=== PATIENT | male | born 1980 | race Caucasian/White ===

== ENCOUNTER 2020-01-09 14:55 | Emergency (ER) | payer OTHER, SELFPAY ==
--- NOTE | ~2020-01-09 | XR_ITS ---
XR knee LT min 4V 01/09/2020 15:25 Indication: Knee pain Procedure: 4 views left knee Comparison: 08/03/2006 Findings: No fracture, subluxation or dislocation. No significant joint effusion. No radiopaque forei gn bodies. Impression: 1: No significant bone or joint abnormality. Reviewed, dictated and finalized at location B. ENT REGISTRATION CLERK Impression: 1: No significant bone or joint abnormality.
[2020-01-09 15:02] VITALS: BP 160/90; PULSE 98; RESP 16; TEMP 36.6; O2SAT 98
--- NOTE | 2020-01-09 15:22 | ED.LOWEXIN ---
HPI - Extremity Injury (Lower) General Chief Complaint: Extremity Injury, Lower Stated Complaint: L Knee injury Time Seen by Provider: 01/09/20 15:05 Source: patient Mode of arrival: wheelchair Limitations: no limitations History of Present Illness HPI Narrative: This is a 39 year old male that presents to the ER for left knee pain since an injury just prior to arrival. Reports he and his son were carrying a dresser and his son dropped the dresser. Reports the dresser hit his left knee. Reports since he has had pain in the medial portion of his knee. Reports he felt a pop in the knee. He has unable to bear weight on the leg due to pain. Denies other injuries, decreased ROM or numbness. Related Data Allergies Allergy/AdvReac Type Severity Reaction Status Date / Time No Known Allergies Allergy Verified 01/09/20 15:05 Review of Systems Review of Systems: Narrative: CONSTITUTIONAL: Denies fever MUSCULOSKELETAL: Reports joint pain, and myalgia. NEUROLOGIC: Denies numbness All systems reviewed & are unremarkable except as noted in HPI and below PMFSH Past Medical History Medical History (Updated 01/09/20 @ 15:55 by Masha Hernández PA-C) History of COPD History of diabetes mellitus History of hypertension Social History Social History (Updated 01/09/20 @ 15:26 by Masha Hernández PA-C) Smoking status: Current every day smoker Gender identity (if verbalized by the patient): Male Exam Narrative: Exam Narrative: GENERAL: Well-appearing, well-nourished, and in no acute distress. HEAD: Normocephalic, atraumatic. EYES: EOMI. EXTREMITIES: Normal range of motion. No edema. Mild bruising about the left knee. Tender to palpation of the medial joint line of the left knee. Normal DP pulses SKIN: Warm, dry, no rash. NEURO: No focal deficits. Alert and oriented x3. PSYCH: Normal mood and affect Course Vital Signs Vital signs: Vital Signs Temperature 98 F 01/09/20 15:02 Pulse Rate 98 01/09/20 15:02 Respiratory Rate 16 01/09/20 15:02 Blood Pressure 160/90 H 01/09/20 15:02 Pulse Oximetry 98 01/09/20 15:02 Temperature 98 F 01/09/20 15:02 Pulse Rate 98 01/09/20 15:02 Respiratory Rate 16 01/09/20 15:02 Blood Pressure 160/90 H 01/09/20 15:02 Pulse Oximetry 98 01/09/20 15:02 MDM - Extremity Injury (Lower) MDM Narrative Medical decision making narrative: Patient presents the emergency department for left knee pain after an injury today. Reports a twisting injury and feeling a pop. Left knee x-ray is without acute changes. Patiently placed in a knee immobilizer and given crutches. He is to follow-up with his orthopedic surgeon. Patient was given warnings to return to the ER Imaging Data Radiologist's impression: ITS Impressions Knee X-Ray 01/09/20 15:26 Impression: 1: No significant bone or joint abnormality. Critical Care Time Critical Care Time Critical Care Time: No Discharge Plan Discharge Clinical Impression: Acute pain of left knee Patient Disposition: Home, Self-Care Condition: Stable Instructions: Knee Sprain (ED) Additional Instructions: Return to the emergency department if you experience fever, redness and swelling of your leg, or any other symptoms that are concerning to you Wear knee immobilizer and use crutches. Elevate. Ice the area. [id number] pain medication as needed Follow-up with your orthopedic doctor Follow-up/Referrals: Jarrell,Uyen Barrientos MD [Primary Care Provider] - Time of Disposition: 15:55
== END 2020-01-09 16:23 | disposition home or self-care (01) ==
PROVIDERS: Emergency Provider Emergency Medicine; PCP Family Medicine
DX: M25.562 Pain in left knee (principal); E11.9 Type 2 diabetes mellitus without complications; J44.9 Chronic obstructive pulmonary disease, unspecified; I10 Essential (primary) hypertension; F17.200 Nicotine dependence, unspecified, uncomplicated; W20.8XXA Other cause of strike by thrown, projected or falling object, initial encounter
CPT/HCPCS: 73564; 99283; A9270

== ENCOUNTER 2020-03-04 23:22 | Emergency (ER) | payer OTHER, SELFPAY ==
--- NOTE | ~2020-03-04 | CT_ITS ---
EXAMINATION: CT abdomen pelvis wo con DATE: 03/05/2020 00:36 INDICATION: Right flank pain for 5 days, hematuria. History of kidney stones. TECHNIQUE: Computed tomography (CT) of the abdomen and pelvis was performed without intravenous contr ast. Automated exposure control and iterative reconstruction technique were employed. Exam dose: 677 .04 mGy-cm total exam DLP. COMPARISON: 12/25/2018 CT abdomen and pelvis FINDINGS: The lung bases are clear. Normal heart size. No pericardial or pleural effusion. Hepatic steatosis. Number is present. No bile duct or pancreatic duct dilatation. No hepatic, splenic , pancreatic, adrenal or renal space-occupying mass lesion is evident on this limited noncontrast exa mination. 9 mm nonobstructing lower pole right renal calculus with attenuation of 1130 Hounsfield units. No other urinary tract calculus. There is a prominent right renal pelvis likely due to right ureterop elvic disproportion but no right-sided hydronephrosis is evident. Normal caliber of the abdominal aorta. No intraperitoneal or retroperitoneal or pelvic mass lesion or adenopathy or ascites. Moderate prostate enlargement and prostate calcifications. Normal appendix. No bowel obstruction or intraperitoneal free air. Small fat-containing umbilical hernia. Mild to moderate degenerative changes of the lumbar spine. No suspicious osteolytic or osteoblastic l esions. IMPRESSION: Nonobstructive right nephrolithiasis Normal appendix. Reviewed, dictated and finalized at [facility]. Reviewed, dictated and finalized at location A.
[2020-03-04 23:24] VITALS: BP 140/88; PULSE 110; RESP 20; TEMP 37.7; O2SAT 99
[2020-03-04 23:48] LABS: Basophils Absolute Auto 0.1 K/mm3 (0.0-0.1); Basophils Percent Auto 0.5 % (0.2-1.2); Eosinophils Absolute Auto 0.1 K/mm3 (0-0.3); Eosinophils Percent Auto 1.1 % (0-4.4); Hematocrit 48.9 % (42.0-52.0); Hemoglobin 16.5 g/dL (14.0-18.0); Immature Granulocyte Absolute 0.03 K/mm3 (0.00-0.031); Immature Granulocyte Percent A 0.2 % (0-0.5); Lymphocytes Absolute Auto 3.15 K/mm3 (0.9-3.2); Mean Corpuscular HGB Conc 33.7 g/dl (32-36); Mean Corpuscular Hemoglobin 30.2 pg (26-34); Mean Corpuscular Volume 89.4 fl (80-100); Mean Platelet Volume 11.5 fl (7.4-10.4); Monocytes Absolute Auto 0.7 K/mm3 (0.1-0.6); Monocytes Percent Auto 5.1 % (2.6-8.5); Neutrophils Absolute Auto 9.1 K/mm3 (1.3-6.7); Neutrophils Percent Auto 69.1 % (45.5-73.1); Platelet Count Result 260 k/mm3 (150-375); Red Blood Count 5.47 M/mm3 (4.6-6.20); Red Cell Distribution Width 12.6 % (11.5-14.5); White Blood Count 13.1 K/mm3 (4.5-10.0)
[2020-03-04 23:51] LABS: Add Urine Microscopic? YES; Appearance Urine Clear (Clear); Bilirubin Urine Negative (Negative); Blood Urine Negative (Negative); Color Urine Yellow (Yellow); Glucose Urine UA 3+ mg/dL (Negative); Ketones Urine Negative (Negative); Leukocyte Esterase Ur Negative LEU/UL (Negative); Nitrate Urine Negative (Negative); Protein Urine Negative (Negative); RBC Urine 0-2 /hpf (0-2); Urobilinogen Urine Negative mg/dL (<2.0); WBC Urine 0-3 /hpf
[2020-03-04 23:52] LABS: Specific Grav Ur 1.031 (1.001-1.035)
[2020-03-05] LABS: Alanine Aminotransferase 21 U/L (4-50); Albumin Level 4.6 g/dL (3.5-5.1); Alkaline Phosphatase 141 U/L (38-126); Aspartate Amino Transferase 26 U/L (17-59); Bilirubin,Total 0.3 mg/dL (0.2-1.3); Blood Urea Nitrogen 16 mg/dL (9-20); Calcium 9.5 mg/dL (8.4-10.2); Carbon Dioxide 30 mmol/L (22-30); Chloride 96 mmol/L (98-107); Estimated Glomerular Filt Rate > 60; Glucose 261 mg/dL (75-110); Lipase 92 U/L (23-300); Potassium 3.3 mmol/L (3.4-5.0); Sodium 137 mmol/L (137-145)
[2020-03-05] MEDS: KETOROLAC 30 MG/ML VIAL (*BKC) IV PUSH (00:30)
--- NOTE | 2020-03-05 00:31 | ED.ABDPAIN ---
HPI - Abdominal Pain General Chief Complaint: Abdominal Pain Stated Complaint: R FLANK PAIN Time Seen by Provider: 03/04/20 23:36 Source: patient Mode of arrival: ambulatory Limitations: no limitations History of Present Illness HPI narrative: Patient is a 39-year-old male who presents to the emergency department complaint of right flank pain. Patient reports onset of symptoms a few days ago. Pain is located in the right CVA region. He denies any radiation to his abdomen. He has noted some hematuria. He denies any nausea or vomiting. Patient has prior history of kidney stones and states this feels somewhat similar. MD elicited complaint: flank pain Pertinent past history: kidney stones Onset (ago): day(s) Location: R flank Quality: aching Radiation: none Migration to: no migration Exacerbating factors: movement Associated symptoms: hematuria Related Data Allergies Allergy/AdvReac Type Severity Reaction Status Date / Time No Known Allergies Allergy Verified 03/04/20 23:23 Review of Systems Review of Systems: All systems reviewed & are unremarkable except as noted in HPI and below Gastrointestinal: Gastrointestinal: Denies nausea and Denies vomiting Genitourinary: Genitourinary: Reports hematuria and Reports flank pain [facility] Past Medical History Medical History (Updated 03/05/20 @ 01:18 by Kellee Dukes MD) History of COPD History of diabetes mellitus History of hypertension Surgical History Surgical History History of cardiac catheterization 2013, no coronary artery disease History of lithotripsy Social History Social History Smoking status: Current every day smoker Gender identity (if verbalized by the patient): Male Exam Const: General: cooperative, no acute distress and alert Nutritional Appearance: obese Orientation/consciousness: patient oriented x3 Limitations: no limitations HENMT: Mouth: Yes lip normal and Yes moist mucous membranes Resp: Effort & Inspection: normal respiratory effort Auscultation: clear to auscultation bilaterally Cardio: Rate: regular rate Rhythm: regular rhythm GI: GI Palp: Yes Soft to palpation and No Tenderness to palpation present (GI) Auscultation: normal bowel sounds : General: Yes CVA tenderness on the right Skin: General skin exam: normal color Neuro: General: patient oriented x3 Cognition (Neuro): normal cognition Speech: normal speech Extrem: General: normal to inspection, full ROM and no clubbing, cyanosis or edema Psych: Mental Status: mental status grossly normal Affect: normal affect Attitude: cooperative Course Course Emergency Course: Patient with findings of unchanged nonobstructing right renal calyceal stone. Suspect pain may be musculoskeletal. He does report pain is worse with movement. Counseled on symptomatic management with [id number] analgesics. Advised importance of primary care follow-up. Vital Signs Vital signs: Vital Signs Temperature 99.9 F H 03/04/20 23:24 Pulse Rate 110 H 03/04/20 23:24 Respiratory Rate 20 03/04/20 23:24 Blood Pressure 140/88 03/04/20 23:24 Pulse Oximetry 99 03/04/20 23:24 Temperature 99.9 F H 03/04/20 23:24 Pulse Rate 110 H 03/04/20 23:24 Respiratory Rate 20 03/04/20 23:24 Blood Pressure 140/88 03/04/20 23:24 Pulse Oximetry 99 03/04/20 23:24 MDM - Abdominal Pain Medical Records Attestation: I reviewed the patient's medical records. Lab Data Attestation: I reviewed the patient's lab results. Result diagrams: 03/04/20 23:42 03/04/20 23:42 Labs: Lab Results 03/04/20 03/04/20 03/04/20 Range/Units 23:42 23:42 23:42 WBC 13.1 H (4.5-10.0) K/mm3 RBC 5.47 (4.6-6.20) M/mm3 Hgb 16.5 (14.0-18.0) g/dL Hct 48.9 (42.0-52.0) % MCV 89.4 (80-100) fl MCH 30.2 (26-34) pg MCHC
[2020-03-05 01:31] VITALS: BP 141/97; PULSE 80; RESP 19; TEMP 36.8; O2SAT 100
== END 2020-03-05 01:32 | disposition home or self-care (01) ==
PROVIDERS: Emergency Provider Emergency Medicine; PCP Family Medicine
DX: R10.9 Unspecified abdominal pain (principal); J44.9 Chronic obstructive pulmonary disease, unspecified; E11.9 Type 2 diabetes mellitus without complications; I10 Essential (primary) hypertension; F17.200 Nicotine dependence, unspecified, uncomplicated; N20.0 Calculus of kidney
CPT/HCPCS: 36415; 74176; 80053; 81001; 83690; 85025; 96374; 99284; J1885

== ENCOUNTER 2020-04-27 15:49 | Inpatient (IN) | payer OTHER, SELFPAY ==
[2020-04-27] VITALS (9 sets, daily range): BP systolic 111–158; BP diastolic 59–83; PULSE 81–124; RESP 18–26; TEMP 38.2; O2SAT 93–97; BMI 34.2
--- NOTE | ~2020-04-27 | XR_ITS ---
EXAMINATION: XR chest 1V portable DATE: 04/27/2020 17:27 INDICATION: Cough, shortness of breath and sore throat TECHNIQUE: frontal view of the chest was obtained. COMPARISON: Chest radiograph dated 08/13/2015 FINDINGS: Patchy airspace opacities most prominent in the left lower lung zone and to a lesser degree in the ri ght upper and lower lung zones. No pleural effusion or pneumothorax. The cardiomediastinal silhouette is normal. IMPRESSION: 1. Bilateral airspace disease concerning for pneumonia with differential including less likely pulmon carlos edema or atelectasis. Reviewed, dictated and finalized at location A. IMPRESSION: 1. Bilateral airspace disease concerning for pneumonia with differential includ ing less likely pulmonary edema or atelectasis.
--- NOTE | ~2020-04-27 | XR_ITS ---
XR chest 1V portable 04/29/2020 05:40 Indication: Pneumonia. Dyspnea. Procedure: AP portable chest Comparison: Comparison to multiple prior studies sequentially, with oldest reviewed study dated 12/04. Findings: Cardiomegaly with interstitial edema. No significant change. No pleural effusion or pneumot horax. No acute osseous abnormality. Impression: 1: Cardiomegaly with mild interstitial edema. No significant change from recent study. Reviewed, dictated and finalized at location A. Impression: 1: Cardiomegaly with mild interstitial edema. No significant change from recent study.
--- NOTE | ~2020-04-27 | CT_ITS ---
EXAMINATION: CTA chest PE protocol DATE: 04/28/2020 15:33 INDICATION: Shortness of breath, cough and elevated d-dimer. TECHNIQUE: Computed tomography (CT) pulmonary angiogram of the chest was performed with 100 mL Omnipa que-350 intravenous contrast. Additional 3D reconstructions utilizing coronal maximum intensity proje ction (MIP) were performed. Automated exposure control and iterative reconstruction technique were em ployed. The dose-length product was 880.56 mGy-cm. COMPARISON: None FINDINGS: Good contrast opacification of the pulmonary arteries. There is mild streak artifact from dense contr ast in the superior vena cava and right atrium. Minimal scattered respiratory motion artifact which d oes not significantly limit evaluation. No pulmonary embolism. Patchy dense consolidation in the basi lar segments of the left lower lobe and the inferior segment of the lingula. Mild discoid atelectasis in the superior segment of the left lower lobe. Right lung is clear with no pneumonia or other pulmo nary infiltrates. No septal line thickening to suggest pulmonary edema. No pleural effusion or pneumo thorax. Enlarged likely reactive left hilar lymphadenopathy. Heart size is normal. Atherosclerotic co ronary artery calcific a cyst. No pericardial effusion. Likely benign 1 cm right thyroid nodule. Diff use hepatic steatosis. Mild thoracic spondylosis. IMPRESSION: 1. No pulmonary embolism. 2. Extensive patchy consolidation in the anterior segment of the lingula and the basilar segments of the left lower lobe most consistent with pneumonia with likely reactive left hilar lymphadenopathy. 3. Diffuse hepatic steatosis. Reviewed, dictated and finalized at location A. IMPRESSION: 1. No pulmonary embolism. 2. Extensive patchy consolidation in the anterior segment of the lingula and th e basilar segments of the left lower lobe most consistent with pneumonia with l ikely reactive left hilar lymphadenopathy. 3. Diffuse hepatic steatosis.
--- NOTE | 2020-04-27 16:07 | ECG_ITS ---
Measurements Intervals Leonard Rate: 103 P: 52 CT: 156 QRS: 11 QRSD: 97 T: 51 QT: 400 QTc: 524 Interpretive Statements SINUS TACHYCARDIA POSSIBLE LEFT ATRIAL ENLARGEMENT BASELINE WANDER- I, II, AVR, AVL, AVF, V1 ABNORMAL ECG Electronically Signed On 04-27-2020 17:21:44 CDT by Juan Jose Villegas D.O.
[2020-04-27] MEDS: SODIUM CHLORIDE 0.9% IV 1,000 ML 999 ML IV CONT ×2 (16:13→17:23)
--- NOTE | 2020-04-27 16:22 | ED.SOB ---
HPI - SOB/Dyspnea General Chief Complaint: Shortness of Breath/Dyspnea Stated Complaint: cp Time Seen by Provider: 04/27/20 16:02 Source: RN notes reviewed History of Present Illness HPI Narrative: Patient presents emergency department from home for shortness of breath. Patient states symptoms began 2 days ago. States has had a subjective fever associated with body aches cough productive of sputum sore throat and rhinorrhea. He denies having any chest pain abdominal pain nausea vomiting. Patient states he does have a history of COPD and does smoke but has been cutting back. He has been using his inhaler at home as prescribed denies any other symptoms at this time Related Data Home Medications Medication Instructions Recorded Confirmed gabapentin 300 mg PO DAILY 04/27/20 insulin glargine [Basaglar KwikPen SUBCUT 04/27/20 U-100 Insulin] losartan-hydrochlorothiazide 1 tablet PO DAILY 04/27/20 metoprolol tartrate 100 mg PO DAILY 04/27/20 sertraline 100 mg PO DAILY 04/27/20 zolpidem 10 mg PO HS 04/27/20 Allergies Allergy/AdvReac Type Severity Reaction Status Date / Time No Known Allergies Allergy Verified 04/27/20 15:58 Review of Systems Review of Systems: Narrative: Gen.: Reports fevers and chills ENT: Reports sore throat and congestion Respiratory: See HPI CV: Denies chest pain or palpitations GI: Denies abdominal pain nausea, emesis or diarrhea denies burning, urgency, frequency or hematuria Musculoskeletal: Denies back pain or muscle pain Neuro: Denies numbness, tingling, weakness or focal weakness Skin: Denies rash Except as documented, all other systems reviewed and negative [facility] Past Medical History Medical History History of COPD History of diabetes mellitus History of hypertension Social History Social History Smoking status: Current every day smoker Gender identity (if verbalized by the patient): Male Exam Narrative: Exam Narrative: APPEARANCE: No acute distress, nontoxic, resting in bed EYES: EOMI HEENT: Normocephalic, atraumatic, OMM RESPIRATORY: No respiratory distress wheezing sounds bilateral lung fowler, no rhonchi or rales throughout the bilateral lung fowler, no rhonchi or rales CARDIOVASCULAR: Regular rate and rhythm without murmurs rubs or gallops. ABDOMINAL: Soft, nontender, nondistended, no rebound or guarding MUSCULOSKELETAl: Moves all extremities. No clubbing, cyanosis or edema. NEURO: Awake and alert. Following commands, speech normal, no focal deficits SKIN:: Warm, dry. No rashes lesions or abrasions PSYCHIATRIC: Normal affect/mood, Course Course Emergency Course: Discussed with [employer]CHANDISER Ashly for Dr. Zhang presentation work-up agrees with admission at this time. Request patient started on Rocephin and Zithromax Discussed with patient and family results of workup and diagnosis. Discussed need for admission. Patient and family understand and agree to current treatment plan While the patient does have an elevated lactic acid of 4.0 he was given a total 2 L of fluids will refrain from any boluses further at this time secondary to the concern of possible COVID Vital Signs Vital signs: Vital Signs Temperature 100.8 F H 04/27/20 15:55 Pulse Rate 103 H 04/27/20 15:55 Respiratory Rate 18 04/27/20 15:55 Blood Pressure 158/83 H 04/27/20 15:55 Pulse Oximetry 93 04/27/20 15:55 Temperature 100.8 F H 04/27/20 18:01 Pulse Rate 92 04/27/20 17:30 Respiratory Rate 18 04/27/20 17:30 Blood Pressure 127/73 04/27/20 17:30 Pulse Oximetry 93 04/27/20 17:30 MDM - SOB/Dyspnea Lab Data Result diagrams: 04/27/20 16:20 04/27/20 16:20 Labs: Lab Results 04/27/20 04/27/20 04/27/20 Range/Units 16:14 16:19 16:20 WBC 17.4 H (4.5-10.0) K/mm3 RBC 5.21 (4.6-6.20) M/mm3 Hgb 15.5 (14.0-18.0) g/dL Hct
[2020-04-27 16:32] LABS: Basophils Absolute Auto 0.1 K/mm3 (0.0-0.1); Basophils Percent Auto 0.6 % (0.2-1.2); Eosinophils Absolute Auto 0.1 K/mm3 (0-0.3); Eosinophils Percent Auto 0.3 % (0-4.4); Hematocrit 44.3 % (42.0-52.0); Hemoglobin 15.5 g/dL (14.0-18.0); Immature Granulocyte Absolute 0.17 K/mm3 (0.00-0.031); Lymphocytes Absolute Auto 1.11 K/mm3 (0.9-3.2); Lymphocytes Percent Auto 6.4 % (18.3-44.2); Mean Corpuscular Hemoglobin 29.8 pg (26-34); Mean Platelet Volume 12.6 fl (7.4-10.4); Monocytes Absolute Auto 1.1 K/mm3 (0.1-0.6); Neutrophils Absolute Auto 14.9 K/mm3 (1.3-6.7); Neutrophils Percent Auto 85.7 % (45.5-73.1); Platelet Count Result 235 k/mm3 (150-375); Red Blood Count 5.21 M/mm3 (4.6-6.20); Red Cell Distribution Width 12.4 % (11.5-14.5); White Blood Count 17.4 K/mm3 (4.5-10.0)
[2020-04-27] MEDS: ALBUTEROL SULFATE (*SP) AEROSOL 1 PUFF 2 PUFF INHALATION ×2 (16:38→20:00)
[2020-04-27 16:51] LABS: Albumin Level 4.1 g/dL (3.5-5.1); Alkaline Phosphatase 189 U/L (38-126); Aspartate Amino Transferase 19 U/L (17-59); Bilirubin,Total 0.5 mg/dL (0.2-1.3); Blood Urea Nitrogen 15 mg/dL (9-20); Calcium 9.2 mg/dL (8.4-10.2); Carbon Dioxide 27 mmol/L (22-30); Chloride 87 mmol/L (98-107); Estimated CRCL calculation 129 ml/min; Estimated Glomerular Filt Rate > 60; Glucose 403 mg/dL (75-110); Potassium 2.5 mmol/L (3.4-5.0); Sodium 128 mmol/L (137-145)
[2020-04-27] MEDS: KETOROLAC 30 MG/ML VIAL (*BKC) IV PUSH (17:23)
[2020-04-27] MEDS: POTASSIUM CHLORIDE 20 MEQ TABLET 40 MEQ PO (17:24)
[2020-04-27 17:58] LABS: Magnesium 1.5 mg/dL (1.6-2.3)
[2020-04-27 18:02] LABS: Alanine Aminotransferase 18 U/L (4-50)
[2020-04-27] MEDS: INSULIN ASPART (*BKC) 100 UNITS/ML 6 UNITS SUB-Q (18:14)
[2020-04-27] MEDS: MAGNESIUM SULF 2 GM/WATER 50ML 2 GM/50 ML BAG IVPB (18:29)
[2020-04-27] MEDS: SODIUM CHLORIDE 0.9% IV 1,000 ML 100 ML IV CONT (18:30)
[2020-04-27 18:35] LABS: Glucose Point of Care 303 (65-105)
[2020-04-27 19:29] LABS: Reflex Lactic Acid Yes or No Add Lactic
[2020-04-27 19:35] LABS: Blood Urea Nitrogen 14 mg/dL (9-20); Calcium 8.2 mg/dL (8.4-10.2); Carbon Dioxide 26 mmol/L (22-30); Chloride 92 mmol/L (98-107); Estimated CRCL calculation 144 ml/min; Estimated Glomerular Filt Rate > 60; Glucose 327 mg/dL (75-110); Potassium 2.8 mmol/L (3.4-5.0); Sodium 127 mmol/L (137-145)
--- NOTE | 2020-04-27 20:09 | ADMIMU ---
This patient, Robert Dickson, was admitted to IMU status, and placed in Intensive Care Unit-3 on 04/27/20 at 1935. Patient/family oriented to hospital policies and general routines including ID bracelet, bed and alarms, visiting hours, pain management, procedures, bathroom and other care routines, personal items, smoking policy, room service/diet, and visiting hours. Valuables list has been completed. Valuables list verbally confirmed with patient; patient unable to sign due to droplet isolation. Information on how to activate the Rapid Response Team has been discussed. Patient/Family are encouraged to report perceived risks to care and to ask questions if they do not understand what they are told or what they should do.
--- NOTE | 2020-04-27 20:16 | ADMGEN ---
This patient, Robert Dickson, was admitted to Intensive Care Unit-3. Patient/family oriented to hospital policies and general routines including ID bracelet, bed and alarms, visiting hours, pain management, procedures, bathroom and other care routines, personal items, smoking policy, room service/diet, and visiting hours. Valuables list has been completed. Information on how to activate the Rapid Response Team has been discussed. Patient/Family are encouraged to report perceived risks to care and to ask questions if they do not understand what they are told or what they should do.
[2020-04-27 21:09] LABS: Lactic Acid 2.3 mmol/L (0.7-2.1)
--- NOTE | 2020-04-27 21:44 | PM.IMHP ---
H&P: HPI History of Present Illness Chief complaint: Severe sepsis, kidney acquired pneumonia, Narrative: Robert Dickson is a 39 year old male who has COPD and insulin-dependent diabetes. The patient stated he has been running a low-grade fever for the last couple days. His temperature is typically under 100. He said he feels like he has the flu. He has a dry cough and headache from coughing so much. He stated that he has not been around any sick contacts. He also has body aches like he has the flu. No nausea vomiting or diarrhea. Chest x-ray was read per Radiology as bilateral airspace disease concerning for pneumonia with differential including least likely pulmonary edema or atelectasis. On aZithromax and Rocephin. White count is up to 17.4. Although it looks like patient typically has an elevated white count. Patient's potassium was found to be 2.8 knees getting a K rider now. Sodium was 127. He was started on IV fluids. He is also started on Solu-Medrol. Lactic was 4.0 and then 2.3. The magnesium was 1.5 and was supplemented. His blood sugar was in the 300s. He stated that is about where it stays. COVID testing is pending. He is in isolation. He was also given insulin in the emergency room. Date of service is 04/27/2020 Review of Systems Review of Systems: All systems reviewed & are unremarkable except as noted in HPI and below Constitutional: Constitutional: Reports as per HPI and Reports no additional constitutional complaints Eyes: Eyes: Reports as per HPI and Reports no additional eye complaints ENT: Reports system reviewed and no additional complaints, except as documented and Reports Normal hearing present Cardiovascular: Cardiovascular: Reports no additional cardiovascular complaints Respiratory: Respiratory: Reports no additional respiratory complaints and Reports no additional respiratory complaints Gastrointestinal: Gastrointestinal: Reports as per HPI and Reports no additional gastrointestinal complaints Musculoskeletal: Musculoskeletal: Reports no additional musculoskeletal complaints Integumentary/Breasts: Skin/Breast: Reports system reviewed and no additional complaints, except as docu and Reports as per HPI Neurologic: Reports system reviewed and no additional complaints, except as documented, Reports as per HPI and Reports Normal hearing present Psychiatric: Psychiatric: Reports no additional psychiatric complaints and Reports as per HPI Endocrine: Endocrine: Reports no additional endocrine complaints Hematologic/Lymphatic: Hematologic/Lymphatic: Reports no additional hematologic/lymphatic complaints Allergic/Immunologic: Allergic/Immunologic: Reports no additional allergic/immunologic complaints PMFSH Past Medical History Medical History (Updated 04/27/20 @ 22:03 by Ashly Salas NP) COPD (chronic obstructive pulmonary disease) Depression with anxiety DM2 (diabetes mellitus, type 2) History of COPD History of diabetes mellitus History of hypertension HTN (hypertension) with goal to be determined Kidney stones Neuropathy Surgical History Surgical History (Updated 04/27/20 @ 21:54 by Ashly Salas NP) H/O tooth extraction History of cardiac catheterization 2013, no coronary artery disease History of lithotripsy Family History Family History Mother Cerebrovascular accident Hypertension Depression Father Diabetes mellitus Heart disease Cancer Grandparent Heart disease COPD (chronic obstructive pulmonary disease) Kidney disease Social History Social History (Updated 04/27/20 @ 21:56 by Ashly Salas NP) Social History: The patient is and lives with his . He has 3 children. 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 He is a full code. And his is the power of employment law attorney. Patient is down to smoking 1 pack a cigarettes a day he said he used to smoke 2 and 3 packs of cigarettes a day. He denies any
[2020-04-27] MEDS: GABAPENTIN 300 MG CAPSULE 600 MG PO (22:06)
[2020-04-27 22:40] LABS: Influenza Control Positive
[2020-04-27] MEDS: methylPREDNISolone SOD SUCC 125 MG VIAL 60 MG IV PUSH (23:34)
[2020-04-28] VITALS (11 sets, daily range): BP systolic 134–149; BP diastolic 69–87; PULSE 74–93; RESP 14–25; TEMP 35.6–37.7; O2SAT 89–96
[2020-04-28 01:14] LABS: Magnesium 1.8 mg/dL (1.6-2.3)
[2020-04-28 01:17] LABS: Blood Urea Nitrogen 14 mg/dL (9-20); Calcium 8.2 mg/dL (8.4-10.2); Carbon Dioxide 25 mmol/L (22-30); Chloride 95 mmol/L (98-107); Estimated CRCL calculation 164 ml/min; Estimated Glomerular Filt Rate > 60; Glucose 296 mg/dL (75-110); Potassium 2.9 mmol/L (3.4-5.0); Sodium 130 mmol/L (137-145)
[2020-04-28 05:31] LABS: Basophils Percent Auto 0.1 % (0.2-1.2); Hematocrit 39.8 % (42.0-52.0); Hemoglobin 13.9 g/dL (14.0-18.0); Immature Granulocyte Absolute 0.09 K/mm3 (0.00-0.031); Immature Granulocyte Percent A 0.7 % (0-0.5); Lymphocytes Absolute Auto 0.59 K/mm3 (0.9-3.2); Lymphocytes Percent Auto 4.3 % (18.3-44.2); Mean Corpuscular HGB Conc 34.9 g/dl (32-36); Mean Platelet Volume 11.9 fl (7.4-10.4); Monocytes Absolute Auto 0.3 K/mm3 (0.1-0.6); Monocytes Percent Auto 2.4 % (2.6-8.5); Neutrophils Absolute Auto 12.8 K/mm3 (1.3-6.7); Neutrophils Percent Auto 92.5 % (45.5-73.1); Platelet Count Result 216 k/mm3 (150-375); Red Blood Count 4.63 M/mm3 (4.6-6.20); Red Cell Distribution Width 12.5 % (11.5-14.5); White Blood Count 13.8 K/mm3 (4.5-10.0)
[2020-04-28] MEDS: methylPREDNISolone SOD SUCC 125 MG VIAL 60 MG IV PUSH ×2 (05:38→12:57)
[2020-04-28] MEDS: SODIUM CHLORIDE 0.9% IV 1,000 ML 100 ML IV CONT ×2 (05:40→17:11)
[2020-04-28 05:47] LABS: Alanine Aminotransferase 13 U/L (4-50); Albumin Level 3.5 g/dL (3.5-5.1); Alkaline Phosphatase 158 U/L (38-126); Aspartate Amino Transferase 20 U/L (17-59); Bilirubin,Total 0.4 mg/dL (0.2-1.3); Blood Urea Nitrogen 16 mg/dL (9-20); Calcium 8.7 mg/dL (8.4-10.2); Carbon Dioxide 26 mmol/L (22-30); Chloride 96 mmol/L (98-107); Estimated CRCL calculation 163 ml/min; Estimated Glomerular Filt Rate > 60; Glucose 390 mg/dL (75-110); Potassium 3.3 mmol/L (3.4-5.0); Sodium 131 mmol/L (137-145)
[2020-04-28 08:14] LABS: Hemoglobin A1C 10.8 % (<5.7)
[2020-04-28] MEDS: ALBUTEROL SULFATE (*SP) AEROSOL 1 PUFF 2 PUFF INHALATION ×4 (08:34→20:11)
[2020-04-28] MEDS: SERTRALINE HCL 50 MG TABLET 150 MG PO (08:47)
[2020-04-28] MEDS: GABAPENTIN 300 MG CAPSULE 600 MG PO ×2 (08:47→19:59)
[2020-04-28] MEDS: INSULIN GLARGINE (*BKC) 100 UNITS/ML 80 UNITS SUB-Q (09:29)
[2020-04-28] MEDS: INSULIN ASPART (*BKC) 100 UNITS/ML SUB-Q ×4 (09:46→18:15)
[2020-04-28 09:50] LABS: Glucose Point of Care 386 (65-105)
[2020-04-28] MEDS: MAGNESIUM OXIDE 400 MG TABLET PO (09:56)
[2020-04-28] MEDS: POTASSIUM CHLORIDE 20 MEQ TABLET 40 MEQ PO (09:56)
[2020-04-28] MEDS: KETOROLAC 15 MG/ML VIAL (*BKC) IV PUSH ×2 (10:12→21:31)
[2020-04-28 10:26] LABS: INR 1.3; Prothrombin Time 16.1 Seconds (11.1-14.7)
[2020-04-28 10:29] LABS: D Dimer 1.55 ug/mL (<0.48)
[2020-04-28 13:07] LABS: Glucose Point of Care 436 (65-105)
[2020-04-28 13:20] LABS: SARS-CoV-2 RNA PCR Negative
[2020-04-28] MEDS: INSULIN ASPART (*BKC) 100 UNITS/ML 10 UNITS SUB-Q (13:29)
--- NOTE | 2020-04-28 14:18 | PC.NURSE ---
This patient, Robert Dickson, was transferred to [[id number] ] on 04/28/20 at 1400. Personal belongings sent with patient. Belongings list checked and signed with receiving [ ]. Report given to [ JON Fish]. Appropriate documentation sent with patient.
[2020-04-28] MEDS: NICOTINE (*PBKC) 21 MG PATCH 1 PATCH TRANSDERM (15:17)
[2020-04-28 15:19] LABS: Glucose Point of Care 412 (65-105)
--- NOTE | 2020-04-28 15:43 | PM.IMPN ---
Progress Note: A&P Assessment and Plan (1) Community acquired pneumonia: Code(s): J18.9 - Pneumonia, unspecified organism Status: Acute Assessment and Plan: A Zithromax and Rocephin. Continue to monitor QT interval.. Sputum cultures are pending. 04/28/20 15:43 Patient is a 39-year-old male with history of uncontrolled diabetes patient is a heavy smoker used to smoke 3 pack per day has now reduced down to 1 pack per day presented emergency department with a complaint of cough shortness of breath, malaise and fatigue, patient had a chest x-ray which showed pulmonary congestion pneumonia concern the patient may have a COVID-19 it was tested and is negative, most likely patient has community-acquired pneumonia will have started the patient Rocephin and azithromycin, patient has elevated D-dimer to further evaluate will do the CTA of the chest which is pending, currently patient states feeling better not a short of breath as when he arrived denies any fever or chills, for emergency department patient was started on high dose of prednisone 60 mg q.i.d. for COPD and possible COVID-19, patient has uncontrolled diabetes will go reduce down to to 60 mg q.day taper as soon as possible (2) Suspected COVID-19 virus infection: Code(s): Z20.828 - Contact with and (suspected) exposure to other viral communicable diseases Status: Acute Assessment and Plan: Patient is being swabbed for covid 19 although in the chest x-ray does not really look like it. Patient is in isolation. Patient COVID-19 is negative patient is off isolation (3) COPD (chronic obstructive pulmonary disease): Code(s): J44.9 - Chronic obstructive pulmonary disease, unspecified Status: Chronic Assessment and Plan: Patient is currently on Solu-Medrol. Will taper Solu-Medrol as patient has uncontrolled diabetes (4) Acute hypokalemia: Code(s): E87.6 - Hypokalemia Status: Acute Assessment and Plan: Replace as necessary he is getting a K rider at this time (5) Hypokalemia: Code(s): E87.6 - Hypokalemia Status: Acute (6) Neuropathy: Code(s): G62.9 - Polyneuropathy, unspecified Status: Chronic Assessment and Plan: Continue with gabapentin. (7) HTN (hypertension) with goal to be determined: Code(s): I10 - Essential (primary) hypertension Status: Chronic Assessment and Plan: Patient's blood pressure is low so I had to hold his amlodipine, losartan, hydrochlorothiazide, and metoprolol due to low blood pressure. I did p.r.n. hydralazine in case the blood pressure becomes higher during the night. (8) Low magnesium level: Code(s): R79.0 - Abnormal level of blood mineral Status: Acute Assessment and Plan: Replace as necessary. (9) Low sodium levels: Code(s): E87.1 - Hypo-osmolality and hyponatremia Status: Acute Assessment and Plan: Patient has IV fluids infusing at this time. Recheck in the a.m.. (10) Depression with anxiety: Code(s): F41.8 - Other specified anxiety disorders Status: Chronic Assessment and Plan: Continue with sertraline (11) DM2 (diabetes mellitus, type 2): Code(s): E11.9 - Type 2 diabetes mellitus without complications Status: Acute Assessment and Plan: Patient stated that his continue with his long-acting insulin and sliding scale insulin. Patient may need to talk to the family life educator before leaving. But he is currently on steroids so I imagine his blood sugars are going to be very high +he may have infectious process and his blood pressures will be high as well. Subjective Date/time seen: 04/28/20 15:43 Patient is a 39-year-old male with history of uncontrolled diabetes patient is a heavy smoker used to smoke 3 pack per day has now reduced down to 1 pack per day presented emergency department with a complaint of cough shortness of breath, malaise and fatigue, patien
[2020-04-28] MEDS: LIDOCAINE 5% PATCH 2 PATCH TRANSDERM (15:58)
[2020-04-28 18:43] LABS: Glucose Point of Care 439 (65-105)
[2020-04-28 19:26] LABS: Glucose Point of Care > 500 (65-105)
[2020-04-28] MEDS: INSULIN GLARGINE (*BKC) 100 UNITS/ML 20 UNITS SUB-Q (19:55)
[2020-04-28] MEDS: INSULIN ASPART (*BKC) 100 UNITS/ML 8 UNITS SUB-Q (21:59)
[2020-04-29 00:33] LABS: Glucose Point of Care 402 (65-105)
[2020-04-29 01:02] LABS: Glucose Point of Care 433 (65-105)
[2020-04-29 01:10] LABS: Blood Urea Nitrogen 27 mg/dL (9-20); Calcium 9.5 mg/dL (8.4-10.2); Carbon Dioxide 26 mmol/L (22-30); Chloride 94 mmol/L (98-107); Estimated CRCL calculation 144 ml/min; Estimated Glomerular Filt Rate > 60; Glucose 395 mg/dL (75-110); Sodium 132 mmol/L (137-145)
[2020-04-29 01:31] LABS: Beta-Hydroxybutyrate/Acetoacetate 0.16 mmol/L (0.02-0.27)
[2020-04-29 02:01] VITALS: BP 137/78; PULSE 76; RESP 16; TEMP 37.1; O2SAT 93
[2020-04-29] MEDS: POTASSIUM CHLORIDE 20 MEQ TABLET 40 MEQ PO ×2 (02:40→08:43)
[2020-04-29] MEDS: SODIUM CHLORIDE 0.9% IV 1,000 ML 100 ML IV CONT (02:41)
[2020-04-29] MEDS: INSULIN ASPART (*BKC) 100 UNITS/ML 8 UNITS SUB-Q (03:00)
[2020-04-29 06:00] VITALS: BP 134/82; PULSE 61; RESP 16; TEMP 36.8; O2SAT 95
[2020-04-29 06:35] LABS: Basophils Percent Auto 0.2 % (0.2-1.2); Eosinophils Percent Auto 0.1 % (0-4.4); Hematocrit 35.8 % (42.0-52.0); Hemoglobin 12.5 g/dL (14.0-18.0); Immature Granulocyte Absolute 0.09 K/mm3 (0.00-0.031); Immature Granulocyte Percent A 0.7 % (0-0.5); Lymphocytes Absolute Auto 1.05 K/mm3 (0.9-3.2); Mean Corpuscular HGB Conc 34.9 g/dl (32-36); Mean Corpuscular Hemoglobin 29.6 pg (26-34); Mean Corpuscular Volume 84.8 fl (80-100); Mean Platelet Volume 12.5 fl (7.4-10.4); Monocytes Absolute Auto 0.6 K/mm3 (0.1-0.6); Monocytes Percent Auto 4.4 % (2.6-8.5); Neutrophils Absolute Auto 11.5 K/mm3 (1.3-6.7); Neutrophils Percent Auto 86.6 % (45.5-73.1); Platelet Count Result 239 k/mm3 (150-375); Red Blood Count 4.22 M/mm3 (4.6-6.20); Red Cell Distribution Width 12.8 % (11.5-14.5); White Blood Count 13.2 K/mm3 (4.5-10.0)
[2020-04-29 06:52] LABS: Magnesium 1.7 mg/dL (1.6-2.3)
[2020-04-29 07:10] LABS: Alanine Aminotransferase 15 U/L (4-50); Albumin Level 3.3 g/dL (3.5-5.1); Alkaline Phosphatase 128 U/L (38-126); Aspartate Amino Transferase 22 U/L (17-59); Bilirubin,Total 0.2 mg/dL (0.2-1.3); Blood Urea Nitrogen 27 mg/dL (9-20); Calcium 9.1 mg/dL (8.4-10.2); Carbon Dioxide 24 mmol/L (22-30); Chloride 99 mmol/L (98-107); Estimated CRCL calculation 163 ml/min; Estimated Glomerular Filt Rate > 60; Glucose 329 mg/dL (75-110); Potassium 3.2 mmol/L (3.4-5.0); Sodium 133 mmol/L (137-145)
[2020-04-29 07:31] LABS: CRP 38.3 mg/dL (<1.0)
[2020-04-29 08:38] LABS: Glucose Point of Care 429 (65-105)
[2020-04-29] MEDS: MAGNESIUM OXIDE 400 MG TABLET PO (08:44)
[2020-04-29] MEDS: GABAPENTIN 300 MG CAPSULE 600 MG PO (08:44)
[2020-04-29] MEDS: NICOTINE (*PBKC) 21 MG PATCH 1 PATCH TRANSDERM (08:45)
[2020-04-29] MEDS: methylPREDNISolone SOD SUCC 125 MG VIAL 60 MG IV PUSH (08:49)
[2020-04-29] MEDS: INSULIN GLARGINE (*BKC) 100 UNITS/ML 80 UNITS SUB-Q (08:50)
[2020-04-29] MEDS: SERTRALINE HCL 50 MG TABLET 150 MG PO (08:50)
[2020-04-29] MEDS: INSULIN ASPART (*BKC) 100 UNITS/ML SUB-Q (08:51)
[2020-04-29] MEDS: LIDOCAINE 5% PATCH 2 PATCH TRANSDERM (08:53)
[2020-04-29 09:00] VITALS: BP 144/85; PULSE 76; PULSE 88; RESP 14; RESP 18; TEMP 36.9; O2SAT 94; O2SAT 96
[2020-04-29 09:40] LABS: Glucose Point of Care 332 (65-105)
[2020-04-29 11:26] LABS: Glucose Point of Care 334 (65-105)
--- NOTE | 2020-04-29 12:23 | PM.DS ---
DS: Admitting Diagnosis Admitting Diagnosis Admitting Diagnosis: Pneumonia, unspecified organism DS: Discharge Diagnosis Discharge Diagnosis (1) Community acquired pneumonia: Code(s): J18.9 - Pneumonia, unspecified organism Status: Acute Assessment and Plan: A Zithromax and Rocephin. Continue to monitor QT interval.. Sputum cultures are pending. 04/28/20 15:43 Patient is a 39-year-old male with history of uncontrolled diabetes patient is a heavy smoker used to smoke 3 pack per day has now reduced down to 1 pack per day presented emergency department with a complaint of cough shortness of breath, malaise and fatigue, patient had a chest x-ray which showed pulmonary congestion pneumonia concern the patient may have a COVID-19 it was tested and is negative, most likely patient has community-acquired pneumonia will have started the patient Rocephin and azithromycin, patient has elevated D-dimer to further evaluate will do the CTA of the chest which is pending, currently patient states feeling better not a short of breath as when he arrived denies any fever or chills, for emergency department patient was started on high dose of prednisone 60 mg q.i.d. for COPD and possible COVID-19, patient has uncontrolled diabetes will go reduce down to to 60 mg q.day taper as soon as possible (2) Suspected COVID-19 virus infection: Code(s): Z20.828 - Contact with and (suspected) exposure to other viral communicable diseases Status: Acute Assessment and Plan: Patient is being swabbed for covid 19 although in the chest x-ray does not really look like it. Patient is in isolation. Patient COVID-19 is negative patient is off isolation (3) COPD (chronic obstructive pulmonary disease): Code(s): J44.9 - Chronic obstructive pulmonary disease, unspecified Status: Chronic Assessment and Plan: Patient is currently on Solu-Medrol. Will taper Solu-Medrol as patient has uncontrolled diabetes (4) Acute hypokalemia: Code(s): E87.6 - Hypokalemia Status: Acute Assessment and Plan: Replace as necessary he is getting a K rider at this time (5) Hypokalemia: Code(s): E87.6 - Hypokalemia Status: Acute (6) Neuropathy: Code(s): G62.9 - Polyneuropathy, unspecified Status: Chronic Assessment and Plan: Continue with gabapentin. (7) HTN (hypertension) with goal to be determined: Code(s): I10 - Essential (primary) hypertension Status: Chronic Assessment and Plan: Patient's blood pressure is low so I had to hold his amlodipine, losartan, hydrochlorothiazide, and metoprolol due to low blood pressure. I did p.r.n. hydralazine in case the blood pressure becomes higher during the night. (8) Low magnesium level: Code(s): R79.0 - Abnormal level of blood mineral Status: Acute Assessment and Plan: Replace as necessary. (9) Low sodium levels: Code(s): E87.1 - Hypo-osmolality and hyponatremia Status: Acute Assessment and Plan: Patient has IV fluids infusing at this time. Recheck in the a.m.. (10) Depression with anxiety: Code(s): F41.8 - Other specified anxiety disorders Status: Chronic Assessment and Plan: Continue with sertraline (11) DM2 (diabetes mellitus, type 2): Code(s): E11.9 - Type 2 diabetes mellitus without complications Status: Acute Assessment and Plan: Patient stated that his continue with his long-acting insulin and sliding scale insulin. Patient may need to talk to the clinical document improvement educator before leaving. But he is currently on steroids so I imagine his blood sugars are going to be very high +he may have infectious process and his blood pressures will be high as well. DS: Summary Hospital Course Reason for hospitalization: Robert Dickson is a 39 year old male who has COPD and insulin-dependent diabetes. The patient stated he has been running a low-grade fever for
--- NOTE | 2020-04-30 14:12 | PCCDE ---
Consult received Friday 04/27 for diabetes education however pt was discharged on Sunday 04/29 before consult could be completed. Attempted to call pt today but the message said the phone had calling restrictions and was unable to leave a message. Will be available per request.
== END 2020-04-29 13:05 | disposition home or self-care (01) | DRG 720 ==
LOC: ANHED 18:30 → ANHICU 18:55 → ANH3MEDSUR 04-28 14:01
PROVIDERS: Family Medicine; Nurse Practitioner; Admitting Provider Family Medicine; Emergency Provider Emergency Medicine; PCP Family Medicine; Visit Provider Family Medicine
DX: A41.9 Sepsis, unspecified organism (principal); J18.9 Pneumonia, unspecified organism; E87.6 Hypokalemia; Z03.818 Encounter for observation for suspected exposure to other biological agents ruled out; J44.9 Chronic obstructive pulmonary disease, unspecified; E11.9 Type 2 diabetes mellitus without complications; I10 Essential (primary) hypertension; F41.8 Other specified anxiety disorders; F17.210 Nicotine dependence, cigarettes, uncomplicated
CPT/HCPCS: 36415; 71045; 71275; 80048; 80053; 82010; 82948; 83036; 83605; 83735; 85025; 85380; 85610; 86140; 87040; 87070; 87077; 87081; 87186; 87205; 87635; 87804; 87880; 93005; 94640; 96361; 96365; 96367; 96368; 96375; 99285; A9270; C9803; J0131; J0456; J0696; J1815; J1885; J2930; J3475; J3480; J7030; Q9967; U0003

== ENCOUNTER 2020-05-05 20:08 | Emergency (ER) | payer OTHER, SELFPAY ==
[2020-05-05 20:11] VITALS: BP 100/67; PULSE 114; RESP 18; TEMP 36.6; O2SAT 98
--- NOTE | 2020-05-05 20:16 | ED.UPPEXIN ---
HPI - Extremity Injury (Upper) General Chief Complaint: Extremity Injury, Upper Stated Complaint: hand injury Time Seen by Provider: 05/05/20 20:16 History of Present Illness HPI narrative: Playing with his dog and fell backwards through a glass table. Sustained laceration to the base of left little finger. Also resulted in pain in his lower back. He has chronic pain, but this is worse. Tetanus shot 4 years ago. Related Data Home Medications Medication Instructions Recorded Confirmed Basaglar KwikPen U-100 Insulin 80 unit SUBCUT DAILY 04/27/20 04/27/20 amlodipine 10 mg PO DAILY 04/27/20 04/27/20 gabapentin 600 mg PO BID 04/27/20 04/27/20 losartan-hydrochlorothiazide 1 tablet PO DAILY 04/27/20 04/27/20 metoprolol tartrate 100 mg PO BID 04/27/20 04/27/20 sertraline 150 mg PO DAILY 04/27/20 04/27/20 zolpidem 10 mg PO HS 04/27/20 04/27/20 Allergies Allergy/AdvReac Type Severity Reaction Status Date / Time No Known Allergies Allergy Verified 04/27/20 15:58 Review of Systems Review of Systems: All systems reviewed & are unremarkable except as noted in HPI and below Constitutional: Constitutional: Denies fever(s) Cardiovascular: Cardiovascular: Denies chest pain Respiratory: Respiratory: Denies dyspnea Musculoskeletal: Musculoskeletal: Reports back pain Neurologic: Denies numbness and Denies weakness PMFSH Past Medical History Medical History COPD (chronic obstructive pulmonary disease) Depression with anxiety DM2 (diabetes mellitus, type 2) History of COPD History of diabetes mellitus History of hypertension HTN (hypertension) with goal to be determined Kidney stones Neuropathy Surgical History Surgical History H/O tooth extraction History of cardiac catheterization 2013, no coronary artery disease History of lithotripsy Family History Family History Mother Cerebrovascular accident Hypertension Depression Father Diabetes mellitus Heart disease Cancer Grandparent Heart disease COPD (chronic obstructive pulmonary disease) Kidney disease Social History Social History Social History: The patient is and lives with his . He has 3 children. 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 He is a full code. And his is the power of employee benefits attorney. Patient is down to smoking 1 pack a cigarettes a day he said he used to smoke 2 and 3 packs of cigarettes a day. He denies any alcohol marijuana or drug use. Smoking packs per day: 1 Smoking cigarettes per day: 20.0 Years smoked: 27 Smoking pack-years: 27.00 Smoking status: Current every day smoker Tobacco type: cigarettes Second hand tobacco smoke exposure: Yes Alcohol intake: former Substance use: never Gender identity (if verbalized by the patient): Male Spiritual care concerns: No Exam Const: General: no acute distress and alert Nutritional Appearance: obese Orientation/consciousness: patient oriented x3 HENMT: Head: normal to inspection Resp: Effort & Inspection: normal respiratory effort Auscultation: clear to auscultation bilaterally Cardio: Rate: regular rate Rhythm: regular rhythm Back/Spine/Pelvis: Other: lower thoracic/upper lumbar paraspinal tenderness Skin: General skin exam: normal color Other: 3 cm flap laceration on the dorsum of the hand over the 5th MCP joint. Neuro: General: patient oriented x3 and moves all extremities Speech: normal speech Course Vital Signs Vital signs: Vital Signs Temperature 36.6 C 05/05/20 20:11 Pulse Rate 114 H 05/05/20 20:11 Respiratory Rate 18 05/05/20 20:11 Blood Pressure 100/67 05/05/20 20:11 Pulse Oximetry 98 05/05/20 20:11 Temperature 36.6 C 05/05/20 20:11 Pulse Rate 114 H 05/05/20 20:11 Respiratory Rate
[2020-05-05] MEDS: KETOROLAC (*BKC) 60 MG/2 ML VIAL IM (20:35)
--- NOTE | 2020-05-30 11:38 | PC.NURSE ---
LATE ENTRY This note is being entered to document information to the patient's record. The following information was omitted on [05/05/20], by [magan ordonez]. pt noted to have wound to left fifth finger, wound assessment incorrect Magan.
--- NOTE | 2020-06-14 08:03 | PC.NURSE ---
LATE ENTRY This note is being entered to document information to the patient's record. The following information was omitted on [05/05/20], by [KAREN Sharpe]. ORIGINAL WOUND DOCUMENTATION WS INCORRECT WOUND WAS TO LEFT INDEX FINGER KAREN
== END 2020-05-05 21:08 | disposition home or self-care (01) ==
PROVIDERS: Emergency Provider Emergency Medicine; PCP Family Medicine
DX: S61.211A Laceration without foreign body of left index finger without damage to nail, initial encounter (principal); M54.5 Low back pain; J44.9 Chronic obstructive pulmonary disease, unspecified; F41.8 Other specified anxiety disorders; I10 Essential (primary) hypertension; Z87.442 Personal history of urinary calculi; E11.40 Type 2 diabetes mellitus with diabetic neuropathy, unspecified; F17.210 Nicotine dependence, cigarettes, uncomplicated; W25.XXXA Contact with sharp glass, initial encounter
CPT/HCPCS: 12002; 96372; 99283; A9270; J1885

== ENCOUNTER 2020-05-19 19:06 | Emergency (ER) | payer OTHER, SELFPAY ==
--- NOTE | 2020-05-19 19:10 | ED.BACK ---
HPI - Back Pain/Injury General Chief Complaint: Back Pain/Injury Stated Complaint: back pain Time Seen by Provider: 05/19/20 19:19 Source: patient and RN notes reviewed Mode of arrival: ambulatory Limitations: no limitations History of Present Illness HPI Narrative: 39-year-old male with history of diabetes, hypertension presents with low back pain that radiates to the right leg. Reports he was playing football yesterday when he was tackled, landing on his right side. He denies any direct trauma or blows to the back. Reports when he woke up today he had low back pain on the right. Denies loss of bowel or bladder function, denies perianal anesthesia, denies abdominal pain, nausea, vomiting, weakness in any extremity, fever. Reports history of degenerative disc disease. MD elicited complaint: back pain Related Data Home Medications Medication Instructions Recorded Confirmed Basaglar KwikPen U-100 Insulin 80 unit SUBCUT DAILY 04/27/20 05/19/20 gabapentin 600 mg PO BID 04/27/20 05/19/20 metoprolol tartrate 100 mg PO BID 04/27/20 05/19/20 glyburide 2.5 mg PO DAILY 05/19/20 05/19/20 naproxen [Naprosyn] 500 mg PO BID 05/19/20 05/19/20 Allergies Allergy/AdvReac Type Severity Reaction Status Date / Time No Known Allergies Allergy Verified 04/27/20 15:58 Review of Systems Review of Systems: Narrative: CONSTITUTIONAL: Denies malaise, chills, sweats, or fever. CARDIOVASCULAR: Denies chest pain, palpitations, or edema. RESPIRATORY: Denies cough or dyspnea. GASTROINTESTINAL: Denies abdominal pain, nausea, vomiting, diarrhea GENITOURINARY: Denies dysuria or hematuria. SKIN: Denies bruising, redness MUSCULOSKELETAL: Reports right low back pain radiating to the right leg NEUROLOGIC: Denies numbness, weakness, or headache. All systems reviewed & are unremarkable except as noted in HPI and below PMFSH Social History Social History Social History: The patient is and lives with his . He has 3 children. 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 He is a full code. And his is the power of tax associate attorney. Patient is down to smoking 1 pack a cigarettes a day he said he used to smoke 2 and 3 packs of cigarettes a day. He denies any alcohol marijuana or drug use. Smoking packs per day: 1 Smoking cigarettes per day: 20.0 Years smoked: 27 Smoking pack-years: 27.00 Smoking status: Current every day smoker Tobacco type: cigarettes Second hand tobacco smoke exposure: Yes Alcohol intake: former Substance use: never Gender identity (if verbalized by the patient): Male Spiritual care concerns: No Comments At time of signature, agree with nursing past medical, surgical, social and family history. There is no relevant family history pertinent to the presenting complaint Exam Narrative: Exam Narrative: GENERAL: Well-appearing, well-nourished, and in no acute distress. HEAD: Normocephalic, atraumatic. EYES: PERRLA and EOMI. NECK: Supple. No lymphadenopathy. CHEST: Clear to auscultation. No respiratory distress. HEART: Regular rate and rhythm. Distal pulses palpable and equal, cap refill <3 seconds ABDOMEN: Soft, nontender, nondistended, normal active bowel sounds, no palpable or pulsatile masses. No CVA tenderness MUSCULOSKELETAL: Normal range of motion and strength in all extremities; 5/5 strength with hip flexion and extension, dorsiflexion and extension, knee flexion and extension, plantar flexion and extension. Normal sensation in dermatomal distributions with sensitivity to light touch and pain. No midline back tenderness to palpation. No paraspinal tenderness. Transfers from lying to sitting to standing. SKIN: Warm, dry, no rash. No ecchymosis, erythema, open wounds to back. NEURO: No focal deficits. Alert and oriented x3. Reflexes intact. Normal gait. PSYCH: Normal mood and affect Course Course Emergency Course: Patient is aware of diagnosis, understands a
[2020-05-19 19:17] VITALS: BP 143/83; PULSE 111; RESP 16; TEMP 37.2; O2SAT 100
== END 2020-05-19 19:35 | disposition home or self-care (01) ==
PROVIDERS: Emergency Provider Nurse Practitioner; PCP Family Medicine
DX: M54.5 Low back pain (principal); F17.210 Nicotine dependence, cigarettes, uncomplicated; E78.00 Pure hypercholesterolemia, unspecified; I10 Essential (primary) hypertension; J44.9 Chronic obstructive pulmonary disease, unspecified; E11.40 Type 2 diabetes mellitus with diabetic neuropathy, unspecified; Z79.4 Long term (current) use of insulin
CPT/HCPCS: 99213; G0463

== ENCOUNTER 2021-10-05 01:29 | Emergency (ER) | payer OTHER, SELFPAY ==
[2021-10-05 01:32] VITALS: BP 152/91; PULSE 98; RESP 20; TEMP 36.4; O2SAT 97
[2021-10-05] MEDS: diazePAM (*CRX) 5 MG TABLET PO (01:52)
[2021-10-05] MEDS: KETOROLAC (*BKC) 60 MG/2 ML VIAL IM (01:53)
--- NOTE | 2021-10-05 01:57 | ED.BACK ---
HPI - Back Pain/Injury General Chief Complaint: Back Pain/Injury Stated Complaint: Back pain Time Seen by Provider: 10/05/21 01:43 Source: patient and RN notes reviewed Mode of arrival: wheelchair Limitations: no limitations History of Present Illness HPI Narrative: This is a 40 year old male with history of chronic back pain who presents for lower back after lifting his mother just prior to arrival. Patient was lifting his mother to put her in the car with he had severe lower back pain. His pain will radiate to his right buttock. He states he went after pain started but he did not taken anything for pain. He was having difficulty get off toilet due to pain so he came to ER. He denies fever, nausea, vomiting, limb weakness or numbness. He has not urinary symptoms. Related Data Home Medications Medication Instructions Recorded Confirmed Basaglar AllieikPen U-100 Insulin 80 unit SUBCUT DAILY 04/27/20 05/19/20 gabapentin 600 mg PO BID 04/27/20 05/19/20 metoprolol tartrate 100 mg PO BID 04/27/20 05/19/20 glyburide 2.5 mg PO DAILY 05/19/20 05/19/20 naproxen [Naprosyn] 500 mg PO BID 05/19/20 05/19/20 Allergies Allergy/AdvReac Type Severity Reaction Status Date / Time tramadol AdvReac Hallucinati Verified 10/05/21 01:36 ng Review of Systems Review of Systems: All systems reviewed & are unremarkable except as noted in HPI and below PMFSH Past Medical History Medical History (Updated 10/05/21 @ 03:37 by Faby James MD) COPD (chronic obstructive pulmonary disease) Depression with anxiety DM2 (diabetes mellitus, type 2) History of COPD History of diabetes mellitus History of hypertension HTN (hypertension) with goal to be determined Kidney stones Neuropathy Surgical History Surgical History H/O tooth extraction History of cardiac catheterization 2013, no coronary artery disease History of lithotripsy Family History Family History (System 08/29/21 @ 15:25 by Harper Zeng) Mother Cerebrovascular accident Hypertension Depression Father Diabetes mellitus Heart disease Cancer Grandparent Heart disease COPD (chronic obstructive pulmonary disease) Kidney disease Social History Social History (System 08/29/21 @ 15:25 by Harper See Social History: The patient is and lives with his . He has 3 children. 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 He is a full code. And his is the power of personal injury attorney. Patient is down to smoking 1 pack a cigarettes a day he said he used to smoke 2 and 3 packs of cigarettes a day. He denies any alcohol marijuana or drug use. Smoking packs per day: 1 Smoking cigarettes per day: 20.0 Years smoked: 27 Smoking pack-years: 27.00 Smoking status: Current every day smoker Tobacco type: cigarettes Second hand tobacco smoke exposure: Yes Alcohol intake: former Substance use: never Gender identity (if verbalized by the patient): Male Spiritual care concerns: No Exam Const: General: no acute distress and alert Nutritional Appearance: obese Orientation/consciousness: patient oriented x3 Eyes: EOM: EOMs intact bilaterally Resp: Effort & Inspection: normal respiratory effort and no retractions Auscultation: clear to auscultation bilaterally Cardio: Rate: regular rate Rhythm: regular rhythm Heart sounds: no murmurs GI: GI Palp: Yes Soft to palpation, No Tenderness to palpation present (GI) and No Guarding due to palpation present (GI) Auscultation: normal bowel sounds Back/Spine/Pelvis: Back: no CVA tenderness Thoracic/Lumbar Spine: paraspinal muscle tenderness Skin: General skin exam: normal color Rashes: no rashes Neuro: General: patient oriented x3, moves all extremities and CN's II-XI intact bilaterally Course Reevaluation(s) Reevaluation #1: Patient is appears comfortable and in acute distress. He states he is still having alot of malgorzata
[2021-10-05] MEDS: ONDANSETRON HCL ODT 4 MG TABLET PO (03:40)
[2021-10-05] MEDS: oxyCODONE/ACETAMINOPHEN (*CRX) 5-325 MG TABLET 1 TABLET PO (03:40)
[2021-10-05 03:43] VITALS: BP 137/67; PULSE 79; RESP 20; TEMP 36.7; O2SAT 100
[2021-10-05 04:03] VITALS: BP 123/69; PULSE 68; RESP 16
== END 2021-10-05 04:04 | disposition home or self-care (01) ==
PROVIDERS: Emergency Provider General Practice; PCP Family Medicine
DX: M54.50 Low back pain, unspecified (principal); G89.29 Other chronic pain; J44.9 Chronic obstructive pulmonary disease, unspecified; E11.40 Type 2 diabetes mellitus with diabetic neuropathy, unspecified; I10 Essential (primary) hypertension; Z87.442 Personal history of urinary calculi; Z79.4 Long term (current) use of insulin; Z79.01 Long term (current) use of anticoagulants
CPT/HCPCS: 96372; 99283; A9270; J1885

== ENCOUNTER 2023-01-08 12:24 | Observation (INO) | payer OTHER, SELFPAY ==
[2023-01-08] VITALS (32 sets, daily range): BP systolic 152–166; BP diastolic 85–105; PULSE 79–113; RESP 12–25; TEMP 36.5–36.6; O2SAT 93–100; BMI 29.6
--- NOTE | ~2023-01-08 | XR_ITS ---
Right foot Technique: AP, oblique, and lateral views were obtained. Clinical History: Puncture wound Findings: No acute fracture or dislocation is seen. Osseous alignment is anatomic. Joint spaces are p reserved without erosive or degenerative change. Soft tissues are unremarkable. Impression: Unremarkable right foot radiographs. Reviewed, dictated and finalized at [facility]. RAM THERAPIST Impression: Unremarkable right foot radiographs.
--- NOTE | ~2023-01-08 | US_ITS ---
EXAMINATION: US venous doppler [facility] DATE: 01/10/2023 12:43 INDICATION: Lower limb pain. TECHNIQUE: Grayscale ultrasound images without and with compression and Doppler ultrasound images of the bilateral lower extremity veins were obtained. COMPARISON: None. FINDINGS: The visualized portions of right common femoral vein, profunda (deep) femoral vein, femoral vein, pop liteal vein, peroneal veins, posterior tibial veins, and greater saphenous vein outflow are patent. The visualized portions of left common femoral vein, profunda femoral vein, femoral vein, popliteal v ein, peroneal veins, posterior tibial veins, and greater saphenous vein outflow are patent. IMPRESSION: 1. No deep venous thrombosis. Reviewed, dictated and finalized at location A. AKER
--- NOTE | ~2023-01-08 | US_ITS ---
EXAMINATION: US abdomen limited DATE: 01/08/2023 20:37 INDICATION: Cystic lesion above the umbilicus TECHNIQUE: Multiple grayscale and Doppler ultrasound images of the abdomen were obtained in the area of clinical concern. COMPARISON: None available FINDINGS: There is a mixed echogenicity mass in the area of clinical concern which appears to reflect a short segment of herniated bowel. No additional mass is identified. IMPRESSION: 1. Probable small ventral hernia containing bowel in the area of clinical concern. Reviewed, dictated and finalized at location F. IMPRESSION: 1. Probable small ventral hernia containing bowel in the area of clinical chris rn.
--- NOTE | 2023-01-08 13:20 | PC.NURSE ---
Dr. Oneill lat bedside to assess pt.
[2023-01-08 13:22] LABS: Glucose Point of Care 401 mg/dl (65-105)
--- NOTE | 2023-01-08 13:28 | ED.GENADULT ---
HPI - General Adult General Chief complaint: Unspecified Stated complaint: infection on right foot and belly button Time Seen by Provider: 01/08/23 13:13 History of Present Illness HPI narrative: 42-year-old male presented to the emergency department for evaluation of a possible infection to his right foot. Patient states he did step on a nail about a week ago. Patient also has a wound to his great toe where he cut off a callus and cut it too close to the skin. Patient states he has been running fevers at home. Patient also felt that he was having some discharge from his bellybutton but that the discharge has since resolved. Patient states he does not have follow-up with podiatry. Related Data Home Medications Medication Instructions Recorded Confirmed gabapentin 300 mg capsule 400 mg PO BID 04/27/20 01/08/23 insulin glargine 100 unit/mL (3 100 unit subcut DAILY 04/27/20 01/08/23 mL) subcutaneous pen (Driver Hireaglar KwikPen U-100 Insulin) metoprolol tartrate 100 mg tablet 100 mg PO BID 04/27/20 01/08/23 glyburide 2.5 mg tablet 2 mg PO DAILY 05/19/20 01/08/23 naproxen 500 mg tablet (Naprosyn) 500 mg PO BID 05/19/20 01/08/23 Allergies Allergy/AdvReac Type Severity Reaction Status Date / Time tramadol AdvReac Hallucinati Verified 01/08/23 17:15 ng Review of Systems Review of Systems: CONSTITUTIONAL: Denies fever, chills, or sweats. EYES: Denies visual changes, redness, or discharge. ENT: Denies rhinorrhea, congestion, sore throat, or otalgia. CARDIOVASCULAR: Denies chest pain, palpitations, or edema. RESPIRATORY: Denies cough or dyspnea. GASTROINTESTINAL: Denies abdominal pain, nausea, vomiting, or diarrhea. GENITOURINARY: Denies dysuria or hematuria. SKIN: See HPI. MUSCULOSKELETAL: Denies back pain, joint pain, or myalgia. NEUROLOGIC: Denies headache, numbness, or weakness. [facility] Past Medical History Medical History (Updated 01/08/23 @ 19:54 by Bean Oneill MD) COPD (chronic obstructive pulmonary disease) Depression with anxiety Diabetic neuropathy DM2 (diabetes mellitus, type 2) History of COPD History of diabetes mellitus History of hypertension HTN (hypertension) with goal to be determined Kidney stones Neuropathy Surgical History Surgical History H/O tooth extraction History of cardiac catheterization 2013, no coronary artery disease History of lithotripsy Family History Family History Mother Cerebrovascular accident Hypertension Depression Father Diabetes mellitus Heart disease Cancer Grandparent Heart disease COPD (chronic obstructive pulmonary disease) Kidney disease Social History Social History (Updated 01/08/23 @ 19:23 by Ashly Salas NP) Social History: The patient is and lives with his . He has 3 children. 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 And his is the power of corporate attorney. Patient is down to smoking 1 pack a cigarettes a day he said he used to smoke 2 and 3 packs of cigarettes a day. He denies any alcohol. uses marijuana code status full code Smoking packs per day: 1 Smoking cigarettes per day: 20.0 Years smoked: 29 Smoking pack-years: 29.00 Smoking status: Current every day smoker Tobacco type: cigarettes Second hand tobacco smoke exposure: Yes Alcohol intake: never Substance use: current Substance use type: marijuana Last use: 01/06/23 Lack of Transportation: YES Lack of Food: Never True Current Housing: I Have Housing Concerned About Future Housing: No Difficulty Paying Gas/Electric Bills: No Difficulty Paying for Meds: No Currently Unemployed: No Education: High School Diploma/GED Difficulty w/ Childcare or Family Care: No Gender identity (if verbalized by the patient): Male Spiritual care concerns: No Exam Narrative: APPEARANCE: Well appearing, no pain, no d
[2023-01-08 13:29] LABS: Basophils Percent Auto 0.4 % (0.2-1.2); Eosinophils Percent Auto 0.1 % (0-4.4); Hematocrit 51.2 % (42.0-52.0); Hemoglobin 17.7 g/dL (14.0-18.0); Immature Granulocyte Absolute 0.04 K/mm3 (0.00-0.031); Immature Granulocyte Percent A 0.4 % (0-0.5); Lymphocytes Absolute Auto 0.73 K/mm3 (0.9-3.2); Lymphocytes Percent Auto 7.3 % (18.3-44.2); Mean Corpuscular HGB Conc 34.6 g/dl (32-36); Mean Corpuscular Hemoglobin 30.1 pg (26-34); Mean Corpuscular Volume 86.9 fl (80-100); Mean Platelet Volume 11.3 fl (7.4-10.4); Monocytes Absolute Auto 0.8 K/mm3 (0.1-0.6); Monocytes Percent Auto 7.5 % (2.6-8.5); Neutrophils Absolute Auto 8.5 K/mm3 (1.3-6.7); Neutrophils Percent Auto 84.3 % (45.5-73.1); Platelet Count Result 170 k/mm3 (150-375); Red Blood Count 5.89 M/mm3 (4.6-6.20); Red Cell Distribution Width 13.2 % (11.5-14.5)
[2023-01-08 13:46] LABS: Alanine Aminotransferase 25 U/L (6-50); Albumin Level 4.2 g/dL (3.5-5.1); Alkaline Phosphatase 168 U/L (38-126); Anion Gap 16 mmol/L (8-16); Aspartate Amino Transferase 38 U/L (17-59); Bilirubin,Total 0.8 mg/dL (0.2-1.3); Blood Urea Nitrogen 14 mg/dL (9-20); Calcium 8.7 mg/dL (8.4-10.2); Carbon Dioxide 21 mmol/L (22-30); Chloride 95 mmol/L (98-107); Estimated CRCL calculation 153 ml/min; Estimated Glomerular Filt Rate > 60; Glucose 455 mg/dL (65-110); Magnesium 1.7 mg/dL (1.6-2.3); Potassium 2.8 mmol/L (3.4-5.0); Sodium 132 mmol/L (137-145)
[2023-01-08] MEDS: SODIUM CHLORIDE 0.9% IV 1,000 ML 999 ML IV CONT (13:51)
[2023-01-08] MEDS: fentaNYL CITRATE INJ (*CRX) 100 MCG/2 ML VIAL 50 MCG IV PUSH (14:14)
[2023-01-08] MEDS: POTASSIUM CHLORIDE 20 MEQ PACKET (FOR LIQUID) 40 MEQ PO ×2 (14:14→20:17)
[2023-01-08 14:25] LABS: Influenza A QL RT-PCR Negative (Negative); Influenza B QL RT-PCR Negative (Negative); RSV RNA, RT-PCR Negative (Negative); SARS-CoV-2 RNA PCR Negative
[2023-01-08 14:26] LABS: Beta-Hydroxybutyrate/Acetoacetate 2.62 mmol/L (0.02-0.27)
[2023-01-08 14:53] LABS: Appearance Urine Clear (Clear); Bacteria Urine None Seen /hpf; Bilirubin Urine Negative (Negative); Blood Urine 2+ (Negative); Color Urine Yellow (Yellow); Glucose Urine UA 3+ mg/dL (Negative); Ketones Urine 3+ mg/dL (Negative); Leukocyte Esterase Ur Negative LEU/UL (Negative); Need Manual Microscopic Reviewed; Nitrate Urine Negative (Negative); Non Pathogenic Casts 0-2; Protein Urine 2+ mg/dL (Negative); Specific Grav Ur 1.035 (1.001-1.035); Squamous Epithelial Cell Urine None seen /hpf (Few); WBC Urine 0-5 /hpf; pH Urine 6.5 (5.0-9.0)
[2023-01-08 14:56] LABS: Add Urine Microscopic? YES
[2023-01-08] MEDS: KCL 20 MEQ/SW 100 ML 100 ML 50 MEQ IVPB (15:01)
--- NOTE | 2023-01-08 16:56 | PM.IMHP ---
H&P: HPI History of Present Illness Date/Time: 01/08/23 16:56 Chief Complaint: Infection of right foot and belly button. Narrative: This is a 42-year-old diabetic patient who Is not very well controlled. The patient stated that he came in for possible infection to his right foot. The patient stated that he stepped on a nail about a week ago and he is up-to-date on his tetanus shot. The patient has an abraded area to his right midfoot and then he tried to take a callus off of his right great toe. His carotid to close to the skin. He stated that he has a tactile fever. The patient also stated he is having some green discharge from his belly button. It has since resolved. 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 Sodium was 132 now 129 potassium was 2.8 now 3.2. His blood sugars are in the 400s. The patient is also hypertensive with blood pressure 161/105 X-ray of the right foot was read as unremarkable right foot radiographs. the patient was negative for influenza A/B RSV and COVID. The patient was given IV fluids, fentanyl, p.o. potassium, IV potassium, cefepime, Flagyl, vancomycin and a nicotine patch in the emergency room. The patient is being admitted to observation status on the date of service of 01/08/2023. Review of Systems Review of Systems: See HPI All systems reviewed & are unremarkable except as noted in HPI and below Constitutional: Constitutional: Reports as per HPI and Reports no additional constitutional complaints Eyes: Eyes: Reports as per HPI and Reports no additional eye complaints ENT: Reports system reviewed and no additional complaints, except as documented and Reports Normal hearing present Cardiovascular: Cardiovascular: Reports no additional cardiovascular complaints Respiratory: Respiratory: Reports no additional respiratory complaints and Reports no additional respiratory complaints Gastrointestinal: Gastrointestinal: Reports as per HPI and Reports no additional gastrointestinal complaints Musculoskeletal: Musculoskeletal: Reports no additional musculoskeletal complaints Integumentary/Breasts: Skin/Breast: Reports system reviewed and no additional complaints, except as docu and Reports as per HPI Neurologic: Reports system reviewed and no additional complaints, except as documented, Reports as per HPI and Reports Normal hearing present Psychiatric: Psychiatric: Reports no additional psychiatric complaints and Reports as per HPI Endocrine: Endocrine: Reports no additional endocrine complaints Hematologic/Lymphatic: Hematologic/Lymphatic: Reports no additional hematologic/lymphatic complaints Allergic/Immunologic: Allergic/Immunologic: Reports no additional allergic/immunologic complaints PMFSH Past Medical History Medical History (Updated 01/08/23 @ 19:48 by Ashly Salas NP) COPD (chronic obstructive pulmonary disease) Depression with anxiety Diabetic neuropathy DM2 (diabetes mellitus, type 2) History of COPD History of diabetes mellitus History of hypertension HTN (hypertension) with goal to be determined Kidney stones Neuropathy Surgical History Surgical History H/O tooth extraction History of cardiac catheterization 2013, no coronary artery disease History of lithotripsy Family History Family History Mother Cerebrovascular accident Hypertension Depression Father Diabetes mellitus Heart disease Cancer Grandparent Heart disease COPD (chronic obstructive pulmonary disease) Kidney disease Social History Social History (Updated 01/08/23 @ 19:23 by Ashly Salas NP) Social History: The patient is and lives with his . He has 3 children. 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 Patient is down to smoking 1 pack a cigarettes a day he said he used to smoke 2 and 3 packs of cigarett
--- NOTE | 2023-01-08 17:06 | PC.NURSE ---
Hospitalist COMMIS CHEF at bedside to assess pt.
[2023-01-08 17:52] LABS: Glucose Point of Care 400 mg/dl (65-105)
[2023-01-08] MEDS: NICOTINE (*PBKC) 21 MG PATCH 1 PATCH TRANSDERM (18:40)
[2023-01-08] MEDS: SODIUM CHLORIDE 0.9% IV 1,000 ML 125 ML IV CONT (18:48)
[2023-01-08 18:57] LABS: Anion Gap 9 mmol/L (8-16); Blood Urea Nitrogen 12 mg/dL (9-20); Calcium 8.3 mg/dL (8.4-10.2); Carbon Dioxide 25 mmol/L (22-30); Chloride 95 mmol/L (98-107); Estimated CRCL calculation 154 ml/min; Estimated Glomerular Filt Rate > 60; Glucose 362 mg/dL (65-110); Potassium 3.2 mmol/L (3.4-5.0); Sodium 129 mmol/L (137-145)
[2023-01-08 20:03] LABS: Glucose Point of Care 343 mg/dl (65-105)
[2023-01-08] MEDS: metroNIDAZOLE 500 MG/ISO 100ML 500 MG/100 ML BAG 100 MG IVPB (20:05)
[2023-01-08] MEDS: CEFEPIME 2 GM/NS 50 ML 2 GM/50 ML BAG IVPB (20:06)
[2023-01-08] MEDS: HYDROcodone/acetaminophen (*CRX) 7.5-325 MG TABLET 1 TAB PO (20:14)
[2023-01-08] MEDS: METOPROLOL TARTRATE 50 MG TAB 100 MG PO (20:18)
[2023-01-08] MEDS: MAGNESIUM SULF 2 GM/WATER 50ML 2 GM/50 ML BAG IVPB (20:38)
[2023-01-08 22:59] LABS: Anion Gap 9 mmol/L (8-16); Blood Urea Nitrogen 11 mg/dL (9-20); Calcium 7.9 mg/dL (8.4-10.2); Carbon Dioxide 23 mmol/L (22-30); Chloride 97 mmol/L (98-107); Estimated CRCL calculation 154 ml/min; Estimated Glomerular Filt Rate > 60; Glucose 316 mg/dL (65-110); Potassium 3.3 mmol/L (3.4-5.0); Sodium 129 mmol/L (137-145)
[2023-01-09] VITALS (18 sets, daily range): BP systolic 135–155; BP diastolic 77–95; PULSE 64–93; RESP 14–20; TEMP 35.6–36.6; O2SAT 96–100; BMI 29.6
[2023-01-09] MEDS: SODIUM CHLORIDE 0.9% IV 1,000 ML 125 ML IV CONT ×2 (00:06→05:51)
[2023-01-09] MEDS: POTASSIUM CHLORIDE 20 MEQ PACKET (FOR LIQUID) 40 MEQ PO (00:07)
[2023-01-09] MEDS: HYDROcodone/acetaminophen (*CRX) 7.5-325 MG TABLET 1 TAB PO ×4 (01:56→21:11)
[2023-01-09 04:41] LABS: Basophils Absolute Auto 0.1 K/mm3 (0.0-0.1); Basophils Percent Auto 0.7 % (0.2-1.2); Eosinophils Absolute Auto 0.1 K/mm3 (0-0.3); Eosinophils Percent Auto 0.8 % (0-4.4); Hematocrit 44.3 % (42.0-52.0); Hemoglobin 15.3 g/dL (14.0-18.0); Immature Granulocyte Absolute 0.04 K/mm3 (0.00-0.031); Immature Granulocyte Percent A 0.4 % (0-0.5); Lymphocytes Absolute Auto 1.33 K/mm3 (0.9-3.2); Lymphocytes Percent Auto 12.7 % (18.3-44.2); Mean Corpuscular HGB Conc 34.5 g/dl (32-36); Mean Corpuscular Hemoglobin 29.7 pg (26-34); Mean Platelet Volume 11.9 fl (7.4-10.4); Monocytes Absolute Auto 1.1 K/mm3 (0.1-0.6); Monocytes Percent Auto 10.1 % (2.6-8.5); Neutrophils Absolute Auto 7.9 K/mm3 (1.3-6.7); Neutrophils Percent Auto 75.3 % (45.5-73.1); Platelet Count Result 149 k/mm3 (150-375); Red Blood Count 5.15 M/mm3 (4.6-6.20); Red Cell Distribution Width 13.1 % (11.5-14.5); White Blood Count 10.5 K/mm3 (4.5-10.0)
[2023-01-09 04:54] LABS: Alanine Aminotransferase 24 U/L (6-50); Albumin Level 3.8 g/dL (3.5-5.1); Alkaline Phosphatase 147 U/L (38-126); Anion Gap 8 mmol/L (8-16); Aspartate Amino Transferase 34 U/L (17-59); Bilirubin,Total 0.6 mg/dL (0.2-1.3); Blood Urea Nitrogen 10 mg/dL (9-20); Calcium 7.9 mg/dL (8.4-10.2); Carbon Dioxide 21 mmol/L (22-30); Chloride 98 mmol/L (98-107); Estimated CRCL calculation 154 ml/min; Estimated Glomerular Filt Rate > 60; Glucose 276 mg/dL (65-110); Magnesium 1.9 mg/dL (1.6-2.3); Phosphorus 2.2 mg/dL (2.5-4.5); Potassium 3.4 mmol/L (3.4-5.0); Sodium 127 mmol/L (137-145)
[2023-01-09] MEDS: metroNIDAZOLE 500 MG/ISO 100ML 500 MG/100 ML BAG 100 MG IVPB ×3 (05:50→21:10)
[2023-01-09 08:03] LABS: Glucose Point of Care 267 mg/dl (65-105)
[2023-01-09] MEDS: POTASSIUM CHLORIDE 20 MEQ PACKET (FOR LIQUID) PO ×2 (09:17→17:49)
[2023-01-09] MEDS: NICOTINE (*PBKC) 21 MG PATCH 1 PATCH TRANSDERM (09:18)
[2023-01-09] MEDS: METOPROLOL TARTRATE 50 MG TAB 100 MG PO ×2 (09:18→20:33)
[2023-01-09] MEDS: INSULIN GLARGINE (*BKC) 100 UNITS/ML 50 UNITS SUB-Q (09:18)
[2023-01-09] MEDS: ENOXAPARIN 40 MG/0.4 ML SYRINGE SUB-Q (09:19)
[2023-01-09] MEDS: INSULIN ASPART (*BKC) 100 UNITS/ML SUB-Q ×3 (09:22→17:49)
[2023-01-09] MEDS: CEFEPIME 2 GM/NS 50 ML 2 GM/50 ML BAG IVPB ×2 (09:28→20:35)
--- NOTE | 2023-01-09 09:52 | ECG_ITS ---
Measurements Intervals [place] Rate: P: CT: QRS: QRSD: T: QT: QTc: Interpretive Statements SINUS RHYTHM DELAYED PRECORDIAL R/S TRANSITION BASELINE ARTIFACT- V4-V5 BORDERLINE ECG Electronically Signed On 01-15-2023 13:07:11 VISITOR SERVICES INFORMATION ASSISTANT by Juan Jose Villegas D.O.
[2023-01-09] MEDS: SILVERGEL (ELTA) 45 ML 1 APPLIC TOPICAL (10:50)
[2023-01-09 11:33] LABS: Glucose Point of Care 302 mg/dl (65-105)
[2023-01-09] MEDS: GABAPENTIN 400 MG CAPSULE PO ×2 (11:43→17:49)
--- NOTE | 2023-01-09 11:45 | PM.IMPN ---
Progress Note: A&P Assessment and Plan (1) Diabetic foot ulcer: Code(s): E11.621 - Type 2 diabetes mellitus with foot ulcer; L97.509 - Non-pressure chronic ulcer of other part of unspecified foot with unspecified severity Status: Acute Assessment and Plan: The foot and toe areas are ulcerated however it does not particularly look infected. He was having subjected fevers and chills. WBC essential normal and no fevers here. The patient was placed on vancomycin, Flagyl and Cefepime at per diabetic foot ulcer abx stewardship. BCx pending. MRSA nasal swab pending. Wound care consult was placed. (2) DKA (diabetic ketoacidosis): Code(s): E11.10 - Type 2 diabetes mellitus with ketoacidosis without coma Status: Acute Assessment and Plan: Probably with mild DKA related to his infection present on admission. Noted with AG 16, BHO2.6 and serum bicarb 21. he was also having n/v and glucose of 455. Symptoms better. On IV fluids. Resume lantus at lower dose. Monitor for now. Will let IV fluids run out. (3) DM2 (diabetes mellitus, type 2): Code(s): E11.9 - Type 2 diabetes mellitus without complications Status: Acute Assessment and Plan: The patient's blood glucose was reviewed on 01/09 Glucose remains poorly controlled. Continue AccuCheks covering with sliding scale. Hypoglycemia protocol available as needed. Check A1c. Resume lantus life skills educator and Dietitian consulted (4) Hypokalemia: Code(s): E87.6 - Hypokalemia Status: Acute Assessment and Plan: Potassium 2.8 and this was replaced. Follow (5) HTN (hypertension) with goal to be determined: Code(s): I10 - Essential (primary) hypertension Status: Chronic Assessment and Plan: Patient's blood pressure was reviewed on 3/ Blood pressure remains reasonably well controlled. Will continue current medications. (6) Diabetic neuropathy: Code(s): E11.40 - Type 2 diabetes mellitus with diabetic neuropathy, unspecified Status: Acute Assessment and Plan: Stable. Continue with gabapentin (7) Tobacco use: Code(s): Z72.0 - Tobacco use Status: Acute Assessment and Plan: Patient was educated about benefits of smoking cessation (8) Low sodium levels: Code(s): E87.1 - Hypo-osmolality and hyponatremia Status: Acute Assessment and Plan: Sodium is low as well felt related to the elevated glucose. Follow (9) Low magnesium level: Code(s): R79.0 - Abnormal level of blood mineral Status: Acute Assessment and Plan: Magnesium was borderline at 1.7 so this was replaced as well. Follow Plan Cystic lesion just above his umbilicus with abdominal ultrasound showing ventral hernia. No pain in this area to suggest incarceration. Follow clinically Subjective Date/time seen: 01/09/23 11:45 Interval history: 42yo male with DM here for?infection on right foot and belly button. Had n/v earlier today that he felt was related to the potassium medication. No abd pain. No CP or SOB. Smokes 1ppd still. He has been putting on steroid cream for his foot wounds and dry skin. Exam Narrative: AF 96.2 142/83 72 16 97% ra Gen - NARD Chest - scattered inspiratory rhonchi, nml RR CV - RRR S1/S2. Tele showing no signifincant dysrhythmias Abd - Soft, NT/ND, Positive BS. no drainage noted from periumbilical area Ext - No pedal edema. 2+ DP pulses bilaterally. Neuro - Alert and oriented. Nonfocal exam. Psych - Nml mood and affect Skin - Warm and dry. dried and cracked skin bilateral heels but skin intact. Dried abrasion right medial great toe. small open wound plantar surface without drainage overlying 3rd metatarsal head. Objective Data Vital Signs Vital Signs: Vital Signs - 24 hr 01/08/23 12:42 01/08/23 13:16 01/08/23 13:30 Temperature 97.7 F Pulse Rate 113 H Respiratory Rate 12 Bl
[2023-01-09] MEDS: POTASSIUM/PHOSPHORUS/SODIUM 1.5 GM PACKET 1 PACKET PO (13:09)
[2023-01-09 16:31] LABS: Glucose Point of Care 260 mg/dl (65-105)
[2023-01-09 19:27] LABS: Hemoglobin A1C 10.4 % (<5.7)
[2023-01-09 19:32] LABS: Glucose Point of Care 283 mg/dl (65-105)
[2023-01-10] VITALS (14 sets, daily range): BP systolic 140–155; BP diastolic 88–96; PULSE 66–76; RESP 16–22; TEMP 35.9–37; O2SAT 95–100
[2023-01-10 07:52] LABS: Basophils Absolute Auto 0.1 K/mm3 (0.0-0.1); Basophils Percent Auto 0.6 % (0.2-1.2); Eosinophils Absolute Auto 0.2 K/mm3 (0-0.3); Eosinophils Percent Auto 1.5 % (0-4.4); Hematocrit 45.2 % (42.0-52.0); Hemoglobin 15.5 g/dL (14.0-18.0); Immature Granulocyte Absolute 0.04 K/mm3 (0.00-0.031); Immature Granulocyte Percent A 0.4 % (0-0.5); Lymphocytes Absolute Auto 1.53 K/mm3 (0.9-3.2); Lymphocytes Percent Auto 15.2 % (18.3-44.2); Mean Corpuscular HGB Conc 34.3 g/dl (32-36); Mean Corpuscular Hemoglobin 29.5 pg (26-34); Mean Corpuscular Volume 85.9 fl (80-100); Mean Platelet Volume 12.1 fl (7.4-10.4); Monocytes Percent Auto 9.4 % (2.6-8.5); Neutrophils Absolute Auto 7.3 K/mm3 (1.3-6.7); Neutrophils Percent Auto 72.9 % (45.5-73.1); Platelet Count Result 160 k/mm3 (150-375); Red Blood Count 5.26 M/mm3 (4.6-6.20); Red Cell Distribution Width 13.2 % (11.5-14.5); White Blood Count 10.1 K/mm3 (4.5-10.0)
[2023-01-10 07:54] LABS: Albumin Level 3.9 g/dL (3.5-5.1); Anion Gap 10 mmol/L (8-16); Blood Urea Nitrogen 12 mg/dL (9-20); Calcium 8.6 mg/dL (8.4-10.2); Carbon Dioxide 22 mmol/L (22-30); Chloride 101 mmol/L (98-107); Estimated CRCL calculation 154 ml/min; Estimated Glomerular Filt Rate > 60; Glucose 225 mg/dL (65-110); Phosphorus 3.3 mg/dL (2.5-4.5); Potassium 3.2 mmol/L (3.4-5.0); Sodium 133 mmol/L (137-145)
[2023-01-10 07:58] LABS: Glucose Point of Care 233 mg/dl (65-105)
[2023-01-10] MEDS: metroNIDAZOLE 500 MG/ISO 100ML 500 MG/100 ML BAG 100 MG IVPB ×2 (08:26→14:42)
[2023-01-10] MEDS: INSULIN ASPART (*BKC) 100 UNITS/ML SUB-Q ×2 (08:27→11:44)
[2023-01-10] MEDS: ENOXAPARIN 40 MG/0.4 ML SYRINGE SUB-Q (08:28)
[2023-01-10] MEDS: METOPROLOL TARTRATE 50 MG TAB 100 MG PO (08:29)
[2023-01-10] MEDS: GABAPENTIN 400 MG CAPSULE PO (08:29)
[2023-01-10] MEDS: SILVERGEL (ELTA) 45 ML 1 APPLIC TOPICAL (08:29)
[2023-01-10] MEDS: NICOTINE (*PBKC) 21 MG PATCH 1 PATCH TRANSDERM (08:30)
[2023-01-10 08:33] LABS: Vancomycin Trough 11.8 ug/mL (10.0-20.0)
[2023-01-10] MEDS: POTASSIUM CHLORIDE 20 MEQ TABLET 40 MEQ PO (08:37)
[2023-01-10] MEDS: CEFEPIME 2 GM/NS 50 ML 2 GM/50 ML BAG IVPB (08:37)
[2023-01-10] MEDS: INSULIN GLARGINE (*BKC) 100 UNITS/ML 65 UNITS SUB-Q (08:38)
[2023-01-10] MEDS: HYDROcodone/acetaminophen (*CRX) 7.5-325 MG TABLET 1 TAB PO ×2 (10:00→15:39)
[2023-01-10 11:43] LABS: Glucose Point of Care 269 mg/dl (65-105)
--- NOTE | 2023-01-10 15:20 | PM.DS ---
DS: Admitting Diagnosis Discharge Date 01/10/23 Admitting Diagnosis Right foot infection DS: Discharge Diagnosis Discharge Diagnosis (1) Diabetic foot ulcer: Code(s): E11.621 - Type 2 diabetes mellitus with foot ulcer; L97.509 - Non-pressure chronic ulcer of other part of unspecified foot with unspecified severity Status: Acute (2) DKA (diabetic ketoacidosis): Code(s): E11.10 - Type 2 diabetes mellitus with ketoacidosis without coma Status: Acute (3) DM2 (diabetes mellitus, type 2): Code(s): E11.9 - Type 2 diabetes mellitus without complications Status: Acute (4) Hypokalemia: Code(s): E87.6 - Hypokalemia Status: Acute (5) HTN (hypertension) with goal to be determined: Code(s): I10 - Essential (primary) hypertension Status: Chronic (6) Diabetic neuropathy: Code(s): E11.40 - Type 2 diabetes mellitus with diabetic neuropathy, unspecified Status: Acute (7) Tobacco use: Code(s): Z72.0 - Tobacco use Status: Acute (8) Low sodium levels: Code(s): E87.1 - Hypo-osmolality and hyponatremia Status: Acute (9) Low magnesium level: Code(s): R79.0 - Abnormal level of blood mineral Status: Acute DS: Summary Hospital Course Reason for hospitalization: 42yo male with DM here for?infection on right foot. Please see H&P for details. Hospital Course: The patient presents with right foot pain and found to have a dry eschar to the right great toe and small open wound to the plantar surface above the right 3rd MTP joint. No erythema and scant drainage at the site. He was having subjected fevers and chills. WBC essential normal and no fevers here.? The patient was placed on vancomycin, Flagyl and Cefepime per antibiotic stewardship. BCx no growth. MRSA nasal swab negative. He has a hx of sputum culture positive for pseudomonas. Wound care consult was placed. Foot xray normal. Patient also with probable mild DKA related to his infection present on admission. Noted with AG 16, BHO 2.6 and serum bicarb 21. He was also having n/v and glucose of 455. Treated with IV fluids and insulin resumed. Symptoms improved. A1c 10.4. Potassium was low and this was replaced. Patient was educated about benefits of smoking cessation. Patient was having drainage from a juancarlos-umbilcal lesion that had resolved prior to admission. Cystic lesion just above his umbilicus noted with abdominal ultrasound showing ventral hernia. No pain in this area to suggest incarceration. Provided patient information about seeing general surgery if he wishes to have this repaired. Discussed signs/symptoms of incarcerated hernia. He overall did well was able be discharged home on 01/10/2023. Discharge instructions were discussed with patient. Status at Discharge Cognitive/behavioral status at discharge: Stable Time Spent with Patient Time attestation: Total time spent providing and/or coordinating discharge services: 34 minutes Time spent: Greater than 30 minutes Exam Narrative: AF 97.1 146/96 70 20 100% ra Gen - NARD Chest -clear to auscultation bilaterally. Normal respiratory rate CV - RRR S1/S2. Tele showing no significant dysrhythmias Abd - Soft, NT/ND, Positive BS. no drainage noted from periumbilical area Ext - No pedal edema. Neuro - Alert and oriented. Nonfocal exam. Psych - Nml mood and affect Skin - Warm and dry. small open wound plantar surface without drainage overlying 3rd metatarsal head. DS: Data Data Completed and Pending Labs on day of discharge: Labs from last 24 hours 01/10/23 01/10/23 01/10/23 11:34 07:46 07:12 WBC RBC Hgb Hct MCV MCH MCHC RDW Plt Count MPV Immature Gran % (Auto) Neut % (Auto) Lymph % (Auto) [place] % (Auto) Eos % (Auto) Baso % (Auto) Lymph # (Auto) [place] # (Auto) Eos # (Auto) Baso # (Auto) Abs Immat Gran (auto) Absolute Neuts (au
[2023-01-10 16:21] LABS: Glucose Point of Care 145 mg/dl (65-105)
== END 2023-01-10 16:45 | disposition home or self-care (01) ==
LOC: ANHED 13:48 → ANHIMU 17:56
PROVIDERS: Nurse Practitioner; Admitting Provider Hospitalist; Emergency Provider Emergency Medicine; PCP Family Medicine; Visit Provider Internal Medicine
DX: E11.621 Type 2 diabetes mellitus with foot ulcer (principal); L97.509 Non-pressure chronic ulcer of other part of unspecified foot with unspecified severity; E11.10 Type 2 diabetes mellitus with ketoacidosis without coma; E87.6 Hypokalemia; I10 Essential (primary) hypertension; E11.40 Type 2 diabetes mellitus with diabetic neuropathy, unspecified; E87.1 Hypo-osmolality and hyponatremia; R79.0 Abnormal level of blood mineral; Z20.822 Contact with and (suspected) exposure to COVID-19; M79.662 Pain in left lower leg; M79.661 Pain in right lower leg; J44.9 Chronic obstructive pulmonary disease, unspecified; F41.8 Other specified anxiety disorders; E11.65 Type 2 diabetes mellitus with hyperglycemia; F17.210 Nicotine dependence, cigarettes, uncomplicated; F12.90 Cannabis use, unspecified, uncomplicated; Z79.85 Long-term (current) use of injectable non-insulin antidiabetic drugs; Z79.1 Long term (current) use of non-steroidal anti-inflammatories (NSAID); Z79.84 Long term (current) use of oral hypoglycemic drugs; Z79.899 Other long term (current) drug therapy; Z82.49 Family history of ischemic heart disease and other diseases of the circulatory system; Z81.8 Family history of other mental and behavioral disorders
CPT/HCPCS: 36415; 73630; 76705; 80048; 80053; 80069; 80202; 81001; 82010; 82948; 83036; 83605; 83735; 84100; 84443; 85025; 87040; 87081; 87637; 93005; 93970; 96361; 96365; 96366; 96367; 96368; 96372; 96374; 96375; 96376; 99285; A9270; G0378; G0379; J0692; J1650; J1815; J3010; J3370; J3475; J3480; J7030

== ENCOUNTER 2023-03-23 15:41 | Observation (INO) | payer OTHER, SELFPAY ==
--- NOTE | ~2023-03-23 | XR_ITS ---
EXAMINATION: XR chest 1V DATE: 03/23/2023 17:23 INDICATION: Altered mental status TECHNIQUE: frontal view of the chest was obtained. COMPARISON: Chest radiograph dated 04/29/2020 FINDINGS: The lungs are clear with no focal airspace opacities, pulmonary edema, pleural effusion or pneumothor ax. The cardiomediastinal silhouette is normal. Mild thoracic spondylosis. IMPRESSION: 1. No acute cardiopulmonary disease. Reviewed, dictated and finalized at location A.
--- NOTE | ~2023-03-23 | CT_ITS ---
EXAMINATION: CT brain wo con DATE: 03/23/2023 17:20 INDICATION: Altered mental status TECHNIQUE: Computed tomography (CT) of the head was performed without intravenous contrast. Sagittal and coronal reconstructions were performed. The mA was adjusted according to patient size. Iterative reconstruction technique was employed. The dose-length product was 1513.33 mGy-cm. COMPARISON: head CT dated 07/08/2004 FINDINGS: No acute intracranial hemorrhage, acute infarction or abnormal extra axial fluid collection. Ventricl es are normal and symmetric with normal variant cavum septum pellucidum. No mass/mass effect. Mild mu cosal thickening in the paranasal sinuses. The orbits and mastoid air cells are normal. Maxilla is ed entulous. IMPRESSION: 1. No acute intracranial process. Reviewed, dictated and finalized at location A.
[2023-03-23 15:36] VITALS: BP 134/100; PULSE 98; RESP 12; TEMP 36.3; O2SAT 98
--- NOTE | 2023-03-23 15:47 | ECG_ITS ---
Measurements Intervals [place] Rate: 74 P: 44 [place]: 181 QRS: 5 QRSD: 99 T: 44 QT: 443 QTc: 492 Interpretive Statements SINUS RHYTHM PROLONGED QT INTERVAL ABNORMAL ECG COMPARED TO ECG 04/27/2020 16:01:57 SINUS RHYTHM NOW PRESENT PROLONGED QT INTERVAL NOW PRESENT Electronically Signed On 03-23-2023 20:31:29 CDT by Juan Jose Villegas D.O.
[2023-03-23 17:02] LABS: Basophils Absolute Auto 0.1 K/mm3 (0.0-0.1); Basophils Percent Auto 0.7 % (0.2-1.2); Eosinophils Absolute Auto 0.3 K/mm3 (0-0.3); Eosinophils Percent Auto 2.4 % (0-4.4); Hematocrit 46.5 % (42.0-52.0); Hemoglobin 16.1 g/dL (14.0-18.0); Immature Granulocyte Absolute 0.04 K/mm3 (0.00-0.031); Immature Granulocyte Percent A 0.4 % (0-0.5); Lymphocytes Absolute Auto 3.55 K/mm3 (0.9-3.2); Lymphocytes Percent Auto 33.4 % (18.3-44.2); Mean Corpuscular HGB Conc 34.6 g/dl (32-36); Mean Corpuscular Hemoglobin 28.8 pg (26-34); Mean Platelet Volume 10.8 fl (7.4-10.4); Monocytes Absolute Auto 0.6 K/mm3 (0.1-0.6); Monocytes Percent Auto 5.6 % (2.6-8.5); Neutrophils Absolute Auto 6.1 K/mm3 (1.3-6.7); Neutrophils Percent Auto 57.5 % (45.5-73.1); Platelet Count Result 277 k/mm3 (150-375); Red Cell Distribution Width 13.4 % (11.5-14.5); White Blood Count 10.6 K/mm3 (4.5-10.0)
[2023-03-23 17:13] LABS: Lipase 255 U/L (23-300)
[2023-03-23 17:14] LABS: Lactic Acid Reflex 2.4 mmol/L (0.7-2.0)
[2023-03-23 17:16] LABS: Alanine Aminotransferase 26 U/L (6-50); Albumin Level 4.3 g/dL (3.5-5.1); Alkaline Phosphatase 176 U/L (38-126); Anion Gap 10 mmol/L (8-16); Aspartate Amino Transferase 32 U/L (17-59); Bilirubin,Total 0.7 mg/dL (0.2-1.3); Blood Urea Nitrogen 9 mg/dL (9-20); Carbon Dioxide 26 mmol/L (22-30); Chloride 99 mmol/L (98-107); Estimated Glomerular Filt Rate > 60; Glucose 359 mg/dL (65-110); Potassium 2.6 mmol/L (3.4-5.0); Sodium 135 mmol/L (137-145)
[2023-03-23 17:49] LABS: Acetaminophen < 10 ug/mL (10-30); Ethanol < 10 mg/dL (<10); Salicylate < 1.0 mg/dL (2-20)
[2023-03-23] MEDS: POTASSIUM CHLORIDE INJ 40 MEQ in SODIUM CHLORIDE 0.9% IV 500 ML 130 MEQ IVPB (18:09)
--- NOTE | 2023-03-23 19:15 | ED.GENADULT ---
HPI - General Adult General Chief complaint: Fall Stated complaint: took extra gabapentin Time Seen by Provider: 03/23/23 15:42 History of Present Illness HPI narrative: Patient is a 42-year-old male who presents ER with increased falls and altered mental status. Family reports over the last 2 days patient has been more confused and has been falling when trying to walk. Patient sleeping and snoring upon initial presentation. Patient can only be awoken with sternal rub and will then fall back asleep. He is however oriented when he can be kept awake. He reports he took 3 gabapentin today due to pain from falling. Usually he only takes 1 gabapentin. Denies any intentional overdose. No fevers or chills or sweats. Has some mild discomfort in his right hip but maintains range of motion. Related Data Home Medications Medication Instructions Recorded Confirmed gabapentin 300 mg capsule 400 mg PO BID 04/27/20 01/08/23 insulin glargine 100 unit/mL (3 100 unit subcut DAILY 04/27/20 01/08/23 mL) subcutaneous pen (Backblaze U-100 Insulin) metoprolol tartrate 100 mg tablet 100 mg PO BID 04/27/20 01/08/23 glyburide 2.5 mg tablet 2 mg PO DAILY 05/19/20 01/08/23 Allergies Allergy/AdvReac Type Severity Reaction Status Date / Time tramadol AdvReac Hallucinati Verified 01/08/23 17:15 ng Review of Systems Review of Systems: ROS unobtainable: Yes unobtainable due to medical condition PMFSH Past Medical History Medical History (Updated 03/23/23 @ 21:28 by Jere Scott MD) COPD (chronic obstructive pulmonary disease) Depression with anxiety Diabetic neuropathy DM2 (diabetes mellitus, type 2) History of COPD History of diabetes mellitus History of hypertension HTN (hypertension) with goal to be determined Kidney stones Neuropathy Surgical History Surgical History H/O tooth extraction History of cardiac catheterization 2013, no coronary artery disease History of lithotripsy Family History Family History Mother Cerebrovascular accident Hypertension Depression Father Diabetes mellitus Heart disease Cancer Grandparent Heart disease COPD (chronic obstructive pulmonary disease) Kidney disease Social History Social History (Updated 01/08/23 @ 19:23 by Ashly Salas NP) Social History: The patient is and lives with his . He has 3 children. 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 Patient is down to smoking 1 pack a cigarettes a day he said he used to smoke 2 and 3 packs of cigarettes a day. He denies any alcohol. uses marijuana code status full code Smoking packs per day: 1 Smoking cigarettes per day: 20.0 Years smoked: 29 Smoking pack-years: 29.00 Smoking status: Current every day smoker Tobacco type: cigarettes Second hand tobacco smoke exposure: Yes Alcohol intake: never Substance use: current Substance use type: marijuana Last use: 01/06/23 Lack of Transportation: YES Lack of Food: Never True Current Housing: I Have Housing Concerned About Future Housing: No Difficulty Paying Gas/Electric Bills: No Difficulty Paying for Meds: No Currently Unemployed: No Education: High School Diploma/GED Difficulty w/ Childcare or Family Care: No Gender identity (if verbalized by the patient): Male Spiritual care concerns: No Exam Narrative: GENERAL: Chronically ill-appearing, well-nourished, and sleeping/sedated. HEAD: Normocephalic, atraumatic. EYES: PERRLA and EOMI. ENT: Mucous membranes moist. CHEST: Clear to auscultation. No respiratory distress. HEART: Regular rate and rhythm. Normal peripheral pulses. ABDOMEN: Soft, nontender, nondistended. EXTREMITIES: Normal range of motion. No edema. SKIN: Warm, dry, no rash. NEURO: Awakens to sternal rub and is oriented x3. No
--- NOTE | 2023-03-23 19:16 | PC.NURSE ---
This RN assumed care of patient.
[2023-03-23 19:18] LABS: Appearance Urine Clear (Clear); Bacteria Urine None Seen /hpf; Bilirubin Urine Negative (Negative); Blood Urine Negative (Negative); Color Urine Yellow (Yellow); Glucose Urine UA 3+ mg/dL (Negative); Ketones Urine Negative (Negative); Leukocyte Esterase Ur Negative LEU/UL (Negative); Need Manual Microscopic Reviewed; Nitrate Urine Negative (Negative); Non Pathogenic Casts 0-2; Protein Urine Trace mg/dL (Negative); RBC Urine 0-2 /hpf (0-2); Specific Grav Ur 1.016 (1.001-1.035); Squamous Epithelial Cell Urine None seen /hpf (Few); WBC Urine 0-5 /hpf
--- NOTE | 2023-03-23 19:18 | ECG_ITS ---
Measurements Intervals [place] Rate: 84 P: 45 OR: 168 QRS: -15 QRSD: 106 T: 36 QT: 418 QTc: 495 Interpretive Statements SINUS RHYTHM POSSIBLE LEFT ATRIAL ENLARGEMENT DELAYED PRECORDIAL R/S TRANSITION CONSIDER INFERIOR INFARCT, AGE INDETERMINATE ABNORMAL ECG COMPARED TO ECG 04/27/2020 16:01:57 SINUS RHYTHM NOW PRESENT Electronically Signed On 03-23-2023 20:42:25 CDT by Juan Jose Villegas D.O.
[2023-03-23 19:19] LABS: Add Urine Microscopic? YES
[2023-03-23 19:31] VITALS: BP 124/81; PULSE 72; RESP 16; O2SAT 97
[2023-03-23] MEDS: POTASSIUM CHLORIDE 20 MEQ TABLET 40 MEQ PO ×2 (19:38→21:14)
[2023-03-23 19:46] LABS: Amphetamine Screen Urine Negative (Negative); Barbiturate Screen Urine Negative (Negative); Benzodiazepines Screen Urine Positive (Negative); Cannabinoid Screen Urine Positive (Negative); Cocaine Screen Urine Negative (Negative); Methadone Screen Urine Negative (Negative); Opiate Screen Urine Negative (Negative); Phencyclidine Screen Urine Negative (Negative)
[2023-03-23 19:59] LABS: Reflex Lactic Acid Yes or No Add Lactic
[2023-03-23 20:13] LABS: Alveolar/Arterial O2 Gradient 35.3 mmHg; Base Excess ABG -2.8 mEq/l (+/-2.0); Carboxyhemoglobin 3.2 % THb (0-2.0); Fractional Inspired Oxygen 21 %; HCO3 ABG 22.7 mEq/l (22.0-26.0); Methemoglobin ABG 0.4 %THb (0-1.5); Oxygen Content ABG 19.1 %vol (16.0-22.0); Oxygen Saturation ABG 91.3 % (95.0-100.0); Oxyhemoglobin 88.3 % THb (90.0-100.0); PCO2 ABG 42.3 mmHg (35.0-45.0); PO2 ABG 63.8 mmHg (80.0-100.0); PO2 FiO2 Ratio Arterial Blood 3.04 %; Reduced Hemoglobin 8.1 %THb (0-5.0); Total Hemoglobin 15.4 g/dL (12.0-18.0); pH ABG 7.348 (7.350-7.450)
[2023-03-23 20:14] LABS: Modified Allen's Test Pass; Site Drawn RIGHT RADIAL
[2023-03-23 20:26] LABS: Glucose Point of Care 267 mg/dl (65-105)
[2023-03-23 20:38] LABS: Lactic Acid 1.6 mmol/L (0.7-2.0)
--- NOTE | 2023-03-23 21:07 | PC.NURSE ---
Upon taking over pt, potassium was noted on the left forearm IV. This Rn initiated new 20 gauge IV on the right AC. to start fluids.
[2023-03-23 21:30] VITALS: PULSE 76; RESP 17; O2SAT 97
[2023-03-23 21:36] LABS: Magnesium 1.8 mg/dL (1.6-2.3); Phosphorus 3.5 mg/dL (2.5-4.5)
[2023-03-23 21:58] VITALS: BP 155/95; PULSE 73; RESP 24; O2SAT 98
[2023-03-23 22:46] VITALS: BMI 28.6
[2023-03-23] MEDS: SODIUM CHLORIDE 0.9% IV 1,000 ML 125 ML IV CONT (23:12)
[2023-03-23 23:30] VITALS: BP 139/79; PULSE 67; RESP 21; TEMP 36.2; O2SAT 100
[2023-03-24] VITALS: PULSE 73
[2023-03-24 04:00] VITALS: PULSE 75
[2023-03-24 05:12] LABS: Hematocrit 43.1 % (42.0-52.0); Hemoglobin 14.8 g/dL (14.0-18.0); Mean Corpuscular HGB Conc 34.3 g/dl (32-36); Mean Corpuscular Hemoglobin 28.7 pg (26-34); Mean Corpuscular Volume 83.7 fl (80-100); Mean Platelet Volume 11.7 fl (7.4-10.4); Platelet Count Result 239 k/mm3 (150-375); Red Blood Count 5.15 M/mm3 (4.6-6.20); Red Cell Distribution Width 13.4 % (11.5-14.5); White Blood Count 8.5 K/mm3 (4.5-10.0)
[2023-03-24 05:24] LABS: Alanine Aminotransferase 19 U/L (6-50); Albumin Level 3.6 g/dL (3.5-5.1); Alkaline Phosphatase 155 U/L (38-126); Anion Gap 4 mmol/L (8-16); Aspartate Amino Transferase 24 U/L (17-59); Bilirubin,Total 0.7 mg/dL (0.2-1.3); Blood Urea Nitrogen 7 mg/dL (9-20); Calcium 8.3 mg/dL (8.4-10.2); Carbon Dioxide 27 mmol/L (22-30); Chloride 108 mmol/L (98-107); Estimated CRCL calculation 181 ml/min; Estimated Glomerular Filt Rate > 60; Glucose 231 mg/dL (65-110); Potassium 2.8 mmol/L (3.4-5.0); Sodium 139 mmol/L (137-145)
[2023-03-24] MEDS: POTASSIUM CHLORIDE 20 MEQ TABLET 80 MEQ PO (05:50)
[2023-03-24 07:05] VITALS: BP 142/79; PULSE 78; RESP 18; TEMP 36.4; O2SAT 97
[2023-03-24 07:51] VITALS: PULSE 80; O2SAT 93
[2023-03-24 08:00] VITALS: PULSE 77
[2023-03-24] MEDS: METOPROLOL TARTRATE 50 MG TAB 100 MG PO (08:33)
[2023-03-24] MEDS: ATORVASTATIN 40 MG TABLET 80 MG PO (08:34)
[2023-03-24 08:36] LABS: Glucose Point of Care 242 mg/dl (65-105)
[2023-03-24] MEDS: POTASSIUM CHLORIDE 20 MEQ TABLET.ER 40 MEQ PO (09:21)
[2023-03-24] MEDS: SODIUM CHLORIDE 0.9% IV 1,000 ML 125 ML IV CONT (09:23)
--- NOTE | 2023-03-24 09:30 | PM.SD2 ---
Same Day Admit/Disch: HPI History of Present Illness Chief complaint: Hypokalemia,AMS, Prolonged QT Narrative: Robert Dickson is a 42 year old male With a past medical history of diabetes, hypertension, COPD who presented to the ED with family with reports of confusion and falling. It was noted that patient did have a potassium of 2.8 upon arrival and was given potassium supplement is currently at 3.6. Patient stated that he was having some issues over the last couple days which he thinks is mostly related to his foot wound. He stated that he ran out of his Ambien so he took 1 of his mother's Xanax in order to keep his sleep-wake cycle under control. He stated that when he does take the Xanax it does make him very tired. He also stated that he fell on Thursday and hit his hip. He at that time took 2 extra gabapentin totaling 1200 mg since he was having some significant pain. He stated that he does have some weakness and fatigue however he did state that it was mostly related to the bottom of his foot. He is much more alert and much more responsive. He also stated that he does wrap his foot at home and chronic keep some off-balance and he cannot get issue on. He also stated that he has been wearing a surgical shoe due to the foot wound. He currently denies any chest pain, shortness a breath, nausea, vomiting, diarrhea, constipation, sweats, fevers, chills, lightheadedness, dizziness, urinary dysfunction including pain, burning, urgency or frequency. Patient has been able to get up and walk around the room. Head CT in the ER showed no acute intracranial process, chest x-ray showed no acute cardiopulmonary process. Currently patient is doing much better. Patient is wanting to be discharged. Patient is stable at this time per labs and vital signs. patient is being admitted to the hospitalist service under observation [facility] Past Medical History Medical History COPD (chronic obstructive pulmonary disease) Depression with anxiety Diabetic neuropathy DM2 (diabetes mellitus, type 2) History of COPD History of diabetes mellitus History of hypertension HTN (hypertension) with goal to be determined Kidney stones Neuropathy Surgical History Surgical History H/O tooth extraction History of cardiac catheterization 2013, no coronary artery disease History of lithotripsy Family History Family History Mother Cerebrovascular accident Hypertension Depression Father Diabetes mellitus Heart disease Cancer Grandparent Heart disease COPD (chronic obstructive pulmonary disease) Kidney disease Social History Social History (Updated 03/24/23 @ 15:00 by GWENDOLYN Wynn) Social History: The patient is and lives with his zaire who will be his surrogate. He has 3 children. 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 Patient is down to smoking 1 pack a cigarettes a day he said he used to smoke 2 and 3 packs of cigarettes a day. He denies any alcohol. uses marijuana code status full code Smoking packs per day: 1 Smoking cigarettes per day: 20.0 Years smoked: 29 Smoking pack-years: 29.00 Smoking status: Current some day smoker Tobacco type: cigarettes Second hand tobacco smoke exposure: Yes Alcohol intake: never Substance use: current Substance use type: marijuana Last use: 01/06/23 Lack of Transportation: No Lack of Food: Never True Current Housing: I Have Housing Concerned About Future Housing: No Difficulty Paying Gas/Electric Bills: No Difficulty Paying for Meds: No Currently Unemployed: No Education: High School Diploma/GED Difficulty w/ Childcare or Family Care: No Gender identity (if verbalized by the patient): Male Spiritual care concerns: No Same Day
[2023-03-24] MEDS: INSULIN GLARGINE (*BKC) 100 UNITS/ML 40 UNITS SUB-Q (12:02)
[2023-03-24] MEDS: INSULIN ASPART (*BKC) 100 UNITS/ML SUB-Q (12:02)
[2023-03-24] MEDS: SILVERGEL (ELTA) 45 ML 1 APPLIC TOPICAL (12:02)
[2023-03-24] MEDS: glyBURIDE 2.5 MG TABLET PO (12:08)
[2023-03-24 12:12] LABS: Glucose Point of Care 265 mg/dl (65-105)
[2023-03-24 12:55] LABS: Potassium 3.5 mmol/L (3.4-5.0)
[2023-03-24 14:45] VITALS: BP 150/94; PULSE 67; RESP 18; TEMP 36.8; O2SAT 100
[2023-03-24] MEDS: POTASSIUM CHLORIDE 20 MEQ PACKET (FOR LIQUID) 40 MEQ PO (15:33)
== END 2023-03-24 16:46 | disposition home health service (06) ==
LOC: ANHED 21:28 → ANH2MED 22:32
PROVIDERS: Admitting Provider Internal Medicine; Emergency Provider Emergency Medicine; PCP Family Medicine; Visit Provider Family Medicine
DX: E11.621 Type 2 diabetes mellitus with foot ulcer (principal); L97.509 Non-pressure chronic ulcer of other part of unspecified foot with unspecified severity; E11.65 Type 2 diabetes mellitus with hyperglycemia; E11.40 Type 2 diabetes mellitus with diabetic neuropathy, unspecified; G93.41 Metabolic encephalopathy; E87.6 Hypokalemia; M25.551 Pain in right hip; R29.6 Repeated falls; J44.9 Chronic obstructive pulmonary disease, unspecified; F48.1 Depersonalization-derealization syndrome; R94.31 Abnormal electrocardiogram [ECG] [EKG]; I10 Essential (primary) hypertension; F17.210 Nicotine dependence, cigarettes, uncomplicated; F12.90 Cannabis use, unspecified, uncomplicated; Z79.4 Long term (current) use of insulin; Z79.84 Long term (current) use of oral hypoglycemic drugs; Z79.899 Other long term (current) drug therapy
CPT/HCPCS: 36415; 36600; 70450; 71045; 80053; 80307; 81001; 82375; 82805; 82948; 83050; 83605; 83690; 83735; 84100; 84132; 85025; 85027; 93005; 96360; 96361; 96365; 96366; 99285; A9270; G0378; G0379; J1815; J3480; J7030; J7040

== ENCOUNTER 2023-04-03 14:09 | Emergency (ER) | payer OTHER, SELFPAY ==
[2023-04-03 14:18] VITALS: BP 136/97; PULSE 82; RESP 18; TEMP 36.4; O2SAT 98
[2023-04-03 14:29] LABS: Glucose Point of Care 283 mg/dl (65-105)
[2023-04-03 14:42] LABS: Basophils Absolute Auto 0.1 K/mm3 (0.0-0.1); Basophils Percent Auto 0.7 % (0.2-1.2); Eosinophils Absolute Auto 0.3 K/mm3 (0-0.3); Eosinophils Percent Auto 2.5 % (0-4.4); Hematocrit 48.3 % (42.0-52.0); Hemoglobin 16.9 g/dL (14.0-18.0); Immature Granulocyte Absolute 0.05 K/mm3 (0.00-0.031); Immature Granulocyte Percent A 0.5 % (0-0.5); Lymphocytes Absolute Auto 2.87 K/mm3 (0.9-3.2); Lymphocytes Percent Auto 26.7 % (18.3-44.2); Mean Corpuscular Hemoglobin 29.2 pg (26-34); Mean Corpuscular Volume 83.6 fl (80-100); Mean Platelet Volume 11.2 fl (7.4-10.4); Monocytes Absolute Auto 0.7 K/mm3 (0.1-0.6); Monocytes Percent Auto 6.2 % (2.6-8.5); Neutrophils Absolute Auto 6.8 K/mm3 (1.3-6.7); Neutrophils Percent Auto 63.4 % (45.5-73.1); Platelet Count Result 329 k/mm3 (150-375); Red Blood Count 5.78 M/mm3 (4.6-6.20); Red Cell Distribution Width 13.9 % (11.5-14.5); White Blood Count 10.8 K/mm3 (4.5-10.0)
[2023-04-03 14:55] LABS: Beta-Hydroxybutyrate/Acetoacetate 0.06 mmol/L (0.02-0.27)
[2023-04-03 14:56] LABS: Appearance Urine Clear (Clear); Bacteria Urine None Seen /hpf; Bilirubin Urine Negative (Negative); Blood Urine 1+ (Negative); Color Urine Yellow (Yellow); Glucose Urine UA 2+ mg/dL (Negative); Ketones Urine Negative (Negative); Leukocyte Esterase Ur Negative LEU/UL (Negative); Nitrate Urine Negative (Negative); Non Pathogenic Casts 0-2; Protein Urine 2+ mg/dL (Negative); Specific Grav Ur 1.015 (1.001-1.035); Squamous Epithelial Cell Urine None seen /hpf (Few); WBC Urine 0-5 /hpf; pH Urine 6.5 (5.0-9.0)
[2023-04-03 15:08] LABS: Add Urine Microscopic? YES
[2023-04-03 15:14] LABS: Alanine Aminotransferase 21 U/L (6-50); Albumin Level 4.6 g/dL (3.5-5.1); Alkaline Phosphatase 186 U/L (38-126); Anion Gap 13 mmol/L (8-16); Aspartate Amino Transferase 24 U/L (17-59); Bilirubin,Total 0.7 mg/dL (0.2-1.3); Blood Urea Nitrogen 8 mg/dL (9-20); Calcium 9.2 mg/dL (8.4-10.2); Carbon Dioxide 24 mmol/L (22-30); Chloride 100 mmol/L (98-107); Estimated CRCL calculation 134 ml/min; Estimated Glomerular Filt Rate > 60; Glucose 297 mg/dL (65-110); Magnesium 1.7 mg/dL (1.6-2.3); Phosphorus 3.7 mg/dL (2.5-4.5); Potassium 2.6 mmol/L (3.4-5.0); Sodium 137 mmol/L (137-145)
--- NOTE | 2023-04-03 15:43 | ECG_ITS ---
Measurements Intervals [place] Rate: 71 P: 46 [place]: 164 QRS: 30 QRSD: 91 T: 67 QT: 415 QTc: 454 Interpretive Statements SINUS RHYTHM DELAYED PRECORDIAL R/S TRANSITION PROLONGED QT INTERVAL ABNORMAL ECG COMPARED TO ECG 03/23/2023 19:29:23 HEART RATE HAS DECREASED Electronically Signed On 04-03-2023 15:58:07 CDT by Juan Jose Villegas D.O.
[2023-04-03] MEDS: POTASSIUM CHLORIDE 20 MEQ TABLET 40 MEQ PO (16:20)
[2023-04-03 16:45] VITALS: BP 152/98; PULSE 73; RESP 18; O2SAT 97
--- NOTE | 2023-04-03 17:02 | ED.GENADULT ---
HPI - General Adult General Chief complaint: Recheck/Abnormal Lab/Rx Stated complaint: high blood sugar Time Seen by Provider: 04/03/23 15:59 History of Present Illness HPI narrative: Patient is a 42-year-old male who presents ER with concerns of elevated blood sugars. Reports they are in the 400s yesterday and low 300s this morning. He takes Lantus and glyburide. He has been trying to get into his PCP and feels he may need insulin short acting. Because he has not been able to go to his PCPs clinic he decided come in here to see if he can be started on a short acting insulin. Patient has no extremity weakness or fevers or chills. He is chronically uncontrolled from chart review. Patient does currently have an ulceration on his right foot and he is receiving home health. Patient has no new fevers or chills or sweats. No issues with his foot at this time. No additional complaints. Related Data Home Medications Medication Instructions Recorded Confirmed gabapentin 300 mg capsule 400 mg PO QID PRN Muscle Pain 04/27/20 03/23/23 insulin glargine 100 unit/mL (3 80 unit subcut QAM 04/27/20 03/23/23 mL) subcutaneous pen (Basaglar KwikPen U-100 Insulin) metoprolol tartrate 100 mg tablet 100 mg PO BID 04/27/20 03/23/23 glyburide 2.5 mg tablet 2 mg PO DAILY 05/19/20 03/23/23 atorvastatin 80 mg tablet 80 mg PO DAILY 03/23/23 03/23/23 sertraline 100 mg tablet 200 mg PO HS 03/23/23 03/23/23 zolpidem 10 mg tablet 10 mg PO HS 03/23/23 03/23/23 Allergies Allergy/AdvReac Type Severity Reaction Status Date / Time tramadol AdvReac Hallucinati Verified 01/08/23 17:15 ng Review of Systems Review of Systems: All systems reviewed & are unremarkable except as noted in HPI and below Constitutional: Constitutional: Denies chills, Denies fatigue and Denies fever(s) ENT: Denies nasal congestion and Denies sore throat Cardiovascular: Cardiovascular: Denies chest pain, Denies rapid heart rate and Denies radiating jaw, neck or arm pain Respiratory: Respiratory: Denies cough and Denies dyspnea Gastrointestinal: Gastrointestinal: Denies abdominal pain, Denies nausea and Denies vomiting [facility] Past Medical History Medical History COPD (chronic obstructive pulmonary disease) Depression with anxiety Diabetic neuropathy DM2 (diabetes mellitus, type 2) History of COPD History of diabetes mellitus History of hypertension HTN (hypertension) with goal to be determined Kidney stones Neuropathy Surgical History Surgical History H/O tooth extraction History of cardiac catheterization 2013, no coronary artery disease History of lithotripsy Family History Family History Mother Cerebrovascular accident Hypertension Depression Father Diabetes mellitus Heart disease Cancer Grandparent Heart disease COPD (chronic obstructive pulmonary disease) Kidney disease Social History Social History (Updated 03/24/23 @ 15:00 by GWENDOLYN Wynn) Social History: The patient is and lives with his zaire who will be his surrogate. He has 3 children. 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 Patient is down to smoking 1 pack a cigarettes a day he said he used to smoke 2 and 3 packs of cigarettes a day. He denies any alcohol. uses marijuana code status full code Smoking packs per day: 1 Smoking cigarettes per day: 20.0 Years smoked: 29 Smoking pack-years: 29.00 Smoking status: Current some day smoker Tobacco type: cigarettes Second hand tobacco smoke exposure: Yes Alcohol intake: never Substance use: current Substance use type: marijuana Last use: 01/06/23 Lack of Transportation: No Lack of Food: Never True Current Housing: I Have Housing Concerned About Future Housing: No Diff
== END 2023-04-03 17:09 | disposition home or self-care (01) ==
PROVIDERS: Emergency Medicine; Emergency Provider Emergency Medicine; PCP Family Medicine
DX: E11.65 Type 2 diabetes mellitus with hyperglycemia (principal); E11.621 Type 2 diabetes mellitus with foot ulcer; L97.519 Non-pressure chronic ulcer of other part of right foot with unspecified severity; E87.6 Hypokalemia; J44.9 Chronic obstructive pulmonary disease, unspecified; E11.40 Type 2 diabetes mellitus with diabetic neuropathy, unspecified; I10 Essential (primary) hypertension; Z87.442 Personal history of urinary calculi; F41.9 Anxiety disorder, unspecified; Z79.4 Long term (current) use of insulin; F17.210 Nicotine dependence, cigarettes, uncomplicated; R94.31 Abnormal electrocardiogram [ECG] [EKG]
CPT/HCPCS: 36415; 80053; 81001; 82010; 82948; 83735; 84100; 85025; 93005; 99283; A9270

== ENCOUNTER 2023-08-17 12:48 | Outpatient (CLI) | payer OTHER, SELFPAY ==
[2023-08-17 13:14] LABS: Basophils Absolute Auto 0.1 K/mm3 (0.0-0.1); Basophils Percent Auto 0.8 % (0.2-1.2); Eosinophils Absolute Auto 0.2 K/mm3 (0-0.3); Eosinophils Percent Auto 2.6 % (0-4.4); Hematocrit 43.8 % (42.0-52.0); Hemoglobin 15.3 g/dL (14.0-18.0); Immature Granulocyte Absolute 0.02 K/mm3 (0.00-0.031); Immature Granulocyte Percent A 0.2 % (0-0.5); Lymphocytes Absolute Auto 2.02 K/mm3 (0.9-3.2); Lymphocytes Percent Auto 24.2 % (18.3-44.2); Mean Corpuscular HGB Conc 34.9 g/dl (32-36); Mean Corpuscular Hemoglobin 31.1 pg (26-34); Mean Platelet Volume 11.2 fl (7.4-10.4); Monocytes Absolute Auto 0.5 K/mm3 (0.1-0.6); Monocytes Percent Auto 5.7 % (2.6-8.5); Neutrophils Absolute Auto 5.6 K/mm3 (1.3-6.7); Neutrophils Percent Auto 66.5 % (45.5-73.1); Platelet Count Result 288 k/mm3 (150-375); Red Blood Count 4.92 M/mm3 (4.6-6.20); Red Cell Distribution Width 13.2 % (11.5-14.5); White Blood Count 8.4 K/mm3 (4.5-10.0)
[2023-08-17 13:18] LABS: Alanine Aminotransferase 15 U/L (6-50); Albumin Level 4.5 g/dL (3.5-5.1); Alkaline Phosphatase 129 U/L (38-126); Anion Gap 9 mmol/L (8-16); Aspartate Amino Transferase 19 U/L (17-59); Bilirubin,Total 0.6 mg/dL (0.2-1.3); Blood Urea Nitrogen 19 mg/dL (9-20); Calcium 9.2 mg/dL (8.4-10.2); Carbon Dioxide 31 mmol/L (22-30); Chloride 97 mmol/L (98-107); Cholesterol 208 mg/dL (0-200); Estimated Glomerular Filt Rate > 60; Glucose 318 mg/dL (65-110); HDL Direct 51 mg/dL; Potassium 3.3 mmol/L (3.4-5.0); Sodium 137 mmol/L (137-145); Triglycerides 176 mg/dL (<150)
[2023-08-17 13:29] LABS: LDL Cholesterol Direct 120 mg/dL
[2023-08-17 13:37] LABS: Hemoglobin A1C 8.3 % (<5.7)
[2023-08-17 13:52] LABS: Vitamin D 25 Hydroxy 22.4 ng/mL
== END 2023-08-17 12:49 | disposition home or self-care (01) ==
LOC: ANHLAB 12:51
PROVIDERS: PCP Family Medicine; Visit Provider Family Medicine
DX: E78.5 Hyperlipidemia, unspecified (principal); I10 Essential (primary) hypertension; E55.9 Vitamin D deficiency, unspecified; E11.621 Type 2 diabetes mellitus with foot ulcer
CPT/HCPCS: 36415; 80048; 80061; 80076; 82306; 83036; 85025

== ENCOUNTER 2023-08-24 18:06 | Emergency (ER) | payer OTHER, SELFPAY ==
[2023-08-24] VITALS (39 sets, daily range): BP systolic 155–168; BP diastolic 100–109; PULSE 90–115; RESP 0–25; TEMP 37.4; O2SAT 95–100
--- NOTE | ~2023-08-24 | CT_ITS ---
EXAMINATION: CT facial bones w con DATE: 08/24/2023 22:31 INDICATION: Face injury. TECHNIQUE: Computed tomography (CT) of the facial bones and maxillofacial region was performed with 7 5 mL Omnipaque 350 intravenous contrast. Automated exposure control and iterative reconstruction tech Prescreen were employed. The dose-length product was 471.57 mGy-cm. COMPARISON: None. FINDINGS: There is left cheek soft tissue swelling. The orbits are normal. There is plaque in the pro ximal internal carotid arteries with 0% stenosis relative to normal distal artery lumen diameters. Th ere is mild mucosal thickening in the paranasal sinuses. There is a fracture of anterior wall of left maxillary sinus with 1 mm inward displacement. The patient is edentulous. The mastoid air cells are normal. IMPRESSION: 1. Fracture of anterior wall of left maxillary sinus. Reviewed, dictated and finalized at location E.
[2023-08-24 18:40] LABS: Basophils Absolute Auto 0.1 K/mm3 (0.0-0.1); Basophils Percent Auto 0.7 % (0.2-1.2); Eosinophils Absolute Auto 0.5 K/mm3 (0-0.3); Eosinophils Percent Auto 4.4 % (0-4.4); Hematocrit 47.5 % (42.0-52.0); Hemoglobin 16.4 g/dL (14.0-18.0); Immature Granulocyte Absolute 0.05 K/mm3 (0.00-0.031); Immature Granulocyte Percent A 0.4 % (0-0.5); Lymphocytes Absolute Auto 3.22 K/mm3 (0.9-3.2); Lymphocytes Percent Auto 26.5 % (18.3-44.2); Mean Corpuscular HGB Conc 34.5 g/dl (32-36); Mean Corpuscular Hemoglobin 30.7 pg (26-34); Mean Platelet Volume 10.9 fl (7.4-10.4); Monocytes Absolute Auto 0.7 K/mm3 (0.1-0.6); Monocytes Percent Auto 5.5 % (2.6-8.5); Neutrophils Absolute Auto 7.6 K/mm3 (1.3-6.7); Neutrophils Percent Auto 62.5 % (45.5-73.1); Platelet Count Result 326 k/mm3 (150-375); Red Blood Count 5.34 M/mm3 (4.6-6.20); Red Cell Distribution Width 13.3 % (11.5-14.5); White Blood Count 12.2 K/mm3 (4.5-10.0)
[2023-08-24 18:46] LABS: Appearance Urine Clear (Clear); Bacteria Urine None Seen /hpf; Bilirubin Urine Negative (Negative); Blood Urine 3+ (Negative); Color Urine Yellow (Yellow); Glucose Urine UA 3+ mg/dL (Negative); Ketones Urine Negative (Negative); Leukocyte Esterase Ur Negative LEU/UL (Negative); Nitrate Urine Negative (Negative); Protein Urine 3+ mg/dL (Negative); Specific Grav Ur 1.022 (1.001-1.035); Squamous Epithelial Cell Urine None seen /hpf (Few); WBC Urine 0-5 /hpf
[2023-08-24 18:54] LABS: Alanine Aminotransferase 21 U/L (6-50); Alkaline Phosphatase 164 U/L (38-126); Anion Gap 12 mmol/L (8-16); Aspartate Amino Transferase 31 U/L (17-59); Bilirubin,Total 0.7 mg/dL (0.2-1.3); Blood Urea Nitrogen 12 mg/dL (9-20); Calcium 9.7 mg/dL (8.4-10.2); Carbon Dioxide 25 mmol/L (22-30); Chloride 101 mmol/L (98-107); Estimated CRCL calculation 118 ml/min; Estimated Glomerular Filt Rate > 60; Glucose 233 mg/dL (65-110); Potassium 2.8 mmol/L (3.4-5.0); Sodium 138 mmol/L (137-145)
[2023-08-24 18:59] LABS: Add Urine Microscopic? YES
[2023-08-24 19:08] LABS: Ethanol < 10 mg/dL (<10)
[2023-08-24 19:16] LABS: Influenza A QL RT-PCR Negative (Negative); Influenza B QL RT-PCR Negative (Negative); RSV RNA, RT-PCR Negative (Negative); SARS-CoV-2 RNA PCR Negative (Negative)
[2023-08-24 19:20] LABS: Thyroid Stimulating Hormone 0.966 uIU/mL (0.465-4.680)
[2023-08-24 21:23] LABS: Amphetamine Screen Urine Negative (Negative); Barbiturate Screen Urine Negative (Negative); Benzodiazepines Screen Urine Positive (Negative); Cannabinoid Screen Urine Positive (Negative); Cocaine Screen Urine Negative (Negative); Methadone Screen Urine Negative (Negative); Opiate Screen Urine Negative (Negative); Phencyclidine Screen Urine Negative (Negative)
[2023-08-24] MEDS: POTASSIUM CHLORIDE 20 MEQ ER TABLET 40 MEQ PO (22:35)
[2023-08-25] MEDS: LIDOCAINE, EPINEPHRINE, TETRACAINE VISCOUS SOLN 3 ML 6 ML TOPICAL (00:10)
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
[2023-08-25] MEDS: LIDO 1%/EPINEPHRINE 1:100,000 20 ML VIAL 5 ML INFILTRATE (01:06)
== END 2023-08-25 05:30 | disposition home or self-care (01) ==
PROVIDERS: Emergency Medicine; Emergency Provider Emergency Medicine; PCP Family Medicine
DX: S61.512A Laceration without foreign body of left wrist, initial encounter (principal); S61.511A Laceration without foreign body of right wrist, initial encounter; S02.40DA Maxillary fracture, left side, initial encounter for closed fracture; E87.6 Hypokalemia; T50.3X6A Underdosing of electrolytic, caloric and water-balance agents, initial encounter; E11.40 Type 2 diabetes mellitus with diabetic neuropathy, unspecified; Z11.52 Encounter for screening for COVID-19; J44.9 Chronic obstructive pulmonary disease, unspecified; I10 Essential (primary) hypertension; F41.8 Other specified anxiety disorders; Z87.442 Personal history of urinary calculi; F17.210 Nicotine dependence, cigarettes, uncomplicated; Z79.4 Long term (current) use of insulin; X78.9XXA Intentional self-harm by unspecified sharp object, initial encounter; Y04.0XXA Assault by unarmed brawl or fight, initial encounter
CPT/HCPCS: 12004; 36415; 70487; 80053; 80307; 81001; 84443; 85025; 87637; 99284; A9270; Q9967

== ENCOUNTER 2023-09-01 07:16 | Emergency (ER) | payer OTHER, SELFPAY ==
[2023-09-01] VITALS (10 sets, daily range): BP systolic 142–190; BP diastolic 69–96; PULSE 81–96; RESP 10–24; TEMP 36.5–38.3; O2SAT 94–100
--- NOTE | ~2023-09-01 | XR_ITS ---
Clinical Indication: Chest pain PA and lateral views of the chest: Comparison: 03/23/2023 Findings: The lungs are clear, without evidence of focal consolidation or pleural effusion. Cardiome diastinal silhouette is within normal limits. Bones and soft tissues are unremarkable. Impression: Normal chest. Reviewed, dictated and finalized at location . Impression: Normal chest.
--- NOTE | ~2023-09-01 | CT_ITS ---
EXAMINATION: CTA chest PE protocol DATE: 09/01/2023 09:15 CDT INDICATION: Left-sided chest pain TECHNIQUE: Computed tomographic angiography (CTA) of the chest was performed with 100 mL Omnipaque-35 0 intravenous contrast. The dose-length product was 1667.78 mGy-cm. Maximum intensity projection 3D-r econstructions of the aorta and other arteries were constructed by the technologist on a separate wor kstation. Automated exposure control and iterative reconstruction technique were employed. COMPARISON: CT dated 04/28/2020 FINDINGS: Small pleural effusions. Heart size normal. Study is technically limited due to contrast alie jorge timing. No large central pulmonary embolism. No thoracic lymphadenopathy. No evidence for aneurys m or dissection. No endobronchial lesions. No pneumothorax. No focal airspace consolidation. No suspicious pulmonary n odules or masses. There is dependent atelectasis. Mild thoracic spondylosis. IMPRESSION: 1. No large central pulmonary embolism. Evaluation of peripheral pulmonary arteries limited. 2: Small pleural effusions with dependent atelectasis. Reviewed, dictated and finalized at location L. IMPRESSION: 1. No large central pulmonary embolism. Evaluation of peripheral pulmonary peter macario limited. 2: Small pleural effusions with dependent atelectasis.
--- NOTE | 2023-09-01 07:17 | ECG_ITS ---
Measurements Intervals [place] Rate: 81 P: 55 MA: 182 QRS: 19 QRSD: 93 T: 56 QT: 406 QTc: 472 Interpretive Statements SINUS RHYTHM POSSIBLE LEFT ATRIAL ENLARGEMENT [-0.1mV P WAVE IN V1/V2] COMPARED TO ECG 04/03/2023 15:52:04 PROLONGED QT INTERVAL NO LONGER PRESENT Electronically Signed On 09-01-2023 19:53:41 CDT by Ana Novoa M.D.
[2023-09-01 07:32] LABS: Basophils Absolute Auto 0.1 K/mm3 (0.0-0.1); Basophils Percent Auto 0.4 % (0.2-1.2); Eosinophils Percent Auto 0.1 % (0-4.4); Hematocrit 40.8 % (42.0-52.0); Hemoglobin 13.8 g/dL (14.0-18.0); Immature Granulocyte Percent A 0.6 % (0-0.5); Lymphocytes Absolute Auto 0.77 K/mm3 (0.9-3.2); Lymphocytes Percent Auto 4.5 % (18.3-44.2); Mean Corpuscular HGB Conc 33.8 g/dl (32-36); Mean Corpuscular Hemoglobin 30.3 pg (26-34); Mean Corpuscular Volume 89.5 fl (80-100); Mean Platelet Volume 11.3 fl (7.4-10.4); Monocytes Absolute Auto 0.4 K/mm3 (0.1-0.6); Monocytes Percent Auto 2.5 % (2.6-8.5); Neutrophils Absolute Auto 15.6 K/mm3 (1.3-6.7); Neutrophils Percent Auto 91.9 % (45.5-73.1); Platelet Count Result 231 k/mm3 (150-375); Red Blood Count 4.56 M/mm3 (4.6-6.20); Red Cell Distribution Width 13.4 % (11.5-14.5)
[2023-09-01 07:49] LABS: INR 1.1; Prothrombin Time 14.7 Seconds (11.1-14.7)
[2023-09-01 07:50] LABS: Partial Thromboplastin Time 34.6 SECONDS (22.3-36.8)
[2023-09-01 07:51] LABS: Alanine Aminotransferase 14 U/L (6-50); Albumin Level 4.3 g/dL (3.5-5.1); Alkaline Phosphatase 125 U/L (38-126); Anion Gap 10 mmol/L (8-16); Aspartate Amino Transferase 18 U/L (17-59); Bilirubin,Total 0.6 mg/dL (0.2-1.3); Blood Urea Nitrogen 11 mg/dL (9-20); Calcium 8.3 mg/dL (8.4-10.2); Carbon Dioxide 26 mmol/L (22-30); Chloride 95 mmol/L (98-107); Estimated CRCL calculation 115 ml/min; Estimated Glomerular Filt Rate > 60; Glucose 240 mg/dL (65-110); Lipase 320 U/L (23-300); Potassium 2.6 mmol/L (3.4-5.0); Sodium 131 mmol/L (137-145)
[2023-09-01] MEDS: POTASSIUM CHLORIDE 20 MEQ PACKET (FOR LIQUID) 40 MEQ PO (07:56)
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
[2023-09-01] MEDS: KCL 20 MEQ/SW 100 ML 100 ML 50 MEQ IVPB (07:59)
[2023-09-01] MEDS: SODIUM CHLORIDE 0.9% IV 1,000 ML 999 ML IV CONT (08:00)
[2023-09-01 08:12] LABS: Influenza A QL RT-PCR Negative (Negative); Influenza B QL RT-PCR Negative (Negative); RSV RNA, RT-PCR Negative (Negative); SARS-CoV-2 RNA PCR Negative (Negative)
[2023-09-01] MEDS: ONDANSETRON INJ 4 MG/2 ML VIAL IV PUSH (08:20)
[2023-09-01] MEDS: ACETAMINOPHEN 500 MG TABLET 1000 MG PO (08:20)
--- NOTE | 2023-09-01 08:22 | PC.NURSE ---
pt had large emesis, ERP notified and medication given for vomiting and oral temp of 100.7
[2023-09-01 08:32] LABS: D Dimer 2.53 ug/mL (<0.48)
[2023-09-01 10:44] LABS: Troponin I 0.021 ng/mL (0.000-0.034)
== END 2023-09-01 11:18 | disposition home or self-care (01) ==
PROVIDERS: Emergency Provider Emergency Medicine; PCP Family Medicine
DX: E87.6 Hypokalemia (principal); R07.81 Pleurodynia; J44.9 Chronic obstructive pulmonary disease, unspecified; F32.A Depression, unspecified; F41.9 Anxiety disorder, unspecified; E11.40 Type 2 diabetes mellitus with diabetic neuropathy, unspecified; Z79.4 Long term (current) use of insulin; I10 Essential (primary) hypertension; Z87.442 Personal history of urinary calculi; F17.210 Nicotine dependence, cigarettes, uncomplicated
CPT/HCPCS: 36415; 71046; 71275; 80053; 83690; 84484; 85025; 85380; 85610; 85730; 87637; 93005; 96365; 96366; 96375; 99284; A9270; J2405; J3480; J7030; Q9967

== ENCOUNTER 2023-09-06 17:54 | Emergency (ER) | payer OTHER, SELFPAY ==
--- NOTE | ~2023-09-06 | CT_ITS ---
CT OF right foot EXAMINATION: CT foot RT w con DATE: 09/06/2023 20:11 INDICATION: Cellulitis, rule out deep space infection TECHNIQUE: Computed tomography (CT) of the right foot was performed without intravenous contrast. Aut omated exposure control and iterative reconstruction technique were employed. The dose-length product was 432.43 mGy-cm. COMPARISON: X-ray right foot 01/08/2023 FINDINGS: Normal mineralization. No fracture or dislocation. No osseous erosion. Mild dermal enhancem ent and subcutaneous stranding over the right heel. Small posteromedial heel soft tissue defect. Flui d-filled defects noted on the posterolateral heel and over the medial aspect of the ball of the foot which may represent small dermal abscesses versus fluid-filled and dressing covered soft tissue ulcer ations. IMPRESSION: No CT evidence of osteomyelitis or deep space infection. Healed cellulitis with soft tissue ulceration. Posterolateral heel and medial ball of foot fluid zan ections, may represent dressing covered and fluid filled ulcerations versus dermal abscesses, correla te clinically. Reviewed, dictated and finalized at location K. IMPRESSION: No CT evidence of osteomyelitis or deep space infection. Healed cellulitis with soft tissue ulceration. Posterolateral heel and medial b all of foot fluid collections, may represent dressing covered and fluid filled ulcerations versus dermal abscesses, correlate clinically.
[2023-09-06 17:58] VITALS: BP 151/99; PULSE 98; RESP 20; TEMP 36.5; O2SAT 98
--- NOTE | 2023-09-06 18:25 | ED.GENADULT ---
HPI - General Adult General Chief complaint: Wound/Laceration <Jhoan Howard PA-C - Last Filed: 09/07/23 02:13> Stated complaint: R FOOT DIABETIC ULCER <AUTUMN Dela Cruz Last Filed: 09/07/23 02:13> Time Seen by Provider: 09/06/23 18:03 <Jhoan Howard PA-C - Last Filed: 09/07/23 02:13> Source: patient <AUTUMN Dela Cruz Last Filed: 09/07/23 02:13> Mode of arrival: ambulatory <AUTUMN Dela Cruz Last Filed: 09/07/23 02:13> Limitations: no limitations <AUTUMN Dela Cruz Last Filed: 09/07/23 02:13> History of Present Illness HPI narrative: This is a 42-year-old male with PMH of DM type II who presents to the ED with chief complaint of chronic right foot pain. 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 Reports pain is worsened with walking or any pressure on the area. Reports several callus formations and some blisters. He has had ulcers in the past and is concerned for this today. Denies fevers, chills, any drainage from the foot, nausea, vomiting. Additionally reports that he had sutures placed in his wrist in this department a couple of weeks ago and needs to have them removed. <Jhoan Howard PA-C - Last Filed: 09/07/23 02:13> Related Data Home medications: Home Medications Medication Instructions Recorded Confirmed gabapentin 300 mg capsule 400 mg PO QID PRN Muscle Pain 04/27/20 03/23/23 insulin glargine 100 unit/mL (3 80 unit subcut QAM 04/27/20 03/23/23 mL) subcutaneous pen (Aimeear AravindPen U-100 Insulin) metoprolol tartrate 100 mg tablet 100 mg PO BID 04/27/20 03/23/23 glyburide 2.5 mg tablet 2 mg PO DAILY 05/19/20 03/23/23 atorvastatin 80 mg tablet 80 mg PO DAILY 03/23/23 03/23/23 sertraline 100 mg tablet 200 mg PO HS 03/23/23 03/23/23 zolpidem 10 mg tablet 10 mg PO HS 03/23/23 03/23/23 <Jhoan Howard PA-C - Last Filed: 09/07/23 02:13> Allergies/adverse reactions: Allergies Allergy/AdvReac Type Severity Reaction Status Date / Time tramadol AdvReac Hallucinati Verified 09/06/23 18:11 ng <Jhoan Howard PA-C - Last Filed: 09/07/23 02:13> Review of Systems Review of Systems: All systems as dictated in HPI <Jhoan Howard PA-C - Last Filed: 09/07/23 02:13> [facility] Past Medical History Medical History: Medical History COPD (chronic obstructive pulmonary disease) Depression with anxiety Diabetic neuropathy DM2 (diabetes mellitus, type 2) History of COPD History of diabetes mellitus History of hypertension HTN (hypertension) with goal to be determined Kidney stones Neuropathy <Jhoan Howard PA-C - Last Filed: 09/07/23 02:13> Surgical History Surgical History: Surgical History H/O tooth extraction History of cardiac catheterization 2013, no coronary artery disease History of lithotripsy <Jhoan Howard PA-C - Last Filed: 09/07/23 02:13> Family History Family History: Family History Mother Cerebrovascular accident Hypertension Depression Father Diabetes mellitus Heart disease Cancer Grandparent Heart disease COPD (chronic obstructive pulmonary disease) Kidney disease <Jhoan Howard PA-C - Last Filed: 09/07/23 02:13> Social History Social History: Social History (Updated 03/24/23 @ 15:00 by GWENDOLYN [place]) Social History: The patient is and lives with his zaire who will be his surrogate. He has 3 children. 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 Patient is down to smoking 1 pack a cigarettes a day he said he used to smoke 2 and 3 packs of cigarettes a day. He denies any alcohol. uses marijuana code status full code Smoking packs per day: 1 Smoking cig
[2023-09-06 18:58] LABS: Basophils Absolute Auto 0.1 K/mm3 (0.0-0.1); Basophils Percent Auto 0.4 % (0.2-1.2); Eosinophils Absolute Auto 0.1 K/mm3 (0-0.3); Eosinophils Percent Auto 0.3 % (0-4.4); Hematocrit 39.3 % (42.0-52.0); Hemoglobin 13.7 g/dL (14.0-18.0); Immature Granulocyte Absolute 0.29 K/mm3 (0.00-0.031); Immature Granulocyte Percent A 1.7 % (0-0.5); Lymphocytes Absolute Auto 1.56 K/mm3 (0.9-3.2); Lymphocytes Percent Auto 9.1 % (18.3-44.2); Mean Corpuscular HGB Conc 34.9 g/dl (32-36); Mean Corpuscular Hemoglobin 29.8 pg (26-34); Mean Corpuscular Volume 85.4 fl (80-100); Mean Platelet Volume 11.7 fl (7.4-10.4); Monocytes Absolute Auto 0.8 K/mm3 (0.1-0.6); Monocytes Percent Auto 4.7 % (2.6-8.5); Neutrophils Absolute Auto 14.4 K/mm3 (1.3-6.7); Neutrophils Percent Auto 83.8 % (45.5-73.1); Platelet Count Result 342 k/mm3 (150-375); Red Cell Distribution Width 13.8 % (11.5-14.5); White Blood Count 17.2 K/mm3 (4.5-10.0)
[2023-09-06 19:20] LABS: Alanine Aminotransferase 20 U/L (6-50); Albumin Level 3.8 g/dL (3.5-5.1); Alkaline Phosphatase 283 U/L (38-126); Anion Gap 11 mmol/L (8-16); Aspartate Amino Transferase 27 U/L (17-59); Bilirubin,Total 1.4 mg/dL (0.2-1.3); Blood Urea Nitrogen 13 mg/dL (9-20); Calcium 8.9 mg/dL (8.4-10.2); Carbon Dioxide 25 mmol/L (22-30); Chloride 95 mmol/L (98-107); Estimated CRCL calculation 106 ml/min; Estimated Glomerular Filt Rate > 60; Glucose 255 mg/dL (65-110); Potassium 2.2 mmol/L (3.4-5.0); Sodium 131 mmol/L (137-145)
[2023-09-06 19:24] LABS: Erythrocyte Sedimentation Rate 26 mm/hr (0-20)
--- NOTE | 2023-09-06 19:33 | ECG_ITS ---
Measurements Intervals [place] Rate: 85 P: 45 NC: 167 QRS: 7 QRSD: 104 T: 59 QT: 402 QTc: 479 Interpretive Statements SINUS RHYTHM POSSIBLE LEFT ATRIAL ENLARGEMENT [-0.1mV P WAVE IN V1/V2] NONSPECIFIC T-WAVE ABNORMALITY ABNORMAL ECG COMPARED TO ECG 09/01/2023 07:19:42 T-WAVE ABNORMALITY NOW PRESENT Electronically Signed On 09-07-2023 8:49:04 CDT by Keon Wynne M.D.
[2023-09-06 19:38] LABS: CRP 38.2 mg/dL (<1.0)
[2023-09-06 19:41] VITALS: BP 168/90; PULSE 89; RESP 18; O2SAT 98
[2023-09-06] MEDS: POTASSIUM CHLORIDE 20 MEQ ER TABLET 40 MEQ PO (19:51)
[2023-09-06] MEDS: SODIUM CHLORIDE 0.9% IV 1,000 ML 999 ML IV CONT (20:32)
[2023-09-06] MEDS: POTASSIUM CHLORIDE INJ 40 MEQ in SODIUM CHLORIDE 0.9% IV 500 ML 130 MEQ IVPB (20:32)
[2023-09-06 20:36] VITALS: BP 150/80; PULSE 86; RESP 18; O2SAT 98
[2023-09-06 22:03] VITALS: BP 168/83; PULSE 93; RESP 16
--- NOTE | 2023-09-06 22:59 | PC.NURSE ---
Mom (Carole) stated if pt is discharged to call her @ [phone] and she will get him a ride home. Does not want the pt to walk home.
[2023-09-06 23:10] VITALS: BP 168/87; PULSE 92; RESP 12; O2SAT 98
[2023-09-07 00:38] LABS: Anion Gap 10 mmol/L (8-16); Blood Urea Nitrogen 11 mg/dL (9-20); Calcium 8.5 mg/dL (8.4-10.2); Carbon Dioxide 23 mmol/L (22-30); Chloride 96 mmol/L (98-107); Estimated CRCL calculation 118 ml/min; Estimated Glomerular Filt Rate > 60; Glucose 197 mg/dL (65-110); Potassium 2.6 mmol/L (3.4-5.0); Sodium 129 mmol/L (137-145)
[2023-09-07 01:46] VITALS: BP 165/97; PULSE 101; RESP 16; O2SAT 97
== END 2023-09-07 01:46 | disposition home or self-care (01) ==
PROVIDERS: Emergency Provider Physician Assistant; PCP Family Medicine
DX: L84 Corns and callosities (principal); E87.6 Hypokalemia; E11.9 Type 2 diabetes mellitus without complications; I10 Essential (primary) hypertension; J44.9 Chronic obstructive pulmonary disease, unspecified; F17.210 Nicotine dependence, cigarettes, uncomplicated
CPT/HCPCS: 36415; 73701; 80048; 80053; 85025; 85652; 86140; 93005; 96365; 96366; 99284; A9270; J3480; J7030; J7040; Q9967

== ENCOUNTER 2023-09-16 16:31 | Inpatient (IN) | payer OTHER, SELFPAY ==
[2023-09-16] VITALS (8 sets, daily range): BP systolic 105–123; BP diastolic 68–77; PULSE 88–95; RESP 11–19; TEMP 37; O2SAT 97–100
--- NOTE | ~2023-09-16 | XR_ITS ---
EXAMINATION: XR chest 1V portable DATE: 09/18/2023 23:52 INDICATION: Hypoxia. TECHNIQUE: A single frontal view of the chest was obtained. COMPARISON: Chest 2 views 09/16/2023, chest CT 09/17/2023 FINDINGS: There is a diffuse interstitial pattern in the lungs. There are airspace opacities in the p erihilar regions and at left lung base. There is a small left pleural effusion. No pneumothorax. The heart size is normal. IMPRESSION: 1. Diffuse lung disease, likely a combination of pneumonia and pulmonary edema. 2. Small left pleural effusion. Reviewed, dictated and finalized at location E. SOCKET ASSEMBLER
--- NOTE | ~2023-09-16 | CT_ITS ---
EXAMINATION: CT chest abdomen pelvis w con DATE: 09/17/2023 15:58 INDICATION: Left chest wall mass. Abnormal liver function tests. TECHNIQUE: Computed tomography (CT) of the chest, abdomen, and pelvis was performed with 100 mL Omnip aque 350 intravenous contrast. Automated exposure control and iterative reconstruction technique were employed. The dose-length product was 1362.12 mGy-cm. COMPARISON: chest CT 09/01/23 FINDINGS: CHEST CT: There are small pleural effusions, loculated on the left. There is mild atelectasis bilaterally. Ther e are airspace opacities in the lower lobes. The heart size is normal. There is a moderate-sized juancarlos cardial effusion with peritoneal thickening and enhancement. There is mild mediastinal lymphadenopath y. There is an nodule in the thyroid measuring up to 12 mm, likely not clinically significant. There are fractures of anterior left fourth and fifth ribs. There is a healing fracture of left seventh rib . There is a fluid collection in left anterior abdominal wall surrounding the rib fractures that is c ontiguous with a loculated component of left pleural effusion. The fluid collection measures 19.9 cm craniocaudal x 12.5 cm x 2.2 cm. There is mild thoracic spondylosis. ABDOMEN/PELVIS CT: The liver is normal. The gallbladder is normal in size. Gallbladder wall thickening is likely seconda ry to interstitial edema. The spleen, pancreas, and adrenal glands are normal. There is a 9 mm stone in right kidney. There are cysts in left kidney measuring up to 13 mm. Body wall edema is noted. Ther e is a small volume of ascites. There are no dilated loops of bowel. The appendix is normal. There ar e no pathologically enlarged lymph nodes. There is moderate lower lumbar spondylosis. IMPRESSION: 1. Subacute fractures of left fourth and fifth ribs. 2. 19.9 x 12.5 x 2.2 cm fluid collection in left anterior abdominal wall that surrounds the rib fract ures, likely a subacute hematoma. Infection is not excluded. 3. Small pleural effusions. 4. Moderate-sized pericardial effusion. The pericardial thickening and enhancement suggests an exudat e. 5. Airspace opacities in the lower lobes, consistent with atelectasis versus pneumonia. 6. Small volume of ascites. 7. Mild mediastinal lymphadenopathy, likely reactive. Reviewed, dictated and finalized at location E. ING INSTRUCTOR IMPRESSION: 1. Subacute fractures of left fourth and fifth ribs. 2. 19.9 x 12.5 x 2.2 cm fluid collection in left anterior abdominal wall that s urrounds the rib fractures, likely a subacute hematoma. Infection is not exclud ed. 3. Small pleural effusions. 4. Moderate-sized pericardial effusion. The pericardial thickening and enhancem ent suggests an exudate. 5. Airspace opacities in the lower lobes, consistent with atelectasis versus pn eumonia. 6. Small volume of ascites. 7. Mild mediastinal lymphadenopathy, likely reactive.
--- NOTE | ~2023-09-16 | XR_ITS ---
EXAMINATION: XR chest 1V portable DATE: 09/20/2023 05:54 INDICATION: Pneumonia. TECHNIQUE: A single frontal view of the chest was obtained. COMPARISON: Chest single view 09/18/2023 FINDINGS: There are small pleural effusions. There is a diffuse interstitial pattern in the lungs. Th ere are airspace opacities in the perihilar regions and at the lung bases. No pneumothorax. The heart size is normal. IMPRESSION: 1. Diffuse lung disease with worsening at left lung base, consistent with pulmonary edema versus pneu monia. 2. Small pleural effusions with worsening on the right. Reviewed, dictated and finalized at location E. NICAL ACCOUNT MANAGER IMPRESSION: 1. Diffuse lung disease with worsening at left lung base, consistent with pulmo nary edema versus pneumonia. 2. Small pleural effusions with worsening on the right.
--- NOTE | ~2023-09-16 | XR_ITS ---
EXAMINATION: XR chest 2V DATE: 09/16/2023 17:13 INDICATION: Chest pain TECHNIQUE: Frontal and lateral views of the chest are obtained COMPARISON: 09/01/2023 FINDINGS: There are airspace opacities of the lung bases and in the left midlung zone. There are smal l pleural effusions. No pneumothorax is identified. The cardiomediastinal silhouette is normal. The v isualized bones and soft tissues are unremarkable. IMPRESSION: 1. Airspace opacities of the lung bases and left midlung zone, consistent with atelectasis versus pne umonia. 2. Small pleural effusions. Reviewed, dictated and finalized at location B. RCYCLE MECHANIC IMPRESSION: 1. Airspace opacities of the lung bases and left midlung zone, consistent with atelectasis versus pneumonia. 2. Small pleural effusions.
--- NOTE | 2023-09-16 16:32 | ECG_ITS ---
Measurements Intervals [place] Rate: 87 P: 24 DE: 152 QRS: 40 QRSD: 102 T: 34 QT: 415 QTc: 501 Interpretive Statements SINUS RHYTHM BORDERLINE ST-T WAVE ABNORMALITY- INF/LAT LEADS BASELINE ARTIFACT- I, II, AVR, V1 BORDERLINE ECG COMPARED TO ECG 09/06/2023 19:41:36 NO SIGNIFICANT CHANGES Electronically Signed On 09-16-2023 18:36:20 NETWORK PLANNER by Juan Jose Villegas D.O.
[2023-09-16 17:00] LABS: Basophils Percent Auto 0.2 % (0.2-1.2); Eosinophils Percent Auto 0.2 % (0-4.4); Hematocrit 33.8 % (42.0-52.0); Hemoglobin 11.7 g/dL (14.0-18.0); Immature Granulocyte Absolute 0.29 K/mm3 (0.00-0.031); Immature Granulocyte Percent A 1.7 % (0-0.5); Lymphocytes Absolute Auto 1.85 K/mm3 (0.9-3.2); Lymphocytes Percent Auto 10.9 % (18.3-44.2); Mean Corpuscular HGB Conc 34.6 g/dl (32-36); Mean Corpuscular Hemoglobin 30.3 pg (26-34); Mean Corpuscular Volume 87.6 fl (80-100); Mean Platelet Volume 10.9 fl (7.4-10.4); Monocytes Absolute Auto 1.1 K/mm3 (0.1-0.6); Monocytes Percent Auto 6.7 % (2.6-8.5); Neutrophils Absolute Auto 13.6 K/mm3 (1.3-6.7); Neutrophils Percent Auto 80.3 % (45.5-73.1); Nucleated Red Blood Cells Absolute Auto 0.1 K/mm3 (0.0-0.012); Nucleated Red Blood Cells Perc 0.4 % (0.0-0.2); Platelet Count Result 592 k/mm3 (150-375); Red Blood Count 3.86 M/mm3 (4.6-6.20); Red Cell Distribution Width 15.4 % (11.5-14.5)
--- NOTE | 2023-09-16 17:09 | ED.CHESTPAIN ---
HPI - Chest Pain General Chief Complaint: Chest Pain Stated Complaint: chest pain Time Seen by Provider: 09/16/23 17:05 Source: patient and family (partner) Limitations: no limitations History of Present Illness HPI narrative: This is a 42 yo who presents with left sided chest pain for 5 days. He is also dyspneic and complains of being dizzy. He also had a cough productive of brown sputum. His chest hurts when he coughs. He has developed a lump over his left anterior chest at his pec. Pain is localized here; non radiating. Denies paroxysmal nocturnal dyspnea. Does feel like he has dry mouth. Thought symptoms were due to acid reflux. He has a history of hypokalemia for which he takes 40meq potassium daily (not in medication list below). Denies lower extremity edema. No history of DVT/PE. Decreased PO intake. Had vomited but not bloody. Feels intermittently hot and cold. He took Advil. states he has been shaking and talking in his sleep. He has been missing doses of his basaglar. He states his HA1C had been 13% but it was 8.3% most recently. He had reduced his smoking from 2PPD to 1PPD. Related Data Home Medications Medication Instructions Recorded Confirmed gabapentin 300 mg capsule 400 mg PO QID PRN Muscle Pain 04/27/20 09/17/23 insulin glargine 100 unit/mL (3 80 unit subcut QAM 04/27/20 09/17/23 mL) subcutaneous pen (Basaglar KwikPen U-100 Insulin) metoprolol tartrate 100 mg tablet 100 mg PO BID 04/27/20 09/17/23 glyburide 2.5 mg tablet 2 mg PO DAILY 05/19/20 09/17/23 atorvastatin 80 mg tablet 80 mg PO DAILY 03/23/23 09/17/23 sertraline 100 mg tablet 200 mg PO HS 03/23/23 09/17/23 zolpidem 10 mg tablet 10 mg PO HS 03/23/23 09/17/23 Allergies Allergy/AdvReac Type Severity Reaction Status Date / Time tramadol AdvReac Hallucinati Verified 09/06/23 18:11 ng [facility] Past Medical History Medical History (Updated 09/18/23 @ 00:05 by Cristal Owen MD) COPD (chronic obstructive pulmonary disease) Depression with anxiety Diabetic neuropathy DM2 (diabetes mellitus, type 2) History of COPD History of diabetes mellitus History of hypertension HTN (hypertension) with goal to be determined Hyperlipidemia Kidney stones Mitral regurgitation Neuropathy Surgical History Surgical History H/O tooth extraction History of cardiac catheterization 2013, no coronary artery disease History of lithotripsy Family History Family History Mother Cerebrovascular accident Hypertension Depression Father Diabetes mellitus Heart disease Cancer before age 60 Acute myocardial infarction Grandparent Heart disease COPD (chronic obstructive pulmonary disease) Kidney disease Social History Social History Social History: The patient is and lives with his zaire who will be his surrogate. He has 3 children. 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 Patient is down to smoking 1 pack a cigarettes a day he said he used to smoke 2 and 3 packs of cigarettes a day. He denies any alcohol. uses marijuana code status full code Smoking packs per day: 1 Smoking cigarettes per day: 20.0 Years smoked: 29 Smoking pack-years: 29.00 Smoking status: Current some day smoker Tobacco type: cigarettes Second hand tobacco smoke exposure: Yes Alcohol intake: never Substance use: current Substance use type: marijuana Last use: 1 month ago Lack of Transportation: No Lack of Food: Never True Current Housing: I Have Housing Concerned About Future Housing: No Difficulty Paying Gas/Electric Bills: No Difficulty Paying for Meds: No Currently Unemployed: No Education: High School Diploma/GED Difficulty w/ Childcare or Family Care: No Gender identity
[2023-09-16 17:12] LABS: INR 1.3; Prothrombin Time 17.1 Seconds (11.1-14.7)
[2023-09-16 17:13] LABS: Partial Thromboplastin Time 41.7 SECONDS (22.3-36.8)
[2023-09-16 17:17] LABS: Alanine Aminotransferase 52 U/L (6-50); Albumin Level 3.4 g/dL (3.5-5.1); Alkaline Phosphatase 400 U/L (38-126); Anion Gap 12 mmol/L (8-16); Aspartate Amino Transferase 60 U/L (17-59); Blood Urea Nitrogen 41 mg/dL (9-20); Calcium 8.9 mg/dL (8.4-10.2); Carbon Dioxide 23 mmol/L (22-30); Chloride 87 mmol/L (98-107); Estimated CRCL calculation 81 ml/min; Estimated Glomerular Filt Rate > 60; Glucose 449 mg/dL (65-110); Lipase 76 U/L (23-300); Potassium 2.9 mmol/L (3.4-5.0); Sodium 122 mmol/L (137-145)
[2023-09-16 17:34] LABS: Troponin I 0.065 ng/mL (0.000-0.034)
[2023-09-16] MEDS: ASPIRIN 81 MG CHEWABLE TABLET 324 MG PO (17:38)
[2023-09-16] MEDS: POTASSIUM PHOS/SODIUM PHOS 250 MG TABLET PO (18:11)
[2023-09-16] MEDS: SODIUM CHLORIDE 0.9% IV 1,000 ML 999 ML IV CONT (18:11)
[2023-09-16] MEDS: KCL 20 MEQ/SW 100 ML 100 ML 50 MEQ IVPB (18:12)
[2023-09-16 18:38] LABS: Troponin I 0.064 ng/mL (0.000-0.034)
--- NOTE | 2023-09-16 19:40 | PM.IMHP ---
H&P: HPI History of Present Illness Date/Time: 09/16/23 19:40 Chief Complaint: chest pain Narrative: This is a 42-year-old male with past medical history significant for insulin-dependent diabetes mellitus, right foot chronic ulcer, peripheral diabetic neuropathy, hypertension, COPD/emphysema. Patient presents to the emergency room due to chest pain however when last patient states that pain is localized to the chest wall not related to rest or exertion, patient denies any fevers, rigors, chills however has had generalized malaise fatigue nausea and vomiting. Patient with poor per orally intake as well. Preliminary workup was significant for numerous electrolyte derangements and a blood glucose in the 500s. A chest x-ray was reported as: EXAMINATION: XR chest 2V DATE: 09/16/2023 17:13 INDICATION: Chest pain TECHNIQUE: Frontal and lateral views of the chest are obtained COMPARISON: 09/01/2023 FINDINGS: There are airspace opacities of the lung bases and in the left midlung zone. There are small pleural effusions. No pneumothorax is identified. The cardiomediastinal silhouette is normal. The visualized bones and soft tissues are unremarkable. IMPRESSION: 1. Airspace opacities of the lung bases and left midlung zone, consistent with atelectasis versus pneumonia. 2. Small pleural effusions. Review of Systems Review of Systems: Nausea, vomiting, chest pain, generalized malaise, fatigue. Constitutional: Constitutional: Reports fatigue, Reports malaise, Denies night sweats and Reports weakness Eyes: Eyes: Denies change in vision ENT: Denies dysphagia, Denies vertigo, Denies dizziness and Denies odynophagia Cardiovascular: Cardiovascular: Reports chest pain, Denies radiating jaw, neck or arm pain and Denies palpitations Respiratory: Respiratory: Denies cough, Denies excessive phlegm production and Denies dyspnea Gastrointestinal: Gastrointestinal: Denies abdominal pain, Denies dyspepsia, Denies heartburn, Denies diarrhea, Reports nausea and Reports vomiting Genitourinary: Genitourinary: Denies dysuria Musculoskeletal: Musculoskeletal: Reports myalgias and Reports muscle weakness Integumentary/Breasts: Skin/Breast: Reports wounds (Right foot) Neurologic: Denies focal weakness and Denies Sensory deficit (Neuro) Psychiatric: Psychiatric: Reports no additional psychiatric complaints and Reports as per HPI Endocrine: Endocrine: Denies cold intolerance, Denies flushing, Denies heat intolerance, Denies polyphagia, Denies polydipsia and Denies palpitations Hematologic/Lymphatic: Hematologic/Lymphatic: Reports no additional hematologic/lymphatic complaints and Reports as per HPI Allergic/Immunologic: Allergic/Immunologic: Reports no additional allergic/immunologic complaints and Reports as per HPI [facility] Past Medical History Medical History COPD (chronic obstructive pulmonary disease) Depression with anxiety Diabetic neuropathy DM2 (diabetes mellitus, type 2) History of COPD History of diabetes mellitus History of hypertension HTN (hypertension) with goal to be determined Kidney stones Neuropathy Surgical History Surgical History H/O tooth extraction History of cardiac catheterization 2013, no coronary artery disease History of lithotripsy Family History Family History Mother Cerebrovascular accident Hypertension Depression Father Diabetes mellitus Heart disease Cancer Grandparent Heart disease COPD (chronic obstructive pulmonary disease) Kidney disease Social History Social History (Updated 03/24/23 @ 15:00 by GWENDOLYN [place]) Social History: The patient is and lives with his zaire who will be his surrogate. He has 3 children. 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 And his is the power of attorn
[2023-09-16] MEDS: INSULIN ASPART (*BKC) 100 UNITS/ML 10 UNITS SUB-Q (21:23)
[2023-09-16 21:59] LABS: Creatinine Urine 78.6 mg/dL
[2023-09-16 22:05] LABS: Sodium Urine Random < 5 meq/L
[2023-09-16] MEDS: ACETAMINOPHEN 325 MG TABLET 650 MG PO (23:32)
[2023-09-17] VITALS (18 sets, daily range): BP systolic 105–130; BP diastolic 67–81; PULSE 71–105; RESP 12–20; TEMP 36–37; O2SAT 91–100; BMI 28.8
--- NOTE | 2023-09-17 | ECHO_ITS ---
Patient Info Name: Robert Dickson Age: 42 years : 1980 Gender: Male Ht: 71 in Wt: 185 lbs BSA: 2.06 m2 HR: 97 bpm BP: 117 / 70 mmHg Heart Rhythm: Sinus Rhythm Technical Quality: Poor Exam Date: 09/17/2023 9:48 AM Exam Location: Echo Lab Patient Status: Outpatient Admit Date: 09/16/2023 Staff Ordering Physician: Gregory Moore MD Bulkhead Carpenter: Lashawn Parisi RDCS Attending Provider: Gregory Moore MD Referring Physician: Teresa SCOTT; Exam Type: CA echo dop color flow w con Study Info Indications - ELEVATED TROPONIN Complete two-dimensional, color flow and Doppler transthoracic echocardiogram is performed with contrast to opacify the left ventricle and to improve the deliniation of the left ventricle endocardial borders. Contrast/Agitated Saline Contrast/Ag. Saline: Definity Amount: 3.00 ml Existing IV Access: Yes Reason for Poor Study: poor echocardiographic windows Summary 1. Technically difficult study with limited views. Definity contrast administered. 2. Left ventricular chamber dimension is normal. 3. Left ventricular systolic function is hyperdynamic, estimated at >70%. 4. There is mildly increased left ventricular wall thickness. 5. The left ventricular diastolic function is grade II diastolic dysfunction. 6. The aortic valve was not well visualized, however, probable trileaflet. No obvious vegetation. 7. There is mild aortic valve sclerosis. 8. There is no aortic valve stenosis. 9. There is trace aortic valve regurgitation. 10. There is at least moderate mitral valve regurgitation. No per vegetation identified. Correlation advised. Unable to appreciate mitral prolapse. 11. The mitral valve annulus is mildly calcified. 12. The mitral valve has thickened leaflets. 13. There is trace tricuspid valve regurgitation. 14. No pulmonary hypertension, estimated pulmonary arterial systolic pressure is 32 mmHg. 15. There is moderate circumferential pericardial effusion with fibrinous material within the pericardial space. No echocardiographic features of tamponade physiology appreciated. However, complete hemodynamic assessment was not performed. 16. Moderately dilated inferior vena cava with <50% collapse upon inspiration consistent with elevated right atrial pressure, 10 mmHg. Recommendations * Consider transesophageal echocardiogram if clinically indicated. Left Ventricle Left ventricular chamber dimension is normal. Left ventricular systolic function is hyperdynamic, estimated at >70%. There is mildly increased left ventricular wall thickness. The left ventricular diastolic function is grade II diastolic dysfunction. Technically difficult study with limited views. Definity contrast administered. Right Ventricle Right ventricular chamber dimension is normal. Right ventricular systolic function is normal. Left Atria Left atrial chamber dimension is normal. Right Atria Right atrial chamber dimension is normal. Aortic Valve The aortic valve was not well visualized, however, probable trileaflet. No obvious vegetation. There is mild aortic valve sclerosis. There is no aortic valve stenosis. There is trace aortic valve regurgitation. Pulmonic Valve The pulmonic valve is not well visualized. Mitral Valve The mitral valve has thickened leaflets. There is at least moderate mitral valve regurgitation. No per vegetation identified. Correlation advised. Unable to appreciate mitral prolapse. The mitral valve annulus is mildly calcified. Tricuspid Valve The tricuspid valve leaf
[2023-09-17 00:21] LABS: Troponin I 0.068 ng/mL (0.000-0.034)
[2023-09-17] MEDS: cefTRIAXone 2 GM/NS 100 ML 2 GM/100 ML BAG IVPB (01:50)
[2023-09-17] MEDS: AZITHROMYCIN 500 MG/NS 250 ML 500 MG/250 ML BAG 250 MG IVPB (03:15)
--- NOTE | 2023-09-17 03:42 | ADMGEN ---
This patient, Robert Dickson, was admitted to IMU Room 206-02. Patient/family oriented to hospital policies and general routines including ID bracelet, bed and alarms, visiting hours, pain management, procedures, bathroom and other care routines, personal items, smoking policy, room service/diet, and visiting hours. Information on how to activate the Rapid Response Team has been discussed. Patient/Family are encouraged to report perceived risks to care and to ask questions if they do not understand what they are told or what they should do.
[2023-09-17 07:51] LABS: Glucose Point of Care 336 mg/dl (65-105)
[2023-09-17 09:01] LABS: Basophils Absolute Auto 0.1 K/mm3 (0.0-0.1); Basophils Percent Auto 0.3 % (0.2-1.2); Eosinophils Percent Auto 0.2 % (0-4.4); Hematocrit 34.2 % (42.0-52.0); Hemoglobin 11.6 g/dL (14.0-18.0); Immature Granulocyte Absolute 0.28 K/mm3 (0.00-0.031); Immature Granulocyte Percent A 1.6 % (0-0.5); Lymphocytes Absolute Auto 1.49 K/mm3 (0.9-3.2); Lymphocytes Percent Auto 8.8 % (18.3-44.2); Mean Corpuscular HGB Conc 33.9 g/dl (32-36); Mean Corpuscular Hemoglobin 29.9 pg (26-34); Mean Corpuscular Volume 88.1 fl (80-100); Mean Platelet Volume 11.1 fl (7.4-10.4); Monocytes Absolute Auto 1.3 K/mm3 (0.1-0.6); Monocytes Percent Auto 7.7 % (2.6-8.5); Neutrophils Absolute Auto 13.8 K/mm3 (1.3-6.7); Neutrophils Percent Auto 81.4 % (45.5-73.1); Nucleated Red Blood Cells Perc 0.1 % (0.0-0.2); Platelet Count Result 521 k/mm3 (150-375); Red Blood Count 3.88 M/mm3 (4.6-6.20); Red Cell Distribution Width 15.8 % (11.5-14.5)
[2023-09-17] MEDS: INSULIN ASPART (*BKC) 100 UNITS/ML SUB-Q ×3 (09:06→17:28)
[2023-09-17 09:11] LABS: Alanine Aminotransferase 41 U/L (6-50); Albumin Level 3.2 g/dL (3.5-5.1); Alkaline Phosphatase 354 U/L (38-126); Anion Gap 12 mmol/L (8-16); Aspartate Amino Transferase 48 U/L (17-59); Bilirubin,Total 2.1 mg/dL (0.2-1.3); Blood Urea Nitrogen 34 mg/dL (9-20); Calcium 8.6 mg/dL (8.4-10.2); Carbon Dioxide 21 mmol/L (22-30); Chloride 92 mmol/L (98-107); Estimated CRCL calculation 96 ml/min; Estimated Glomerular Filt Rate > 60; Glucose 323 mg/dL (65-110); Magnesium 1.5 mg/dL (1.6-2.3); Phosphorus 3.7 mg/dL (2.5-4.5); Potassium 2.8 mmol/L (3.4-5.0); Sodium 125 mmol/L (137-145)
--- NOTE | 2023-09-17 09:40 | ECG_ITS ---
Measurements Intervals [place] Rate: 98 P: 0 DC: 158 QRS: 22 QRSD: 103 T: 17 QT: 425 QTc: 543 Interpretive Statements SINUS RHYTHM NONSPECIFIC ST ELEVATION IN ANTERIOR LEADS BORDERLINE T WAVE ABNORMALITY- INF/HIGH LAT LEADS PROLONGED QT INTERVAL ABNORMAL ECG COMPARED TO ECG 09/16/2023 16:36:43 PROLONGED QT INTERVAL NOW PRESENT Electronically Signed On 09-17-2023 11:04:03 FURNACE RELINER by Juan Jose Villegas D.O.
[2023-09-17] MEDS: PERFLUTREN LIPID MICROSPHERES 1.5 ML VIAL DILUTED TO 10 ML TOTAL VOLUME IV PUSH (10:10)
--- NOTE | 2023-09-17 10:33 | PM.CNCAR ---
Assessment and Plan Assessment and plan (1) Chest pain: Qualifiers: Chest pain type: other chest pain Qualified Code(s): R07.89 - Other chest pain Code(s): R07.9 - Chest pain, unspecified Status: Acute Assessment and Plan: Chest pain atypical, constant for the past 5 days or so reproducible with palpation the chest wall with obvious chest wall swelling/edema and therefore may be musculoskeletal in etiology. However, considering his troponin mildly elevated with a flat curve consistent with type 2 infarction not consistent with acute coronary syndrome and/or plaque rupture additional considerations of warranted such as endocarditis and or pericarditis. EKG suggestive of diffuse J-point elevation and in light of significant pericardial effusion may be consistent clinically with subacute pericarditis. Will consider initiation of colchicine 0.6 mg twice daily, however, will discuss further workup with hospitalist service amongst his other clinical considerations. Check CRP, ESR. Monitor ECG. Continue telemetry. DVT prophylaxis 2D echocardiogram personally reviewed hyperdynamic LV systolic function moderate circumferential pericardial effusion with fibrinous material within the pericardial space. No obvious tamponade physiology. Mitral was not well visualized in all views however appeared mildly thickened no obvious vegetations mitral regurgitation was difficult to appreciate, however, later imaging reveals at least moderate regurgitation in 4 chamber view. Blood cultures pending. Given elevated inflammatory markers, nonhealing wound, significant glucose elevation with hemoglobin A1c of 8.3% concern for infectious process. Transesophageal echocardiogram likely warranted once his electrolyte abnormalities have been corrected provided patient remains hemodynamically stable and is deemed a reasonable candidate. Agree with expanding coverage including vancomycin at this time in addition to ceftriaxone and azithromycin. As such, adding colchicine to his regimen particular given mild renal insufficiency, nausea, vomiting and reported intermittent diarrhea and severe hypokalemia presentation concern with regards to tolerance, side effects. CT chest abdomen pelvis pending. Furthermore, patient has lost a significant amount of weight and relative short period time unintentionally which is highly concerning. Overall, patient is quite ill with multiple comorbidities. Prognosis guarded. I spent 84 minutes in the care of this patient at bedside including examination, discussion with patient and family at bedside, discussion with colleagues, review of laboratory studies, pertinent imaging, echocardiogram, ECG, telemetry, chart review, medical decision making, and documentation. (2) Elevated troponin: Code(s): R79.89 - Other specified abnormal findings of blood chemistry Status: Acute Assessment and Plan: As above, slight elevation flat curve not consistent with acute coronary syndrome and/or plaque rupture. Consistent with type 2 infarction in setting of hyperglycemia, severe hypokalemia, hyponatremia, nausea, vomiting, significant weight loss and possible clinical pericarditis. Also, can not exclude underlying CAD given coronary calcification noted on CT in the past but more concern with regards to infectious etiology and possible endocarditis although we will have a lot of information to support this at present. (3) Pericardial effusion: Code(s): I31.39 - Other pericardial effusion (noninflammatory) Status: Acute Assessment and Plan: Moderate pericardial effusion with fibrinous material within the pericardial space without clear tamponade physiology. Cautious with beta-loida therapy may consider reduction to 25 mg twice daily. Continue IV fluid support particularly if any hypotension. Etiology remains unclear. Given ECG abnormalities possible subacute pericarditis. As above, may consider initiation
[2023-09-17 11:21] LABS: Glucose Point of Care 279 mg/dl (65-105)
[2023-09-17 11:48] LABS: CRP 19.6 mg/dL (<1.0)
[2023-09-17] MEDS: MAGNESIUM SULF 2 GM/WATER 50ML 2 GM/50 ML BAG IVPB (11:56)
[2023-09-17] MEDS: INSULIN GLARGINE (*BKC) 100 UNITS/ML 10 UNITS SUB-Q (11:57)
[2023-09-17 12:01] LABS: Erythrocyte Sedimentation Rate 45 mm/hr (0-20)
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
--- NOTE | 2023-09-17 12:20 | IVDEFINITY ---
Prior to administration of IV Definity the patient was educated on the risks and benefits of the imaging enhancing agent including potential adverse side effects. The patient verbalized understanding. Allergies were verified. No exclusion criteria were identified and at least one of the following inclusion criteria were met: 1) physician request, 2) patient technically difficult to image (per the [place] [employer] guidelines of two or more segments not discernable within the apical view), or 3) questionable left ventricular function. ?
[2023-09-17] MEDS: POTASSIUM CHLORIDE INJ 40 MEQ in SODIUM CHLORIDE 0.9% IV 500 ML 130 MEQ IVPB (13:41)
[2023-09-17] MEDS: SODIUM CHLORIDE 0.9% IV 1,000 ML 100 ML IV CONT (13:42)
[2023-09-17] MEDS: ATORVASTATIN 40 MG TABLET 80 MG PO (13:46)
[2023-09-17] MEDS: ENOXAPARIN 40 MG/0.4 ML SYRINGE SUB-Q (13:48)
[2023-09-17 13:57] LABS: Glucose Point of Care 395 mg/dl (65-105)
[2023-09-17 16:15] LABS: Glucose Point of Care 323 mg/dl (65-105)
--- NOTE | 2023-09-17 16:44 | PC.NURSE ---
On 09/17/23, the student, Deisy [facility]RELL [facility], provided care and completed [employer] documentation on this patient. I have reviewed the student's documentation and agree with the findings.
[2023-09-17] MEDS: POTASSIUM CHLORIDE 20 MEQ ER TABLET PO (17:28)
[2023-09-17] MEDS: VANCOMYCIN 1,250 MG/NS 250 ML 1,250 MG/250 ML BAG 166.67 MG IVPB ×2 (18:36→20:56)
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
[2023-09-17 20:47] LABS: Glucose Point of Care 264 mg/dl (65-105)
[2023-09-17] MEDS: SERTRALINE HCL 50 MG TABLET 200 MG PO (20:54)
[2023-09-17] MEDS: METOPROLOL TARTRATE 25 MG TABLET PO (20:54)
[2023-09-17] MEDS: HYDROcodone/acetaminophen (*CRX) 5-325 MG TABLET 1 TAB PO (20:55)
[2023-09-17] MEDS: INSULIN GLARGINE (*BKC) 100 UNITS/ML 60 UNITS SUB-Q (20:56)
[2023-09-17 23:56] LABS: MRSA (PCR) NOT DETECTED (NOT DETECTE)
[2023-09-18] VITALS (20 sets, daily range): BP systolic 107–119; BP diastolic 71–81; PULSE 83–92; RESP 16–24; TEMP 36.1–36.9; O2SAT 81–97
[2023-09-18] MEDS: SODIUM CHLORIDE 0.9% IV 1,000 ML 100 ML IV CONT ×2 (00:37→13:31)
[2023-09-18] MEDS: cefTRIAXone 2 GM/NS 100 ML 2 GM/100 ML BAG IVPB (00:38)
[2023-09-18] MEDS: AZITHROMYCIN 500 MG/NS 250 ML 500 MG/250 ML BAG 250 MG IVPB (02:17)
[2023-09-18 05:02] LABS: Basophils Percent Auto 0.2 % (0.2-1.2); Eosinophils Percent Auto 0.3 % (0-4.4); Hematocrit 35.1 % (42.0-52.0); Hemoglobin 11.4 g/dL (14.0-18.0); Immature Granulocyte Percent A 1.4 % (0-0.5); Lymphocytes Absolute Auto 1.57 K/mm3 (0.9-3.2); Lymphocytes Percent Auto 10.8 % (18.3-44.2); Mean Corpuscular HGB Conc 32.5 g/dl (32-36); Mean Corpuscular Hemoglobin 29.4 pg (26-34); Mean Corpuscular Volume 90.5 fl (80-100); Mean Platelet Volume 11.3 fl (7.4-10.4); Neutrophils Absolute Auto 11.6 K/mm3 (1.3-6.7); Neutrophils Percent Auto 80.3 % (45.5-73.1); Nucleated Red Blood Cells Perc 0.1 % (0.0-0.2); Platelet Count Result 453 k/mm3 (150-375); Red Blood Count 3.88 M/mm3 (4.6-6.20); Red Cell Distribution Width 16.2 % (11.5-14.5); White Blood Count 14.5 K/mm3 (4.5-10.0)
[2023-09-18 05:20] LABS: Alanine Aminotransferase 33 U/L (6-50); Albumin Level 3.1 g/dL (3.5-5.1); Alkaline Phosphatase 331 U/L (38-126); Anion Gap 13 mmol/L (8-16); Aspartate Amino Transferase 40 U/L (17-59); Bilirubin,Total 1.6 mg/dL (0.2-1.3); Blood Urea Nitrogen 23 mg/dL (9-20); Calcium 8.5 mg/dL (8.4-10.2); Carbon Dioxide 21 mmol/L (22-30); Chloride 94 mmol/L (98-107); Estimated CRCL calculation 118 ml/min; Estimated Glomerular Filt Rate > 60; Glucose 237 mg/dL (65-110); Magnesium 1.7 mg/dL (1.6-2.3); Phosphorus 3.5 mg/dL (2.5-4.5); Potassium 2.8 mmol/L (3.4-5.0); Sodium 128 mmol/L (137-145)
[2023-09-18] MEDS: KCL 20 MEQ/SW 100 ML 100 ML 50 MEQ IVPB (06:18)
[2023-09-18] MEDS: MAGNESIUM SULF 1 GM/D5W 100 ML 1 GM/100 ML BAG IVPB (06:18)
[2023-09-18] MEDS: POTASSIUM CHLORIDE 20 MEQ ER TABLET 40 MEQ PO ×2 (06:18→20:27)
[2023-09-18] MEDS: ACETAMINOPHEN 325 MG TABLET 650 MG PO (06:34)
[2023-09-18 08:14] LABS: Glucose Point of Care 287 mg/dl (65-105)
[2023-09-18] MEDS: POTASSIUM CHLORIDE 20 MEQ ER TABLET PO ×2 (09:13→15:56)
[2023-09-18] MEDS: METOPROLOL TARTRATE 25 MG TABLET PO (09:13)
[2023-09-18] MEDS: ATORVASTATIN 40 MG TABLET 80 MG PO (09:14)
[2023-09-18] MEDS: ENOXAPARIN 40 MG/0.4 ML SYRINGE SUB-Q (09:14)
--- NOTE | 2023-09-18 10:37 | PM.PNCARD ---
Progress Note: A&P Assessment and Plan (1) Chest pain: Qualifiers: Chest pain type: other chest pain Qualified Code(s): R07.89 - Other chest pain Code(s): R07.9 - Chest pain, unspecified Status: Acute Assessment and Plan: Chest pain atypical, constant for the past 5 days or so reproducible with palpation the chest wall with obvious chest wall swelling/edema and therefore may be musculoskeletal in etiology. Troponins mildly elevated an flat, not consistent with ACS. 2D echocardiogram showed hyperdynamic LV systolic function moderate circumferential pericardial effusion with fibrinous material within the pericardial space. No obvious tamponade physiology. Moderate MR. May consider TWAN if blood cx positive when electrolytes normalize. For now, no additional cardiac workup recommended. (2) Elevated troponin: Code(s): R79.89 - Other specified abnormal findings of blood chemistry Status: Acute Assessment and Plan: As above, slight elevation flat curve not consistent with acute coronary syndrome and/or plaque rupture. Consistent with type 2 infarction in setting of hyperglycemia, severe hypokalemia, hyponatremia, nausea, vomiting, significant weight loss and possible clinical pericarditis. (3) Pericardial effusion: Code(s): I31.39 - Other pericardial effusion (noninflammatory) Status: Acute Assessment and Plan: Moderate pericardial effusion with fibrinous material within the pericardial space without clear tamponade physiology. Cautious with beta-loida therapy may consider reduction to 25 mg twice daily. Continue IV fluid support particularly if any hypotension. Etiology remains unclear. Given ECG abnormalities possible subacute pericarditis. May consider initiation of colchicine, however, given clinical picture and concern for side effects in light of acute renal insufficiency, clinical concern for gastric paresis and inability to keep food water down or hold off until after review CT chest, correction of electrolytes prior to initiation. Monitor clinically. Recommendation to follow. (4) QT prolongation: Code(s): R94.31 - Abnormal electrocardiogram [ECG] [EKG] Status: Acute Assessment and Plan: QT prolonged by ECG. Avoid QT prolonging drugs. Correct electrolyte abnormalities which may improve timing intervals. Repeat ECG post repletion. Keep potassium around 4.0 and magnesium around 2.0. (5) Hypokalemia: Code(s): E87.6 - Hypokalemia Status: Acute Assessment and Plan: Severe hypokalemia at presentation. As above, patient reports ongoing nausea, vomiting occasional diarrhea. Multifactorial explanation. Glucose control. Aggressive supplementation with potassium chloride to around 4.0. (6) Acute kidney injury: Code(s): N17.9 - Acute kidney failure, unspecified Status: Acute Assessment and Plan: Mild acute kidney injury likely prerenal azotemia secondary to dehydration. Agree with iV normal saline for IV fluid resuscitation as appropriate. Monitor volume status. Hyperdynamic LV systolic function by echocardiogram. (7) Pneumonia: Code(s): J18.9 - Pneumonia, unspecified organism Status: Acute Assessment and Plan: Possible based upon chest x-ray suggestive of infiltrate. (8) DM2 (diabetes mellitus, type 2): Qualifiers: Diabetes mellitus complication status: with other specified complication Diabetes mellitus mcc insulin use: unspecified terminal computer operator insulin use status Qualified Code(s): E11.69 - Type 2 diabetes mellitus with other specified complication Code(s): E11.9 - Type 2 diabetes mellitus without complications Status: Acute Assessment and Plan: Management per primary service. (9) Diabetic foot ulcer: Code(s): E11.621 - Type 2 diabetes mellitus with foot ulcer; L97.509 - Non-pressure chronic ulcer of other part of unspecified foot with uns
[2023-09-18 12:07] LABS: Glucose Point of Care 219 mg/dl (65-105)
[2023-09-18] MEDS: CALCIUM CARBONATE (TUMS) 500 MG (200 MG ELEMENTAL) PO (13:10)
[2023-09-18] MEDS: HYDROcodone/acetaminophen (*CRX) 5-325 MG TABLET 1 TAB PO (15:56)
--- NOTE | 2023-09-18 16:09 | ECG_ITS ---
Measurements Intervals [place] Rate: 91 P: 9 NV: 166 QRS: 27 QRSD: 102 T: 26 QT: 394 QTc: 485 Interpretive Statements SINUS RHYTHM NONSPECIFIC T-WAVE ABNORMALITY- INF/HIGH LAT LEADS PROLONGED QT INTERVAL ABNORMAL ECG COMPARED TO ECG 09/17/2023 10:54:25 NO SIGNIFICANT CHANGES Electronically Signed On 09-18-2023 16:29:10 [employer] by Juan Jose Villegas D.O.
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
[2023-09-18 18:59] LABS: Magnesium 1.5 mg/dL (1.6-2.3); Potassium 3.4 mmol/L (3.4-5.0)
[2023-09-18] MEDS: MAGNESIUM SULF 2 GM/WATER 50ML 2 GM/50 ML BAG IVPB (20:20)
[2023-09-18] MEDS: DOXYCYCLINE HYCLATE 100 MG TABLET PO (20:27)
[2023-09-18] MEDS: SERTRALINE HCL 50 MG TABLET 150 MG PO (20:27)
[2023-09-18 20:40] LABS: Glucose Point of Care 210 mg/dl (65-105)
[2023-09-18] MEDS: busPIRone HCL 2.5 MG TABLET PO (20:50)
[2023-09-18] MEDS: INSULIN GLARGINE (*BKC) 100 UNITS/ML 70 UNITS SUB-Q (20:53)
[2023-09-18 23:59] LABS: Alveolar/Arterial O2 Gradient 519.8 mmHg; Base Excess ABG -5.9 mEq/l (+/-2.0); Carboxyhemoglobin 0.3 % THb (0-2.0); Fractional Inspired Oxygen 90 %; HCO3 ABG 16.9 mEq/l (22.0-26.0); Methemoglobin ABG 0.4 %THb (0-1.5); Oxygen Content ABG 16.4 %vol (16.0-22.0); Oxygen Saturation ABG 97.6 % (95.0-100.0); Oxyhemoglobin 95.8 % THb (90.0-100.0); PCO2 ABG 25.9 mmHg (35.0-45.0); PO2 ABG 95.4 mmHg (80.0-100.0); PO2 FiO2 Ratio Arterial Blood 1.06 %; Reduced Hemoglobin 3.5 %THb (0-5.0); Total Hemoglobin 12.1 g/dL (12.0-18.0); pH ABG 7.433 (7.350-7.450)
[2023-09-19] VITALS (19 sets, daily range): BP systolic 110–117; BP diastolic 60–79; PULSE 86–107; RESP 18–20; TEMP 36.6–37.1; O2SAT 94–100
[2023-09-19 00:03] LABS: Device NON-REBREATHER MASK; Site Drawn LEFT BRACHIAL
[2023-09-19] MEDS: FUROSEMIDE INJ 40 MG/4 ML VIAL IV PUSH ×2 (00:56→11:43)
[2023-09-19] MEDS: cefTRIAXone 2 GM/NS 100 ML 2 GM/100 ML BAG IVPB (00:57)
--- NOTE | 2023-09-19 01:47 | P.PNCROSS_ITS ---
Event Note Event Note Event Note: Nursing staff called after the patient developed rapidly increasing oxygen requ irement. Patient had been on room air previously and had required increased oxygen to 15 L non-rebreather to maintain oxygen saturations of 91% stat chest x-ray and ABG were performed. ABG was unremarkable. X-ray on my review demonstrated pulmonary edema and/or pneumonia. The patient is positive 5.5 L since admission. Patient has also receive a large volume of fluids with antibiotic and electrolyte administration. Initially when patient developed his oxygen requirement nursing staff reports patient did not have a evidence of crackles. On exam patient had crackles right greater than left but crackles on the left or in the mid axillary line. Patient is not in any overt respiratory distress and was able to move himself around in the bed unassisted. He has no increased work of breathing. He is afebrile. Patient is already on antibiotic therapy with Rocephin. He was on vancomycin but has been transition to doxycycline. Patient has no evidence of overt edema. His echocardiogram did demonstrate grade 2 diastolic dysfunction with the EF greater than 70%. Moderate mitral valve regurgitation and moderate pericardial effusion. Patient was resting and sleeping soundly at the time of my evaluation and denied any complaints. Given the patient appears to be in volume overload patient was given a dose of IV Lasix. The patient's IV fluids were discontinued. The patient was receiving IV fluid hydration due to hyponatremia. Will monitor electrolyte panel closely repeat labs have been ordered for a.m.. 32 minute spent in critical care activities. Due to a high probability of clinically significant, life threatening deterioration, the patient required my highest level of preparedness to intervene emergently and I personally spent this critical care time directly and personally managing the patient. This critical care time included obtaining a history; examining the patient; pulse oximetry; ordering and review of studies; arranging urgent treatment with development of a management plan; evaluation of patient's response to treatment; frequent reassessment; and discussions with other providers. It was exclusive of separately billable procedures and treating other patients and teaching time. Please see Assessment and Plan section and the rest of the note for further information on patient assessment and treatment.
[2023-09-19 04:33] LABS: Basophils Percent Auto 0.2 % (0.2-1.2); Eosinophils Absolute Auto 0.1 K/mm3 (0-0.3); Eosinophils Percent Auto 0.4 % (0-4.4); Hemoglobin 11.4 g/dL (14.0-18.0); Immature Granulocyte Absolute 0.17 K/mm3 (0.00-0.031); Immature Granulocyte Percent A 1.2 % (0-0.5); Lymphocytes Absolute Auto 1.71 K/mm3 (0.9-3.2); Lymphocytes Percent Auto 12.1 % (18.3-44.2); Mean Corpuscular HGB Conc 32.6 g/dl (32-36); Mean Corpuscular Hemoglobin 29.3 pg (26-34); Mean Platelet Volume 10.7 fl (7.4-10.4); Monocytes Absolute Auto 0.9 K/mm3 (0.1-0.6); Monocytes Percent Auto 6.5 % (2.6-8.5); Neutrophils Absolute Auto 11.2 K/mm3 (1.3-6.7); Neutrophils Percent Auto 79.6 % (45.5-73.1); Platelet Count Result 441 k/mm3 (150-375); Red Blood Count 3.89 M/mm3 (4.6-6.20); White Blood Count 14.1 K/mm3 (4.5-10.0)
[2023-09-19 04:47] LABS: Alanine Aminotransferase 33 U/L (6-50); Alkaline Phosphatase 339 U/L (38-126); Anion Gap 12 mmol/L (8-16); Aspartate Amino Transferase 58 U/L (17-59); Bilirubin,Total 1.2 mg/dL (0.2-1.3); Blood Urea Nitrogen 18 mg/dL (9-20); Calcium 8.4 mg/dL (8.4-10.2); Carbon Dioxide 20 mmol/L (22-30); Chloride 100 mmol/L (98-107); Estimated CRCL calculation 118 ml/min; Estimated Glomerular Filt Rate > 60; Glucose 135 mg/dL (65-110); Magnesium 1.7 mg/dL (1.6-2.3); Phosphorus 3.4 mg/dL (2.5-4.5); Potassium 3.2 mmol/L (3.4-5.0); Sodium 132 mmol/L (137-145)
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
[2023-09-19 09:20] LABS: Troponin I 0.038 ng/mL (0.000-0.034)
[2023-09-19] MEDS: DOXYCYCLINE HYCLATE 100 MG TABLET PO ×2 (09:34→21:25)
[2023-09-19] MEDS: ATORVASTATIN 40 MG TABLET PO (09:34)
[2023-09-19] MEDS: busPIRone HCL 2.5 MG TABLET PO ×2 (09:34→21:25)
[2023-09-19] MEDS: POTASSIUM CHLORIDE 20 MEQ ER TABLET PO ×4 (09:34→18:23)
[2023-09-19] MEDS: ENOXAPARIN 40 MG/0.4 ML SYRINGE SUB-Q (09:36)
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
[2023-09-19 12:22] LABS: Osmolality, Urine 457 mOsm/kg (50-1200)
[2023-09-19 13:22] LABS: Magnesium 1.4 mg/dL (1.6-2.3); Potassium 3.7 mmol/L (3.4-5.0)
[2023-09-19] MEDS: HYDROcodone/acetaminophen (*CRX) 5-325 MG TABLET 1 TAB PO (18:22)
[2023-09-19] MEDS: MAGNESIUM SULF 2 GM/WATER 50ML 2 GM/50 ML BAG IVPB (18:23)
[2023-09-19 21:24] LABS: Glucose Point of Care 197 mg/dl (65-105)
[2023-09-19] MEDS: SERTRALINE HCL 50 MG TABLET 150 MG PO (21:25)
[2023-09-19] MEDS: INSULIN GLARGINE (*BKC) 100 UNITS/ML 70 UNITS SUB-Q (21:26)
[2023-09-20] VITALS (11 sets, daily range): BP systolic 113–129; BP diastolic 67–81; PULSE 88–103; RESP 14–18; TEMP 36.6–37; O2SAT 92–100
[2023-09-20] MEDS: cefTRIAXone 2 GM/NS 100 ML 2 GM/100 ML BAG IVPB (00:32)
[2023-09-20 05:32] LABS: Basophils Absolute Auto 0.1 K/mm3 (0.0-0.1); Basophils Percent Auto 0.5 % (0.2-1.2); Eosinophils Absolute Auto 0.1 K/mm3 (0-0.3); Eosinophils Percent Auto 0.7 % (0-4.4); Hematocrit 34.3 % (42.0-52.0); Hemoglobin 11.2 g/dL (14.0-18.0); Immature Granulocyte Absolute 0.07 K/mm3 (0.00-0.031); Immature Granulocyte Percent A 0.7 % (0-0.5); Lymphocytes Absolute Auto 1.83 K/mm3 (0.9-3.2); Lymphocytes Percent Auto 17.6 % (18.3-44.2); Mean Corpuscular HGB Conc 32.7 g/dl (32-36); Mean Corpuscular Hemoglobin 29.6 pg (26-34); Mean Corpuscular Volume 90.5 fl (80-100); Mean Platelet Volume 10.9 fl (7.4-10.4); Monocytes Percent Auto 9.2 % (2.6-8.5); Neutrophils Absolute Auto 7.4 K/mm3 (1.3-6.7); Neutrophils Percent Auto 71.3 % (45.5-73.1); Platelet Count Result 408 k/mm3 (150-375); Red Blood Count 3.79 M/mm3 (4.6-6.20); Red Cell Distribution Width 15.9 % (11.5-14.5); White Blood Count 10.4 K/mm3 (4.5-10.0)
[2023-09-20 05:34] LABS: Albumin Level 2.9 g/dL (3.5-5.1); Anion Gap 9 mmol/L (8-16); Blood Urea Nitrogen 14 mg/dL (9-20); Calcium 8.3 mg/dL (8.4-10.2); Carbon Dioxide 22 mmol/L (22-30); Chloride 101 mmol/L (98-107); Estimated CRCL calculation 134 ml/min; Estimated Glomerular Filt Rate > 60; Glucose 114 mg/dL (65-110); Magnesium 1.7 mg/dL (1.6-2.3); Phosphorus 4.3 mg/dL (2.5-4.5); Potassium 3.4 mmol/L (3.4-5.0); Sodium 132 mmol/L (137-145)
[2023-09-20] MEDS: MAGNESIUM SULF 2 GM/WATER 50ML 2 GM/50 ML BAG IVPB (09:35)
[2023-09-20] MEDS: busPIRone HCL 2.5 MG TABLET PO (09:36)
[2023-09-20] MEDS: FUROSEMIDE INJ 40 MG/4 ML VIAL IV PUSH (09:36)
[2023-09-20] MEDS: ATORVASTATIN 40 MG TABLET PO (09:36)
[2023-09-20] MEDS: ENOXAPARIN 40 MG/0.4 ML SYRINGE SUB-Q (09:36)
[2023-09-20] MEDS: POTASSIUM CHLORIDE 20 MEQ ER TABLET PO ×2 (09:36)
[2023-09-20] MEDS: DOXYCYCLINE HYCLATE 100 MG TABLET PO (09:36)
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
--- NOTE | 2023-09-24 09:34 | PC.NURSE ---
Blood cultures are negative. Dr. Lavelle puente.
== END 2023-09-20 16:04 | disposition home or self-care (01) | DRG 135 ==
LOC: ANHED 18:31 → ANHIMU 22:45
PROVIDERS: Emergency Medicine; Internal Medicine Cardiovascular Disease; Physician Assistant; Admitting Provider Internal Medicine; Emergency Provider Student in an Organized Health Care Education/Training Program; PCP Family Medicine; Visit Provider Internal Medicine
DX: S22.42XA Multiple fractures of ribs, left side, initial encounter for closed fracture (principal); S26.19XA Other injury of heart without hemopericardium, initial encounter; N17.9 Acute kidney failure, unspecified; J18.9 Pneumonia, unspecified organism; E11.42 Type 2 diabetes mellitus with diabetic polyneuropathy; E86.0 Dehydration; Y04.2XXA Assault by strike against or bumped into by another person, initial encounter; L97.519 Non-pressure chronic ulcer of other part of right foot with unspecified severity; E11.621 Type 2 diabetes mellitus with foot ulcer; R79.89 Other specified abnormal findings of blood chemistry; I10 Essential (primary) hypertension; E87.6 Hypokalemia; E87.8 Other disorders of electrolyte and fluid balance, not elsewhere classified; E11.65 Type 2 diabetes mellitus with hyperglycemia; E78.5 Hyperlipidemia, unspecified; F17.210 Nicotine dependence, cigarettes, uncomplicated; F41.8 Other specified anxiety disorders; I34.0 Nonrheumatic mitral (valve) insufficiency; J43.9 Emphysema, unspecified; R94.31 Abnormal electrocardiogram [ECG] [EKG]; Z79.4 Long term (current) use of insulin; Z79.84 Long term (current) use of oral hypoglycemic drugs; Z91.51 Personal history of suicidal behavior; Z91.148 Patient's other noncompliance with medication regimen for other reason
CPT/HCPCS: 36415; 36600; 71045; 71046; 71260; 74177; 80053; 80069; 82375; 82570; 82805; 82948; 83050; 83690; 83735; 83935; 84100; 84132; 84300; 84443; 84484; 85025; 85610; 85652; 85730; 86140; 87040; 87641; 93005; 96365; 96366; 96367; 96368; 96375; 99285; A9270; C8929; G0378; G0379; J0456; J0696; J1650; J1815; J1940; J3370; J3475; J3480; J7030; J7040; Q9957; Q9967

== ENCOUNTER 2023-09-28 04:22 | Inpatient (IN) | payer OTHER, SELFPAY ==
[2023-09-28] VITALS (40 sets, daily range): BP systolic 73–150; BP diastolic 55–91; PULSE 92–124; RESP 20–40; TEMP 35.5–37; O2SAT 66–100; BMI 29.0
--- NOTE | 2023-09-28 | ECHO_ITS ---
Patient Info Name: Robert Dickson Age: 42 years : 1980 Gender: Male Ht: 74 in Wt: 220 lbs BSA: 2.30 m2 BP: 126 / 75 mmHg Heart Rhythm: Tachycardia Technical Quality: Fair Exam Date: 09/28/2023 8:12 AM Exam Location: Echo Lab Patient Status: Inpatient Admit Date: 09/28/2023 Staff Ordering Physician: Hong Hermosillo MD Tipple Supervisor: Suzie Rodgers RDCS Attending Provider: Gregory Moore MD Exam Type: CA echo dop color flow w con Study Info Indications - Pericardial effusion, MR Complete two-dimensional, color flow and Doppler transthoracic echocardiogram is performed with contrast to opacify the left ventricle and to improve the deliniation of the left ventricle endocardial borders. Contrast/Agitated Saline Contrast/Ag. Saline: Definity Amount: 2.00 ml Administered By: Suzie Rodgers RDCS Existing IV Access: Yes IV Access Condition: patent with no signs of infiltration Summary 1. There are no wall motion abnormalities. 2. Left ventricular chamber dimension is normal. 3. Left ventricular systolic function is hyperdynamic, estimated at >70%. 4. There is mildly increased left ventricular wall thickness. 5. The left ventricular diastolic function is normal. 6. Left atrial chamber dimension is mildly enlarged. 7. The mitral valve has thickened leaflets. 8. There is mild mitral valve regurgitation. 9. There is mild tricuspid valve regurgitation. 10. Mild pulmonary hypertension, estimated pulmonary arterial systolic pressure is 42 mmHg. 11. There is increased echogenicity within the pericardium which appears organized on the epicardial surface. 12. There is moderate to large pericardial effusion. 13. Pleural effusion is also seen. 14. Dilated inferior vena cava with <50% collapse upon inspiration consistent with elevated right atrial pressure, 20 mmHg. Left Ventricle There are no wall motion abnormalities. Left ventricular chamber dimension is normal. Left ventricular systolic function is hyperdynamic, estimated at >70%. There is mildly increased left ventricular wall thickness. The left ventricular diastolic function is normal. Right Ventricle Right ventricular chamber dimension is normal. Right ventricular systolic function is normal. Left Atria Left atrial chamber dimension is mildly enlarged. Right Atria Right atrial chamber dimension is normal. Atrial Septum Intact interatrial septum visualized by color flow imaging. Aortic Valve The aortic valve is trileaflet. There is mild aortic valve sclerosis. There is no aortic valve stenosis. There is trace aortic valve regurgitation. Pulmonic Valve The pulmonic valve is normal. There is no pulmonic valve stenosis. There is trace pulmonic regurgitation. Mitral Valve The mitral valve has thickened leaflets. There is no mitral valve stenosis. There is mild mitral valve regurgitation. Tricuspid Valve The tricuspid valve leaflets are normal. There is no significant tricuspid valve stenosis. There is mild tricuspid valve regurgitation. Mild pulmonary hypertension, estimated pulmonary arterial systolic pressure is 42 mmHg. Pericardium/Pleural There is increased echogenicity within the pericardium which appears organized on the epicardial surface. There is moderate to large pericardial effusion. Pleural effusion is also seen. Inferior Vena Cava Dilated inferior vena cava with <50% collapse upon inspiration consistent with elevated right atrial pressure, 20 mmHg. Aorta The aortic root size at the sinus of Valsalva i
--- NOTE | ~2023-09-28 | XR_ITS ---
[id number] 09/28/2023 15:55 Indication: Status post thoracentesis. Procedure: AP portable chest Comparison: 09/28/2023 Findings: Interval placement of left-sided chest tube. NG tube in the stomach. Endotracheal tube tip approximately 3.4 cm above the natalia. Diffuse bilateral airspace disease. Small pleural effusions. Impression: 1: Diffuse bilateral airspace disease which may represent pneumonia and/or edema. 2: Small pleural effusions with interval placement of pigtail catheter in the left thorax. Reviewed, dictated and finalized at location B. LSIOR MACHINE TENDER Impression: 1: Diffuse bilateral airspace disease which may represent pneumonia and/or sadia a. 2: Small pleural effusions with interval placement of pigtail catheter in the l eft thorax.
--- NOTE | ~2023-09-28 | US_ITS ---
EXAMINATION: US thoracentesis DATE: 09/28/2023 15:08 INDICATION: Large right pleural effusion TECHNIQUE: The procedure and its risks and benefits were discussed with the patient. Potential risks discussed included bleeding, infection, and pneumothorax. The patient understood the risks and agreed to proceed. The skin was prepped and draped in sterile fashion. 1% lidocaine was used for local anes thesia. Under ultrasound guidance, a 5 Fr catheter with trochar was advanced into the large right ple ural effusion. Fluid was aspirated. The catheter was removed, and a dressing was applied. There were no immediate complications. FINDINGS: Ultrasound images demonstrate a large right pleural effusion and the catheter within the fluid. IMPRESSION: 1. Successful ultrasound-guided thoracentesis yielding 1000 mL of clear zaire-colored fluid. Reviewed, dictated and finalized at location A. STRIAL PSYCHOLOGY PROFESSOR IMPRESSION: 1. Successful ultrasound-guided thoracentesis yielding 1000 mL of clear zaire- colored fluid.
--- NOTE | ~2023-09-28 | XR_ITS ---
EXAMINATION: XR chest ET placement DATE: 09/28/2023 06:16 INDICATION: Intubation. TECHNIQUE: A single frontal view of the chest was obtained. COMPARISON: Chest single view at 4:41 AM FINDINGS: There are airspace opacities in all lung zones bilaterally with a perihilar and upper lung predominance. There are small pleural effusions. No pneumothorax. The heart size is normal. The endot glen tube tip is 2.1 cm above the natalia. The nasogastric tube tip is beyond the inferior margin o f the radiograph, but at least to the stomach. IMPRESSION: 1. Severe diffuse lung disease with worsening from 4:41 AM, consistent with pulmonary edema versus pn eumonia. 2. Small pleural effusions. Reviewed, dictated and finalized at location E. AL EQUIPMENT MECHANIC IMPRESSION: 1. Severe diffuse lung disease with worsening from 4:41 AM, consistent with pul monary edema versus pneumonia. 2. Small pleural effusions.
--- NOTE | ~2023-09-28 | XR_ITS ---
EXAMINATION: XR chest 1V portable DATE: 09/28/2023 10:55 INDICATION: Respiratory distress. TECHNIQUE: A single frontal view of the chest was obtained. COMPARISON: Chest single view at 5:35 AM FINDINGS: The patient is rotated to his left. There are airspace opacities in all lung zones bilatera lly, left worse than right. There is a small left pleural effusion. No pneumothorax. The heart size i s normal. The endotracheal tube tip is 2.1 cm above the natalia. A left upper extremity peripherally i nserted central venous catheter (PICC) is seen with tip at the superior cavoatrial junction. The naso gastric tube tip is beyond the inferior margin of the radiograph, but at least to the stomach. IMPRESSION: 1. Diffuse lung disease with improvement in the upper lobes and worsening in left lower lobe, consist ent with pulmonary edema versus pneumonia. 2. Small left pleural effusion. Reviewed, dictated and finalized at location E. NDING PSYCHIATRIST IMPRESSION: 1. Diffuse lung disease with improvement in the upper lobes and worsening in le ft lower lobe, consistent with pulmonary edema versus pneumonia. 2. Small left pleural effusion.
--- NOTE | ~2023-09-28 | XR_ITS ---
IMPRESSION: 1. Worsened severe diffuse lung disease, consistent with pulmonary edema versus pneumonia. 2. Small pleural effusions. EXAMINATION: XR chest 1V portable DATE: 09/28/2023 04:59 INDICATION: Chest pain. Respiratory distress. TECHNIQUE: A single frontal view of the chest was obtained. COMPARISON: Chest single view 09/20/2023 FINDINGS: There are airspace opacities in all lung zones bilaterally. There are small pleural effusio ns. No pneumothorax. The heart size is normal. IMPRESSION: 1. Worsened severe diffuse lung disease, consistent with pulmonary edema versus pneumonia. 2. Small pleural effusions. Reviewed, dictated and finalized at location E. [facility]
--- NOTE | ~2023-09-28 | US_ITS ---
EXAMINATION: US guide abscess drainage DATE: 09/28/2023 15:13 INDICATION: Acute cholecystitis TECHNIQUE: The procedure including the risks and benefits was discussed with the patient's Diann howard. Risks discussed included bleeding including bleeding and infection. Oral and written consent were obtained. The patient was confirmed to be receiving appropriate antibiotic coverage. The skin left u pper quadrant of the abdomen and the left pectoral anterior chest was prepped and draped in usual jose rile fashion. Attention was first turned to the left upper quadrant abscess. Utilizing ultrasound kendall dance, an anesthetic was administered with 1% lidocaine subcutaneously and along the track to the wal l of the abscess. An 18-gauge trochar needle was advanced into the fluid collection with ultrasound g uidance. The inner stylette was removed and a J-wire advanced into the fluid collection with position confirmed by ultrasound. Utilizing Seldinger technique the needle was removed over the wire and the tract serially dilated to 10 Kinyarwanda. A 12 Fr catheter was inserted over the wire into the fluid colle ction and the loop formed and locked with position confirmed by ultrasound. 20 mL of purulent appeari ng opaque long-colored fluid was aspirated and sent to the lab for Gram stain and cultures. The cathet er was stitched to the skin with suture. Anabiotic ligament and a sterile dressing were applied. Attention was then turned to the more cephalad left anterior chest wall abscess cavity. 1% lidocaine was administered subcutaneously along the tract to the wall of the abscess with ultrasound guidance. New needles, dilators and wire were utilized. An 18-gauge trochar needle was advanced into the fluid collection with ultrasound guidance. The inner stylette was removed and a J-wire advanced into the fl uid collection with position confirmed by ultrasound. Utilizing Seldinger technique the needle was re moved over the wire and the tract serially dilated to 10 Kinyarwanda. A 10 Fr catheter was inserted over t he wire into the fluid collection and the loop formed and locked with position confirmed by ultrasoun d. 10 mL of purulent appearing opaque long-colored fluid was aspirated and sent to the lab for Gram st ain and cultures. The catheter was stitched to the skin with suture. Anabiotic ligament and a sterile dressing were applied. Both catheters were then attached to suction drainage and was draining additi onal purulent appearing fluid at the conclusion of the procedure. There were no immediate complicatio ns. FINDINGS: Large complex fluid collections in the left pectoral anterior chest wall and in the anterio r abdominal wall of the left upper quadrant. Subsequent images demonstrate axis of both fluid collect ions by percutaneous needles and subsequent placement of pigtail percutaneous abscess drains into eac h collection. IMPRESSION: 1. Successful ultrasound-guided percutaneous abscess drainage tube placement into a left upper quadra nt anterior abdominal wall abscess. 2. Successful ultrasound-guided percutaneous abscess drainage tube placement into a left pectoral ant erior chest wall abscess. 3. Fluid obtained from each abscess cavity was sent to the lab for Gram stain and cultures. Reviewed, dictated and finalized at location A. MATED CUTTING MACHINE OPERATOR IMPRESSION: 1. Successful ultrasound-guided percutaneous abscess drainage tube placement in to a left upper quadrant anterior abdominal wall abscess. 2. Successful ultrasound-guided percutaneous abscess drainage tube placement in to a left pectoral anterior chest wall abscess. 3. Fluid obtained from each abscess cavity was sent to the lab for Gram stain a nd cultures.
--- NOTE | ~2023-09-28 | XR_ITS ---
EXAMINATION: XR abdomen gastric tube insert DATE: 09/28/2023 06:16 INDICATION: Nasogastric tube placement. TECHNIQUE: A supine view of the abdomen was obtained. COMPARISON: None. FINDINGS: There is a paucity of bowel gas. There are no dilated loops of bowel. The nasogastric tube tip is in the stomach. IMPRESSION: 1. Nasogastric tube tip in the stomach. Reviewed, dictated and finalized at location E. ION MECHANIC APPRENTICE
--- NOTE | ~2023-09-28 | CT_ITS ---
EXAMINATION: CT chest abdomen pelvis wo con DATE: 09/28/2023 11:32 INDICATION: Shortness of breath. Chest pain. Sepsis. TECHNIQUE: Computed tomography (CT) of the chest, abdomen, and pelvis was performed without intraveno us contrast. Automated exposure control and iterative reconstruction technique were employed. The dos e-length product was 2011.40 mGy-cm. COMPARISON: CT 09/17/2023 FINDINGS: CHEST CT: There are airspace opacities, groundglass opacities, and crazy paving in all lobes, worst in the uppe r lobes, left worse than right. There is dependent passive atelectasis bilaterally. There are moderat e-sized pleural effusions. The heart size is normal. There is a moderate-sized pericardial effusion. Pericardial thickening is noted. There are coronary artery calcifications. A left upper extremity per ipherally inserted central venous catheter (PICC) is seen with tip at the superior cavoatrial junctio n. The endotracheal tube tip is in expected position above the natalia. The nasogastric tube tip is in the stomach. There are fractures of anterior left fourth and fifth ribs. There is a fluid collection in left anterior and left lateral body wall including around the rib fractures. The collection measu res 12.5 x 3.5 x 26.7 cm. ABDOMEN/PELVIS CT: The liver, gallbladder, spleen, pancreas, adrenal glands, and left kidney are normal. There is a 9 mm stone in right kidney. There are no dilated loops of bowel. The appendix is normal. Aortic atheroscl erosis is noted. There are no pathologically enlarged lymph nodes. There is no free intraperitoneal f luid. The bladder is decompressed by Tenorio catheter. There is moderate lumbar spondylosis. IMPRESSION: 1. Diffuse lung disease, consistent with pulmonary edema versus pneumonia. 2. Moderate-sized pleural effusions. 3. Moderate-sized pericardial effusion with pericardial thickening, likely an exudate, improved from 09/17/2023. 4. Large fluid collection in left anterior and left lateral body wall with worsening from 09/17/2023, likely a combination of hematoma and abscess. Ultrasound-guided drain placement is recommended. I dis cussed this finding with Dr. Hermosillo. Reviewed, dictated and finalized at location E. S AND MERCHANDISING REPRESENTATIVE IMPRESSION: 1. Diffuse lung disease, consistent with pulmonary edema versus pneumonia. 2. Moderate-sized pleural effusions. 3. Moderate-sized pericardial effusion with pericardial thickening, likely an e xudate, improved from 09/17/2023. 4. Large fluid collection in left anterior and left lateral body wall with wors ening from 09/17/2023, likely a combination of hematoma and abscess. Ultrasound- guided drain placement is recommended. I discussed this finding with Dr. Hermosillo.
--- NOTE | 2023-09-28 04:34 | ECG_ITS ---
Measurements Intervals [place] Rate: 119 P: OR: 0 QRS: 57 QRSD: 105 T: 40 QT: 325 QTc: 458 Interpretive Statements SINUS TACHYCARDIA ATRIAL COUPLETS IN PATTERN OF BIGEMINY NONSPECIFIC ST & T-WAVE ABNORMALITY- DIFFUSE LEADS BASELINE ARTIFACT- I, II, III, AVF ABNORMAL ECG COMPARED TO ECG 09/18/2023 16:22:53 SINUS TACHYCARDIA NOW PRESENT ATRIAL COUPLETS NOW PRESENT Electronically Signed On 09-28-2023 6:23:51 WIRE BENDER HAND by Juan Jose Villegas D.O.
[2023-09-28 04:48] LABS: Glucose Point of Care 345 mg/dl (65-105)
[2023-09-28 05:00] LABS: Basophils Absolute Auto 0.1 K/mm3 (0.0-0.1); Basophils Percent Auto 0.3 % (0.2-1.2); Hematocrit 40.6 % (42.0-52.0); Hemoglobin 12.8 g/dL (14.0-18.0); Immature Granulocyte Absolute 0.12 K/mm3 (0.00-0.031); Immature Granulocyte Percent A 0.7 % (0-0.5); Lymphocytes Absolute Auto 1.03 K/mm3 (0.9-3.2); Lymphocytes Percent Auto 6.1 % (18.3-44.2); Mean Corpuscular HGB Conc 31.5 g/dl (32-36); Mean Corpuscular Hemoglobin 29.4 pg (26-34); Mean Corpuscular Volume 93.3 fl (80-100); Mean Platelet Volume 11.2 fl (7.4-10.4); Monocytes Absolute Auto 1.1 K/mm3 (0.1-0.6); Monocytes Percent Auto 6.4 % (2.6-8.5); Neutrophils Absolute Auto 14.6 K/mm3 (1.3-6.7); Neutrophils Percent Auto 86.5 % (45.5-73.1); Platelet Count Result 476 k/mm3 (150-375); Red Blood Count 4.35 M/mm3 (4.6-6.20); Red Cell Distribution Width 14.9 % (11.5-14.5); White Blood Count 16.9 K/mm3 (4.5-10.0)
[2023-09-28 05:10] LABS: Ethanol < 10 mg/dL (<10)
[2023-09-28 05:11] LABS: Alanine Aminotransferase 41 U/L (6-50); Albumin Level 3.5 g/dL (3.5-5.1); Alkaline Phosphatase 224 U/L (38-126); Anion Gap 16 mmol/L (8-16); Aspartate Amino Transferase 46 U/L (17-59); Bilirubin,Total 0.8 mg/dL (0.2-1.3); Blood Urea Nitrogen 17 mg/dL (9-20); Carbon Dioxide 17 mmol/L (22-30); Chloride 95 mmol/L (98-107); Estimated CRCL calculation 118 ml/min; Estimated Glomerular Filt Rate > 60; Glucose 384 mg/dL (65-110); Sodium 128 mmol/L (137-145)
--- NOTE | 2023-09-28 05:11 | PC.NURSE ---
EDP Dr. Galeana made medical decision to intubate pt due to oxygen saturation being 86% on bipap while maxed out on bipap settings . Pt vitals at 0512 were 115 heart rate, 84% on bipap, 34 RR, and 126/94. At 0515, 20 of etomidate was given. Vitals were 111 Heart rate, 78% bmv, 31 RR, and 131/76. 100 of Succ was given at 0519. Oral airway inserted at 0520. Pt vitals were 114HR, 50 bmv/ oral airway, 38RR, and 131/76. 8.0 and 26 at the lip for intubation. Pt vitals at 0523 were HR 118, 76% bvm/ intubation, 18RR, and 145/117.
[2023-09-28 05:13] LABS: INR 1.5; Prothrombin Time 19.1 Seconds (11.1-14.7)
[2023-09-28] MEDS: ETOMIDATE 20 MG/10 ML AMPUL IV PUSH (05:15)
[2023-09-28 05:18] LABS: Lactic Acid Reflex 6.2 mmol/L (0.7-2.0)
[2023-09-28] MEDS: SUCCINYLCHOLINE CHLORIDE 20 MG/ML 10 ML VIAL 100 MG IV PUSH (05:20)
[2023-09-28 05:22] LABS: NT Pro B Type Natriuretic Pept 5060 pg/mL (19.9-100); Troponin I 0.012 ng/mL (0.000-0.034)
[2023-09-28 05:23] LABS: Add Urine Microscopic? YES; Appearance Urine Clear (Clear); Bacteria Urine None Seen /hpf; Bilirubin Urine Negative (Negative); Blood Urine 2+ (Negative); Color Urine Yellow (Yellow); Glucose Urine UA 3+ mg/dL (Negative); Hyaline Casts Urine Present /lpf; Ketones Urine Negative (Negative); Leukocyte Esterase Ur Negative LEU/UL (Negative); Need Manual Microscopic Reviewed; Nitrate Urine Negative (Negative); Protein Urine 2+ mg/dL (Negative); RBC Urine 0-2 /hpf (0-2); Specific Grav Ur 1.025 (1.001-1.035); Squamous Epithelial Cell Urine Occasional /hpf (Few); WBC Urine 0-5 /hpf; pH Urine 5.5 (5.0-9.0)
[2023-09-28 05:27] LABS: Amphetamine Screen Urine Negative (Negative); Barbiturate Screen Urine Negative (Negative); Benzodiazepines Screen Urine Positive (Negative); Cannabinoid Screen Urine Positive (Negative); Cocaine Screen Urine Negative (Negative); Methadone Screen Urine Negative (Negative); Opiate Screen Urine Negative (Negative); Phencyclidine Screen Urine Negative (Negative)
--- NOTE | 2023-09-28 05:28 | PC.NURSE ---
While inserting in OJ tube pt oxygen saturation while dropped to 32% while intubated and using BVM with help of respiratory. Pt was continued on BVM. Pt vitals at 0531 werre 112 HR, 100% on vent, 20 RR, and BP of 147/111.
[2023-09-28] MEDS: PROPOFOL IV EMULSION 100 ML 3 MG IV CONT (05:40)
[2023-09-28 05:52] LABS: D Dimer 4.13 ug/mL (<0.48)
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
[2023-09-28 06:07] LABS: Base Excess ABG -11.2 mEq/l (+/-2.0); Fractional Inspired Oxygen 100 %; HCO3 ABG 14.9 mEq/l (22.0-26.0); Oxygen Content ABG 13.7 %vol (16.0-22.0); PCO2 ABG 34.5 mmHg (35.0-45.0); PO2 ABG 51.5 mmHg (80.0-100.0); PO2 FiO2 Ratio Arterial Blood 0.51 %; Total Hemoglobin 12.9 g/dL (12.0-18.0)
[2023-09-28 06:09] LABS: Device VENTILATOR; Modified Allen's Test Pass; Oxyhemoglobin 75.5 % THb (90.0-100.0); Site Drawn RIGHT RADIAL; pH ABG 7.254 (7.350-7.450)
[2023-09-28 06:10] LABS: Arterial Blood Gas PEEP 10 cmH2O; Arterial Blood Gas Tidal Volume 480 ml; Arterial Blood Gas Vent Mode CMV; Arterial Blood Gas Ventilator rate 20 /MIN
--- NOTE | 2023-09-28 06:19 | PC.NURSE ---
upon insertion of cameron catheter pt core/ bladder temperature was 95.9. EDp Dr. Galeana made aware. Clyde Hugger was initiated and placed on low setting. Upon recheck of temperature, temperature was 97.5 Clyde Hugger was continued.
--- NOTE | 2023-09-28 06:21 | PCRCNOTE ---
abg was delayed due to emergent intubation procedure. MD puente
[2023-09-28 06:23] LABS: Oxygen Saturation ABG 81.4 % (95.0-100.0)
[2023-09-28] MEDS: PIPERACILLIN/TAZ 4.5G/NS 100ML 4.5 GM/100 ML BAG IVPB (06:26)
[2023-09-28 06:54] LABS: Triglycerides 93 mg/dL (<150)
[2023-09-28 07:26] LABS: Influenza A QL RT-PCR Negative (Negative); Influenza B QL RT-PCR Negative (Negative); RSV RNA, RT-PCR Negative (Negative); SARS-CoV-2 RNA PCR Negative (Negative)
[2023-09-28] MEDS: IPRATROPIUM BR 0.02% INH SOLN 0.5 MG/2.5 ML VIAL INHALATION ×2 (07:50→13:43)
[2023-09-28] MEDS: ALBUTEROL SULFATE NEB 2.5 MG/3 ML INH INHALATION ×2 (07:50→13:43)
[2023-09-28 07:56] LABS: Reflex Lactic Acid Yes or No Add Lactic
[2023-09-28] MEDS: CISATRACURIUM BESYLATE 20 MG/10 ML VIAL 15 MG IV PUSH (07:56)
[2023-09-28] MEDS: ROCURONIUM BROMIDE 50 MG/5 ML VIAL IV PUSH (07:56)
[2023-09-28] MEDS: FENTANYL 2,500MCG/NS250ML(*CRX 2,500 MCG/250 ML BAG IV CONT (07:57)
[2023-09-28] MEDS: CISATRACURIUM BESYLATE 200 MG in DEXTROSE 5% 80 ML 9 ML IV CONT (08:00)
[2023-09-28] MEDS: PERFLUTREN LIPID MICROSPHERES 1.5 ML VIAL DILUTED TO 10 ML TOTAL VOLUME IV PUSH (09:00)
[2023-09-28] MEDS: PROPOFOL IV EMULSION 100 ML 30 MG IV CONT ×2 (09:00→12:18)
[2023-09-28] MEDS: PANTOPRAZOLE SODIUM IV 40 MG VIAL IV PUSH (09:20)
[2023-09-28] MEDS: FUROSEMIDE INJ 100 MG/10 ML VIAL 80 MG IV PUSH (09:20)
[2023-09-28] MEDS: MINERAL OIL/WHITE PETROLATUM OINTMENT 1 APPLIC EACH EYE (09:20)
[2023-09-28] MEDS: ENOXAPARIN 40 MG/0.4 ML SYRINGE SUB-Q (09:21)
--- NOTE | 2023-09-28 09:25 | IVDEFINITY ---
Prior to administration of IV Definity the patient was educated on the risks and benefits of the imaging enhancing agent including potential adverse side effects. The patient verbalized understanding. Allergies were verified. No exclusion criteria were identified and at least one of the following inclusion criteria were met: 1) physician request, 2) patient technically difficult to image (per the [place] [employer]ocardi[employer] guidelines of two or more segments not discernable within the apical view), or 3) questionable left ventricular function. ?
[2023-09-28] MEDS: LIDOCAINE HCL 1% PF INJ 5 ML VIAL INFILTRATE (09:40)
[2023-09-28] MEDS: MEROPENEM 1 GM/NS 100 ML 1 GM/100 ML BAG IVPB ×2 (09:40→15:30)
--- NOTE | 2023-09-28 09:41 | WPDCNINT ---
Assessment and Plan Assessment and plan (1) Acute respiratory failure with hypoxemia: Code(s): J96.01 - Acute respiratory failure with hypoxia Status: Acute Assessment and Plan: Patient presented with hypoxia and chest x-ray showed severe bilateral lung disease consistent with pulmonary edema or pneumonia Chest x-ray appears more like pulmonary edema which would fit with patient's MR and bilateral pleural edema but patient does have objective signs of possible pneumonia. Patient also had pleural effusion Patient is now intubated severely hypoxic On my arrival I gave patient rocuronium and then with bag ventilation with PEEP valve patient's abdomen Continue propofol. Add fentanyl drip and will start Nimbex infusion Peep increased to 18. Rate is set at 20. I would volume 6 mL/kg ideal body weight at 450 mL. Will repeat ABG Checked CT chest once patient is more stable Lasix IV given be continued Echocardiogram has been ordered Empiric antibiotics in the form of vancomycin and meropenem Blood cultures and sputum culture are ordered and pending (2) Pulmonary edema: Code(s): J81.1 - Chronic pulmonary edema Status: Acute Assessment and Plan: Chest x-ray is suggestive of pulmonary. Patient also has bilateral pedal edema Last echo reviewed and showed moderate MR, solid dysfunction with normal EF. He also had a large pericardial effusion I have ordered a stat echo to evaluate his pericardial effusion report is pending. On my brief review while echo was being performed I do not see any large pericardial effusion but to see fibrin deposits in his pericardial space Lasix IV given (3) Sepsis: Code(s): A41.9 - Sepsis, unspecified organism Status: Acute Assessment and Plan: Patient meets criteria for sepsis with elevated WBC count, tachypnea and hypoxia Likely source is pneumonia Check cultures procalcitonin level urine Legionella and pneumococcal antigen Antibiotics as above Hemodynamically stable at this time and not requiring any vasopressors (4) Pneumonia: Qualifiers: Laterality: bilateral Lung location: unspecified part of lung Pneumonia type: due to unspecified organism Qualified Code(s): J18.9 - Pneumonia, unspecified organism Code(s): J18.9 - Pneumonia, unspecified organism Status: Acute Assessment and Plan: See above (5) QT prolongation: Code(s): R94.31 - Abnormal electrocardiogram [ECG] [EKG] Status: Acute Assessment and Plan: On EKG on last admission but appears to have improved on the EKG done in the ER (6) Pericardial effusion: Code(s): I31.39 - Other pericardial effusion (noninflammatory) Status: Acute Assessment and Plan: See above (7) Mitral regurgitation: Code(s): I34.0 - Nonrheumatic mitral (valve) insufficiency Status: Acute Assessment and Plan: See above (8) Diabetic foot ulcer: Code(s): E11.621 - Type 2 diabetes mellitus with foot ulcer; L97.509 - Non-pressure chronic ulcer of other part of unspecified foot with unspecified severity Status: Acute Assessment and Plan: Local wound care. Wounds do not appear infected Wound care nurse has been consulted (9) DM2 (diabetes mellitus, type 2): Qualifiers: Diabetes mellitus complication status: with other specified complication Diabetes mellitus manager child insulin use: unspecified manager child insulin use status Qualified Code(s): E11.69 - Type 2 diabetes mellitus with other specified complication Code(s): E11.9 - Type 2 diabetes mellitus without complications Status: Acute Assessment and Plan: Will start insulin (10) COPD (chronic obstructive pulmonary disease): Code(s): J44.9 - Chronic obstructive pulmonary disease, unspecified Status: Chronic Assessment and Plan: Bronchodilators Plan DVT prophylaxis -Lovenox Stress ulcer prophylaxis -Protonix Nutrition -
[2023-09-28 09:48] LABS: Glucose Point of Care 257 mg/dl (65-105)
[2023-09-28] MEDS: INSULIN ASPART (*BKC) 100 UNITS/ML SUB-Q (09:48)
[2023-09-28 09:51] LABS: Triglycerides 115 mg/dL (<150)
[2023-09-28 09:52] LABS: Hemoglobin A1C 9.3 % (<5.7)
[2023-09-28 09:54] LABS: Lactic Acid 1.9 mmol/L (0.7-2.0)
[2023-09-28 10:22] LABS: Procalcitonin 0.6 ng/mL
[2023-09-28 10:43] LABS: Alveolar/Arterial O2 Gradient 396.7 mmHg; Fractional Inspired Oxygen 80 %; Oxygen Content ABG 17.9 %vol (16.0-22.0); Oxygen Saturation ABG 97.5 % (95.0-100.0); Oxyhemoglobin 96.3 % THb (90.0-100.0); PCO2 ABG 55.2 mmHg (35.0-45.0); PO2 ABG 115.7 mmHg (80.0-100.0); PO2 FiO2 Ratio Arterial Blood 1.45 %; Total Hemoglobin 13.1 g/dL (12.0-18.0)
[2023-09-28 10:44] LABS: Arterial Blood Gas PEEP 18 cmH2O; Arterial Blood Gas Tidal Volume 450 ml; Arterial Blood Gas Vent Mode CMV; Arterial Blood Gas Ventilator rate 20 /MIN; Device VENTILATOR; Modified Allen's Test Pass; Site Drawn RIGHT RADIAL; pH ABG 7.238 (7.350-7.450)
[2023-09-28] MEDS: VANCOMYCIN 1,250 MG/NS 250 ML 1,250 MG/250 ML BAG 166.67 MG IVPB ×2 (11:46→11:47)
[2023-09-28 12:10] LABS: Albumin Level 3.2 g/dL (3.5-5.1); Lactate Dehydrogenase 287 U/L (120-246)
[2023-09-28] MEDS: NOREPINEPHRINE 8 MG/D5W 250 ML 8 MG/250 ML BAG 9.38 MG IV CONT (13:24)
[2023-09-28] MEDS: CENTRAL LINE FLUSH 10 ML IV PUSH (13:33)
[2023-09-28 13:36] LABS: Glucose Point of Care 169 mg/dl (65-105)
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
[2023-09-28 14:27] LABS: MRSA (PCR) NOT DETECTED (NOT DETECTE)
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
[2023-09-28 14:54] LABS: pH Pleural Fluid 7.359 (7.210-7.500)
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
[2023-09-28 15:47] LABS: Appearance Pleural Fluid Hazy (Clear); Color Pleural Fluid Yellow (Colorless); Lymphocytes Pleural Fluid 46 %; Mesothelial Cells Pleural Flui 4 %; Monocytes Pleural Fluid 3 %; Neutrophils Pleural Fluid 47 % (0-25); Nucleated Cell Pleural Fluid 361 /uL (0-1000); Pleural fluid source Pleural fluid; RBC Pleural Fluid 5000 /uL (0-0)
[2023-09-28] MEDS: DEXTROSE 50% 25 GM/50 ML SYRINGE IV PUSH (16:02)
[2023-09-28] MEDS: INSULIN HUMAN REGULAR (*BKC) 100 UNITS/ML 10 UNITS IV PUSH (16:03)
[2023-09-28 16:10] LABS: Anion Gap 8 mmol/L (8-16); Blood Urea Nitrogen 22 mg/dL (9-20); Carbon Dioxide 23 mmol/L (22-30); Chloride 98 mmol/L (98-107); Estimated CRCL calculation 81 ml/min; Estimated Glomerular Filt Rate > 60; Glucose 199 mg/dL (65-110); Potassium 5.6 mmol/L (3.4-5.0); Sodium 129 mmol/L (137-145)
[2023-09-30 20:54] LABS: LDH Pleural Fluid 149 U/L
[2023-10-02 20:52] LABS: Albumin Pleural Fluid 1.2 g/dL
== END 2023-09-28 16:40 | disposition short-term general hospital (02) | DRG 720 ==
LOC: ANHED 06:38 → ANHICU 11:23
PROVIDERS: Internal Medicine; Admitting Provider Internal Medicine; Emergency Provider Emergency Medicine; PCP Family Medicine; Visit Provider Family Medicine
DX: A41.9 Sepsis, unspecified organism (principal); J96.01 Acute respiratory failure with hypoxia; J18.9 Pneumonia, unspecified organism; I31.39 Other pericardial effusion (noninflammatory); J44.0 Chronic obstructive pulmonary disease with (acute) lower respiratory infection; J81.1 Chronic pulmonary edema; E11.40 Type 2 diabetes mellitus with diabetic neuropathy, unspecified; E87.1 Hypo-osmolality and hyponatremia; E11.621 Type 2 diabetes mellitus with foot ulcer; S22.42XD Multiple fractures of ribs, left side, subsequent encounter for fracture with routine healing; S30.1XXA Contusion of abdominal wall, initial encounter; S20.212A Contusion of left front wall of thorax, initial encounter; Y04.2XXD Assault by strike against or bumped into by another person, subsequent encounter; I10 Essential (primary) hypertension; I34.0 Nonrheumatic mitral (valve) insufficiency; E78.5 Hyperlipidemia, unspecified; R94.31 Abnormal electrocardiogram [ECG] [EKG]; F32.A Depression, unspecified; F17.210 Nicotine dependence, cigarettes, uncomplicated; F12.90 Cannabis use, unspecified, uncomplicated; F41.9 Anxiety disorder, unspecified; Z20.822 Contact with and (suspected) exposure to COVID-19; Z87.442 Personal history of urinary calculi
CPT/HCPCS: 10160; 31500; 32555; 36415; 36569; 36600; 71045; 71250; 74176; 80048; 80053; 80307; 81001; 82040; 82042; 82805; 82948; 83036; 83605; 83615; 83880; 83986; 84145; 84478; 84484; 85025; 85380; 85610; 87040; 87070; 87075; 87205; 87637; 87641; 89051; 93005; 94640; 96365; 99291; C1729; C1769; C8929; C9113; J0330; J1650; J1815; J1940; J2185; J2543; J2704; J3010; J3370; Q9957

== ENCOUNTER 2025-03-27 19:28 | Inpatient (IN) | payer OTHER, SELFPAY ==
[2025-03-27] VITALS (19 sets, daily range): BP systolic 152–215; BP diastolic 48–162; PULSE 83–103; RESP 16–26; TEMP 37.7–39.4; O2SAT 94–100
--- NOTE | ~2025-03-27 | US_ITS ---
EXAMINATION: US renal BI DATE: 03/30/2025 14:23 INDICATION: Acute renal insufficiency TECHNIQUE: Multiple ultrasound grayscale images of the kidneys were obtained. COMPARISON: None. FINDINGS: The right kidney measures 15.7 x 6.4 x 6.4 cm. The left kidney measures 15.1 x 6.9 x 6.6 cm. The kidn eys demonstrate normal echogenicity. There is no hydronephrosis in either kidney. No stones identifi ed. The bladder appears normal but is partially decompressed which limits sensitivity. IMPRESSION: 1. Normal kidneys without hydronephrosis. Reviewed, dictated and finalized at location A.
--- NOTE | ~2025-03-27 | XR_ITS ---
EXAM: XR foot LT min 3V DATE: 03/27/2025 23:15 HISTORY: 2nd toe infection? . COMPARISON: None available. FINDINGS: Normal mineralization. No fracture or dislocation. No lytic or blastic lesion. Mild scatte red degenerative changes. Achilles and plantar enthesopathy. Soft tissue swelling of the ankle and fo ot, second toe, and possibly great toe. Focal erosion in the tip of the second distal phalanx. No sub cutaneous gas or radiopaque foreign body detected. IMPRESSION: Osteomyelitis involving the tip of the left second distal phalanx. Reviewed, dictated and finalized at location K.
--- NOTE | ~2025-03-27 | CT_ITS ---
EXAMINATION: CT chest abdomen pelvis w con DATE: 03/27/2025 21:31 INDICATION: ams, sepsis w/u, lower abd pain, N/V . TECHNIQUE: Computed tomography (CT) of the chest, abdomen, and pelvis was performed with 100 mL Omnip aque-350 intravenous contrast. Automated exposure control and iterative reconstruction technique were employed. The dose-length product was 2098.89 mGy-cm. COMPARISON: 09/28/2023. FINDINGS: CHEST: Thoracic aorta: No significant dilation. No dissection. Lung parenchyma and airways: Mild septal thickening and fissural fluid. Centrilobular groundglass [place] in the bilateral lower lungs, greater on the left. Patent airways. Thoracic inlet, axillae and chest wall: 1.5 cm right thyroid nodule. Intact sternotomy wires. No axil marily lymphadenopathy. Mediastinum: No mass or lymphadenopathy. Heart and pericardium: Mitral valve replacement. Coronary artery calcifications: Mild. Pleura: No effusion or mass. Thoracic bones: No acute osseous finding in the chest. 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 ABDOMEN/PELVIS: Evaluation of the abdomen is limited by motion artifact and beam hardening from arm positioning. Liver: Normal. Biliary/Gallbladder: Distended gallbladder, without inflammatory change or stones. No bile duct dilat ion. Pancreas: Moderate atrophy Spleen: Normal. Adrenals:No mass. Kidneys: 14 mm nonobstructing calcification in the right lower pole. Punctate nonobstructing left mid pole calcifications. Dilated right renal pelvis, with mild wall hyperemia. No obstructing stone or ma ss detected. No left hydronephrosis. Moderate bilateral perinephric stranding. GI tract: No small or large bowel dilation. Mild diffuse colonic wall thickening. Normal appendix. Mesentery/Peritoneum: No ascites, mass, or free air. Retroperitoneum: No mass Atherosclerotic calcifications of intra-abdominal arterial vessels. Pelvis: Urinary bladder wall thickening, and a moderately distended urinary bladder. Minimal free pel frederic fluid. Small right hydrocele. Soft Tissues: Left femoral and inguinal lymphadenopathy. Small uncomplicated fat-containing umbilical hernia. Abdominopelvic bones: No acute osseous finding in the abdomen/pelvis. IMPRESSION: Pulmonary opacities likely representing pulmonary edema. Infection, aspiration, or other pneumonitis should remain in the differential. 1.5 cm right thyroid nodule, recommend nonemergent, outpatient thyroid ultrasound for further charact erization. Gallbladder hydrops as can be seen with fasting or obstruction. Correlate with biliary labs. No gallb ladder inflammatory changes or stones. Dilated right renal pelvis with mild urothelial enhancement, may represent some degree of UPJ obstruc tion and/or pyelitis. Mild diffuse colonic wall thickening, as can be seen with colitis. Urinary bladder wall thickening may be secondary to incomplete distention or cystitis. Left femoral and inguinal lymphadenopathy. Reviewed, dictated and finalized at location K. IMPRESSION: Pulmonary opacities likely representing pulmonary edema. Infection, aspiration, or other pneumonitis should remain in the differential. 1.5 cm right thyroid nodule, recommend nonemergent, outpatient thyroid ultrasou nd for further characterization. Gallbladder hydrops as can be seen with fasting or obstruction. Correlate with biliary labs. No gallbladder inflammatory changes or stones. Dilated right renal pelvis with mild urothelial enhancement, may represent some degree of UPJ obstruction and/or pyelitis. Mild diffuse colonic wall thickening, as can be seen with colitis. Urinary bladder wall thickening may be secondary to incomplete distention or cy stitis. Left femoral and inguinal lymphadenopathy.
--- NOTE | ~2025-03-27 | CT_ITS ---
EXAMINATION: CT brain wo con DATE: 03/27/2025 21:26 INDICATION: ams . TECHNIQUE: Computed tomography (CT) of the head was performed without intravenous contrast. The mA wa s adjusted according to patient size. Iterative reconstruction technique was employed. The dose-lengt h product was 681.00 mGy-cm. COMPARISON: 03/23/2023. FINDINGS: No acute intracranial hemorrhage or extra-axial fluid collection. No hydrocephalus, mass, or herniation. No acute ischemic infarct. Unremarkable dural venous sinus attenuation. No acute osseous abnormality. Trace right mastoid fluid, mild ethmoid mucosal thickening, small retention cyst/polyp in the left fr ontal sinus, the remaining aerated spaces are clear. Focal encephalomalacia with dystrophic calcification in the right parietal lobe. IMPRESSION: No acute intracranial process. Reviewed, dictated and finalized at location K.
--- NOTE | ~2025-03-27 | US_ITS ---
EXAM: ABDOMEN ULTRASOUND HISTORY: Abnormal CT, right upper quadrant pain COMPARISON: Reference is made to a contrast-enhanced CT examination of the chest abdomen and pelvis p erformed approximately 16 hours earlier. FINDINGS: LIVER: The liver is unremarkable in echogenicity and markedly increased in size measuring 21 cm in lo ngitudinal dimension. The portal vein is patent, demonstrating phasic, hepatopedal flow. GALLBLADDER: The gallbladder is significantly distended measuring 11.5 x 5.5 cm. No stones are identified within the gallbladder, which is otherwise unremarkable. No gallbladder wall thickening or pericholecystic fluid. BILE DUCTS: Common bile duct is not distended and measures 4 mm. PANCREAS: Limited evaluation of the pancreas secondary to overlying bowel gas VASCULATURE : The IVC is patent. IMPRESSION: Hepatomegaly. Gallbladder hydrops. No additional abnormalities detected within the gallbladder. Reviewed, dictated and finalized at location A.
--- OUTSIDE RECORDS SUMMARY | 2025-03-27 19:43 | XMS_ITS | Data Portability ---
Author Organization [place] [facility] [employer], Main Office Address [address] [place] [address] Assessment Encounter Date Assessment Date Assessment LastModified by Organization Details LastModified Time 06/10/2023 06/10/2023 This note is dictated and transcribed by [employer]. Route [employer] variances may occur. Despite proofreading, typographical errors may occur. Not available 06/10/2023 18:00:03 09/09/2023 09/09/2023 This note is dictated and transcribed by [employer]. [employer] variances may occur. Despite proofreading, typographical errors may occur. Not available 09/17/2023 12:37:06 09/23/2023 09/23/2023 This note is dictated and transcribed by [employer]. [employer] variances may occur. Despite proofreading, typographical errors may occur. Not available 09/23/2023 16:35:51 Plan of Treatment Reminders Order Date Submit Date Provider Last Modified By Organization Details Last Modified Time Details Appointments None record ed. Lab None record ed. Referral None record ed. Procedures None record ed. Surgeries None record ed. Imaging None record ed. Medication Orders None record ed. Patient TargetsNo targets recorded. Patient InstructionsNo instructions recorded. Reason for Referral None Reported. Results Created Date Observation Date Name Description Value Unit Range Abnormal Flag Note LastModifiedBy Organization Detail LastModifiedTime 08/24/2008/24/2023 imagi ng inter preta tion No observ ation record ed. [id number] [address], [place], [address], 09/02/2023 10:41:20 09/01/20 23 09/01/2023 imagi ng inter preta tion No observ ation record ed. [email or web address] [place] [address] [address], [place], [address], 09/02/2023 11:03:27 09/01/20 23 09/01/2023 imagi ng inter preta tion No observ ation record ed. [email or web address], [place], [address], 09/02/2023 11:04:01 09/06/20 23 09/06/2023 CT, foot, w/ contr ast No observ ation record ed. [address], [place], [address], 03/22/2024 11:07:09 09/16/2009/16/2023 XR, chest , 2 view No observ ation record ed. [email or web address] [place], [place] [address]e [facility], [place], [address], 03/22/2024 11:17:18 09/17/20 23 09/17/2023 , [facility] ardio gram No observ ation record ed. [email or web address] [place] [address] [address], [place], [address], 03/22/2024 11:17:28 09/17/20 23 09/17/2023 CT, chest + abdom en, w/ contr ast No observ ation record ed. [email or web address] [place] [address] [address], [place], [address], 03/22/2024 11:17:49 09/19/20 23 09/18/2023 XR, chest , 1 view No observ ation record ed. [email or web address] [address], [place], [address], 03/22/2024 11:18:00 09/20/20 23 09/20/2023 XR, chest , 1 view No observ ation record ed. [email or web address] [place] [address] [address], [place], [address], 03/22/2024 11:18:18 09/28/20 23 09/28/2023 XR, chest No observ ation record ed. [address] [address], [place], [address], 03/21/2024 15:02:57 09/28/20 23 09/28/2023 XR, chest No observ ation record ed. [address] [address], [place], [address], 03/21/2024 15:03:06 09/28/20 23 09/28/2023 XR, abdom en No observ ation record ed. [address] [address], [place], [address], 03/21/2024 15:03:28 09/28/20 23 09/28/2023 [place], [facility] ardio gram No observ ation record ed. [address] [address], [place], [address], 03/21/2024 15:03:44 09/28/20 23 09/28/2023 XR, chest , 1 view No observ ation record ed. [address] [address], [place], [address], 03/21/2024 15:03:58 09/28/20 23 09/28/2023 CT, abdom en + pelvi s, w/o contr ast No observ ation record ed. [address] [address], [place], [address], 03/21/2024 15:04:15 09/28/20 23 09/28/2023 XR, chest , 1 view No observ ation record ed. [address] [address], [place], [address], 03/21/2024 15:04:27 09/28/20 23 09/28/2023 beck guerin sis (PROC ) No observ ation record ed. [email or web address] [address], [place], [address], 03/21/2024 15:04:53 09/28/20 23 09/28/2023 XR, chest , 1 view No observ ation record ed. [email or web address] [address], [place], [address], 03/21/2024 15:05:02 09/28/20 23 09/28/2023 biops y, absce ss (PROC ) No observ ation record ed. [id number] [address], [place], [address], 03/21/2024 15:07:20 Result Notes None recorded. Problems Name Problem SNOMED Code Status Onset Date Resolution Date Notes Provider Name and Address Organization Details Recorded Time Lumbar radiculopa thy 371843781 Active Not Available [facility] 4 01:06:03 Hyperchole sterolemia 05937471 Active Not Available [employer] 4 01:06:03 Peripheral neuropathy due to type 2 diabetes mellitus 7123336223840 Active 2020 Not Available [facility] 4 01:06:03 Dry skin 51254577 Active 2020 Not Available [facility] 4 01:06:03 On examinatio n - skin fissures present Active 2020 Not Available [facility] 4 01:06:03 Adjustment disorder 56928252 Active Not Available [facility] 4 01:06:03 Spinal stenosis of lumbar region 57394148 Active Not Available [facility] 4 01:06:03 Abdominal pain 56887946 Active Not Available [facility] 4 01:06:04 Gastroesop hageal reflux disease 117413206 Active Not Available [facility] 4 01:06:04 Lumbar spondylosi s 727195178 Active Not Available [facility] 4 01:06:04 Shoulder joint pain 890005305 Active Not Available [facility] 4 01:06:04 Low back pain 977460422 Active Not Available [facility] 4 01:06:04 Cyst of skin 281855514 Active Not Available [facility] 4 01:06:04 Hypertrigl yceridemia 861848630 Active Not Available [facility] 4 01:06:04 Knee pain Active Not Available [facility] 4 01:06:04 Laceration - injury 097918432 Active Not Available [facility] 4 01:06:04 Type 2 diabetes mellitus without complicati on 064437574 Active Not Available [facility] 4 01:06:04 Bronchitis 00799496 Active Not Available [facility] 4 01:06:04 Blood in urine 74255788 Active Not Available [facility] 4 01:06:04 Vitamin D deficiency 02980899 Active Not Available [facility] 4 01:06:04 Depressive disorder 57570435 Active Not Available [facility] 4 01:06:04 Misuses drugs 515696196 Active 2019 Not Available [facility] 4 01:06:04 Hypertensi ve disorder 84149707 Active Not Available [facility] 4 01:06:04 Neuropathy 961432278 Active 2016 Not Available [facility] 4 01:06:04 Disorder of rotator cuff 590303272 Active Not Available [facility] 4 01:06:04 Diabetic peripheral neuropathy 591014260 Active 2019 Not Available [facility] 4 01:06:04 Eczema 94064288 Active Not Available [facility] 4 01:06:04 Viral syndrome 970860977 Active Not Available [facility] 4 01:06:04 Pain of shoulder region 47616222 Active Not Available [facility] 4 01:06:04 Foot pain 42891104 Active 2020 Not Available [facility] 4 01:06:04 Anxiety 83687845 Active Not Available [facility] 4 01:06:04 Cough 13456590 Active Not Available [facility] 4 01:06:04 Upper respirator y infection 69060707 Active Not Available [facility] 4 01:06:04 Hyperlipid emia 40388088 Active Not Available [facility] 4 01:06:04 Disorder of bursa of shoulder region 35542879 Active Not Available [facility] 4 01:06:04 Wheezing 81257431 Active Not Available [facility] 4 01:06:04 Pain of joint 39437721 Active Not Available [facility] 4 01:06:04 Pruritic rash 17067063 Active Not Available [facility] 4 01:06:04 Hypercalce shakira 72322646 Active Not Available [facility] 4 01:06:04 Muscle pain 76885950 Active Not Available [facility] 4 01:06:04 Diabetes mellitus 31451678 Active Not Available [facility] 4 01:06:04 Hyperglyce shakira 68238222 Active Not Available [facility] 4 01:06:04 Neck pain 75633127 Active Not Available [facility] 4 01:06:04 Skin lesion 41176130 Active Not Available [facility] 4 01:06:04 Kidney stone 47120568 Active Not Available [facility] 4 01:06:04 Insomnia 061774608 Active 2022 Not Available [facility] 4 01:06:03 Hernia of anterior abdominal wall 240542806 Active 2022 Not Available [facility] 4 01:06:04 Ulcer of right foot due to type 2 diabetes mellitus 0290698718602 9102 Active 2022 Not Available [facility] 4 01:06:03 Diabetic foot ulcer 078570508 Active 2022 Not Available [facility] 4 01:06:04 Diabetic foot ulcer 485721290 Active 2022 Not Available [facility] 4 01:06:04 Hypokalemi a 45800205 Active 2022 Not Available [facility] 4 01:06:04 Pressure injury of sacral region of back 958427733 Active 2023 Uyen Vieyra MD [address], [address], [place], [address] , [employer] 4 11:35:43 Problem Notes None recorded. Procedures Surgical History Date Name Laterality Status Provider Name and Address Organization Details Recorded Time 3 endoscopy completed Virginie Pascual LPN [employer] 11/06/2023 08:51:19 3 Wound Care-Podiatry completed Robert Bradshaw DPM [address], [address], [place], [address], [employer] 09/23/2023 17:05:49 3 Wound Care-Podiatry completed Robert Bradshaw DPM [address], [address], [place], [address], [employer] 09/23/2023 09:56:11 3 Wound Care-Podiatry completed Robert Bradshaw DPM [address], [address], [place], [address], [employer] 06/25/2023 09:17:02 3 Wound Care-Podiatry completed Robert Bradshaw DPM [address], [address], [place], [address], [employer] 06/10/2023 17:59:53 3 Wound Care-Podiatry completed Robert Bradshaw DPM [address], [address], [place], [address], [employer] 06/03/2023 17:23:59 3 Wound Care-Podiatry completed Hillary Mo RN [employer] 05/27/2023 16:30:58 3 Wound Care-Podiatry completed Marilyn Beal RN [facility] [employer] [facility] 05/20/2023 17:17:29 3 Wound Care-Podiatry completed Hillary Mo RN [facility] [employer] [facility] 05/13/2023 15:56:55 3 Wound Care-Podiatry completed Hillary Mo RN [facility] [employer] [facility] 05/06/2023 17:40:57 3 Wound Care-Podiatry completed Marilyn Beal RN [facility] [employer] [facility] 04/22/2023 18:31:31 3 Wound Care-Podiatry completed Hillary Mo RN [facility] [employer] [facility] 04/15/2023 17:39:58 3 Wound Care-Podiatry completed Marilyn Beal RN [facility] [employer] [facility] 04/08/2023 16:50:43 3 Wound Care-Podiatry completed Hillary Mo RN [facility] [employer] [facility] 04/01/2023 16:25:29 3 Wound Care-Podiatry completed Robert Bradshaw DPM [address], [address], [place], [address], [facility] [employer] [facility] 03/25/2023 17:33:03 3 Wound Care-Podiatry completed Robert Bradshaw DPM [address], [address], [place], [address], [facility] [employer] [facility] 03/18/2023 16:09:01 3 Wound Care-Podiatry completed Robert Bradshaw DPM [address], [address], [place], [address], [facility] [employer] [facility] 03/18/2023 16:12:54 3 Wound Care-Podiatry completed Marilyn Beal RN [facility] [employer] [facility] 03/04/2023 16:15:08 3 Wound Care-Podiatry completed Robert Bradshaw DPM [address], [address], [place], [address], [place] [facility] [employer] [facility] 02/26/2023 17:54:08 3 Wound Care-Podiatry completed Marilyn Beal RN [facility] [employer] [facility] 02/19/2023 19:01:04 3 Wound Care-Podiatry completed Robert Bradshaw DPM [address], [place], [address], [facility] [employer] [facility] 02/18/2023 15:32:35 3 Wound Care-Podiatry completed Marilyn Beal RN [facility] [employer] [facility] 02/04/2023 15:49:06 Kidney Stones completed Not Available [facility] 01/07/2023 05:56:33 Imaging Results Imaging Date Name Status LastModified by Organization Details LastModified Time 08/24/2023 imaging interpretation completed [address], [address], 09/02/2023 10:41:20 09/01/2023 imaging interpretation completed [address], [address], 09/02/2023 11:03:27 09/01/2023 imaging interpretation completed [address], [address], 09/02/2023 11:04:01 09/06/2023 CT, foot, w/ contrast completed [address], [address], 03/22/2024 11:07:09 09/16/2023 XR, chest, [address], [address], 03/22/2024 11:17:18 09/17/2023 US, echocardiogram completed [email or web address] [place] [address], [place], [address], 03/22/2024 11:17:28 09/17/2023 CT, chest + abdomen, w/ contrast completed [address] [address], [place], [address], 03/22/2024 11:17:49 09/18/2023 XR, chest, 1 view completed [address] [address], [place], [address], 03/22/2024 11:18:00 09/20/2023 XR, chest, 1 view completed [address] [address], [place], [address], 03/22/2024 11:18:18 09/28/2023 XR, chest completed [address] [address], [place], [address], 03/21/2024 15:02:57 09/28/2023 XR, chest completed [address] [address], [place], [address], 03/21/2024 15:03:06 09/28/2023 XR, abdomen completed [address] [address], [place], [address], 03/21/2024 15:03:28 09/28/2023 US, echocardiogram completed [email or web address] [place] [address], [place], [address], 03/21/2024 15:03:44 09/28/2023 XR, chest, 1 view completed [address] [address], [place], [address], 03/21/2024 15:03:58 09/28/2023 CT, abdomen + pelvis, w/o contrast completed [address], [address], 03/21/2024 15:04:15 09/28/2023 XR, chest, 1 view completed [address], [address], 03/21/2024 15:04:27 09/28/2023 thoracentesis (PROC) completed [address], [address], 03/21/2024 15:04:53 09/28/2023 XR, chest, 1 view completed [address], [address], 03/21/2024 15:05:02 09/28/2023 biopsy, abscess (PROC) completed [address], [address], 03/21/2024 15:07:20 Procedure Notes None recorded. Medical Equipment None Reported. Allergies Allergen ID Allergen Name Allergen Category Reaction Reaction Severity Criticality Documentation Date Start Date Code Code System Note Provider Name and Address Organization Details Recorded Time 01254 tramadol medicatio n Not available Not available Not available 01/07/2023 21699 RxNorm Not Available [facility] 3 06:09:31 Medications Name Sig Start Date Stop Date Status Note LastModified by Organization Details LastModified Time cyclobenz aprine 10 mg tablet TAKE 1 TABLET BY MOUTH THREE TIMES DAILY NEEDED FOR MUSCLE SPASM active Not Available Not Available No t Available amoxicill in 500 mg capsule TK ONE C PO Q 12 H FOR 5 DAYS. 04/28 completed Not Available Not Available Not Available fluconazo le 100 mg tablet 01/09 completed Not Available Not Available Not Available atorvasta tin 40 mg tablet TAKE 1 TABLET BY MOUTH EVERY NIGHT AT BEDTIME active Not Available Not Available No t Available methocarb jeffery 500 mg tablet TAKE 1 TABLET BY MOUTH EVERY 8 HOURS NEEDED FOR MUSCLE SPASMS. active Not Available Not Available No t Available metformin 500 mg tablet Take 1 tablet twice a day by oral route. active Not Available Not Available No t Available albuterol sulfate 0.63 mg/3 mL solution for nebulizat ion 07/10 completed Not Available Not Available Not Available promethaz ine-DM 6.25 mg-15 mg/5 mL oral syrup Take 5 mL every 4 hours by oral route as needed. active Not Available Not Available No t Available Xylocaine with Epinephri ne 2 %-1:100,0 00 injection solution Take 2 mL every day by injectio n route for 1 day. 08/11 completed Not Available Not Available Not Available atorvasta tin 80 mg tablet TAKE 1 TABLET BY MOUTH EVERY DAY active Not Available Not Available No t Available prednison e 10 mg tablet 05/03 completed Not Available Not Available Not Available gabapenti n 600 mg tablet 1 po qhs 07/10 completed Not Available Not Available Not Available doxycycli ne hyclate 100 mg capsule 09/09 completed Not Available Not Available Not Available ipratropi um 0.5 mg-albute rol 3 mg (2.5 mg base)/3 mL nebulizat ion soln INHALE 3 ML QID BY NEBULIZA TION ROUTE PRN active Not Available Not Available No t Available Klor-Con 10 mEq tablet,ex tended release TK 1 T PO QD 08/08 completed Not Available Not Available Not Available albuterol sulfate 2.5 mg/3 mL (0.083 %) solution for nebulizat ion 3 ml per neb x 1 08/09 completed [id number] [id number] Not Available Not Available Not Available ammonium lactate 12 % lotion APPLY TO BOTTOM OF BOTH FEET TWICE DAILY active Not Available Not Available No t Available glyburide 5 mg tablet active Not Available Not Available Not Available ibuprofen 800 mg tablet 02/04 completed Not Available Not Available Not Available metoprolo l tartrate 100 mg tablet TAKE 1 TABLET BY MOUTH TWICE DAILY active Not Available Not Available No t Available diclofena c ER 100 mg tablet,ex tended release 24 hr TAKE 1 TABLET BY MOUTH TWICE DAILY active Not Available Not Available No t Available hydrocodo ne 5 mg-acetam inophen 325 mg tablet TAKE 1 TABLET BY MOUTH EVERY 6 HOURS NEEDED 09/09 completed Not Available Not Available Not Available ondansetr on HCl 8 mg tablet Take 1 tablet every 8 hours by oral route for 3 days. active Not Available Not Available No t Available meloxicam 15 mg tablet 07/10 completed Not Available Not Available Not Available FreeStyle Lancets 28 gauge U TO TEST BLOOD SUGAR TID. 07/10 completed Not Available Not Available Not Available lisinopri l 20 mg tablet Take 1 tablet every day by oral route. 04/04 completed Not Available Not Available Not Available prednison e 20 mg tablet 2 po qday x 5 days active Not Available Not Available No t Available clonazepa m 0.5 mg tablet TK 2 TS PO BID 01/09 completed Not Available Not Available Not Available gabapenti n 400 mg capsule TAKE 2 CAPSULES BY MOUTH THREE TIMES DAILY active Not Available Not Available No t Available sertralin e 100 mg tablet TAKE 1 AND 1/2 TABLETS BY MOUTH EVERY DAY 2023 active Not Available Not Available Not Avai lable olanzapin e 5 mg tablet TAKE 1 TABLET BY MOUTH EVERY 12 HOURS active Not Available Not Available No t Available clonazepa m 1 mg tablet TAKE 1 TABLET BY MOUTH TWICE DAILY active Not Available Not Available No t Available Zithromax Z-Flavio 250 mg tablet TAKE 2 TABLETS (500 MG) BY ORAL ROUTE ONCE DAILY FOR 1 DAY THEN 1 TABLET (250 MG) BY ORAL ROUTE ONCE DAILY FOR 4 DAYS active Not Available Not Available No t Available Lantus U-100 Insulin 100 unit/mL subcutane ous solution ADMINIST ER 80 UNITS UNDER THE SKIN EVERY DAY AT BEDTIME 02/14 completed Not Available Not Available Not Available permethri n 5 % topical cream active Not Available Not Available Not Available diphenoxy late-atro pine 2.5 mg-0.025 mg tablet TK TWO TS PO QID PRN 04/28 completed Not Available Not Available Not Available metronida zole 500 mg tablet TK 1 T PO TID FOR 10 DAYS active Not Available Not Available No t Available ciproflox acin 250 mg tablet Take 1 tablet every 12 hours by oral route for 10 days. active Not Available Not Available No t Available amlodipin e 5 mg tablet TK 1 T PO QD active Not Available Not Available No t Available ciproflox acin 500 mg tablet TAKE 1 AND 1/2 TABLETS BY MOUTH EVERY 12 HOURS FOR 6 DAYS 02/04 completed Not Available Not Available Not Available sulfameth oxazole 800 mg-trimet hoprim 160 mg tablet TAKE 1 TABLET BY MOUTH EVERY 12 HOURS FOR 10 DAYS 05/20 completed Not Available Not Available Not Available hydrocodo ne 10 mg-acetam inophen 325 mg tablet TK 1 T PO QID PRN 11/22 completed Not Available Not Available Not Available aspirin 81 mg tablet,de layed release TK 1 T PO QD active Not Available Not Available No t Available tramadol 50 mg tablet TK ONE TO TWO TS PO Q 4-6 HOURS PRN. DO NOT TAKE MORE THAN 8 TABLETS IN 24 HOURS. active Not Available Not Available No t Available ketorolac 30 mg/mL (1 mL) injection solution Inject 1 mL every day by intramus cular route for 1 day. 05/20 completed Not Available Not Available Not Available amoxicill in 500 mg tablet Take 1 tablet every 12 hours by oral route for 5 days. 04/28 completed Not Available Not Available Not Available simvastat in 40 mg tablet TAKE 1 TABLET BY MOUTH IN THE EVENING active Not Available Not Available No t Available glimepiri de 2 mg tablet TAKE 1 TABLET BY MOUTH EVERY DAY 02/04 completed Not Available Not Available Not Available ketorolac 10 mg tablet TK 1 T PO QID PRN FOR 5 DAYS active Not Available Not Available No t Available losartan 100 mg-hydroc hlorothia zide 25 mg tablet TAKE 1 TABLET BY MOUTH EVERY DAY 02/04 completed Not Available Not Available Not Available oxycodone -acetamin ophen 5 mg-325 mg tablet TK 1 T PO Q 6 H PRN P 11/22 completed Not Available Not Available Not Available ofloxacin 0.3 % ear drops 05/03 completed Not Available Not Available Not Available hydrocodo ne 10 mg-acetam inophen 500 mg tablet Take 1 tablet every 4 hours by oral route. active Not Available Not Available No t Available amoxicill in 875 mg tablet Take 1 tablet every 12 hours by oral route for 7 days. active Not Available Not Available No t Available potassium chloride ER 20 mEq tablet,ex tended release(p art/cryst ) TAKE 1 TABLET BY MOUTH TWICE DAILY active Not Available Not Available No t Available Percocet 10 mg-325 mg tablet Take 1 tablet every 6 hours by oral route as needed. active Not Available Not Available No t Available tamsulosi n 0.4 mg capsule Take 1 capsule every day by oral route for 10 days. active Not Available Not Available No t Available gabapenti n 800 mg tablet TAKE 1 TABLET BY MOUTH THREE TIMES DAILY 02/04 completed Not Available Not Available Not Available trazodone 100 mg tablet 1 po qhs prn insomnia active Not Available Not Available No t Available Xylocaine 10 mg/mL (1 %) injection solution Take 2 mL by injectio n route. active Not Available Not Available No t Available [employer]ue Ultra Test strips USE TO TEST BLOOD SUGAR THREE TIMES DAILY active Not Available Not Available No t Available amlodipin e 10 mg tablet TK 1 T PO QD 07/10 completed Not Available Not Available Not Available triamcino lone acetonide 40 mg/mL suspensio n for injection Take 2 mL by injectio n route. active Not Available Not Available No t Available cephalexi n 500 mg capsule TAKE 1 CAPSULE BY MOUTH EVERY 8 HOURS FOR 1 WEEK active Not Available Not Available No t Available pantopraz ole 40 mg tablet,de layed release TAKE 1 TABLET BY MOUTH EVERY 12 HOURS active Not Available Not Available No t Available oseltamiv ir 75 mg capsule 1 po bid x 5 days active Not Available Not Available No t Available triamcino lone acetonide 0.1 % topical ointment APPLY EXTERNAL LY TO THE AFFECTED AREA TWICE DAILY NEEDED active Not Available Not Available No t Available lisinopri l 10 mg tablet TK ONE T PO D 12/28 completed Not Available Not Available Not Available glimepiri de 4 mg tablet TAKE 1 TABLET BY MOUTH EVERY DAY active Not Available Not Available No t Available prednison e 50 mg tablet 05/03 completed Not Available Not Available Not Available promethaz ine 25 mg tablet Take 1 tablet every 4 hours by oral route as needed. 02/04 completed Not Available Not Available Not Available Qvar 40 mcg/actua tion Metered Aerosol oral inhaler INL 2 PFS PO BID 07/10 completed Not Available Not Available Not Available ibuprofen 400 mg tablet active Not Available Not Available Not Available gabapenti n 300 mg capsule TAKE 2 CAPSULES BY MOUTH TWICE DAILY active Not Available Not Available No t Available buspirone 7.5 mg tablet TK 1 T PO BID active Not Available Not Available No t Available aspirin 81 mg chewable tablet TAKE 1 TABLET BY MOUTH EVERY DAY active Not Available Not Available No t Available diclofena c sodium 75 mg tablet,de layed release TAKE 1 TABLET BY MOUTH TWICE DAILY 02/04 completed Not Available Not Available Not Available insulin syringe U-100 with needle 1 mL 31 gauge x 5/16 INJECT INSULIN D DIRECTED 03/01 completed Not Available Not Available Not Available hydroxyzi ne HCl 25 mg tablet TAKE 1 TABLET BY MOUTH THREE TIMES DAILY NEEDED active Not Available Not Available No t Available hydrochlo rothiazid e 25 mg tablet TK 1 T PO QD active Not Available Not Available No t Available mupirocin 2 % topical ointment APPLY A SMALL AMOUNT TO THE AFFECTED AREA BY TOPICAL ROUTE 3 TIMES PER DAY FOR 5 DAYS 08/11 completed Not Available Not Available Not Available ergocalci ferol (vitamin D2) 1,250 mcg (50,000 unit) capsule Take 1 capsule every week by oral route. active Not Available Not Available No t Available ibuprofen 600 mg tablet TK 1 T PO Q 6 H WF PRF PAIN 07/10 completed Not Available Not Available Not Available levofloxa montana 500 mg tablet 06/16 completed Not Available Not Available Not Available zolpidem 10 mg tablet TAKE 1 TABLET BY MOUTH EVERY NIGHT AT BEDTIME NEEDED FOR INSOMNIA active Not Available Not Available No t Available albuterol sulfate HFA 90 mcg/actua tion aerosol inhaler INHALE 2 PUFFS PO QID PRF SOB / WHEEZING active Not Available Not Available No t Available lisinopri l 40 mg tablet TAKE 1 TABLET PO BID 08/08 completed Not Available Not Available Not Available ondansetr on 4 mg disintegr ating tablet DIS ONE T PO Q 6 H PRF NAUSEA/V OMITING 07/10 completed Not Available Not Available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
[2025-03-27 19:58] LABS: Glucose Point of Care 148 mg/dl (65-105)
[2025-03-27] MEDS: SODIUM CHLORIDE 0.9% IV 1,000 ML 999 ML IV CONT ×2 (20:17→20:41)
[2025-03-27] MEDS: ONDANSETRON INJ 4 MG/2 ML VIAL IV PUSH (20:18)
[2025-03-27 20:19] LABS: Basophils Absolute Auto 0.1 K/mm3 (0.0-0.1); Basophils Percent Auto 0.3 % (0.2-1.2); Eosinophils Percent Auto 0.2 % (0-4.4); Hematocrit 33.7 % (42.0-52.0); Hemoglobin 10.3 g/dL (14.0-18.0); Immature Granulocyte Absolute 0.16 K/mm3 (0.00-0.031); Immature Granulocyte Percent A 1.1 % (0-0.5); Immature Platelet Fraction Pct 4.4 % (0.9-11.2); Lymphocytes Absolute Auto 0.41 K/mm3 (0.9-3.2); Lymphocytes Percent Auto 2.7 % (18.3-44.2); Mean Corpuscular HGB Conc 30.6 g/dl (32-36); Mean Corpuscular Hemoglobin 26.7 pg (26-34); Mean Corpuscular Volume 87.3 fl (80-100); Mean Platelet Volume 11.5 fl (7.4-10.4); Monocytes Absolute Auto 0.5 K/mm3 (0.1-0.6); Neutrophils Percent Auto 92.7 % (45.5-73.1); Platelet Count Result 337 k/mm3 (150-375); Red Blood Count 3.86 M/mm3 (4.6-6.20); Red Cell Distribution Width 14.9 % (11.5-14.5); White Blood Count 15.1 K/mm3 (4.5-10.0)
--- NOTE | 2025-03-27 20:22 | PC.NURSE ---
patient talking and asking for water telling us what his pain level is, patient not answering any questions for us at this time.
[2025-03-27 20:38] LABS: Lactic Acid Reflex 4.3 mmol/L (0.7-2.0)
[2025-03-27 20:41] LABS: Platelet Estimate Adequate (Adequate); Schistocytes None Seen
[2025-03-27 20:42] LABS: Band Neutrophils Percent 0 % (0-6); Hypochromasia 1+
[2025-03-27] MEDS: diphenhydrAMINE HCl INJ 50 MG/ML VIAL 25 MG IV PUSH (20:44)
[2025-03-27] MEDS: METOCLOPRAMIDE HCL INJ 10 MG/2 ML VIAL IV PUSH (20:45)
[2025-03-27 20:55] LABS: Influenza A QL RT-PCR Negative (Negative); Influenza B QL RT-PCR Negative (Negative); RSV RNA, RT-PCR Negative (Negative); SARS-CoV-2 RNA PCR Negative (Negative)
[2025-03-27 21:10] LABS: INR 1.2; Prothrombin Time 15.3 Seconds (11.1-14.7)
[2025-03-27] MEDS: ACETAMINOPHEN ELIXIR 325 MG/10.15 ML UDC 650 MG PO (21:14)
[2025-03-27 21:15] LABS: Alanine Aminotransferase 25 U/L (6-50); Albumin Level 4.6 g/dL (3.5-5.1); Alkaline Phosphatase 236 U/L (38-126); Anion Gap 18 mmol/L (4-12); Aspartate Amino Transferase 35 U/L (17-59); Bilirubin,Total 0.8 mg/dL (0.2-1.3); Blood Urea Nitrogen 20 mg/dL (9-20); Calcium 9.4 mg/dL (8.4-10.2); Carbon Dioxide 13 mmol/L (22-30); Chloride 109 mmol/L (98-107); Estimated CRCL calculation 62 ml/min; Estimated Glomerular Filt Rate 43; Glucose 154 mg/dL (65-110); Lipase 63 U/L (23-300); Magnesium 1.4 mg/dL (1.6-2.3); Potassium 4.5 mmol/L (3.4-5.0); Sodium 140 mmol/L (137-145)
--- NOTE | 2025-03-27 21:18 | ECG_ITS ---
Test Date: 2025-03-27 19:29:23 Measurements Intervals [place] Rate: 96 P: 60 DC: 151 QRS: 50 QRSD: 90 T: 71 QT: 377 QTc: 478 Interpretive Statements SINUS RHYTHM WITH OCCASIONAL VENTRICULAR PREMATURE COMPLEXES No previous ECG available for comparison Electronically Signed On 03-28-2025 13:29:42 CDT by Patricia Day M.D.
--- NOTE | 2025-03-27 21:23 | ED.NAVMDI ---
HPI - Nausea/Vomiting/Diarrhea General Chief complaint: Nausea/Vomiting/Diarrhea <AUTUMN Smith Last Filed: 03/27/25 23:43> Stated complaint: N/V; SOB <Chasidy Stevenson PA-C - Last Filed: 03/27/25 23:43> Time Seen by Provider: 03/27/25 19:33 <AUTUMN Smith Last Filed: 03/27/25 23:43> Source: patient and EMS <AUTUMN Smith Last Filed: 03/27/25 23:43> Mode of arrival: EMS <AUTUMN Smith Last Filed: 03/27/25 23:43> Limitations: clinical condition <AUTUMN Smith Last Filed: 03/27/25 23:43> History of Present Illness HPI Narrative: Patient is a 44-year-old male, with past medical history of DM, HTN, HLD, mitral valve replacement X2, who presents to the ED via EMS with report of N/V/D. Patient's aunt at bedside assisted in providing information. Reports patient has had intermittent nausea vomiting over the past few weeks. His is currently very sick and hospitalized and they assumed it was related to stress. She saw the patient over the past 2 days and he was acting normally. Approximately 2 hours prior to arrival per EMS, patient began having profuse nausea, vomiting, diarrhea. Multiple episodes of vomiting and diarrhea. Complains of diffuse abdominal pain. Patient unable to provide much information, frequently asking for something to drink. <AUTUMN Smith Last Filed: 03/27/25 23:43> Related Data Home medications: Home Medications ?Medication ?Instructions ?Recorded ?Confirmed ?Last Taken ?Type gabapentin 300 mg capsule 400 mg PO QID PRN Muscle Pain 04/27/20 09/17/23 09/15/23 History atorvastatin 80 mg tablet 40 mg PO DAILY 03/23/23 09/18/23 09/15/23 History sertraline 100 mg tablet 150 mg PO HS 03/23/23 09/18/23 09/15/23 History buspirone 15 mg tablet 15 mg PO DAILY PRN anxiey 09/18/23 09/18/23 Unknown History cyclobenzaprine 10 mg tablet 10 mg PO DAILY PRN muscle cramps 09/18/23 09/18/23 Unknown History <Chasidy Stevenson PA-C - Last Filed: 03/27/25 23:43> Allergies/Adverse reactions: Allergies Allergy/AdvReac Type Severity Reaction Status Date / Time tramadol AdvReac Hallucinati Verified 03/28/25 00:15 ng <Chasidy Stevenson PA-C - Last Filed: 03/27/25 23:43> Review of Systems Review of Systems: All systems reviewed & are unremarkable except as noted in HPI. <Chasidy Stevenson PA-C - Last Filed: 03/27/25 23:43> All systems reviewed & are unremarkable except as noted in HPI and below <Chasidy Stevenson PA-C - Last Filed: 03/27/25 23:43> [facility] Past Medical History Medical History: Medical History Hyperlipidemia Mitral regurgitation Diabetic neuropathy DM2 (diabetes mellitus, type 2) Neuropathy HTN (hypertension) with goal to be determined Kidney stones COPD (chronic obstructive pulmonary disease) Depression with anxiety History of diabetes mellitus History of COPD History of hypertension <Chasidy Stevenson PA-C - Last Filed: 03/27/25 23:43> Surgical History Surgical History: Surgical History H/O tooth extraction History of lithotripsy History of cardiac catheterization 2013, no coronary artery disease <Chasidy Stevenson PA-C - Last Filed: 03/27/25 23:43> Family History Family History: Family History Mother Cerebrovascular accident Hypertension Depression Father Diabetes mellitus Heart disease Cancer before age 60 Acute myocardial infarction Grandparent Heart disease COPD (chronic obstructive pulmonary disease) Kidney disease <Chasidy Stevenson PA-C - Last Filed: 03/27/25 23:43> Social History Social History: Social History Social History: The patient is and lives with his zaire who will be his surrogate. He has 3 children. 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 And his is the power of financial professional. Patient is down to smoking 1 pack a cigarettes a day he said he used to smoke 2 and 3 packs of cigarettes a day. He denies any alcohol. uses marijuana code status full code Smoking packs per day: 2 Smoking cigarettes per day: 40.0 Years smoked: 30 Smoking pack-years: 60.00 Smoking status: Former smoker Tobacco type: cigarettes Second hand tobacco smoke exposure: Yes Alcohol intake: never Substance use: current Substance use type: marijuana Last use: 1 month ago Do You Feel Safe in your Home?: Yes Lack of Transportation: No Lack of Food: Never True Current Housing: I Have Housing Concerned About Future Housing: YES Difficulty Paying Gas/Electric Bills: No Difficulty Paying for Meds: No Currently Unemployed: No Education: High School Diploma/GED Difficulty w/ Childcare or Family Care: No Gender identity (if verbalized by the patient): Male Spiritual care concerns: No <Chasidy Stevenson PA-C - Last Filed: 03/27/25 23:43> Exam Narrative: GENERAL: Ill-appearing, obese with BMI of 32.3, in moderate acute distress, actively vomiting on exam. HEAD: Normocephalic, atraumatic. RESPIRATORY: Airway patent, respirations tachypneic but nonlabored. Clear to auscultation bilaterally, no rales, rhonchi, wheezing. CARDIOVASCULAR: Tachycardic with regular rhythm without murmurs, rubs, or gallops. Peripheral pulses are intact. ABDOMINAL: Soft, diffuse tenderness, nondistended. No appreciable rebound. Slightly hyperactive BS. MUSCULOSKELETAL: Moves all extremities. No gross deformities. SKIN: Warm, dry, diaphoretic. Andrew dorsal foot swelling. L 2nd digit with diffuse swelling/erythema, small scabbed ulcer to distal toe. No drainage. NEURO: Alert, difficulty keeping eyes open, repeatedly asking for water, unable to hold conversation. Speech clear. No ataxic movements. No appreciable focal deficits. PSYCHIATRIC: Appropriate mood and affect. Normal interaction. <Chasidy Stevenson PA-C - Last Filed: 03/27/25 23:43> Course LEATHER CRAFTER/PA Physician Supervision I agree with midlevel documentation; I performed the medical decision making component of this evaluation. Patient presenting initially febrile and confused, after fever treated and fluids and antibiotics given, patient now back to baseline, he just tells me that he feels thirsty. Repeat labs are improved. Admitted to hospitalist. <Samantha Pinto MD - Last Filed: 03/28/25 01:22> Vital Signs Vital signs: Vital Signs Temperature 102.8 F H 03/27/25 19:30 Pulse Rate 97 03/27/25 19:30 Respiratory Rate 16 03/27/25 19:30 Blood Pressure 215/95 H 03/27/25 19:30 Pulse Oximetry 98 03/27/25 19:30 Oxygen Delivery Room Air 03/27/25 19:30 Temperature 99.8 F H 03/27/25 21:46 Pulse Rate 84 03/27/25 23:11 Respiratory Rate 16 03/27/25 23:11 Blood Pressure 162/75 H 03/27/25 23:11 Pulse Oximetry 98 03/27/25 23:11 Oxygen Delivery Room Air 03/27/25 19:30 <Chasidy Stevenson PA-C - Last Filed: 03/27/25 23:43> Vital Signs Temperature 102.8 F H 03/27/25 19:30 Pulse Rate 97 03/27/25 19:30 Respiratory Rate 16 03/27/25 19:30 Blood Pressure 215/95 H 03/27/25 19:30 Pulse Oximetry 98 03/27/25 19:30 Oxygen Delivery Room Air 03/27/25 19:30 Temperature 99.8 F H 03/27/25 21:46 Pulse Rate 84 03/27/25 23:11 Respiratory Rate 16 03/27/25 23:11 Blood Pressure 162/75 H 03/27/25 23:11 Pulse Oximetry 98 03/27/25 23:11 Oxygen Delivery Room Air 03/27/25 19:30 <Samantha Pinto MD - Last Filed: 03/28/25 01:22> MDM - Nausea/Vomiting/Diarrhea MDM Narrative Medical decision making narrative: Patient presented to ED with N/V/D. Patient hypertensive, tachycardic, febrile to 103 upon arrival. Extensive sepsis workup initiated. Blood cultures obtained. Stool cx obtained. Broad-spectrum antibiotics initiated. Patient initially unable to provide much information. Somewhat delirious, frequently asking for something to eat. Attempted to give p.o./rectal Tylenol, but patient did not tolerate this. Actively vomiting. Fluids and nausea medicine initiated. Aunt at bedside assisted in providing information. Reports patient has had intermittent nausea vomiting over the past few weeks, has been taking care of his sick who has been hospitalized with reported VRE bacteremia. Reports patient himself had prolonged hospitalization last year r/t kidney infection and mitral heart valve replacement. Aunt also provides that patient has EKG with sinus rhythm, no concerning ST changes, normal QTC CBC with white blood cell count of 15.1. Neutrophil predominance. No bandemia. Hemoglobin 10.3. No recent records to compare to. Normal platelets. CMP with evidence of significant dehydration. Bicarb 13. Anion gap of 18. Blood glucose is only very mildly elevated to 148. SARAH with creatinine of 1.75. Baseline per records 0.8-1.2. Initial lactic acid markedly elevated to 4.3. Fluids are ongoing. Mag low at 1.4. IV replacement given. Normal LFTs and lipase. Alk-phos is elevated 236. Consistent with previous records. TSH within normal range. UA with ketonuria, glucosuria, small amount of RBC, no signs of infection. Urine drug screen positive for cannabinoids, otherwise negative. Alcohol level negative. C diff testing resulted negative. Viral swabs are negative. CT brain without acute changes. CT scan of chest/abdomen/pelvis showed multiple findings, pulmonary edema versus infection versus aspiration, pyelitis, colitis, L femoral LAD Patient also with what appears to be contact dermatitis rash to L medial thigh? Nonpruritic, does not appear consistent with urticaria. No necrosis or loss of skin integrity. No sloughing of skin. No blistering or vesicular lesions. Will continue to monitor. Patient's left 2nd toe also suspicious for diabetic foot infection. Patient does report history of previous osteomyelitis. 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 XR of L foot obtained. Vancomycin and Zosyn ongoing. VS have significantly stabilized with supportive therapy. HR in 80s, BP now 130s systolic, fever broke with tylenol elixir. Repeat lactic acid 2.1. Patient will be admitted for further evaluation. Discussed case with Dr. Gould, hospitalist, accepted patient for admission. Recommend fluids at 150cc/hour, obtain ABG, admit to IMU. Patient and family in agreement with plan. <Chasidy Stevenson PA-C - Last Filed: 03/27/25 23:43> Medical Records Attestation: I reviewed the patient's medical records. <Chasidy Stevenson PA-C - Last Filed: 03/27/25 23:43> Lab Data Attestation: I reviewed the patient's lab results. <Chasidy Stevenson PA-C - Last Filed: 03/27/25 23:43> Result diagrams: 03/27/25 20:00 03/27/25 23:29 <AUTUMN Smith Last Filed: 03/27/25 23:43> Labs: Lab Results 03/27/25 03/27/25 03/27/25 Range/Units 19:55 20:00 20:02 WBC 15.1 H (4.5-10.0) K/mm3 RBC 3.86 L (4.6-6.20) M/mm3 Hgb 10.3 L (14.0-18.0) g/dL Hct 33.7 L (42.0-52.0) % MCV 87.3 (80-100) fl MCH 26.7 (26-34) pg MCHC 30.6 L (32-36) g/dl RDW 14.9 H (11.5-14.5) % Plt Count 337 (150-375) k/mm3 MPV 11.5 H (7.4-10.4) fl Immature Gran % (Auto) 1.1 H (0-0.5) % Neut % (Auto) 92.7 H (45.5-73.1) % Lymph % (Auto) 2.7 L (18.3-44.2) % [place] % (Auto) 3.0 (2.6-8.5) % Eos % (Auto) 0.2 (0-4.4) % Baso % (Auto) 0.3 (0.2-1.2) % Lymph # (Auto) 0.41 L (0.9-3.2) K/mm3 [place] # (Auto) 0.5 (0.1-0.6) K/mm3 Eos # (Auto) 0.0 (0-0.3) K/mm3 Baso # (Auto) 0.1 (0.0-0.1) K/mm3 Abs Immat Gran (auto) 0.16 H (0.00-0.031) K/mm3 Absolute Neuts (auto) 14.0 H (1.3-6.7) K/mm3 Absolute Nucleated RBC 0.000 (0.0-0.012) K/mm3 Band Neutrophils % 0 (0-6) % Nucleated RBC % 0.0 (0.0-0.2) % Platelet Estimate Adequate (Adequate) % Immature Plt Fraction 4.4 (0.9-11.2) % Hypochromasia 1+ Schistocytes None seen PT 15.3 H (11.1-14.7) Seconds INR 1.2 APTT 32.0 (22.3-36.8) Seconds Sodium 140 (137-145) mmol/L Potassium 4.5 (3.4-5.0) mmol/L Chloride 109 H (98-107) mmol/L Carbon Dioxide 13 L (22-30) mmol/L Anion Gap 18 H (4-12) mmol/L BUN 20 (9-20) mg/dL Creatinine 1.75 H (0.7-1.3) mg/dL Estim Creat Clear Calc 62 ml/min Estimated GFR 43 L (59 - ) Glucose 154 H (65-110) mg/dL POC Capillary Glucose 148 H (65-105) mg/dl Hemoglobin A1c (<5.7) % Lactic Acid 4.3 H* (0.7-2.0) mmol/L Calcium 9.4 (8.4-10.2) mg/dL Magnesium 1.4 L (1.6-2.3) mg/dL Total Bilirubin 0.8 (0.2-1.3) mg/dL AST 35 (17-59) U/L ALT 25 (6-50) U/L Alkaline Phosphatase 236 H (38-126) U/L NT-Pro-B Natriuret Pep (19.9-100) pg/mL Total Protein 9.0 H (6.3-8.2) g/dL Albumin 4.6 (3.5-5.1) g/dL Lipase 63 (23-300) U/L TSH (Reflex) 0.584 (0.465-4.68) uIU/mL Urine Color (Yellow) Urine Appearance (Clear) Urine pH (5.0-9.0) Ur Specific [place] (1.001-1.035) Urine Protein (Negative) mg/dL Urine Glucose (UA) (Negative) mg/dL Urine Ketones (Negative) mg/dL Ur Blood (Man) (Negative) Urine Nitrate (Negative) Urine Bilirubin (Negative) Urine Urobilinogen (<2.0) mg/dL Leukocyte Esterase Rfl (Negative) MARIA VICTORIA/UL Urine RBC (0-2) /hpf Urine WBC (0-3) /hpf Ur Squamous Epith Cells (Few) /hpf Urine Bacteria /hpf Urine Casts Nasal MRSA (PCR) (NOT DETECTE) Urine Opiates Screen (Negative) Urine Methadone Screen (Negative) Ur Barbiturates Screen (Negative) Ur Phencyclidine Scrn (Negative) Ur Amphetamine Screen (Negative) U Benzodiazepines Scrn (Negative) Urine Cocaine Screen (Negative) U Cannabinoids Screen (Negative) Ethyl Alcohol < 10 (<10) mg/dL C. difficile (PCR) (NEGATIVE) Influenza A (RT-PCR) Negative (Negative) Influenza B (RT-PCR) Negative (Negative) RSV (RT-PCR) Negative (Negative) SARS-CoV-2 RNA (RT-PCR) Negative (Negative) 03/27/25 03/27/25 03/27/25 Range/Units 21:14 21:59 22:27 WBC (4.5-10.0) K/mm3 RBC (4.6-6.20) M/mm3 Hgb (14.0-18.0) g/dL Hct (42.0-52.0) % MCV (80-100) fl MCH (26-34) pg MCHC (32-36) g/dl RDW (11.5-14.5) % Plt Count (150-375) k/mm3 MPV (7.4-10.4) fl Immature Gran % (Auto) (0-0.5) % Neut % (Auto) (45.5-73.1) % Lymph % (Auto) (18.3-44.2) % [place] % (Auto) (2.6-8.5) % Eos % (Auto) (0-4.4) % Baso % (Auto) (0.2-1.2) % Lymph # (Auto) (0.9-3.2) K/mm3 [place] # (Auto) (0.1-0.6) K/mm3 Eos # (Auto) (0-0.3) K/mm3 Baso # (Auto) (0.0-0.1) K/mm3 Abs Immat Gran (auto) (0.00-0.031) K/mm3 Absolute Neuts (auto) (1.3-6.7) K/mm3 Absolute Nucleated RBC (0.0-0.012) K/mm3 Band Neutrophils % (0-6) % Nucleated RBC % (0.0-0.2) % Platelet Estimate (Adequate) % Immature Plt Fraction (0.9-11.2) % Hypochromasia Schistocytes PT (11.1-14.7) Seconds INR APTT (22.3-36.8) Seconds Sodium (137-145) mmol/L Potassium (3.4-5.0) mmol/L Chloride (98-107) mmol/L Carbon Dioxide (22-30) mmol/L Anion Gap (4-12) mmol/L BUN (9-20) mg/dL Creatinine (0.7-1.3) mg/dL Estim Creat Clear Calc ml/min Estimated GFR (59 - ) Glucose (65-110) mg/dL POC Capillary Glucose (65-105) mg/dl Hemoglobin A1c (<5.7) % Lactic Acid 2.1 H (0.7-2.0) mmol/L Calcium (8.4-10.2) mg/dL Magnesium (1.6-2.3) mg/dL Total Bilirubin (0.2-1.3) mg/dL AST (17-59) U/L ALT (6-50) U/L Alkaline Phosphatase (38-126) U/L NT-Pro-B Natriuret Pep (19.9-100) pg/mL Total Protein (6.3-8.2) g/dL Albumin (3.5-5.1) g/dL Lipase (23-300) U/L TSH (Reflex) (0.465-4.68) uIU/mL Urine Color Yellow (Yellow) Urine Appearance Clear (Clear) Urine pH 6.5 (5.0-9.0) Ur Specific [place] 1.012 (1.001-1.035) Urine Protein 3+ H (Negative) mg/dL Urine Glucose (UA) 2+ H (Negative) mg/dL Urine Ketones 1+ H (Negative) mg/dL Ur Blood (Man) 2+ H (Negative) Urine Nitrate Negative (Negative) Urine Bilirubin Negative (Negative) Urine Urobilinogen 0.2 (<2.0) mg/dL Leukocyte Esterase Rfl Negative (Negative) MARIA VICTORIA/UL Urine RBC 11-20 H (0-2) /hpf Urine WBC 0-5 (0-3) /hpf Ur Squamous Epith Cells None seen (Few) /hpf Urine Bacteria None seen /hpf Urine Casts 0-2 Nasal MRSA (PCR) Not detected (NOT DETECTE) Urine Opiates Screen Negative (Negative) Urine Methadone Screen Negative (Negative) Ur Barbiturates Screen Negative (Negative) Ur Phencyclidine Scrn Negative (Negative) Ur Amphetamine Screen Negative (Negative) U Benzodiazepines Scrn Negative (Negative) Urine Cocaine Screen Negative (Negative) U Cannabinoids Screen Positive A (Negative) Ethyl Alcohol (<10) mg/dL C. difficile (PCR) Negative (NEGATIVE) Influenza A (RT-PCR) (Negative) Influenza B (RT-PCR) (Negative) RSV (RT-PCR) (Negative) SARS-CoV-2 RNA (RT-PCR) (Negative) 03/27/25 03/27/25 Range/Units 23:29 23:29 WBC (4.5-10.0) K/mm3 RBC (4.6-6.20) M/mm3 Hgb (14.0-18.0) g/dL Hct (42.0-52.0) % MCV (80-100) fl MCH (26-34) pg MCHC (32-36) g/dl RDW (11.5-14.5) % Plt Count (150-375) k/mm3 MPV (7.4-10.4) fl Immature Gran % (Auto) (0-0.5) % Neut % (Auto) (45.5-73.1) % Lymph % (Auto) (18.3-44.2) % [place] % (Auto) (2.6-8.5) % Eos % (Auto) (0-4.4) % Baso % (Auto) (0.2-1.2) % Lymph # (Auto) (0.9-3.2) K/mm3 [place] # (Auto) (0.1-0.6) K/mm3 Eos # (Auto) (0-0.3) K/mm3 Baso # (Auto) (0.0-0.1) K/mm3 Abs Immat Gran (auto) (0.00-0.031) K/mm3 Absolute Neuts (auto) (1.3-6.7) K/mm3 Absolute Nucleated RBC (0.0-0.012) K/mm3 Band Neutrophils % (0-6) % Nucleated RBC % (0.0-0.2) % Platelet Estimate (Adequate) % Immature Plt Fraction (0.9-11.2) % Hypochromasia Schistocytes PT (11.1-14.7) Seconds INR APTT (22.3-36.8) Seconds Sodium 140 (137-145) mmol/L Potassium 3.9 (3.4-5.0) mmol/L Chloride 109 H (98-107) mmol/L Carbon Dioxide 15 L (22-30) mmol/L Anion Gap 16 H (4-12) mmol/L BUN 19 (9-20) mg/dL Creatinine 1.77 H (0.7-1.3) mg/dL Estim Creat Clear Calc 61 ml/min Estimated GFR 42 L (59 - ) Glucose 161 H (65-110) mg/dL POC Capillary Glucose (65-105) mg/dl Hemoglobin A1c 6.6 H (<5.7) % Lactic Acid (0.7-2.0) mmol/L Calcium 8.3 L (8.4-10.2) mg/dL Magnesium (1.6-2.3) mg/dL Total Bilirubin (0.2-1.3) mg/dL AST (17-59) U/L ALT (6-50) U/L Alkaline Phosphatase (38-126) U/L NT-Pro-B Natriuret Pep 4620 H Cancelled (19.9-100) pg/mL Total Protein (6.3-8.2) g/dL Albumin (3.5-5.1) g/dL Lipase (23-300) U/L TSH (Reflex) (0.465-4.68) uIU/mL Urine Color (Yellow) Urine Appearance (Clear) Urine pH (5.0-9.0) Ur Specific [place] (1.001-1.035) Urine Protein (Negative) mg/dL Urine Glucose (UA) (Negative) mg/dL Urine Ketones (Negative) mg/dL Ur Blood (Man) (Negative) Urine Nitrate (Negative) Urine Bilirubin (Negative) Urine Urobilinogen (<2.0) mg/dL Leukocyte Esterase Rfl (Negative) MARIA VICTORIA/UL Urine RBC (0-2) /hpf Urine WBC (0-3) /hpf Ur Squamous Epith Cells (Few) /hpf Urine Bacteria /hpf Urine Casts Nasal MRSA (PCR) (NOT DETECTE) Urine Opiates Screen (Negative) Urine Methadone Screen (Negative) Ur Barbiturates Screen (Negative) Ur Phencyclidine Scrn (Negative) Ur Amphetamine Screen (Negative) U Benzodiazepines Scrn (Negative) Urine Cocaine Screen (Negative) U Cannabinoids Screen (Negative) Ethyl Alcohol (<10) mg/dL C. difficile (PCR) (NEGATIVE) Influenza A (RT-PCR) (Negative) Influenza B (RT-PCR) (Negative) RSV (RT-PCR) (Negative) SARS-CoV-2 RNA (RT-PCR) (Negative) <Chasidy Stevenson PA-C - Last Filed: 03/27/25 23:43> Lab Results 03/27/25 03/27/25 03/27/25 Range/Units 19:55 20:00 20:02 WBC 15.1 H (4.5-10.0) K/mm3 RBC 3.86 L (4.6-6.20) M/mm3 Hgb 10.3 L (14.0-18.0) g/dL Hct 33.7 L (42.0-52.0) % MCV 87.3 (80-100) fl MCH 26.7 (26-34) pg MCHC 30.6 L (32-36) g/dl RDW 14.9 H (11.5-14.5) % Plt Count 337 (150-375) k/mm3 MPV 11.5 H (7.4-10.4) fl Immature Gran % (Auto) 1.1 H (0-0.5) % Neut % (Auto) 92.7 H (45.5-73.1) % Lymph % (Auto) 2.7 L (18.3-44.2) % [place] % (Auto) 3.0 (2.6-8.5) % Eos % (Auto) 0.2 (0-4.4) % Baso % (Auto) 0.3 (0.2-1.2) % Lymph # (Auto) 0.41 L (0.9-3.2) K/mm3 [place] # (Auto) 0.5 (0.1-0.6) K/mm3 Eos # (Auto) 0.0 (0-0.3) K/mm3 Baso # (Auto) 0.1 (0.0-0.1) K/mm3 Abs Immat Gran (auto) 0.16 H (0.00-0.031) K/mm3 Absolute Neuts (auto) 14.0 H (1.3-6.7) K/mm3 Absolute Nucleated RBC 0.000 (0.0-0.012) K/mm3 Band Neutrophils % 0 (0-6) % Nucleated RBC % 0.0 (0.0-0.2) % Platelet Estimate Adequate (Adequate) % Immature Plt Fraction 4.4 (0.9-11.2) % Hypochromasia 1+ Schistocytes None seen PT 15.3 H (11.1-14.7) Seconds INR 1.2 APTT 32.0 (22.3-36.8) Seconds Sodium 140 (137-145) mmol/L Potassium 4.5 (3.4-5.0) mmol/L Chloride 109 H (98-107) mmol/L Carbon Dioxide 13 L (22-30) mmol/L Anion Gap 18 H (4-12) mmol/L BUN 20 (9-20) mg/dL Creatinine 1.75 H (0.7-1.3) mg/dL Estim Creat Clear Calc 62 ml/min Estimated GFR 43 L (59 - ) Glucose 154 H (65-110) mg/dL POC Capillary Glucose 148 H (65-105) mg/dl Hemoglobin A1c (<5.7) % Lactic Acid 4.3 H* (0.7-2.0) mmol/L Calcium 9.4 (8.4-10.2) mg/dL Magnesium 1.4 L (1.6-2.3) mg/dL Total Bilirubin 0.8 (0.2-1.3) mg/dL AST 35 (17-59) U/L ALT 25 (6-50) U/L Alkaline Phosphatase 236 H (38-126) U/L NT-Pro-B Natriuret Pep (19.9-100) pg/mL Total Protein 9.0 H (6.3-8.2) g/dL Albumin 4.6 (3.5-5.1) g/dL Lipase 63 (23-300) U/L TSH (Reflex) 0.584 (0.465-4.68) uIU/mL Urine Color (Yellow) Urine Appearance (Clear) Urine pH (5.0-9.0) Ur Specific [place] (1.001-1.035) Urine Protein (Negative) mg/dL Urine Glucose (UA) (Negative) mg/dL Urine Ketones (Negative) mg/dL Ur Blood (Man) (Negative) Urine Nitrate (Negative) Urine Bilirubin (Negative) Urine Urobilinogen (<2.0) mg/dL Leukocyte Esterase Rfl (Negative) MARIA VICTORIA/UL Urine RBC (0-2) /hpf Urine WBC (0-3) /hpf Ur Squamous Epith Cells (Few) /hpf Urine Bacteria /hpf Urine Casts Nasal MRSA (PCR) (NOT DETECTE) Urine Opiates Screen (Negative) Urine Methadone Screen (Negative) Ur Barbiturates Screen (Negative) Ur Phencyclidine Scrn (Negative) Ur Amphetamine Screen (Negative) U Benzodiazepines Scrn (Negative) Urine Cocaine Screen (Negative) U Cannabinoids Screen (Negative) Ethyl Alcohol < 10 (<10) mg/dL C. difficile (PCR) (NEGATIVE) Influenza A (RT-PCR) Negative (Negative) Influenza B (RT-PCR) Negative (Negative) RSV (RT-PCR) Negative (Negative) SARS-CoV-2 RNA (RT-PCR) Negative (Negative) 03/27/25 03/27/25 03/27/25 Range/Units 21:14 21:59 22:27 WBC (4.5-10.0) K/mm3 RBC (4.6-6.20) M/mm3 Hgb (14.0-18.0) g/dL Hct (42.0-52.0) % MCV (80-100) fl MCH (26-34) pg MCHC (32-36) g/dl RDW (11.5-14.5) % Plt Count (150-375) k/mm3 MPV (7.4-10.4) fl Immature Gran % (Auto) (0-0.5) % Neut % (Auto) (45.5-73.1) % Lymph % (Auto) (18.3-44.2) % [place] % (Auto) (2.6-8.5) % Eos % (Auto) (0-4.4) % Baso % (Auto) (0.2-1.2) % Lymph # (Auto) (0.9-3.2) K/mm3 [place] # (Auto) (0.1-0.6) K/mm3 Eos # (Auto) (0-0.3) K/mm3 Baso # (Auto) (0.0-0.1) K/mm3 Abs Immat Gran (auto) (0.00-0.031) K/mm3 Absolute Neuts (auto) (1.3-6.7) K/mm3 Absolute Nucleated RBC (0.0-0.012) K/mm3 Band Neutrophils % (0-6) % Nucleated RBC % (0.0-0.2) % Platelet Estimate (Adequate) % Immature Plt Fraction (0.9-11.2) % Hypochromasia Schistocytes PT (11.1-14.7) Seconds INR APTT (22.3-36.8) Seconds Sodium (137-145) mmol/L Potassium (3.4-5.0) mmol/L Chloride (98-107) mmol/L Carbon Dioxide (22-30) mmol/L Anion Gap (4-12) mmol/L BUN (9-20) mg/dL Creatinine (0.7-1.3) mg/dL Estim Creat Clear Calc ml/min Estimated GFR (59 - ) Glucose (65-110) mg/dL POC Capillary Glucose (65-105) mg/dl Hemoglobin A1c (<5.7) % Lactic Acid 2.1 H (0.7-2.0) mmol/L Calcium (8.4-10.2) mg/dL Magnesium (1.6-2.3) mg/dL Total Bilirubin (0.2-1.3) mg/dL AST (17-59) U/L ALT (6-50) U/L Alkaline Phosphatase (38-126) U/L NT-Pro-B Natriuret Pep (19.9-100) pg/mL Total Protein (6.3-8.2) g/dL Albumin (3.5-5.1) g/dL Lipase (23-300) U/L TSH (Reflex) (0.465-4.68) uIU/mL Urine Color Yellow (Yellow) Urine Appearance Clear (Clear) Urine pH 6.5 (5.0-9.0) Ur Specific [place] 1.012 (1.001-1.035) Urine Protein 3+ H (Negative) mg/dL Urine Glucose (UA) 2+ H (Negative) mg/dL Urine Ketones 1+ H (Negative) mg/dL Ur Blood (Man) 2+ H (Negative) Urine Nitrate Negative (Negative) Urine Bilirubin Negative (Negative) Urine Urobilinogen 0.2 (<2.0) mg/dL Leukocyte Esterase Rfl Negative (Negative) MARIA VICTORIA/UL Urine RBC 11-20 H (0-2) /hpf Urine WBC 0-5 (0-3) /hpf Ur Squamous Epith Cells None seen (Few) /hpf Urine Bacteria None seen /hpf Urine Casts 0-2 Nasal MRSA (PCR) Not detected (NOT DETECTE) Urine Opiates Screen Negative (Negative) Urine Methadone Screen Negative (Negative) Ur Barbiturates Screen Negative (Negative) Ur Phencyclidine Scrn Negative (Negative) Ur Amphetamine Screen Negative (Negative) U Benzodiazepines Scrn Negative (Negative) Urine Cocaine Screen Negative (Negative) U Cannabinoids Screen Positive A (Negative) Ethyl Alcohol (<10) mg/dL C. difficile (PCR) Negative (NEGATIVE) Influenza A (RT-PCR) (Negative) Influenza B (RT-PCR) (Negative) RSV (RT-PCR) (Negative) SARS-CoV-2 RNA (RT-PCR) (Negative) 03/27/25 03/27/25 Range/Units 23:29 23:29 WBC (4.5-10.0) K/mm3 RBC (4.6-6.20) M/mm3 Hgb (14.0-18.0) g/dL Hct (42.0-52.0) % MCV (80-100) fl MCH (26-34) pg MCHC (32-36) g/dl RDW (11.5-14.5) % Plt Count (150-375) k/mm3 MPV (7.4-10.4) fl Immature Gran % (Auto) (0-0.5) % Neut % (Auto) (45.5-73.1) % Lymph % (Auto) (18.3-44.2) % [place] % (Auto) (2.6-8.5) % Eos % (Auto) (0-4.4) % Baso % (Auto) (0.2-1.2) % Lymph # (Auto) (0.9-3.2) K/mm3 [place] # (Auto) (0.1-0.6) K/mm3 Eos # (Auto) (0-0.3) K/mm3 Baso # (Auto) (0.0-0.1) K/mm3 Abs Immat Gran (auto) (0.00-0.031) K/mm3 Absolute Neuts (auto) (1.3-6.7) K/mm3 Absolute Nucleated RBC (0.0-0.012) K/mm3 Band Neutrophils % (0-6) % Nucleated RBC % (0.0-0.2) % Platelet Estimate (Adequate) % Immature Plt Fraction (0.9-11.2) % Hypochromasia Schistocytes PT (11.1-14.7) Seconds INR APTT (22.3-36.8) Seconds Sodium 140 (137-145) mmol/L Potassium 3.9 (3.4-5.0) mmol/L Chloride 109 H (98-107) mmol/L Carbon Dioxide 15 L (22-30) mmol/L Anion Gap 16 H (4-12) mmol/L BUN 19 (9-20) mg/dL Creatinine 1.77 H (0.7-1.3) mg/dL Estim Creat Clear Calc 61 ml/min Estimated GFR 42 L (59 - ) Glucose 161 H (65-110) mg/dL POC Capillary Glucose (65-105) mg/dl Hemoglobin A1c 6.6 H (<5.7) % Lactic Acid (0.7-2.0) mmol/L Calcium 8.3 L (8.4-10.2) mg/dL Magnesium (1.6-2.3) mg/dL Total Bilirubin (0.2-1.3) mg/dL AST (17-59) U/L ALT (6-50) U/L Alkaline Phosphatase (38-126) U/L NT-Pro-B Natriuret Pep 4620 H Cancelled (19.9-100) pg/mL Total Protein (6.3-8.2) g/dL Albumin (3.5-5.1) g/dL Lipase (23-300) U/L TSH (Reflex) (0.465-4.68) uIU/mL Urine Color (Yellow) Urine Appearance (Clear) Urine pH (5.0-9.0) Ur Specific [place] (1.001-1.035) Urine Protein (Negative) mg/dL Urine Glucose (UA) (Negative) mg/dL Urine Ketones (Negative) mg/dL Ur Blood (Man) (Negative) Urine Nitrate (Negative) Urine Bilirubin (Negative) Urine Urobilinogen (<2.0) mg/dL Leukocyte Esterase Rfl (Negative) MARIA VICTORIA/UL Urine RBC (0-2) /hpf Urine WBC (0-3) /hpf Ur Squamous Epith Cells (Few) /hpf Urine Bacteria /hpf Urine Casts Nasal MRSA (PCR) (NOT DETECTE) Urine Opiates Screen (Negative) Urine Methadone Screen (Negative) Ur Barbiturates Screen (Negative) Ur Phencyclidine Scrn (Negative) Ur Amphetamine Screen (Negative) U Benzodiazepines Scrn (Negative) Urine Cocaine Screen (Negative) U Cannabinoids Screen (Negative) Ethyl Alcohol (<10) mg/dL C. difficile (PCR) (NEGATIVE) Influenza A (RT-PCR) (Negative) Influenza B (RT-PCR) (Negative) RSV (RT-PCR) (Negative) SARS-CoV-2 RNA (RT-PCR) (Negative) <Samantha Pinto MD - Last Filed: 03/28/25 01:22> Imaging Data Attestation: I personally reviewed and interpreted this imaging study as follows: <Chasidy Stevenson PA-C - Last Filed: 03/27/25 23:43> Radiologist's impression: ITS Impressions Head CT 03/27/25 21:27 IMPRESSION: No acute intracranial process. Chest/Abdomen/Pelvis CT 03/27/25 21:34 IMPRESSION: Pulmonary opacities likely representing pulmonary edema. Infection, aspiration, or other pneumonitis should remain in the differential. 1.5 cm right thyroid nodule, recommend nonemergent, outpatient thyroid ultrasound for further characterization. Gallbladder hydrops as can be seen with fasting or obstruction. Correlate with biliary labs. No gallbladder inflammatory changes or stones. Dilated right renal pelvis with mild urothelial enhancement, may represent some degree of UPJ obstruction and/or pyelitis. Mild diffuse colonic wall thickening, as can be seen with colitis. Urinary bladder wall thickening may be secondary to incomplete distention or cystitis. Left femoral and inguinal lymphadenopathy. <AUTUMN Smith Last Filed: 03/27/25 23:43> ECG Data EKG #1: Attestation: I personally reviewed and interpreted this ECG as follows: <AUTUMN Smith Last Filed: 03/27/25 23:43> ECG completion date: 03/27/25 <AUTUMN Smith Last Filed: 03/27/25 23:43> ECG completion time: 19:29 <AUTUMN Smith Last Filed: 03/27/25 23:43> EKG Interpretation: normal rate (96), sinus rhythm, PVCs, non-specific ST changes and normal QT <AUTUMN Smith Last Filed: 03/27/25 23:43> Discharge Plan Discharge Clinical Impression: Sepsis, Opacities of both lungs present on chest x-ray, Colitis, Acute pyelitis, Lactic acidosis, Hypomagnesemia, SARAH (acute kidney injury), Dehydration, Cellulitis of second toe of left foot <AUTUMN Smith Last Filed: 03/27/25 23:43> Patient Disposition: Still a Patient <AUTUMN Smith Last Filed: 03/27/25 23:43> Condition: Serious <AUTUMN Smith Last Filed: 03/27/25 23:43>
[2025-03-27 21:26] LABS: Add Urine Microscopic? YES; Appearance Urine Clear (Clear); Bacteria Urine None Seen /hpf; Bilirubin Urine Negative (Negative); Blood Urine 2+ (Negative); Color Urine Yellow (Yellow); Glucose Urine UA 2+ mg/dL (Negative); Ketones Urine 1+ mg/dL (Negative); Leukocyte Esterase Ur Negative LEU/UL (Negative); Nitrate Urine Negative (Negative); Non Pathogenic Casts 0-2; Protein Urine 3+ mg/dL (Negative); Specific Grav Ur 1.012 (1.001-1.035); Squamous Epithelial Cell Urine None Seen /hpf (Few); Urobilinogen Urine 0.2 mg/dL (<2.0); WBC Urine 0-5 /hpf (0-3); pH Urine 6.5 (5.0-9.0)
[2025-03-27 21:32] LABS: Ethanol < 10 mg/dL (<10)
[2025-03-27] MEDS: MAGNESIUM SULF 2 GM/WATER 50ML 2 GM/50 ML BAG IVPB (21:50)
[2025-03-27] MEDS: PIPERACILLN/TAZ 3.375GM/NS50ML 3.375 GM/50 ML BAG IVPB (21:50)
[2025-03-27 22:03] LABS: Thyroid Stimulating Hormone Reflex 0.584 uIU/mL (0.465-4.68)
[2025-03-27 22:14] LABS: Reflex Lactic Acid Yes or No Add Lactic
--- NOTE | 2025-03-27 22:17 | PC.NURSE ---
patient educated multiple times by multiple people that he can not have anything to drink at this time, due to still actively vomiting, and dry heaving. patient asking his visitor to close the curtain and help him drink the water from the ice packs being used for cooling the patient. curtain opened, educated that we need to keep the curtain open so we can keep an eye on him
[2025-03-27 22:30] LABS: Toxigenic C. Diff NEGATIVE (NEGATIVE)
[2025-03-27 22:34] LABS: Barbiturate Screen Urine Negative (Negative); Benzodiazepines Screen Urine Negative (Negative)
[2025-03-27 22:37] LABS: Amphetamine Screen Urine Negative (Negative); Cannabinoid Screen Urine Positive (Negative); Cocaine Screen Urine Negative (Negative); Methadone Screen Urine Negative (Negative); Opiate Screen Urine Negative (Negative); Phencyclidine Screen Urine Negative (Negative)
[2025-03-27 22:59] LABS: Lactic Acid 2.1 mmol/L (0.7-2.0)
--- NOTE | 2025-03-27 23:11 | PC.NURSE ---
Assumed care of pt from JON Bourne at this time. ABX being started.
[2025-03-27] MEDS: VANCOMYCIN 1,250 MG/NS 250 ML 1,250 MG/250 ML BAG 166.67 MG IVPB (23:13)
[2025-03-27 23:17] LABS: MRSA (PCR) NOT DETECTED (NOT DETECTE)
[2025-03-27 23:51] LABS: Anion Gap 16 mmol/L (4-12); Blood Urea Nitrogen 19 mg/dL (9-20); Calcium 8.3 mg/dL (8.4-10.2); Carbon Dioxide 15 mmol/L (22-30); Chloride 109 mmol/L (98-107); Estimated CRCL calculation 61 ml/min; Estimated Glomerular Filt Rate 42; Glucose 161 mg/dL (65-110); Potassium 3.9 mmol/L (3.4-5.0); Sodium 140 mmol/L (137-145)
[2025-03-28] VITALS (17 sets, daily range): BP systolic 126–158; BP diastolic 45–76; PULSE 65–90; RESP 16–18; TEMP 36.5–38.8; O2SAT 95–100; BMI 31.6; BMI 33.0
[2025-03-28 00:01] LABS: NT Pro B Type Natriuretic Pept 4620 pg/mL (19.9-100)
[2025-03-28 00:15] LABS: Hemoglobin A1C 6.6 % (<5.7)
[2025-03-28 00:26] LABS: Alveolar/Arterial O2 Gradient 87.1 mmHg; Base Excess ABG -7.2 mEq/l (+/-2.0); Carboxyhemoglobin 0.2 % THb (0-2.0); Fractional Inspired Oxygen 21 %; HCO3 ABG 16.1 mEq/l (22.0-26.0); Methemoglobin ABG 0.3 %THb (0-1.5); Oxygen Content ABG 9.4 %vol (16.0-22.0); PCO2 ABG 26.3 mmHg (35.0-45.0); PO2 FiO2 Ratio Arterial Blood 1.48 %; Reduced Hemoglobin 39.1 %THb (0-5.0); Total Hemoglobin 11.1 g/dL (12.0-18.0); pH ABG 7.406 (7.350-7.450)
[2025-03-28] MEDS: SODIUM CHLORIDE 0.9% IV 1,000 ML 150 ML IV CONT ×3 (00:53→15:23)
[2025-03-28] MEDS: VANCOMYCIN 1,250 MG/NS 250 ML 1,250 MG/250 ML BAG 166.67 MG IVPB (01:20)
[2025-03-28] MEDS: PIPERACILLN/TAZ 3.375GM/NS50ML 3.375 GM/50 ML BAG IVPB ×4 (03:37→22:07)
[2025-03-28] MEDS: ACETAMINOPHEN 325 MG TABLET 650 MG PO ×3 (03:38→20:13)
[2025-03-28 03:47] LABS: PO2 ABG 31.1 mmHg (80.0-100.0)
[2025-03-28 03:48] LABS: Oxygen Saturation ABG 61.4 % (95.0-100.0)
[2025-03-28 03:49] LABS: Modified Allen's Test Pass; Oxyhemoglobin 60.4 % THb (90.0-100.0); Site Drawn RIGHT RADIAL
[2025-03-28 04:51] LABS: Estimated CRCL calculation 65 ml/min; Estimated Glomerular Filt Rate 45
--- NOTE | 2025-03-28 05:10 | P.HP_ITS ---
H&P: HPI History of Present Illness Date/Time: 03/28/25 05:10 Chief Complaint: Nausea and vomiting, shortness of breath Narrative: 44-year-old male with a complicated past medical history including essential hypertension, anxiety, chronic pain, type 2 diabetes mellitus, peripheral neuropathy, and mechanical mitral valve replacement in 2022 with subsequent dehiscence of the valve and replacement with tissue valve 2 weeks later who presented to the ER from home via EMS due to nausea vomiting and diarrhea for 1 day and shortness of breath for 2 hours. The patient reports to me that he been having nausea vomiting for the last day or so. He then became more short of breath. His aunt provided the majority of the history while the patient was in the ER because he was acutely encephalopathic at the time. At the time of my evaluation the patient was alert oriented to person place and year but was confused as to the month. He thought the month was August. Despite being oriented for the most part patient still is a poor historian. Thus majority of the HPI was obtained from review of past medical records and ER report. Patient had evidently been having intermittent nausea vomiting for the last few weeks. 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 So they thought the patient was having intermittent nausea vomiting due to stress. The aunts all the patient over the past 2 days any seemed to be acting at his baseline. But 2 hours prior to calling EMS the patient began having profuse nausea vomiting and diarrhea. He had numerous episodes of vomiting and diarrhea. He was evidently also complaining of diffuse abdominal pain on arrival to the ER. At the time my evaluation he only reports some mild discomfort in his right upper quadrant. He was noted to be febrile with a T-max of 103? in the ER. His labs demonstrated leukocytosis and acute kidney injury as well as metabolic acidosis. Imaging demonstrated possible colitis and lung findings suspicious for possible aspiration pneumonitis. Patient himself denies any dysuria or hematuria. His UA was not suggestive of infection but CT suggested possible pyelitis verses some degree of UPJ obstruction and bladder was thickened secondary to incomplete distention versus cystitis. The patient also had dilated gallbladder due to fasting or obstruction. Patient did have some right upper quadrant tenderness to palpation. He had a wound to noted to the tip of his 2nd toe on the left foot and some associated left inguinal lymphadenopathy with some erythema to the top of the left foot. He does have history of diabetic foot wounds at neuropathy. He also had a wound noted to the tip of the left great toe but no associated erythema of that foot. He is unable to tell me if his foot is more erythematous than at baseline. He reports that he feels significantly better at the time of my evaluation that he did when he was in the ER. Review of Systems 2 Review of Systems: 12 systems were reviewed with pertinent positives and negatives per HPI. Except as documented in the HPI, all other systems were reviewed and are negative. Although the patient is not the most reliable historian. [facility] Past Medical History Medical History (Updated 03/28/25 @ 05:36 by Sidra Gould DO) Hyperlipidemia Mitral regurgitation Diabetic neuropathy DM2 (diabetes mellitus, type 2) Neuropathy HTN (hypertension) with goal to be determined Kidney stones COPD (chronic obstructive pulmonary disease) Depression with anxiety History of diabetes mellitus History of COPD History of hypertension Surgical History Surgical History (Updated 03/28/25 @ 05:23 by Sidra Gould DO) Prosthetic mitral valve failure requiring replacement Patient had a metal mitral valve replacement place in 2022 and had 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 with secondary tissue valve replacement within 2 weeks of original procedure H/O tooth extraction History of lithotripsy History of cardiac catheterization 2013, no coronary artery disease with repeat heart catheterization 2022 with placement of 2 stents Family History Family History Mother Cerebrovascular accident Hypertension Depression Father Diabetes mellitus Heart disease Cancer before age 60 Acute myocardial infarction Grandparent Heart disease COPD (chronic obstructive pulmonary disease) Kidney disease Social History Social History (Updated 03/28/25 @ 05:15 by Sidra Gould DO) Social History: The patient is and lives with his He has 3 children. 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 He used to smoke 2-3 packs of cigarettes per day but quit smoking in 2022 when he had his mitral valve replaced. He denies any alcohol. He uses marijuana. Code status: Full code Surrogate decision maker: Malia () Smoking packs per day: 2 Smoking cigarettes per day: 40.0 Years smoked: 30 Smoking pack-years: 60.00 Smoking status: Former smoker Tobacco type: cigarettes Second hand tobacco smoke exposure: Yes Alcohol intake: never Substance use: current Substance use type: marijuana Last use: 1 month ago Do You Feel Safe in your Home?: Yes Lack of Transportation: No Lack of Food: Never True Current Housing: I Have Housing Concerned About Future Housing: YES Difficulty Paying Gas/Electric Bills: No Difficulty Paying for Meds: No Currently Unemployed: No Education: High School Diploma/GED Difficulty w/ Childcare or Family Care: No Gender identity (if verbalized by the patient): Male Spiritual care concerns: No Meds Home Medications and Allergies Home Medications ?Medication ?Instructions ?Recorded ?Confirmed ?Type gabapentin 300 mg capsule 400 mg PO QID PRN Muscle Pain 04/27/20 03/28/25 History atorvastatin 80 mg tablet 40 mg PO DAILY 03/23/23 03/28/25 History sertraline 100 mg tablet 150 mg PO HS 03/23/23 03/28/25 History buspirone 15 mg tablet 15 mg PO DAILY PRN anxiey 09/18/23 03/28/25 History cyclobenzaprine 10 mg tablet 10 mg PO DAILY PRN muscle cramps 09/18/23 03/28/25 History amlodipine 10 mg tablet 10 mg PO DAILY 03/28/25 03/28/25 History aspirin 81 mg chewable tablet 1 tablet PO DAILY 03/28/25 03/28/25 History carvedilol 25 mg tablet 25 mg PO Q12H 03/28/25 03/28/25 History ergocalciferol (vitamin D2) 1,250 1,250 mcg PO WEEKLY 03/28/25 03/28/25 History mcg (50,000 unit) capsule folic acid 1 mg tablet 1 mg PO DAILY 03/28/25 03/28/25 History hydralazine 25 mg tablet 25 mg PO DAILY 03/28/25 03/28/25 History hydroxyzine HCl 10 mg tablet 10 mg PO Q8H PRN anxiety 03/28/25 03/28/25 History losartan 25 mg tablet 25 mg PO DAILY 03/28/25 03/28/25 History losartan 50 mg tablet 50 mg PO DAILY 03/28/25 03/28/25 History methocarbamol 500 mg tablet 500 mg PO DAILY 03/28/25 03/28/25 History metoprolol succinate 25 mg 25 mg PO Q12H 03/28/25 03/28/25 History tablet,extended release 24 hr oxycodone 5 mg tablet 5 mg PO Q6H PRN pain 03/28/25 03/28/25 History pantoprazole 40 mg tablet,delayed 40 mg PO Q12H 03/28/25 03/28/25 History release rivaroxaban 20 mg tablet (Xarelto) 20 mg PO QPM 03/28/25 03/28/25 History zolpidem 10 mg tablet 10 mg PO QHS 03/28/25 03/28/25 History Allergies Allergy/AdvReac Type Severity Reaction Status Date / Time tramadol AdvReac Hallucinati Verified 03/28/25 00:15 ng Vital Signs Vital Signs - 24 hr 03/27/25 19:30 03/27/25 20:21 03/27/25 20:21 Temperature 102.8 F H Pulse Rate 97 96 93 Respiratory Rate 16 22 H 26 H Blood Pressure 215/95 H 192/89 H Pulse Oximetry 98 100 Oxygen Delivery Room Air 03/27/25 20:27 03/27/25 20:30 03/27/25 20:32 Temperature Pulse Rate 96 95 96 Respiratory Rate 18 26 H 22 H Blood Pressure 159/48 H 182/162 H Pulse Oximetry 100 100 100 Oxygen Delivery 03/27/25 20:38 03/27/25 20:46 03/27/25 20:47 Temperature Pulse Rate 98 97 97 Respiratory Rate 26 H 19 20 Blood Pressure 178/87 H 197/73 H Pulse Oximetry 100 100 Oxygen Delivery 03/27/25 20:53 03/27/25 21:02 03/27/25 21:09 Temperature 101.5 F H 103.0 F H Pulse Rate 99 103 H Respiratory Rate 20 18 Blood Pressure 201/99 H Pulse Oximetry 100 Oxygen Delivery 03/27/25 21:35 03/27/25 21:45 03/27/25 21:46 Temperature 99.8 F H Pulse Rate 93 92 92 Respiratory Rate 22 H 19 16 Blood Pressure 170/75 H Pulse Oximetry 94 97 100 Oxygen Delivery 03/27/25 21:48 03/27/25 22:09 03/27/25 22:15 Temperature Pulse Rate 92 89 86 Respiratory Rate 17 17 19 Blood Pressure 170/75 H Pulse Oximetry 97 96 96 Oxygen Delivery 03/27/25 22:17 03/27/25 23:11 03/28/25 00:40 Temperature 100.2 F H Pulse Rate 83 84 76 Respiratory Rate 20 16 16 Blood Pressure 152/74 H 162/75 H 154/76 H Pulse Oximetry 95 98 96 Oxygen Delivery 03/28/25 00:50 03/28/25 03:46 Temperature 99.5 F Pulse Rate 77 Respiratory Rate 18 Blood Pressure 137/58 L Pulse Oximetry 96 Oxygen Delivery Room Air Exam 2 Narrative: Weight 110.5 kg BMI 33 Const: Other: obese, mildly ill-appearing, appears older than stated age HENMT: Other: Mucous membranes are dry, markedly crowded posterior oropharynx edentulous in upper and lower jaw Eyes: Other: Positive conjunctival pallor, no scleral icterus, pupils are equal and reactive Neck: Other: Large neck circumference, trachea midline, no JVD Resp: Other: Clear to auscultation bilaterally, no increased work of breathing Cardio: Other: Regular rate, regular rhythm, 2+ bilateral radial pedal pulses, no murmur GI: Other: Soft, tenderness in the right upper quadrant, normoactive bowel sounds, obese Skin: Other: No jaundice, generalized pallor, normal temperature to touch Neuro: Other: Patient is alert oriented person, place, year and name of the current president he thought the month was August, has no localizing neurologic deficits, decreased sensation in bilateral feet consistent with history of neuropathy, no pronator drift Extrem: Other: No coat clubbing, cyanosis or edema, ulceration to the right 2nd toe with erythema to the top of the right 2nd toe and extending up the forefoot,, ulceration to the tip of the great toe on the right Psych: Other: Odd affect, cooperative, fair judgment H&P: Results Labs Labs: Laboratory Tests 03/27/25 20:00 03/28/25 04:21 03/27/25 03/27/25 03/27/25 19:55 20:00 20:02 WBC 15.1 H RBC 3.86 L Hgb 10.3 L Hct 33.7 L MCV 87.3 MCH 26.7 MCHC 30.6 L RDW 14.9 H Plt Count 337 MPV 11.5 H Immature Gran % (Auto) 1.1 H Neut % (Auto) 92.7 H Lymph % (Auto) 2.7 L [place] % (Auto) 3.0 Eos % (Auto) 0.2 Baso % (Auto) 0.3 Lymph # (Auto) 0.41 L [place] # (Auto) 0.5 Eos # (Auto) 0.0 Baso # (Auto) 0.1 Abs Immat Gran (auto) 0.16 H Absolute Neuts (auto) 14.0 H Absolute Nucleated RBC 0.000 Band Neutrophils % 0 Nucleated RBC % 0.0 Platelet Estimate Adequate % Immature Plt Fraction 4.4 Hypochromasia 1+ Schistocytes None seen PT 15.3 H INR 1.2 APTT 32.0 Puncture Site ABG pH ABG pCO2 ABG pO2 ABG PO2/FiO2 Ratio ABG HCO3 ABG O2 Saturation ABG O2 Content ABG Base Excess A-a Gradient Oxyhemoglobin Carboxyhemoglobin Methemoglobin Reduced Hemoglobin Total Hemoglobin O2 Delivery Device O2 Liters/Min FiO2 Sodium 140 Potassium 4.5 Chloride 109 H Carbon Dioxide 13 L Anion Gap 18 H BUN 20 Creatinine 1.75 H Estim Creat Clear Calc 62 Estimated GFR 43 L Glucose 154 H POC Capillary Glucose 148 H Hemoglobin A1c Lactic Acid 4.3 H* Calcium 9.4 Magnesium 1.4 L Total Bilirubin 0.8 AST 35 ALT 25 Alkaline Phosphatase 236 H NT-Pro-B Natriuret Pep Total Protein 9.0 H Albumin 4.6 Lipase 63 TSH (Reflex) 0.584 Urine Color Urine Appearance Urine pH Ur Specific [place] Urine Protein Urine Glucose (UA) Urine Ketones Ur Blood (Man) Urine Nitrate Urine Bilirubin Urine Urobilinogen Leukocyte Esterase Rfl Urine RBC Urine WBC Ur Squamous Epith Cells Urine Bacteria Urine Casts Nasal MRSA (PCR) Urine Opiates Screen Urine Methadone Screen Ur Barbiturates Screen Ur Phencyclidine Scrn Ur Amphetamine Screen U Benzodiazepines Scrn Urine Cocaine Screen U Cannabinoids Screen Ethyl Alcohol < 10 C. difficile (PCR) Influenza A (RT-PCR) Negative Influenza B (RT-PCR) Negative RSV (RT-PCR) Negative SARS-CoV-2 RNA (RT-PCR) Negative 03/27/25 03/27/25 03/27/25 21:14 21:59 22:27 WBC RBC Hgb Hct MCV MCH MCHC RDW Plt Count MPV Immature Gran % (Auto) Neut % (Auto) Lymph % (Auto) [place] % (Auto) Eos % (Auto) Baso % (Auto) Lymph # (Auto) [place] # (Auto) Eos # (Auto) Baso # (Auto) Abs Immat Gran (auto) Absolute Neuts (auto) Absolute Nucleated RBC Band Neutrophils % Nucleated RBC % Platelet Estimate % Immature Plt Fraction Hypochromasia Schistocytes PT INR APTT Puncture Site ABG pH ABG pCO2 ABG pO2 ABG PO2/FiO2 Ratio ABG HCO3 ABG O2 Saturation ABG O2 Content ABG Base Excess A-a Gradient Oxyhemoglobin Carboxyhemoglobin Methemoglobin Reduced Hemoglobin Total Hemoglobin O2 Delivery Device O2 Liters/Min FiO2 Sodium Potassium Chloride Carbon Dioxide Anion Gap BUN Creatinine Estim Creat Clear Calc Estimated GFR Glucose POC Capillary Glucose Hemoglobin A1c Lactic Acid 2.1 H Calcium Magnesium Total Bilirubin AST ALT Alkaline Phosphatase NT-Pro-B Natriuret Pep Total Protein Albumin Lipase TSH (Reflex) Urine Color Yellow Urine Appearance Clear Urine pH 6.5 Ur Specific [place] 1.012 Urine Protein 3+ H Urine Glucose (UA) 2+ H Urine Ketones 1+ H Ur Blood (Man) 2+ H Urine Nitrate Negative Urine Bilirubin Negative Urine Urobilinogen 0.2 Leukocyte Esterase Rfl Negative Urine RBC 11-20 H Urine WBC 0-5 Ur Squamous Epith Cells None seen Urine Bacteria None seen Urine Casts 0-2 Nasal MRSA (PCR) Not detected Urine Opiates Screen Negative Urine Methadone Screen Negative Ur Barbiturates Screen Negative Ur Phencyclidine Scrn Negative Ur Amphetamine Screen Negative U Benzodiazepines Scrn Negative Urine Cocaine Screen Negative U Cannabinoids Screen Positive A Ethyl Alcohol C. difficile (PCR) Negative Influenza A (RT-PCR) Influenza B (RT-PCR) RSV (RT-PCR) SARS-CoV-2 RNA (RT-PCR) 03/27/25 03/27/25 03/28/25 23:29 23:29 00:03 WBC RBC Hgb Hct MCV MCH MCHC RDW Plt Count MPV Immature Gran % (Auto) Neut % (Auto) Lymph % (Auto) [place] % (Auto) Eos % (Auto) Baso % (Auto) Lymph # (Auto) [place] # (Auto) Eos # (Auto) Baso # (Auto) Abs Immat Gran (auto) Absolute Neuts (auto) Absolute Nucleated RBC Band Neutrophils % Nucleated RBC % Platelet Estimate % Immature Plt Fraction Hypochromasia Schistocytes PT INR APTT Puncture Site Right radial ABG pH 7.406 ABG pCO2 26.3 L ABG pO2 31.1 L* ABG PO2/FiO2 Ratio 1.48 ABG HCO3 16.1 L ABG O2 Saturation 61.4 L* ABG O2 Content 9.4 L ABG Base Excess -7.2 A-a Gradient 87.1 Oxyhemoglobin 60.4 L* Carboxyhemoglobin 0.2 Methemoglobin 0.3 Reduced Hemoglobin 39.1 H Total Hemoglobin 11.1 L O2 Delivery Device Not Reportable O2 Liters/Min Not Reportable FiO2 21 Sodium 140 Potassium 3.9 Chloride 109 H Carbon Dioxide 15 L Anion Gap 16 H BUN 19 Creatinine 1.77 H Estim Creat Clear Calc 61 Estimated GFR 42 L Glucose 161 H POC Capillary Glucose Hemoglobin A1c 6.6 H Lactic Acid Calcium 8.3 L Magnesium Total Bilirubin AST ALT Alkaline Phosphatase NT-Pro-B Natriuret Pep 4620 H Cancelled Total Protein Albumin Lipase TSH (Reflex) Urine Color Urine Appearance Urine pH Ur Specific [place] Urine Protein Urine Glucose (UA) Urine Ketones Ur Blood (Man) Urine Nitrate Urine Bilirubin Urine Urobilinogen Leukocyte Esterase Rfl Urine RBC Urine WBC Ur Squamous Epith Cells Urine Bacteria Urine Casts Nasal MRSA (PCR) Urine Opiates Screen Urine Methadone Screen Ur Barbiturates Screen Ur Phencyclidine Scrn Ur Amphetamine Screen U Benzodiazepines Scrn Urine Cocaine Screen U Cannabinoids Screen Ethyl Alcohol C. difficile (PCR) Influenza A (RT-PCR) Influenza B (RT-PCR) RSV (RT-PCR) SARS-CoV-2 RNA (RT-PCR) 03/28/25 04:21 WBC RBC Hgb Hct MCV MCH MCHC RDW Plt Count MPV Immature Gran % (Auto) Neut % (Auto) Lymph % (Auto) [place] % (Auto) Eos % (Auto) Baso % (Auto) Lymph # (Auto) [place] # (Auto) Eos # (Auto) Baso # (Auto) Abs Immat Gran (auto) Absolute Neuts (auto) Absolute Nucleated RBC Band Neutrophils % Nucleated RBC % Platelet Estimate % Immature Plt Fraction Hypochromasia Schistocytes PT INR APTT Puncture Site ABG pH ABG pCO2 ABG pO2 ABG PO2/FiO2 Ratio ABG HCO3 ABG O2 Saturation ABG O2 Content ABG Base Excess A-a Gradient Oxyhemoglobin Carboxyhemoglobin Methemoglobin Reduced Hemoglobin Total Hemoglobin O2 Delivery Device O2 Liters/Min FiO2 Sodium Potassium Chloride Carbon Dioxide Anion Gap BUN Creatinine 1.68 H Estim Creat Clear Calc 65 Estimated GFR 45 L Glucose POC Capillary Glucose Hemoglobin A1c Lactic Acid Calcium Magnesium Total Bilirubin AST ALT Alkaline Phosphatase NT-Pro-B Natriuret Pep Total Protein Albumin Lipase TSH (Reflex) Urine Color Urine Appearance Urine pH Ur Specific [place] Urine Protein Urine Glucose (UA) Urine Ketones Ur Blood (Man) Urine Nitrate Urine Bilirubin Urine Urobilinogen Leukocyte Esterase Rfl Urine RBC Urine WBC Ur Squamous Epith Cells Urine Bacteria Urine Casts Nasal MRSA (PCR) Urine Opiates Screen Urine Methadone Screen Ur Barbiturates Screen Ur Phencyclidine Scrn Ur Amphetamine Screen U Benzodiazepines Scrn Urine Cocaine Screen U Cannabinoids Screen Ethyl Alcohol C. difficile (PCR) Influenza A (RT-PCR) Influenza B (RT-PCR) RSV (RT-PCR) SARS-CoV-2 RNA (RT-PCR) Impressions Head CT 03/27/25 21:27 IMPRESSION: No acute intracranial process. Chest/Abdomen/Pelvis CT 03/27/25 21:34 IMPRESSION: Pulmonary opacities likely representing pulmonary edema. Infection, aspiration, or other pneumonitis should remain in the differential. 1.5 cm right thyroid nodule, recommend nonemergent, outpatient thyroid ultrasound for further characterization. Gallbladder hydrops as can be seen with fasting or obstruction. Correlate with biliary labs. No gallbladder inflammatory changes or stones. Dilated right renal pelvis with mild urothelial enhancement, may represent some degree of UPJ obstruction and/or pyelitis. Mild diffuse colonic wall thickening, as can be seen with colitis. Urinary bladder wall thickening may be secondary to incomplete distention or cystitis. Left femoral and inguinal lymphadenopathy. Foot X-Ray 03/28/25 00:28 IMPRESSION: Osteomyelitis involving the tip of the left second distal phalanx. EKG: Reviewed All imaging and EKGs personally reviewed and interpreted. And unless stated otherwise agree with radiologic and cardiology interpretation. Assessment and Plan Assessment and plan (1) Severe sepsis: Code(s): A41.9 - Sepsis, unspecified organism; R65.20 - Severe sepsis without septic shock Status: Acute (2) Colitis: Code(s): K52.9 - Noninfective gastroenteritis and colitis, unspecified Status: Acute (3) Cellulitis of second toe of left foot: Code(s): L03.032 - Cellulitis of left toe Status: Acute (4) SARAH (acute kidney injury): Code(s): N17.9 - Acute kidney failure, unspecified Status: Acute (5) Lactic acidosis: Code(s): E87.20 - Acidosis, unspecified Status: Acute (6) Opacities of both lungs present on chest x-ray: Code(s): R91.8 - Other nonspecific abnormal finding of lung field Status: Acute (7) Dehydration: Code(s): E86.0 - Dehydration Status: Acute (8) Hypomagnesemia: Code(s): E83.42 - Hypomagnesemia Status: Acute (9) Right upper quadrant pain: Code(s): R10.11 - Right upper quadrant pain Status: Acute Plan Severe sepsis possibly multifactorial but I suspect primary cause is likely colitis. Patient been started empiric antibiotic therapy with Zosyn. Patient is having some right upper quadrant pain with abnormal CT of the abdomen pelvis. Will obtain right upper quadrant ultrasound his evaluate if there may be some pericholecystic inflammation. And will repeat CMP to rule out any transaminitis to suggest acute cholangitis. Stool was already tested for C diff in found to be negative. Stool cultures pending. Blood cultures have been obtained and are pending. CT did demonstrate possible Michel lightest but given appearance of the patient's UA by technology analyst this is less likely and changes are most likely due to UPJ obstruction. The patient does have imaging findings concerning for possible pneumonitis and given his presentation with severe vomiting there could be some component of aspiration pneumonitis but patient is not having any respiratory symptoms at this time and is satting 95% on room air. He has no exam findings concerning for acute pneumonia. Will continue to monitor. I suspect the patient likely has some underlying obstructive sleep apnea but he reports he has never been tested for sleep apnea. He has not had any observed episodes of hypoxia with sleep at the time of my evaluation. He would benefit from outpatient polysomnogram. Patient was found to be low on magnesium and received 2 g magnesium sulfate rider in the ER. Will repeat magnesium level in a.m. and provide further supplementation if indicated. He does have acute kidney injury likely secondary to severe sepsis from the above factors and dehydration. Will avoid nephrotoxic medications. And will hold the patient's home losartan. Will monitor strict I&O's. Will continue IV fluid hydration and re-evaluate fluid status in a.m. after repeat electrolyte panel. Patient does have ulceration at the 2nd left toe with overlying erythema extending up the forefoot but no increased warmth compared to the remainder of the patient's extremity. This could be acute versus chronic. Imaging does suggest some underlying osteomyelitis. Will continue empiric antibiotic therapy with vancomycin. Will check MRSA PCR. The patient's home med recs are somewhat odd. The patient is on 2 different types of beta-blockers. If Maria Teresa ideal if we could verify the patient's home medications but the patient's unfortunately is in the hospital herself and would be the person to provide this information. Maybe we can obtain information from the patient's pharmacy and or primary care provider. Otherwise the remainder the patient's home medications have been reconciled and reviewed and resumed as appropriate. Given the patient's metabolic encephalopathy I did hold several of the patient's sedating medications. Quality VTE Prophylaxis VTE prophylaxis: pharmacologic ordered (Continue home Xarelto) Hospitalist [facility] Advance Care Plan I have confirmed that the patient's Advanced Care Plan is present, code status is documented, or surrogate decision maker is listed in patient medical record.: Yes Medication Reconciliation I have utilized all available resources to obtain, update and review the patients current medications (includes all prescriptions, OTC, herbals, cannabis, and nutritional supplements).: Yes
[2025-03-28 06:37] LABS: Basophils Percent Auto 0.2 % (0.2-1.2); Eosinophils Percent Auto 0.1 % (0-4.4); Hematocrit 27.6 % (42.0-52.0); Hemoglobin 8.5 g/dL (14.0-18.0); Immature Granulocyte Absolute 0.12 K/mm3 (0.00-0.031); Immature Granulocyte Percent A 0.9 % (0-0.5); Lymphocytes Absolute Auto 0.48 K/mm3 (0.9-3.2); Lymphocytes Percent Auto 3.7 % (18.3-44.2); Mean Corpuscular HGB Conc 30.8 g/dl (32-36); Mean Corpuscular Hemoglobin 27.2 pg (26-34); Mean Corpuscular Volume 88.2 fl (80-100); Mean Platelet Volume 10.9 fl (7.4-10.4); Monocytes Absolute Auto 0.5 K/mm3 (0.1-0.6); Monocytes Percent Auto 3.5 % (2.6-8.5); Neutrophils Percent Auto 91.6 % (45.5-73.1); Platelet Count Result 247 k/mm3 (150-375); Red Blood Count 3.13 M/mm3 (4.6-6.20); Red Cell Distribution Width 15.2 % (11.5-14.5)
[2025-03-28 06:46] LABS: Alanine Aminotransferase 12 U/L (6-50); Albumin Level 3.3 g/dL (3.5-5.1); Alkaline Phosphatase 148 U/L (38-126); Anion Gap 11 mmol/L (4-12); Aspartate Amino Transferase 24 U/L (17-59); Bilirubin,Total 0.4 mg/dL (0.2-1.3); Blood Urea Nitrogen 18 mg/dL (9-20); Calcium 7.6 mg/dL (8.4-10.2); Carbon Dioxide 17 mmol/L (22-30); Chloride 111 mmol/L (98-107); Estimated CRCL calculation 64 ml/min; Estimated Glomerular Filt Rate 43; Glucose 142 mg/dL (65-110); Magnesium 1.8 mg/dL (1.6-2.3); Phosphorus 3.2 mg/dL (2.5-4.5); Potassium 3.6 mmol/L (3.4-5.0); Sodium 139 mmol/L (137-145)
[2025-03-28 06:47] LABS: Lactic Acid Reflex 0.7 mmol/L (0.7-2.0)
[2025-03-28 07:38] LABS: Anisocytosis 1+; Platelet Estimate Adequate (Adequate); Schistocytes None Seen
[2025-03-28 07:53] LABS: Glucose Point of Care 122 mg/dl (65-105)
[2025-03-28] MEDS: ONDANSETRON INJ 4 MG/2 ML VIAL IV PUSH ×2 (08:17→20:20)
[2025-03-28] MEDS: ASPIRIN 81 MG CHEWABLE TABLET PO (08:54)
[2025-03-28] MEDS: hydrALAZINE HCL 25 MG TABLET PO (09:47)
[2025-03-28] MEDS: FOLIC ACID 1 MG TABLET PO (09:47)
[2025-03-28] MEDS: ATORVASTATIN 40 MG TABLET 80 MG PO (09:47)
[2025-03-28] MEDS: PANTOPRAZOLE 40 MG TABLET PO ×2 (09:48→20:14)
[2025-03-28] MEDS: amLODIPine BESYLATE 10 MG TABLET PO (09:48)
--- NOTE | 2025-03-28 10:19 | PM.IMPN ---
Progress Note: A&P Assessment and Plan (1) Severe sepsis: Code(s): A41.9 - Sepsis, unspecified organism; R65.20 - Severe sepsis without septic shock Status: Acute Assessment and Plan: Possibly due to colitis Started Zosyn (2) Colitis: Code(s): K52.9 - Noninfective gastroenteritis and colitis, unspecified Status: Acute Assessment and Plan: C diff negative (3) Cellulitis of second toe of left foot: Code(s): L03.032 - Cellulitis of left toe Status: Acute Assessment and Plan: On vancomycin Nasal MRSA (4) SARAH (acute kidney injury): Code(s): N17.9 - Acute kidney failure, unspecified Status: Acute Assessment and Plan: Possibly due to sepsis Avoid nephrotoxic drugs Trend BUN and creatinine Hold Losartan (5) Lactic acidosis: Code(s): E87.20 - Acidosis, unspecified Status: Acute (6) Opacities of both lungs present on chest x-ray: Code(s): R91.8 - Other nonspecific abnormal finding of lung field Status: Acute (7) Dehydration: Code(s): E86.0 - Dehydration Status: Acute (8) Hypomagnesemia: Code(s): E83.42 - Hypomagnesemia Status: Acute (9) Right upper quadrant pain: Code(s): R10.11 - Right upper quadrant pain Status: Acute Assessment and Plan: Pending RUQ ultrasound Subjective Date/time seen: 03/28/25 10:19 Interval history: Interval Hx: 44-year-old male with a complicated past medical history including essential hypertension, anxiety, chronic pain, type 2 diabetes mellitus, peripheral neuropathy, and mechanical mitral valve replacement in 2022 with subsequent dehiscence of the valve and replacement with tissue valve 2 weeks later who presented to the ER from home via EMS due to nausea vomiting and diarrhea for 1 day and shortness of breath for 2 hours. Patient reports currently he is feeling better. During the evaluation patient reports he had mechanical valve which was placed on November 27, 2023 and got infected and 2 weeks later he was replaced with cow valve Review of Systems Review of Systems: 12 systems were reviewed with pertinent positives and negatives per HPI. Except as documented in the HPI, all other systems were reviewed and are negative. Although the patient is not the most reliable historian. Exam Narrative: Weight 110.5 kg BMI 33 Const: Other: obese, mildly ill-appearing, appears older than stated age HENMT: Other: Mucous membranes are dry, markedly crowded posterior oropharynx edentulous in upper and lower jaw Eyes: Other: Positive conjunctival pallor, no scleral icterus, pupils are equal and reactive Neck: Other: Large neck circumference, trachea midline, no JVD Resp: Other: Clear to auscultation bilaterally, no increased work of breathing Cardio: Other: Regular rate, regular rhythm, 2+ bilateral radial pedal pulses, no murmur GI: Other: Soft, tenderness in the right upper quadrant, normoactive bowel sounds, obese Skin: Other: No jaundice, generalized pallor, normal temperature to touch Neuro: Other: Patient is alert oriented person, place, year and name of the current president he thought the month was August, has no localizing neurologic deficits, decreased sensation in bilateral feet consistent with history of neuropathy, no pronator drift Extrem: Other: No coat clubbing, cyanosis or edema, ulceration to the right 2nd toe with erythema to the top of the right 2nd toe and extending up the forefoot,, ulceration to the tip of the great toe on the right Psych: Other: Odd affect, cooperative, fair judgment Objective Data Vital Signs Vital Signs: Vital Signs - 24 hr 03/27/25 19:30 03/27/25 20:21 03/27/25 20:21 Temperature 102.8 F H Pulse Rate 97 96 93 Respiratory Rate 16 22 H 26 H Blood Pressure 215/95 H 192/89 H Pulse Oximetry 98 100 Oxygen Delivery Room Air 03/27/25 20:27 03/27/25 20:30 03/27/25 20:32 Temperature Pulse Rate 96 95 96 Respiratory Rate 18 26 H 22 H Blood Pressure 159/48 H 182/162 H Pulse Oximetry 100 100 100 Oxygen Delivery 03/27/25 20:38 03/27/25 20:46 03/27/25 20:47 Temperature Pulse Rate 98 97 97 Respiratory Rate 26 H 19 20 Blood Pressure 178/87 H 197/73 H Pulse Oximetry 100 100 Oxygen Delivery 03/27/25 20:53 03/27/25 21:02 03/27/25 21:09 Temperature 101.5 F H 103.0 F H Pulse Rate 99 103 H Respiratory Rate 20 18 Blood Pressure 201/99 H Pulse Oximetry 100 Oxygen Delivery 03/27/25 21:35 03/27/25 21:45 03/27/25 21:46 Temperature 99.8 F H Pulse Rate 93 92 92 Respiratory Rate 22 H 19 16 Blood Pressure 170/75 H Pulse Oximetry 94 97 100 Oxygen Delivery 03/27/25 21:48 03/27/25 22:09 03/27/25 22:15 Temperature Pulse Rate 92 89 86 Respiratory Rate 17 17 19 Blood Pressure 170/75 H Pulse Oximetry 97 96 96 Oxygen Delivery 03/27/25 22:17 03/27/25 23:11 03/28/25 00:40 Temperature 100.2 F H Pulse Rate 83 84 76 Respiratory Rate 20 16 16 Blood Pressure 152/74 H 162/75 H 154/76 H Pulse Oximetry 95 98 96 Oxygen Delivery 03/28/25 00:50 03/28/25 02:00 03/28/25 03:46 Temperature 99.5 F Pulse Rate 77 77 Respiratory Rate 18 Blood Pressure 137/58 L Pulse Oximetry 96 Oxygen Delivery Room Air 03/28/25 04:00 03/28/25 04:00 03/28/25 06:00 Temperature Pulse Rate 74 70 Respiratory Rate Blood Pressure Pulse Oximetry Oxygen Delivery Room Air 03/28/25 08:00 Temperature 98.1 F Pulse Rate 77 Respiratory Rate 16 Blood Pressure 158/69 H Pulse Oximetry 95 Oxygen Delivery Intake/Output Intake/Output: Intake & Output 03/25/25 03/26/25 03/27/25 03/28/25 23:59 23:59 23:59 23:59 Intake Total 2100 2100 Output Total 300 Balance 2100 1800 Meds/Results Medications: Active Medications Generic Name Dose Route Start Last Admin Trade Name Angela PRN Reason Stop Dose Admin Acetaminophen 650 mg 03/27/25 23:39 03/28/25 03:38 Acetaminophen 325 Mg Tablet PO 650 mg Q4H PRN Administration Mild Pain (1-3) or Fever Amlodipine Besylate 10 mg 03/28/25 09:00 03/28/25 09:48 Amlodipine Besylate 10 Mg Tablet PO 10 mg DAILY REYNA Administration Aspirin 81 mg 03/28/25 08:00 03/28/25 08:54 Aspirin 81 Mg Chewable Tablet PO 81 mg DAILY@0800 REYNA Administration Atorvastatin Calcium 80 mg 03/28/25 09:00 03/28/25 09:47 Atorvastatin 40 Mg Tablet PO 80 mg DAILY REYNA Administration Buspirone HCl 15 mg 05/20/25 04:53 Buspirone Hcl 5 Mg Tablet PO BID PRN anxiety Dextrose 12.5 gm 03/28/25 05:17 Dextrose 50% 25 Gm/50 Ml Syringe IV PUSH PRN PRN Hypoglycemia Protocol Folic Acid 1 mg 03/28/25 09:00 03/28/25 09:47 Folic Acid 1 Mg Tablet PO 1 mg DAILY REYNA Administration Glucagon 1 mg 03/28/25 05:17 Glucagon For Inj 1 Mg Vial IM PRN PRN Hypoglycemia Protocol Glucose 15 gm 03/28/25 05:17 Glucose Oral Gel 15 Gm Of Glucse In 37.5 Gm Tube PO PRN PRN Hypoglycemia Protocol Hydralazine HCl 25 mg 03/28/25 09:00 03/28/25 09:47 Hydralazine Hcl 25 Mg Tablet PO 25 mg DAILY REYNA Administration Piperacillin/Tazobactam/Dextrose 3.375 gm in 50 mls @ 100 mls/hr 03/28/25 04:00 03/28/25 09:48 Zosyn 3.375 Gm/Ns 50 Ml IVPB 100 mls/hr Q6H REYNA Administration Vancomycin HCl 1,500 mg in 500 mls @ 250 mls/hr 03/28/25 17:00 Vancomycin 1,500 Mg/Ns 500 Ml IVPB Q18H REYNA Sodium Chloride 1,000 mls @ 150 mls/hr 03/27/25 23:40 03/28/25 08:17 Normal Saline Iv IV CONT 150 mls/hr .Q6H40M REYNA Administration Dextrose 1,000 mls @ 100 mls/hr 03/28/25 05:17 Dextrose 5% 1,000 Ml IVPB PRN PRN Hypoglycemia Protocol Insulin Aspart 3 - 6 units 03/28/25 08:00 03/28/25 08:55 Insulin Aspart (*Bkc) 100 Units/Ml SUB-Q Not Given TIDWM [facility] Protocol Insulin Aspart 1 - 3 units 03/28/25 21:00 Insulin Aspart (*Bkc) 100 Units/Ml SUB-Q HS [facility] Protocol Ondansetron HCl 4 mg 03/27/25 23:39 03/28/25 08:17 Ondansetron Inj 4 Mg/2 Ml Vial IV PUSH 4 mg Q4H PRN Administration Nausea Oxycodone HCl 5 mg 03/28/25 04:40 Oxycodone Hcl (*Crx) 5 Mg Tab Ir PO Q6H PRN pain 7-10 Pantoprazole Sodium 40 mg 03/28/25 09:00 03/28/25 09:48 Pantoprazole 40 Mg Tablet PO 40 mg Q12HR REYNA Administration Rivaroxaban 20 mg 03/28/25 17:00 Rivaroxaban 20 Mg Tablet PO DAILY@1700 REYNA Sertraline HCl 150 mg 03/28/25 21:00 Sertraline Hcl 50 Mg Tablet PO HS REYNA Radiology Results: ITS Impressions Head CT 03/27/25 21:27 IMPRESSION: No acute intracranial process. Chest/Abdomen/Pelvis CT 03/27/25 21:34 IMPRESSION: Pulmonary opacities likely representing pulmonary edema. Infection, aspiration, or other pneumonitis should remain in the differential. 1.5 cm right thyroid nodule, recommend nonemergent, outpatient thyroid ultrasound for further characterization. Gallbladder hydrops as can be seen with fasting or obstruction. Correlate with biliary labs. No gallbladder inflammatory changes or stones. Dilated right renal pelvis with mild urothelial enhancement, may represent some degree of UPJ obstruction and/or pyelitis. Mild diffuse colonic wall thickening, as can be seen with colitis. Urinary bladder wall thickening may be secondary to incomplete distention or cystitis. Left femoral and inguinal lymphadenopathy. Foot X-Ray 03/28/25 00:28 IMPRESSION: Osteomyelitis involving the tip of the left second distal phalanx. Labs Labs: Laboratory Results - last 24 hr 03/27/25 03/27/25 03/27/25 19:55 20:00 20:02 WBC 15.1 H RBC 3.86 L Hgb 10.3 L Hct 33.7 L MCV 87.3 MCH 26.7 MCHC 30.6 L RDW 14.9 H Plt Count 337 MPV 11.5 H Immature Gran % (Auto) 1.1 H Neut % (Auto) 92.7 H Lymph % (Auto) 2.7 L [place] % (Auto) 3.0 Eos % (Auto) 0.2 Baso % (Auto) 0.3 Lymph # (Auto) 0.41 L [place] # (Auto) 0.5 Eos # (Auto) 0.0 Baso # (Auto) 0.1 Abs Immat Gran (auto) 0.16 H Absolute Neuts (auto) 14.0 H Absolute Nucleated RBC 0.000 Band Neutrophils % 0 Nucleated RBC % 0.0 Platelet Estimate Adequate % Immature Plt Fraction 4.4 Hypochromasia 1+ Anisocytosis Schistocytes None seen PT 15.3 H INR 1.2 APTT 32.0 Puncture Site ABG pH ABG pCO2 ABG pO2 ABG PO2/FiO2 Ratio ABG HCO3 ABG O2 Saturation ABG O2 Content ABG Base Excess A-a Gradient Oxyhemoglobin Carboxyhemoglobin Methemoglobin Reduced Hemoglobin Total Hemoglobin O2 Delivery Device O2 Liters/Min FiO2 Sodium 140 Potassium 4.5 Chloride 109 H Carbon Dioxide 13 L Anion Gap 18 H BUN 20 Creatinine 1.75 H Estim Creat Clear Calc 62 Estimated GFR 43 L Glucose 154 H POC Capillary Glucose 148 H Hemoglobin A1c Lactic Acid 4.3 H* Calcium 9.4 Phosphorus Magnesium 1.4 L Total Bilirubin 0.8 AST 35 ALT 25 Alkaline Phosphatase 236 H NT-Pro-B Natriuret Pep Total Protein 9.0 H Albumin 4.6 Lipase 63 TSH (Reflex) 0.584 Urine Color Urine Appearance Urine pH Ur Specific [place] Urine Protein Urine Glucose (UA) Urine Ketones Ur Blood (Man) Urine Nitrate Urine Bilirubin Urine Urobilinogen Leukocyte Esterase Rfl Urine RBC Urine WBC Ur Squamous Epith Cells Urine Bacteria Urine Casts Nasal MRSA (PCR) Urine Opiates Screen Urine Methadone Screen Ur Barbiturates Screen Ur Phencyclidine Scrn Ur Amphetamine Screen U Benzodiazepines Scrn Urine Cocaine Screen U Cannabinoids Screen Ethyl Alcohol < 10 C. difficile (PCR) Influenza A (RT-PCR) Negative Influenza B (RT-PCR) Negative RSV (RT-PCR) Negative SARS-CoV-2 RNA (RT-PCR) Negative 03/27/25 03/27/25 03/27/25 21:14 21:59 22:27 WBC RBC Hgb Hct MCV MCH MCHC RDW Plt Count MPV Immature Gran % (Auto) Neut % (Auto) Lymph % (Auto) [place] % (Auto) Eos % (Auto) Baso % (Auto) Lymph # (Auto) [place] # (Auto) Eos # (Auto) Baso # (Auto) Abs Immat Gran (auto) Absolute Neuts (auto) Absolute Nucleated RBC Band Neutrophils % Nucleated RBC % Platelet Estimate % Immature Plt Fraction Hypochromasia Anisocytosis Schistocytes PT INR APTT Puncture Site ABG pH ABG pCO2 ABG pO2 ABG PO2/FiO2 Ratio ABG HCO3 ABG O2 Saturation ABG O2 Content ABG Base Excess A-a Gradient Oxyhemoglobin Carboxyhemoglobin Methemoglobin Reduced Hemoglobin Total Hemoglobin O2 Delivery Device O2 Liters/Min FiO2 Sodium Potassium Chloride Carbon Dioxide Anion Gap BUN Creatinine Estim Creat Clear Calc Estimated GFR Glucose POC Capillary Glucose Hemoglobin A1c Lactic Acid 2.1 H Calcium Phosphorus Magnesium Total Bilirubin AST ALT Alkaline Phosphatase NT-Pro-B Natriuret Pep Total Protein Albumin Lipase TSH (Reflex) Urine Color Yellow Urine Appearance Clear Urine pH 6.5 Ur Specific [place] 1.012 Urine Protein 3+ H Urine Glucose (UA) 2+ H Urine Ketones 1+ H Ur Blood (Man) 2+ H Urine Nitrate Negative Urine Bilirubin Negative Urine Urobilinogen 0.2 Leukocyte Esterase Rfl Negative Urine RBC 11-20 H Urine WBC 0-5 Ur Squamous Epith Cells None seen Urine Bacteria None seen Urine Casts 0-2 Nasal MRSA (PCR) Not detected Urine Opiates Screen Negative Urine Methadone Screen Negative Ur Barbiturates Screen Negative Ur Phencyclidine Scrn Negative Ur Amphetamine Screen Negative U Benzodiazepines Scrn Negative Urine Cocaine Screen Negative U Cannabinoids Screen Positive A Ethyl Alcohol C. difficile (PCR) Negative Influenza A (RT-PCR) Influenza B (RT-PCR) RSV (RT-PCR) SARS-CoV-2 RNA (RT-PCR) 03/27/25 03/27/25 03/28/25 23:29 23:29 00:03 WBC RBC Hgb Hct MCV MCH MCHC RDW Plt Count MPV Immature Gran % (Auto) Neut % (Auto) Lymph % (Auto) [place] % (Auto) Eos % (Auto) Baso % (Auto) Lymph # (Auto) [place] # (Auto) Eos # (Auto) Baso # (Auto) Abs Immat Gran (auto) Absolute Neuts (auto) Absolute Nucleated RBC Band Neutrophils % Nucleated RBC % Platelet Estimate % Immature Plt Fraction Hypochromasia Anisocytosis Schistocytes PT INR APTT Puncture Site Right radial ABG pH 7.406 ABG pCO2 26.3 L ABG pO2 31.1 L* ABG PO2/FiO2 Ratio 1.48 ABG HCO3 16.1 L ABG O2 Saturation 61.4 L* ABG O2 Content 9.4 L ABG Base Excess -7.2 A-a Gradient 87.1 Oxyhemoglobin 60.4 L* Carboxyhemoglobin 0.2 Methemoglobin 0.3 Reduced Hemoglobin 39.1 H Total Hemoglobin 11.1 L O2 Delivery Device Not Reportable O2 Liters/Min Not Reportable FiO2 21 Sodium 140 Potassium 3.9 Chloride 109 H Carbon Dioxide 15 L Anion Gap 16 H BUN 19 Creatinine 1.77 H Estim Creat Clear Calc 61 Estimated GFR 42 L Glucose 161 H POC Capillary Glucose Hemoglobin A1c 6.6 H Lactic Acid Calcium 8.3 L Phosphorus Magnesium Total Bilirubin AST ALT Alkaline Phosphatase NT-Pro-B Natriuret Pep 4620 H Cancelled Total Protein Albumin Lipase TSH (Reflex) Urine Color Urine Appearance Urine pH Ur Specific [place] Urine Protein Urine Glucose (UA) Urine Ketones Ur Blood (Man) Urine Nitrate Urine Bilirubin Urine Urobilinogen Leukocyte Esterase Rfl Urine RBC Urine WBC Ur Squamous Epith Cells Urine Bacteria Urine Casts Nasal MRSA (PCR) Urine Opiates Screen Urine Methadone Screen Ur Barbiturates Screen Ur Phencyclidine Scrn Ur Amphetamine Screen U Benzodiazepines Scrn Urine Cocaine Screen U Cannabinoids Screen Ethyl Alcohol C. difficile (PCR) Influenza A (RT-PCR) Influenza B (RT-PCR) RSV (RT-PCR) SARS-CoV-2 RNA (RT-PCR) 03/28/25 03/28/25 03/28/25 04:21 06:33 07:44 WBC 13.0 H RBC 3.13 L Hgb 8.5 L Hct 27.6 L MCV 88.2 MCH 27.2 MCHC 30.8 L RDW 15.2 H Plt Count 247 MPV 10.9 H Immature Gran % (Auto) 0.9 H Neut % (Auto) 91.6 H Lymph % (Auto) 3.7 L [place] % (Auto) 3.5 Eos % (Auto) 0.1 Baso % (Auto) 0.2 Lymph # (Auto) 0.48 L [place] # (Auto) 0.5 Eos # (Auto) 0.0 Baso # (Auto) 0.0 Abs Immat Gran (auto) 0.12 H Absolute Neuts (auto) 12.0 H Absolute Nucleated RBC 0.000 Band Neutrophils % Not Reportable Nucleated RBC % 0.0 Platelet Estimate Adequate % Immature Plt Fraction Hypochromasia Anisocytosis 1+ Schistocytes None seen PT INR APTT Puncture Site ABG pH ABG pCO2 ABG pO2 ABG PO2/FiO2 Ratio ABG HCO3 ABG O2 Saturation ABG O2 Content ABG Base Excess A-a Gradient Oxyhemoglobin Carboxyhemoglobin Methemoglobin Reduced Hemoglobin Total Hemoglobin O2 Delivery Device O2 Liters/Min FiO2 Sodium 139 Potassium 3.6 Chloride 111 H Carbon Dioxide 17 L Anion Gap 11 BUN 18 Creatinine 1.68 H 1.72 H Estim Creat Clear Calc 65 64 Estimated GFR 45 L 43 L Glucose 142 H POC Capillary Glucose 122 H Hemoglobin A1c Lactic Acid 0.7 Calcium 7.6 L Phosphorus 3.2 Magnesium 1.8 Total Bilirubin 0.4 AST 24 ALT 12 Alkaline Phosphatase 148 H NT-Pro-B Natriuret Pep Total Protein 7.0 Albumin 3.3 L Lipase TSH (Reflex) Urine Color Urine Appearance Urine pH Ur Specific [place] Urine Protein Urine Glucose (UA) Urine Ketones Ur Blood (Man) Urine Nitrate Urine Bilirubin Urine Urobilinogen Leukocyte Esterase Rfl Urine RBC Urine WBC Ur Squamous Epith Cells Urine Bacteria Urine Casts Nasal MRSA (PCR) Urine Opiates Screen Urine Methadone Screen Ur Barbiturates Screen Ur Phencyclidine Scrn Ur Amphetamine Screen U Benzodiazepines Scrn Urine Cocaine Screen U Cannabinoids Screen Ethyl Alcohol C. difficile (PCR) Influenza A (RT-PCR) Influenza B (RT-PCR) RSV (RT-PCR) SARS-CoV-2 RNA (RT-PCR) Quality VTE Prophylaxis VTE prophylaxis: pharmacologic ordered (Continue home Xarelto) Hospitalist MIPS Advance Care Plan I have confirmed that the patient's Advanced Care Plan is present, code status is documented, or surrogate decision maker is listed in patient medical record.: Yes Medication Reconciliation I have utilized all available resources to obtain, update and review the patients current medications (includes all prescriptions, OTC, herbals, cannabis, and nutritional supplements).: Yes
[2025-03-28] MEDS: LOPERAMIDE HCL 2 MG CAPSULE PO ×5 (11:14→23:05)
[2025-03-28 11:47] LABS: Glucose Point of Care 124 mg/dl (65-105)
[2025-03-28 13:07] LABS: MRSA (PCR) DETECTED (NOT DETECTE)
[2025-03-28 16:16] LABS: Glucose Point of Care 113 mg/dl (65-105)
[2025-03-28] MEDS: RIVAROXABAN 20 MG TABLET PO (17:02)
[2025-03-28 19:49] LABS: Glucose Point of Care 96 mg/dl (65-105)
[2025-03-28] MEDS: SERTRALINE HCL 50 MG TABLET 150 MG PO (20:14)
[2025-03-28] MEDS: oxyCODONE HCL (*CRX) 5 MG TAB IR PO (22:06)
[2025-03-28] MEDS: ZOLPIDEM TARTRATE (*CRX) 5 MG TABLET 10 MG PO (23:06)
[2025-03-29] VITALS (19 sets, daily range): BP systolic 138–186; BP diastolic 72–87; PULSE 64–109; RESP 16–24; TEMP 36.4–37.6; O2SAT 91–100
[2025-03-29] MEDS: SODIUM CHLORIDE 0.9% IV 1,000 ML 150 ML IV CONT ×4 (01:15→22:06)
[2025-03-29] MEDS: PIPERACILLN/TAZ 3.375GM/NS50ML 3.375 GM/50 ML BAG IVPB ×2 (04:05→10:07)
[2025-03-29 04:22] LABS: Hematocrit 27.5 % (42.0-52.0); Hemoglobin 8.6 g/dL (14.0-18.0); Mean Corpuscular HGB Conc 31.3 g/dl (32-36); Mean Corpuscular Hemoglobin 26.9 pg (26-34); Mean Corpuscular Volume 85.9 fl (80-100); Mean Platelet Volume 11.2 fl (7.4-10.4); Platelet Count Result 252 k/mm3 (150-375); Red Cell Distribution Width 15.1 % (11.5-14.5); White Blood Count 10.9 K/mm3 (4.5-10.0)
[2025-03-29 04:35] LABS: Alanine Aminotransferase 16 U/L (6-50); Albumin Level 3.4 g/dL (3.5-5.1); Alkaline Phosphatase 142 U/L (38-126); Anion Gap 10 mmol/L (4-12); Aspartate Amino Transferase 36 U/L (17-59); Bilirubin,Total 0.4 mg/dL (0.2-1.3); Blood Urea Nitrogen 14 mg/dL (9-20); Carbon Dioxide 16 mmol/L (22-30); Chloride 112 mmol/L (98-107); Estimated CRCL calculation 65 ml/min; Estimated Glomerular Filt Rate 45; Glucose 95 mg/dL (65-110); Potassium 3.2 mmol/L (3.4-5.0); Sodium 138 mmol/L (137-145)
[2025-03-29] MEDS: ONDANSETRON INJ 4 MG/2 ML VIAL IV PUSH (06:19)
[2025-03-29 08:14] LABS: Glucose Point of Care 100 mg/dl (65-105)
[2025-03-29] MEDS: PROCHLORPERAZINE EDISYLATE 10 MG/2 ML VIAL IV PUSH ×2 (08:25→14:49)
[2025-03-29] MEDS: ATORVASTATIN 40 MG TABLET 80 MG PO (09:25)
[2025-03-29] MEDS: PANTOPRAZOLE 40 MG TABLET PO (09:25)
[2025-03-29] MEDS: ASPIRIN 81 MG CHEWABLE TABLET PO (09:26)
[2025-03-29] MEDS: hydrALAZINE HCL 25 MG TABLET PO (09:26)
[2025-03-29] MEDS: FOLIC ACID 1 MG TABLET PO (09:26)
[2025-03-29] MEDS: amLODIPine BESYLATE 10 MG TABLET PO (09:26)
[2025-03-29] MEDS: DOXYCYCLINE HYCLATE 100 MG TABLET PO ×2 (10:07→21:08)
--- NOTE | 2025-03-29 10:27 | PM.IMPN ---
Progress Note: A&P Assessment and Plan (1) Severe sepsis: Code(s): A41.9 - Sepsis, unspecified organism; R65.20 - Severe sepsis without septic shock Status: Acute Assessment and Plan: Possibly due to colitis Started Zosyn (2) Colitis: Code(s): K52.9 - Noninfective gastroenteritis and colitis, unspecified Status: Acute Assessment and Plan: C diff negative (3) Cellulitis of second toe of left foot: Code(s): L03.032 - Cellulitis of left toe Status: Acute Assessment and Plan: Nasal MRSA positive Started on oral doxy (4) SARAH (acute kidney injury): Code(s): N17.9 - Acute kidney failure, unspecified Status: Acute Assessment and Plan: Possibly due to sepsis Avoid nephrotoxic drugs Trend BUN and creatinine Hold Losartan (5) Lactic acidosis: Code(s): E87.20 - Acidosis, unspecified Status: Acute (6) Opacities of both lungs present on chest x-ray: Code(s): R91.8 - Other nonspecific abnormal finding of lung field Status: Acute (7) Dehydration: Code(s): E86.0 - Dehydration Status: Acute Assessment and Plan: On IV fluid (8) Hypomagnesemia: Code(s): E83.42 - Hypomagnesemia Status: Acute Assessment and Plan: Repeat (9) Right upper quadrant pain: Code(s): R10.11 - Right upper quadrant pain Status: Acute Assessment and Plan: RUQ ultrasoundHepatomegaly. Gallbladder hydrops. No additional abnormalities detected within the gallbladder. Subjective Date/time seen: 03/29/25 10:27 Interval history: Patient reports of diarrhea resolved but still persists of nausea and vomiting. Advanced the diet to full liquid. Restarted carvedilol home dose. Consider Urology due to hydronephrosis Review of Systems Review of Systems: 12 systems were reviewed with pertinent positives and negatives per HPI. Except as documented in the HPI, all other systems were reviewed and are negative. Although the patient is not the most reliable historian. Exam Narrative: Weight 110.5 kg BMI 33 Const: Other: obese, mildly ill-appearing, appears older than stated age HENMT: Other: Mucous membranes are dry, markedly crowded posterior oropharynx edentulous in upper and lower jaw Eyes: Other: Positive conjunctival pallor, no scleral icterus, pupils are equal and reactive Neck: Other: Large neck circumference, trachea midline, no JVD Resp: Other: Clear to auscultation bilaterally, no increased work of breathing Cardio: Other: Regular rate, regular rhythm, 2+ bilateral radial pedal pulses, no murmur GI: Other: Soft, tenderness in the right upper quadrant, normoactive bowel sounds, obese Skin: Other: No jaundice, generalized pallor, normal temperature to touch Neuro: Other: Patient is alert oriented person, place, year and name of the current president he thought the month was August, has no localizing neurologic deficits, decreased sensation in bilateral feet consistent with history of neuropathy, no pronator drift Extrem: Other: No coat clubbing, cyanosis or edema, ulceration to the right 2nd toe with erythema to the top of the right 2nd toe and extending up the forefoot,, ulceration to the tip of the great toe on the right Psych: Other: Odd affect, cooperative, fair judgment Objective Data Vital Signs Vital Signs: Vital Signs - 24 hr 03/28/25 12:00 03/28/25 12:00 03/28/25 14:00 Temperature 98.1 F Pulse Rate 72 90 77 Respiratory Rate 16 Blood Pressure 126/45 L Pulse Oximetry 95 Oxygen Delivery 03/28/25 16:00 03/28/25 16:00 03/28/25 18:00 Temperature 97.7 F Pulse Rate 72 70 69 Respiratory Rate 16 Blood Pressure 146/65 H Pulse Oximetry 100 Oxygen Delivery 03/28/25 19:48 03/28/25 20:00 03/28/25 20:00 Temperature 101.9 F H Pulse Rate 72 82 Respiratory Rate 16 Blood Pressure 153/74 H Pulse Oximetry 97 Oxygen Delivery Room Air 03/28/25 20:13 03/28/25 21:13 03/28/25 22:00 Temperature 101.9 F H 100.0 F H Pulse Rate 70 Respiratory Rate Blood Pressure Pulse Oximetry Oxygen Delivery 03/28/25 23:44 03/29/25 00:00 03/29/25 00:00 Temperature 99.4 F Pulse Rate 65 64 Respiratory Rate 16 Blood Pressure 134/63 Pulse Oximetry 96 Oxygen Delivery Room Air 03/29/25 02:00 03/29/25 03:25 03/29/25 03:29 Temperature 98.2 F Pulse Rate 71 85 Respiratory Rate 16 Blood Pressure 186/80 H 177/79 H Pulse Oximetry 100 Oxygen Delivery 03/29/25 04:00 03/29/25 04:00 03/29/25 05:59 Temperature Pulse Rate 76 Respiratory Rate Blood Pressure 165/87 H Pulse Oximetry Oxygen Delivery Room Air 03/29/25 06:00 03/29/25 08:00 Temperature 98.4 F Pulse Rate 109 H 86 Respiratory Rate 18 Blood Pressure 184/86 H Pulse Oximetry 94 Oxygen Delivery Intake/Output Intake/Output: Intake & Output 03/26/25 03/27/25 03/28/25 03/29/25 23:59 23:59 23:59 23:59 Intake Total 2100 5130 1050 Output Total 950 750 Balance 2100 4180 300 Meds/Results Medications: Active Medications Generic Name Dose Route Start Last Admin Trade Name Freq PRN Reason Stop Dose Admin Acetaminophen 650 mg 03/27/25 23:39 03/28/25 20:13 Acetaminophen 325 Mg Tablet PO 650 mg Q4H PRN Administration Mild Pain (1-3) or Fever Amlodipine Besylate 10 mg 03/28/25 09:00 03/29/25 09:26 Amlodipine Besylate 10 Mg Tablet PO 10 mg DAILY REYNA Administration Aspirin 81 mg 03/28/25 08:00 03/29/25 09:26 Aspirin 81 Mg Chewable Tablet PO 81 mg DAILY@0800 REYNA Administration Atorvastatin Calcium 80 mg 03/28/25 09:00 03/29/25 09:25 Atorvastatin 40 Mg Tablet PO 80 mg DAILY REYNA Administration Buspirone HCl 15 mg 03/28/25 04:53 Buspirone Hcl 5 Mg Tablet PO BID PRN anxiety Dextrose 12.5 gm 03/28/25 05:17 Dextrose 50% 25 Gm/50 Ml Syringe IV PUSH PRN PRN Hypoglycemia Protocol Doxycycline Hyclate 100 mg 03/29/25 09:00 03/29/25 10:07 Doxycycline Hyclate 100 Mg Tablet PO 04/05/25 08:59 100 mg Q12HR REYNA Administration Folic Acid 1 mg 03/28/25 09:00 03/29/25 09:26 Folic Acid 1 Mg Tablet PO 1 mg DAILY REYNA Administration Glucagon 1 mg 03/28/25 05:17 Glucagon For Inj 1 Mg Vial IM PRN PRN Hypoglycemia Protocol Glucose 15 gm 03/28/25 05:17 Glucose Oral Gel 15 Gm Of Glucse In 37.5 Gm Tube PO PRN PRN Hypoglycemia Protocol Hydralazine HCl 25 mg 03/28/25 09:00 03/29/25 09:26 Hydralazine Hcl 25 Mg Tablet PO 25 mg DAILY REYNA Administration Piperacillin/Tazobactam/Dextrose 3.375 gm in 50 mls @ 100 mls/hr 03/28/25 04:00 03/29/25 10:07 Zosyn 3.375 Gm/Ns 50 Ml IVPB 100 mls/hr Q6H REYNA Administration Sodium Chloride 1,000 mls @ 150 mls/hr 03/27/25 23:40 03/29/25 08:20 Normal Saline Iv IV CONT 150 mls/hr .Q6H40M REYNA Administration Dextrose 1,000 mls @ 100 mls/hr 03/28/25 05:17 Dextrose 5% 1,000 Ml IVPB PRN PRN Hypoglycemia Protocol Potassium Chloride 40 meq/ 520 mls @ 130 mls/hr 03/29/25 09:57 Sodium Chloride IVPB 03/29/25 13:56 ONCE ONE Insulin Aspart 3 - 6 units 03/28/25 08:00 03/29/25 09:27 Insulin Aspart (*Bkc) 100 Units/Ml SUB-Q Not Given TIDWM [facility] Protocol Insulin Aspart 1 - 3 units 03/28/25 21:00 03/28/25 20:14 Insulin Aspart (*Bkc) 100 Units/Ml SUB-Q Not Given HS [facility] Protocol Loperamide HCl 2 mg 03/28/25 10:47 03/28/25 23:05 Loperamide Hcl 2 Mg Capsule PO 2 mg PRN PRN Administration Diarrhea Ondansetron HCl 4 mg 03/27/25 23:39 03/29/25 06:19 Ondansetron Inj 4 Mg/2 Ml Vial IV PUSH 4 mg Q4H PRN Administration Nausea Oxycodone HCl 5 mg 03/28/25 04:40 03/28/25 22:06 Oxycodone Hcl (*Crx) 5 Mg Tab Ir PO 5 mg Q6H PRN Administration pain 7-10 Pantoprazole Sodium 40 mg 03/28/25 09:00 03/29/25 09:25 Pantoprazole 40 Mg Tablet PO 40 mg Q12HR REYNA Administration Prochlorperazine Edisylate 10 mg 03/29/25 08:11 03/29/25 08:25 Prochlorperazine Edisylate 10 Mg/2 Ml Vial IV PUSH 10 mg Q6H PRN Administration Nausea And Vomiting Rivaroxaban 20 mg 03/28/25 17:00 03/28/25 17:02 Rivaroxaban 20 Mg Tablet PO 20 mg DAILY@1700 REYNA Administration Sertraline HCl 150 mg 03/28/25 21:00 03/28/25 20:14 Sertraline Hcl 50 Mg Tablet PO 150 mg HS REYNA Administration Zolpidem Tartrate 10 mg 03/28/25 22:45 03/28/25 23:06 Zolpidem Tartrate (*Crx) 5 Mg Tablet PO 10 mg QHS REYNA Administration Radiology Results: ITS Impressions Head CT 03/27/25 21:27 IMPRESSION: No acute intracranial process. Chest/Abdomen/Pelvis CT 03/27/25 21:34 IMPRESSION: Pulmonary opacities likely representing pulmonary edema. Infection, aspiration, or other pneumonitis should remain in the differential. 1.5 cm right thyroid nodule, recommend nonemergent, outpatient thyroid ultrasound for further characterization. Gallbladder hydrops as can be seen with fasting or obstruction. Correlate with biliary labs. No gallbladder inflammatory changes or stones. Dilated right renal pelvis with mild urothelial enhancement, may represent some degree of UPJ obstruction and/or pyelitis. Mild diffuse colonic wall thickening, as can be seen with colitis. Urinary bladder wall thickening may be secondary to incomplete distention or cystitis. Left femoral and inguinal lymphadenopathy. Foot X-Ray 03/28/25 00:28 IMPRESSION: Osteomyelitis involving the tip of the left second distal phalanx. Upper Quadrant Ultrasound 03/28/25 11:53 IMPRESSION: Hepatomegaly. Gallbladder hydrops. No additional abnormalities detected within the gallbladder. Labs Labs: Laboratory Results - last 24 hr 03/28/25 03/28/25 03/28/25 11:14 11:49 16:07 WBC RBC Hgb Hct MCV MCH MCHC RDW Plt Count MPV Sodium Potassium Chloride Carbon Dioxide Anion Gap BUN Creatinine Estim Creat Clear Calc Estimated GFR Glucose POC Capillary Glucose 124 H 113 H Calcium Total Bilirubin AST ALT Alkaline Phosphatase Total Protein Albumin Nasal MRSA (PCR) Detected A* 03/28/25 03/29/25 03/29/25 19:45 04:16 08:07 WBC 10.9 H RBC 3.20 L Hgb 8.6 L Hct 27.5 L MCV 85.9 MCH 26.9 MCHC 31.3 L RDW 15.1 H Plt Count 252 MPV 11.2 H Sodium 138 Potassium 3.2 L Chloride 112 H Carbon Dioxide 16 L Anion Gap 10 BUN 14 Creatinine 1.68 H Estim Creat Clear Calc 65 Estimated GFR 45 L Glucose 95 POC Capillary Glucose 96 100 Calcium 8.0 L Total Bilirubin 0.4 AST 36 ALT 16 Alkaline Phosphatase 142 H Total Protein 7.0 Albumin 3.4 L Nasal MRSA (PCR) Quality VTE Prophylaxis VTE prophylaxis: pharmacologic ordered (Continue home Xarelto) Hospitalist MIPS Advance Care Plan I have confirmed that the patient's Advanced Care Plan is present, code status is documented, or surrogate decision maker is listed in patient medical record.: Yes Medication Reconciliation I have utilized all available resources to obtain, update and review the patients current medications (includes all prescriptions, OTC, herbals, cannabis, and nutritional supplements).: Yes
[2025-03-29] MEDS: carvediloL 25 MG TABLET PO ×2 (10:56→21:06)
[2025-03-29] MEDS: POTASSIUM CHLORIDE INJ 40 MEQ in SODIUM CHLORIDE 0.9% IV 500 ML 130 MEQ IVPB (10:57)
[2025-03-29 12:01] LABS: Glucose Point of Care 119 mg/dl (65-105)
[2025-03-29 13:11] LABS: Magnesium 1.6 mg/dL (1.6-2.3); Phosphorus 2.5 mg/dL (2.5-4.5); Potassium 3.4 mmol/L (3.4-5.0)
[2025-03-29] MEDS: MORPHINE SULFATE (*CRX) 2 MG/ML INJ IV PUSH ×2 (15:34→21:03)
--- NOTE | 2025-03-29 16:20 | WPDURCON ---
Assessment and Plan Assessment and plan (1) SARAH (acute kidney injury): Code(s): N17.9 - Acute kidney failure, unspecified Status: Acute (2) Hematuria: Qualifiers: Hematuria type: other microscopic Qualified Code(s): R31.29 - Other microscopic hematuria Code(s): R31.9 - Hematuria, unspecified Status: Acute Plan 44y old male with multiple health concerns admitted with sepsis, osteoyelitis, and sarah. -CT shows 14 mm nonobstructing calcification in the right lower pole. Punctate nonobstructing left midpole calcifications. Dilated right renal pelvis, with mild wall hyperemia. No obstructing stone or mass detected. No left hydronephrosis. Moderate bilateral perinephric stranding. -cr 1.68, WBC 10.9 down from 15.1. -UA urine not significant for infection, but does have 11-20 rbc noted. -Patient can follow up as outpatient for cystoscopy. No urological surgical intervention planned at this time. Dr. Adame has reviewed the images from the CT. Urology Consult Note HPI Date Seen: 03/29/25 Requesting Physician: Sidra Gould DO Primary Care Provider: Masha Hayden Consult Narrative Narrative: Robert Dickson is a 44 year old male 44-year-old male with a complicated past medical history including essential hypertension, anxiety, chronic pain, type 2 diabetes mellitus, peripheral neuropathy, and mechanical mitral valve replacement in 2022 with subsequent dehiscence of the valve and replacement with tissue valve 2 weeks later who presented to the ER from home via EMS due to nausea vomiting and diarrhea for 1 day and shortness of breath for 2 hours. Urology consulted for abnormal ct results. Patient denies any urologic symptoms or cva tenderness. Patient reports he would prefer to address this as outpatient. Review of Systems Review of Systems: All systems reviewed & are unremarkable except as noted in HPI and below [facility] Past Medical History Medical History (Updated 03/29/25 @ 16:32 by Sheyla Edwards APRN) Hyperlipidemia Mitral regurgitation Diabetic neuropathy DM2 (diabetes mellitus, type 2) Neuropathy HTN (hypertension) with goal to be determined Kidney stones COPD (chronic obstructive pulmonary disease) Depression with anxiety History of diabetes mellitus History of COPD History of hypertension Surgical History Surgical History (Updated 03/28/25 @ 05:23 by Sidra Gould DO) Prosthetic mitral valve failure requiring replacement Patient had a metal mitral valve replacement place in 2022 and had 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 with secondary tissue valve replacement within 2 weeks of original procedure H/O tooth extraction History of lithotripsy History of cardiac catheterization 2013, no coronary artery disease with repeat heart catheterization 2022 with placement of 2 stents Family History Family History Mother Cerebrovascular accident Hypertension Depression Father Diabetes mellitus Heart disease Cancer before age 60 Acute myocardial infarction Grandparent Heart disease COPD (chronic obstructive pulmonary disease) Kidney disease Social History Social History (Updated 03/28/25 @ 05:15 by Sidra Gould DO) Social History: The patient is and lives with his He has 3 children. 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 He used to smoke 2-3 packs of cigarettes per day but quit smoking in 2022 when he had his mitral valve replaced. He denies any alcohol. He uses marijuana. Code status: Full code Surrogate decision maker: Malia () Smoking packs per day: 2 Smoking cigarettes per day: 40.0 Years smoked: 30 Smoking pack-years: 60.00 Smoking status: Former smoker Tobacco type: cigarettes Second hand tobacco smoke exposure: Yes Alcohol intake: never Substance use: current Substance use type: marijuana Last use: 1 month ago Do You Feel Safe in your Home?: Yes Lack of Transportation: No Lack of Food: Never True Current Housing: I Have Housing Concerned About Future Housing: YES Difficulty Paying Gas/Electric Bills: No Difficulty Paying for Meds: No Currently Unemployed: No Education: High School Diploma/GED Difficulty w/ Childcare or Family Care: No Gender identity (if verbalized by the patient): Male Spiritual care concerns: No Meds Home Medications and Allergies Home Medications ?Medication ?Instructions ?Recorded ?Confirmed ?Type gabapentin 300 mg capsule 400 mg PO QID PRN Muscle Pain 04/27/20 03/28/25 History atorvastatin 80 mg tablet 40 mg PO DAILY 03/23/23 03/28/25 History sertraline 100 mg tablet 150 mg PO HS 03/23/23 03/28/25 History buspirone 15 mg tablet 15 mg PO DAILY PRN anxiey 09/18/23 03/28/25 History cyclobenzaprine 10 mg tablet 10 mg PO DAILY PRN muscle cramps 09/18/23 03/28/25 History amlodipine 10 mg tablet 10 mg PO DAILY 03/28/25 03/28/25 History aspirin 81 mg chewable tablet 1 tablet PO DAILY 03/28/25 03/28/25 History carvedilol 25 mg tablet 25 mg PO Q12H 03/28/25 03/28/25 History ergocalciferol (vitamin D2) 1,250 1,250 mcg PO WEEKLY 03/28/25 03/28/25 History mcg (50,000 unit) capsule folic acid 1 mg tablet 1 mg PO DAILY 03/28/25 03/28/25 History hydralazine 25 mg tablet 25 mg PO DAILY 03/28/25 03/28/25 History hydroxyzine HCl 10 mg tablet 10 mg PO Q8H PRN anxiety 03/28/25 03/28/25 History losartan 25 mg tablet 25 mg PO DAILY 03/28/25 03/28/25 History losartan 50 mg tablet 50 mg PO DAILY 03/28/25 03/28/25 History methocarbamol 500 mg tablet 500 mg PO DAILY 03/28/25 03/28/25 History metoprolol succinate 25 mg 25 mg PO Q12H 03/28/25 03/28/25 History tablet,extended release 24 hr oxycodone 5 mg tablet 5 mg PO Q6H PRN pain 03/28/25 03/28/25 History pantoprazole 40 mg tablet,delayed 40 mg PO Q12H 03/28/25 03/28/25 History release rivaroxaban 20 mg tablet (Xarelto) 20 mg PO QPM 03/28/25 03/28/25 History zolpidem 10 mg tablet 10 mg PO QHS 03/28/25 03/28/25 History Allergies Allergy/AdvReac Type Severity Reaction Status Date / Time tramadol AdvReac Hallucinati Verified 03/28/25 00:15 ng Vital Signs Vital Signs - 24 hr 03/28/25 18:00 03/28/25 19:48 03/28/25 20:00 Temperature 101.9 F H Pulse Rate 69 72 Respiratory Rate 16 Blood Pressure 153/74 H Pulse Oximetry 97 Oxygen Delivery Room Air 03/28/25 20:00 03/28/25 20:13 03/28/25 21:13 Temperature 101.9 F H 100.0 F H Pulse Rate 82 Respiratory Rate Blood Pressure Pulse Oximetry Oxygen Delivery 03/28/25 22:00 03/28/25 23:44 03/29/25 00:00 Temperature 99.4 F Pulse Rate 70 65 Respiratory Rate 16 Blood Pressure 134/63 Pulse Oximetry 96 Oxygen Delivery Room Air 03/29/25 00:00 03/29/25 02:00 03/29/25 03:25 Temperature 98.2 F Pulse Rate 64 71 85 Respiratory Rate 16 Blood Pressure 186/80 H Pulse Oximetry 100 Oxygen Delivery 03/29/25 03:29 03/29/25 04:00 03/29/25 04:00 Temperature Pulse Rate 76 Respiratory Rate Blood Pressure 177/79 H Pulse Oximetry Oxygen Delivery Room Air 03/29/25 05:59 03/29/25 06:00 03/29/25 08:00 Temperature 98.4 F Pulse Rate 109 H 86 Respiratory Rate 18 Blood Pressure 165/87 H 184/86 H Pulse Oximetry 94 Oxygen Delivery 03/29/25 08:00 03/29/25 10:00 03/29/25 10:56 Temperature Pulse Rate 80 78 100 Respiratory Rate Blood Pressure Pulse Oximetry Oxygen Delivery 03/29/25 12:00 03/29/25 12:00 03/29/25 14:00 Temperature 98.9 F Pulse Rate 89 81 85 Respiratory Rate 18 Blood Pressure 155/85 H Pulse Oximetry 100 Oxygen Delivery Exam Narrative: Weight 110.5 kg BMI 33 Const: Other: obese, mildly ill-appearing, appears older than stated age Eyes: Other: Positive conjunctival pallor, no scleral icterus, pupils are equal and reactive Resp: Other: no increased work of breathing Skin: Other: No jaundice, generalized pallor, normal temperature to touch Neuro: Other: Patient is alert oriented person, place, year and name of the current president he thought the month was August, has no localizing neurologic deficits, decreased sensation in bilateral feet consistent with history of neuropathy, no pronator drift Psych: Other: Odd affect, cooperative, fair judgment Results Labs 03/29/25 04:16 03/29/25 12:50 Labs: Short CBC 03/29/25 Range/Units 04:16 WBC 10.9 H (4.5-10.0) K/mm3 Hgb 8.6 L (14.0-18.0) g/dL Hct 27.5 L (42.0-52.0) % Plt Count 252 (150-375) k/mm3 BMP 03/29/25 03/29/25 04:16 12:50 Sodium 138 Potassium 3.2 L 3.4 Chloride 112 H Carbon Dioxide 16 L BUN 14 Creatinine 1.68 H Glucose 95 Calcium 8.0 L Liver Function 03/29/25 Range/Units 04:16 Total Bilirubin 0.4 (0.2-1.3) mg/dL AST 36 (17-59) U/L ALT 16 (6-50) U/L Alkaline Phosphatase 142 H (38-126) U/L Albumin 3.4 L (3.5-5.1) g/dL
[2025-03-29] MEDS: RIVAROXABAN 20 MG TABLET PO (16:30)
[2025-03-29 16:48] LABS: Glucose Point of Care 131 mg/dl (65-105)
[2025-03-29] MEDS: LOPERAMIDE HCL 2 MG CAPSULE PO ×2 (17:39→21:07)
--- NOTE | 2025-03-29 18:00 | P.CONGI_ITS ---
Assessment and Plan Assessment and plan (1) Acute gastroenteritis: Code(s): K52.9 - Noninfective gastroenteritis and colitis, unspecified Status: Acute Assessment and Plan: The clinical picture, characterized by the acute onset of nausea, vomiting, diarrhea, and abdominal pain, strongly indicates acute infectious gastroenteritis, with a bacterial etiology being most probable. He is currently on appropriate antibiotic therapy, and we are awaiting stool culture results. Our recommendations include advancing his diet to low-fiber, maintaining doxycycline for the pneumonitis, and considering a change from Augmentin to levofloxacin to optimize coverage for potential GI pathogens GI Consult Note Consult date/time: 03/29/25 18:00 HPI: Mr. Robert Dickson, a 44-year-old male with a history of diabetes, hypertension, and mitral valve replacement, was admitted on March 27, 2025, with a four-day history of protracted nausea, vomiting, diffuse lower abdominal pain, and frequent diarrhea. On admission, he was critically ill, dehydrated, and disoriented. Initial management included intravenous fluids and antibiotics (Augmentin, doxycycline) for a suspected aspiration pneumonitis. Laboratory data from March 29, 2025, showed anemia (Hemoglobin 8.6 ) and a white blood cell count of 10.9 (trending down from 15.[address] scan confirmed diffuse colonic thickening consistent with colitis. Today, his condition has significantly improved: he is oriented, denies abdominal pain, and reports more formed stools after receiving loperamide yesterday. Despite overall improvement, he did experience nausea this afternoon, requiring intravenous Compazine. Review of Systems 2 Review of Systems: All systems reviewed & are unremarkable except as noted in HPI and below [facility] Past Medical History Medical History (Updated 03/29/25 @ 18:06 by Galdino Christy MD) Hyperlipidemia Mitral regurgitation Diabetic neuropathy DM2 (diabetes mellitus, type 2) Neuropathy HTN (hypertension) with goal to be determined Kidney stones COPD (chronic obstructive pulmonary disease) Depression with anxiety History of diabetes mellitus History of COPD History of hypertension Surgical History Surgical History (Updated 03/28/25 @ 05:23 by Sidra Gould DO) Prosthetic mitral valve failure requiring replacement Patient had a metal mitral valve replacement place in 2022 and had 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 with secondary tissue valve replacement within 2 weeks of original procedure H/O tooth extraction History of lithotripsy History of cardiac catheterization 2013, no coronary artery disease with repeat heart catheterization 2022 with placement of 2 stents Family History Family History Mother Cerebrovascular accident Hypertension Depression Father Diabetes mellitus Heart disease Cancer before age 60 Acute myocardial infarction Grandparent Heart disease COPD (chronic obstructive pulmonary disease) Kidney disease Social History Social History (Updated 03/28/25 @ 05:15 by Sidra Gould DO) Social History: The patient is and lives with his He has 3 children. 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 He used to smoke 2-3 packs of cigarettes per day but quit smoking in 2022 when he had his mitral valve replaced. He denies any alcohol. He uses marijuana. Code status: Full code Surrogate decision maker: Malia () Smoking packs per day: 2 Smoking cigarettes per day: 40.0 Years smoked: 30 Smoking pack-years: 60.00 Smoking status: Former smoker Tobacco type: cigarettes Second hand tobacco smoke exposure: Yes Alcohol intake: never Substance use: current Substance use type: marijuana Last use: 1 month ago Do You Feel Safe in your Home?: Yes Lack of Transportation: No Lack of Food: Never True Current Housing: I Have Housing Concerned About Future Housing: YES Difficulty Paying Gas/Electric Bills: No Difficulty Paying for Meds: No Currently Unemployed: No Education: High School Diploma/GED Difficulty w/ Childcare or Family Care: No Gender identity (if verbalized by the patient): Male Spiritual care concerns: No Meds Home Medications and Allergies Home Medications ?Medication ?Instructions ?Recorded ?Confirmed ?Type gabapentin 300 mg capsule 400 mg PO QID PRN Muscle Pain 04/27/20 03/28/25 History atorvastatin 80 mg tablet 40 mg PO DAILY 03/23/23 03/28/25 History sertraline 100 mg tablet 150 mg PO HS 03/23/23 03/28/25 History buspirone 15 mg tablet 15 mg PO DAILY PRN anxiey 09/18/23 03/28/25 History cyclobenzaprine 10 mg tablet 10 mg PO DAILY PRN muscle cramps 09/18/23 03/28/25 History amlodipine 10 mg tablet 10 mg PO DAILY 03/28/25 03/28/25 History aspirin 81 mg chewable tablet 1 tablet PO DAILY 03/28/25 03/28/25 History carvedilol 25 mg tablet 25 mg PO Q12H 03/28/25 03/28/25 History ergocalciferol (vitamin D2) 1,250 1,250 mcg PO WEEKLY 03/28/25 03/28/25 History mcg (50,000 unit) capsule folic acid 1 mg tablet 1 mg PO DAILY 03/28/25 03/28/25 History hydralazine 25 mg tablet 25 mg PO DAILY 03/28/25 03/28/25 History hydroxyzine HCl 10 mg tablet 10 mg PO Q8H PRN anxiety 03/28/25 03/28/25 History losartan 25 mg tablet 25 mg PO DAILY 03/28/25 03/28/25 History losartan 50 mg tablet 50 mg PO DAILY 03/28/25 03/28/25 History methocarbamol 500 mg tablet 500 mg PO DAILY 03/28/25 03/28/25 History metoprolol succinate 25 mg 25 mg PO Q12H 03/28/25 03/28/25 History tablet,extended release 24 hr oxycodone 5 mg tablet 5 mg PO Q6H PRN pain 03/28/25 03/28/25 History pantoprazole 40 mg tablet,delayed 40 mg PO Q12H 03/28/25 03/28/25 History release rivaroxaban 20 mg tablet (Xarelto) 20 mg PO QPM 03/28/25 03/28/25 History zolpidem 10 mg tablet 10 mg PO QHS 03/28/25 03/28/25 History Allergies Allergy/AdvReac Type Severity Reaction Status Date / Time tramadol AdvReac Hallucinati Verified 03/28/25 00:15 ng Vital Signs Vital Signs - 24 hr 03/28/25 19:48 03/28/25 20:00 03/28/25 20:00 Temperature 101.9 F H Pulse Rate 72 82 Respiratory Rate 16 Blood Pressure 153/74 H Pulse Oximetry 97 Oxygen Delivery Room Air 03/28/25 20:13 03/28/25 21:13 03/28/25 22:00 Temperature 101.9 F H 100.0 F H Pulse Rate 70 Respiratory Rate Blood Pressure Pulse Oximetry Oxygen Delivery 03/28/25 23:44 03/29/25 00:00 03/29/25 00:00 Temperature 99.4 F Pulse Rate 65 64 Respiratory Rate 16 Blood Pressure 134/63 Pulse Oximetry 96 Oxygen Delivery Room Air 03/29/25 02:00 03/29/25 03:25 03/29/25 03:29 Temperature 98.2 F Pulse Rate 71 85 Respiratory Rate 16 Blood Pressure 186/80 H 177/79 H Pulse Oximetry 100 Oxygen Delivery 03/29/25 04:00 03/29/25 04:00 03/29/25 05:59 Temperature Pulse Rate 76 Respiratory Rate Blood Pressure 165/87 H Pulse Oximetry Oxygen Delivery Room Air 03/29/25 06:00 03/29/25 08:00 03/29/25 08:00 Temperature 98.4 F Pulse Rate 109 H 86 80 Respiratory Rate 18 Blood Pressure 184/86 H Pulse Oximetry 94 Oxygen Delivery 03/29/25 10:00 03/29/25 10:56 03/29/25 12:00 Temperature 98.9 F Pulse Rate 78 100 89 Respiratory Rate 18 Blood Pressure 155/85 H Pulse Oximetry 100 Oxygen Delivery 03/29/25 12:00 03/29/25 14:00 03/29/25 16:00 Temperature 99.7 F H Pulse Rate 81 85 73 Respiratory Rate 24 H Blood Pressure 154/76 H Pulse Oximetry 91 Oxygen Delivery 03/29/25 16:00 Temperature Pulse Rate 72 Respiratory Rate Blood Pressure Pulse Oximetry Oxygen Delivery Exam 2 Narrative: Alert and oriented. Cooperative. Moist oral mucosa. Abdomen: Soft, nontender, increased bowel sounds, no rebound. Rest of the examination within normal limits. Results Labs 03/29/25 04:16 03/29/25 12:50 Labs: Short CBC 03/29/25 Range/Units 04:16 WBC 10.9 H (4.5-10.0) K/mm3 Hgb 8.6 L (14.0-18.0) g/dL Hct 27.5 L (42.0-52.0) % Plt Count 252 (150-375) k/mm3 BMP 03/29/25 03/29/25 04:16 12:50 Sodium 138 Potassium 3.2 L 3.4 Chloride 112 H Carbon Dioxide 16 L BUN 14 Creatinine 1.68 H Glucose 95 Calcium 8.0 L Liver Function 03/29/25 Range/Units 04:16 Total Bilirubin 0.4 (0.2-1.3) mg/dL AST 36 (17-59) U/L ALT 16 (6-50) U/L Alkaline Phosphatase 142 H (38-126) U/L Albumin 3.4 L (3.5-5.1) g/dL
[2025-03-29] MEDS: AMOXICILLIN/CLAVULANATE K 875-125 MG TAB 1 TABLET PO (18:11)
[2025-03-29 19:09] LABS: Iron 25 ug/dL (49-181)
[2025-03-29 19:16] LABS: Percent Iron Saturation 13 % (20-50)
[2025-03-29 19:56] LABS: Glucose Point of Care 125 mg/dl (65-105)
[2025-03-29] MEDS: ZOLPIDEM TARTRATE (*CRX) 5 MG TABLET 10 MG PO (21:08)
[2025-03-29] MEDS: SERTRALINE HCL 50 MG TABLET 150 MG PO (21:08)
[2025-03-30] VITALS (10 sets, daily range): BP systolic 120–147; BP diastolic 66–78; PULSE 56–84; RESP 18; TEMP 36.6–36.8; O2SAT 96–100
[2025-03-30] MEDS: MORPHINE SULFATE (*CRX) 2 MG/ML INJ IV PUSH (03:26)
[2025-03-30] MEDS: SODIUM CHLORIDE 0.9% IV 1,000 ML 150 ML IV CONT (04:47)
[2025-03-30 04:55] LABS: Hematocrit 25.6 % (42.0-52.0); Mean Corpuscular HGB Conc 31.3 g/dl (32-36); Mean Corpuscular Hemoglobin 26.6 pg (26-34); Mean Platelet Volume 11.4 fl (7.4-10.4); Platelet Count Result 229 k/mm3 (150-375); Red Blood Count 3.01 M/mm3 (4.6-6.20); White Blood Count 8.7 K/mm3 (4.5-10.0)
[2025-03-30 05:05] LABS: Alanine Aminotransferase 15 U/L (6-50); Albumin Level 3.2 g/dL (3.5-5.1); Alkaline Phosphatase 121 U/L (38-126); Anion Gap 9 mmol/L (4-12); Aspartate Amino Transferase 31 U/L (17-59); Bilirubin,Total 0.5 mg/dL (0.2-1.3); Blood Urea Nitrogen 12 mg/dL (9-20); Calcium 7.6 mg/dL (8.4-10.2); Carbon Dioxide 17 mmol/L (22-30); Chloride 110 mmol/L (98-107); Estimated CRCL calculation 75 ml/min; Estimated Glomerular Filt Rate 52; Glucose 139 mg/dL (65-110); Potassium 3.1 mmol/L (3.4-5.0); Sodium 136 mmol/L (137-145)
[2025-03-30] MEDS: MAGNESIUM SULF 2 GM/WATER 50ML 2 GM/50 ML BAG IVPB (06:00)
[2025-03-30] MEDS: POTASSIUM CHLORIDE INJ 40 MEQ in SODIUM CHLORIDE 0.9% IV 500 ML 130 MEQ IVPB ×2 (06:01→11:22)
[2025-03-30] MEDS: oxyCODONE HCL (*CRX) 5 MG TAB IR PO ×2 (06:08→12:32)
--- NOTE | 2025-03-30 07:25 | WPDGIPROGNO ---
Progress Note: A&P Assessment and Plan (1) Acute gastroenteritis: Code(s): K52.9 - Noninfective gastroenteritis and colitis, unspecified Status: Acute Assessment and Plan: The patient has resolving acute gastroenteritis. Diarrhea induced by antibiotics he is taking for osteomyelitis might be a significant contributory Factor. He expresses his desire to go home and follow-up with [facility] where he has all his medical records including his heart surgery. Since he never had a colonoscopy and he is having constant diarrhea he will ask his primary care physician will investigated. We will be glad to take care of him as an outpatient if he wants to. Subjective Date/time seen: 03/30/25 07:25 Interval history: The patient is feeling better, required only 1 tablet of Imodium last night. His stools are becoming more formed. No further nausea or abdominal pain. Objective Data Vital Signs Vital Signs: Vital Signs - 24 hr 03/29/25 08:00 03/29/25 08:00 03/29/25 10:00 Temperature 98.4 F Pulse Rate 86 80 78 Respiratory Rate 18 Blood Pressure 184/86 H Pulse Oximetry 94 Oxygen Delivery 03/29/25 10:56 03/29/25 12:00 03/29/25 12:00 Temperature 98.9 F Pulse Rate 100 89 81 Respiratory Rate 18 Blood Pressure 155/85 H Pulse Oximetry 100 Oxygen Delivery 03/29/25 14:00 03/29/25 16:00 03/29/25 16:00 Temperature 99.7 F H Pulse Rate 85 73 72 Respiratory Rate 24 H Blood Pressure 154/76 H Pulse Oximetry 91 Oxygen Delivery 03/29/25 18:00 03/29/25 19:52 03/29/25 20:00 Temperature 97.7 F Pulse Rate 74 94 Respiratory Rate 16 Blood Pressure 144/76 H Pulse Oximetry 98 Oxygen Delivery Room Air 03/29/25 20:00 03/29/25 21:06 03/29/25 22:00 Temperature Pulse Rate 80 76 70 Respiratory Rate Blood Pressure Pulse Oximetry Oxygen Delivery 03/29/25 23:43 03/30/25 00:00 03/30/25 00:00 Temperature 97.6 F Pulse Rate 76 70 Respiratory Rate 16 Blood Pressure 138/72 Pulse Oximetry 96 Oxygen Delivery Room Air 03/30/25 02:00 03/30/25 03:28 05/22/25 03:50 Temperature 98.3 F Pulse Rate 68 69 Respiratory Rate 18 Blood Pressure 147/78 H Pulse Oximetry 97 Oxygen Delivery Room Air 03/30/25 04:00 03/30/25 06:00 Temperature Pulse Rate 69 68 Respiratory Rate Blood Pressure Pulse Oximetry Oxygen Delivery Intake/Output Intake/Output: Intake & Output 03/27/25 03/28/25 03/29/25 03/30/25 23:59 23:59 23:59 23:59 Intake Total 2100 5130 4342.5 2700 Output Total 950 3000 550 Balance 2100 4180 1342.5 2150 Meds/Results Medications: Active Medications Generic Name Dose Route Start Last Admin Trade Name Freq PRN Reason Stop Dose Admin Acetaminophen 650 mg 03/27/25 23:39 03/28/25 20:13 Acetaminophen 325 Mg Tablet PO 650 mg Q4H PRN Administration Mild Pain (1-3) or Fever Amlodipine Besylate 10 mg 03/28/25 09:00 03/29/25 09:26 Amlodipine Besylate 10 Mg Tablet PO 10 mg DAILY REYNA Administration Amoxicillin/Clavulanate Potassium 1 tablet 03/29/25 19:00 03/29/25 18:11 Amoxicillin/Clavulanate K 875-125 Mg Tab PO 04/03/25 21:01 1 tablet Q12HR REYNA Administration Aspirin 81 mg 03/28/25 08:00 03/29/25 09:26 Aspirin 81 Mg Chewable Tablet PO 81 mg DAILY@0800 REYNA Administration Atorvastatin Calcium 80 mg 03/28/25 09:00 03/29/25 09:25 Atorvastatin 40 Mg Tablet PO 80 mg DAILY REYNA Administration Buspirone HCl 15 mg 03/28/25 04:53 Buspirone Hcl 5 Mg Tablet PO BID PRN anxiety Carvedilol 25 mg 03/29/25 10:30 03/29/25 21:06 Carvedilol 25 Mg Tablet PO 25 mg Q12HR REYNA Administration Dextrose 12.5 gm 03/28/25 05:17 Dextrose 50% 25 Gm/50 Ml Syringe IV PUSH PRN PRN Hypoglycemia Protocol Doxycycline Hyclate 100 mg 03/29/25 09:00 03/29/25 21:08 Doxycycline Hyclate 100 Mg Tablet PO 04/05/25 08:59 100 mg Q12HR REYNA Administration Folic Acid 1 mg 03/28/25 09:00 03/29/25 09:26 Folic Acid 1 Mg Tablet PO 1 mg DAILY REYNA Administration Glucagon 1 mg 03/28/25 05:17 Glucagon For Inj 1 Mg Vial IM PRN PRN Hypoglycemia Protocol Glucose 15 gm 03/28/25 05:17 Glucose Oral Gel 15 Gm Of Glucse In 37.5 Gm Tube PO PRN PRN Hypoglycemia Protocol Hydralazine HCl 25 mg 03/28/25 09:00 03/29/25 09:26 Hydralazine Hcl 25 Mg Tablet PO 25 mg DAILY REYNA Administration Sodium Chloride 1,000 mls @ 150 mls/hr 03/27/25 23:40 03/30/25 04:47 Normal Saline Iv IV CONT 150 mls/hr .Q6H40M REYNA Administration Dextrose 1,000 mls @ 100 mls/hr 03/28/25 05:17 Dextrose 5% 1,000 Ml IVPB PRN PRN Hypoglycemia Protocol Potassium Chloride 40 meq/ 520 mls @ 130 mls/hr 03/30/25 05:50 03/30/25 06:01 Sodium Chloride IVPB 03/30/25 09:49 130 mls/hr ONCE ONE Administration Potassium Chloride 40 meq/ 520 mls @ 130 mls/hr 03/30/25 10:00 Sodium Chloride IVPB 03/30/25 13:59 ONCE ONE Magnesium Sulfate 2 gm in 50 mls @ 25 mls/hr 03/30/25 05:53 03/30/25 06:00 Magnesium Sulf 2 Gm/Water 50ml IVPB 03/30/25 07:52 25 mls/hr ONCE ONE Administration Insulin Aspart 3 - 6 units 03/28/25 08:00 03/29/25 16:51 Insulin Aspart (*Bkc) 100 Units/Ml SUB-Q Not Given TID[facility] Protocol Insulin Aspart 1 - 3 units 03/28/25 21:00 03/29/25 22:32 Insulin Aspart (*Bkc) 100 Units/Ml SUB-Q Not Given HS [facility] Protocol Loperamide HCl 2 mg 03/28/25 10:47 03/29/25 21:07 Loperamide Hcl 2 Mg Capsule PO 2 mg PRN PRN Administration Diarrhea Morphine Sulfate 2 mg 03/29/25 15:06 03/30/25 03:26 Morphine Sulfate (*Crx) 2 Mg/Ml Inj IV PUSH 2 mg Q4H PRN Administration Pain Rated 7-10 Ondansetron HCl 4 mg 03/27/25 23:39 03/29/25 06:19 Ondansetron Inj 4 Mg/2 Ml Vial IV PUSH 4 mg Q4H PRN Administration Nausea Oxycodone HCl 5 mg 03/28/25 04:40 03/30/25 06:08 Oxycodone Hcl (*Crx) 5 Mg Tab Ir PO 5 mg Q6H PRN Administration pain 7-10 Prochlorperazine Edisylate 10 mg 03/29/25 08:11 03/29/25 14:49 Prochlorperazine Edisylate 10 Mg/2 Ml Vial IV PUSH 10 mg Q6H PRN Administration Nausea And Vomiting Rivaroxaban 20 mg 03/28/25 17:00 03/29/25 16:30 Rivaroxaban 20 Mg Tablet PO 20 mg DAILY@1700 ERYNA Administration Sertraline HCl 150 mg 03/28/25 21:00 03/29/25 21:08 Sertraline Hcl 50 Mg Tablet PO 150 mg HS REYNA Administration Zolpidem Tartrate 10 mg 03/28/25 22:45 03/29/25 21:08 Zolpidem Tartrate (*Crx) 5 Mg Tablet PO 10 mg QHS REYNA Administration Radiology Results: ITS Impressions Head CT 03/27/25 21:27 IMPRESSION: No acute intracranial process. Chest/Abdomen/Pelvis CT 03/27/25 21:34 IMPRESSION: Pulmonary opacities likely representing pulmonary edema. Infection, aspiration, or other pneumonitis should remain in the differential. 1.5 cm right thyroid nodule, recommend nonemergent, outpatient thyroid ultrasound for further characterization. Gallbladder hydrops as can be seen with fasting or obstruction. Correlate with biliary labs. No gallbladder inflammatory changes or stones. Dilated right renal pelvis with mild urothelial enhancement, may represent some degree of UPJ obstruction and/or pyelitis. Mild diffuse colonic wall thickening, as can be seen with colitis. Urinary bladder wall thickening may be secondary to incomplete distention or cystitis. Left femoral and inguinal lymphadenopathy. Foot X-Ray 03/28/25 00:28 IMPRESSION: Osteomyelitis involving the tip of the left second distal phalanx. Upper Quadrant Ultrasound 03/28/25 11:53 IMPRESSION: Hepatomegaly. Gallbladder hydrops. No additional abnormalities detected within the gallbladder. Labs Labs: Laboratory Results - last 24 hr 03/29/25 03/29/25 03/29/25 08:07 11:56 12:50 WBC RBC Hgb Hct MCV MCH MCHC RDW Plt Count MPV Sodium Potassium 3.4 Chloride Carbon Dioxide Anion Gap BUN Creatinine Estim Creat Clear Calc Estimated GFR Glucose POC Capillary Glucose 100 119 H Calcium Phosphorus 2.5 Magnesium 1.6 Iron TIBC % Saturation Total Bilirubin AST ALT Alkaline Phosphatase Total Protein Albumin 03/29/25 03/29/25 03/29/25 16:44 18:17 19:51 WBC RBC Hgb Hct MCV MCH MCHC RDW Plt Count MPV Sodium Potassium Chloride Carbon Dioxide Anion Gap BUN Creatinine Estim Creat Clear Calc Estimated GFR Glucose POC Capillary Glucose 131 H 125 H Calcium Phosphorus Magnesium Iron 25 L TIBC 189 L % Saturation 13 L Total Bilirubin AST ALT Alkaline Phosphatase Total Protein Albumin 03/30/25 04:10 WBC 8.7 RBC 3.01 L Hgb 8.0 L Hct 25.6 L MCV 85.0 MCH 26.6 MCHC 31.3 L RDW 15.0 H Plt Count 229 MPV 11.4 H Sodium 136 L Potassium 3.1 L Chloride 110 H Carbon Dioxide 17 L Anion Gap 9 BUN 12 Creatinine 1.47 H Estim Creat Clear Calc 75 Estimated GFR 52 L Glucose 139 H POC Capillary Glucose Calcium 7.6 L Phosphorus Magnesium Iron TIBC % Saturation Total Bilirubin 0.5 AST 31 ALT 15 Alkaline Phosphatase 121 Total Protein 7.0 Albumin 3.2 L
[2025-03-30 08:23] LABS: Glucose Point of Care 124 mg/dl (65-105)
[2025-03-30] MEDS: ASPIRIN 81 MG CHEWABLE TABLET PO (08:58)
[2025-03-30] MEDS: ATORVASTATIN 40 MG TABLET 80 MG PO (09:45)
[2025-03-30] MEDS: amLODIPine BESYLATE 10 MG TABLET PO (09:45)
[2025-03-30] MEDS: hydrALAZINE HCL 25 MG TABLET PO (09:45)
[2025-03-30] MEDS: POTASSIUM CHLORIDE 20 MEQ ER TABLET 40 MEQ PO (09:46)
[2025-03-30] MEDS: carvediloL 25 MG TABLET PO (09:46)
[2025-03-30] MEDS: FOLIC ACID 1 MG TABLET PO (09:46)
[2025-03-30] MEDS: DOXYCYCLINE HYCLATE 100 MG TABLET PO (09:46)
[2025-03-30] MEDS: AMOXICILLIN/CLAVULANATE K 875-125 MG TAB 1 TABLET PO (09:46)
[2025-03-30 10:04] LABS: Creatine Kinase 212 U/L (55-170)
[2025-03-30 12:28] LABS: Glucose Point of Care 111 mg/dl (65-105)
[2025-03-30 15:05] LABS: Potassium 3.8 mmol/L (3.4-5.0)
--- NOTE | 2025-03-30 15:40 | PM.DS ---
DS: Admitting Diagnosis Discharge Date 03/30/2025 Admitting Diagnosis Nausea vomiting and diarrhea DS: Discharge Diagnosis Discharge Diagnosis (1) Severe sepsis: Code(s): A41.9 - Sepsis, unspecified organism; R65.20 - Severe sepsis without septic shock Status: Acute Assessment and Plan: Possibly due to colitis Status post Zosyn Started on Augmentin (2) Colitis: Code(s): K52.9 - Noninfective gastroenteritis and colitis, unspecified Status: Acute Assessment and Plan: C diff negative (3) Cellulitis of second toe of left foot: Code(s): L03.032 - Cellulitis of left toe Status: Acute Assessment and Plan: Nasal MRSA positive Started on oral doxy (4) SARAH (acute kidney injury): Code(s): N17.9 - Acute kidney failure, unspecified Status: Acute Assessment and Plan: Possibly due to sepsis Avoid nephrotoxic drugs Trend BUN and creatinine Hold Losartan (5) Lactic acidosis: Code(s): E87.20 - Acidosis, unspecified Status: Acute (6) Opacities of both lungs present on chest x-ray: Code(s): R91.8 - Other nonspecific abnormal finding of lung field Status: Acute (7) Dehydration: Code(s): E86.0 - Dehydration Status: Acute Assessment and Plan: On IV fluid (8) Hypomagnesemia: Code(s): E83.42 - Hypomagnesemia Status: Acute Assessment and Plan: Repeat (9) Right upper quadrant pain: Code(s): R10.11 - Right upper quadrant pain Status: Acute Assessment and Plan: RUQ ultrasoundHepatomegaly. Gallbladder hydrops. No additional abnormalities detected within the gallbladder. DS: Summary Hospital Course Hospital Course: 44-year-old male with a complicated past medical history including essential hypertension, anxiety, chronic pain, type 2 diabetes mellitus, peripheral neuropathy, and mechanical mitral valve replacement in 2022 with subsequent dehiscence of the valve and replacement with tissue valve 2 weeks later who presented to the ER from home via EMS due to nausea vomiting and diarrhea for 1 day and shortness of breath for 2 hours. The patient reports to me that he been having nausea vomiting for the last day or so. He then became more short of breath. His aunt provided the majority of the history while the patient was in the ER because he was acutely encephalopathic at the time. At the time of my evaluation the patient was alert oriented to person place and year but was confused as to the month. He thought the month was August. Despite being oriented for the most part patient still is a poor historian. Thus majority of the HPI was obtained from review of past medical records and ER report. Patient had evidently been having intermittent nausea vomiting for the last few weeks. 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 So they thought the patient was having intermittent nausea vomiting due to stress. The aunts all the patient over the past 2 days any seemed to be acting at his baseline. But 2 hours prior to calling EMS the patient began having profuse nausea vomiting and diarrhea. He had numerous episodes of vomiting and diarrhea. He was evidently also complaining of diffuse abdominal pain on arrival to the ER. At the time my evaluation he only reports some mild discomfort in his right upper quadrant. He was noted to be febrile with a T-max of 103? in the ER. His labs demonstrated leukocytosis and acute kidney injury as well as metabolic acidosis. Imaging demonstrated possible colitis and lung findings suspicious for possible aspiration pneumonitis. Patient himself denies any dysuria or hematuria. His UA was not suggestive of infection but CT suggested possible pyelitis verses some degree of UPJ obstruction and bladder was thickened secondary to incomplete distention versus cystitis. The patient also had dilated gallbladder due to fasting or obstruction. Patient did have some right upper quadrant tenderness to palpation. He had a wound to noted to the tip of his 2nd toe on the left foot and some associated left inguinal lymphadenopathy with some erythema to the top of the left foot. He does have history of diabetic foot wounds at neuropathy. He also had a wound noted to the tip of the left great toe but no associated erythema of that foot. He is unable to tell me if his foot is more erythematous than at baseline. He reports that he feels significantly better at the time. In regards to left foot osteomyelitis the patient is discharged with doxycycline for 6 weeks and advised to follow-up with the food quality technician, Infectious Disease as an outpatient In regards to colitis patient was initially started on Zosyn and later transformed to amoxicillin/cla. Patient C diff was negative. His nausea and vomiting improved. Patient denies any episodes of diarrhea. His kidney functions are improving. In regards to Dilated right renal pelvis with mild urothelial enhancement, may represent some degree of UPJ obstruction and/or pyelitis, Urology was consulted and advised to follow-up as an outpatient. Renal ultrasound shows normal kidneys without hydronephrosis. CPK 212. Advised to hydrate well. In regards to the left foot shows osteomyelitis involving the tip of the left 2nd distal phalanx. Patient reports he already has an appointment with food quality technician in regards to his left foot. 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 He reported he had valve replacement with mechanical which got later infected and replaced with bovine valve. Patient reports he has all his doctor at [facility] and wants to follow-up as an outpatient with them. In regards to 1.5 cm right thyroid nodule, recommend nonemergent, outpatient thyroid ultrasound for further characterization. Recommend to closely follow-up with downstairs maid as outpatient. On the day of discharge, the patient was seen and examined. Vital signs were stable. Physical exam were stable and labs were reviewed at length. Discharge instructions, medications, and follow-up appointments were discussed with the patient at length and all day questions were answered. ER warnings were given. Status at Discharge Cognitive/behavioral status at discharge: Stable Time Spent with Patient Time attestation: Total time spent providing and/or coordinating discharge services: 45 minutes Exam Narrative: Weight 110.5 kg BMI 33 Const: Other: obese, mildly ill-appearing, appears older than stated age HENMT: Other: Mucous membranes are dry, markedly crowded posterior oropharynx edentulous in upper and lower jaw Eyes: Other: Positive conjunctival pallor, no scleral icterus, pupils are equal and reactive Neck: Other: Large neck circumference, trachea midline, no JVD Resp: Other: Clear to auscultation bilaterally, no increased work of breathing Cardio: Other: Regular rate, regular rhythm, 2+ bilateral radial pedal pulses, no murmur GI: Other: Soft, tenderness in the right upper quadrant, normoactive bowel sounds, obese Skin: Other: No jaundice, generalized pallor, normal temperature to touch Neuro: Other: Patient is alert oriented person, place, year and name of the current president he thought the month was August, has no localizing neurologic deficits, decreased sensation in bilateral feet consistent with history of neuropathy, no pronator drift Extrem: Other: No coat clubbing, cyanosis or edema, ulceration to the right 2nd toe with erythema to the top of the right 2nd toe and extending up the forefoot,, ulceration to the tip of the great toe on the right Psych: Other: Odd affect, cooperative, fair judgment DS: Data Data Completed and Pending Labs on day of discharge: Labs from last 24 hours 03/30/25 03/30/25 03/30/25 14:50 12:11 07:38 WBC RBC Hgb Hct MCV MCH MCHC RDW Plt Count MPV Sodium Potassium 3.8 Chloride Carbon Dioxide Anion Gap BUN Creatinine Estim Creat Clear Calc Estimated GFR Glucose POC Capillary Glucose 111 H 124 H Calcium Iron TIBC % Saturation Total Bilirubin AST ALT Alkaline Phosphatase Total Creatine Kinase Total Protein Albumin 03/30/25 03/29/25 03/29/25 04:10 19:51 18:17 WBC 8.7 RBC 3.01 L Hgb 8.0 L Hct 25.6 L MCV 85.0 MCH 26.6 MCHC 31.3 L RDW 15.0 H Plt Count 229 MPV 11.4 H Sodium 136 L Potassium 3.1 L Chloride 110 H Carbon Dioxide 17 L Anion Gap 9 BUN 12 Creatinine 1.47 H Estim Creat Clear Calc 75 Estimated GFR 52 L Glucose 139 H POC Capillary Glucose 125 H Calcium 7.6 L Iron 25 L TIBC 189 L % Saturation 13 L Total Bilirubin 0.5 AST 31 ALT 15 Alkaline Phosphatase 121 Total Creatine Kinase 212 H Total Protein 7.0 Albumin 3.2 L 03/29/25 16:44 WBC RBC Hgb Hct MCV MCH MCHC RDW Plt Count MPV Sodium Potassium Chloride Carbon Dioxide Anion Gap BUN Creatinine Estim Creat Clear Calc Estimated GFR Glucose POC Capillary Glucose 131 H Calcium Iron TIBC % Saturation Total Bilirubin AST ALT Alkaline Phosphatase Total Creatine Kinase Total Protein Albumin Preliminary micro results at discharge 03/27/25 20:56 Blood Culture - Preliminary Blood 03/27/25 20:56 Blood Culture - Preliminary Blood Discharge Plan Discharge Attending physician on discharge: Pierre Mack Consulting providers: Rufina Adame Discharging Clinician: Pierre Mack Anticipated Discharge Date/Time: 03/30/25 15:55 Patient Disposition: Home Activity: as tolerated Diet: heart healthy Discharge Instructions: Patient needs to follow-up with the food quality technician and Infectious Disease in regards to left foot osteomyelitis. Patient is started with doxycycline 100 mg p.o. b.i.d. until 05/09/2025. The course of antibiotic can be modified/discontinued according to infectious disease or food quality technician opinion. In regards to 1.5 cm right thyroid nodule, recommend nonemergent, outpatient thyroid ultrasound for further characterization. Recommend to closely follow-up with downstairs maid as outpatient. In regards to Dilated right renal pelvis with mild urothelial enhancement, may represent some degree of UPJ obstruction and/or pyelitis. Patient needs to follow-up with urologist as an outpatient Patient needs to follow-up BUN and creatinine as an outpatient . In regard to acute kidney failure it is improving and hydrate well. Holding losartan please discuss with your PCP if needs to be continued Patient needs to follow with urologist, industrial economist, downstairs maid, Infectious Disease, food quality technician, physical plant employee, and PCP Check blood pressure 1 to 2 times a day. Record and bring into your doctor for review. Call your doctor if your blood pressure is greater than 180/110 or less than 90/45. Walk with cane or other assist device. Take precautions to avoid falls. Rise slowly from a lying or sitting position. Pause before standing or walking. Contact your doctor or call 911 and come to the Emergency Room if you have any type of trauma, lightheadedness with standing or other worrisome symptoms. Avoid NSAIDs (ibuprofen, naproxen, Aleve). Tylenol is safe to take. Follow-up with your primary care provider in 1-2 weeks. Please call for appointment. Follow-up with Cardiology in 2-4 weeks. Please call for an appointment. Thank you for using [facility] for your health care needs. Patient Instructions: Antibiotic Form, Blood Thinners (DC), Blood Thinners (GEN) Patient Language: Romanian Stand Alone Forms: General Discharge Information Follow-up/Referrals: Masha Hayden [Other] Discharge Medications: New amoxicillin-pot clavulanate 875-125 mg tablet 1 tablet PO Q12H Qty: 6 0RF Rx Instructions: Please complete the course in 3 days doxycycline hyclate 100 mg capsule 100 mg PO DAILY Qty: 84 0RF Rx Instructions: Please complete the course on 05/09/2025. Continued carvedilol 25 mg tablet 25 mg PO Q12H hydralazine 25 mg tablet 25 mg PO DAILY methocarbamol 500 mg tablet 500 mg PO DAILY oxycodone 5 mg tablet 5 mg PO Q6H PRN (Reason: pain) pantoprazole 40 mg tablet,delayed release (DR/EC) 40 mg PO Q12H Xarelto 20 mg tablet 20 mg PO QPM zolpidem 10 mg tablet 10 mg PO QHS folic acid 1 mg tablet 1 mg PO DAILY ergocalciferol (vitamin D2) 1,250 mcg (50,000 unit) capsule 1,250 mcg PO WEEKLY aspirin 81 mg tablet,chewable 1 tablet PO DAILY amlodipine 10 mg tablet 10 mg PO DAILY hydroxyzine HCl 10 mg tablet 10 mg PO Q8H PRN (Reason: anxiety) gabapentin 300 mg capsule 400 mg PO QID PRN (Reason: Muscle Pain) atorvastatin 80 mg tablet 40 mg PO DAILY sertraline 100 mg tablet 150 mg PO HS cyclobenzaprine 10 mg tablet 10 mg PO DAILY PRN (Reason: muscle cramps) buspirone 15 mg tablet 15 mg PO DAILY PRN (Reason: anxiey) Held losartan 25 mg tablet 25 mg PO DAILY Hold Instructions: Resume on 05/04/25. Please discuss with your PCP before continuing losartan 50 mg tablet 50 mg PO DAILY Hold Instructions: Resume on 05/04/25. Please continue the PCP before continuing Discontinued metoprolol succinate 25 mg tablet extended release 24 hr 25 mg PO Q12H Other Ambulatory Orders: Basic Metabolic Panel (Routine) Timeframe: 1 Week Location: Determined by Patient Ordered By: Pierre Mack Date of admission: 03/28/25 07:49 Primary Care Provider: Masha Hayden Admitting Provider: Sidra Gould Attending physician on admission: Sidra Gould Condition: Stable
== END 2025-03-30 16:37 | disposition home or self-care (01) | DRG 720 ==
LOC: ANHED 23:27 → ANHIMU 03-28 00:06
PROVIDERS: Internal Medicine Gastroenterology; Admitting Provider Internal Medicine; Emergency Provider Physician Assistant; Visit Provider General Practice
DX: A41.9 Sepsis, unspecified organism (principal); I10 Essential (primary) hypertension; N17.9 Acute kidney failure, unspecified; E87.20 Acidosis, unspecified; E78.5 Hyperlipidemia, unspecified; E11.42 Type 2 diabetes mellitus with diabetic polyneuropathy; E04.1 Nontoxic single thyroid nodule; E86.0 Dehydration; E83.42 Hypomagnesemia; F41.8 Other specified anxiety disorders; G89.29 Other chronic pain; J44.9 Chronic obstructive pulmonary disease, unspecified; K52.9 Noninfective gastroenteritis and colitis, unspecified; L03.032 Cellulitis of left toe; M86.172 Other acute osteomyelitis, left ankle and foot; R65.20 Severe sepsis without septic shock; R91.8 Other nonspecific abnormal finding of lung field; R10.11 Right upper quadrant pain; R31.29 Other microscopic hematuria; Z22.322 Carrier or suspected carrier of Methicillin resistant Staphylococcus aureus; Z95.4 Presence of other heart-valve replacement; Z87.891 Personal history of nicotine dependence; Z79.82 Long term (current) use of aspirin; Z79.01 Long term (current) use of anticoagulants
CPT/HCPCS: 36415; 36600; 70450; 71260; 73630; 74177; 76705; 76775; 80048; 80053; 80307; 81001; 82077; 82375; 82550; 82565; 82805; 82948; 83036; 83050; 83540; 83550; 83605; 83690; 83735; 83880; 84100; 84132; 84443; 85018; 85025; 85027; 85055; 85610; 85730; 87040; 87045; 87427; 87449; 87493; 87637; 87641; 93005; 96361; 96365; 96366; 96367; 96375; 96376; 99285; A9270; G0378; G0379; J0780; J1200; J2270; J2405; J2543; J2765; J3370; J3475; J3480; J7030; J7040; Q9967

== ENCOUNTER 2025-05-14 14:38 | Inpatient (IN) | payer OTHER, SELFPAY ==
[2025-05-14] VITALS (8 sets, daily range): BP systolic 127–181; BP diastolic 69–90; PULSE 67–92; RESP 14–18; TEMP 36.4–36.7; O2SAT 100; BMI 29.3
--- NOTE | ~2025-05-14 | CT_ITS ---
EXAMINATION: CT abdomen pelvis w con DATE: 05/14/2025 17:35 INDICATION: RUQ abd pain TECHNIQUE: Computed tomography (CT) of the abdomen and pelvis was performed with 100 mL Omnipaque-350 intravenous contrast. Automated exposure control and iterative reconstruction technique were employe d. The dose-length product was 929.63 mGy-cm. COMPARISON: 03/27/2025. FINDINGS: Lower thorax: Status post mitral valve replacement Liver: Enlarged. Subcentimeter right lobe hypodensity near the dome, too small to characterize, likel y cyst or hemangioma. Biliary/Gallbladder: Distended gallbladder. No wall thickening or surrounding inflammatory change. No stones detected. Mild intrahepatic and extra hepatic bile duct dilation, the common duct measures up to 9 mm in the rosalia hepatis. Pancreas: Moderate atrophy. Spleen: Enlarged. Adrenals:No mass. Kidneys: 13 mm nonobstructing right lower pole opacification. Moderate bilateral perinephric strandin g. Chronic right pelviectasis and urothelial enhancement. GI tract: Mild distal esophageal and gastric wall edema. No small or large bowel dilation. Normal donavan endix. Diverticulosis without diverticulitis. Mesentery/Peritoneum: No ascites, mass, or free air. Retroperitoneum: No mass. Atherosclerotic calcifications of intra-abdominal arterial vessels. Pelvis: Mild urinary bladder wall thickening. Trace free pelvic fluid. Soft Tissues: Bilateral inguinal lymphadenopathy. Small uncomplicated fat-containing umbilical hernia . Bones: No acute osseous finding. IMPRESSION: Hepatosplenomegaly. Mild esophagitis/gastritis. Gallbladder hydrops, with mild intra and extrahepatic bile duct dilation. No significant gallbladder inflammatory change. No obstructing stone or mass detected. Consider MRCP. Chronic right pelviectasis and urothelial enhancement, may represent a degree of UPJ obstruction and/ or pyelitis. Mild urinary bladder wall thickening may be secondary to incomplete distention or cystitis. Trace ascites. Bilateral inguinal lymphadenopathy Reviewed, dictated and finalized at location K. IMPRESSION: Hepatosplenomegaly. Mild esophagitis/gastritis. Gallbladder hydrops, with mild intra and extrahepatic bile duct dilation. No si gnificant gallbladder inflammatory change. No obstructing stone or mass detecte d. Consider MRCP. Chronic right pelviectasis and urothelial enhancement, may represent a degree o f UPJ obstruction and/or pyelitis. Mild urinary bladder wall thickening may be secondary to incomplete distention or cystitis. Trace ascites. Bilateral inguinal lymphadenopathy
--- NOTE | ~2025-05-14 | XR_ITS ---
EXAMINATION: XR chest 1V portable Exam Date/Time: 05/14/2025 19:02 CDT HISTORY: fever Comparison: 09/28/2023. RESULT: Lines, tubes, and devices: Intact sternotomy wires. Cardiac valve replacement. Lungs and pleura: Clear. Cardiomediastinal silhouette: Stable. Other: No acute osseous or upper abdominal finding. IMPRESSION: No acute cardiopulmonary process. Reviewed, dictated and finalized at location K.
--- NOTE | ~2025-05-14 | XR_ITS ---
EXAM: XR foot RT min 3V DATE: 05/14/2025 16:42 HISTORY: 1st toe ulcer . COMPARISON: 01/08/2023. FINDINGS: Decreased mineralization. Status post right first distal phalanx amputation. No fracture o r dislocation. No lytic or blastic lesion. Mild scattered degenerative changes. Focal erosion in the distal and medial aspect of the first distal phalanx, deep to a soft tissue ulceration. IMPRESSION: Findings concerning for osteomyelitis involving the distal aspect of the right first prox imal phalanx. Reviewed, dictated and finalized at location K. IMPRESSION: Findings concerning for osteomyelitis involving the distal aspect o f the right first proximal phalanx.
--- NOTE | ~2025-05-14 | US_ITS ---
US venous doppler LE RT - 05/15/2025 9:07 CDT History: 44 years old Male with right lower extremity pain and swelling. Real-time sonographic images of the right lower extremity venous system were obtained. Color Doppler sonography and spectral waveform analysis were performed. No prior studies for comparison. The right sapheno-femoral junctions are patent. The right common femoral, superficial femoral, popl iteal and posterior tibial veins are compressible and without evidence of echogenic thrombus. Impression: No evidence of deep venous thrombosis Reviewed, dictated and finalized at location A. Impression: No evidence of deep venous thrombosis
--- NOTE | ~2025-05-14 | XR_ITS ---
EXAM: XR foot LT min 3V DATE: 05/14/2025 16:42 HISTORY: 2nd toe ulcer . COMPARISON: None available. FINDINGS: Decreased mineralization. No fracture or dislocation. No lytic or blastic lesion. Mild sca ttered degenerative changes. Achilles and plantar enthesopathy. Progressive erosion of the left secon d distal phalanx, with overlying soft tissue ulceration. Vascular calcifications. IMPRESSION: Findings concerning for progressive osteomyelitis involving the left second distal phalan x. Reviewed, dictated and finalized at location [facility]. IMPRESSION: Findings concerning for progressive osteomyelitis involving the lef t second distal phalanx.
--- OUTSIDE RECORDS SUMMARY | 2025-05-14 14:40 | XMS_ITS | Clinical Summary ---
Author Organization [facility] Address [facility] [place] [address] Care Team Providers Care Therapy Site Coordinator Name Role Phone Uyen Vieyra MD Primary Care Provider [phone] Allergies Active Allergy Reactions Criticality Noted Date Comments Tramadol Hallucinations 12/25/2019 Medications BASAGLAR KWIKPEN 100 UNIT/ML injection (PEN) Inject 80 Units into the skin daily. 5 03/23/2019 Active losartan-hydroch lorothiazide 100-25 MG tablet Take 1 tablet by mouth daily. 4 03/27/2019 Active metoprolol tartrate 100 MG tablet Take 100 mg by mouth 2 (two) times daily. 3 04/05/2019 Active naproxen 500 MG tablet TAKE 1 T PO TWICE DAILY NEEDED 4 04/11/2019 Active sertraline 100 MG tablet Take 200 mg by mouth daily. Active hydrochlorothiaz godwin 25 MG tablet Take 25 mg by mouth daily. 4 10/05/2019 Active Active Problems Problem Noted Date Diagnosed Date Diabetic foot infection ([facility]) 2018 Chronic pain of both knees 08/06/2018 Thoracic or lumbosacral neur itis or radiculitis, unspecified 06/25/2011 Immunizations Immunization Administration Dates Next Due Tdap (Adacel) 06/14/2019 Family History Medical History Relation Comments Cancer Father Diabetes Father Hypertension Mother Stroke Mother Relation Status Comments Father Mother Social History Tobacco Use Types Packs/Day Years Used Date Smoking Tobacco: Every Day Cigarettes 1.5 15 Smokeless Tobacco: Never Tobacco Cessation:Ready to Q uit: No Alcohol Use Standard Drinks/Week Comments No 0 (1 standard drink = 0.6 oz pur e alcohol) AUDIT-C Answer Date Recorded Frequency of Alcohol Consumption Never 05/15/2019 Average Number of Drinks Not on file 019 Frequency of Binge Drinking Not on file 05/2019 Sex and Gender Information Value Date Recorded Sex Assigned at Not on file Legal Sex Male 6:38 PM CDT Gender Identity Not on file Sexual Orientation Not on file Last Filed Vital Signs Vital Sign Reading Time Taken Comments Blood Pressure 124/73 04/17/2020 5:20 PM CDT Pulse 88 04/17/2020 5:20 PM CDT Temperature 36.9 C (98.5 F) 04/17/2020 5:20 PM CDT Respiratory Rate 20 04/17/2020 5:20 PM CDT Oxygen Saturation 96% 04/17/2020 5:20 PM CDT Inhaled Oxygen Concentration - - Weight 108.9 kg (240 lb) 01/10/2020 12:02 PM [employer] Height 185.4 cm (6' 1) 04/17/2020 5:20 PM CDT Body Mass Index 31.66 01/10/2020 12:02 PM [employer] Plan of Treatment Health Maintenance Due Date Last Done Comments Kidney Health Evaluation 1980 Lipid Panel 1980 Annual Physical 1983 Diabetes: Retinopathy Eye Exam 1998 Hepatitis C 1998 Hepatitis B Vaccines (1 of 3 - 19+ 3-dose series) 1999 Pneumococcal Vaccine: Pediat rics (0 to 5 Years) and At-Risk Patients (6 to 49 Years) (1 of 2 - PCV) 1999 Hemoglobin A1C 03/26/2020 09/26/2019 COVID-19 Vaccine (1 - 2023-2 5 season) 2024 DTaP, Tdap and Td Vaccines ( 2 - Td or Tdap) 06/14/2029 06/14/2019 HPV Vaccines Aged Out No longer eligi ble based on patient's age to complete this topic Meningococcal B Vaccine Aged Out No l onger eligible based on patient's age to complete this topic Meningococcal Vaccine Aged Out No tray osmani eligible based on patient's age to complete this topic RSV Immunizations Under 20 Months Aged Out No longer eligible based on patient's age to complete this topic Procedures Procedure Name Priority Date/Time Associated Diagnosis Comments HEMOGLOBIN, GLYCOSYLATED Routine 09/26/2019 5:58 AM [employer] from Last 3 Months or Most Recently Relevant to Health Maintenance Results * (ABNORMAL) HEMOGLOBIN, GLYCOSYLATED (09/26/2019 5:58 AM [employer]) HGB A1C 10.5(H) <5.7 % 09/26/2019 12:00 PM [employer] [facility] Comment: INCREASED RISK OF DIABETES <5.7% NON-DIABETES 5.7-6.4% INCREASED RISK FOR FUTURE DIABETES > OR = 6.5 CONSISTENT WITH DIABETES STANDARDS OF MEDICAL CARE IN DIABETES-2010 DIABETES CARE, 33(SUPP 1): S1-S61,2010 09/26/2019 5:58 AM [employer] Deisy Gregory PA-C LABORATORY Final Result [facility] [address] [place] [address], from Last 3 Months or Most Recently Relevant to Health Maintenance Insurance [employer] Advance Directives * Full Code (Latest Code Status on File) Date Activated Date Inactivated Comments 09/25/2019 12:09 PM 09/27/2019 12:08 PM Care Teams Therapy Site Coordinator Relationship Specialty Start Date End Date Uyen Vieyra MD [address] [place] [address] [place] [address] PCP - General FAMILY PRACTICE 04/17/19
--- OUTSIDE RECORDS SUMMARY | 2025-05-14 14:40 | XMS_ITS | Data Portability ---
Author Organization [facility] [employer], Main Office Address [address] [place] [address] Assessment Encounter Date Assessment Date Assessment LastModified by Organization Details LastModified Time 06/10/2023 06/10/2023 This note is dictated and transcribed by [employer]. [employer] variances may occur. Despite proofreading, typographical errors may occur. Not available 06/10/2023 18:00:03 09/09/2023 09/09/2023 This note is dictated and transcribed by [employer]. [employer] variances may occur. Despite proofreading, typographical errors may occur. Not available 09/17/2023 12:37:06 09/23/2023 09/23/2023 This note is dictated and transcribed by [employer]. [employer] variances may occur. Despite proofreading, typographical errors [...] preta tion No observ ation record ed. [email or web address] [facility] [address], [place], [address], 09/02/2023 10:41:20 09/01/20 23 09/01/2023 imagi ng inter preta tion No observ ation record ed. [email or web address] [place] [address] [address], [place], [address], 09/02/2023 11:03:27 09/01/20 23 09/01/2023 imagi ng inter preta tion No observ ation record ed. [email or web address] [place] [address] [address], [place], [address], 09/02/2023 11:04:01 09/06/20 23 09/06/2023 CT, foot, w/ contr ast No observ ation record ed. [address] [facility], [place], [address], 03/22/2024 11:07:09 09/16/20 23 09/16/2023 XR, chest , 2 view No observ ation record ed. [email or web address] [address], [place], [address], 03/22/2024 11:17:18 09/17/20 23 09/17/2023 , [facility] ardio gram No observ ation record ed. [email or web address] [place], [place] [address]e [facility], [place], [address], 03/22/2024 11:17:28 09/17/20 23 09/17/2023 CT, chest + abdom en, w/ contr ast No observ ation record ed. [email or web address] [address] [facility], [place], [address], 03/22/2024 11:17:49 09/19/20 23 09/18/2023 XR, chest , 1 view No observ ation record ed. [address] [facility], [place], [address], 03/22/2024 11:18:00 09/20/20 23 09/20/2023 XR, chest , 1 view No observ ation record ed. [email or web address] [place] [address] [address], [place], [address], 03/22/2024 11:18:18 09/28/20 23 09/28/2023 XR, chest No observ ation record ed. [address], [place], [address], 03/21/2024 15:02:57 09/28/20 23 09/28/2023 XR, chest No observ ation record ed. [address], [place], [address], 03/21/2024 15:03:06 09/28/20 23 09/28/2023 XR, abdom en No observ ation record ed. [address] [address], [place], [address], 03/21/2024 15:03:28 09/28/20 23 09/28/2023 , [facility] ardio gram No observ ation record ed. [address], [place], [address], 03/21/2024 15:03:44 09/28/20 23 09/28/2023 XR, chest , 1 view No observ ation record ed. [address] [facility], [place], [address], 03/21/2024 15:03:58 09/28/20 23 09/28/2023 CT, abdom en + pelvi s, w/o contr ast No observ ation record ed. [address], [place], [address], 03/21/2024 15:04:15 09/28/20 23 09/28/2023 XR, chest , 1 view No observ ation record ed. [address], [place], [address], 03/21/2024 15:04:27 09/28/20 23 09/28/2023 thora cente sis (PROC ) No observ ation record ed. [address], [place], [address], 03/21/2024 15:04:53 09/28/20 23 09/28/2023 XR, chest , 1 view No observ ation record ed. [address], [place], [address], 03/21/2024 15:05:02 09/28/20 23 09/28/2023 biops y, absce ss (PROC ) No observ ation record ed. [address] [address], [place], [address], 03/21/2024 15:07:20 03/27/20 25 03/27/2025 imagi ng/di agnos tic resul t No observ ation record ed. [address] [address], [place], [address], 03/27/2025 22:38:24 03/27/20 25 03/27/2025 imagi ng/di agnos tic resul t No observ ation record ed. [address] [address], [place], [address], 03/27/2025 22:57:16 03/28/20 25 03/27/2025 imagi ng/di agnos tic resul t No observ ation record ed. [address], [place], [address], 03/28/2025 01:35:40 03/28/20 25 03/28/2025 imagi ng/di agnos tic resul t No observ ation record ed. [address], [place], [address], 03/28/2025 13:05:46 Result Notes None recorded. Problems Name Problem SNOMED Code Status Onset Date Resolution Date Notes Provider Name and Address Organization Details Recorded Time Lumbar radiculopa thy 727143249 Active Not Available [facility] 4 01:06:03 Hyperchole sterolemia 20494050 Active Not Available [facility] 4 01:06:03 Peripheral neuropathy due to type 2 diabetes mellitus 9998871804231 Active 2020 Not Available [facility] 4 01:06:03 Dry skin 27888218 Active 2020 Not Available [facility] 4 01:06:03 On examinatio n - skin fissures present Active 2020 Not Available [facility] 4 01:06:03 Adjustment disorder 34079282 Active Not Available [facility] 4 01:06:03 Spinal stenosis of lumbar region 44195135 Active Not Available [facility] 4 01:06:03 Abdominal pain 36744047 Active Not Available [facility] 4 01:06:04 Gastroesop hageal reflux disease 970889634 Active Not Available [facility] 4 01:06:04 Lumbar spondylosi s 735501361 Active Not Available [facility] 4 01:06:04 Shoulder joint pain 352941666 Active Not Available [facility] 4 01:06:04 Low back pain 290359462 Active Not Available [facility] 4 01:06:04 Cyst of skin 239726147 Active Not Available [facility] 4 01:06:04 Hypertrigl yceridemia 134920909 Active Not Available [facility] 4 01:06:04 Knee pain Active Not Available [facility] 4 01:06:04 Laceration - injury 363800618 Active Not Available [facility] 4 01:06:04 Type 2 diabetes mellitus without complicati on 725794835 Active Not Available [facility] 4 01:06:04 Bronchitis 65990056 Active Not Available [facility] 4 01:06:04 Blood in urine 64961327 Active Not Available [facility] 4 01:06:04 Vitamin D deficiency 72481918 Active Not Available [facility] 4 01:06:04 Depressive disorder 14760518 Active Not Available [facility] 4 01:06:04 Misuses drugs 492422303 Active 2019 Not Available [facility] 4 01:06:04 Hypertensi ve disorder 48749988 Active Not Available [facility] 4 01:06:04 Neuropathy 027426497 Active 2016 Not Available [facility] 4 01:06:04 Disorder of rotator cuff 048831400 Active Not Available [facility] 4 01:06:04 Diabetic peripheral neuropathy 580355641 Active 2019 Not Available [facility] 4 01:06:04 Eczema 42093097 Active Not Available [facility] 4 01:06:04 Viral syndrome 663490849 Active Not Available [facility] 4 01:06:04 Pain of shoulder region 51720796 Active Not Available [facility] 4 01:06:04 Foot pain 17962101 Active 2020 Not Available [facility] 4 01:06:04 Anxiety 00492950 Active Not Available [facility] 4 01:06:04 Cough 07979137 Active Not Available [facility] 4 01:06:04 Upper respirator y infection 11798412 Active Not Available [facility] 4 01:06:04 Hyperlipid emia 89027466 Active Not Available [facility] 4 01:06:04 Disorder of bursa of shoulder region 08988235 Active Not Available [facility] 4 01:06:04 Wheezing 79014487 Active Not Available [facility] 4 01:06:04 Pain of joint 36531766 Active Not Available [facility] 4 01:06:04 Pruritic rash 91126283 Active Not Available [facility] 4 01:06:04 Hypercalce shakira 36976085 Active Not Available [facility] 4 01:06:04 Muscle pain 73118795 Active Not Available [facility] 4 01:06:04 Diabetes mellitus 27063896 Active Not Available [facility] 4 01:06:04 Hyperglyce shakira 75591791 Active Not Available [facility] 4 01:06:04 Neck pain 50822718 Active Not Available [facility] 4 01:06:04 Skin lesion 79051687 Active Not Available [facility] 4 01:06:04 Kidney stone 53797678 Active Not Available [facility] 4 01:06:04 Insomnia 236214608 Active 2022 Not Available [facility] 4 01:06:03 Hernia of anterior abdominal wall 820832637 Active 2022 Not Available [facility] 4 01:06:04 Ulcer of right foot due to type 2 diabetes mellitus 7813276292189 9102 Active 2022 Not Available [facility] 4 01:06:03 Diabetic foot ulcer 711071731 Active 2022 Not Available [facility] 4 01:06:04 Diabetic foot ulcer 894838021 Active 2022 Not Available [facility] 4 01:06:04 Hypokalemi a 15064490 Active 2022 Not Available [facility] 4 01:06:04 Pressure injury of sacral region of back 259727033 Active 2023 Uyen Vieyra MD [address], [place], [address] , [employer] 4 11:35:43 Problem Notes None recorded. Procedures Surgical History Date Name Laterality Status Provider Name and Address Organization Details Recorded Time 3 endoscopy completed Virginie Pascual LPN [facility] 11/06/2023 08:51:19 3 Wound Care-Podiatry completed Robert Bradshaw DPM [address], [place], [address], [employer] 09/23/2023 17:05:49 3 Wound Care-Podiatry completed Robert Bradshaw DPM [address], [address], [place], [address], [facility] 09/23/2023 09:56:11 3 Wound Care-Podiatry completed Robert Bradshaw DPM [address], [address], [place], [address], [facility] 06/25/2023 09:17:02 3 Wound Care-Podiatry completed Robert Bradshaw DPM [address], [address], [place], [address], [facility] 06/10/2023 17:59:53 3 Wound Care-Podiatry completed Robert Bradshaw DPM [address], [address], [place], [address], [facility] [employer] [facility] 06/03/2023 17:23:59 3 Wound Care-Podiatry completed Hillary Mo RN [facility] [employer] [facility] 05/27/2023 16:30:58 3 Wound Care-Podiatry completed Marilyn Beal RN [facility] [employer] [facility] 05/20/2023 17:17:29 3 Wound Care-Podiatry completed Hillary Mo RN [facility] [employer] [facility] 05/13/2023 15:56:55 3 Wound Care-Podiatry completed Hillary Mo RN [facility] [employer] [facility] 05/06/2023 17:40:57 3 Wound Care-Podiatry completed Marilyn Beal RN [facility] [employer] [facility] 04/22/2023 18:31:31 3 Wound Care-Podiatry completed Hillary Mo RN [facility] [employer] [facility] 04/15/2023 17:39:58 3 Wound Care-Podiatry completed Marilyn Beal RN [facility] [employer] [facility] 04/08/2023 16:50:43 3 Wound Care-Podiatry completed Hillary Mo RN [place] [employer] 04/01/2023 16:25:29 3 Wound Care-Podiatry completed Robert Bradshaw DPM [address], [address], [place], [address], [employer] [facility] [employer] 03/25/2023 17:33:03 3 Wound Care-Podiatry completed Robert Bradshaw DPM [address], [place], [address], [employer] 03/18/2023 16:09:01 3 Wound Care-Podiatry completed Robert Bradshaw DPM [address], [address], [place], [address], [employer] 03/18/2023 16:12:54 3 Wound Care-Podiatry completed Marilyn Beal RN [facility] [employer] [facility] 03/04/2023 16:15:08 3 Wound Care-Podiatry completed Robert Bradshaw DPM [address], [place], [address], [employer] [facility] 02/26/2023 17:54:08 3 Wound Care-Podiatry completed Marilyn Beal RN [facility] [employer] [facility] 02/19/2023 19:01:04 3 Wound Care-Podiatry completed Robert Bradshaw DPM [address], [place], [address], [employer] [facility] [employer] 02/18/2023 15:32:35 3 Wound Care-Podiatry completed Marilyn Beal RN [facility] [employer] [facility] 02/04/2023 15:49:06 Kidney Stones completed Not Available [employer] 01/07/2023 05:56:33 Imaging Results None recorded. Procedure Notes None recorded. Medical Equipment None Reported. Allergies Allergen ID Allergen Name Allergen Category Reaction Reaction Severity Criticality Documentation Date Start Date Code Code System Note Provider Name and Address Organization Details Recorded Time 94351 tramadol medicatio n Not available Not available Not available 01/07/2023 75247 RxNorm Not Available [facility] 3 06:09:31 Medications Name Sig Start Date [...] ml per neb x 1 08/09 completed [facility]87 010145 Not Available Not Available Not Available ammonium [...] Not Available Not Available No t Available [employer] Ultra Test strips USE TO TEST BLOOD [...] injected right knee x 1 08/09 completed [facility] 44344-63 5-57 Not Available Not Available Not Available [...] Pulse oximetry Respiratory rate Heart rate Systolic And Diastolic Provider Name and Address Organization Details Last Updated DateTime 3 185.42 cm 98.2 [degF] 98 % 98 % 18 /min 65 /min 121/77 mm[Hg] Hillary Mo RN [facility] [employer] [facility] 3 17:01:47 Date Recorded Body height Heart rate Respiratory rate Body temperature Oxygen saturation Oxygen saturation in Arterial blood by Pulse oximetry Systolic And Diastolic Provider Name and Address Organization Details Last Updated DateTime 3 185.42 cm 89 /min 18 /min 98 [degF] 98 % 98 % 120/79 mm[Hg] Hillary Mo RN [facility] [employer] [facility] 3 17:36:27 Date Recorded Body height Body temperature Oxygen saturation Oxygen saturation in Arterial blood by Pulse oximetry Respiratory rate Heart rate Systolic And Diastolic Provider Name and Address Organization Details Last Updated DateTime 3 185.42 cm 98.2 [degF] 98 % 98 % 18 /min 84 /min 109/72 mm[Hg] Hillary Mo RN [facility] [employer] [facility] 3 16:31:17 Date Recorded Body height Heart rate Oxygen saturation Oxygen saturation in Arterial blood by Pulse oximetry Body temperature Systolic And Diastolic Provider Name and Address Organization Details Last Updated DateTime 3 185.42 cm 106 /min 97 % 97 % 97.7 [degF] 125/73 mm[Hg] Loi Rosen RN [place] [facility] [place] [employer] 3 16:29:12 Social History Question Answer Notes LastModified by eDealya Details LastModified Time Tobacco Smoking Status Current Every Day Smoker Not Available [facility] 01/07/2023 05:54:40 What Is Your Level Of Caffeine Consumption? Occasional [id number] Information not available 01/07/2023 In The 14 Days Before Symptom Onset, Have You Had Close Contact With A Laboratory-confir med COVID-19 While That Case Was Ill? No [id number] Information not available 01/07/2023 In The 14 Days Before Symptom Onset, Have You Had Close Contact With A Person Who Is Under Investigation For COVID-19 While That Person Was Ill? No [id number] Information not available 01/07/2023 What Type Of Diet Are You Following? REGULAR [id number] Information not available 01/07/2023 Which Illicit Or Recreational Drugs Have You Used? NO [id number] Information not available 01/07/2023 At What Age Did You Start Smoking Tobacco? 12 [id number].[id number] Information not available 01/07/2023 How Much Tobacco Do You Smoke? 1 PPW MIGRATION.[id number] 8033 Information not available 01/07/2023 How Many Years Have You Smoked Tobacco? 20 [id number].[id number] Information not available 01/07/2023 Sex: Unknown Functional Status Question Answer Note LastModified by [employer] Details LastModified Time What is your level of alcohol consumption? Occasional [id number].[id number] Information not available 01/07/2023 Do you or have you ever used smokeless tobacco? Never used smokeless tobacco MIGRATION.[id number] 026 Information not available 01/07/2023 Do you or have you ever used e-cigarettes or vape? Never used electronic cigarettes MIGRATION.[id number] 026 Information not available 01/07/2023 What is your exercise level? Occasional [id number].[id number] 026 Information not available 01/07/2023 Mental Status None recorded. Family History Nothing Reported Notes:Diabetes, SD, CVA Medical History Condition Response ALLERGIES/HAYFEVER N BACK INJECTIONS N LUNG DISEASE/DISORDER N ESRD N HISTORY OF DRUG ABUSE N INSOMNIA Y COPD N RADIATION / CHEMOTHERAPY N HIGH CHOLESTEROL / HYPERLIPIDEMIA Y RHEUMATOID ARTHRITIS N PVD N EDEMA N CAROTID BLOCKAGE N SHINGLES N DEPRESSION (INCLUDING POST ) Y BOWEL PROBLEMS N BACK / NECK PROBLEMS Y HAVE YOU BEEN HOSPITALIZED OR SEEN IN [facility] IN THE PAST YEAR ? Y FAILED BACK SYNDROME N STROKE/TIA N LYMPHEDEMA N THYROID DISEASE N TB SKIN TEST N POLYCYSTIC OVARIES [...] WILLIBRAND'S DISEASE N PERIPHERAL VASCULAR DISEASE N PERIPHERAL ARTERY DISEASE N HEARTBURN / REFLUX N AFIB N Do you have a living will? N BLOOD CLOTS N POST LAMINECTOMY SYNDROME N HEPATITIS / LIVER DISEASE N PULMONARY DISEASE N USE OF NSAIDS N GOUT N ALZHEIMER'S DISEASE N PAIN N ARTERIAL INSUFFICIENCY N SEIZURES/EPILEPSY N HEADACHES/MIGRAINES N CHF N VASCULAR DISEASE N Blood Disorder N DIZZINESS N NEUROPATHY Y KIDNEY DISEASE N HEART DISEASE/HEART PROBLEMS N AIDS/HIV N MENTAL DISORDER/ILLNESS N LIVER DISEASE N NEUROPSYCHOLOGICAL N HYPERTENSION Y CARDIAC ARRHYTHMIA N CANCER: SPECIFY N TOURETTE'S N ANXIETY DISORDER Y ANESTHESIA COMPLICATIONS N ANEMIA/BLOOD DISORDER N BIPOLAR DISORDER N AUTOIMMUNE DISEASE N OSTEOARTHRITIS N TUBERCULOSIS N FOOT PROBLEM Y Immunizations Vaccine Type Date Status Note Provider Nam e and Address Organization Details Recorded Time Tdap 08/01/2013 completed Not Available [facility] 12/10/2023 01:06:05 Past Encounters Encounter ID Performer Location Encounter Start Date Encounter Closed Date Diagnosis/Indication Diagnosis SNOMED-CT Code Diagnosis ICD10 Code Diagnosis Note [id number] Uyen Vieyra MD [facility] [address] [place] [address] 05/14/2021 00:00:00 05/14/2021 18:41:26 [id number] Uyen Vieyra MD [facility] [address] [place] [address] 05/16/2021 00:00:00 05/31/2021 10:34:36 [id number] [facility] Nikkie [place] [address] [facility] [address] [place] [address] 08/19/2021 00:00:00 08/20/2021 14:03:49 [id number] JERROD Wei [facility] [place] [address] [place] [address] 08/21/2021 00:00:00 08/21/2021 16:03:17 [id number] JERROD Wei [facility] [place] [address] [place] [address] 08/28/2021 00:00:00 08/28/2021 16:24:05 [id number] JERROD Wei [facility] [place] [address] [place] [address] 09/23/2021 00:00:00 09/23/2021 16:54:28 [id number] JERROD Wei [facility] [place] [address] [place] [address] 03/11/2022 00:00:00 03/11/2022 16:02:58 [id number] JERROD Wei [facility] [place] [address] [place] [address] 05/20/2022 00:00:00 05/20/2022 17:02:37 [id number] Uyen Vieyra MD [facility] [place] [address] [place] [address] 08/05/2022 00:00:00 08/05/2022 17:48:40 [id number] JERROD Wei [facility] [place] [address] [place] [address] 08/12/2022 00:00:00 08/12/2022 16:50:12 [id number] Robert Bradshaw DPM [facility] [address] [place] [address] 02/04/2023 14:23:18 02/04/2023 16:13:36 Ulcer of right foot due to type 2 diabetes mellitus [id number] 5381817 E11.621 Betadine wet-to-dry dressings dailyofflo ading At all times, continue will checkfollo w-up in 2 weeks Diabetic p eripheral neuropathy 922990542 E11.40 [id number] Robert Bradshaw DPM [facility] [address] [place] [address] 02/18/2023 14:30:37 02/18/2023 15:45:12 Ulcer of right foot due to type 2 diabetes mellitus 0154206735 0876184 E11.621 Betadine wet-to-dry dressings with iodoform packing due to new tunnelingh h ordered for above QOD dressingso ffloading At all times, continue will checkfollo w-up in 1 week Diabetic foot ulcer 3710 37033 L97.512 sub 3rd metatarsal debrided per noteBetadi ne wet to dry dressings dailyofflo ading with wheelchair follow up in 1 week [id number] [facility] [address] [place] [address] 02/19/2023 17:31:42 02/19/2023 18:00:43 [id number] [facility] [address] [place] [address] 02/25/2023 14:56:42 02/25/2023 15:41:29 Ulcer of right foot due to type 2 diabetes mellitus 2428721183 7150011 E11.621 Betadine wet-to-dry dressings with iodoform packing due to new tunnelingw ound debrided per notehh ordered for above daily dressingso ffloading At all times, continue will checkfollo w-up in 1 week Diabetic foot ulcer 3710 59184 L97.512 sub 3rd metatarsal healed [id number] [facility] [address] [place] [address] 03/04/2023 15:28:33 03/04/2023 16:03:46 Ulcer of right foot due to type 2 diabetes mellitus 8901185422 3779784 E11.621 Betadine wet-to-dry dressings with iodoform packing due to new tunnelingh h ordered for above daily dressingsO rder wound VAC- q.o.d. dressing changes 125mmhg suctionoff loading At all timesobtai n x-raysfoll ow-up in 1 week [id number] [facility] [address] [place] [address] 03/11/2023 15:33:03 03/11/2023 15:59:24 Diabetic foot ulcer 477525978 L97.512 Betadine wet-to-dry dressings with iodoform packing due to new tunnelingh h ordered for above daily dressingsO rder wound VAC- q.o.d. dressing changes 125mmhg suctionoff loading At all timesobtai n x-raysfoll ow-up in 1 week [id number] [facility] [address] [place] [address] 03/18/2023 15:06:59 03/18/2023 16:06:39 Ulcer of right foot due to type 2 diabetes mellitus 0845452576 7017240 E11.621 Wound VAC applied today right heelPatien t educated on the importance of nonweightb earingReco mmend 100% nonweightb earingPati ent educated on how to run wound VACif wound VAC becomes from rheumatic remove dressings and apply Betadine wet-to-dry dressing to prevent worsening of woundFollo w-up in 1 weekNursin g set up for Thursday and Thursday dressing changes [id number] [facility] [address] [place] [address] 03/25/2023 15:35:52 03/26/2023 13:14:59 Ulcer of right foot due to type 2 diabetes mellitus [id number] 6892428 E11.621 Wound VAC Hold until home health is reschedule dwound debrided todayPatie nt educated on the importance of nonweightb earingReco mmend 100% nonweightb earingFoll ow-up in 1 week [id number] [facility] [address] [place] [address] 04/01/2023 16:19:04 04/01/2023 16:40:27 Ulcer of right foot due to type 2 diabetes mellitus [id number] 5520216 E11.621 Wound VAC Hold until home health is reschedule d home healthcurr ently unable to find a new home health agentconti nue Betadine wet-to-dry dressings dailyPatie nt educated on the importance of nonweightb earingReco mmend 100% nonweightb earingFoll ow-up in 1 week [id number] [facility] [address] [place] [address] 04/08/2023 16:38:15 04/08/2023 17:25:51 Ulcer of right foot due to type 2 diabetes mellitus [id number] E11.621 Wound VAC Restart wound VAC with next home health visitappli ed Betadine wet-to-dry dressings todayPatie nt educated on the importance of nonweightb earingReco mmend 100% nonweightb earingFoll ow-up in 1 week [id number] [facility] [address] [place] [address] 04/15/2023 17:17:01 04/15/2023 18:01:27 Ulcer of right foot due to type 2 diabetes mellitus [id number] E11.621 Wound VAC Restart wound VAC [facility] updated orders today-- q.o.d. dressing changes 125 mm mercury continuous right plantar heel woundif wound VAC malfunctio ns patient is to remove the dressing apply Betadine wet-to-dry dressing until nursing can reapply.Jerrod bond educated on the importance of nonweightb earingReco mmend 100% nonweightb earingFoll ow-up in 1 week [id number] [facility] [address] [place] [address] 04/22/2023 18:08:01 04/22/2023 18:40:13 Ulcer of right foot due to type 2 diabetes mellitus [id number] E11.621 hold wound VACchange dressings to daily silver collagen with dry dressingsc hange dressings dailyMonit or for signs of infection at present seek medical attention immediatel yPatient educated on the importance of nonweightb earingReco mmend 100% nonweightb earingFoll ow-up in 2 week [id number] Robert Bradshaw DPM [facility] [address] [place] [address] 05/06/2023 17:35:01 05/06/2023 17:48:10 Ulcer of right foot due to type 2 diabetes mellitus [id number] 6812018 E11.621 hold wound VACchange dressings to daily silver collagen with dry dressingsc hange dressings dailyMonit or for signs of infection at present seek medical attention immediatel yPatient educated on the importance of nonweightb earingReco mmend 100% nonweightb earingFoll ow-up in 2 week [id number] [facility] [address] [place] [address] 05/13/2023 15:31:05 05/13/2023 18:15:02 Ulcer of right foot due to type 2 diabetes mellitus [id number] 0704455 E11.621 hold wound VACchange dressings to daily silver collagen with dry dressingsc hange dressings dailyMonit or for signs of infection at present seek medical attention immediatel yPatient educated on the importance of nonweightb earingReco mmend 100% nonweightb earingFoll ow-up in 2 week [id number] Robert Bradshaw DPM [facility] [address] [place] [address] 05/20/2023 17:12:58 05/20/2023 18:44:39 Ulcer of right foot due to type 2 diabetes mellitus [id number] 7903196 E11.621 hold wound VACchange dressings to daily silver collagen with dry dressingsc hange dressings dailyMonit or for signs of infection at present seek medical attention immediatel yPatient educated on the importance of nonweightb earingReco mmend 100% nonweightb earingFoll ow-up in 2 week [id number] Robert Bradshaw DPM [facility] [address] [place] [address] 05/27/2023 16:05:29 05/27/2023 16:48:09 Ulcer of right foot due to type 2 diabetes mellitus [id number] 8767083 E11.621 discontinu e wound VACchange dressings to daily silver collagen with dry dressingsc hange dressings dailyMonit or for signs of infection at present seek medical attention immediatel yPatient educated on the importance of nonweightb earingReco mmend 100% nonweightb earingFoll ow-up in 1 week [id number] [facility] [address] [place] [address] 06/03/2023 16:56:56 06/03/2023 18:09:02 Ulcer of right foot due to type 2 diabetes mellitus [id number] 7895615 E11.621 Wound debrided per notechange dressings to daily silver collagen with dry dressingsc hange dressings dailyMonit or for signs of infection at present seek medical attention immediatel yPatient educated on the importance of nonweightb earingReco mmend 100% nonweightb earingFoll ow-up in 1 week [id number] Robert Bradshaw DPM [facility] [address] [place] [address] 06/10/2023 17:30:30 06/10/2023 19:20:16 Ulcer of right foot due to type 2 diabetes mellitus [id number] E11.621 Wound debrided per notechange dressings to daily silver collagen with dry dressingsc hange dressings dailyMonit or for signs of infection at present seek medical attention immediatel yPatient educated on the importance of nonweightb earingReco mmend 100% nonweightb earingFoll ow-up in 1 week [id number] Robert Bradshaw DPM Óscar_[facility] [address] [place] [address] 06/24/2023 16:29:13 06/24/2023 18:05:51 Ulcer of right foot due to type 2 diabetes mellitus [id number] 5988650 E11.621 Wound debrided per notechange dressings to daily silver collagen with dry dressingsc hange dressings dailyMonit or for signs of infection at present seek medical attention immediatel yPatient educated on the importance of nonweightb earingReco mmend 100% nonweightb earingFoll ow-up in 1 week [id number] Robert Bradshaw DPM [facility] [address] [place] [address] 09/09/2023 16:27:51 09/10/2023 15:31:44 Ulcer of right foot due to type 2 diabetes mellitus [id number] 7585054 E11.621 right foot times x2 diabetic foot ulcersWoun ds debrided per notechange dressings to daily apply Betadine wet-to-dry dressingsc ultures takenMonit or for signs of infection at present seek medical attention immediatel yPatient educated on the importance of nonweightb earingReco mmend 100% nonweightb earingFoll ow-up in 1 week [id number] Robert Bradshaw DPM [facility] [address] [place] [address] 09/23/2023 16:01:31 09/23/2023 17:26:30 Ulcer of right foot due to type 2 diabetes mellitus [id number] E11.621 right foot times x3 diabetic foot [...] Recorded Advance Directives Directive None Recorded Payers Insurance Date Sequence Insurance Name Policy Number Policy [place] Covered Member ID Strat[place] Member ID Guarantor Name 07/13/2024 1 [facility] - DOS ON OR AFTER 21 (MEDICAID REPLACEMENT - HMO) Robert Dickson [id number] Robert Dickson Notes Date Note Type Note Provider Name and Address Organization Details Recorded Time 06/03/2023 text/html . Patient is a 42-year-old male diabetic who returns the office for follow-up on right heel wound. Patient has continued to slowly heal the wound denies any signs of infection. Patient denies any other complaints. Robert Bradshaw DPM [address], [place], [address], [employer] 06/03/2023 17:24:31 06/10/2023 text/html . Patient is a 42-year-old male diabetic with neuropathy who returns the office for right foot heel wound. Patient continue to reduce pressure to the area and the wound is almost completely healed. Patient denies any new pedal complaints. Robert Bradshaw DPM [address], [place], [address], [employer] 06/10/2023 18:00:15 06/24/2023 text/html . Patient is [...] Bradshaw DPM [address], [place], [address], [employer] 06/25/2023 09:17:24 09/09/2023 text/html . Patient is [...] Bradshaw DPM [address], [place], [address], [employer] [facility] [employer] 09/23/2023 09:56:16 09/23/2023 text/html . Patient is [...] any other complaints. Robert Bradshaw DPM [address] [address], [place], [address], [place] - [facility] 09/23/2023 17:07:46
--- OUTSIDE RECORDS SUMMARY | 2025-05-14 14:40 | XMS_ITS | Encounter Summary ---
Author Organization [facility] Address [facility] [place] [address] Care Team Providers Care Automotive Wholesale Parts Advisor Name Role Phone Uyen Vieyra MD Primary Care Provider [phone] Encounter Details Date Type Department Care Team (Late st Contact Info) Description 09/28/2019 Hospital Follow-up Call [facility] Med/Surg [address] [place] [address] Sujata Carr RN Social History Tobacco Use Types Packs/Day Years Used Date Smoking Tobacco: Every Day Cigarettes 1.5 15 Smokeless Tobacco: Never Alcohol Use Standard Drinks/Week Comments No 0 [...] on file Sexual Orientation Not on file documented as of this encounter Functional Status * RETIRED Are you deaf or do you have serious difficulty hearing Answer Date of Assessment Author Status No 09/25/2019 1:24 PM ADVERTISING STRATEGIST Activ e * RETIRED Are you blind or do you have serious difficulty seeing, even when wearing glasses? Answer Date of Assessment Author Status No 09/25/2019 1:24 PM ADVERTISING STRATEGIST Activ e * Do you have serious difficulty walking or climbing stairs? Answer Date of Assessment Author Status No 09/25/2019 1:24 PM Emily Barrera R N Active * Do you have difficulty dressing or bathing? Answer Date of Assessment Author Status No 09/25/2019 1:24 PM Emily Barrera R N Active * Because of a physical, mental, or emotional condition, do you have difficulty doing errands alone such as visiting a doctor's office or shopping? Answer Date of Assessment Author Status No 09/25/2019 1:24 PM Emily Barrera R N Active documented as of this encounter Mental Status * Because of a physical, mental, or emotional condition, do you have serious difficulty concentrating, remembering, or making decisions? Answer Entry Date Author Status No 09/25/2019 1:24 PM Emily Barrera R N Active documented in this encounter Plan of Treatment Not on file documented as of this encounter Visit Diagnoses Not on filedocumented in this encounter Care Teams Automotive Wholesale Parts Advisor Relationship Specialty Start Date End Date Uyen Vieyra MD [address] [place] [address] [place] [address] PCP - General FAMILY PRACTICE 04/17/19 documented as of this encounter
--- OUTSIDE RECORDS SUMMARY | 2025-05-14 14:40 | XMS_ITS | Clinical Summary ---
Author Organization [facility] [employer] Address [address] [place] [address] Care Team Providers Care Sterile Processing Tech Name Role Phone Uyen Vieyra MD Primary Care Provider [phone] Source Comments [facility],non-owned Affiliates and Associated Physician Practices is amultiple site organization consisting of ambulatory clinics and hospital sitesin [place], [place], [place] and [place]. This disclosure is being madepursuant to the Care Everywhere program and may not contain all information available regarding this patient. Last updated 18.[facility] [employer] Allergies Active Allergy Reactions Criticality Noted Date Comments Penicillins 06/12/2011 Tramadol Dizziness 04/02/2023 Medications * Be aware that medications may not be up to date on this document. Alwaysverify current medications with the patient. Hydrocodone-Ac etaminophen (VICODIN PO) Active GLIPIZIDE POIndications: Diabetes Mellitus Take 4 mg by mouth once daily. Indications: Diabetes Active meloxicam (MOBIC) 15 MG tabletIndicati ons:Chronic pain of both knees Take 1 tablet by mouth once daily 30 tablet 1 8 Active insulin glargine (LANTUS) vial Inject subcutaneously at bedtime Active acetaminophen (TYLENOL) 500 MG tablet Take 1 tablet by mouth every 6 hours as needed for Pain Maximum allowable Acetaminophen amount = 4 Grams (4000 mg) / 24 hours. 30 tablet 0 Active ibuprofen (MOTRIN) 400 MG tablet Take 1 tablet by mouth every 6 hours as needed for Pain 30 tablet 0 Active cyclobenzaprin e (FLEXERIL) 10 MG tablet Take 1 tablet by mouth nightly as needed for Muscle Spasms 10 tablet 0 Active lidocaine (LIDODERM) 5 % patch Apply 1 patch to skin once daily 30 patch 0 Active insulin glargine (Lantus/Semgle e) 100 units/mL penIndications :Type 2 Diabetes Mellitus Inject 80 Units subcutaneously at bedtime. Indications: Type 2 Diabetes Active gabapentin (Neurontin) 100 MG capsuleIndicat ions:Neuropath ic Pain Take 400 mg by mouth 3 times daily. Indications: Neuropathic Pain Active metoprolol tartrate IR (Lopressor) 100 MG tabletIndicati ons:Hypertensi on Take 100 mg by mouth 2 times daily. Indications: High Blood Pressure Disorder Active sertraline (Zoloft) 100 MG tabletIndicati ons:Generalize d Anxiety Disorder Take 150 mg by mouth at bedtime. Indications: Generalized Anxiety Disorder Active Active Problems Problem Noted Date Diagnosed Date Chronic pain of both knees 08/06/2018 Thoracic or lumbosacral neur itis or radiculitis, unspecified 06/25/2011 Social History Tobacco Use Types Packs/Day Years Used Date Smoking Tobacco: Every Day Cigarettes 1 12 Smokeless Tobacco: Never Alcohol Use Standard Drinks/Week Comments Never 0 (1 standard drink = 0.6 oz pur e alcohol) OASIS D0700: Social Isolation Answer Da te Recorded Frequency of experiencing loneliness or isolatio n Never 04/24/2023 OASIS A1250: Transportation Answer Date Recorded Lack of Transportation (Medical) No 04/24/2023 Lack of Transportation (Non-Medical) No 04/24/2023 Patient Unable or Declines to Respond No 04/24/2023 OASIS B1300: Health Literacy Answer Anthony e Recorded Frequency of needing help to read materials from doctor or pharmacy Never 04/24/2023 AUDIT-C Answer Date Recorded Q1: How often do you have a drink containing alc ohol? 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 Not on file Not on file Last Filed Vital Signs Vital Sign Reading Time Taken Comments Blood Pressure 122/78 04/05/2023 1:45 PM CDT Pulse 75 04/05/2023 1:45 PM CDT Temperature 36.6 C (97.8 F) 04/05/2023 1:45 PM CDT Respiratory Rate 18 04/05/2023 1:45 PM CDT Oxygen Saturation 98% 04/05/2023 1:45 PM CDT Inhaled Oxygen Concentration - - Weight 113.4 kg (250 lb) 05/04/2020 6:08 PM CDT Height 185.4 cm (6' 1) 05/04/2020 6:08 PM CDT Body Mass Index 32.98 05/04/2020 6:08 PM CDT Plan of Treatment Health Maintenance Due Date Last Done Comments LIPID TESTING 1980 HIV SCREENING 1995 HEPATITIS C SCREENING 12/15/1998 DTAP/TDAP/TD VACCINES (1 - Tdap) 1999 HEPATITIS B VACCINE (1 of 3 - 19+ 3-dose series) 1999 PNEUMOCOCCAL VACCINE (1 of 2 - PCV) 1999 COVID-19 VACCINE (1 - 2023-2 5 season) 2024 DEPRESSION SCREENING 11/09/2024 INFLUENZA VACCINE (Season Ended) 2025 ZOSTER VACCINE (1 of 2) 2030 HIB VACCINE Aged Out No longer eligi ble based on patient's age to complete this topic HPV VACCINE Aged Out No longer eligi ble based on patient's age to complete this topic MENINGOCOCCAL (Group B) VACC INE SHARED DECISION-MAKING Aged Out No longer eligibl e based on patient's age to complete this topic MENINGOCOCCAL GROUPS A/C/Y/W VACCINE Aged Out No longer eligible b ased on patient's age to complete this topic Insurance [facility] [place] [address] [facility] Advance Directives * Full Code (Latest Code Status on File) Date Activated Date Inactivated Comments 04/02/2023 8:00 PM To update the patient's code status, place a code status order. Do not modify or discontinue any currently active code status orders. Care Teams Sterile Processing Tech Relationship Specialty Start Date End Date Uyen Vieyra MD [address] [place] [address] PCP - General 07/16/18
--- OUTSIDE RECORDS SUMMARY | 2025-05-14 14:40 | XMS_ITS | Encounter Summary ---
Author Organization [facility] Address [facility] [place] [address] Care Team Providers Care Cath Lab Nurse Name Role Phone Uyen Vieyra MD Primary Care Provider [phone] Reason for Visit * Reason Onset Date Comments Follow Up Call 10/22/2019 Encounter Details Date Type Department Care Team (Late st Contact Info) Description 10/22/2019 Telephone [facility] Med/Surg [address] [place] [address] Qasim Meyers CNA Follow Up Call Social History Tobacco Use Types Packs/Day Years [...] Assessment Author Status No 09/25/2019 1:24 PM DISPATCHER MAINTENANCE SERVICE Activ e * RETIRED Are you blind or do you have serious difficulty seeing, even when wearing glasses? Answer Date of Assessment Author Status No 09/25/2019 1:24 PM DISPATCHER MAINTENANCE SERVICE Activ e * Do you have serious [...] on filedocumented in this encounter Care Teams Cath Lab Nurse Relationship Specialty Start Date End Date Uyen Vieyra MD [address] [place] [address] [place] [address] PCP - General FAMILY PRACTICE 04/17/19 documented as of this encounter
--- OUTSIDE RECORDS SUMMARY | 2025-05-14 15:55 | XMS_ITS | Clinical Summary ---
Author Organization [facility] Address [facility] [place] [address] Care Team Providers Care Assistant Golf Coach Name Role Phone Uyen Vieyra MD Primary Care Provider [phone] Allergies Active Allergy Reactions Criticality Noted Date [...] Noted Date Diagnosed Date Diabetic foot infection ([facility]) 2018 Chronic pain of both knees 08/06/2018 [...] 108.9 kg (240 lb) 01/10/2020 12:02 PM BUNDLES HANGER Height 185.4 cm (6' 1) 04/17/2020 5:20 PM CDT Body Mass Index 31.66 01/10/2020 12:02 PM BUNDLES HANGER Plan of Treatment Health Maintenance Due Date [...] Comments HEMOGLOBIN, GLYCOSYLATED Routine 09/26/2019 5:58 AM BUNDLES HANGER from Last 3 Months or Most Recently Relevant to Health Maintenance Results * (ABNORMAL) HEMOGLOBIN, GLYCOSYLATED (09/26/2019 5:58 AM BUNDLES HANGER) HGB A1C 10.5(H) <5.7 % 09/26/2019 12:00 PM BUNDLES HANGER [facility] Comment: INCREASED RISK OF DIABETES <5.7% NON-DIABETES 5.7-6.4% INCREASED RISK FOR FUTURE DIABETES > OR = 6.5 CONSISTENT WITH DIABETES STANDARDS OF MEDICAL CARE IN DIABETES-2010 DIABETES CARE, 33(SUPP 1): S1-S61,2010 09/26/2019 5:58 AM BUNDLES HANGER Deisy Gregory PA-C LABORATORY Final Result [facility] [address] [place] [address], from Last 3 Months or Most Recently Relevant to Health Maintenance Insurance [employer] Advance Directives * Full Code (Latest Code Status on File) Date Activated Date Inactivated Comments 09/25/2019 12:09 PM 09/27/2019 12:08 PM Care Teams Assistant Golf Coach Relationship Specialty Start Date End Date Uyen Vieyra MD [address] [place] [address] [place] [address] PCP - General FAMILY PRACTICE 04/17/19
--- OUTSIDE RECORDS SUMMARY | 2025-05-14 15:55 | XMS_ITS | Encounter Summary ---
Author Organization [facility] Address [facility] [place] [address] Care Team Providers Care Stretching Press Operator Name Role Phone Uyen Vieyra MD Primary Care Provider [phone] Encounter Details Date Type Department Care Team (Late st Contact Info) Description 09/28/2019 Hospital Follow-up Call [facility] Med/Surg [address] [place] [address] Sujata Carr RN Social History [...] Assessment Author Status No 09/25/2019 1:24 PM AQUACULTURE FARM MANAGER Activ e * RETIRED Are you blind or do you have serious difficulty seeing, even when wearing glasses? Answer Date of Assessment Author Status No 09/25/2019 1:24 PM AQUACULTURE FARM MANAGER Activ e * Do you have serious [...] on filedocumented in this encounter Care Teams Stretching Press Operator Relationship Specialty Start Date End Date Uyen Vieyra MD [address] [place] [address] [place] [address] PCP - General FAMILY PRACTICE 04/17/19 documented as of this encounter
--- OUTSIDE RECORDS SUMMARY | 2025-05-14 15:55 | XMS_ITS | Clinical Summary ---
Author Organization [facility] Address [address] [place] [address] Care Team Providers Care Head Of It Name Role Phone Uyen Vieyra MD Primary Care Provider [phone] Source Comments [facility],non-owned Affiliates and Associated Physician Practices is amultiple site organization consisting of ambulatory clinics and hospital sitesin [place], [place], [place] and [place]. This disclosure is being madepursuant to the Care Everywhere program and may not contain all information available regarding this patient. Last updated 18.[facility] Allergies Active Allergy Reactions Criticality Noted Date [...] on file Legal Sex Male 12:09 PM LATHE WINDER Gender Identity Not on file Sexual Orientation [...] patient's age to complete this topic Insurance [facility] [place] [address] [facility] Advance Directives * Full Code (Latest Code Status on File) Date Activated Date Inactivated Comments 04/02/2023 8:00 PM To update the patient's code status, place a code status order. Do not modify or discontinue any currently active code status orders. Care Teams Head Of It Relationship Specialty Start Date End Date Uyen Vieyra MD [address] [place] [address] PCP - General 07/16/18
--- OUTSIDE RECORDS SUMMARY | 2025-05-14 15:55 | XMS_ITS | Encounter Summary ---
Author Organization [facility] Address [facility] [place] [address] Care Team Providers Care Mechanical Fitter Name Role Phone Uyen Vieyra MD Primary Care Provider [phone] Reason for Visit * Reason Onset Date Comments Follow Up Call 10/22/2019 Encounter Details Date Type Department Care Team (Late st Contact Info) Description 10/22/2019 Telephone [facility] Med/Surg [address] [place] [address] Qasim Meyers CNA Follow Up [...] Assessment Author Status No 09/25/2019 1:24 PM GEOLOGICAL SURVEY FIELD ASSISTANT Activ e * RETIRED Are you blind or do you have serious difficulty seeing, even when wearing glasses? Answer Date of Assessment Author Status No 09/25/2019 1:24 PM GEOLOGICAL SURVEY FIELD ASSISTANT Activ e * Do you have serious [...] on filedocumented in this encounter Care Teams Mechanical Fitter Relationship Specialty Start Date End Date Uyen Vieyra MD [address] [place] [address] [place] [address] PCP - General FAMILY PRACTICE 04/17/19 documented as of this encounter
[2025-05-14 16:06] LABS: Hematocrit 35.4 % (42.0-52.0); Hemoglobin 11.5 g/dL (14.0-18.0); Immature Granulocyte Percent A 0.7 % (0-0.5); Lymphocytes Absolute Auto 1.37 K/mm3 (0.9-3.2); Mean Corpuscular HGB Conc 32.5 g/dl (32-36); Mean Corpuscular Hemoglobin 26.1 pg (26-34); Mean Corpuscular Volume 80.3 fl (80-100); Nucleated Red Blood Cells Absolute Auto 0.000 K/mm3 (0.0-0.012); Nucleated Red Blood Cells Perc 0.0 % (0.0-0.2); Platelet Count Result 244 k/mm3 (150-375); Red Blood Count 4.41 M/mm3 (4.6-6.20); White Blood Count 11.6 K/mm3 (4.5-10.0)
--- NOTE | 2025-05-14 16:28 | ED.NAVMDI ---
HPI - Nausea/Vomiting/Diarrhea General Chief complaint: Nausea/Vomiting/Diarrhea <Ángela Stein PA-C - Last Filed: 05/14/25 21:34> Stated complaint: vomiting <Ángela Stein PA-C - Last Filed: 05/14/25 21:34> Time Seen by Provider: 05/14/25 15:41 <Ángela Stein PA-C - Last Filed: 05/14/25 21:34> History of Present Illness HPI Narrative: 44-year-old male with history of DM, chronic diabetic foot ulcers, hypertension, COPD, DVT on Xarelto, mitral valve replacement x2 presents to the emergency department for abdominal pain, nausea, vomiting and diarrhea for the past 2 days. He states he is having right-sided abdominal pain. States he is unable to keep down fluids or fluids due to vomiting. Patient is also reporting pain and swelling to his right lower extremity which is where he has a known DVT that was diagnosed after a hospitalization in November of 2023. He takes Xarelto which he is reportedly compliant with. He also has chronic ulcers to his right great toe and left 2nd toe. He follows with podiatry at [facility]. Patient states he had a fever of 101 yesterday. He notes he is taking care of his who was recently discharged from the hospital. <Ángela Stein PA-C - Last Filed: 05/14/25 21:34> Related Data Home medications: Home Medications ?Medication ?Instructions ?Recorded ?Confirmed ?Last Taken ?Type gabapentin 300 mg capsule 400 mg PO QID PRN Muscle Pain 04/27/20 05/14/25 05/13/25 21:00 History atorvastatin 80 mg tablet 40 mg PO DAILY 03/23/23 05/14/25 05/13/25 History sertraline 100 mg tablet 150 mg PO HS 03/23/23 05/14/25 05/13/25 21:00 History buspirone 15 mg tablet 15 mg PO DAILY PRN anxiey 09/18/23 05/14/25 Unknown History aspirin 81 mg chewable tablet 1 tablet PO DAILY 03/28/25 05/14/25 05/13/25 09:00 History carvedilol 25 mg tablet 25 mg PO Q12H 03/28/25 05/14/25 05/13/25 21:00 History ergocalciferol (vitamin D2) 1,250 1,250 mcg PO WEEKLY 03/28/25 05/14/25 05/08/25 History mcg (50,000 unit) capsule folic acid 1 mg tablet 1 mg PO DAILY 03/28/25 05/14/25 05/13/25 09:00 History hydralazine 25 mg tablet 25 mg PO DAILY 03/28/25 05/14/25 05/13/25 09:00 History losartan 50 mg tablet 50 mg PO DAILY 03/28/25 05/14/25 05/13/25 09:00 History oxycodone 5 mg tablet 5 mg PO Q6H PRN pain 03/28/25 05/14/25 05/13/25 09:00 History pantoprazole 40 mg tablet,delayed 40 mg PO Q12H 03/28/25 05/14/25 05/13/25 09:00 History release rivaroxaban 20 mg tablet (Xarelto) 20 mg PO QPM 03/28/25 05/14/25 05/13/25 21:00 History zolpidem 10 mg tablet 10 mg PO QHS 03/28/25 05/14/25 05/13/25 21:00 History ondansetron 4 mg disintegrating 4 mg translingual Q8H PRN nausea 05/14/25 05/14/25 05/13/25 09:18 History tablet and vomiting 4 mg tizanidine 2 mg tablet 2 mg PO Q6H PRN muscle spasticity 05/14/25 05/14/25 05/13/25 09:00 History 2 mg <Ángela Stein PA-C - Last Filed: 05/14/25 21:34> Allergies/Adverse reactions: Allergies Allergy/AdvReac Type Severity Reaction Status Date / Time tramadol AdvReac Hallucinati Verified 05/14/25 15:40 ng <Ángela Stein PA-C - Last Filed: 05/14/25 21:34> Review of Systems Review of Systems: All systems reviewed & are unremarkable except as noted in HPI and below <Ángela Stein PA-C - Last Filed: 05/14/25 21:34> [facility] Past Medical History Medical History: Medical History (Updated 05/14/25 @ 23:55 by Sidra Gould DO) Hepatic steatosis Esophagitis with gastritis Chronic kidney disease, stage 3b With baseline creatinine ranging between 1.45 and 1.6 Diabetic nephropathy Hyperlipidemia Mitral regurgitation Diabetic neuropathy DM2 (diabetes mellitus, type 2) Neuropathy HTN (hypertension) with goal to be determined Kidney stones COPD (chronic obstructive pulmonary disease) Depression with anxiety History of diabetes mellitus History of COPD History of hypertension <Ángela Stein PA-C - Last Filed: 05/14/25 21:34> Surgical History Surgical History: Surgical History Prosthetic mitral valve failure requiring replacement Patient had a metal mitral valve replacement place in 2022 and had 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 with secondary tissue valve replacement within 2 weeks of original procedure H/O tooth extraction History of lithotripsy History of cardiac catheterization 2013, no coronary artery disease with repeat heart catheterization 2022 with placement of 2 stents <Ángela Stein PA-C - Last Filed: 05/14/25 21:34> Family History Family History: Family History Mother Cerebrovascular accident Hypertension Depression Father Diabetes mellitus Heart disease Cancer before age 60 Acute myocardial infarction Grandparent Heart disease COPD (chronic obstructive pulmonary disease) Kidney disease <Ángela Stein PA-C - Last Filed: 05/14/25 21:34> Social History Social History: Social History Social History: The patient is and lives with his He has 3 children. 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 He used to smoke 2-3 packs of cigarettes per day but quit smoking in 2022 when he had his mitral valve replaced. He denies any alcohol. He uses marijuana. Code status: Full code Surrogate decision maker: Malia () Smoking packs per day: 2 Smoking cigarettes per day: 40.0 Years smoked: 30 Smoking pack-years: 60.00 Smoking status: Former smoker Tobacco type: cigarettes Second hand tobacco smoke exposure: No Alcohol intake: never Substance use: former Substance use type: does not use Last use: 1 month ago Do You Feel Safe in your Home?: Yes Lack of Transportation: No Lack of Food: Never True Current Housing: I Have Housing Concerned About Future Housing: No Difficulty Paying Gas/Electric Bills: No Difficulty Paying for Meds: No Currently Unemployed: No Education: Trade/Vocational Certificate Difficulty w/ Childcare or Family Care: No Gender identity (if verbalized by the patient): Male Spiritual care concerns: No <Ángela Stein PA-C - Last Filed: 05/14/25 21:34> Exam Narrative: GENERAL: Chronically ill-appearing, well-nourished, and in no acute distress. Appears older than stated age HEAD: Normocephalic, atraumatic. EYES: EOMI. ENT: Nares clear, no rhinorrhea or epistaxis. Mucous membranes dry NECK: Supple. CHEST: Clear to auscultation. No respiratory distress. HEART: Regular rate and rhythm. No murmur heard. Normal peripheral pulses. ABDOMEN: Normoactive bowel sounds. Abdomen soft with tenderness in the right upper quadrant. No rebound or rigidity. No CVA tenderness EXTREMITIES: Right great toe partially amputated. Chronic small ulcer to the distal phalanx of the right great toe and left second toe with scant amount of purulence, erythema or warmth. Right lower extremity with warmth, erythema and edema extending from the ankle circumferentially to the mid to proximal tib-fib, then extending medially and laterally of the thigh. Diffuse tenderness to the erythematous regions. No crepitus or vesicles. Bilateral DP pulses are 2+. SKIN: Warm, dry, no rash. NEURO: No focal deficits. Alert and oriented x3 <Ángela Stein PA-C - Last Filed: 05/14/25 21:34> Course BACK END ARCHITECT/PA Physician Supervision I agree with midlevel documentation; I performed the medical decision making component of this evaluation. <Samantha Pinto MD - Last Filed: 05/15/25 00:10> Vital Signs Vital signs: Vital Signs Temperature 97.6 F 05/14/25 14:57 Pulse Rate 92 05/14/25 14:57 Respiratory Rate 18 05/14/25 14:57 Blood Pressure 127/69 05/14/25 14:57 Pulse Oximetry 100 05/14/25 14:57 Temperature 97.7 F 05/14/25 22:40 Pulse Rate 72 05/14/25 22:40 Respiratory Rate 16 05/14/25 22:40 Blood Pressure 181/86 H 05/14/25 22:40 Pulse Oximetry 100 05/14/25 22:40 <Ángela Stein PA-C - Last Filed: 05/14/25 21:34> Vital Signs Temperature 97.6 F 05/14/25 14:57 Pulse Rate 92 05/14/25 14:57 Respiratory Rate 18 05/14/25 14:57 Blood Pressure 127/69 05/14/25 14:57 Pulse Oximetry 100 05/14/25 14:57 Temperature 97.7 F 05/14/25 22:40 Pulse Rate 72 05/14/25 22:40 Respiratory Rate 16 05/14/25 22:40 Blood Pressure 181/86 H 05/14/25 22:40 Pulse Oximetry 100 05/14/25 22:40 <Samantha Pinto MD - Last Filed: 05/15/25 00:10> MDM - Nausea/Vomiting/Diarrhea MDM Narrative Medical decision making narrative: 44-year-old male presents to the emergency department for nausea, vomiting, diarrhea with abdominal pain status for also reporting right lower extremity erythema edema the past 2 days. Patient is known DVT to this extremity since November 2023 and is reportedly compliant with his Xarelto. He also has chronic diabetic foot ulcers and follows with Podiatry at [facility]. Triage vitals are stable. Exam is significant for the above. Patient's lab work shows leukocytosis of 11.6. Chemistries with potassium of 3.1, bicarb of 15 with anion gap of 18, BUN of 22 consistent with dehydration. Fluids provided. AST is 77 and alk-phos is 196. ALT and bilirubin are within normal limits. Lipase is within normal limits. Lactic acid is normal 1.7. X-ray of the left foot shows findings concerning for progressing osteomyelitis involving the left 2nd distal phalanx. X-ray of the right foot shows findings concerning for osteomyelitis some of the distal aspect of the right 1st proximal phalanx. Chest x-ray without acute cardiopulmonary findings. UA shows 51-100 RBCs, no white blood cells or bacteria. CT abdomen pelvis shows IMPRESSION: Hepatosplenomegaly. Mild esophagitis/gastritis. Gallbladder hydrops, with mild intra and extrahepatic bile duct dilation. No significant gallbladder inflammatory change. No obstructing stone or mass detected. Consider MRCP. Chronic right pelviectasis and urothelial enhancement, may represent a degree of UPJ obstruction and/or pyelitis. Mild urinary bladder wall thickening may be secondary to incomplete distention or cystitis. Trace ascites. Bilateral inguinal lymphadenopathy Patient does have a history of gallbladder hydrops as noted on gallbladder ultrasound on 03/28/2025. No UTI on urinalysis but there is a large amount of hematuria. He is aware of the chronic right pelviectasis with urothelial enhancement. Patient was started on vancomycin and Zosyn to cover osteomyelitis of his toes in addition to cellulitis of the right lower extremity. He was given morphine and Zofran for symptomatic control with improvement, however is reporting increase in pain to his right leg again. Will provide another dose of morphine. Unfortunately we do not have ultrasound to evaluate for worsening DVT, however patient does admit complaints to [facility]. More likely suspect his presentation is due to cellulitis. Plan to admit for IV antibiotics. Discussed with hospitalist, Dr. Gould, who agrees to admission. Advises cefepime, Flagyl and vanc. Advises admission under inpatient status to [facility]. Also advises consult to General surgery regarding osteomyelitis and diabetic foot ulcers. Discussed with general surgeon, Dr. Lopez, who agrees to to the plan and plans to see the patient tomorrow. <Ángela Stein PA-C - Last Filed: 05/14/25 21:34> Lab Data Result diagrams: 05/14/25 15:59 05/14/25 15:59 <Ángela Stein PA-C - Last Filed: 05/14/25 21:34> Labs: Lab Results 05/14/25 05/14/25 05/14/25 Range/Units 15:59 16:49 18:18 WBC 11.6 H (4.5-10.0) K/mm3 RBC 4.41 L (4.6-6.20) M/mm3 Hgb 11.5 L D (14.0-18.0) g/dL Hct 35.4 L (42.0-52.0) % MCV 80.3 (80-100) fl MCH 26.1 (26-34) pg MCHC 32.5 (32-36) g/dl RDW 15.9 H (11.5-14.5) % Plt Count 244 (150-375) k/mm3 MPV 12.4 H (7.4-10.4) fl Immature Gran % (Auto) 0.7 H (0-0.5) % Neut % (Auto) 81.1 H (45.5-73.1) % Lymph % (Auto) 11.8 L (18.3-44.2) % [place] % (Auto) 6.1 (2.6-8.5) % Eos % (Auto) 0.1 (0-4.4) % Baso % (Auto) 0.2 (0.2-1.2) % Lymph # (Auto) 1.37 (0.9-3.2) K/mm3 [place] # (Auto) 0.7 H (0.1-0.6) K/mm3 Eos # (Auto) 0.0 (0-0.3) K/mm3 Baso # (Auto) 0.0 (0.0-0.1) K/mm3 Abs Immat Gran (auto) 0.08 H (0.00-0.031) K/mm3 Absolute Neuts (auto) 9.4 H (1.3-6.7) K/mm3 Absolute Nucleated RBC 0.000 (0.0-0.012) K/mm3 Nucleated RBC % 0.0 (0.0-0.2) % PT 22.8 H (11.1-14.7) Seconds INR 2.0 APTT 57.5 H (22.3-36.8) Seconds Sodium 133 L (137-145) mmol/L Potassium 3.1 L (3.4-5.0) mmol/L Chloride 100 (98-107) mmol/L Carbon Dioxide 15 L (22-30) mmol/L Anion Gap 18 H (4-12) mmol/L BUN 22 H D (9-20) mg/dL Creatinine 1.63 H (0.7-1.3) mg/dL Estim Creat Clear Calc 64 ml/min Estimated GFR 46 L (59 - ) Glucose 163 H (65-110) mg/dL Lactic Acid 1.7 (0.7-2.0) mmol/L Calcium 9.6 (8.4-10.2) mg/dL Magnesium 1.7 (1.6-2.3) mg/dL Total Bilirubin 0.7 (0.2-1.3) mg/dL AST 77 H (17-59) U/L ALT 32 (6-50) U/L Alkaline Phosphatase 196 H (38-126) U/L Total Protein 8.9 H (6.3-8.2) g/dL Albumin 4.2 (3.5-5.1) g/dL Lipase 23 (23-300) U/L Urine Color Yellow (Yellow) Urine Appearance Clear (Clear) Urine pH 6.0 (5.0-9.0) Ur Specific [place] 1.016 (1.001-1.035) Urine Protein 3+ H (Negative) mg/dL Urine Glucose (UA) 1+ H (Negative) mg/dL Urine Ketones Trace H (Negative) mg/dL Ur Blood (Man) 3+ H (Negative) Urine Nitrate Negative (Negative) Urine Bilirubin Negative (Negative) Urine Urobilinogen 0.2 (<2.0) mg/dL Leukocyte Esterase Rfl Negative (Negative) MARIA VICTORIA/UL Urine RBC 51-100 H (0-2) /hpf Urine WBC 0-5 (0-3) /hpf Ur Squamous Epith Cells None seen (Few) /hpf Urine Bacteria None seen /hpf Urine Casts 3-5 <Ángela Stein PA-C - Last Filed: 05/14/25 21:34> Lab Results 05/14/25 05/14/25 05/14/25 Range/Units 15:59 16:49 18:18 WBC 11.6 H (4.5-10.0) K/mm3 RBC 4.41 L (4.6-6.20) M/mm3 Hgb 11.5 L D (14.0-18.0) g/dL Hct 35.4 L (42.0-52.0) % MCV 80.3 (80-100) fl MCH 26.1 (26-34) pg MCHC 32.5 (32-36) g/dl RDW 15.9 H (11.5-14.5) % Plt Count 244 (150-375) k/mm3 MPV 12.4 H (7.4-10.4) fl Immature Gran % (Auto) 0.7 H (0-0.5) % Neut % (Auto) 81.1 H (45.5-73.1) % Lymph % (Auto) 11.8 L (18.3-44.2) % [place] % (Auto) 6.1 (2.6-8.5) % Eos % (Auto) 0.1 (0-4.4) % Baso % (Auto) 0.2 (0.2-1.2) % Lymph # (Auto) 1.37 (0.9-3.2) K/mm3 [place] # (Auto) 0.7 H (0.1-0.6) K/mm3 Eos # (Auto) 0.0 (0-0.3) K/mm3 Baso # (Auto) 0.0 (0.0-0.1) K/mm3 Abs Immat Gran (auto) 0.08 H (0.00-0.031) K/mm3 Absolute Neuts (auto) 9.4 H (1.3-6.7) K/mm3 Absolute Nucleated RBC 0.000 (0.0-0.012) K/mm3 Nucleated RBC % 0.0 (0.0-0.2) % PT 22.8 H (11.1-14.7) Seconds INR 2.0 APTT 57.5 H (22.3-36.8) Seconds Sodium 133 L (137-145) mmol/L Potassium 3.1 L (3.4-5.0) mmol/L Chloride 100 (98-107) mmol/L Carbon Dioxide 15 L (22-30) mmol/L Anion Gap 18 H (4-12) mmol/L BUN 22 H D (9-20) mg/dL Creatinine 1.63 H (0.7-1.3) mg/dL Estim Creat Clear Calc 64 ml/min Estimated GFR 46 L (59 - ) Glucose 163 H (65-110) mg/dL Lactic Acid 1.7 (0.7-2.0) mmol/L Calcium 9.6 (8.4-10.2) mg/dL Magnesium 1.7 (1.6-2.3) mg/dL Total Bilirubin 0.7 (0.2-1.3) mg/dL AST 77 H (17-59) U/L ALT 32 (6-50) U/L Alkaline Phosphatase 196 H (38-126) U/L Total Protein 8.9 H (6.3-8.2) g/dL Albumin 4.2 (3.5-5.1) g/dL Lipase 23 (23-300) U/L Urine Color Yellow (Yellow) Urine Appearance Clear (Clear) Urine pH 6.0 (5.0-9.0) Ur Specific [place] 1.016 (1.001-1.035) Urine Protein 3+ H (Negative) mg/dL Urine Glucose (UA) 1+ H (Negative) mg/dL Urine Ketones Trace H (Negative) mg/dL Ur Blood (Man) 3+ H (Negative) Urine Nitrate Negative (Negative) Urine Bilirubin Negative (Negative) Urine Urobilinogen 0.2 (<2.0) mg/dL Leukocyte Esterase Rfl Negative (Negative) MARIA VICTORIA/UL Urine RBC 51-100 H (0-2) /hpf Urine WBC 0-5 (0-3) /hpf Ur Squamous Epith Cells None seen (Few) /hpf Urine Bacteria None seen /hpf Urine Casts 3-5 <aSmantha Pinto MD - Last Filed: 05/15/25 00:10> Discharge Plan Discharge Clinical Impression: Gallbladder hydrops Nausea & vomiting Qualifiers: Vomiting type: unspecified Qualified Code(s): R11.2 - Nausea with vomiting, unspecified Cellulitis Qualifiers: Site of cellulitis: extremity Site of cellulitis of extremity: lower extremity Laterality: right Qualified Code(s): L03.115 - Cellulitis of right lower limb Acute osteomyelitis of toe Qualifiers: Laterality: right Qualified Code(s): M86.171 - Other acute osteomyelitis, right ankle and foot <Ángela Stein PA-C - Last Filed: 05/14/25 21:34> Patient Disposition: Still a Patient <Ángela Stein PA-C - Last Filed: 05/14/25 21:34> Condition: Stable <Ánglea Stein PA-C - Last Filed: 05/14/25 21:34>
[2025-05-14] MEDS: SODIUM CHLORIDE 0.9% IV 1,000 ML 999 ML IV CONT (16:48)
[2025-05-14] MEDS: ONDANSETRON INJ 4 MG/2 ML VIAL IV PUSH ×2 (16:48→20:36)
[2025-05-14] MEDS: MORPHINE SULFATE (*CRX) 4 MG/ML INJ IV PUSH ×2 (16:48→21:14)
[2025-05-14 17:11] LABS: Alanine Aminotransferase 32 U/L (6-50); Albumin Level 4.2 g/dL (3.5-5.1); Alkaline Phosphatase 196 U/L (38-126); Anion Gap 18 mmol/L (4-12); Aspartate Amino Transferase 77 U/L (17-59); Bilirubin,Total 0.7 mg/dL (0.2-1.3); Blood Urea Nitrogen 22 mg/dL (9-20); Calcium 9.6 mg/dL (8.4-10.2); Carbon Dioxide 15 mmol/L (22-30); Chloride 100 mmol/L (98-107); Estimated CRCL calculation 64 ml/min; Estimated Glomerular Filt Rate 46; Glucose 163 mg/dL (65-110); Lipase 23 U/L (23-300); Potassium 3.1 mmol/L (3.4-5.0); Sodium 133 mmol/L (137-145); Total Protein 8.9 g/dL (6.3-8.2)
[2025-05-14 17:37] LABS: Magnesium 1.7 mg/dL (1.6-2.3)
[2025-05-14 17:41] LABS: INR 2.0; Prothrombin Time 22.8 Seconds (11.1-14.7)
[2025-05-14 17:42] LABS: Partial Thromboplastin Time 57.5 Seconds (22.3-36.8)
--- NOTE | 2025-05-14 18:02 | PC.NURSE ---
Patient refused liquid potassium and requested pills. Provider aware.
[2025-05-14] MEDS: POTASSIUM CHLORIDE 20 MEQ ER TABLET 40 MEQ PO (18:32)
[2025-05-14 19:31] LABS: Add Urine Microscopic? YES; Appearance Urine Clear (Clear); Glucose Urine UA 1+ mg/dL (Negative); Leukocyte Esterase Ur Negative LEU/UL (Negative); Nitrate Urine Negative (Negative); Specific Grav Ur 1.016 (1.001-1.035)
--- NOTE | 2025-05-14 20:26 | PC.NURSE ---
adolfo patelia - zofran 4mg
[2025-05-14] MEDS: LACTATED RINGERS 1,000 ML 999 ML IV CONT (20:36)
[2025-05-14] MEDS: LACTATED RINGERS 1,000 ML 100 ML IV CONT (20:37)
--- NOTE | 2025-05-14 21:03 | ECG_ITS ---
Test Date: 2025-05-14 21:49:29 Measurements Intervals [place] Rate: 66 P: 38 IA: 173 QRS: 17 QRSD: 93 T: 24 QT: 486 QTc: 510 Interpretive Statements SINUS RHYTHM POSSIBLE INFERIOR MYOCARDIAL INFARCTION , PROBABLY OLD [30 ms Q WAVE IN II/aVF] Compared to ECG 03/27/2025 19:29:23 Myocardial infarct finding now present Ventricular premature complex(es) no longer present Electronically Signed On 05-15-2025 22:29:25 CDT by Rama Yeung M.D.
[2025-05-14] MEDS: metroNIDAZOLE 500 MG/ISO 100ML 500 MG/100 ML BAG 100 MG IVPB (21:15)
[2025-05-14] MEDS: CEFEPIME 2 GM/NS 50 ML 2 GM/50 ML BAG IVPB (21:15)
[2025-05-14 21:34] LABS: Procalcitonin 13.4 ng/mL
[2025-05-14] MEDS: VANCOMYCIN 1,250 MG/NS 250 ML 1,250 MG/250 ML BAG 166.67 MG IVPB ×2 (21:48→23:23)
--- NOTE | 2025-05-14 23:27 | PM.IMHP ---
H&P: HPI History of Present Illness Date/Time: 05/14/25 23:27 Chief Complaint: Nausea vomiting and loose stools for 3 days Narrative: 44-year-old male with a complex past medical history including, but not limited to, type 2 diabetes mellitus, essential hypertension, chronic pain, mechanical mitral valve replacement 2022 with subsequent dehiscence and endocarditis with tissue replacement 2 weeks later, recurrent right lower extremity cellulitis, bilateral diabetic foot wounds with chronic osteomyelitis who presented to the ER from home due to nausea and vomiting for 3 days. The patient reported that 3 days ago he started noticing swelling of his right lower extremity which usually for symptoms of his cellulitis. The lower extremity swelling started just prior to onset of his nausea and vomiting. That was also followed shortly thereafter by fever with a temperature of 101?. He has had emesis of everything that he has tried to eat over the last 3 days. His emesis consisted just food or water. About 12 hours after starting having vomiting he did develop some right upper lateral abdominal pain in the mid axillary region is worse with tenderness to palpation. He has been having recurrent cellulitis of the right lower extremity and chronic osteomyelitis of the right great toe and left 2nd toe for quite some time. He became acutely more concerned about cellulitis on day 2 of symptoms when his right leg became erythematous and increasingly tender to touch. He has also noted right inguinal pain with palpation. He is followed by Podiatry Dr. Smith who he saw last week. He is scheduled to have amputation of the left 2nd toe and probable amputation of the right great toe on June 05. He has follow-up appointment with his med aide on the of this month. He wanted to come into the hospital today before he got as ill as he was during his last admission in March. He did not come in sooner because his was just discharged from [facility] and is requiring TPN feeds which he and his children are managing. He knows that it would have been better to go to [facility] since that is where his med aide is but he wanted to be closer to home since his was recently discharged from the hospital. He had imaging in the ER which demonstrated worsening osteomyelitis of the foot compared to prior imaging in March but we do not have his comparison studies available from [facility]. His most recent imaging from [facility] only involved imaging of the left 2nd toe in not of the right great toe. He is hoping to be admitted here and treated with antibiotics to get him through until appointment on the when he can follow-up with his med aide. He is hoping to avoid any surgical procedures here. Patient's labs from outside facility were reviewed and is creatinine on the 05 of May was 1.59 with a serum bicarb of 19 and a normal potassium. His white count on the 26 of April was 6.8 with a hemoglobin of 9.1. Labs today demonstrated an elevated hemoglobin from baseline up to 11 and mild hypokalemia with potassium of 3.1 with serum bicarb decreased down to 15. His creatinine was minimally elevated from baseline up to 1.63. His UA was not suggestive of infection any denies urinary symptoms besides decreased urine output associated with dehydration. CT of the abdomen pelvis with contrast demonstrated hepatosplenomegaly esophagitis with gastritis, gallbladder hydrops with mild intra and extrahepatic biliary dilatation without gallbladder inflammation, chronic pelvic caliectasis and urethral enhancement may represent degree of UPJ obstruction or pylitis and mild urinary bladder wall thickening secondary to incomplete distension or cystitis trace ascites and bilateral inguinal lymphadenopathy He reports that his glucoses have been stable and had been ranging in the 140s to 160 range. Currently he reports he is still having right lateral upper quadrant pain worse with palpation that he thinks is due to muscle strain. He also reports moderate pain to his right calf worse with palpation. He denies any current nausea or vomiting. He states he feels better since receiving IV fluids. Patient is a good historian and confirms history as above. He reports that he has been compliant with his home Xarelto and has not missed any doses. Review of Systems Review of Systems: 12 systems were reviewed with pertinent positives and negatives per HPI. Except as documented in the HPI, all other systems were reviewed and are negative. The patient reports that prior to his heart valve replacement he used to weigh over 400 lb. He is now down to 250 lb in his weight is been stable. [facility] Past Medical History Medical History (Updated 05/15/25 @ 01:05 by Sidra Gould DO) Psoriasis Eczema Hepatic steatosis Esophagitis with gastritis Chronic kidney disease, stage 3b With baseline creatinine ranging between 1.45 and 1.6 Diabetic nephropathy Hyperlipidemia Mitral regurgitation Diabetic neuropathy DM2 (diabetes mellitus, type 2) Now diet controlled due to 200 lb weight loss previously was insulin-dependent HTN (hypertension) with goal to be determined Kidney stones COPD (chronic obstructive pulmonary disease) Depression with anxiety History of COPD History of hypertension Surgical History Surgical History (Updated 05/15/25 @ 00:57 by Sidra Gould DO) History of amputation of right great toe Partial amputation of right great toe 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 Patient had a metal mitral valve replacement place in 2022 and had 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 with secondary tissue valve replacement within 2 weeks of original procedure H/O tooth extraction History of lithotripsy (~2019) Right kidney History of cardiac catheterization 2013, no coronary artery disease with repeat heart catheterization 2022 with placement of 2 stents Family History Family History Mother Cerebrovascular accident Hypertension Depression Father Diabetes mellitus Heart disease Cancer before age 60 Acute myocardial infarction Grandparent Heart disease COPD (chronic obstructive pulmonary disease) Kidney disease Social History Social History (Updated 05/15/25 @ 00:51 by Sidra Gould DO) Social History: The patient is and lives with his He has 3 children. 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 He used to smoke 2-3 packs of cigarettes per day but quit smoking in 2022 when he had his mitral valve replaced. He denies any alcohol. He uses marijuana. Code status: Full code Surrogate decision maker: Malia () Smoking packs per day: 2 Smoking cigarettes per day: 40.0 Years smoked: 30 Smoking pack-years: 60.00 Smoking status: Former smoker Tobacco type: cigarettes Second hand tobacco smoke exposure: No Alcohol intake: never Substance use: former Substance use type: does not use Last use: 1 month ago Do You Feel Safe in your Home?: Yes Lack of Transportation: No Lack of Food: Never True Current Housing: I Have Housing Concerned About Future Housing: No Difficulty Paying Gas/Electric Bills: No Difficulty Paying for Meds: No Currently Unemployed: No Education: Trade/Vocational Certificate Difficulty w/ Childcare or Family Care: No Gender identity (if verbalized by the patient): Male Spiritual care concerns: No Meds Home Medications and Allergies Home Medications ?Medication ?Instructions ?Recorded ?Confirmed ?Type gabapentin 300 mg capsule 400 mg PO QID PRN Muscle Pain 04/27/20 05/14/25 History atorvastatin 80 mg tablet 40 mg PO DAILY 03/23/23 05/14/25 History sertraline 100 mg tablet 150 mg PO HS 03/23/23 05/14/25 History buspirone 15 mg tablet 15 mg PO DAILY PRN anxiey 09/18/23 05/14/25 History aspirin 81 mg chewable tablet 1 tablet PO DAILY 03/28/25 05/14/25 History carvedilol 25 mg tablet 25 mg PO Q12H 03/28/25 05/14/25 History ergocalciferol (vitamin D2) 1,250 1,250 mcg PO WEEKLY 03/28/25 05/14/25 History mcg (50,000 unit) capsule folic acid 1 mg tablet 1 mg PO DAILY 03/28/25 05/14/25 History hydralazine 25 mg tablet 25 mg PO DAILY 03/28/25 05/14/25 History losartan 50 mg tablet 50 mg PO DAILY 03/28/25 05/14/25 History oxycodone 5 mg tablet 5 mg PO Q6H PRN pain 03/28/25 05/14/25 History pantoprazole 40 mg tablet,delayed 40 mg PO Q12H 03/28/25 05/14/25 History release rivaroxaban 20 mg tablet (Xarelto) 20 mg PO QPM 03/28/25 05/14/25 History zolpidem 10 mg tablet 10 mg PO QHS 03/28/25 05/14/25 History ondansetron 4 mg disintegrating 4 mg translingual Q8H PRN nausea 05/14/25 05/14/25 History tablet and vomiting tizanidine 2 mg tablet 2 mg PO Q6H PRN muscle spasticity 05/14/25 05/14/25 History Allergies Allergy/AdvReac Type Severity Reaction Status Date / Time tramadol AdvReac Hallucinati Verified 05/14/25 15:40 ng Vital Signs Vital Signs - 24 hr 05/14/25 14:57 05/14/25 15:55 05/14/25 18:33 Temperature 97.6 F Pulse Rate 92 84 76 Respiratory Rate 18 18 17 Blood Pressure 127/69 154/90 H 161/89 H Pulse Oximetry 100 100 100 05/14/25 20:56 05/14/25 21:00 05/14/25 21:15 Temperature Pulse Rate Respiratory Rate Blood Pressure Pulse Oximetry 100 100 100 05/14/25 21:45 07/06/25 21:45 05/14/25 22:40 Temperature 97.7 F 98.1 F 97.7 F Pulse Rate 67 67 72 Respiratory Rate 14 16 16 Blood Pressure 151/85 H 151/85 H 181/86 H Pulse Oximetry 100 100 100 Exam Narrative: Weight 98.2 kg BMI 29.4 Const: Other: No acute distress, well-developed well-nourished, height weight proportionate, appears stated age HENMT: Other: Mucous membranes are tacky, no oral pharyngeal erythema Eyes: Other: Positive conjunctival pallor, no scleral icterus Neck: Other: No JVD, no lymphadenopathy Resp: Other: Clear to auscultation bilaterally, no increased work of breathing Cardio: Other: Regular rate, regular rhythm, 2+ bilateral radial and pedal pulses, no JVD GI: Other: Soft, nondistended, normoactive bowel sounds, negative Lezama sign but patient does have point tenderness below the ribcage at the right mid axillary line extending posteriorly that is reproducible to palpation : Other: Right inguinal lymphadenopathy Skin: Other: Patient has a chronic skin changes noted to the right lower extremity however new erythema is noted with increased warmth compared to the rest of the extremity erythema is near circumferential in extending from the ankle up through the mid calf and oro, he has chronic appearing wounds to the tip of the right great toe and tip of the left 2nd toe with associated swelling and erythema of the right 2nd toe Neuro: Other: Alert oriented x4, speech is clear, no facial asymmetry, no localizing neurologic deficits noted during the course of conversation Extrem: Other: Wound to the right great toe with chronic changes of the right great toe consistent with prior partial great toe amputation, chronic appearing wound to the 2nd toe of the left foot with associated erythema and edema, no drainage or purulence, 1+ edema to the right lower extremities with associated erythema as discussed above Psych: Other: Appropriate mood and affect, pleasant and cooperative, judgment and insight intact H&P: Results Labs Labs: Laboratory Tests 05/14/25 15:59 05/14/25 15:59 05/14/25 05/14/25 05/14/25 15:59 16:49 18:18 WBC 11.6 H RBC 4.41 L Hgb 11.5 L D Hct 35.4 L MCV 80.3 MCH 26.1 MCHC 32.5 RDW 15.9 H Plt Count 244 MPV 12.4 H Immature Gran % (Auto) 0.7 H Neut % (Auto) 81.1 H Lymph % (Auto) 11.8 L Chambers % (Auto) 6.1 Eos % (Auto) 0.1 Baso % (Auto) 0.2 Lymph # (Auto) 1.37 Chambers # (Auto) 0.7 H Eos # (Auto) 0.0 Baso # (Auto) 0.0 Abs Immat Gran (auto) 0.08 H Absolute Neuts (auto) 9.4 H Absolute Nucleated RBC 0.000 Nucleated RBC % 0.0 PT 22.8 H INR 2.0 APTT 57.5 H Sodium 133 L Potassium 3.1 L Chloride 100 Carbon Dioxide 15 L Anion Gap 18 H BUN 22 H D Creatinine 1.63 H Estim Creat Clear Calc 64 Estimated GFR 46 L Glucose 163 H Lactic Acid 1.7 Calcium 9.6 Magnesium 1.7 Total Bilirubin 0.7 AST 77 H ALT 32 Alkaline Phosphatase 196 H Total Protein 8.9 H Albumin 4.2 Lipase 23 Procalcitonin Urine Color Yellow Urine Appearance Clear Urine pH 6.0 Ur Specific [place] 1.016 Urine Protein 3+ H Urine Glucose (UA) 1+ H Urine Ketones Trace H Ur Blood (Man) 3+ H Urine Nitrate Negative Urine Bilirubin Negative Urine Urobilinogen 0.2 Leukocyte Esterase Rfl Negative Urine RBC 51-100 H Urine WBC 0-5 Ur Squamous Epith Cells None seen Urine Bacteria None seen Urine Casts 3-5 05/14/25 20:45 WBC RBC Hgb Hct MCV MCH MCHC RDW Plt Count MPV Immature Gran % (Auto) Neut % (Auto) Lymph % (Auto) Chambers % (Auto) Eos % (Auto) Baso % (Auto) Lymph # (Auto) Chambers # (Auto) Eos # (Auto) Baso # (Auto) Abs Immat Gran (auto) Absolute Neuts (auto) Absolute Nucleated RBC Nucleated RBC % PT INR APTT Sodium Potassium Chloride Carbon Dioxide Anion Gap BUN Creatinine Estim Creat Clear Calc Estimated GFR Glucose Lactic Acid Calcium Magnesium Total Bilirubin AST ALT Alkaline Phosphatase Total Protein Albumin Lipase Procalcitonin 13.4 Urine Color Urine Appearance Urine pH Ur Specific [place] Urine Protein Urine Glucose (UA) Urine Ketones Ur Blood (Man) Urine Nitrate Urine Bilirubin Urine Urobilinogen Leukocyte Esterase Rfl Urine RBC Urine WBC Ur Squamous Epith Cells Urine Bacteria Urine Casts Impressions Foot X-Ray 05/14/25 17:29 IMPRESSION: Findings concerning for osteomyelitis involving the distal aspect of the right first proximal phalanx. Foot X-Ray 05/14/25 17:33 IMPRESSION: Findings concerning for progressive osteomyelitis involving the left second distal phalanx. Abdomen/Pelvis CT 05/14/25 18:13 IMPRESSION: Hepatosplenomegaly. Mild esophagitis/gastritis. Gallbladder hydrops, with mild intra and extrahepatic bile duct dilation. No significant gallbladder inflammatory change. No obstructing stone or mass detected. Consider MRCP. Chronic right pelviectasis and urothelial enhancement, may represent a degree of UPJ obstruction and/or pyelitis. Mild urinary bladder wall thickening may be secondary to incomplete distention or cystitis. Trace ascites. Bilateral inguinal lymphadenopathy Chest X-Ray 05/14/25 19:25 IMPRESSION: No acute cardiopulmonary process. EKG: Normal sinus rhythm rate 66 possible inferior NC probably old QTC 510 All imaging and EKGs personally reviewed and interpreted. And unless stated otherwise agree with radiologic and cardiology interpretation. Assessment and Plan Assessment and plan (1) Cellulitis: Qualifiers: Laterality: right Site of cellulitis: extremity Site of cellulitis of extremity: lower extremity Qualified Code(s): L03.115 - Cellulitis of right lower limb Code(s): L03.90 - Cellulitis, unspecified Status: Acute (2) Chronic osteomyelitis of toe of right foot: Code(s): M86.671 - Other chronic osteomyelitis, right ankle and foot Status: Acute (3) Chronic osteomyelitis of toe of left foot: Code(s): M86.672 - Other chronic osteomyelitis, left ankle and foot Status: Acute (4) Nausea & vomiting: Qualifiers: Vomiting type: unspecified Qualified Code(s): R11.2 - Nausea with vomiting, unspecified Code(s): R11.2 - Nausea with vomiting, unspecified Status: Acute (5) Acute dehydration: Code(s): E86.0 - Dehydration Status: Acute (6) Esophagitis with gastritis: Code(s): K29.70 - Gastritis, unspecified, without bleeding; K20.90 - Esophagitis, unspecified without bleeding Status: Acute (7) Gallbladder hydrops: Code(s): K82.1 - Hydrops of gallbladder Status: Acute (8) Abnormal urinalysis: Code(s): R82.90 - Unspecified abnormal findings in urine Status: Acute (9) Chronic kidney disease, stage 3b: Code(s): N18.32 - Chronic kidney disease, stage 3b Status: Acute (10) Acute hypokalemia: Code(s): E87.6 - Hypokalemia Status: Acute Plan Patient has recurrent cellulitis of the right lower extremity likely secondary to seeding from the patient's chronic diabetic foot wound of the right great toe with associated osteomyelitis. Blood cultures have been obtained and are pending. He has been started on empiric antibiotic therapy with cefepime Flagyl and vancomycin per antibiotics tortured guidelines. General surgery was consulted from the ER but the patient prefers to have follow-up regarding his osteomyelitis of his foot which is med aide at [facility]. Subsequently General surgery consult was canceled. He would like treatment with antibiotics and potential discharge home to follow up on the as he already has scheduled. He is aware that if his condition changes or worsens he may need transfer sooner. Will repeat CBC in a.m.. Patient does have acute on chronic kidney injury with evidence of dehydration with relative hemoconcentration due to nausea vomiting resulting in volume depletion. Will avoid nephrotoxic medications. Will monitor strict I&O's. Patient does have some mild hypokalemia he received 40 mEq potassium chloride in the ER. Will repeat electrolyte panel in a.m. including magnesium level. Patient does have chronically low serum bicarb. Will and add sodium bicarbonate tablets 650 mg p.o. b.i.d.. The patient was having nausea vomiting nausea vomiting likely secondary to cellulitis and other ongoing infections. His gallbladder was enlarged on imaging but he does not have any significant transaminitis or hyperbilirubinemia. His abdominal pain started the day after he was already vomiting from his other symptoms. His right upper quadrant pain is more in the right mid axillary line in flank area. CT suggest possible pyelitis but the patient denies other urinary symptoms such as dysuria, urinary frequency or hematuria. Highlight is also less likely. I suspect more of a musculoskeletal strain due to vomiting. Patient reports significant improvement in symptoms. Will provide Zofran as needed and repeat CMP in a.m.. Will continue home Protonix p.o. b.i.d.. Will provide Zofran as needed for nausea. Patient's urinalysis was abnormal but not overtly suggestive of UTI. CT does demonstrate possible right pyelitis but patient does not have any bacteria leukocyte esterase or nitrates in his urine to suggest acute infection. Patient is already on broad-spectrum antibiotic coverage for diabetic cellulitis/osteomyelitis. 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 Will obtain right lower extremity venous Doppler rule out DVT. However DVT seems less likely given patient's compliance with anticoagulants. Will resume home Xarelto. Patient has been admitted as observation status. MEDICAL DECISION MAKING NARRATIVE -Spoke with the ED provider in detail regarding patient's evaluation, workup and management -Patient seen and examined at bedside -Collaborated with patient's nurse at the bedside in detail and addressed all concerns -Labs, electrolytes, radiology, investigations and test results reviewed -ED/Consult/Nursing/Ancilliary notes on the chart reviewed and appreciated -Spoke with patient/family at the bedside and answered all questions. Patient is agreeable with plan. Quality VTE Prophylaxis VTE prophylaxis: pharmacologic ordered (Continue home Xarelto) Hospitalist [facility] Advance Care Plan I have confirmed that the patient's Advanced Care Plan is present, code status is documented, or surrogate decision maker is listed in patient medical record.: Yes Medication Reconciliation I have utilized all available resources to obtain, update and review the patients current medications (includes all prescriptions, OTC, herbals, cannabis, and nutritional supplements).: Yes
[2025-05-15] VITALS (8 sets, daily range): BP systolic 130–132; BP diastolic 66–70; PULSE 54–78; RESP 12–16; TEMP 36.2–36.8; O2SAT 100
[2025-05-15] MEDS: PANTOPRAZOLE 40 MG TABLET PO ×3 (00:28→21:19)
[2025-05-15] MEDS: SERTRALINE HCL 50 MG TABLET 150 MG PO ×2 (00:28→21:19)
[2025-05-15] MEDS: ZOLPIDEM TARTRATE (*CRX) 5 MG TABLET 10 MG PO ×2 (00:28→21:19)
[2025-05-15] MEDS: RIVAROXABAN 20 MG TABLET PO ×2 (00:28→19:02)
[2025-05-15] MEDS: ONDANSETRON INJ 4 MG/2 ML VIAL IV PUSH ×3 (00:29→15:50)
[2025-05-15] MEDS: MORPHINE SULFATE (*CRX) 4 MG/ML INJ IV PUSH ×4 (00:29→21:30)
[2025-05-15 04:48] LABS: Toxigenic C. Diff NEGATIVE (NEGATIVE)
[2025-05-15] MEDS: LOPERAMIDE HCL 2 MG CAPSULE PO ×3 (05:41→22:17)
[2025-05-15] MEDS: oxyCODONE HCL (*CRX) 5 MG TAB IR PO ×2 (05:41→15:50)
[2025-05-15] MEDS: metroNIDAZOLE 500 MG/ISO 100ML 500 MG/100 ML BAG 100 MG IVPB ×3 (05:42→21:21)
[2025-05-15] MEDS: LACTATED RINGERS 1,000 ML 100 ML IV CONT ×2 (05:43→21:20)
[2025-05-15 06:10] LABS: Hematocrit 30.4 % (42.0-52.0); Hemoglobin 9.5 g/dL (14.0-18.0); Immature Granulocyte Percent A 0.3 % (0-0.5); Lymphocytes Absolute Auto 1.11 K/mm3 (0.9-3.2); Mean Corpuscular HGB Conc 31.3 g/dl (32-36); Mean Corpuscular Hemoglobin 26.0 pg (26-34); Mean Corpuscular Volume 83.3 fl (80-100); Nucleated Red Blood Cells Absolute Auto 0.000 K/mm3 (0.0-0.012); Nucleated Red Blood Cells Perc 0.0 % (0.0-0.2); Platelet Count Result 164 k/mm3 (150-375); Red Blood Count 3.65 M/mm3 (4.6-6.20); White Blood Count 7.1 K/mm3 (4.5-10.0)
[2025-05-15 06:21] LABS: Magnesium 1.7 mg/dL (1.6-2.3)
[2025-05-15 06:23] LABS: Alanine Aminotransferase 25 U/L (6-50); Albumin Level 3.5 g/dL (3.5-5.1); Alkaline Phosphatase 137 U/L (38-126); Anion Gap 10 mmol/L (4-12); Aspartate Amino Transferase 65 U/L (17-59); Bilirubin,Total 0.4 mg/dL (0.2-1.3); Blood Urea Nitrogen 21 mg/dL (9-20); Calcium 8.9 mg/dL (8.4-10.2); Carbon Dioxide 20 mmol/L (22-30); Chloride 104 mmol/L (98-107); Estimated CRCL calculation 57 ml/min; Estimated CRCL calculation 63 ml/min; Estimated Glomerular Filt Rate 46; Estimated Glomerular Filt Rate 52; Glucose 110 mg/dL (65-110); Potassium 2.9 mmol/L (3.4-5.0); Sodium 134 mmol/L (137-145); Total Protein 7.5 g/dL (6.3-8.2)
[2025-05-15] MEDS: GABAPENTIN 400 MG CAPSULE PO (09:18)
[2025-05-15] MEDS: POTASSIUM CHLORIDE 20 MEQ ER TABLET 40 MEQ PO ×3 (09:18→19:02)
[2025-05-15] MEDS: SODIUM BICARBONATE TAB 650 MG TABLET PO ×2 (09:21→19:02)
[2025-05-15] MEDS: FOLIC ACID 1 MG TABLET PO (09:21)
[2025-05-15] MEDS: ASPIRIN 81 MG CHEWABLE TABLET PO (09:21)
[2025-05-15] MEDS: ATORVASTATIN 40 MG TABLET PO (09:21)
[2025-05-15] MEDS: ERGOCALCIFEROL (VITAMIN D2) 1,250 MCG (50,000 UNITS) CAPSULE 1250 MCG PO (09:21)
[2025-05-15] MEDS: LOSARTAN POTASSIUM 50 MG TABLET PO (09:21)
--- NOTE | 2025-05-15 10:05 | P.CONGS_ITS ---
History of Present Illness Consult details Consult date: 05/15/25 Reason for consult: other (Osteomyelitis, foot ulcers) Requesting physician: Jessica Nieto APRN Narrative: Patient seen before it was noted that the Hospitalist cancelled our consult. The patient has chronic osteomyelitis of the right great toe and left second toe with chronic bilateral foot wounds that are followed by Podiatry at [place]. The wounds are stable and he is scheduled for close follow-up next week with the [facility] and is scheduled to have a right great toe amputation and left 2nd toe amputation on June 05. Patient would prefer to follow-up with Podiatry at [place], and therefore our consult was cancelled. Management of his nausea and vomiting per Hospitalist. Discussed all of this with Dr. Lopez and will cancel consult note at this time. Review of Systems 2 Review of Systems: All systems reviewed & are unremarkable except as noted in HPI and below PMFSH Past Medical History Medical History (Updated 05/15/25 @ 11:13 by VICK Watts) Psoriasis Eczema Hepatic steatosis Esophagitis with gastritis Chronic kidney disease, stage 3b With baseline creatinine ranging between 1.45 and 1.6 Diabetic nephropathy Hyperlipidemia Mitral regurgitation Diabetic neuropathy DM2 (diabetes mellitus, type 2) Now diet controlled due to 200 lb weight loss previously was insulin- dependent HTN (hypertension) with goal to be determined Kidney stones COPD (chronic obstructive pulmonary disease) Depression with anxiety History of COPD History of hypertension Surgical History Surgical History History of amputation of right great toe Partial amputation of right great toe 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 Patient had a metal mitral valve replacement place in 2022 and had 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 with secondary tissue valve replacement within 2 weeks of original procedure H/O tooth extraction History of lithotripsy (~2019) Right kidney History of cardiac catheterization 2013, no coronary artery disease with repeat heart catheterization 2022 with placement of 2 stents Family History Family History Mother Cerebrovascular accident Hypertension Depression Father Diabetes mellitus Heart disease Cancer before age 60 Acute myocardial infarction Grandparent Heart disease COPD (chronic obstructive pulmonary disease) Kidney disease Social History Social History (Reviewed 05/15/25 @ 11:00 by DREW Watts Social History: The patient is and lives with his He has 3 children. 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 He used to smoke 2-3 packs of cigarettes per day but quit smoking in 2022 when he had his mitral valve replaced. He denies any alcohol. He uses marijuana. Code status: Full code Surrogate decision maker: Malia () Smoking packs per day: 2 Smoking cigarettes per day: 40.0 Years smoked: 30 Smoking pack-years: 60.00 Smoking status: Former smoker Tobacco type: cigarettes Second hand tobacco smoke exposure: No Alcohol intake: never Substance use: former Substance use type: does not use Last use: 1 month ago Do You Feel Safe in your Home?: Yes Lack of Transportation: No Lack of Food: Never True Current Housing: I Have Housing Concerned About Future Housing: No Difficulty Paying Gas/Electric Bills: No Difficulty Paying for Meds: No Currently Unemployed: No Education: Trade/Vocational Certificate Difficulty w/ Childcare or Family Care: No Gender identity (if verbalized by the patient): Male Spiritual care concerns: No Meds Home Medications and Allergies Home Medications ?Medication ?Instructions ?Recorded ?Confirmed ?Type gabapentin 300 mg capsule 400 mg PO QID PRN Muscle Pain 04/27/20 05/14/25 History atorvastatin 80 mg tablet 40 mg PO DAILY 03/23/23 05/14/25 History sertraline 100 mg tablet 150 mg PO HS 03/23/23 05/14/25 History buspirone 15 mg tablet 15 mg PO DAILY PRN anxiey 09/18/23 05/14/25 History aspirin 81 mg chewable tablet 1 tablet PO DAILY 03/28/25 05/14/25 History carvedilol 25 mg tablet 25 mg PO Q12H 03/28/25 05/14/25 History ergocalciferol (vitamin D2) 1,250 1,250 mcg PO WEEKLY 03/28/25 05/14/25 History mcg (50,000 unit) capsule folic acid 1 mg tablet 1 mg PO DAILY 03/28/25 05/14/25 History hydralazine 25 mg tablet 25 mg PO DAILY 03/28/25 05/14/25 History losartan 50 mg tablet 50 mg PO DAILY 03/28/25 05/14/25 History oxycodone 5 mg tablet 5 mg PO Q6H PRN pain 03/28/25 05/14/25 History pantoprazole 40 mg tablet,delayed 40 mg PO Q12H 03/28/25 05/14/25 History release rivaroxaban 20 mg tablet (Xarelto) 20 mg PO QPM 03/28/25 05/14/25 History zolpidem 10 mg tablet 10 mg PO QHS 03/28/25 05/14/25 History ondansetron 4 mg disintegrating 4 mg translingual Q8H PRN nausea 05/14/25 05/14/25 History tablet and vomiting tizanidine 2 mg tablet 2 mg PO Q6H PRN muscle spasticity 05/14/25 05/14/25 History Allergies Allergy/AdvReac Type Severity Reaction Status Date / Time tramadol AdvReac Hallucinati Verified 05/14/25 15:40 ng Vital Signs Vital Signs - 24 hr 05/14/25 14:57 05/14/25 15:55 05/14/25 18:33 Temperature 97.6 F Pulse Rate 92 84 76 Respiratory Rate 18 18 17 Blood Pressure 127/69 154/90 H 161/89 H Pulse Oximetry 100 100 100 Oxygen Delivery 05/14/25 20:56 05/14/25 21:00 05/14/25 21:15 Temperature Pulse Rate Respiratory Rate Blood Pressure Pulse Oximetry 100 100 100 Oxygen Delivery 05/14/25 21:45 05/14/25 21:45 05/14/25 22:40 Temperature 97.7 F 98.1 F 97.7 F Pulse Rate 67 67 72 Respiratory Rate 14 16 16 Blood Pressure 151/85 H 151/85 H 181/86 H Pulse Oximetry 100 100 100 Oxygen Delivery 05/15/25 00:00 05/15/25 02:46 05/15/25 04:00 Temperature Pulse Rate 75 78 Respiratory Rate Blood Pressure Pulse Oximetry Oxygen Delivery Room Air 05/15/25 06:00 Temperature 97.9 F Pulse Rate 76 Respiratory Rate 16 Blood Pressure 132/66 Pulse Oximetry 100 Oxygen Delivery Exam 2 Const: General: comfortable and no acute distress Nutritional Appearance: a verage body habitus Orientation/consciousness: patient oriented x3 HENMT: Head: normocephalic and atraumatic Ears: hearing grossly normal bilaterally Mouth: Yes moist mucous membranes Eyes: General: appearance normal, both eyes and all related structures P upils: Equal, round and reactive pupils present Neck: Neck: normal visual inspection and full ROM Resp: Effort & Inspection: no respiratory distress Auscultation: clear to auscultation bilaterally Cardio: Rate: regular rate Rhythm: regular rhythm Peripheral pulses: P eripheral pulses 2+ throughout GI: Inspection: non-distended GI Palp: Yes Soft to palpation, Yes Tenderness to palpation present (GI) (RUQ), Yes Guarding due to palpation present (GI) (RUQ), Yes Hepatomegaly present and Yes Rebound tenderness present Auscultation: normal bowel sounds Rectal Exam: deferred Skin: General skin exam: normal color Neuro: General: moves all extremities and no focal motor deficits Speech: n ormal speech Motor exam (neuro): 5/5 motor strength present throughout Extrem: Other: Right lower leg 2+ swelling with very mild yin discoloration of the lower leg with possibly some mild diffuse erythema and dry skin circumferentially. His right calf is very tender to palpation. Right foot is warm with good capillary refill, DP and PT pulses are strong/palpable. He is able to wiggle all his toes. No sensation of the distal foot and toes. He has a partial great toe amputation that is healed, with a small 1 x 1 cm circular open wound to the plantar aspect over the distal aspect of the proximal phalanx. The wound bed is pink with no purulent drainage or necrotic tissue. The surrounding skin appears healthy with no erythema or swelling of the great toe. Other toes appear healthy without any swelling, erythema, or wounds. Left lower leg with trace edema, nonpitting, and mild yin discoloration of the skin of the lower leg. No calf tenderness or erythema. The left foot is warm with strong palpable DP and PT pulses. There is mild diffuse swelling of the left foot in comparison to the right but no erythema or tenderness of the foot. There is a linear open wound at the crease of the left great toe on the plantar aspect at the skin fold where it looks like the skin has cracked and . The wound bed shallow with pink, healthy-appearing tissue. No purulent drainage or necrotic tissue. The left great toe has no erythema or swelling. The left 2nd toe has diffuse swelling and mild erythema at the tip, it is nontender, and there is a small 0.5 x 0.5 cm open wound on the plantar aspect of the distal tip of the 2nd toe with a pink wound bed, no purulent drainage, no necrotic tissue, no odor. The remaining toes appear viable with no erythema, no swelling, and no wounds. Psych: Mental Status: mental status grossly normal Attitude: cooperative Insight: Good insight present (Psych) Judgement: Good judgement present (Psych) Results Labs 05/15/25 05:20 05/15/25 05:20 Labs: Abnormal lab results 05/14/25 05/14/25 05/14/25 Range/Units 15:59 16:49 18:18 WBC 11.6 H (4.5-10.0) K/mm3 RBC 4.41 L (4.6-6.20) M/mm3 Hgb 11.5 L D (14.0-18.0) g/dL Hct 35.4 L (42.0-52.0) % MCHC (32-36) g/dl RDW 15.9 H (11.5-14.5) % MPV 12.4 H (7.4-10.4) fl Immature Gran % (Auto) 0.7 H (0-0.5) % Neut % (Auto) 81.1 H (45.5-73.1) % Lymph % (Auto) 11.8 L (18.3-44.2) % Pettis % (Auto) (2.6-8.5) % Pettis # (Auto) 0.7 H (0.1-0.6) K/mm3 Abs Immat Gran (auto) 0.08 H (0.00-0.031) K/mm3 Absolute Neuts (auto) 9.4 H (1.3-6.7) K/mm3 PT 22.8 H (11.1-14.7) Seconds APTT 57.5 H (22.3-36.8) Seconds Sodium 133 L (137-145) mmol/L Potassium 3.1 L (3.4-5.0) mmol/L Carbon Dioxide 15 L (22-30) mmol/L Anion Gap 18 H (4-12) mmol/L BUN 22 H D (9-20) mg/dL Creatinine 1.63 H (0.7-1.3) mg/dL Estimated GFR 46 L (59 - ) Glucose 163 H (65-110) mg/dL POC Capillary Glucose (65-105) mg/dl AST 77 H (17-59) U/L Alkaline Phosphatase 196 H (38-126) U/L Total Protein 8.9 H (6.3-8.2) g/dL Urine Protein 3+ H (Negative) mg/dL Urine Glucose (UA) 1+ H (Negative) mg/dL Urine Ketones Trace H (Negative) mg/dL Ur Blood (Man) 3+ H (Negative) Urine RBC 51-100 H (0-2) /hpf 05/15/25 05/15/25 05/15/25 Range/Units 05:20 05:20 05:20 WBC (4.5-10.0) K/mm3 RBC 3.65 L (4.6-6.20) M/mm3 Hgb 9.5 L (14.0-18.0) g/dL Hct 30.4 L (42.0-52.0) % MCHC 31.3 L (32-36) g/dl RDW 16.0 H (11.5-14.5) % MPV 12.2 H (7.4-10.4) fl Immature Gran % (Auto) (0-0.5) % Neut % (Auto) 73.2 H (45.5-73.1) % Lymph % (Auto) 15.6 L (18.3-44.2) % Pettis % (Auto) 9.8 H (2.6-8.5) % Pettis # (Auto) 0.7 H (0.1-0.6) K/mm3 Abs Immat Gran (auto) (0.00-0.031) K/mm3 Absolute Neuts (auto) (1.3-6.7) K/mm3 PT (11.1-14.7) Seconds APTT (22.3-36.8) Seconds Sodium 134 L (137-145) mmol/L Potassium 2.9 L (3.4-5.0) mmol/L Carbon Dioxide 20 L (22-30) mmol/L Anion Gap (4-12) mmol/L BUN 21 H (9-20) mg/dL Creatinine 1.47 H 1.63 H (0.7-1.3) mg/dL Estimated GFR 52 L 46 L (59 - ) Glucose (65-110) mg/dL POC Capillary Glucose (65-105) mg/dl AST 65 H (17-59) U/L Alkaline Phosphatase 137 H (38-126) U/L Total Protein (6.3-8.2) g/dL Urine Protein (Negative) mg/dL Urine Glucose (UA) (Negative) mg/dL Urine Ketones (Negative) mg/dL Ur Blood (Man) (Negative) Urine RBC (0-2) /hpf 05/15/25 Range/Units 08:06 WBC (4.5-10.0) K/mm3 RBC (4.6-6.20) M/mm3 Hgb (14.0-18.0) g/dL Hct (42.0-52.0) % MCHC (32-36) g/dl RDW (11.5-14.5) % MPV (7.4-10.4) fl Immature Gran % (Auto) (0-0.5) % Neut % (Auto) (45.5-73.1) % Lymph % (Auto) (18.3-44.2) % Pettis % (Auto) (2.6-8.5) % Pettis # (Auto) (0.1-0.6) K/mm3 Abs Immat Gran (auto) (0.00-0.031) K/mm3 Absolute Neuts (auto) (1.3-6.7) K/mm3 PT (11.1-14.7) Seconds APTT (22.3-36.8) Seconds Sodium (137-145) mmol/L Potassium (3.4-5.0) mmol/L Carbon Dioxide (22-30) mmol/L Anion Gap (4-12) mmol/L BUN (9-20) mg/dL Creatinine (0.7-1.3) mg/dL Estimated GFR (59 - ) Glucose (65-110) mg/dL POC Capillary Glucose 112 H (65-105) mg/dl AST (17-59) U/L Alkaline Phosphatase (38-126) U/L Total Protein (6.3-8.2) g/dL Urine Protein (Negative) mg/dL Urine Glucose (UA) (Negative) mg/dL Urine Ketones (Negative) mg/dL Ur Blood (Man) (Negative) Urine RBC (0-2) /hpf Diabetes panel 05/14/25 05/15/25 05/15/25 Range/Units 15:59 05:20 05:20 Sodium 133 L 134 L (137-145) mmol/L Potassium 3.1 L 2.9 L (3.4-5.0) mmol/L Chloride 100 104 (98-107) mmol/L Carbon Dioxide 15 L 20 L (22-30) mmol/L BUN 22 H D 21 H (9-20) mg/dL Creatinine 1.63 H 1.47 H 1.63 H (0.7-1.3) mg/dL Glucose 163 H 110 (65-110) mg/dL Calcium 9.6 8.9 (8.4-10.2) mg/dL AST 77 H 65 H (17-59) U/L ALT 32 25 (6-50) U/L Alkaline Phosphatase 196 H 137 H (38-126) U/L Total Protein 8.9 H 7.5 (6.3-8.2) g/dL Albumin 4.2 3.5 (3.5-5.1) g/dL Calcium panel 05/14/25 05/15/25 Range/Units 15:59 05:20 Calcium 9.6 8.9 (8.4-10.2) mg/dL Albumin 4.2 3.5 (3.5-5.1) g/dL Pituitary panel 05/14/25 05/15/25 05/15/25 Range/Units 15:59 05:20 05:20 Sodium 133 L 134 L (137-145) mmol/L Potassium 3.1 L 2.9 L (3.4-5.0) mmol/L Chloride 100 104 (98-107) mmol/L Carbon Dioxide 15 L 20 L (22-30) mmol/L BUN 22 H D 21 H (9-20) mg/dL Creatinine 1.63 H 1.47 H 1.63 H (0.7-1.3) mg/dL Glucose 163 H 110 (65-110) mg/dL Calcium 9.6 8.9 (8.4-10.2) mg/dL Adrenal panel 05/14/25 05/15/25 05/15/25 Range/Units 15:59 05:20 05:20 Sodium 133 L 134 L (137-145) mmol/L Potassium 3.1 L 2.9 L (3.4-5.0) mmol/L Chloride 100 104 (98-107) mmol/L Carbon Dioxide 15 L 20 L (22-30) mmol/L BUN 22 H D 21 H (9-20) mg/dL Creatinine 1.63 H 1.47 H 1.63 H (0.7-1.3) mg/dL Glucose 163 H 110 (65-110) mg/dL Calcium 9.6 8.9 (8.4-10.2) mg/dL Total Bilirubin 0.7 0.4 (0.2-1.3) mg/dL AST 77 H 65 H (17-59) U/L ALT 32 25 (6-50) U/L Alkaline Phosphatase 196 H 137 H (38-126) U/L Total Protein 8.9 H 7.5 (6.3-8.2) g/dL Albumin 4.2 3.5 (3.5-5.1) g/dL All other labs normal. Imaging Additional studies: ITS Impressions Foot X-Ray 05/14/25 17:29 IMPRESSION: Findings concerning for osteomyelitis involving the distal aspect of the right first proximal phalanx. Foot X-Ray 05/14/25 17:33 IMPRESSION: Findings concerning for progressive osteomyelitis involving the left second distal phalanx. Abdomen/Pelvis CT 05/14/25 18:13 IMPRESSION: Hepatosplenomegaly. Mild esophagitis/gastritis. Gallbladder hydrops, with mild intra and extrahepatic bile duct dilation. No significant gallbladder inflammatory change. No obstructing stone or mass detected. Consider MRCP. Chronic right pelviectasis and urothelial enhancement, may represent a degree of UPJ obstruction and/or pyelitis. Mild urinary bladder wall thickening may be secondary to incomplete distention or cystitis. Trace ascites. Bilateral inguinal lymphadenopathy Chest X-Ray 05/14/25 19:25 IMPRESSION: No acute cardiopulmonary process. Venous Doppler Study 05/15/25 09:07 Impression: No evidence of deep venous thrombosis
[2025-05-15] MEDS: CEFEPIME 2 GM/NS 50 ML 2 GM/50 ML BAG IVPB ×2 (11:56→21:21)
[2025-05-15] MEDS: MAGNESIUM SULF 2 GM/WATER 50ML 2 GM/50 ML BAG IVPB (11:58)
--- NOTE | 2025-05-15 14:53 | PM.IMPN ---
Progress Note: A&P Assessment and Plan (1) Cellulitis: Qualifiers: Laterality: right Site of cellulitis: extremity Site of cellulitis of extremity: lower extremity Qualified Code(s): L03.115 - Cellulitis of right lower limb Code(s): L03.90 - Cellulitis, unspecified Status: Acute (2) Chronic osteomyelitis of toe of right foot: Code(s): M86.671 - Other chronic osteomyelitis, right ankle and foot Status: Acute (3) Chronic osteomyelitis of toe of left foot: Code(s): M86.672 - Other chronic osteomyelitis, left ankle and foot Status: Acute (4) Nausea & vomiting: Qualifiers: Vomiting type: unspecified Qualified Code(s): R11.2 - Nausea with vomiting, unspecified Code(s): R11.2 - Nausea with vomiting, unspecified Status: Acute (5) Acute dehydration: Code(s): E86.0 - Dehydration Status: Acute (6) Esophagitis with gastritis: Code(s): K29.70 - Gastritis, unspecified, without bleeding; K20.90 - Esophagitis, unspecified without bleeding Status: Acute (7) Gallbladder hydrops: Code(s): K82.1 - Hydrops of gallbladder Status: Acute (8) Abnormal urinalysis: Code(s): R82.90 - Unspecified abnormal findings in urine Status: Acute (9) Chronic kidney disease, stage 3b: Code(s): N18.32 - Chronic kidney disease, stage 3b Status: Acute (10) Acute hypokalemia: Code(s): E87.6 - Hypokalemia Status: Acute Plan Patient has recurrent cellulitis of the right lower extremity likely secondary to seeding from the patient's chronic diabetic foot wound of the right great toe with associated osteomyelitis. - Blood cultures have been obtained and are pending. - started on cefepime Flagyl and vancomycin General surgery was consulted from the ER but the patient prefers to have follow-up regarding his osteomyelitis of his foot which is community development aide at [place]. Subsequently General surgery consult was canceled. He would like treatment with antibiotics and potential discharge home to follow up on the as he already has scheduled. He is aware that if his condition changes or worsens he may need transfer sooner. - trend daily labs # Dehydration #CKD -avoid nephrotoxic medications - monitor strict I&O's - mild hypokalemia he received 40 mEq potassium chloride in the ER - trend cmp including magnesium level. - chronically low serum bicarb- added sodium bicarbonate tablets 650 mg p.o. b.i.d prior-continue # nausea nausea vomiting likely secondary to cellulitis and other ongoing infections His gallbladder was enlarged on imaging but he does not have any significant transaminitis or hyperbilirubinemia. His abdominal pain started the day after he was already vomiting from his other symptoms. His right upper quadrant pain is more in the right mid axillary line in flank area. CT suggest possible pyelitis but the patient denies other urinary symptoms such as dysuria, urinary frequency or hematuria. suspect more of a musculoskeletal strain due to vomiting. monitor for now Patient reports significant improvement in symptoms as he did not complain of abd pain during morning rounds at all -continue IV Zofran as needed -continue home Protonix p.o. b.i.d.. Patient's urinalysis was abnormal but not overtly suggestive of UTI. CT does demonstrate possible right pyelitis but patient does not have any bacteria leukocyte esterase or nitrates in his urine to suggest acute infection. Patient is already on broad-spectrum antibiotic coverage for diabetic cellulitis/osteomyelitis. 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 - ordered right lower extremity venous Doppler rule out DVT prior - pt reports compliance with anticoagulants. -continue Xarelto. 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 3 days ago he had fever with a temperature of 101?, emesis, was able to keep anything down. His emesis consisted just food or water. About 12 hours after starting having vomiting he did develop some right upper lateral abdominal pain in the mid axillary region is worse with tenderness to palpation. He has been having recurrent cellulitis of the right lower extremity and chronic osteomyelitis of the right great toe and left 2nd toe for quite some time. He became acutely more concerned about cellulitis on day 2 of symptoms when his right leg became erythematous and increasingly tender to touch. He has also noted right inguinal pain with palpation. He is followed by Podiatry Dr. Smith who he saw last week. He is scheduled to have amputation of the left 2nd toe and probable amputation of the right great toe on June 05. He has follow-up appointment with his community development aide on the of this month. He wanted to come into the hospital today before he got as ill as he was during his last admission in March. He did not come in sooner because his was just discharged from [place] and is requiring TPN feeds which he and his children are managing. He knows that it would have been better to go to [place] since that is where his community development aide is but he wanted to be closer to home since his was recently discharged from the hospital. He had imaging in the ER which demonstrated worsening osteomyelitis of the foot compared to prior imaging in March but we do not have his comparison studies available from [facility] [facility]. His most recent imaging from [facility] [facility] only involved imaging of the left 2nd toe in not of the right great toe. He is hoping to be admitted here and treated with antibiotics to get him through until appointment on the when he can follow-up with his community development aide. He is hoping to avoid any surgical procedures here. Patient's labs from outside facility were reviewed and is creatinine on the 05 of May was 1.59 with a serum bicarb of 19 and a normal potassium. His white count on the 26 of April was 6.8 with a hemoglobin of 9.1. Labs today demonstrated an elevated hemoglobin from baseline up to 11 and mild hypokalemia with potassium of 3.1 with serum bicarb decreased down to 15. His creatinine was minimally elevated from baseline up to 1.63. His UA was not suggestive of infection any denies urinary symptoms besides decreased urine output associated with dehydration. CT of the abdomen pelvis with contrast demonstrated hepatosplenomegaly esophagitis with gastritis, gallbladder hydrops with mild intra and extrahepatic biliary dilatation without gallbladder inflammation, chronic pelvic caliectasis and urethral enhancement may represent degree of UPJ obstruction or pylitis and mild urinary bladder wall thickening secondary to incomplete distension or cystitis trace ascites and bilateral inguinal lymphadenopathy He reports that his glucoses have been stable and had been ranging in the 140s to 160 range. Currently he reports he is still having right lateral upper quadrant pain worse with palpation that he thinks is due to muscle strain. He also reports moderate pain to his right calf worse with palpation. He denies any current nausea or vomiting. He states he feels better since receiving IV fluids. Pt is seen and examined. He is comfortable, states IV zofran works to control his nausea. Surgery was consulted in ed. Review of Systems Review of Systems: 12 systems were reviewed with pertinent positives and negatives per HPI. Except as documented in the HPI, all other systems were reviewed and are negative. The patient reports that prior to his heart valve replacement he used to weigh over 400 lb. He is now down to 250 lb in his weight is been stable. Exam Narrative: Weight 98.2 kg BMI 29.4 Const: General: comfortable Other: No acute distress, well-developed well-nourished, height weight proportionate, appears stated age HENMT: Other: Mucous membranes are tacky, no oral pharyngeal erythema Eyes: Other: Positive conjunctival pallor, no scleral icterus Neck: Other: No JVD, no lymphadenopathy Resp: Other: Clear to auscultation bilaterally, no increased work of breathing Cardio: Other: Regular rate, regular rhythm, 2+ bilateral radial and pedal pulses, no JVD GI: Other: Soft, nondistended, normoactive bowel sounds, negative Lezama sign but patient does have point tenderness below the ribcage at the right mid axillary line extending posteriorly that is reproducible to palpation : Other: Right inguinal lymphadenopathy Skin: Other: Patient has a chronic skin changes noted to the right lower extremity however new erythema is noted with increased warmth compared to the rest of the extremity erythema is near circumferential in extending from the ankle up through the mid calf and oro, he has chronic appearing wounds to the tip of the right great toe and tip of the left 2nd toe with associated swelling and erythema of the right 2nd toe Neuro: Other: Alert oriented x4, speech is clear, no facial asymmetry, no localizing neurologic deficits noted during the course of conversation Extrem: Other: Wound to the right great toe with chronic changes of the right great toe consistent with prior partial great toe amputation, chronic appearing wound to the 2nd toe of the left foot with associated erythema and edema, no drainage or purulence, 1+ edema to the right lower extremities with associated erythema as discussed above Psych: Other: Appropriate mood and affect, pleasant and cooperative, judgment and insight intact Objective Data Vital Signs Vital Signs: Vital Signs - 24 hr 05/14/25 14:57 05/14/25 15:55 05/14/25 18:33 Temperature 97.6 F Pulse Rate 92 84 76 Respiratory Rate 18 18 17 Blood Pressure 127/69 154/90 H 161/89 H Pulse Oximetry 100 100 100 Oxygen Delivery 05/14/25 20:56 05/14/25 21:00 05/14/25 21:15 Temperature Pulse Rate Respiratory Rate Blood Pressure Pulse Oximetry 100 100 100 Oxygen Delivery 05/14/25 21:45 05/14/25 21:45 05/14/25 22:40 Temperature 97.7 F 98.1 F 97.7 F Pulse Rate 67 67 72 Respiratory Rate 14 16 16 Blood Pressure 151/85 H 151/85 H 181/86 H Pulse Oximetry 100 100 100 Oxygen Delivery 05/15/25 00:00 05/15/25 02:46 05/15/25 04:00 Temperature Pulse Rate 75 78 Respiratory Rate Blood Pressure Pulse Oximetry Oxygen Delivery Room Air 05/15/25 06:00 Temperature 97.9 F Pulse Rate 76 Respiratory Rate 16 Blood Pressure 132/66 Pulse Oximetry 100 Oxygen Delivery Intake/Output Intake/Output: Intake & Output 05/12/25 05/13/25 05/14/25 05/15/25 23:59 23:59 23:59 23:59 Intake Total 2150 1550 Output Total 400 Balance 2150 1150 Meds/Results Medications: Active Medications Generic Name Dose Route Start Last Admin Trade Name Freq PRN Reason Stop Dose Admin Aspirin 81 mg 05/15/25 08:00 05/15/25 09:21 Aspirin 81 Mg Chewable Tablet PO 81 mg DAILY@0800 [facility] Administration Atorvastatin Calcium 40 mg 05/15/25 09:00 05/15/25 09:21 Atorvastatin 40 Mg Tablet PO 40 mg DAILY REYNA Administration Carvedilol 25 mg 05/14/25 23:35 05/15/25 09:21 Carvedilol 25 Mg Tablet PO 25 mg Q12HR REYNA Administration Ergocalciferol 1,250 mcg 05/15/25 09:00 05/15/25 09:21 Ergocalciferol (Vitamin D2) 1,250 Mcg (50,000 Units) Capsule PO 1,250 mcg WEEKLY REYNA Administration Folic Acid 1 mg 05/15/25 09:00 05/15/25 09:21 Folic Acid 1 Mg Tablet PO 1 mg DAILY REYNA Administration Gabapentin 400 mg 05/14/25 23:34 05/15/25 09:18 Gabapentin 400 Mg Capsule PO 400 mg QID PRN Administration Muscle Pain Hydralazine HCl 25 mg 05/15/25 09:00 05/15/25 09:21 Hydralazine Hcl 25 Mg Tablet PO 25 mg DAILY REYNA Administration Lactated Ringer's 1,000 mls @ 100 mls/hr 05/14/25 20:20 05/15/25 05:43 Lr - Lactated Ringers Iv IV CONT 100 mls/hr .Q10H REYNA Administration Cefepime HCl 2 gm in 50 mls @ 100 mls/hr 05/15/25 09:00 05/15/25 11:56 Maxipime 2 Gm/Ns 50 Ml IVPB 100 mls/hr Q12HR REYNA Administration Metronidazole 500 mg in 100 mls @ 100 mls/hr 05/15/25 06:00 05/15/25 14:08 Flagyl 500 Mg/Iso Soln 100 Ml IVPB 100 mls/hr Q8HR REYNA Administration Vancomycin HCl 1,500 mg in 500 mls @ 250 mls/hr 05/15/25 16:00 Vancomycin 1,500 Mg/Ns 500 Ml IVPB Q18H REYNA Loperamide HCl 2 mg 05/15/25 05:25 05/15/25 05:41 Loperamide Hcl 2 Mg Capsule PO 2 mg PRN PRN Administration Diarrhea Losartan Potassium 50 mg 05/15/25 09:00 05/15/25 09:21 Losartan Potassium 50 Mg Tablet PO 50 mg DAILY REYNA Administration Morphine Sulfate 4 mg 05/14/25 20:32 05/15/25 14:06 Morphine Sulfate (*Crx) 4 Mg/Ml Inj IV PUSH 4 mg Q2H PRN Administration Pain Rated 7-10 Ondansetron HCl 4 mg 05/14/25 20:32 05/15/25 12:10 Ondansetron Inj 4 Mg/2 Ml Vial IV PUSH 4 mg Q4H PRN Administration Nausea Oxycodone HCl 5 mg 05/14/25 23:34 05/15/25 05:41 Oxycodone Hcl (*Crx) 5 Mg Tab Ir PO 5 mg Q6H PRN Administration pain 4-10 Pantoprazole Sodium 40 mg 05/14/25 23:35 05/15/25 09:21 Pantoprazole 40 Mg Tablet PO 40 mg Q12HR REYNA Administration Rivaroxaban 20 mg 05/14/25 23:40 05/15/25 00:28 Rivaroxaban 20 Mg Tablet PO 20 mg DAILY@1700 REYNA Administration Sertraline HCl 150 mg 05/14/25 23:35 05/15/25 00:28 Sertraline Hcl 50 Mg Tablet PO 150 mg HS REYNA Administration Sodium Bicarbonate 650 mg 05/15/25 09:00 05/15/25 09:21 Sodium Bicarbonate Tab 650 Mg Tablet PO 650 mg BID REYNA Administration Tizanidine HCl 2 mg 05/14/25 23:34 Tizanidine Hcl 2 Mg Tablet PO Q6H PRN muscle spasticity Zolpidem Tartrate 10 mg 05/14/25 23:40 05/15/25 00:28 Zolpidem Tartrate (*Crx) 5 Mg Tablet PO 10 mg QHS REYNA Administration Radiology Results: ITS Impressions Foot X-Ray 05/14/25 17:33 IMPRESSION: Findings concerning for progressive osteomyelitis involving the left second distal phalanx. Abdomen/Pelvis CT 05/14/25 18:13 IMPRESSION: Hepatosplenomegaly. Mild esophagitis/gastritis. Gallbladder hydrops, with mild intra and extrahepatic bile duct dilation. No significant gallbladder inflammatory change. No obstructing stone or mass detected. Consider MRCP. Chronic right pelviectasis and urothelial enhancement, may represent a degree of UPJ obstruction and/or pyelitis. Mild urinary bladder wall thickening may be secondary to incomplete distention or cystitis. Trace ascites. Bilateral inguinal lymphadenopathy Chest X-Ray 05/14/25 19:25 IMPRESSION: No acute cardiopulmonary process. Venous Doppler Study 05/15/25 09:07 Impression: No evidence of deep venous thrombosis Labs Labs: Laboratory Results - last 24 hr 05/14/25 05/14/25 05/14/25 15:59 16:49 18:18 WBC 11.6 H RBC 4.41 L Hgb 11.5 L D Hct 35.4 L MCV 80.3 MCH 26.1 MCHC 32.5 RDW 15.9 H Plt Count 244 MPV 12.4 H Immature Gran % (Auto) 0.7 H Neut % (Auto) 81.1 H Lymph % (Auto) 11.8 L [place] % (Auto) 6.1 Eos % (Auto) 0.1 Baso % (Auto) 0.2 Lymph # (Auto) 1.37 [place] # (Auto) 0.7 H Eos # (Auto) 0.0 Baso # (Auto) 0.0 Abs Immat Gran (auto) 0.08 H Absolute Neuts (auto) 9.4 H Absolute Nucleated RBC 0.000 Nucleated RBC % 0.0 PT 22.8 H INR 2.0 APTT 57.5 H Sodium 133 L Potassium 3.1 L Chloride 100 Carbon Dioxide 15 L Anion Gap 18 H BUN 22 H D Creatinine 1.63 H Estim Creat Clear Calc 64 Estimated GFR 46 L Glucose 163 H POC Capillary Glucose Lactic Acid 1.7 Calcium 9.6 Magnesium 1.7 Total Bilirubin 0.7 AST 77 H ALT 32 Alkaline Phosphatase 196 H Total Protein 8.9 H Albumin 4.2 Lipase 23 Procalcitonin Urine Color Yellow Urine Appearance Clear Urine pH 6.0 Ur Specific [place] 1.016 Urine Protein 3+ H Urine Glucose (UA) 1+ H Urine Ketones Trace H Ur Blood (Man) 3+ H Urine Nitrate Negative Urine Bilirubin Negative Urine Urobilinogen 0.2 Leukocyte Esterase Rfl Negative Urine RBC 51-100 H Urine WBC 0-5 Ur Squamous Epith Cells None seen Urine Bacteria None seen Urine Casts 3-5 C. difficile (PCR) 05/14/25 05/15/25 05/15/25 20:45 03:52 05:20 WBC 7.1 RBC 3.65 L Hgb 9.5 L Hct 30.4 L MCV 83.3 MCH 26.0 MCHC 31.3 L RDW 16.0 H Plt Count 164 MPV 12.2 H Immature Gran % (Auto) 0.3 Neut % (Auto) 73.2 H Lymph % (Auto) 15.6 L [place] % (Auto) 9.8 H Eos % (Auto) 0.7 Baso % (Auto) 0.4 Lymph # (Auto) 1.11 [place] # (Auto) 0.7 H Eos # (Auto) 0.1 Baso # (Auto) 0.0 Abs Immat Gran (auto) 0.02 Absolute Neuts (auto) 5.2 Absolute Nucleated RBC 0.000 Nucleated RBC % 0.0 PT INR APTT Sodium 134 L Potassium 2.9 L Chloride 104 Carbon Dioxide 20 L Anion Gap 10 BUN 21 H Creatinine 1.47 H Estim Creat Clear Calc Estimated GFR Glucose POC Capillary Glucose Lactic Acid Calcium Magnesium Total Bilirubin AST ALT Alkaline Phosphatase Total Protein Albumin Lipase Procalcitonin 13.4 Urine Color Urine Appearance Urine pH Ur Specific [place] Urine Protein Urine Glucose (UA) Urine Ketones Ur Blood (Man) Urine Nitrate Urine Bilirubin Urine Urobilinogen Leukocyte Esterase Rfl Urine RBC Urine WBC Ur Squamous Epith Cells Urine Bacteria Urine Casts C. difficile (PCR) Negative 05/15/25 05/15/25 05/15/25 05:20 05:20 05:20 WBC RBC Hgb Hct MCV MCH MCHC RDW Plt Count MPV Immature Gran % (Auto) Neut % (Auto) Lymph % (Auto) [place] % (Auto) Eos % (Auto) Baso % (Auto) Lymph # (Auto) [place] # (Auto) Eos # (Auto) Baso # (Auto) Abs Immat Gran (auto) Absolute Neuts (auto) Absolute Nucleated RBC Nucleated RBC % PT INR APTT Sodium Potassium Chloride Carbon Dioxide Anion Gap BUN Creatinine 1.63 H Estim Creat Clear Calc 63 57 Estimated GFR 52 L 46 L Glucose 110 POC Capillary Glucose Lactic Acid Calcium 8.9 Magnesium 1.7 Total Bilirubin 0.4 AST 65 H ALT 25 Alkaline Phosphatase 137 H Total Protein 7.5 Albumin 3.5 Lipase Procalcitonin Urine Color Urine Appearance Urine pH Ur Specific [place] Urine Protein Urine Glucose (UA) Urine Ketones Ur Blood (Man) Urine Nitrate Urine Bilirubin Urine Urobilinogen Leukocyte Esterase Rfl Urine RBC Urine WBC Ur Squamous Epith Cells Urine Bacteria Urine Casts C. difficile (PCR) 05/15/25 05/15/25 08:06 11:56 WBC RBC Hgb Hct MCV MCH MCHC RDW Plt Count MPV Immature Gran % (Auto) Neut % (Auto) Lymph % (Auto) [place] % (Auto) Eos % (Auto) Baso % (Auto) Lymph # (Auto) [place] # (Auto) Eos # (Auto) Baso # (Auto) Abs Immat Gran (auto) Absolute Neuts (auto) Absolute Nucleated RBC Nucleated RBC % PT INR APTT Sodium Potassium Chloride Carbon Dioxide Anion Gap BUN Creatinine Estim Creat Clear Calc Estimated GFR Glucose POC Capillary Glucose 112 H 118 H Lactic Acid Calcium Magnesium Total Bilirubin AST ALT Alkaline Phosphatase Total Protein Albumin Lipase Procalcitonin Urine Color Urine Appearance Urine pH Ur Specific [place] Urine Protein Urine Glucose (UA) Urine Ketones Ur Blood (Man) Urine Nitrate Urine Bilirubin Urine Urobilinogen Leukocyte Esterase Rfl Urine RBC Urine WBC Ur Squamous Epith Cells Urine Bacteria Urine Casts C. difficile (PCR) Quality VTE Prophylaxis VTE prophylaxis: pharmacologic ordered (Continue home Xarelto)
[2025-05-15] MEDS: VANCOMYCIN 1,500 MG/NS 500 ML 1,500 MG/500 ML BAG 250 MG IVPB (16:07)
[2025-05-15 16:33] LABS: Anion Gap 12 mmol/L (4-12); Blood Urea Nitrogen 22 mg/dL (9-20); Calcium 9.0 mg/dL (8.4-10.2); Carbon Dioxide 18 mmol/L (22-30); Chloride 106 mmol/L (98-107); Estimated CRCL calculation 54 ml/min; Estimated Glomerular Filt Rate 43; Glucose 100 mg/dL (65-110); Potassium 3.7 mmol/L (3.4-5.0); Sodium 136 mmol/L (137-145)
[2025-05-16] MEDS: LACTATED RINGERS 1,000 ML 100 ML IV CONT (04:42)
[2025-05-16] MEDS: MORPHINE SULFATE (*CRX) 4 MG/ML INJ IV PUSH (04:43)
[2025-05-16 06:00] VITALS: BP 119/58; PULSE 52; RESP 12; TEMP 36.8; O2SAT 100
[2025-05-16] MEDS: metroNIDAZOLE 500 MG/ISO 100ML 500 MG/100 ML BAG 100 MG IVPB (06:14)
[2025-05-16 09:13] LABS: Hematocrit 27.9 % (42.0-52.0); Hemoglobin 8.6 g/dL (14.0-18.0); Mean Corpuscular HGB Conc 30.8 g/dl (32-36); Mean Corpuscular Hemoglobin 26.1 pg (26-34); Mean Corpuscular Volume 84.5 fl (80-100); Platelet Count Result 147 k/mm3 (150-375); Red Blood Count 3.30 M/mm3 (4.6-6.20); White Blood Count 4.6 K/mm3 (4.5-10.0)
[2025-05-16] MEDS: CEFEPIME 2 GM/NS 50 ML 2 GM/50 ML BAG IVPB (09:14)
[2025-05-16] MEDS: PANTOPRAZOLE 40 MG TABLET PO (09:15)
[2025-05-16] MEDS: SODIUM BICARBONATE TAB 650 MG TABLET PO (09:15)
[2025-05-16] MEDS: ATORVASTATIN 40 MG TABLET PO (09:15)
[2025-05-16 09:21] VITALS: PULSE 50
[2025-05-16] MEDS: ASPIRIN 81 MG CHEWABLE TABLET PO (09:21)
[2025-05-16] MEDS: FOLIC ACID 1 MG TABLET PO (09:22)
[2025-05-16] MEDS: LOSARTAN POTASSIUM 50 MG TABLET PO (09:22)
[2025-05-16] MEDS: POTASSIUM CHLORIDE 20 MEQ ER TABLET 40 MEQ PO (09:22)
--- NOTE | 2025-05-16 09:26 | P.DS_ITS ---
DS: Admitting Diagnosis Discharge Date 05/16/2025 <Colin Fuentes Student - Last Filed: 05/16/25 10:50> Admitting Diagnosis Cellulitis <Colin Fuentes Student - Last Filed: 05/16/25 10:50> DS: Discharge Diagnosis Discharge Diagnosis (1) Cellulitis: Qualifiers: Laterality: right Site of cellulitis: extremity Site of cellulitis of extremity: lower extremity Qualified Code(s): L03.115 - Cellulitis of right lower limb <Jessica Nieto DIRECTORY COMPILER - Last Filed: 05/16/25 11:07> Code(s): L03.90 - Cellulitis, unspecified <Jessica Nieto DIRECTORY COMPILER - Last Filed: 05/16/25 11:07> Status: Acute <Jessica Nieto DIRECTORY COMPILER - Last Filed: 05/16/25 11:07> (2) Chronic osteomyelitis of toe of right foot: Code(s): M86.671 - Other chronic osteomyelitis, right ankle and foot <Jessica Nieto DIRECTORY COMPILER - Last Filed: 05/16/25 11:07> Status: Acute <Jessica Nieto DIRECTORY COMPILER - Last Filed: 05/16/25 11:07> (3) Chronic osteomyelitis of toe of left foot: Code(s): M86.672 - Other chronic osteomyelitis, left ankle and foot <Jessica Nieto DIRECTORY COMPILER - Last Filed: 05/16/25 11:07> Status: Acute <Jessica Nieto DIRECTORY COMPILER - Last Filed: 05/16/25 11:07> (4) Nausea & vomiting: Qualifiers: Vomiting type: unspecified Qualified Code(s): R11.2 - Nausea with vomiting, unspecified <Jessica Nieto DIRECTORY COMPILER - Last Filed: 05/16/25 11:07> Code(s): R11.2 - Nausea with vomiting, unspecified <Jessica Nieto, DIRECTORY COMPILER - Last Filed: 05/16/25 11:07> Status: Acute <Jessica Nieto DIRECTORY COMPILER - Last Filed: 05/16/25 11:07> (5) Acute dehydration: Code(s): E86.0 - Dehydration <Jessica T. Gerson, DIRECTORY COMPILER - Last Filed: 05/16/25 11:07> Status: Acute <Jessica Nieto, DIRECTORY COMPILER - Last Filed: 05/16/25 11:07> (6) Esophagitis with gastritis: Code(s): K29.70 - Gastritis, unspecified, without bleeding; K20.90 - Esophagitis, unspecified without bleeding <Jessica Nieto, DIRECTORY COMPILER - Last Filed: 05/16/25 11:07> Status: Acute <Jessica Nieto, DIRECTORY COMPILER - Last Filed: 05/16/25 11:07> (7) Gallbladder hydrops: Code(s): K82.1 - Hydrops of gallbladder <Jessica Nieto, DIRECTORY COMPILER - Last Filed: 05/16/25 11:07> Status: Acute <Jessica Nieto, DIRECTORY COMPILER - Last Filed: 05/16/25 11:07> (8) Abnormal urinalysis: Code(s): R82.90 - Unspecified abnormal findings in urine <Jessica Nieto, DIRECTORY COMPILER - Last Filed: 05/16/25 11:07> Status: Acute <Jessica Nieto, DIRECTORY COMPILER - Last Filed: 05/16/25 11:07> (9) Chronic kidney disease, stage 3b: Code(s): N18.32 - Chronic kidney disease, stage 3b <Jessica Nieto, DIRECTORY COMPILER - Last Filed: 05/16/25 11:07> Status: Acute <Jessica Nieto, DIRECTORY COMPILER - Last Filed: 05/16/25 11:07> (10) Acute hypokalemia: Code(s): E87.6 - Hypokalemia <Jessica Nieto, DIRECTORY COMPILER - Last Filed: 05/16/25 11:07> Status: Acute <Jessica Nieto, DIRECTORY COMPILER - Last Filed: 05/16/25 11:07> DS: Summary Hospital Course Hospital Course: 44 year old male with PMHx of DM, chronic diabetic foot ulcers, hypertension, COPD, DVT on Xarelto, mitral valve replacement x2 presented on 05/14/2025 for abdominal pain, nausea, vomiting and diarrhea that began 3 days prior to admission. Right upper quadrant abdominal pain started x1 day after vomiting. Additionally, you had right greater than left bilateral lower leg pain & swelling. Current history of bilateral toe infections and scheduled for amputations on 06/05/2025 with podiatry at [facility]. In the ED, chest x-ray was negative for cardiopulmonary pathologies, right & left foot x-rays showed concerns for osteomyelitis, Urine analysis was abnormal, but not overtly suggestive of an UTI, and an abdominal CT showed hepatosplenomegaly esophagitis with gastritis, gallbladder hydrops with mild intra and extrahepatic biliary dilatation without gallbladder inflammation. C. Diff testing on stool sample was negative. Blood cultures have not shown growth to date. You were started on and treated with IV Cefepime, Metronidazole, & Vancomycin to treat your osteomyelitis, cellulitis, and abnormal urine analysis. Additionally, your initial labs were low in Potassium and therefore you were treated with Potassium Chloride. This was corrected and the medication was discontinued during your admission. Nausea was treated and controlled per your report with IV Zofran. On 05/15/25, a right venous Doppler study was completed and was negative for a DVT. On 05/16/25, pain was manageable on current pain regimen, nausea was controlled, and abdominal pain was resolved. # Cellulitis & bilateral foot osteomyelitis - Begin taking cephalexin HCl (Keflex) 500mg every 6 hours. First dose is on 05/16/2025 at 18:00. Last Dose is on 05/21/2025 at 18:00. - Follow up as previously scheduled with Podiatry at [facility] for surgery on 06/05/2025 - Inform your surgeon of your recent admission at [facility] and current antibiotic regimen. - Prescribed Oxycodone HCl 5mg every 6 hours as needed for pain - Follow up with Primary Care Physician for further pain management. # Nausea - May restart home ondansetron (Zofran) and take continuously as needed - Consider taking antacid, like TUMS, between doses of ondansetron. # Chronic Kidney Disease, Stage 3b - Serum Creatinine levels were elevated & ranging from 1.47 to 1.75. stable - Follow up with PCP to discuss # Hypokalemia - Treated for hypokalemia during admission with Potassium Chloride. - Resolved. <Jessica Nieto APRN - Last Filed: 05/16/25 11:07> 44 year old male with PMHx of DM, chronic diabetic foot ulcers, hypertension, COPD, DVT on Xarelto, mitral valve replacement x2 presented on 05/14/2025 for abdominal pain, nausea, vomiting and diarrhea that began 3 days prior to admission. Right upper quadrant abdominal pain started x1 day after vomiting. Additionally, you had right greater than left bilateral lower leg pain & swelling. Current history of bilateral toe infections and scheduled for amput ations on 06/05/2025 with podiatry at [facility]. In the ED, chest x-ray was negative for cardiopulmonary pathologies, right & left foot x-rays showed concerns for osteomyelitis, Urine analysis was abnormal, but not overtly suggestive of an UTI, and an abdominal CT showed hepatosplenomegaly esophagitis with gastritis, gallbladder hydrops with mild intra and extrahepatic biliary dilatation without gallbladder inflammation. C. Diff testing on stool sample was negative. Blood cultures have not shown growth to date. You were started on and treated with IV Cefepime, Metronidazole, & Vancomycin to treat your osteomyelitis, cellulitis, and abnormal urine analysis. Additionally, your initial labs were low in Potassium and therefore you were treated with Potassium Chloride. This was corrected and the medication was discontinued during your admission. Nausea was treated and controlled per your report with IV Zofran. On 05/15/25, a right venous Doppler study was completed and was negative for a DVT. On 05/16/25, pain was manageable on current pain regimen, nausea was controlled, and abdominal pain was resolved. # Cellulitis & bilateral foot osteomyelitis - Begin taking cephalexin HCl (Keflex) 500mg every 6 hours. First dose is on 05/16/2025 at 18:00. Last Dose is on 05/21/2025 at 18:00. - Follow up as previously scheduled with Podiatry at [facility] for surgery on 06/05/2025 - Inform your surgeon of your recent admission at [facility] and current antibiotic regimen. - Prescribed Oxycodone HCl 5mg every 6 hours as needed for pain - Follow up with Primary Care Physician for further pain management. # Nausea - May restart home ondansetron (Zofran) and take continuously as needed - Consider taking antacid, like TUMS, between doses of ondansetron. # Chronic Kidney Disease, Stage 3b - Serum Creatinine levels were elevated & ranging from 1.47 to 1.75. - Follow up with PCP to discuss # Hypokalemia - Treated for hypokalemia during admission with Potassium Chloride. - Resolved. <Colin Fuentes Student - Last Filed: 05/16/25 10:50> Time Spent with Patient Time attestation: Total time spent providing and/or coordinating discharge services: <Jessica Nieto DIRECTORY COMPILER - Last Filed: 05/16/25 11:07> Time spent: Greater than 30 minutes <Liz Wood - Last Filed: 05/16/25 10:50> Exam Narrative: Weight 98.2 kg BMI 29.4 <Jessica Nieto DIRECTORY COMPILER - Last Filed: 05/16/25 11:07> Const: General: comfortable <Jessica Nieto DIRECTORY COMPILER - Last Filed: 05/16/25 11:07> Other: No acute distress, well-developed well-nourished, height weight proportionate, appears stated age <Jessica Nieto DIRECTORY COMPILER - Last Filed: 05/16/25 11:07> HENMT: Other: Mucous membranes are tacky, no oral pharyngeal erythema <Jessica Nieto DIRECTORY COMPILER - Last Filed: 05/16/25 11:07> Eyes: Other: Positive conjunctival pallor, no scleral icterus <Jessica Nieto DIRECTORY COMPILER - Last Filed: 05/16/25 11:07> Neck: Other: No JVD, no lymphadenopathy <Jessica Nieto DIRECTORY COMPILER - Last Filed: 05/16/25 11:07> Resp: Other: Clear to auscultation bilaterally, no increased work of breathing <Jessica Nieto DIRECTORY COMPILER - Last Filed: 05/16/25 11:07> Cardio: Other: Regular rate, regular rhythm, 2+ bilateral radial and pedal pulses, no JVD <Jessica Nieto DIRECTORY COMPILER - Last Filed: 05/16/25 11:07> GI: Other: Soft, nondistended, normoactive bowel sounds, negative Lezama sign but patient does have point tenderness below the ribcage at the right mid axillary line extending posteriorly that is reproducible to palpation <Jessica Nieto DIRECTORY COMPILER - Last Filed: 05/16/25 11:07> Other: Soft, nondistended, normoactive bowel sounds, negative Lezama sign. Denies tenderness to palpation to all abdominal regoins. <Colin Fuentes, Student - Last Filed: 05/16/25 10:50> : Other: Right inguinal lymphadenopathy <Jessica Nieto, DIRECTORY COMPILER - Last Filed: 05/16/25 11:07> Skin: Other: Patient has a chronic skin changes noted to the right lower extremity however new erythema is noted with increased warmth compared to the rest of the extremity erythema is near circumferential in extending from the ankle up through the mid calf and oro, he has chronic appearing wounds to the tip of the right great toe and tip of the left 2nd toe with associated swelling and eryt silvia of the right 2nd toe <Jessica Nieto, DIRECTORY COMPILER - Last Filed: 05/16/25 11:07> Neuro: Other: Alert oriented x4, speech is clear, no facial asymmetry, no localizing neurologic deficits noted during the course of conversation <Jessica Nieto DIRECTORY COMPILER - Last Filed: 05/16/25 11:07> Extrem: Other: Wound to the right great toe with chronic changes of the right great toe consistent with prior partial great toe amputation, chronic appearing wound to the 2nd toe of the left foot with associated erythema and edema, no drainage or purulence, 1+ edema to the right lower extremities with associated erythema as discussed above <Jessica Nieto, DIRECTORY COMPILER - Last Filed: 05/16/25 11:07> Psych: Other: Appropriate mood and affect, pleasant and cooperative, judgment and insight intact <Jessica Nieto DIRECTORY COMPILER - Last Filed: 05/16/25 11:07> DS: Data Data Completed and Pending Labs on day of discharge: Labs from last 24 hours 05/16/25 05/16/25 05/15/25 09:03 07:34 17:11 WBC 4.6 RBC 3.30 L Hgb 8.6 L Hct 27.9 L MCV 84.5 MCH 26.1 MCHC 30.8 L RDW 16.5 H Plt Count 147 L MPV 10.7 H Sodium Pending Potassium Pending Chloride Pending Carbon Dioxide Pending Anion Gap Pending BUN Pending Creatinine Pending Estim Creat Clear Calc Pending Estimated GFR Pending Glucose Pending POC Capillary Glucose 97 105 Calcium Pending Total Bilirubin Pending AST Pending ALT Pending Alkaline Phosphatase Pending Total Protein Pending Albumin Pending Vancomycin Trough Pending 05/15/25 05/15/25 15:52 11:56 WBC RBC Hgb Hct MCV MCH MCHC RDW Plt Count MPV Sodium 136 L Potassium 3.7 Chloride 106 Carbon Dioxide 18 L Anion Gap 12 BUN 22 H Creatinine 1.73 H Estim Creat Clear Calc 54 Estimated GFR 43 L Glucose 100 POC Capillary Glucose 118 H Calcium 9.0 Total Bilirubin AST ALT Alkaline Phosphatase Total Protein Albumin Vancomycin Trough Preliminary micro results at discharge 05/14/25 20:45 Blood Culture - Preliminary Blood 05/14/25 20:45 Blood Culture - Preliminary Blood <Jessica Nieto APRN - Last Filed: 05/16/25 11:07> Discharge Plan Discharge Attending physician on discharge: Lucas Valderrama <Jessica Nieto APRN - Last Filed: 05/16/25 11:07> Lucas Valderrama <Liz Wood - Last Filed: 05/16/25 10:50> Discharging Clinician: Jessica Nieto <Jessica Nieto APRN - Last Filed: 05/16/25 11:07> Jessica Nieto <Liz Wood - Last Filed: 05/16/25 10:50> Patient Disposition: Home <Jessica Nieto APRN - Last Filed: 05/16/25 11:07> Activity: may shower <Jessica Nieto APRN - Last Filed: 05/16/25 11:07> may shower <Liz Wood - Last Filed: 05/16/25 10:50> Diet: regular <Jessica Nieto APRN - Last Filed: 05/16/25 11:07> regular <Liz Wood - Last Filed: 05/16/25 10:50> Discharge Instructions: Start taking cephalexin HCl (Keflex) 500mg every 6 hours. - First dose is on 05/16/2025 at 18:00. - Last Dose is on 05/21/2025 at 18:00. Inform your Waist Pleater/Surgeon of recent admission. Follow up as scheduled for surgery on 06/05/2025 at [facility]. Restart taking home ondansetron (Zofran) and take continuously as needed - Consider taking antacid, like TUMS, between doses of ondansetron. You were prescribed Oxycodone HCl 5mg. Take 1 tablet by mouth every 6 hours as needed for pain. Follow up with PCP to discuss: - Further pain management if needed. - Chronic Kidney Disease, stage 3b - Nausea management, if needed <Jessica Nieto APRN - Last Filed: 05/16/25 11:07> Patient Instructions: Antibiotic Form <Jessica Nieto APRN - Last Filed: 05/16/25 11:07> Patient Language: Turkish <Jessica Nieto APRN - Last Filed: 05/16/25 11:07> Stand Alone Forms: General Discharge Information <Jessica Nieto APRN - Last Filed: 05/16/25 11:07> Follow-up/Referrals: PHYSICIAN NOT ON STAFF,NONSTAFF [Primary Care Provider] - 1 Week <Jessica Nieto APRN - Last Filed: 05/16/25 11:07> Discharge Medications: New cephalexin 500 mg Capsule 500 mg PO Q6HR Qty: 21 0RF Continued carvedilol 25 mg tablet 25 mg PO Q12H hydralazine 25 mg tablet 25 mg PO DAILY losartan 50 mg tablet 50 mg PO DAILY pantoprazole 40 mg tablet,delayed release (DR/EC) 40 mg PO Q12H Xarelto 20 mg tablet 20 mg PO QPM zolpidem 10 mg tablet 10 mg PO QHS folic acid 1 mg tablet 1 mg PO DAILY ergocalciferol (vitamin D2) 1,250 mcg (50,000 unit) capsule 1,250 mcg PO WEEKLY aspirin 81 mg tablet,chewable 1 tablet PO DAILY gabapentin 300 mg capsule 400 mg PO QID PRN (Reason: Muscle Pain) atorvastatin 80 mg tablet 40 mg PO DAILY sertraline 100 mg tablet 150 mg PO HS Patient Comments: patient taking 200mg buspirone 15 mg tablet 15 mg PO DAILY PRN (Reason: anxiey) tizanidine 2 mg tablet 2 mg PO Q6H PRN (Reason: muscle spasticity) ondansetron 4 mg tablet,disintegrating 4 mg translingual Q8H PRN (Reason: nausea and vomiting) oxycodone 5 mg tablet 5 mg PO Q6H PRN (Reason: pain) Qty: 12 0RF <Jessica Nieto APRN - Last Filed: 05/16/25 11:07> Date of admission: 05/15/25 11:50 <Jessica Nieto APRN - Last Filed: 05/16/25 11:07> Primary Care Provider: PHYSICIAN NOT ON STAFF,NONSTAFF <Jessica Nieto APRN - Last Filed: 05/16/25 11:07> Admitting Provider: Sidra Gould <Jessica Nieto APRN - Last Filed: 05/16/25 11:07> Attending physician on admission: Sidra Gould <Jessica Nieto APRN - Last Filed: 05/16/25 11:07> Condition: Stable <Jessica Nieto APRN - Last Filed: 05/16/25 11:07> Quality VTE Prophylaxis VTE prophylaxis: pharmacologic ordered (Continue home Xarelto) <Jessica Nieto APRN - Last Filed: 05/16/25 11:07> Hospitalist MIPS Heart Failure (Exclusion) Patient has history of Heart Transplant or Left Ventricular Assistive Device?: No <Jessica Nieto APRN - Last Filed: 05/16/25 11:07> IF YES, STOP HERE: Heart Failure (Qualifier) Patient has current or prior documentation of LVEF less than or equal to 40%, or mod/servere depressed LVSF?: No <Jessica Nieto APRN - Last Filed: 05/16/25 11:07> IF NO, STOP HERE:
[2025-05-16 09:27] LABS: Alanine Aminotransferase 24 U/L (6-50); Albumin Level 3.1 g/dL (3.5-5.1); Alkaline Phosphatase 118 U/L (38-126); Anion Gap 8 mmol/L (4-12); Aspartate Amino Transferase 45 U/L (17-59); Bilirubin,Total 0.1 mg/dL (0.2-1.3); Blood Urea Nitrogen 19 mg/dL (9-20); Calcium 8.7 mg/dL (8.4-10.2); Carbon Dioxide 20 mmol/L (22-30); Chloride 110 mmol/L (98-107); Estimated CRCL calculation 54 ml/min; Estimated Glomerular Filt Rate 43; Glucose 118 mg/dL (65-110); Potassium 4.1 mmol/L (3.4-5.0); Sodium 138 mmol/L (137-145); Total Protein 6.8 g/dL (6.3-8.2)
[2025-05-16] MEDS: ONDANSETRON INJ 4 MG/2 ML VIAL IV PUSH (09:37)
== END 2025-05-16 14:00 | disposition home or self-care (01) | DRG 344 ==
LOC: ANHED 20:32 → ANH3MEDSUR 21:16
PROVIDERS: Admitting Provider Internal Medicine; Emergency Provider Physician Assistant; Visit Provider Nurse Practitioner
DX: E11.628 Type 2 diabetes mellitus with other skin complications (principal); M86.671 Other chronic osteomyelitis, right ankle and foot; M86.672 Other chronic osteomyelitis, left ankle and foot; E11.621 Type 2 diabetes mellitus with foot ulcer; L03.115 Cellulitis of right lower limb; L97.519 Non-pressure chronic ulcer of other part of right foot with unspecified severity; L97.529 Non-pressure chronic ulcer of other part of left foot with unspecified severity; I12.9 Hypertensive chronic kidney disease with stage 1 through stage 4 chronic kidney disease, or unspecified chronic kidney disease; N18.32 Chronic kidney disease, stage 3b; E86.0 Dehydration; E87.6 Hypokalemia; E11.69 Type 2 diabetes mellitus with other specified complication; E11.22 Type 2 diabetes mellitus with diabetic chronic kidney disease; E11.40 Type 2 diabetes mellitus with diabetic neuropathy, unspecified; E11.21 Type 2 diabetes mellitus with diabetic nephropathy; E78.5 Hyperlipidemia, unspecified; J44.9 Chronic obstructive pulmonary disease, unspecified; I34.0 Nonrheumatic mitral (valve) insufficiency; K29.70 Gastritis, unspecified, without bleeding; K20.90 Esophagitis, unspecified without bleeding; K82.1 Hydrops of gallbladder; K76.0 Fatty (change of) liver, not elsewhere classified; Z95.2 Presence of prosthetic heart valve; Z86.718 Personal history of other venous thrombosis and embolism; Z79.82 Long term (current) use of aspirin; Z79.01 Long term (current) use of anticoagulants; Z87.891 Personal history of nicotine dependence; Z87.442 Personal history of urinary calculi
CPT/HCPCS: 36415; 71045; 73630; 74177; 80048; 80053; 80202; 81001; 82565; 82948; 83605; 83690; 83735; 84145; 85025; 85027; 85610; 85730; 87040; 87045; 87427; 87449; 87493; 93005; 93971; 96361; 96365; 96368; 96374; 96375; 99285; A9270; G0378; G0379; J0692; J1836; J2270; J2405; J3373; J3475; J7030; J7120; Q9967

== ENCOUNTER 2025-09-29 19:37 | Inpatient (IN) | payer OTHER, SELFPAY ==
[2025-09-29] VITALS (26 sets, daily range): BP systolic 128–184; BP diastolic 76–107; PULSE 78–102; RESP 12–32; TEMP 36.8–36.9; O2SAT 90–100; BMI 28.4
--- NOTE | ~2025-09-29 | XR_ITS ---
Examination: XR chest 1V portable Clinical History: CHF Comparison: 09/29/2025 Technique: Portable AP Findings: Heart size normal. Decreasing interstitial markings. No pleural effusion or pneumothorax. No acute bony abnormality. IMPRESSION: 1. Improving interstitial pulmonary edema. Reviewed, dictated and finalized at location R. MBLER FLEXIBLE LEADS
--- NOTE | ~2025-09-29 | XR_ITS ---
EXAMINATION: XR chest 1V portable DATE: 09/29/2025 20:04 INDICATION: Chest pain. TECHNIQUE: A single frontal view of the chest was obtained. COMPARISON: Chest x-ray dated 05/14/2025. FINDINGS: Postoperative changes of the heart with mild cardiomegaly. Patchy airspace opacification is noted at the lung bases on both sides. Findings the right lung base are more prominent than left. Upper lung fowler are clear. IMPRESSION: 1. Mild cardiomegaly and postoperative changes of the heart. 2. Patchy airspace opacity lung bases right more prominent than left. Possible bilateral pneumonia. Reviewed, dictated and finalized at location T. ER CUTTER MACHINE OPERATOR
--- NOTE | ~2025-09-29 | CT_ITS ---
EXAMINATION: CT abdomen pelvis w con DATE: 09/29/2025 21:07 INDICATION: Right-sided abdominal pain. Right flank pain. TECHNIQUE: Computed tomography (CT) of the abdomen and pelvis was performed 100 cc Omnipaque 350 intravenous contrast. Automated exposure control and iterative reconstruction technique were employed. The dose-length product was 928.42 mGy-cm. COMPARISON: CT abdomen and pelvis dated 05/14/2025. FINDINGS: The lung bases show evidence of groundglass opacities due to pulmonary edema and fluid in the interlobar fissure suggestive of congestive heart failure. No focal lesions of the liver and spleen. The gallbladder shows no acute findings. Pancreas shows no acute findings. 10 mm size calculus in the lower calyx of right kidney. Mildly prominent right renal pelvis. No significant hydroureter. Mild perinephric stranding surrounding the right kidney suggests possible pyelonephritis. No evidence of small bowel obstruction. Appendix is normal in size. No inflammatory changes in the pelvis. No free fluid. No free air. IMPRESSION: 1. 10 mm calculus in the right kidney lower calyx. Mild prominence of right renal pelvis. Mild perinephric stranding around the kidney, suggesting possible pyelonephritis. 2. No evidence of hydroureter. No bladder calculus. Reviewed, dictated and finalized at location T. TESTER IMPRESSION: 1. 10 mm calculus in the right kidney lower calyx. Mild prominence of right domonique al pelvis. Mild perinephric stranding around the kidney, suggesting possible py elonephritis. 2. No evidence of hydroureter. No bladder calculus.
--- NOTE | 2025-09-29 19:41 | ECG_ITS ---
Test Date: 2025-09-29 19:44:26 Measurements Intervals [place] Rate: 101 P: 49 [place]: 182 QRS: -13 QRSD: 92 T: 78 QT: 358 QTc: 464 Interpretive Statements SINUS TACHYCARDIA POSSIBLE LEFT ATRIAL ENLARGEMENT [-0.1mV P-WAVE IN V1/V2] NONSPECIFIC ST & T-WAVE ABNORMALITY Electronically Signed On 09-29-2025 20:35:58 [facility] POST DELIVERY by Rama Yeung M.D.
--- NOTE | 2025-09-29 19:55 | ED.GENADULT ---
HPI - General Adult General Chief complaint: Urogenital-Male Stated complaint: chest pain Time Seen by Provider: 09/29/25 19:49 Source: patient and EMS Mode of arrival: EMS Limitations: no limitations History of Present Illness HPI narrative: 44 years old white male came to the ED by ambulance from home complaining of nausea, vomiting, followed by trouble breathing started yesterday got worse today. On arrival to the ED complaining of right flank pain started 4 hours prior to arrival. Worse with movement, Patient is not able to talk because of the severity of pain. No family member at the bedside. History of diabetes hypertension COPD deep vein thrombosis on Xarelto, mitral valve early breast min x2 Related Data Home Medications ?Medication ?Instructions ?Recorded ?Confirmed ?Last Taken ?Type gabapentin 300 mg capsule 400 mg PO QID PRN Muscle Pain 04/27/20 05/14/25 05/13/25 21:00 History atorvastatin 80 mg tablet 40 mg PO DAILY 03/23/23 05/14/25 05/13/25 History sertraline 100 mg tablet 150 mg PO HS 03/23/23 05/14/25 05/13/25 21:00 History buspirone 15 mg tablet 15 mg PO DAILY PRN anxiey 09/18/23 05/14/25 Unknown History aspirin 81 mg chewable tablet 1 tablet PO DAILY 03/28/25 05/14/25 05/13/25 09:00 History carvedilol 25 mg tablet 25 mg PO Q12H 03/28/25 05/14/25 05/13/25 21:00 History ergocalciferol (vitamin D2) 1,250 1,250 mcg PO WEEKLY 03/28/25 05/14/25 05/08/25 History mcg (50,000 unit) capsule folic acid 1 mg tablet 1 mg PO DAILY 03/28/25 05/14/25 05/13/25 09:00 History hydralazine 25 mg tablet 25 mg PO DAILY 03/28/25 05/14/25 05/13/25 09:00 History losartan 50 mg tablet 50 mg PO DAILY 03/28/25 05/14/25 05/13/25 09:00 History pantoprazole 40 mg tablet,delayed 40 mg PO Q12H 03/28/25 05/14/25 05/13/25 09:00 History release rivaroxaban 20 mg tablet (Xarelto) 20 mg PO QPM 03/28/25 05/14/25 05/13/25 21:00 History zolpidem 10 mg tablet 10 mg PO QHS 03/28/25 05/14/25 05/13/25 21:00 History ondansetron 4 mg disintegrating 4 mg translingual Q8H PRN nausea 05/14/25 05/14/25 05/13/25 09:18 History tablet and vomiting 4 mg tizanidine 2 mg tablet 2 mg PO Q6H PRN muscle spasticity 05/14/25 05/14/25 05/13/25 09:00 History 2 mg Allergies Allergy/AdvReac Type Severity Reaction Status Date / Time tramadol AdvReac Hallucinati Verified 05/14/25 15:40 ng Review of Systems Review of Systems: All systems reviewed & are unremarkable except as noted in HPI and below PMFSH Past Medical History Medical History Psoriasis Eczema Hepatic steatosis Esophagitis with gastritis Chronic kidney disease, stage 3b With baseline creatinine ranging between 1.45 and 1.6 Diabetic nephropathy Hyperlipidemia Mitral regurgitation Diabetic neuropathy DM2 (diabetes mellitus, type 2) Now diet controlled due to 200 lb weight loss previously was insulin-dependent HTN (hypertension) with goal to be determined Kidney stones COPD (chronic obstructive pulmonary disease) Depression with anxiety History of COPD History of hypertension Surgical History Surgical History History of amputation of right great toe Partial amputation of right great toe 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 Patient had a metal mitral valve replacement place in 2022 and had 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 with secondary tissue valve replacement within 2 weeks of original procedure H/O tooth extraction History of lithotripsy (~2019) Right kidney History of cardiac catheterization 2013, no coronary artery disease with repeat heart catheterization 2022 with placement of 2 stents Family History Family History Mother Cerebrovascular accident Hypertension Depression Father Diabetes mellitus Heart disease Cancer before age 60 Acute myocardial infarction Grandparent Heart disease COPD (chronic obstructive pulmonary disease) Kidney disease Social History Social History Social History: The patient is and lives with his He has 3 children. 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 He used to smoke 2-3 packs of cigarettes per day but quit smoking in 2022 when he had his mitral valve replaced. He denies any alcohol. He uses marijuana. Code status: Full code Surrogate decision maker: Malia () Smoking packs per day: 2 Smoking cigarettes per day: 40.0 Years smoked: 30 Smoking pack-years: 60.00 Smoking status: Former smoker Tobacco type: cigarettes Second hand tobacco smoke exposure: No Alcohol intake: never Substance use: former Substance use type: does not use Last use: 1 month ago Do You Feel Safe in your Home?: Yes Lack of Transportation: No Lack of Food: Never True Current Housing: I Have Housing Concerned About Future Housing: No Difficulty Paying Gas/Electric Bills: No Difficulty Paying for Meds: No Currently Unemployed: No Education: Trade/Vocational Certificate Difficulty w/ Childcare or Family Care: No Gender identity (if verbalized by the patient): Male Spiritual care concerns: No Exam Narrative: General appearance: Well-developed, well-nourished, looks in pain Skin: Normal color Head: Normocephalic, nontraumatic Chest and respiratory: Airway patent, no respiratory distress, no accessory muscle use Heart: Regular rate/rhythm Abdomen: Soft, severe tenderness right flank area, no organomegaly, quiet bowel sounds Musculoskeletal: Normal range of motion, nontender back Neurologic: Alert, in pain Course Vital Signs Vital signs: Vital Signs Temperature 36.8 C 09/29/25 19:41 Pulse Rate 101 H 09/29/25 19:41 Respiratory Rate 25 H 09/29/25 19:41 Blood Pressure 184/107 H 09/29/25 19:41 Pulse Oximetry 100 09/29/25 19:41 Oxygen Delivery Room Air 09/29/25 19:41 Temperature 36.8 C 09/29/25 19:41 Pulse Rate 94 09/29/25 22:16 Respiratory Rate 15 09/29/25 22:16 Blood Pressure 175/95 H 09/29/25 22:16 Pulse Oximetry 93 09/29/25 22:16 Oxygen Delivery Room Air 09/29/25 20:00 Medical Decision Making [facility] Narrative Medical decision making narrative: Patient came with nausea vomiting, right flank pain started yesterday Vital signs showing blood pressure 184/107, heart rate 101, respiration 25 otherwise within normal limit Physical examination showing restless patient, moaning and screaming, holding right flank area, Differential diagnosis include kidney stone, urinary tract infection, pneumonia, diverticulitis, colitis, electrolyte imbalance, dehydration Blood workup today includes CBC, CMP, lipase, troponin, lactic acid, CRP showed WBC 11.6, PT 16.9, BUN 29, creatinine 1.7, troponin 2.04 URINALYSIS SHOWED NO EVIDENCE OF INFECTION Chest x-ray showed possible bilateral basal pneumonia CT abdomen and pelvis with IV contrast showed 10 mm calculus in the right kidney lower ronak mild prominence of right renal pelvis, mild perinephric stranding around the kidney suggesting possible pyelonephritis. Differential Diagnosis Differential Diagnosis: As above Vital Signs Vital Signs: Vital Signs Temperature 36.8 C 09/29/25 19:41 Pulse Rate 101 H 09/29/25 19:41 Respiratory Rate 25 H 09/29/25 19:41 Blood Pressure 184/107 H 09/29/25 19:41 Pulse Oximetry 100 09/29/25 19:41 Oxygen Delivery Room Air 09/29/25 19:41 Temperature 36.8 C 09/29/25 19:41 Pulse Rate 94 09/29/25 22:16 Respiratory Rate 15 09/29/25 22:16 Blood Pressure 175/95 H 09/29/25 22:16 Pulse Oximetry 93 09/29/25 22:16 Oxygen Delivery Room Air 09/29/25 20:00 Lab Data 09/29/25 19:47 09/29/25 19:47 Labs: Lab Results 09/29/25 09/29/25 09/29/25 Range/Units 19:47 19:48 21:33 WBC 13.6 H (4.5-10.0) K/mm3 RBC 4.05 L (4.6-6.20) M/mm3 Hgb 11.1 L (14.0-18.0) g/dL Hct 34.6 L (42.0-52.0) % MCV 85.4 (80-100) fl MCH 27.4 (26-34) pg MCHC 32.1 (32-36) g/dl RDW 15.9 H (11.5-14.5) % Plt Count 231 D (150-375) k/mm3 MPV 11.4 H (7.4-10.4) fl Immature Gran % (Auto) 0.5 (0-0.5) % Neut % (Auto) 90.4 H (45.5-73.1) % Lymph % (Auto) 4.9 L (18.3-44.2) % Coos % (Auto) 3.9 (2.6-8.5) % Eos % (Auto) 0.1 (0-4.4) % Baso % (Auto) 0.2 (0.2-1.2) % Lymph # (Auto) 0.66 L (0.9-3.2) K/mm3 Coos # (Auto) 0.5 (0.1-0.6) K/mm3 Eos # (Auto) 0.0 (0-0.3) K/mm3 Baso # (Auto) 0.0 (0.0-0.1) K/mm3 Abs Immat Gran (auto) 0.07 H (0.00-0.031) K/mm3 Absolute Neuts (auto) 12.3 H (1.3-6.7) K/mm3 Absolute Nucleated RBC 0.000 (0.0-0.012) K/mm3 Nucleated RBC % 0.0 (0.0-0.2) % PT 16.0 H 16.9 H (11.1-14.7) Seconds INR 1.3 1.4 APTT 39.5 H 34.6 (22.3-36.8) Seconds Sodium 136 L (137-145) mmol/L Potassium 4.0 (3.4-5.0) mmol/L Chloride 109 H (98-107) mmol/L Carbon Dioxide 14 L (22-30) mmol/L Anion Gap 13 H (4-12) mmol/L BUN 29 H D (9-20) mg/dL Creatinine 1.75 H (0.7-1.3) mg/dL Estim Creat Clear Calc 62 ml/min Estimated GFR 43 L (59 - ) Glucose 151 H (65-110) mg/dL Lactic Acid 3.0 H 1.9 (0.7-2.0) mmol/L Calcium 9.4 (8.4-10.2) mg/dL Total Bilirubin 0.7 (0.2-1.3) mg/dL AST 33 (17-59) U/L ALT 20 (6-50) U/L Alkaline Phosphatase 223 H (38-126) U/L Troponin I 2.040 H* (0.000-0.034) ng/mL C-Reactive Protein 1.8 H (<1.0) mg/dL Total Protein 9.0 H (6.3-8.2) g/dL Albumin 4.5 (3.5-5.1) g/dL Lipase 79 (23-300) U/L Urine Color (Yellow) Urine Appearance (Clear) Urine pH (5.0-9.0) Ur Specific [place] (1.001-1.035) Urine Protein (Negative) mg/dL Urine Glucose (UA) (Negative) mg/dL Urine Ketones (Negative) mg/dL Ur Blood (Man) (Negative) Urine Nitrate (Negative) Urine Bilirubin (Negative) Urine Urobilinogen (<2.0) mg/dL Leukocyte Esterase Rfl (Negative) MARIA VICTORIA/UL Urine RBC (0-2) /hpf Urine WBC (0-3) /hpf Ur Squamous Epith Cells (Few) /hpf Urine Bacteria /hpf Urine Casts Influenza A (RT-PCR) Negative (Negative) Influenza B (RT-PCR) Negative (Negative) RSV (RT-PCR) Negative (Negative) SARS-CoV-2 RNA (RT-PCR) Negative (Negative) 09/29/25 Range/Units 22:23 WBC (4.5-10.0) K/mm3 RBC (4.6-6.20) M/mm3 Hgb (14.0-18.0) g/dL Hct (42.0-52.0) % MCV (80-100) fl MCH (26-34) pg MCHC (32-36) g/dl RDW (11.5-14.5) % Plt Count (150-375) k/mm3 MPV (7.4-10.4) fl Immature Gran % (Auto) (0-0.5) % Neut % (Auto) (45.5-73.1) % Lymph % (Auto) (18.3-44.2) % Coos % (Auto) (2.6-8.5) % Eos % (Auto) (0-4.4) % Baso % (Auto) (0.2-1.2) % Lymph # (Auto) (0.9-3.2) K/mm3 Coos # (Auto) (0.1-0.6) K/mm3 Eos # (Auto) (0-0.3) K/mm3 Baso # (Auto) (0.0-0.1) K/mm3 Abs Immat Gran (auto) (0.00-0.031) K/mm3 Absolute Neuts (auto) (1.3-6.7) K/mm3 Absolute Nucleated RBC (0.0-0.012) K/mm3 Nucleated RBC % (0.0-0.2) % PT (11.1-14.7) Seconds INR APTT (22.3-36.8) Seconds Sodium (137-145) mmol/L Potassium (3.4-5.0) mmol/L Chloride (98-107) mmol/L Carbon Dioxide (22-30) mmol/L Anion Gap (4-12) mmol/L BUN (9-20) mg/dL Creatinine (0.7-1.3) mg/dL Estim Creat Clear Calc ml/min Estimated GFR (59 - ) Glucose (65-110) mg/dL Lactic Acid (0.7-2.0) mmol/L Calcium (8.4-10.2) mg/dL Total Bilirubin (0.2-1.3) mg/dL AST (17-59) U/L ALT (6-50) U/L Alkaline Phosphatase (38-126) U/L Troponin I (0.000-0.034) ng/mL C-Reactive Protein (<1.0) mg/dL Total Protein (6.3-8.2) g/dL Albumin (3.5-5.1) g/dL Lipase (23-300) U/L Urine Color Yellow (Yellow) Urine Appearance Clear (Clear) Urine pH 5.5 (5.0-9.0) Ur Specific [place] 1.020 (1.001-1.035) Urine Protein 3+ H (Negative) mg/dL Urine Glucose (UA) Trace H (Negative) mg/dL Urine Ketones Negative (Negative) mg/dL Ur Blood (Man) 2+ H (Negative) Urine Nitrate Negative (Negative) Urine Bilirubin Negative (Negative) Urine Urobilinogen 0.2 (<2.0) mg/dL Leukocyte Esterase Rfl Negative (Negative) MARIA VICTORIA/UL Urine RBC 11-20 H (0-2) /hpf Urine WBC 0-5 (0-3) /hpf Ur Squamous Epith Cells None seen (Few) /hpf Urine Bacteria None seen /hpf Urine Casts 0-2 Influenza A (RT-PCR) (Negative) Influenza B (RT-PCR) (Negative) RSV (RT-PCR) (Negative) SARS-CoV-2 RNA (RT-PCR) (Negative) ECG Data EKG #1: Attestation: I personally reviewed and interpreted this ECG as follows: ECG completion date: 09/29/25 Interpretation: EKG on arrival showed sinus tachycardia, possible left atrial enlargement, nonspecific ST and T-wave abnormality. EKG #2: Attestation: I personally reviewed and interpreted this ECG as follows: ECG completion date: 09/29/25 Prior ECG tracings: available for review Interpretation: Sinus rhythm, possibly left atrial enlargement, septal myocardial infarction of indeterminate age Critical Care Time Critical Care Time Critical Care Time: Yes Total Critical Care Time: 30 Discharge Plan Discharge Clinical Impression: Pneumonia, Elevated troponin Patient Disposition: Still a Patient Condition: Guarded Prognosis Additional Instructions: Admit to hospitalist Patient Language: Persian Prescriptions: No Action carvedilol 25 mg tablet 25 mg PO Q12H hydralazine 25 mg tablet 25 mg PO DAILY losartan 50 mg tablet 50 mg PO DAILY pantoprazole 40 mg tablet,delayed release (DR/EC) 40 mg PO Q12H Xarelto 20 mg tablet 20 mg PO QPM zolpidem 10 mg tablet 10 mg PO QHS folic acid 1 mg tablet 1 mg PO DAILY ergocalciferol (vitamin D2) 1,250 mcg (50,000 unit) capsule 1,250 mcg PO WEEKLY aspirin 81 mg tablet,chewable 1 tablet PO DAILY gabapentin 300 mg capsule 400 mg PO QID PRN (Reason: Muscle Pain) atorvastatin 80 mg tablet 40 mg PO DAILY sertraline 100 mg tablet 150 mg PO HS Patient Comments: patient taking 200mg buspirone 15 mg tablet 15 mg PO DAILY PRN (Reason: anxiey) tizanidine 2 mg tablet 2 mg PO Q6H PRN (Reason: muscle spasticity) ondansetron 4 mg tablet,disintegrating 4 mg translingual Q8H PRN (Reason: nausea and vomiting) oxycodone 5 mg tablet 5 mg PO Q6H PRN (Reason: pain) Qty: 12 0RF cephalexin 500 mg Capsule 500 mg PO Q6HR Qty: 21 0RF Follow-up/Referrals: PHYSICIAN NOT ON STAFF,NONSTAFF [Non-Staff]
[2025-09-29 20:00] LABS: Hematocrit 34.6 % (42.0-52.0); Hemoglobin 11.1 g/dL (14.0-18.0); Immature Granulocyte Percent A 0.5 % (0-0.5); Lymphocytes Absolute Auto 0.66 K/mm3 (0.9-3.2); Mean Corpuscular HGB Conc 32.1 g/dl (32-36); Mean Corpuscular Hemoglobin 27.4 pg (26-34); Mean Corpuscular Volume 85.4 fl (80-100); Nucleated Red Blood Cells Absolute Auto 0.000 K/mm3 (0.0-0.012); Nucleated Red Blood Cells Perc 0.0 % (0.0-0.2); Platelet Count Result 231 k/mm3 (150-375); Red Blood Count 4.05 M/mm3 (4.6-6.20); White Blood Count 13.6 K/mm3 (4.5-10.0)
[2025-09-29 20:04] LABS: Alanine Aminotransferase 20 U/L (6-50); Albumin Level 4.5 g/dL (3.5-5.1); Alkaline Phosphatase 223 U/L (38-126); Anion Gap 13 mmol/L (4-12); Aspartate Amino Transferase 33 U/L (17-59); Bilirubin,Total 0.7 mg/dL (0.2-1.3); Blood Urea Nitrogen 29 mg/dL (9-20); Calcium 9.4 mg/dL (8.4-10.2); Carbon Dioxide 14 mmol/L (22-30); Chloride 109 mmol/L (98-107); Estimated CRCL calculation 62 ml/min; Estimated Glomerular Filt Rate 43; Glucose 151 mg/dL (65-110); Lipase 79 U/L (23-300); Potassium 4.0 mmol/L (3.4-5.0); Sodium 136 mmol/L (137-145); Total Protein 9.0 g/dL (6.3-8.2)
[2025-09-29] MEDS: ONDANSETRON INJ 4 MG/2 ML VIAL IV PUSH (20:10)
[2025-09-29] MEDS: HYDROmorphone HCL INJ (*CRX) 1 MG/ML SYR 0.5 MG IV PUSH (20:10)
[2025-09-29 20:11] LABS: INR 1.3; Prothrombin Time 16.0 Seconds (11.1-14.7)
[2025-09-29] MEDS: ASPIRIN 81 MG CHEWABLE TABLET 324 MG PO (20:11)
[2025-09-29 20:12] LABS: Partial Thromboplastin Time 39.5 Seconds (22.3-36.8)
[2025-09-29] MEDS: SODIUM CHLORIDE 0.9% IV 1,000 ML 999 ML IV CONT (20:12)
[2025-09-29 20:19] LABS: Troponin I 2.040 ng/mL (0.000-0.034)
--- NOTE | 2025-09-29 20:20 | ECG_ITS ---
Test Date: 2025-09-29 20:26:56 Measurements Intervals [place] Rate: 89 P: 44 AL: 175 QRS: 3 QRSD: 98 T: 75 QT: 391 QTc: 478 Interpretive Statements SINUS RHYTHM POSSIBLE LEFT ATRIAL ENLARGEMENT [-0.1mV P-WAVE IN V1/V2] SEPTAL MYOCARDIAL INFARCTION , OF INDETERMINATE AGE [40+ ms Q WAVE IN V1/V2] Electronically Signed On 09-29-2025 20:36:27 MACHINE SETUP OPERATOR by Rama Yeung M.D.
[2025-09-29 21:51] LABS: INR 1.4; Prothrombin Time 16.9 Seconds (11.1-14.7)
[2025-09-29 21:52] LABS: Partial Thromboplastin Time 34.6 Seconds (22.3-36.8)
[2025-09-29 21:54] LABS: CRP 1.8 mg/dL (<1.0)
[2025-09-29] MEDS: cefTRIAXone 1 GM in SODIUM CHLORIDE 0.9% IV 50 ML 100 ML IVPB (21:54)
[2025-09-29 22:16] LABS: Influenza A QL RT-PCR Negative (Negative); Influenza B QL RT-PCR Negative (Negative); RSV RNA, RT-PCR Negative (Negative); SARS-CoV-2 RNA PCR Negative (Negative)
[2025-09-29] MEDS: AZITHROMYCIN IV 500 MG in SODIUM CHLORIDE 0.9% IV 250 ML IVPB (22:16)
[2025-09-29 22:33] LABS: Add Urine Microscopic? YES; Appearance Urine Clear (Clear); Glucose Urine UA Trace mg/dL (Negative); Leukocyte Esterase Ur Negative LEU/UL (Negative); Nitrate Urine Negative (Negative); Non Pathogenic Casts 0-2; Specific Grav Ur 1.020 (1.001-1.035)
--- NOTE | 2025-09-29 23:33 | WPCEDHO ---
ED Hand Off Checklist All vitals saved:yes IV Site documented:yes All med administrations documented:yes Triage Note Triage Note Patient BIBEMS, coming from home. 09/29/25 19:41 Patient started having nausea, vomiting, chest pain and right flank pain starting at 16:00. 12 lead EKG showed sinus tach, EMS attempted to give 4 baby aspirin but patient vomited medication up . 190/108, 147 BG Allergies tramadol Adverse Reaction (Verified 05/14/25 15:40) Hallucinating Family History (Last Reviewed 09/29/25 @ 22:31 by Ryan Stewart MD) Mother Cerebrovascular accident Hypertension Depression Father Diabetes mellitus Heart disease Cancer Acute myocardial infarction Grandparent Heart disease COPD (chronic obstructive pulmonary disease) Kidney disease Administered/Completed Medications Discontinued Medications Aspirin (Aspirin 81 Mg Chewable Tablet) 324 mg PO ONCE STA Stop: 09/29/25 19:42 Last Admin: 09/29/25 20:11 Dose: 324 mg Documented By: PRINCESS Hydromorphone HCl (Hydromorphone Hcl Inj (*Crx) 1 Mg/Ml Syr) 0.5 mg IV PUSH ONCE STA Stop: 09/29/25 19:57 Last Admin: 09/29/25 20:10 Dose: 0.5 mg Documented By: PRINCESS Sodium Chloride (Normal Saline Iv) 1,000 mls @ 999 mls/hr IV CONT .Q1H1M STA Stop: 09/29/25 20:56 Last Infusion: 09/29/25 20:13 Dose: Infused Documented By: Admin: 09/29/25 20:12 Dose: 999 mls/hr Documented By: PRINCESS Ceftriaxone Sodium 1 gm/ (Sodium Chloride) 50 mls @ 100 mls/hr IVPB ONCE STA Stop: 09/29/25 21:45 Last Infusion: 09/29/25 22:29 Dose: Infused Documented By: Admin: 09/29/25 21:54 Dose: 100 mls/hr Documented By: PRINCESS Azithromycin 500 mg/ Sodium (Chloride) 250 mls @ 250 mls/hr IVPB ONCE ONE Stop: 09/29/25 22:19 Last Admin: 09/29/25 22:16 Dose: 250 mls/hr Documented By: PRINCESS Ondansetron HCl (Ondansetron Inj 4 Mg/2 Ml Vial) 4 mg IV PUSH ONCE STA Stop: 09/29/25 19:57 Last Admin: 09/29/25 20:10 Dose: 4 mg Documented By: PRINCESS Interventions/Assessments IV / Saline Lock, Insert Start: 09/29/25 19:41 Freq: STAT Status: Active Protocol: Document 09/29/25 19:41 [facility] (Rec: 09/29/25 19:46 [facility] [id number]) IV Assessment Peripheral Access Left Antecubital IV Catheter Access Initiated Before Arrival IV Insertion Date 09/29/25 Catheter Gauge 18 IV Site Assessment WNL IV Care and WNL Maintenance IV / Saline Lock, Insert Start: 09/29/25 19:56 Freq: STAT Status: Active Protocol: Document 09/29/25 19:56 [facility] (Rec: 09/29/25 21:15 [facility] [id number]) IV Assessment Peripheral Access Left Antecubital IV Catheter Access Initiated Before Arrival Catheter Gauge 18 IV Site Assessment WNL IV Care and WNL Maintenance PA: Cardiovascular Assessment Start: 09/29/25 19:34 Freq: Status: Active Protocol: Document 09/29/25 20:00 [facility] (Rec: 09/29/25 22:36 [facility] [id number]) Cardiovascular Assessment Cardiovascular Chest Pain,Dizziness,Nausea Symptoms Skin Description Normal Color Heart Sounds Normal Jugular Vein None Distention PA: Genitourinary Assessment Start: 09/29/25 20:01 Freq: Status: Active Protocol: Document 09/29/25 20:00 [facility] (Rec: 09/29/25 22:36 [facility] [id number]) Assessment Genitourinary Flank Pain Symptoms Voiding Method Urinal Urine Color Malia Urine Clear Characteristics PA: Respiratory Assessment Start: 09/29/25 19:34 Freq: Status: Active Protocol: Document 09/29/25 20:00 [facility] (Rec: 09/29/25 22:36 [facility] [id number]) Respiratory Assessment Symptoms None Effort Normal Pattern Regular Depth Normal Chest Expansion Symmetrical Adult Capillary Normal/Less than 2 Seconds Refill Cough Description None Sputum Amount None Oxygen Delivery Oxygen Delivery Room Air Last Vital Signs Temperature 98.2 F 09/29/25 19:41 Pulse Rate 94 09/29/25 22:16 Respiratory Rate 15 09/29/25 22:16 Pulse Oximetry 93 09/29/25 22:16 Blood Pressure 175/95 H 09/29/25 22:16 Blood Pressure Mean 117 09/29/25 22:16 Oxygen Delivery Room Air 09/29/25 20:00 Weight 108 kg 09/29/25 19:41 Last Result - Abnormals Only WBC 13.6 K/mm3 (4.5-10.0) H 09/29/25 19:47 RBC 4.05 M/mm3 (4.6-6.20) L 09/29/25 19:47 Hgb 11.1 g/dL (14.0-18.0) L 09/29/25 19:47 Hct 34.6 % (42.0-52.0) L 09/29/25 19:47 RDW 15.9 % (11.5-14.5) H 09/29/25 19:47 MPV 11.4 fl (7.4-10.4) H 09/29/25 19:47 Neut % (Auto) 90.4 % (45.5-73.1) H 09/29/25 19:47 Lymph % (Auto) 4.9 % (18.3-44.2) L 09/29/25 19:47 Lymph # (Auto) 0.66 K/mm3 (0.9-3.2) L 09/29/25 19:47 Abs Immat Gran (auto) 0.07 K/mm3 (0.00-0.031) H 09/29/25 19:47 Absolute Neuts (auto) 12.3 K/mm3 (1.3-6.7) H 09/29/25 19:47 PT 16.9 Seconds (11.1-14.7) H 09/29/25 21:33 APTT 39.5 Seconds (22.3-36.8) H 09/29/25 19:47 Sodium 136 mmol/L (137-145) L 09/29/25 19:47 Chloride 109 mmol/L (98-107) H 09/29/25 19:47 Carbon Dioxide 14 mmol/L (22-30) L 09/29/25 19:47 Anion Gap 13 mmol/L (4-12) H 09/29/25 19:47 BUN 29 mg/dL (9-20) H D 09/29/25 19:47 Creatinine 1.75 mg/dL (0.7-1.3) H 09/29/25 19:47 Estimated GFR 43 (59-) L 09/29/25 19:47 Glucose 151 mg/dL (65-110) H 09/29/25 19:47 Lactic Acid 3.0 mmol/L (0.7-2.0) H 09/29/25 19:48 Alkaline Phosphatase 223 U/L (38-126) H 09/29/25 19:47 Troponin I 2.040 ng/mL (0.000-0.034) H* 09/29/25 19:47 C-Reactive Protein 1.8 mg/dL (<1.0) H 09/29/25 21:33 Total Protein 9.0 g/dL (6.3-8.2) H 09/29/25 19:47 Urine Protein 3+ mg/dL (Negative) H 09/29/25 22:23 Urine Glucose (UA) Trace mg/dL (Negative) H 09/29/25 22:23 Ur Blood (Man) 2+ (Negative) H 09/29/25 22:23 Urine RBC 11-20 /hpf (0-2) H 09/29/25 22:23 Most Recent Suicide Severity Rating Suicide Severity Rating NO RISK INDICATED 09/29/25 19:41
--- NOTE | 2025-09-29 23:59 | ADMGEN ---
This patient, Robert Dickson, was admitted to IMU Room 213-01 on 09/29/25 at 2355. Patient/family oriented to hospital policies and general routines including ID bracelet, bed and alarms, visiting hours, pain management, procedures, bathroom and other care routines, personal items, smoking policy, room service/diet, and visiting hours. Information on how to activate the Rapid Response Team has been discussed. Patient/Family are encouraged to report perceived risks to care and to ask questions if they do not understand what they are told or what they should do.
[2025-09-30] VITALS (24 sets, daily range): BP systolic 98–116; BP diastolic 56–67; PULSE 57–84; RESP 12–20; TEMP 36.3–37.3; O2SAT 97–100
--- NOTE | 2025-09-30 | ECHO_ITS ---
Patient Info Name: Robert Dickson Age: 44 years : 1980 Gender: Male Ht: 72 in Wt: 209 lbs BSA: 2.21 m2 HR: 63 bpm BP: 103 / 66 mmHg Technical Quality: Good Exam Date: 09/30/2025 8:07 AM Patient Status: I Admit Date: 09/29/2025 Exam Type: CA echo dop color flow w con Complete two-dimensional, color flow and Doppler transthoracic echocardiogram is performed with contrast to opacify the left ventricle and to improve the deliniation of the left ventricle endocardial borders. Staff Referring Physician: Ryan Stewart MD Dba Manager: Magdalena Hernández Attending Provider: Lucas Valderrama MD Contrast/Agitated Saline Contrast/Ag. Saline: Definity Amount: 2.00 ml Summary 1. Left ventricular systolic function is normal, estimated at 30-35. all segments are hypokinetic except basal segments. consider stress induced cmp vs multivessel coronary disease. 2. Left ventricular chamber dimension is mildly enlarged. 3. There is mildly increased left ventricular wall thickness. 4. The left ventricular diastolic function is abnormal. 5. Left atrial chamber dimension is mildly enlarged. 6. Normal appearing bioprosthetic mitral valve. Mean gradient 7 mmhg. Noregurgitation or stenosis. 7. There is mild tricuspid valve regurgitation. 8. Moderate pulmonary hypertension, estimated pulmonary arterial systolic pressure is 44 mmHg. Left Ventricle Left ventricular chamber dimension is mildly enlarged. Left ventricular systolic function is normal, estimated at 30-35. all segments are hypokinetic except basal segments. consider stress induced cmp vs multivessel coronary disease. There is mildly increased left ventricular wall thickness. Left ventricular septal wall motion is normal. The left ventricular diastolic function is abnormal. Right Ventricle Right ventricular chamber dimension is normal. Right ventricular systolic function is normal. Left Atria Left atrial chamber dimension is mildly enlarged. Right Atria Right atrial chamber dimension is normal. Aortic Valve The aortic valve is trileaflet. There is no aortic valve sclerosis. There is no aortic valve stenosis. There is no aortic valve regurgitation. Pulmonic Valve The pulmonic valve is normal. There is no pulmonic valve stenosis. There is no pulmonic regurgitation. Mitral Valve Normal appearing bioprosthetic mitral valve. Mean gradient 7 mmhg. Noregurgitation or stenosis. There is no stenosis of the bioprosthetic mitral valve. There is no regurgitation of the bioprosthetic mitral valve. Tricuspid Valve The tricuspid valve leaflets are normal. There is no significant tricuspid valve stenosis. There is mild tricuspid valve regurgitation. Moderate pulmonary hypertension, estimated pulmonary arterial systolic pressure is 44 mmHg. Pericardium/Pleural The pericardium appears normal. There is no pericardial effusion. Inferior Vena Cava Normal inferior vena cava with >50% collapse upon inspiration consistent with normal right atrial pressure, 5 mmHg. Aorta The aortic root size at the sinus of Valsalva is normal. The prox ascending aorta size is normal. Left Ventricular Outflow Tract Name Value Normal LVOT 2D LVOT Diameter 2.0 cm LVOT Doppler LVOT Peak Velocity 108 cm/s LVOT Peak Gradient 5 mmHg LVOT Mean Gradient 2 mmHg LVOT VTI 23 cm LVOT Stroke Volume 76 ml LVOT CO 4.5 l/min LVOT CI 2.0 l/min/m2 Pulmonic Valve Name Value Normal RVOT Doppler RVOT Peak Velocity 74 cm/s RVOT Peak Gradient 2 mmHg PV Doppler PV Peak Velocity 92 cm/s PV Peak Gradient 3 mmHg Mitral Valve Name Value Normal MV Doppler MV Peak Gradient 14 mmHg MV Mean Gradient 7 mmHg MV Area (Cont Eq VTI) 0.9 cm2 MV Diastolic Function MV E Peak Velocity 168 cm/s MV A Peak Velocity 153 cm/s MV E/A 1.1 MV Decel Time (PW) 472 ms MV Annular TDI MV E/e' (Septal) 34.2 MV E/e' (Lateral) 18.6 MV E/e' (Average) 26.4 Tricuspid Valve Name Value Normal TV Regurgitation Doppler TR Peak Velocity 312 cm/s TR Peak Gradient 39 mmHg Estimated PAP/RSVP RA Pressure 5 mmHg <=5 PA Systolic Pressure 44 mmHg <36 RV Systolic Pressure 44 mmHg <36 Aortic Valve Name Value Normal AV Doppler AV Peak Velocity 143 cm/s AV Peak Gradient 8 mmHg AV Area (Cont Eq Madhav) 2.5 cm2 AV DI (Madhav) 0.75 AV Regurgitation 2D LVOT Area 3.3 cm2 Ventricles Name Value Normal LV Dimensions 2D/MM IVS Diastolic Thickness (2D) 0.9 cm 0.6-1.0 LVID Diastole (2D) 5.7 cm 4.2-5.8 LVIW Diastolic Thickness (2D) 1.3 cm 0.6-1.0 LVID Systole (2D) 4.6 cm 2.5-4.0 LVOT Diameter 2.0 cm LV Mass (2D Cubed) 257.31 g 88.00-224.00 LV Mass Index (2D Cubed) 116 g/m2 49-115 Relative Wall Thickness (2D) 0.45 <=0.42 LV Fractional Shortening/Ejection Fraction 2D/MM LV Fractional Shortening (2D) 19 % 25-43 LV EF (2D Teichholz) 38 % LV Diastolic Volume (4C MOD) 211 ml LV EF (4C MOD) 38 % LV Diastolic Volume (2C MOD) 201 ml LV EF (2C MOD) 31 % LV Diastolic Volume (BP MOD) 209 ml 62-150 LV Diastolic Volume Index (BP MOD) 95 ml/m2 34-74 LV Systolic Volume (BP MOD) 135 ml 21-61 LV Systolic Volume Index (BP MOD) 61 ml/m2 11-31 LV EF (BP MOD) 35 % 52-72 LV Diastolic Length (4C) 10.0 cm LV Systolic Length (4C) 8.9 cm LV Stroke Volume (4C MOD) 79 ml Atria Name Value Normal LA Dimensions LA Volume (4C A-L) 90 ml LA Volume (BP A-L) 99 ml RA Dimensions RA Systolic Major [place] Length (4C) 6.0 cm 2.1-2.7 RA Area (4C) 18.0 cm2 <=18.0 Report Signatures
[2025-09-30] MEDS: ACETAMINOPHEN 325 MG TABLET 650 MG PO (00:48)
--- NOTE | 2025-09-30 01:26 | PM.IMHP ---
H&P: HPI History of Present Illness Date/Time: 09/30/25 01:26 Chief Complaint: Chest pain Narrative: This is a 44-year-old male patient who has a history of diabetes, hyperlipidemia, and coronary artery disease with a history of 2 stents. The patient was brought in by ambulance with complaints of nausea, vomiting ,and he had diffuculty breathing yesterday. He is complaining of right flank pain for 4 hours. His discomfort was worse with movement. His white count was noted to be 13.6. H&H is 11.1 and 34.6 . His sodium was 136, chloride 109, carbon dioxide 14, BUN 29 creatinine 1.75. His creatinine remains the same from previous levels. His GFR is 43 which again was the same as previous. Glucose is 151. His lactic was initially 3.0 and is now 1.9. The patient typically has a slightly elevated troponin. However today his troponin was 2.040 and repeat was 14.3. Cardiology consultation was placed but cardiology had not been notified. The patient is on a beta-loida, aspirin and Xarelto. His C reactive protein was 1.8. Chest x-ray was read as mild cardiomegaly and postoperative changes of the heart. Patchy airspace obesity lung bases right more than left. Possible bilateral pneumonia. Abdomen/pelvis CT was read as a followingMPRESSION: 1. 10 mm calculus in the right kidney lower calyx. Mild prominence of right renal pelvis. Mild perinephric stranding around the kidney, suggesting possible pyelonephritis. 2. No evidence of hydroureter. No bladder calculus. The patient was started azithromycin and Rocephin. The patient was admitted to IMU status for observation on the date of service of 09/30/2025. Review of Systems Constitutional: Constitutional: Reports as per HPI and Reports no additional constitutional complaints Eyes: Eyes: Reports as per HPI and Reports no additional eye complaints ENT: Reports system reviewed and no additional complaints, except as documented and Reports Normal hearing present Cardiovascular: Cardiovascular: Reports no additional cardiovascular complaints Respiratory: Respiratory: Reports as per HPI and Reports no additional respiratory complaints Gastrointestinal: Gastrointestinal: Reports as per HPI and Reports no additional gastrointestinal complaints Musculoskeletal: Musculoskeletal: Reports no additional musculoskeletal complaints Integumentary/Breasts: Skin/Breast: Reports system reviewed and no additional complaints, except as docu Neurologic: Reports system reviewed and no additional complaints, except as documented and Reports Normal hearing present Psychiatric: Psychiatric: Reports no additional psychiatric complaints and Reports as per HPI Hematologic/Lymphatic: Hematologic/Lymphatic: Reports no additional hematologic/lymphatic complaints Allergic/Immunologic: Allergic/Immunologic: Reports no additional allergic/immunologic complaints [facility] Past Medical History Medical History (Updated 09/30/25 @ 18:07 by Lucas Valderrama MD) DVT (deep venous thrombosis) Pneumonia Amputation of toe 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 Psoriasis Eczema Hepatic steatosis Esophagitis with gastritis Chronic kidney disease, stage 3b With baseline creatinine ranging between 1.45 and 1.6 Diabetic nephropathy Hyperlipidemia Mitral regurgitation Diabetic neuropathy DM2 (diabetes mellitus, type 2) Now diet controlled due to 200 lb weight loss previously was insulin-dependent HTN (hypertension) with goal to be determined Kidney stones COPD (chronic obstructive pulmonary disease) Depression with anxiety History of COPD History of hypertension Surgical History Surgical History History of amputation of right great toe Partial amputation of right great toe 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 Patient had a metal mitral valve replacement place in 2022 and had 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 with secondary tissue valve replacement within 2 weeks of original procedure H/O tooth extraction History of lithotripsy (~2019) Right kidney History of cardiac catheterization 2013, no coronary artery disease with repeat heart catheterization 2022 with placement of 2 stents Family History Family History Mother Cerebrovascular accident Hypertension Depression Father Diabetes mellitus Heart disease Cancer before age 60 Acute myocardial infarction Grandparent Heart disease COPD (chronic obstructive pulmonary disease) Kidney disease Social History Social History (Updated 10/01/25 @ 21:30 by Ashly Salas APRN) Social History: The patient is and lives with his He has 3 children. 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 He used to smoke 2-3 packs of cigarettes per day but quit smoking in 2022 when he had his mitral valve replaced. He denies any alcohol. He uses marijuana. Code status: Full code Surrogate decision maker: Malia () Smoking packs per day: 2 Smoking cigarettes per day: 40.0 Years smoked: 30 Smoking pack-years: 60.00 Smoking status: Former smoker Tobacco type: cigarettes Second hand tobacco smoke exposure: No Alcohol intake: never Substance use: current Substance use type: marijuana Last use: 09/16/25 Do You Feel Safe in your Home?: Yes Lack of Transportation: No Lack of Food: Never True Current Housing: I Have Housing Concerned About Future Housing: No Difficulty Paying Gas/Electric Bills: No Difficulty Paying for Meds: No Currently Unemployed: No Education: High School Diploma/GED Difficulty w/ Childcare or Family Care: No Gender identity (if verbalized by the patient): Male Spiritual care concerns: No Meds Home Medications and Allergies Home Medications ?Medication ?Instructions ?Recorded ?Confirmed ?Type gabapentin 300 mg capsule 400 mg PO QID PRN Muscle Pain 04/27/20 09/30/25 History atorvastatin 80 mg tablet 40 mg PO QPM 03/23/23 09/30/25 History sertraline 100 mg tablet 200 mg PO HS 03/23/23 09/30/25 History aspirin 81 mg chewable tablet 1 tablet PO DAILY 03/28/25 09/30/25 History carvedilol 25 mg tablet 25 mg PO Q12H 03/28/25 09/30/25 History ergocalciferol (vitamin D2) 1,250 1,250 mcg PO WEEKLY 03/28/25 09/30/25 History mcg (50,000 unit) capsule folic acid 1 mg tablet 1 mg PO DAILY 03/28/25 09/30/25 History hydralazine 25 mg tablet 25 mg PO DAILY 03/28/25 09/30/25 History losartan 50 mg tablet 50 mg PO DAILY 03/28/25 09/30/25 History pantoprazole 40 mg tablet,delayed 40 mg PO Q12H 03/28/25 09/30/25 History release rivaroxaban 20 mg tablet (Xarelto) 20 mg PO QPM 03/28/25 09/30/25 History zolpidem 10 mg tablet 10 mg PO QHS 03/28/25 09/30/25 History ondansetron 4 mg disintegrating 4 mg translingual Q8H PRN nausea 05/14/25 09/30/25 History tablet and vomiting oxycodone 5 mg tablet 5 mg PO Q6H PRN pain #12 tabs 05/16/25 09/30/25 Rx empagliflozin 10 mg tablet 10 mg PO DAILY 09/30/25 09/30/25 History (Jardiance) metoprolol succinate 25 mg 25 mg PO DAILY 09/30/25 09/30/25 History tablet,extended release 24 hr Allergies Allergy/AdvReac Type Severity Reaction Status Date / Time tramadol AdvReac Hallucinati Verified 09/30/25 00:20 ng Vital Signs Vital Signs - 24 hr 09/29/25 19:41 09/29/25 19:42 09/29/25 19:43 Temperature 98.2 F Pulse Rate 101 H 102 H 102 H Respiratory Rate 25 H 26 H 27 H Blood Pressure 184/107 H 184/107 H Pulse Oximetry 100 100 100 Oxygen Delivery Room Air 09/29/25 19:45 09/29/25 19:46 09/29/25 20:00 Temperature Pulse Rate 100 100 97 Respiratory Rate 27 H 27 H 29 H Blood Pressure 181/103 H Pulse Oximetry 100 100 Oxygen Delivery 09/29/25 20:00 09/29/25 20:01 09/29/25 20:15 Temperature Pulse Rate 96 89 Respiratory Rate 30 H 12 Blood Pressure 156/98 H Pulse Oximetry Oxygen Delivery Room Air 09/29/25 20:16 09/29/25 20:30 09/29/25 20:31 Temperature Pulse Rate 89 90 91 Respiratory Rate 17 21 H 19 Blood Pressure 140/90 129/76 Pulse Oximetry Oxygen Delivery 09/29/25 20:45 09/29/25 20:46 09/29/25 21:11 Temperature Pulse Rate 92 92 94 Respiratory Rate 14 12 19 Blood Pressure 143/79 H 140/84 Pulse Oximetry Oxygen Delivery 09/29/25 21:12 09/29/25 21:15 09/29/25 21:16 Temperature Pulse Rate 93 92 90 Respiratory Rate 18 20 16 Blood Pressure 143/95 H Pulse Oximetry Oxygen Delivery 09/29/25 21:30 09/29/25 21:45 09/29/25 21:55 Temperature Pulse Rate 92 93 94 Respiratory Rate 23 H 23 H 27 H Blood Pressure 169/93 H Pulse Oximetry 90 97 Oxygen Delivery 09/29/25 22:00 09/29/25 22:01 09/29/25 22:15 Temperature Pulse Rate 92 91 94 Respiratory Rate 30 H 32 H 17 Blood Pressure 167/98 H Pulse Oximetry 97 99 94 Oxygen Delivery 09/29/25 22:16 09/29/25 23:50 09/29/25 23:57 Temperature Pulse Rate 94 78 85 Respiratory Rate 15 18 20 Blood Pressure 175/95 H 128/88 130/81 Pulse Oximetry 93 98 99 Oxygen Delivery Exam Const: General: cooperative, comfortable, no acute distress, well developed, awake, Physically active, average body habitus and well nourished Nutritional Appearance: average body habitus and well nourished Orientation/consciousness: oriented to person, oriented to place, oriented to time and patient oriented x3 Limitations: no limitations HENMT: Head: normal to inspection, No palpable skull fracture present, normocephalic, atraumatic and abrasion Eyes: General: appearance normal, both eyes and all related structures Alignment and Position: alignment normal Periorbital: periorbital findings normal Eyelids: eyelids normal Neck: Neck: normal visual inspection, full ROM and no lymphadenopathy Chest: Chest palpation & inspection: normal inspection of the chest Resp: Effort & Inspection: normal respiratory effort Auscultation: clear to auscultation bilaterally Cardio: Palpation: normal PMI Rate: regular rate Rhythm: regular rhythm Heart sounds: S1 normal heart sound present and S2 normal heart sound present GI: Inspection: normal to inspection Auscultation: normal bowel sounds Rectal Exam: deferred Other: CVA tenderness noted to the flank area. Skin: General skin exam: normal color Lesions: no lesions Rashes: no rashes Trauma: no lacerations or abrasions Wounds: no wounds Neuro: General: oriented to person, oriented to place, oriented to time and patient oriented x3 Cranial nerves: Yes Equal, round and reactive pupils present and Yes Normal hearing present Cognition (Neuro): normal cognition Speech: normal speech Motor exam (neuro): 5/5 motor strength present throughout Sensory Exam: normal sensation Extrem: General: normal to inspection Right upper extremity: normal to inspection and shoulder/upper arm Left upper extremity: normal to inspection and shoulder/upper arm Right lower extremity: normal to inspection Left lower extremity: normal to inspection Psych: Appearance: grossly normal Mental Status: mental status grossly normal Speech and movement: Normal speech and movement present Affect: normal affect Attitude: cooperative Thought process: Normal thought process present Thought content: Yes Normal thought content present Insight: Good insight present (Psych) Judgement: Good judgement present (Psych) H&P: Results Labs Labs: Short CBC 09/29/25 Range/Units 19:47 WBC 13.6 H (4.5-10.0) K/mm3 Hgb 11.1 L (14.0-18.0) g/dL Hct 34.6 L (42.0-52.0) % Plt Count 231 D (150-375) k/mm3 BMP 09/29/25 19:47 Sodium 136 L Potassium 4.0 Chloride 109 H Carbon Dioxide 14 L BUN 29 H D Creatinine 1.75 H Glucose 151 H Calcium 9.4 Cardiac Enzymes 09/29/25 Range/Units 19:47 Troponin I 2.040 H* (0.000-0.034) ng/mL Liver Function 09/29/25 Range/Units 19:47 Total Bilirubin 0.7 (0.2-1.3) mg/dL AST 33 (17-59) U/L ALT 20 (6-50) U/L Alkaline Phosphatase 223 H (38-126) U/L Albumin 4.5 (3.5-5.1) g/dL Urine 09/29/25 Range/Units 22:23 Urine Color Yellow (Yellow) Urine Appearance Clear (Clear) Urine pH 5.5 (5.0-9.0) Ur Specific [place] 1.020 (1.001-1.035) Urine Protein 3+ H (Negative) mg/dL Urine Glucose (UA) Trace H (Negative) mg/dL ECG Interpretation: SINUS RHYTHM POSSIBLE LEFT ATRIAL ENLARGEMENT [-0.1mV P WAVE IN V1/V2] Compared to ECG 09/29/2025 20:26:56 Myocardial infarct finding no longer present Imaging CT scan - abdomen: Radiologist's impression: ITS Impressions Chest X-Ray 09/29/25 20:05 IMPRESSION: 1. Mild cardiomegaly and postoperative changes of the heart. 2. Patchy airspace opacity lung bases right more prominent than left. Possible bilateral pneumonia. Abdomen/Pelvis CT 09/29/25 21:17 IMPRESSION: 1. 10 mm calculus in the right kidney lower calyx. Mild prominence of right renal pelvis. Mild perinephric stranding around the kidney, suggesting possible pyelonephritis. 2. No evidence of hydroureter. No bladder calculus. Assessment and Plan Assessment and plan (1) Elevated troponin: Code(s): R79.89 - Other specified abnormal findings of blood chemistry Status: Acute Assessment and Plan: -the patient has a low chronic troponin leak. Previous troponin was normal on 09/28/2023. Today when he came in it was 2.04 with repeat of 14.3. Continue to trend out. No EKG changes have been noted. The patient is already on aspirin, beta-loida, atorvastatin, and Xarelto. -the patient initially came in with complaints of chest pain. However he is complaining of right flank pain for me today. -cardiology has been consulted. Further recommendation per Cardiology. -continue with aspirin, Coreg, and Xarelto. -morphine was also ordered for discomfort. The patient has a tramadol allergy however a states that he can take morphine. He is complaining of right flank pain but not chest pain. -he has a history of coronary artery disease with 2 previous stents. Per nursing staff the patient has been noncompliant with his medication. -an echo has been ordered. -continue atorvastatin -echo was ordered (2) Pyelonephritis: Code(s): N12 - Tubulo-interstitial nephritis, not specified as acute or chronic Status: Acute Assessment and Plan: -the patient is currently on Rocephin. -blood cultures are pending. -continue with pain management. -urine cultures are pending. (3) Community acquired pneumonia: Code(s): J18.9 - Pneumonia, unspecified organism Status: Acute Assessment and Plan: -the patient is on a Zithromax and Rocephin. QTC is 478 please continue to monitor closely -blood cultures and sputum cultures are pending. -his vital signs are stable. -his white count is noted to be 13.6. Please continue to monitor CBC daily. (4) HTN (hypertension) with goal to be determined: Code(s): I10 - Essential (primary) hypertension Status: Chronic Assessment and Plan: -continue with Coreg. The patient's home medication listed metoprolol and Coreg. This would be a dual beta loida. However chose to continue with Coreg and hold off on the metoprolol. -current blood pressure is 130/81. (5) DM2 (diabetes mellitus, type 2): Qualifiers: Diabetes mellitus complication status: with other specified complication Diabetes mellitus fci insulin use: unspecified intermodal dispatcher insulin use status Qualified Code(s): E11.69 - Type 2 diabetes mellitus with other specified complication Code(s): E11.9 - Type 2 diabetes mellitus without complications Status: Acute Assessment and Plan: -continue with Jardiance -continue with atorvastatin -sliding scale insulin with Accu-Cheks AC and HS. -check A1c. (6) Anticoagulant long-term use: Code(s): Z79.01 - intermodal dispatcher (current) use of anticoagulants Status: Acute Assessment and Plan: -the patient is on Xarelto for previous DVT. -his H&H is currently 11.1 and 34.6 which is above his baseline. (7) Chronic kidney disease, stage 3b: Code(s): N18.32 - Chronic kidney disease, stage 3b Status: Acute Assessment and Plan: -the patient continues to be at baseline. -consult Nephrology if worsens. -avoid nephrotoxic medication if able. -the patient is on losartan, continue to monitor daily BMPs (8) COPD (chronic obstructive pulmonary disease): Code(s): J44.9 - Chronic obstructive pulmonary disease, unspecified Status: Chronic Assessment and Plan: -continue with DuoNeb neb however it may interact with Coreg so monitor closely. (9) Depression with anxiety: Code(s): F41.8 - Other specified anxiety disorders Status: Chronic Assessment and Plan: -continue with sertraline. Quality VTE Prophylaxis VTE prophylaxis: pharmacologic ordered
--- NOTE | 2025-09-30 01:47 | ECG_ITS ---
Test Date: 2025-09-30 01:36:33 Measurements Intervals [place] Rate: 78 P: 61 [place]: 169 QRS: -7 QRSD: 92 T: 58 QT: 417 QTc: 478 Interpretive Statements SINUS RHYTHM POSSIBLE LEFT ATRIAL ENLARGEMENT [-0.1mV P WAVE IN V1/V2] Compared to ECG 09/29/2025 20:26:56 Myocardial infarct finding no longer present Electronically Signed On 09-30-2025 06:42:41 ELECTRICAL EQUIPMENT ASSEMBLER by Rama Yeung M.D.
[2025-09-30 02:57] LABS: Troponin I 14.300 ng/mL (0.000-0.034)
[2025-09-30] MEDS: MORPHINE SULFATE (*CRX) 4 MG/ML INJ 2 MG IV PUSH (03:41)
[2025-09-30] MEDS: RIVAROXABAN 20 MG TABLET PO (03:41)
--- NOTE | 2025-09-30 04:47 | ECG_ITS ---
Test Date: 2025-09-30 04:46:16 Measurements Intervals [place] Rate: 72 P: 63 [place]: 171 QRS: 18 QRSD: 90 T: 53 QT: 445 QTc: 488 Interpretive Statements SINUS RHYTHM POSSIBLE LEFT ATRIAL ENLARGEMENT [-0.1mV P WAVE IN V1/V2] PROLONGED QT INTERVAL Compared to ECG 09/30/2025 01:36:33 Prolonged QT interval now present Electronically Signed On 09-30-2025 06:43:01 COMPENSATION ADVISOR by Rama Yeung M.D.
[2025-09-30 05:12] LABS: Hemoglobin A1C 5.5 % (<5.7)
[2025-09-30 05:19] LABS: Magnesium 1.5 mg/dL (1.6-2.3)
[2025-09-30 05:41] LABS: Thyroid Stimulating Hormone Reflex 0.164 uIU/mL (0.465-4.68)
[2025-09-30 05:43] LABS: Troponin I 14.400 ng/mL (0.000-0.034)
[2025-09-30 07:37] LABS: Free T4 Free Thyroxine Reflex 1.04 ng/dL (0.78-2.19)
[2025-09-30] MEDS: IPRATROPIUM 0.5 MG/ALBUTEROL SULFATE 2.5 MG (BASE) AMPUL.NEB 3 ML INHALATION ×2 (07:59→13:25)
[2025-09-30] MEDS: ASPIRIN 81 MG CHEWABLE TABLET PO (09:38)
[2025-09-30] MEDS: EMPAGLIFLOZIN 10 MG TABLET PO (09:38)
[2025-09-30 09:39] LABS: Total Triiodothyronine (T3) 1.56 NG/ML (0.82-1.58)
[2025-09-30] MEDS: LOSARTAN POTASSIUM 50 MG TABLET PO (09:39)
[2025-09-30] MEDS: PANTOPRAZOLE 40 MG TABLET PO ×2 (09:39→21:20)
[2025-09-30] MEDS: TAMSULOSIN HCL 0.4 MG CAPSULE PO (09:39)
[2025-09-30] MEDS: FOLIC ACID 1 MG TABLET PO (09:40)
[2025-09-30] MEDS: oxyCODONE HCL (*CRX) 5 MG TAB IR PO ×2 (09:40→18:15)
[2025-09-30] MEDS: PERFLUTREN LIPID MICROSPHERES 1.5 ML VIAL DILUTED TO 10 ML TOTAL VOLUME IV PUSH (09:54)
--- NOTE | 2025-09-30 09:54 | IVDEFINITY ---
Prior to administration of IV Definity the patient was educated on the risks and benefits of the imaging enhancing agent including potential adverse side effects. The patient verbalized understanding. Allergies were verified. No exclusion criteria were identified and at least one of the following inclusion criteria were met: 1) physician request, 2) patient technically difficult to image (per the [place] [employer] of Echocardiography guidelines of two or more segments not discernable within the apical view), or 3) questionable left ventricular function. ?
--- NOTE | 2025-09-30 10:02 | PM.CNCAR ---
Assessment and Plan Assessment and plan (1) Elevated troponin: Code(s): R79.89 - Other specified abnormal findings of blood chemistry Status: Acute Plan Elevated troponin with history of coronary artery disease. It could be demand ischemia but the degree for the patient's significant and concerning for underlying obstructive coronary artery disease. History of mitral valve replacement redo Dec 2023 (29 Hancok II) Paroxysmal atrial flutter CKD stage 3 Hypertension controlled Sepsis and pyelonephritis Hx fo DVT and PE on OAC Hx of osteomylitis toes Plan Blood culture and evaluation of possible bacteremia Transthoracic echocardiogram d/c xarelto and start Heparin infusion tomorrow Aspirin Left heart catheterization on Thursday Cont ACEI, B-loida and hydralazine History of Present Illness History of Present Illness Consult date/time: 09/30/25 10:02 Reason For Visit: Pneumonia, elevated troponin, renal failure Narrative: 44-year-old male patient presented to the hospital was nausea vomiting generalized weakness associated with discomfort and pain in the right flank and midsternal area. He mentioned midsternal pain was [id number] lasting for seconds precipitated by cough sharp pain. Right flank pain and lasted for several hours aching pain was burning sensation in his urine. He was noted to have leukocytosis with lactic acidosis concerning for sepsis possible pyelonephritis. Patient had cardiac enzyme test that was elevated. Patient history of coronary artery disease and history of mitral valve replacement november 2023 initally with mechanical valev complicated with paravalvular leak and bleeding and redo Dec 2023 with bioprothesis 29 mm Hdz valve. 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 Psoriasis Eczema Hepatic steatosis Esophagitis with gastritis Chronic kidney disease, stage 3b With baseline creatinine ranging between 1.45 and 1.6 Diabetic nephropathy Hyperlipidemia Mitral regurgitation Diabetic neuropathy DM2 (diabetes mellitus, type 2) Now diet controlled due to 200 lb weight loss previously was insulin-dependent HTN (hypertension) with goal to be determined Kidney stones COPD (chronic obstructive pulmonary disease) Depression with anxiety History of COPD History of hypertension Surgical History Surgical History History of amputation of right great toe Partial amputation of right great toe 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 Patient had a metal mitral valve replacement place in 2022 and had 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 with secondary tissue valve replacement within 2 weeks of original procedure H/O tooth extraction History of lithotripsy (~2019) Right kidney History of cardiac catheterization 2013, no coronary artery disease with repeat heart catheterization 2022 with placement of 2 stents Family History Family History Mother Cerebrovascular accident Hypertension Depression Father Diabetes mellitus Heart disease Cancer before age 60 Acute myocardial infarction Grandparent Heart disease COPD (chronic obstructive pulmonary disease) Kidney disease Social History Social History Social History: The patient is and lives with his He has 3 children. 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 He used to smoke 2-3 packs of cigarettes per day but quit smoking in 2022 when he had his mitral valve replaced. He denies any alcohol. He uses marijuana. Code status: Full code Surrogate decision maker: Malia () Smoking packs per day: 2 Smoking cigarettes per day: 40.0 Years smoked: 30 Smoking pack-years: 60.00 Smoking status: Former smoker Tobacco type: cigarettes Second hand tobacco smoke exposure: No Alcohol intake: never Substance use: current Substance use type: marijuana Last use: 09/16/25 Do You Feel Safe in your Home?: Yes Lack of Transportation: No Lack of Food: Never True Current Housing: I Have Housing Concerned About Future Housing: No Difficulty Paying Gas/Electric Bills: No Difficulty Paying for Meds: No Currently Unemployed: No Education: High School Diploma/GED Difficulty w/ Childcare or Family Care: No Gender identity (if verbalized by the patient): Male Spiritual care concerns: No Meds Home Medications and Allergies Home Medications ?Medication ?Instructions ?Recorded ?Confirmed ?Type gabapentin 300 mg capsule 400 mg PO QID PRN Muscle Pain 04/27/20 09/30/25 History atorvastatin 80 mg tablet 40 mg PO QPM 03/23/23 09/30/25 History sertraline 100 mg tablet 200 mg PO HS 03/23/23 09/30/25 History aspirin 81 mg chewable tablet 1 tablet PO DAILY 03/28/25 09/30/25 History carvedilol 25 mg tablet 25 mg PO Q12H 03/28/25 09/30/25 History ergocalciferol (vitamin D2) 1,250 1,250 mcg PO WEEKLY 03/28/25 09/30/25 History mcg (50,000 unit) capsule folic acid 1 mg tablet 1 mg PO DAILY 03/28/25 09/30/25 History hydralazine 25 mg tablet 25 mg PO DAILY 03/28/25 09/30/25 History losartan 50 mg tablet 50 mg PO DAILY 03/28/25 09/30/25 History pantoprazole 40 mg tablet,delayed 40 mg PO Q12H 03/28/25 09/30/25 History release rivaroxaban 20 mg tablet (Xarelto) 20 mg PO QPM 03/28/25 09/30/25 History zolpidem 10 mg tablet 10 mg PO QHS 03/28/25 09/30/25 History ondansetron 4 mg disintegrating 4 mg translingual Q8H PRN nausea 05/14/25 09/30/25 History tablet and vomiting oxycodone 5 mg tablet 5 mg PO Q6H PRN pain #12 tabs 05/16/25 09/30/25 Rx empagliflozin 10 mg tablet 10 mg PO DAILY 09/30/25 09/30/25 History (Jardiance) metoprolol succinate 25 mg 25 mg PO DAILY 09/30/25 09/30/25 History tablet,extended release 24 hr Allergies Allergy/AdvReac Type Severity Reaction Status Date / Time tramadol AdvReac Hallucinati Verified 09/30/25 00:20 ng Vital Signs Vital Signs - 24 hr 09/29/25 19:41 09/29/25 19:42 09/29/25 19:43 Temperature 36.8 C Pulse Rate 101 H 102 H 102 H Respiratory Rate 25 H 26 H 27 H Blood Pressure 184/107 H 184/107 H Pulse Oximetry 100 100 100 Oxygen Delivery Room Air 09/29/25 19:45 09/29/25 19:46 09/29/25 20:00 Temperature Pulse Rate 100 100 97 Respiratory Rate 27 H 27 H 29 H Blood Pressure 181/103 H Pulse Oximetry 100 100 Oxygen Delivery 09/29/25 20:00 09/29/25 20:01 09/29/25 20:15 Temperature Pulse Rate 96 89 Respiratory Rate 30 H 12 Blood Pressure 156/98 H Pulse Oximetry Oxygen Delivery Room Air 09/29/25 20:16 09/29/25 20:30 09/29/25 20:31 Temperature Pulse Rate 89 90 91 Respiratory Rate 17 21 H 19 Blood Pressure 140/90 129/76 Pulse Oximetry Oxygen Delivery 09/29/25 20:45 09/29/25 20:46 09/29/25 21:11 Temperature Pulse Rate 92 92 94 Respiratory Rate 14 12 19 Blood Pressure 143/79 H 140/84 Pulse Oximetry Oxygen Delivery 09/29/25 21:12 09/29/25 21:15 09/29/25 21:16 Temperature Pulse Rate 93 92 90 Respiratory Rate 18 20 16 Blood Pressure 143/95 H Pulse Oximetry Oxygen Delivery 09/29/25 21:30 09/29/25 21:45 09/29/25 21:55 Temperature Pulse Rate 92 93 94 Respiratory Rate 23 H 23 H 27 H Blood Pressure 169/93 H Pulse Oximetry 90 97 Oxygen Delivery 09/29/25 22:00 09/29/25 22:01 09/29/25 22:15 Temperature Pulse Rate 92 91 94 Respiratory Rate 30 H 32 H 17 Blood Pressure 167/98 H Pulse Oximetry 97 99 94 Oxygen Delivery 09/29/25 22:16 09/29/25 23:50 09/29/25 23:57 Temperature 36.9 C Pulse Rate 94 78 85 Respiratory Rate 15 18 20 Blood Pressure 175/95 H 128/88 130/81 Pulse Oximetry 93 98 99 Oxygen Delivery 09/29/25 23:57 09/29/25 23:57 09/30/25 00:00 Temperature Pulse Rate 85 84 84 Respiratory Rate 20 Blood Pressure Pulse Oximetry 99 Oxygen Delivery Room Air 09/30/25 02:00 09/30/25 03:35 09/30/25 03:40 Temperature Pulse Rate 79 79 75 Respiratory Rate 18 Blood Pressure Pulse Oximetry 97 Oxygen Delivery Room Air 09/30/25 04:00 09/30/25 04:00 09/30/25 06:00 Temperature 37.3 C Pulse Rate 79 72 65 Respiratory Rate 18 Blood Pressure 98/67 L Pulse Oximetry 97 Oxygen Delivery 09/30/25 07:58 09/30/25 08:01 09/30/25 08:03 Temperature 36.9 C Pulse Rate 60 61 63 Respiratory Rate 12 14 14 Blood Pressure 103/66 Pulse Oximetry 99 Oxygen Delivery Exam Const: General: comfortable and no acute distress Other: Able to lie flat HENMT: Face/Nose/Sinus: Normal nares present and no epistaxis Mouth: Yes moist mucous membranes Eyes: Sclera: sclerae normal Pupils: Equal, round and reactive pupils present Neck: Neck: supple and no JVD Carotids: no bruits Resp: Auscultation: clear to auscultation bilaterally and lung sounds not diminished Other: No chest wall tenderness Cardio: Rate: regular rate Rhythm: regular rhythm Heart sounds: no gallops, no murmurs and no rubs GI: GI Palp: Yes Soft to palpation and No Tenderness to palpation present (GI) Auscultation: normal bowel sounds Skin: General skin exam: normal color, rashes and/or lesions noted and no erythema Other: Warm Neuro: Cranial nerves: Yes Equal, round and reactive pupils present Speech: normal speech Other: No obvious focal deficit or facial asymmetry Extrem: General: no edema Other: Normal capillary refills Intact distal pulses. Results Labs and Meds 09/29/25 19:47 09/29/25 19:47 Lab results: Cardiac Enzymes 09/29/25 09/30/25 09/30/25 Range/Units 19:47 01:38 01:38 AST 33 (17-59) U/L Troponin I 2.040 H* 14.300 H* D Cancelled (0.000-0.034) ng/mL 09/30/25 Range/Units 04:31 AST (17-59) U/L Troponin I 14.400 H* (0.000-0.034) ng/mL Coagulation 09/29/25 09/29/25 Range/Units 19:47 21:33 PT 16.0 H 16.9 H (11.1-14.7) Seconds APTT 39.5 H 34.6 (22.3-36.8) Seconds CBC 09/29/25 Range/Units 19:47 WBC 13.6 H (4.5-10.0) K/mm3 RBC 4.05 L (4.6-6.20) M/mm3 Hgb 11.1 L (14.0-18.0) g/dL Hct 34.6 L (42.0-52.0) % Plt Count 231 D (150-375) k/mm3 Lymph # (Auto) 0.66 L (0.9-3.2) K/mm3 Lee # (Auto) 0.5 (0.1-0.6) K/mm3 Eos # (Auto) 0.0 (0-0.3) K/mm3 Baso # (Auto) 0.0 (0.0-0.1) K/mm3 Comprehensive Metabolic Panel 09/29/25 Range/Units 19:47 Sodium 136 L (137-145) mmol/L Potassium 4.0 (3.4-5.0) mmol/L Chloride 109 H (98-107) mmol/L Carbon Dioxide 14 L (22-30) mmol/L BUN 29 H D (9-20) mg/dL Creatinine 1.75 H (0.7-1.3) mg/dL Glucose 151 H (65-110) mg/dL Calcium 9.4 (8.4-10.2) mg/dL AST 33 (17-59) U/L ALT 20 (6-50) U/L Alkaline Phosphatase 223 H (38-126) U/L Total Protein 9.0 H (6.3-8.2) g/dL Albumin 4.5 (3.5-5.1) g/dL Intake and Output 09/29/25 09/30/25 09/30/25 23:59 07:59 15:59 Intake Total 1300 400 120 Balance 1300 400 120 Intake: IV 1300 Sodium Chloride 0.9% IV 1,000 1000 ml @ 999 mls/hr IV CONT .Q1H1M STA Rx#:[id number] Azithromycin IV 500 mg In 250 Sodium Chloride 0.9% IV 250 ml @ 250 mls/hr IVPB ONCE ONE Rx#: [id number] cefTRIAXone 1 gm In Sodium 50 Chloride 0.9% IV 50 ml @ 100 mls/hr IVPB ONCE STA Rx#: [id number] Oral 400 120 Other: # Unmeasured Voids 1 1 Number of Bowel Movements Today 0 Patient Weight 09/30/25 23:59 Weight 95 kg
--- NOTE | 2025-09-30 15:11 | PC.NURSE ---
On 09/30/25, the student, [Deedee Ellis ], provided care and completed [facility] documentation on this patient. I have reviewed the student's documentation and agree with the findings.
--- NOTE | 2025-09-30 15:16 | P.PNIM_ITS ---
Progress Note: A&P Assessment and Plan (1) Non-ST elevation TX (NSTEMI): Code(s): I21.4 - Non-ST elevation (NSTEMI) myocardial infarction Status: Acute Assessment and Plan: Patient presents to the ED by ambulance from home complaining of nausea, vomiting, SOB and right flank pain. Troponin 2.04 on admission and climbed to 14.4. EKG showing sinus tachycardia (101), possible LAE and nonspecific ST-T wave c hanges. Repeat EKG showing similar findings. Echo showing EF 30-35% with all segments hypokinetic except basal segments (consider stress induced vs multivessel disease), LV enlarged, diastolic dysfun ction, normal appearing bioprosthetic valve, mod pulm HTN. Patient is already on aspirin, beta-loida, atorvastatin, and Xarelto on admission Possible multi-vessel disease versus takotsubo. Cardiology consulted. Unclear if patient had LHC prior to his mitral valve surgery in Nov 2023. Continue with aspirin, atorvastatin and carvedilol. He remains on Xarelto. (2) Pyelonephritis: Code(s): N12 - Tubulo-interstitial nephritis, not specified as acute or chronic Status: Acute Assessment and Plan: CT imaging showing mild perinephri stranding around right kidney. UA showing 3+ protein, tr glucose, 2+ bld, Neg LE/N, 11-20 RBC and no WBC. WBC 13.6. The patient is having right CVA tenderness present on admission Cultures obtained and Rocephin started. Follow up Cx results. Continue abx for now. (3) Community acquired pneumonia: Code(s): J18.9 - Pneumonia, unspecified organism Status: Acute Assessment and Plan: CXR showing mild CMG and post-op changes with patchy airspace opacities bilateral (R>L) lung bases. Presumed PNA so started on Zithromax and Rocephin. CT Abd showing basilar ground glass opacities due to pulmonary edema c/w CHF Cultures obtained. QTC is 478. WBC 13.6. Suspect CHF related to low EF and and less likely PNA. Change Azithro to Doxy. Check BNP. Check MRSA nasal swab (4) CHF (congestive heart failure): Code(s): I50.9 - Heart failure, unspecified Status: Acute Assessment and Plan: As above Suspect acute systolic and diastolic CHF. Repeat CXR tomorrow. Monitor (5) HTN (hypertension) with goal to be determined: Code(s): I10 - Essential (primary) hypertension Status: Chronic Assessment and Plan: Patient's blood pressure was reviewed on 09/30 Home medication list: Carvedilol, hydralazine, losartan, metoprolol (hopefully pt not taking two BB) Currenlty on hydralazine, losartan, carvedilol Blood pressure remains well controlled. Will continue current medications except stop hydralazine. 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 The patient's blood glucose was reviewed on 09/30 Glucose remains well controlled. Home medications: Empagliflozin Continue AccuCheks covering with sliding scale. Hypoglycemia protocol available as needed. 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 Plan to stop Xarelto tomorrow and start heparin drip. (8) Chronic kidney disease, stage 3b: Code(s): N18.32 - Chronic kidney disease, stage 3b Status: Acute Assessment and Plan: Patient with normal renal function in 2022. Creatinine earlier this year runs 1.4-1.7 range. Creatinine 1.7 on admission. 3+ protein noted Avoid nephrotoxic medication if able. Check urine studies. Monitor urine output, renal function and electrolytes. (9) COPD (chronic obstructive pulmonary disease): Code(s): J44.9 - Chronic obstructive pulmonary disease, unspecified Status: Chronic Assessment and Plan: Stable. Lungs clear. Remains on room air. Continue with DuoNeb a change to p.r.n. (10) Depression with anxiety: Code(s): F41.8 - Other specified anxiety disorders Status: Chronic Assessment and Plan: Mood stable. Zoloft continued. Change Ambien to p.r.n.. Plan DVT prophylaxis -Xarelto Code status -full Subjective Date/time seen: 09/30/25 15:16 Interval history: 44yo male with DM, HLD, CKD, pAFib and VTE on Xarelto here for complaints of nausea, vomiting and trouble breathing. 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 He did not require bypass. Patient is feeling better. No chest pain. Still has the right-sided mid back pain but this seems more chronic. It is tender to touch this area. Does not wear oxygen at home. He does not have sleep apnea that he is aware of. He has not had any ischemic evaluation since his heart surgery in December 2023. Exam Narrative: AF 98.4 106/63 62 15 97% ra Gen - NARD Chest - CTA bilaterally, nml RR CV - RRR S1/S2. Tele showing no significant dysrhythmias Abd - Soft, NT/ND, Positive BS Back -right paraspinal muscular tenderness tender to palpate. No overlying rash. Ext - No pedal edema. 2+ DP pulses bilaterally. 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 Neuro - Alert and appropriate Psych - Nml mood and affect Skin - Warm and dry Objective Data Vital Signs Vital Signs: Vital Signs - 24 hr 09/29/25 19:41 09/29/25 19:42 09/29/25 19:43 Temperature 98.2 F Pulse Rate 101 H 102 H 102 H Respiratory Rate 25 H 26 H 27 H Blood Pressure 184/107 H 184/107 H Pulse Oximetry 100 100 100 Oxygen Delivery Room Air 09/29/25 19:45 09/29/25 19:46 09/29/25 20:00 Temperature Pulse Rate 100 100 97 Respiratory Rate 27 H 27 H 29 H Blood Pressure 181/103 H Pulse Oximetry 100 100 Oxygen Delivery 09/29/25 20:00 09/29/25 20:01 09/29/25 20:15 Temperature Pulse Rate 96 89 Respiratory Rate 30 H 12 Blood Pressure 156/98 H Pulse Oximetry Oxygen Delivery Room Air 09/29/25 20:16 09/29/25 20:30 09/29/25 20:31 Temperature Pulse Rate 89 90 91 Respiratory Rate 17 21 H 19 Blood Pressure 140/90 129/76 Pulse Oximetry Oxygen Delivery 09/29/25 20:45 09/29/25 20:46 09/29/25 21:11 Temperature Pulse Rate 92 92 94 Respiratory Rate 14 12 19 Blood Pressure 143/79 H 140/84 Pulse Oximetry Oxygen Delivery 09/29/25 21:12 09/29/25 21:15 09/29/25 21:16 Temperature Pulse Rate 93 92 90 Respiratory Rate 18 20 16 Blood Pressure 143/95 H Pulse Oximetry Oxygen Delivery 09/29/25 21:30 09/29/25 21:45 09/29/25 21:55 Temperature Pulse Rate 92 93 94 Respiratory Rate 23 H 23 H 27 H Blood Pressure 169/93 H Pulse Oximetry 90 97 Oxygen Delivery 09/29/25 22:00 09/29/25 22:01 09/29/25 22:15 Temperature Pulse Rate 92 91 94 Respiratory Rate 30 H 32 H 17 Blood Pressure 167/98 H Pulse Oximetry 97 99 94 Oxygen Delivery 09/29/25 22:16 09/29/25 23:50 09/29/25 23:57 Temperature 98.4 F Pulse Rate 94 78 85 Respiratory Rate 15 18 20 Blood Pressure 175/95 H 128/88 130/81 Pulse Oximetry 93 98 99 Oxygen Delivery 09/29/25 23:57 09/29/25 23:57 09/30/25 00:00 Temperature Pulse Rate 85 84 84 Respiratory Rate 20 Blood Pressure Pulse Oximetry 99 Oxygen Delivery Room Air 09/30/25 02:00 09/30/25 03:35 09/30/25 03:40 Temperature Pulse Rate 79 79 75 Respiratory Rate 18 Blood Pressure Pulse Oximetry 97 Oxygen Delivery Room Air 09/30/25 04:00 09/30/25 04:00 09/30/25 06:00 Temperature 99.1 F Pulse Rate 79 72 65 Respiratory Rate 18 Blood Pressure 98/67 L Pulse Oximetry 97 Oxygen Delivery 09/30/25 07:58 09/30/25 08:00 09/30/25 08:00 Temperature 98.4 F Pulse Rate 60 60 Respiratory Rate 12 Blood Pressure 103/66 Pulse Oximetry 99 Oxygen Delivery Room Air 09/30/25 08:01 09/30/25 08:03 09/30/25 10:00 Temperature Pulse Rate 61 63 67 Respiratory Rate 14 14 Blood Pressure Pulse Oximetry Oxygen Delivery 09/30/25 11:50 09/30/25 12:00 09/30/25 12:00 Temperature 98.4 F Pulse Rate 60 57 L Respiratory Rate 20 Blood Pressure 106/63 Pulse Oximetry 97 Oxygen Delivery Room Air 09/30/25 13:25 09/30/25 13:30 09/30/25 14:00 Temperature Pulse Rate 61 60 62 Respiratory Rate 15 15 Blood Pressure Pulse Oximetry Oxygen Delivery Intake/Output Intake/Output: Intake & Output 09/27/25 09/28/25 09/29/25 09/30/25 23:59 23:59 23:59 23:59 Intake Total 1300 520 Output Total 700 Balance 1300 -180 Meds/Results Medications: Active Medications Generic Name Dose Route Start Last Admin Trade Name Freq PRN Reason Stop Dose Admin Acetaminophen 650 mg 09/29/25 22:33 09/30/25 00:48 Acetaminophen 325 Mg Tablet PO 650 mg Q4H PRN Administration Mild Pain (1-3) or Fever Albuterol/Ipratropium 3 ml 09/30/25 08:00 09/30/25 13:25 Ipratropium 0.5 Mg/Albuterol Sulfate 2.5 Mg (Base) Ampul.Neb 3 Ml INHALATION 3 ml Q6HRT REYNA Administration Aspirin 81 mg 09/30/25 08:00 09/30/25 09:38 Aspirin 81 Mg Chewable Tablet PO 81 mg DAILY@0800 REYNA Administration Atorvastatin Calcium 40 mg 09/30/25 21:00 Atorvastatin 40 Mg Tablet PO QHS REYNA Carvedilol 25 mg 09/30/25 03:27 09/30/25 03:40 Carvedilol 25 Mg Tablet PO 25 mg Q12HR REYNA Administration Dextrose 12.5 gm 09/30/25 03:47 Dextrose 50% 25 Gm/50 Ml Syringe IV PUSH PRN PRN Hypoglycemia Protocol Empagliflozin 10 mg 09/30/25 09:00 09/30/25 09:38 Empagliflozin 10 Mg Tablet PO 10 mg DAILY REYNA Administration Folic Acid 1 mg 09/30/25 09:00 09/30/25 09:40 Folic Acid 1 Mg Tablet PO 1 mg DAILY REYNA Administration Gabapentin 400 mg 09/30/25 02:29 Gabapentin 400 Mg Capsule PO QID PRN Muscle Pain Glucagon 1 mg 09/30/25 03:47 Glucagon For Inj 1 Mg Vial IM PRN PRN Hypoglycemia Protocol Glucose 15 gm 09/30/25 03:47 Glucose Oral Gel 15 Gm Of Glucse In 37.5 Gm Tube PO PRN PRN Hypoglycemia Protocol Hydralazine HCl 25 mg 09/30/25 09:00 09/30/25 09:40 Hydralazine Hcl 25 Mg Tablet PO 25 mg DAILY [facility] Administration Ceftriaxone Sodium 1 gm/ 50 mls @ 100 mls/hr 09/30/25 21:00 Sodium Chloride IVPB Q24H [facility] Azithromycin 500 mg/ Sodium 250 mls @ 250 mls/hr 09/30/25 22:00 Chloride IVPB 10/03/25 22:59 Q24H REYNA Dextrose 1,000 mls @ 100 mls/hr 09/30/25 03:47 Dextrose 5% 1,000 Ml IVPB PRN PRN Hypoglycemia Protocol Insulin Aspart 2 - 5 units 09/30/25 08:00 09/30/25 14:44 Insulin Aspart (*Bkc) 100 Units/Ml SUB-Q Not Given TIDWM [facility] Protocol Losartan Potassium 50 mg 09/30/25 09:00 09/30/25 09:39 Losartan Potassium 50 Mg Tablet PO 50 mg DAILY [facility] Administration Morphine Sulfate 2 mg 09/30/25 02:28 09/30/25 03:41 Morphine Sulfate (*Crx) 4 Mg/Ml Inj IV PUSH 2 mg Q4H PRN Administration Pain Rated 7-10 Oxycodone HCl 5 mg 09/30/25 02:29 09/30/25 09:40 Oxycodone Hcl (*Crx) 5 Mg Tab Ir PO 5 mg Q6H PRN Administration Pain 7-10 Pantoprazole Sodium 40 mg 09/30/25 09:00 09/30/25 09:39 Pantoprazole 40 Mg Tablet PO 40 mg Q12HR REYNA Administration Rivaroxaban 20 mg 09/30/25 02:30 09/30/25 03:41 Rivaroxaban 20 Mg Tablet PO 20 mg DAILY@1700 [facility] Administration Sertraline HCl 200 mg 09/30/25 21:00 Sertraline Hcl 50 Mg Tablet PO [facility] Tamsulosin HCl 0.4 mg 09/30/25 09:00 09/30/25 09:39 Tamsulosin Hcl 0.4 Mg Capsule PO 0.4 mg QAM [facility] Administration Zolpidem Tartrate 10 mg 09/30/25 21:00 Zolpidem Tartrate (*Crx) 5 Mg Tablet PO QHS [facility] Radiology Results: ITS Impressions Chest X-Ray 09/29/25 20:05 IMPRESSION: 1. Mild cardiomegaly and postoperative changes of the heart. 2. Patchy airspace opacity lung bases right more prominent than left. Possible bilateral pneumonia. Abdomen/Pelvis CT 09/29/25 21:17 IMPRESSION: 1. 10 mm calculus in the right kidney lower calyx. Mild prominence of right renal pelvis. Mild perinephric stranding around the kidney, suggesting possible pyelonephritis. 2. No evidence of hydroureter. No bladder calculus. Labs Labs: Laboratory Results - last 24 hr 09/29/25 09/29/25 09/29/25 19:47 19:48 21:33 WBC 13.6 H RBC 4.05 L Hgb 11.1 L Hct 34.6 L MCV 85.4 MCH 27.4 MCHC 32.1 RDW 15.9 H Plt Count 231 D MPV 11.4 H Immature Gran % (Auto) 0.5 Neut % (Auto) 90.4 H Lymph % (Auto) 4.9 L [place] % (Auto) 3.9 Eos % (Auto) 0.1 Baso % (Auto) 0.2 Lymph # (Auto) 0.66 L [place] # (Auto) 0.5 Eos # (Auto) 0.0 Baso # (Auto) 0.0 Abs Immat Gran (auto) 0.07 H Absolute Neuts (auto) 12.3 H Absolute Nucleated RBC 0.000 Nucleated RBC % 0.0 PT 16.0 H 16.9 H INR 1.3 1.4 APTT 39.5 H 34.6 Sodium 136 L Potassium 4.0 Chloride 109 H Carbon Dioxide 14 L Anion Gap 13 H BUN 29 H D Creatinine 1.75 H Estim Creat Clear Calc 62 Estimated GFR 43 L Glucose 151 H POC Capillary Glucose Hemoglobin A1c Lactic Acid 3.0 H 1.9 Calcium 9.4 Magnesium Total Bilirubin 0.7 AST 33 ALT 20 Alkaline Phosphatase 223 H Troponin I 2.040 H* C-Reactive Protein 1.8 H Total Protein 9.0 H Albumin 4.5 Lipase 79 TSH (Reflex) Free T4 Total T3 Urine Color Urine Appearance Urine pH Ur Specific [place] Urine Protein Urine Glucose (UA) Urine Ketones Ur Blood (Man) Urine Nitrate Urine Bilirubin Urine Urobilinogen Leukocyte Esterase Rfl Urine RBC Urine WBC Ur Squamous Epith Cells Urine Bacteria Urine Casts Influenza A (RT-PCR) Negative Influenza B (RT-PCR) Negative Legionella Source Legionella Culture Legionella Cult Status RSV (RT-PCR) Negative SARS-CoV-2 RNA (RT-PCR) Negative 09/29/25 09/30/25 09/30/25 22:23 01:38 01:38 WBC RBC Hgb Hct MCV MCH MCHC RDW Plt Count MPV Immature Gran % (Auto) Neut % (Auto) Lymph % (Auto) [place] % (Auto) Eos % (Auto) Baso % (Auto) Lymph # (Auto) [place] # (Auto) Eos # (Auto) Baso # (Auto) Abs Immat Gran (auto) Absolute Neuts (auto) Absolute Nucleated RBC Nucleated RBC % PT INR APTT Sodium Potassium Chloride Carbon Dioxide Anion Gap BUN Creatinine Estim Creat Clear Calc Estimated GFR Glucose POC Capillary Glucose Hemoglobin A1c Lactic Acid Calcium Magnesium Total Bilirubin AST ALT Alkaline Phosphatase Troponin I 14.300 H* D Cancelled C-Reactive Protein Total Protein Albumin Lipase TSH (Reflex) Free T4 Total T3 Urine Color Yellow Urine Appearance Clear Urine pH 5.5 Ur Specific [place] 1.020 Urine Protein 3+ H Urine Glucose (UA) Trace H Urine Ketones Negative Ur Blood (Man) 2+ H Urine Nitrate Negative Urine Bilirubin Negative Urine Urobilinogen 0.2 Leukocyte Esterase Rfl Negative Urine RBC 11-20 H Urine WBC 0-5 Ur Squamous Epith Cells None seen Urine Bacteria None seen Urine Casts 0-2 Influenza A (RT-PCR) Influenza B (RT-PCR) Legionella Source Legionella Culture Legionella Cult Status RSV (RT-PCR) SARS-CoV-2 RNA (RT-PCR) 09/30/25 09/30/25 09/30/25 04:31 08:04 09:49 WBC RBC Hgb Hct MCV MCH MCHC RDW Plt Count MPV Immature Gran % (Auto) Neut % (Auto) Lymph % (Auto) [place] % (Auto) Eos % (Auto) Baso % (Auto) Lymph # (Auto) [place] # (Auto) Eos # (Auto) Baso # (Auto) Abs Immat Gran (auto) Absolute Neuts (auto) Absolute Nucleated RBC Nucleated RBC % PT INR APTT Sodium Potassium Chloride Carbon Dioxide Anion Gap BUN Creatinine Estim Creat Clear Calc Estimated GFR Glucose POC Capillary Glucose 139 H Hemoglobin A1c 5.5 Lactic Acid Calcium Magnesium 1.5 L Total Bilirubin AST ALT Alkaline Phosphatase Troponin I 14.400 H* C-Reactive Protein Total Protein Albumin Lipase TSH (Reflex) 0.164 L Free T4 1.04 Total T3 1.56 Urine Color Urine Appearance Urine pH Ur Specific [place] Urine Protein Urine Glucose (UA) Urine Ketones Ur Blood (Man) Urine Nitrate Urine Bilirubin Urine Urobilinogen Leukocyte Esterase Rfl Urine RBC Urine WBC Ur Squamous Epith Cells Urine Bacteria Urine Casts Influenza A (RT-PCR) Influenza B (RT-PCR) Legionella Source Cancelled Legionella Culture Cancelled Legionella Cult Status Cancelled RSV (RT-PCR) SARS-CoV-2 RNA (RT-PCR) 09/30/25 11:10 WBC RBC Hgb Hct MCV MCH MCHC RDW Plt Count MPV Immature Gran % (Auto) Neut % (Auto) Lymph % (Auto) [place] % (Auto) Eos % (Auto) Baso % (Auto) Lymph # (Auto) [place] # (Auto) Eos # (Auto) Baso # (Auto) Abs Immat Gran (auto) Absolute Neuts (auto) Absolute Nucleated RBC Nucleated RBC % PT INR APTT Sodium Potassium Chloride Carbon Dioxide Anion Gap BUN Creatinine Estim Creat Clear Calc Estimated GFR Glucose POC Capillary Glucose 129 H Hemoglobin A1c Lactic Acid Calcium Magnesium Total Bilirubin AST ALT Alkaline Phosphatase Troponin I C-Reactive Protein Total Protein Albumin Lipase TSH (Reflex) Free T4 Total T3 Urine Color Urine Appearance Urine pH Ur Specific [place] Urine Protein Urine Glucose (UA) Urine Ketones Ur Blood (Man) Urine Nitrate Urine Bilirubin Urine Urobilinogen Leukocyte Esterase Rfl Urine RBC Urine WBC Ur Squamous Epith Cells Urine Bacteria Urine Casts Influenza A (RT-PCR) Influenza B (RT-PCR) Legionella Source Legionella Culture Legionella Cult Status RSV (RT-PCR) SARS-CoV-2 RNA (RT-PCR)
[2025-09-30 19:22] LABS: Total Protein Urine Random 325 mg/dL; Ur Ttl Prot Creatinine Ratio 3.74 mg/mg (0-0.20)
[2025-09-30 19:36] LABS: Urine Eos QC 2nd Tech Confirmed
[2025-09-30] MEDS: ATORVASTATIN 40 MG TABLET PO (21:19)
[2025-09-30] MEDS: SERTRALINE HCL 50 MG TABLET 200 MG PO (21:20)
[2025-09-30] MEDS: cefTRIAXone 1 GM in SODIUM CHLORIDE 0.9% IV 50 ML 100 ML IVPB (21:24)
[2025-09-30] MEDS: ZOLPIDEM TARTRATE (*CRX) 5 MG TABLET 10 MG PO (21:40)
[2025-09-30] MEDS: AZITHROMYCIN IV 500 MG in SODIUM CHLORIDE 0.9% IV 250 ML IVPB (21:56)
[2025-09-30 22:52] LABS: MRSA (PCR) NOT DETECTED (NOT DETECTE)
[2025-10-01] VITALS (17 sets, daily range): BP systolic 98–131; BP diastolic 45–75; PULSE 53–75; RESP 12–16; TEMP 36.4–36.8; O2SAT 99–100
--- NOTE | 2025-10-01 01:56 | WPDURCON ---
Assessment and Plan Assessment and plan (1) Right upper quadrant pain: Code(s): R10.11 - Right upper quadrant pain Status: Acute Assessment and Plan: Stable right lower pole kidney stone and stable mild hydronephrosis. Would recommend outpatient nuc med renal scan to evaluate for functional obstruction. Nothing urologic indicated during current admission. Urology Consult Note HPI Date Seen: 10/01/25 Requesting Physician: Rusty Valderrama MD Primary Care Provider: Masha Patel Consult Narrative Narrative: Robert Dickson is a 44 year old male presenting for various complaints including right flank/back pain. He was seen by us earlier this year, and has in fact been seen going back to 2008 for mild right hydronephrosis. Current and past CT reviewed- he has a stable right lower pole stone that has been shocked 15+ years ago. This certainly may be a parenchymal calcification. There is mild fulness of the right collecting system, possible extrarenal pelvis, but parenchyma looks preserved. I cannot see prior renal scans. Troponin significantly elevated and he is set to undergo heart cath in a few days. 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 Psoriasis Eczema Hepatic steatosis Esophagitis with gastritis Chronic kidney disease, stage 3b With baseline creatinine ranging between 1.45 and 1.6 Diabetic nephropathy Hyperlipidemia Mitral regurgitation Diabetic neuropathy DM2 (diabetes mellitus, type 2) Now diet controlled due to 200 lb weight loss previously was insulin-dependent HTN (hypertension) with goal to be determined Kidney stones COPD (chronic obstructive pulmonary disease) Depression with anxiety History of COPD History of hypertension Surgical History Surgical History History of amputation of right great toe Partial amputation of right great toe 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 Patient had a metal mitral valve replacement place in 2022 and had 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 with secondary tissue valve replacement within 2 weeks of original procedure H/O tooth extraction History of lithotripsy (~2019) Right kidney History of cardiac catheterization 2013, no coronary artery disease with repeat heart catheterization 2022 with placement of 2 stents Family History Family History Mother Cerebrovascular accident Hypertension Depression Father Diabetes mellitus Heart disease Cancer before age 60 Acute myocardial infarction Grandparent Heart disease COPD (chronic obstructive pulmonary disease) Kidney disease Social History Social History Social History: The patient is and lives with his He has 3 children. 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 He used to smoke 2-3 packs of cigarettes per day but quit smoking in 2022 when he had his mitral valve replaced. He denies any alcohol. He uses marijuana. Code status: Full code Surrogate decision maker: Malia () Smoking packs per day: 2 Smoking cigarettes per day: 40.0 Years smoked: 30 Smoking pack-years: 60.00 Smoking status: Former smoker Tobacco type: cigarettes Second hand tobacco smoke exposure: No Alcohol intake: never Substance use: current Substance use type: marijuana Last use: 09/16/25 Do You Feel Safe in your Home?: Yes Lack of Transportation: No Lack of Food: Never True Current Housing: I Have Housing Concerned About Future Housing: No Difficulty Paying Gas/Electric Bills: No Difficulty Paying for Meds: No Currently Unemployed: No Education: High School Diploma/GED Difficulty w/ Childcare or Family Care: No Gender identity (if verbalized by the patient): Male Spiritual care concerns: No Meds Home Medications and Allergies Home Medications ?Medication ?Instructions ?Recorded ?Confirmed ?Type gabapentin 300 mg capsule 400 mg PO QID PRN Muscle Pain 04/27/20 09/30/25 History atorvastatin 80 mg tablet 40 mg PO QPM 03/23/23 09/30/25 History sertraline 100 mg tablet 200 mg PO HS 03/23/23 09/30/25 History aspirin 81 mg chewable tablet 1 tablet PO DAILY 03/28/25 09/30/25 History carvedilol 25 mg tablet 25 mg PO Q12H 03/28/25 09/30/25 History ergocalciferol (vitamin D2) 1,250 1,250 mcg PO WEEKLY 03/28/25 09/30/25 History mcg (50,000 unit) capsule folic acid 1 mg tablet 1 mg PO DAILY 03/28/25 09/30/25 History hydralazine 25 mg tablet 25 mg PO DAILY 03/28/25 09/30/25 History losartan 50 mg tablet 50 mg PO DAILY 03/28/25 09/30/25 History pantoprazole 40 mg tablet,delayed 40 mg PO Q12H 03/28/25 09/30/25 History release rivaroxaban 20 mg tablet (Xarelto) 20 mg PO QPM 03/28/25 09/30/25 History zolpidem 10 mg tablet 10 mg PO QHS 03/28/25 09/30/25 History ondansetron 4 mg disintegrating 4 mg translingual Q8H PRN nausea 05/14/25 09/30/25 History tablet and vomiting oxycodone 5 mg tablet 5 mg PO Q6H PRN pain #12 tabs 05/16/25 09/30/25 Rx empagliflozin 10 mg tablet 10 mg PO DAILY 09/30/25 09/30/25 History (Jardiance) metoprolol succinate 25 mg 25 mg PO DAILY 09/30/25 09/30/25 History tablet,extended release 24 hr Allergies Allergy/AdvReac Type Severity Reaction Status Date / Time tramadol AdvReac Hallucinati Verified 09/30/25 00:20 ng Vital Signs Vital Signs - 24 hr 09/30/25 02:00 09/30/25 03:35 09/30/25 03:40 Temperature Pulse Rate 79 79 75 Respiratory Rate 18 Blood Pressure Pulse Oximetry 97 Oxygen Delivery Room Air Fraction of Inspired Oxygen 09/30/25 04:00 09/30/25 04:00 09/30/25 06:00 Temperature 37.3 C Pulse Rate 79 72 65 Respiratory Rate 18 Blood Pressure 98/67 L Pulse Oximetry 97 Oxygen Delivery Fraction of Inspired Oxygen 09/30/25 07:58 09/30/25 08:00 09/30/25 08:00 Temperature 36.9 C Pulse Rate 60 60 Respiratory Rate 12 Blood Pressure 103/66 Pulse Oximetry 99 Oxygen Delivery Room Air Fraction of Inspired Oxygen 09/30/25 08:01 09/30/25 08:03 09/30/25 10:00 Temperature Pulse Rate 61 63 67 Respiratory Rate 14 14 Blood Pressure Pulse Oximetry Oxygen Delivery Fraction of Inspired Oxygen 09/30/25 11:50 09/30/25 12:00 09/30/25 12:00 Temperature 36.9 C Pulse Rate 60 57 L Respiratory Rate 20 Blood Pressure 106/63 Pulse Oximetry 97 Oxygen Delivery Room Air Fraction of Inspired Oxygen 09/30/25 13:25 09/30/25 13:30 09/30/25 14:00 Temperature Pulse Rate 61 60 62 Respiratory Rate 15 15 Blood Pressure Pulse Oximetry Oxygen Delivery Fraction of Inspired Oxygen 09/30/25 15:59 09/30/25 16:00 09/30/25 16:00 Temperature 36.8 C Pulse Rate 64 65 Respiratory Rate 20 Blood Pressure 116/56 L Pulse Oximetry 100 Oxygen Delivery Room Air Fraction of Inspired Oxygen 09/30/25 18:00 09/30/25 20:00 09/30/25 20:00 Temperature 36.3 C L Pulse Rate 67 66 71 Respiratory Rate 18 Blood Pressure 108/56 L Pulse Oximetry 98 Oxygen Delivery Fraction of Inspired Oxygen 09/30/25 21:13 09/30/25 21:20 09/30/25 22:00 Temperature Pulse Rate 66 67 61 Respiratory Rate 18 Blood Pressure Pulse Oximetry 98 Oxygen Delivery Room Air Fraction of Inspired Oxygen 09/30/25 22:20 09/30/25 23:31 10/01/25 00:00 Temperature Pulse Rate 68 60 Respiratory Rate 16 Blood Pressure Pulse Oximetry 98 Oxygen Delivery Room Air Room Air Fraction of Inspired Oxygen 10/01/25 00:00 10/01/25 01:44 Temperature 36.8 C Pulse Rate 61 54 L Respiratory Rate 15 Blood Pressure 98/52 L Pulse Oximetry 99 Oxygen Delivery Fraction of Inspired Oxygen Results Labs 09/29/25 19:47 09/29/25 19:47 Labs: Cardiac Enzymes 09/30/25 09/30/25 09/30/25 Range/Units 01:38 01:38 04:31 Troponin I 14.300 H* D Cancelled 14.400 H* (0.000-0.034) ng/mL
[2025-10-01] MEDS: oxyCODONE HCL (*CRX) 5 MG TAB IR PO ×3 (03:24→18:09)
[2025-10-01 04:22] LABS: Hematocrit 29.5 % (42.0-52.0); Hemoglobin 9.2 g/dL (14.0-18.0); Immature Granulocyte Percent A 0.3 % (0-0.5); Lymphocytes Absolute Auto 2.25 K/mm3 (0.9-3.2); Mean Corpuscular HGB Conc 31.2 g/dl (32-36); Mean Corpuscular Hemoglobin 27.5 pg (26-34); Mean Corpuscular Volume 88.3 fl (80-100); Nucleated Red Blood Cells Absolute Auto 0.000 K/mm3 (0.0-0.012); Nucleated Red Blood Cells Perc 0.0 % (0.0-0.2); Platelet Count Result 162 k/mm3 (150-375); Red Blood Count 3.34 M/mm3 (4.6-6.20); White Blood Count 6.8 K/mm3 (4.5-10.0)
[2025-10-01 04:46] LABS: Alanine Aminotransferase 14 U/L (6-50); Albumin Level 3.7 g/dL (3.5-5.1); Alkaline Phosphatase 145 U/L (38-126); Anion Gap 11 mmol/L (4-12); Aspartate Amino Transferase 43 U/L (17-59); Bilirubin,Total 0.3 mg/dL (0.2-1.3); Blood Urea Nitrogen 31 mg/dL (9-20); Calcium 8.7 mg/dL (8.4-10.2); Carbon Dioxide 18 mmol/L (22-30); Chloride 108 mmol/L (98-107); Creatine Kinase 247 U/L (55-170); Estimated CRCL calculation 41 ml/min; Estimated Glomerular Filt Rate 31; Glucose 101 mg/dL (65-110); Magnesium 1.8 mg/dL (1.6-2.3); Potassium 4.0 mmol/L (3.4-5.0); Sodium 137 mmol/L (137-145); Total Protein 7.4 g/dL (6.3-8.2)
[2025-10-01 04:53] LABS: NT Pro B Type Natriuretic Pept 22700 pg/mL (19.9-100)
[2025-10-01] MEDS: ASPIRIN 81 MG CHEWABLE TABLET PO (08:41)
[2025-10-01] MEDS: FOLIC ACID 1 MG TABLET PO (08:41)
[2025-10-01] MEDS: PANTOPRAZOLE 40 MG TABLET PO ×2 (08:42→20:41)
[2025-10-01] MEDS: TAMSULOSIN HCL 0.4 MG CAPSULE PO (08:43)
[2025-10-01] MEDS: SODIUM CHLORIDE 0.9% IV 1,000 ML 100 ML IV CONT (09:52)
--- NOTE | 2025-10-01 10:32 | WNDPHOTO ---
PHOTO ONLY - See Nursing Notes and/ or assessments for documentation.
[2025-10-01 11:55] LABS: Hematocrit 31.8 % (42.0-52.0); Hemoglobin 9.9 g/dL (14.0-18.0); Immature Granulocyte Percent A 0.2 % (0-0.5); Lymphocytes Absolute Auto 2.17 K/mm3 (0.9-3.2); Mean Corpuscular HGB Conc 31.1 g/dl (32-36); Mean Corpuscular Hemoglobin 27.6 pg (26-34); Mean Corpuscular Volume 88.6 fl (80-100); Nucleated Red Blood Cells Absolute Auto 0.000 K/mm3 (0.0-0.012); Nucleated Red Blood Cells Perc 0.0 % (0.0-0.2); Platelet Count Result 178 k/mm3 (150-375); Red Blood Count 3.59 M/mm3 (4.6-6.20); White Blood Count 6.1 K/mm3 (4.5-10.0)
[2025-10-01 12:06] LABS: INR 1.4; Prothrombin Time 16.9 Seconds (11.1-14.7)
[2025-10-01 12:07] LABS: Partial Thromboplastin Time 42.2 Seconds (22.3-36.8)
--- NOTE | 2025-10-01 12:07 | PM.PNCARD ---
Progress Note: A&P Assessment and Plan (1) Elevated troponin: Code(s): R79.89 - Other specified abnormal findings of blood chemistry Status: Acute Plan Elevated troponin; It could be demand ischemia but the degree trop elevation is significant and concerning for underlying obstructive coronary artery disease. New onset cardiomyopathy EF35% History of mitral valve replacement redo Dec 2023 (29 [address] II) Paroxysmal atrial flutter SARAH on CKD stage 3 Hypertension controlled Sepsis and pyelonephritis Hx fo DVT and PE on OAC Hx of osteomylitis toes Plan Blood culture and evaluation of possible bacteremia d/c xarelto and start Heparin infusion tomorrow Aspirin Left heart catheterization on Thursday Cont B-loida and hydralazine Hold ACEI IV fluids to prevent contrast induced nephroloathy Subjective Date/time seen: 10/01/25 12:07 Interval history: follow up for elevated troponin Tele: NSR No acute events Review of Systems Review of Systems: All systems reviewed & are unremarkable except as noted in HPI and below Exam Const: General: comfortable and no acute distress Other: Able to lie flat HENMT: Face/Nose/Sinus: Normal nares present and no epistaxis Mouth: Yes moist mucous membranes Eyes: Sclera: sclerae normal Pupils: Equal, round and reactive pupils present Neck: Neck: supple and no JVD Carotids: no bruits Resp: Auscultation: clear to auscultation bilaterally and lung sounds not diminished Other: No chest wall tenderness Cardio: Rate: regular rate Rhythm: regular rhythm Heart sounds: no gallops, no murmurs and no rubs GI: GI Palp: Yes Soft to palpation and No Tenderness to palpation present (GI) Auscultation: normal bowel sounds Skin: General skin exam: normal color, rashes and/or lesions noted and no erythema Other: Warm Neuro: Cranial nerves: Yes Equal, round and reactive pupils present Speech: normal speech Other: No obvious focal deficit or facial asymmetry Extrem: General: no edema Other: Normal capillary refills Intact distal pulses. Objective Data Vital Signs Vital Signs: Vital Signs - 24 hr 09/30/25 13:25 09/30/25 13:30 09/30/25 14:00 Temperature Pulse Rate 61 60 62 Respiratory Rate 15 15 Blood Pressure Pulse Oximetry Oxygen Delivery Fraction of Inspired Oxygen 09/30/25 15:59 09/30/25 16:00 09/30/25 16:00 Temperature 36.8 C Pulse Rate 64 65 Respiratory Rate 20 Blood Pressure 116/56 L Pulse Oximetry 100 Oxygen Delivery Room Air Fraction of Inspired Oxygen 09/30/25 18:00 09/30/25 20:00 09/30/25 20:00 Temperature 36.3 C L Pulse Rate 67 66 71 Respiratory Rate 18 Blood Pressure 108/56 L Pulse Oximetry 98 Oxygen Delivery Fraction of Inspired Oxygen 09/30/25 21:13 09/30/25 21:20 09/30/25 22:00 Temperature Pulse Rate 66 67 61 Respiratory Rate 18 Blood Pressure Pulse Oximetry 98 Oxygen Delivery Room Air Fraction of Inspired Oxygen 09/30/25 22:20 09/30/25 23:31 10/01/25 00:00 Temperature Pulse Rate 68 60 Respiratory Rate 16 Blood Pressure Pulse Oximetry 98 Oxygen Delivery Room Air Room Air Fraction of Inspired Oxygen 21 10/01/25 00:00 10/01/25 01:44 10/01/25 03:08 Temperature 36.8 C Pulse Rate 61 54 L Respiratory Rate 15 Blood Pressure 98/52 L Pulse Oximetry 99 Oxygen Delivery Room Air Fraction of Inspired Oxygen 10/01/25 03:18 10/01/25 04:00 10/01/25 05:23 Temperature 36.5 C Pulse Rate 59 L 55 L 55 L Respiratory Rate 16 Blood Pressure 114/63 Pulse Oximetry 100 Oxygen Delivery Fraction of Inspired Oxygen 10/01/25 07:50 10/01/25 08:00 10/01/25 08:42 Temperature 36.6 C Pulse Rate 55 L 54 L 75 Respiratory Rate 16 Blood Pressure 121/65 Pulse Oximetry 100 Oxygen Delivery Fraction of Inspired Oxygen 10/01/25 10:00 10/01/25 12:00 Temperature 36.4 C Pulse Rate 53 L 54 L Respiratory Rate 12 Blood Pressure 131/75 Pulse Oximetry 99 Oxygen Delivery Fraction of Inspired Oxygen Intake/Output Intake/Output: Intake & Output 09/28/25 09/29/25 09/30/25 10/01/25 23:59 23:59 23:59 23:59 Intake Total 1300 1044.2 715.8 Output Total 700 Balance 1300 344.2 715.8 Meds/Results Medications: Active Medications Generic Name Dose Route Start Last Admin Trade Name Freq PRN Reason Stop Dose Admin Acetaminophen 650 mg 09/29/25 22:33 09/30/25 00:48 Acetaminophen 325 Mg Tablet PO 650 mg Q4H PRN Administration Mild Pain (1-3) or Fever Albuterol/Ipratropium 3 ml 09/30/25 18:07 Ipratropium 0.5 Mg/Albuterol Sulfate 2.5 Mg (Base) Ampul.Neb 3 Ml INHALATION Q6HRT PRN Shortness Of Breath Or Wheezing Aspirin 81 mg 09/30/25 08:00 10/01/25 08:41 Aspirin 81 Mg Chewable Tablet PO 81 mg DAILY@0800 REYNA Administration Atorvastatin Calcium 40 mg 09/30/25 21:00 09/30/25 21:19 Atorvastatin 40 Mg Tablet PO 40 mg QHS REYNA Administration Carvedilol 25 mg 09/30/25 03:27 10/01/25 08:42 Carvedilol 25 Mg Tablet PO 25 mg Q12HR REYNA Administration Dextrose 12.5 gm 09/30/25 03:47 Dextrose 50% 25 Gm/50 Ml Syringe IV PUSH PRN PRN Hypoglycemia Protocol Doxycycline Hyclate 100 mg 10/01/25 21:00 Doxycycline Hyclate 100 Mg Tablet PO 10/03/25 09:01 Q12HR [facility] Empagliflozin 10 mg 09/30/25 09:00 09/30/25 09:38 Empagliflozin 10 Mg Tablet PO 10 mg On Hold: 10/01/25 08:43 DAILY REYNA Administration Folic Acid 1 mg 09/30/25 09:00 10/01/25 08:41 Folic Acid 1 Mg Tablet PO 1 mg DAILY REYNA Administration Gabapentin 400 mg 09/30/25 02:29 Gabapentin 400 Mg Capsule PO QID PRN Muscle Pain Glucagon 1 mg 09/30/25 03:47 Glucagon For Inj 1 Mg Vial IM PRN PRN Hypoglycemia Protocol Glucose 15 gm 09/30/25 03:47 Glucose Oral Gel 15 Gm Of Glucse In 37.5 Gm Tube PO PRN PRN Hypoglycemia Protocol Heparin Sodium (Porcine) 4,000 units 10/01/25 11:43 Heparin Sodium 5,000 Units/Ml Vial IV PUSH PRN PRN aPTT less than 55 seconds Heparin Sodium (Porcine) 3,500 units 10/01/25 11:43 Heparin Sodium 5,000 Units/Ml Vial IV PUSH PRN PRN aPTT 55 - 70 seconds Hydralazine HCl 25 mg 09/30/25 09:00 09/30/25 09:40 Hydralazine Hcl 25 Mg Tablet PO 25 mg On Hold: 09/30/25 17:59 DAILY REYNA Administration Ceftriaxone Sodium 1 gm/ 50 mls @ 100 mls/hr 09/30/25 21:00 09/30/25 21:54 Sodium Chloride IVPB Infused Q24H REYNA Infusion Dextrose 1,000 mls @ 100 mls/hr 09/30/25 03:47 Dextrose 5% 1,000 Ml IVPB PRN PRN Hypoglycemia Protocol Sodium Chloride 1,000 mls @ 100 mls/hr 10/01/25 08:45 10/01/25 09:52 Normal Saline Iv IV CONT 10/01/25 13:44 100 mls/hr .Q10H REYNA Administration Heparin Sodium/Dextrose 25,000 units in 250 mls @ 10 mls/hr 10/01/25 11:45 Heparin Sodium/D5w 100 Units/Ml IV CONT .Q24H REYNA Protocol 1,000 UNITS/HR Insulin Aspart 2 - 5 units 09/30/25 08:00 10/01/25 08:43 Insulin Aspart (*Bkc) 100 Units/Ml SUB-Q Not Given TIDWM [facility] Protocol Losartan Potassium 50 mg 09/30/25 09:00 09/30/25 09:39 Losartan Potassium 50 Mg Tablet PO 50 mg On Hold: 10/01/25 08:43 DAILY REYNA Administration Morphine Sulfate 1 mg 09/30/25 18:07 Morphine Sulfate (*Crx) 4 Mg/Ml Inj IV PUSH Q4H PRN Pain Rated 7-10 Oxycodone HCl 5 mg 09/30/25 02:29 10/01/25 09:50 Oxycodone Hcl (*Crx) 5 Mg Tab Ir PO 5 mg Q6H PRN Administration Pain 7-10 Pantoprazole Sodium 40 mg 09/30/25 09:00 10/01/25 08:42 Pantoprazole 40 Mg Tablet PO 40 mg Q12HR REYNA Administration Rivaroxaban 20 mg 09/30/25 02:30 09/30/25 18:16 Rivaroxaban 20 Mg Tablet PO Not Given On Hold: 09/30/25 17:00 DAILY@1700 REYNA Sertraline HCl 200 mg 09/30/25 21:00 09/30/25 21:20 Sertraline Hcl 50 Mg Tablet PO 200 mg HS REYNA Administration Tamsulosin HCl 0.4 mg 09/30/25 09:00 10/01/25 08:43 Tamsulosin Hcl 0.4 Mg Capsule PO 0.4 mg QAM REYNA Administration Zolpidem Tartrate 10 mg 09/30/25 15:29 09/30/25 21:40 Zolpidem Tartrate (*Crx) 5 Mg Tablet PO 10 mg QHS PRN Administration Insomnia Radiology Results: ITS Impressions Abdomen/Pelvis CT 09/29/25 21:17 IMPRESSION: 1. 10 mm calculus in the right kidney lower calyx. Mild prominence of right renal pelvis. Mild perinephric stranding around the kidney, suggesting possible pyelonephritis. 2. No evidence of hydroureter. No bladder calculus. Chest X-Ray 10/01/25 11:58 IMPRESSION: 1. Improving interstitial pulmonary edema. Labs Labs: Laboratory Results - last 24 hr 09/30/25 09/30/25 09/30/25 09:49 09:49 15:45 WBC RBC Hgb Hct MCV MCH MCHC RDW Plt Count MPV Immature Gran % (Auto) Neut % (Auto) Lymph % (Auto) Mcnairy % (Auto) Eos % (Auto) Baso % (Auto) Lymph # (Auto) Mcnairy # (Auto) Eos # (Auto) Baso # (Auto) Abs Immat Gran (auto) Absolute Neuts (auto) Absolute Nucleated RBC Nucleated RBC % PT INR APTT Sodium Potassium Chloride Carbon Dioxide Anion Gap BUN Creatinine Estim Creat Clear Calc Estimated GFR Glucose POC Capillary Glucose 165 H Calcium Phosphorus Magnesium Total Bilirubin AST ALT Alkaline Phosphatase Total Creatine Kinase NT-Pro-B Natriuret Pep Total Protein Albumin Urine Eosinophils None seen U Random Total Protein 325 Ur Random Sodium 65 Urine Creatinine 86.8 86.2 Protein/Creat Ratio 2 3.74 H Nasal MRSA (PCR) 09/30/25 09/30/25 10/01/25 20:08 21:34 04:05 WBC 6.8 RBC 3.34 L Hgb 9.2 L Hct 29.5 L MCV 88.3 MCH 27.5 MCHC 31.2 L RDW 16.4 H Plt Count 162 MPV 11.0 H Immature Gran % (Auto) 0.3 Neut % (Auto) 55.5 Lymph % (Auto) 33.3 Mcnairy % (Auto) 8.7 H Eos % (Auto) 1.9 Baso % (Auto) 0.3 Lymph # (Auto) 2.25 Mcnairy # (Auto) 0.6 Eos # (Auto) 0.1 Baso # (Auto) 0.0 Abs Immat Gran (auto) 0.02 Absolute Neuts (auto) 3.8 Absolute Nucleated RBC 0.000 Nucleated RBC % 0.0 PT INR APTT Sodium 137 Potassium 4.0 Chloride 108 H Carbon Dioxide 18 L Anion Gap 11 BUN 31 H Creatinine 2.32 H Estim Creat Clear Calc 41 Estimated GFR 31 L Glucose 101 POC Capillary Glucose 115 H Calcium 8.7 Phosphorus 3.5 Magnesium 1.8 Total Bilirubin 0.3 AST 43 ALT 14 Alkaline Phosphatase 145 H Total Creatine Kinase 247 H NT-Pro-B Natriuret Pep 58147 H Total Protein 7.4 Albumin 3.7 Urine Eosinophils U Random Total Protein Ur Random Sodium Urine Creatinine Protein/Creat Ratio 2 Nasal MRSA (PCR) Not detected 10/01/25 10/01/25 10/01/25 07:17 11:28 11:51 WBC 6.1 RBC 3.59 L Hgb 9.9 L Hct 31.8 L MCV 88.6 MCH 27.6 MCHC 31.1 L RDW 16.8 H Plt Count 178 MPV 10.6 H Immature Gran % (Auto) 0.2 Neut % (Auto) 53.4 Lymph % (Auto) 35.7 Mcnairy % (Auto) 7.9 Eos % (Auto) 2.1 Baso % (Auto) 0.7 Lymph # (Auto) 2.17 Mcnairy # (Auto) 0.5 Eos # (Auto) 0.1 Baso # (Auto) 0.0 Abs Immat Gran (auto) 0.01 Absolute Neuts (auto) 3.2 Absolute Nucleated RBC 0.000 Nucleated RBC % 0.0 PT 16.9 H INR 1.4 APTT 42.2 H Sodium Potassium Chloride Carbon Dioxide Anion Gap BUN Creatinine Estim Creat Clear Calc Estimated GFR Glucose POC Capillary Glucose 103 94 Calcium Phosphorus Magnesium Total Bilirubin AST ALT Alkaline Phosphatase Total Creatine Kinase NT-Pro-B Natriuret Pep Total Protein Albumin Urine Eosinophils U Random Total Protein Ur Random Sodium Urine Creatinine Protein/Creat Ratio 2 Nasal MRSA (PCR)
[2025-10-01] MEDS: HEPARIN SOD/D5W 100 UNITS/ML 25,000 UNITS/250 ML BAG 10 UNITS IV CONT (12:34)
[2025-10-01] MEDS: SODIUM CHLORIDE 0.9% IV 500 ML 75 ML IV CONT ×2 (14:39→21:24)
--- NOTE | 2025-10-01 17:18 | PM.IMPN ---
Progress Note: A&P Assessment and Plan (1) Non-ST elevation SC (NSTEMI): Code(s): I21.4 - Non-ST elevation (NSTEMI) myocardial infarction Status: Acute Assessment and Plan: Patient presents to the ED by ambulance from home complaining of nausea, vomiting, SOB and right flank pain. Troponin 2.04 on admission and climbed to 14.4. EKG showing sinus tachycardia (101), possible LAE and nonspecific ST-T wave changes. Repeat EKG showing similar findings. Echo showing EF 30-35% with all segments hypokinetic except basal segments (consider stress induced vs multivessel disease), LV enlarged, diastolic dysfunction, normal appearing bioprosthetic valve, mod pulm HTN. Patient is already on aspirin, beta-loida, atorvastatin on admission Possible multi-vessel disease versus takotsubo. Cardiology consulted. Unclear if patient had LHC prior to his mitral valve surgery in Nov 2023. Continue with aspirin, atorvastatin and carvedilol. Xarelto held and Heparin gtt started. LHC planned for tomorrow (2) Pyelonephritis: Code(s): N12 - Tubulo-interstitial nephritis, not specified as acute or chronic Status: Acute Assessment and Plan: CT imaging showing mild perinephri stranding around right kidney. UA showing 3+ protein, tr glucose, 2+ bld, Neg LE/N, 11-20 RBC and no WBC. WBC 13.6K -> normal. The patient is having right CVA tenderness present on admission BCx obtained and Rocephin started. Follow up Cx results. Continue abx for now. (3) Community acquired pneumonia: Code(s): J18.9 - Pneumonia, unspecified organism Status: Acute Assessment and Plan: CXR showing mild CMG and post-op changes with patchy airspace opacities bilateral (R>L) lung bases. Presumed PNA so started on Zithromax and Rocephin. Azithro changed to Doxy. CT Abd showing basilar ground glass opacities due to pulmonary edema c/w CHF MRSA nasal swab negative. Cultures obtained. QTC is 478. Suspect CHF related to low EF and and less likely PNA. (4) CHF (congestive heart failure): Code(s): I50.9 - Heart failure, unspecified Status: Acute Assessment and Plan: As above. BNP 23K. Suspect acute systolic and diastolic CHF. Repeat CXR showing improved interstitial pulmonary edema. Monitor (5) HTN (hypertension) with goal to be determined: Code(s): I10 - Essential (primary) hypertension Status: Chronic Assessment and Plan: Patient's blood pressure was reviewed on 10/01 Home medication list: Carvedilol, hydralazine, losartan, metoprolol (hopefully pt not taking two BB) Currently on losartan, carvedilol. Hydralazine held. Blood pressure soft at times and Cr higher. Will continue carvedilol but hold losartan. Follow (6) DM2 (diabetes mellitus, type 2): Qualifiers: Diabetes mellitus complication status: with other specified complication Diabetes mellitus termite exterminator helper insulin use: unspecified termite exterminator helper insulin use status Qualified Code(s): E11.69 - Type 2 diabetes mellitus with other specified complication Code(s): E11.9 - Type 2 diabetes mellitus without complications Status: Acute Assessment and Plan: A1c 5.5%. The patient's blood glucose was reviewed on 10/01 Home medications: Empagliflozin Glucose remains well controlled. Continue AccuCheks covering with sliding scale. Hypoglycemia protocol available as needed. Hold Empagliflozin. 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 Continue heparin drip. (8) Chronic kidney disease, stage 3b: Code(s): N18.32 - Chronic kidney disease, stage 3b Status: Acute Assessment and Plan: Patient with normal renal function in 2022. Creatinine earlier this year runs 1.4-1.7 range. Creatinine 1.7 on admission. 3+ protein noted with Prot/Cr 3.7gm Cr up to 2.3 now. Hold Empagliflozin, Losartan. NS x 500mL Avoid nephrotoxic medication. Monitor urine output, renal function and electrolytes. (9) COPD (chronic obstructive pulmonary disease): Code(s): J44.9 - Chronic obstructive pulmonary disease, unspecified Status: Chronic Assessment and Plan: Stable. Lungs clear. Remains on room air. Continue with DuoNeb PRN (10) Depression with anxiety: Code(s): F41.8 - Other specified anxiety disorders Status: Chronic Assessment and Plan: Mood stable. Zoloft continued. Ambien available p.r.n.. Plan DVT prophylaxis - Heparin gtt Code status -full Subjective Date/time seen: 10/01/25 17:18 Interval history: 44yo male with DM, HLD, CKD, pAFib and VTE on Xarelto here for complaints of nausea, vomiting and trouble breathing. 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 He did not require bypass. No complaints. No CP or SOB. Back pain better and improved with heating pad. Eating okay. Back pain has been occurring for the past few months. Exam Narrative: AF 97.6 100/45 54 12 100% ra Gen - NARD Chest - CTA bilaterally, nml RR CV - RRR S1/S2. Tele showing 3b run NSVT o/w no significant dysrhythmias Abd - Soft, NT/ND, Positive BS Ext - No pedal edema. 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 Neuro - Alert and appropriate Psych - Nml mood and affect Skin - Warm and dry. dried eschar lateral left toe. Objective Data Vital Signs Vital Signs: Vital Signs - 24 hr 09/30/25 18:00 09/30/25 20:00 09/30/25 20:00 Temperature 97.4 F L Pulse Rate 67 66 71 Respiratory Rate 18 Blood Pressure 108/56 L Pulse Oximetry 98 Oxygen Delivery Fraction of Inspired Oxygen 09/30/25 21:13 09/30/25 21:20 09/30/25 22:00 Temperature Pulse Rate 66 67 61 Respiratory Rate 18 Blood Pressure Pulse Oximetry 98 Oxygen Delivery Room Air Fraction of Inspired Oxygen 09/30/25 22:20 09/30/25 23:31 10/01/25 00:00 Temperature Pulse Rate 68 60 Respiratory Rate 16 Blood Pressure Pulse Oximetry 98 Oxygen Delivery Room Air Room Air Fraction of Inspired Oxygen 10/01/25 00:00 10/01/25 01:44 10/01/25 03:08 Temperature 98.3 F Pulse Rate 61 54 L Respiratory Rate 15 Blood Pressure 98/52 L Pulse Oximetry 99 Oxygen Delivery Room Air Fraction of Inspired Oxygen 10/01/25 03:18 10/01/25 04:00 10/01/25 05:23 Temperature 97.7 F Pulse Rate 59 L 55 L 55 L Respiratory Rate 16 Blood Pressure 114/63 Pulse Oximetry 100 Oxygen Delivery Fraction of Inspired Oxygen 10/01/25 07:50 10/01/25 08:00 10/01/25 08:42 Temperature 97.9 F Pulse Rate 55 L 54 L 75 Respiratory Rate 16 Blood Pressure 121/65 Pulse Oximetry 100 Oxygen Delivery Fraction of Inspired Oxygen 10/01/25 10:00 10/01/25 12:00 10/01/25 12:00 Temperature 97.6 F Pulse Rate 53 L 54 L Respiratory Rate 12 Blood Pressure 131/75 Pulse Oximetry 99 Oxygen Delivery Room Air Fraction of Inspired Oxygen 10/01/25 12:00 10/01/25 14:00 10/01/25 16:00 Temperature 97.6 F Pulse Rate 58 L 53 L 56 L Respiratory Rate 12 Blood Pressure 100/45 L Pulse Oximetry 100 Oxygen Delivery Fraction of Inspired Oxygen 10/01/25 16:00 10/01/25 16:00 Temperature Pulse Rate 54 L Respiratory Rate Blood Pressure Pulse Oximetry Oxygen Delivery Room Air Fraction of Inspired Oxygen Intake/Output Intake/Output: Intake & Output 09/28/25 09/29/25 09/30/25 10/01/25 23:59 23:59 23:59 23:59 Intake Total 1300 1044.2 1195.8 Output Total 700 900 Balance 1300 344.2 295.8 Meds/Results Medications: Active Medications Generic Name Dose Route Start Last Admin Trade Name Freq PRN Reason Stop Dose Admin Acetaminophen 650 mg 09/29/25 22:33 09/30/25 00:48 Acetaminophen 325 Mg Tablet PO 650 mg Q4H PRN Administration Mild Pain (1-3) or Fever Albuterol/Ipratropium 3 ml 09/30/25 18:07 Ipratropium 0.5 Mg/Albuterol Sulfate 2.5 Mg (Base) Ampul.Neb 3 Ml INHALATION Q6HRT PRN Shortness Of Breath Or Wheezing Aspirin 81 mg 09/30/25 08:00 10/01/25 08:41 Aspirin 81 Mg Chewable Tablet PO 81 mg DAILY@0800 [facility] Administration Atorvastatin Calcium 40 mg 09/30/25 21:00 09/30/25 21:19 Atorvastatin 40 Mg Tablet PO 40 mg QHS REYNA Administration Carvedilol 25 mg 09/30/25 03:27 10/01/25 08:42 Carvedilol 25 Mg Tablet PO 25 mg Q12HR REYNA Administration Dextrose 12.5 gm 09/30/25 03:47 Dextrose 50% 25 Gm/50 Ml Syringe IV PUSH PRN PRN Hypoglycemia Protocol Doxycycline Hyclate 100 mg 10/01/25 21:00 Doxycycline Hyclate 100 Mg Tablet PO 10/03/25 09:01 Q12HR REYNA Empagliflozin 10 mg 09/30/25 09:00 09/30/25 09:38 Empagliflozin 10 Mg Tablet PO 10 mg On Hold: 10/01/25 08:43 DAILY REYNA Administration Folic Acid 1 mg 09/30/25 09:00 10/01/25 08:41 Folic Acid 1 Mg Tablet PO 1 mg DAILY REYNA Administration Gabapentin 400 mg 09/30/25 02:29 Gabapentin 400 Mg Capsule PO QID PRN Muscle Pain Glucagon 1 mg 09/30/25 03:47 Glucagon For Inj 1 Mg Vial IM PRN PRN Hypoglycemia Protocol Glucose 15 gm 09/30/25 03:47 Glucose Oral Gel 15 Gm Of Glucse In 37.5 Gm Tube PO PRN PRN Hypoglycemia Protocol Heparin Sodium (Porcine) 4,000 units 10/01/25 11:43 Heparin Sodium 5,000 Units/Ml Vial IV PUSH PRN PRN aPTT less than 55 seconds Heparin Sodium (Porcine) 3,500 units 10/01/25 11:43 Heparin Sodium 5,000 Units/Ml Vial IV PUSH PRN PRN aPTT 55 - 70 seconds Hydralazine HCl 25 mg 09/30/25 09:00 09/30/25 09:40 Hydralazine Hcl 25 Mg Tablet PO 25 mg On Hold: 09/30/25 17:59 DAILY REYNA Administration Ceftriaxone Sodium 1 gm/ 50 mls @ 100 mls/hr 09/30/25 21:00 09/30/25 21:54 Sodium Chloride IVPB Infused Q24H REYNA Infusion Dextrose 1,000 mls @ 100 mls/hr 09/30/25 03:47 Dextrose 5% 1,000 Ml IVPB PRN PRN Hypoglycemia Protocol Heparin Sodium/Dextrose 25,000 units in 250 mls @ 10 mls/hr 10/01/25 11:45 10/01/25 12:34 Heparin Sodium/D5w 100 Units/Ml IV CONT 1,000 units/hr .Q24H REYNA 10 mls/hr Protocol Administration 1,000 UNITS/HR Sodium Chloride 500 mls @ 75 mls/hr 10/01/25 12:15 10/01/25 14:39 Normal Saline Iv IV CONT 75 mls/hr .Q6H40M REYNA Administration Insulin Aspart 2 - 5 units 09/30/25 08:00 10/01/25 16:23 Insulin Aspart (*Bkc) 100 Units/Ml SUB-Q Not Given TIDWM [facility] Protocol Losartan Potassium 50 mg 09/30/25 09:00 09/30/25 09:39 Losartan Potassium 50 Mg Tablet PO 50 mg On Hold: 10/01/25 08:43 DAILY REYNA Administration Morphine Sulfate 1 mg 09/30/25 18:07 Morphine Sulfate (*Crx) 4 Mg/Ml Inj IV PUSH Q4H PRN Pain Rated 7-10 Multi-Ingred Cream/Lotion/Oil/Oint 1 applic 10/02/25 09:00 Eucerin Cream 454 Gm Jar TOPICAL DAILY [facility] Oxycodone HCl 5 mg 09/30/25 02:29 10/01/25 09:50 Oxycodone Hcl (*Crx) 5 Mg Tab Ir PO 5 mg Q6H PRN Administration Pain 7-10 Pantoprazole Sodium 40 mg 09/30/25 09:00 10/01/25 08:42 Pantoprazole 40 Mg Tablet PO 40 mg Q12HR REYNA Administration Rivaroxaban 20 mg 09/30/25 02:30 09/30/25 18:16 Rivaroxaban 20 Mg Tablet PO Not Given On Hold: 09/30/25 17:00 DAILY@1700 [facility] Sertraline HCl 200 mg 09/30/25 21:00 09/30/25 21:20 Sertraline Hcl 50 Mg Tablet PO 200 mg HS REYNA Administration Tamsulosin HCl 0.4 mg 09/30/25 09:00 10/01/25 08:43 Tamsulosin Hcl 0.4 Mg Capsule PO 0.4 mg QAM [facility] Administration Zolpidem Tartrate 10 mg 09/30/25 15:29 09/30/25 21:40 Zolpidem Tartrate (*Crx) 5 Mg Tablet PO 10 mg QHS PRN Administration Insomnia Radiology Results: ITS Impressions Abdomen/Pelvis CT 09/29/25 21:17 IMPRESSION: 1. 10 mm calculus in the right kidney lower calyx. Mild prominence of right renal pelvis. Mild perinephric stranding around the kidney, suggesting possible pyelonephritis. 2. No evidence of hydroureter. No bladder calculus. Chest X-Ray 10/01/25 11:58 IMPRESSION: 1. Improving interstitial pulmonary edema. Labs Labs: Laboratory Results - last 24 hr 09/30/25 09/30/25 09/30/25 09:49 09:49 20:08 WBC RBC Hgb Hct MCV MCH MCHC RDW Plt Count MPV Immature Gran % (Auto) Neut % (Auto) Lymph % (Auto) Charlton % (Auto) Eos % (Auto) Baso % (Auto) Lymph # (Auto) Charlton # (Auto) Eos # (Auto) Baso # (Auto) Abs Immat Gran (auto) Absolute Neuts (auto) Absolute Nucleated RBC Nucleated RBC % PT INR APTT Sodium Potassium Chloride Carbon Dioxide Anion Gap BUN Creatinine Estim Creat Clear Calc Estimated GFR Glucose POC Capillary Glucose 115 H Calcium Phosphorus Magnesium Total Bilirubin AST ALT Alkaline Phosphatase Total Creatine Kinase NT-Pro-B Natriuret Pep Total Protein Albumin Urine Eosinophils None seen U Random Total Protein 325 Ur Random Sodium 65 Urine Creatinine 86.8 86.2 Protein/Creat Ratio 2 3.74 H Nasal MRSA (PCR) 09/30/25 10/01/25 10/01/25 21:34 04:05 07:17 WBC 6.8 RBC 3.34 L Hgb 9.2 L Hct 29.5 L MCV 88.3 MCH 27.5 MCHC 31.2 L RDW 16.4 H Plt Count 162 MPV 11.0 H Immature Gran % (Auto) 0.3 Neut % (Auto) 55.5 Lymph % (Auto) 33.3 Charlton % (Auto) 8.7 H Eos % (Auto) 1.9 Baso % (Auto) 0.3 Lymph # (Auto) 2.25 Charlton # (Auto) 0.6 Eos # (Auto) 0.1 Baso # (Auto) 0.0 Abs Immat Gran (auto) 0.02 Absolute Neuts (auto) 3.8 Absolute Nucleated RBC 0.000 Nucleated RBC % 0.0 PT INR APTT Sodium 137 Potassium 4.0 Chloride 108 H Carbon Dioxide 18 L Anion Gap 11 BUN 31 H Creatinine 2.32 H Estim Creat Clear Calc 41 Estimated GFR 31 L Glucose 101 POC Capillary Glucose 103 Calcium 8.7 Phosphorus 3.5 Magnesium 1.8 Total Bilirubin 0.3 AST 43 ALT 14 Alkaline Phosphatase 145 H Total Creatine Kinase 247 H NT-Pro-B Natriuret Pep 25473 H Total Protein 7.4 Albumin 3.7 Urine Eosinophils U Random Total Protein Ur Random Sodium Urine Creatinine Protein/Creat Ratio 2 Nasal MRSA (PCR) Not detected 10/01/25 10/01/25 10/01/25 11:28 11:51 16:09 WBC 6.1 RBC 3.59 L Hgb 9.9 L Hct 31.8 L MCV 88.6 MCH 27.6 MCHC 31.1 L RDW 16.8 H Plt Count 178 MPV 10.6 H Immature Gran % (Auto) 0.2 Neut % (Auto) 53.4 Lymph % (Auto) 35.7 Charlton % (Auto) 7.9 Eos % (Auto) 2.1 Baso % (Auto) 0.7 Lymph # (Auto) 2.17 Charlton # (Auto) 0.5 Eos # (Auto) 0.1 Baso # (Auto) 0.0 Abs Immat Gran (auto) 0.01 Absolute Neuts (auto) 3.2 Absolute Nucleated RBC 0.000 Nucleated RBC % 0.0 PT 16.9 H INR 1.4 APTT 42.2 H Sodium Potassium Chloride Carbon Dioxide Anion Gap BUN Creatinine Estim Creat Clear Calc Estimated GFR Glucose POC Capillary Glucose 94 138 H Calcium Phosphorus Magnesium Total Bilirubin AST ALT Alkaline Phosphatase Total Creatine Kinase NT-Pro-B Natriuret Pep Total Protein Albumin Urine Eosinophils U Random Total Protein Ur Random Sodium Urine Creatinine Protein/Creat Ratio 2 Nasal MRSA (PCR)
[2025-10-01 19:27] LABS: Partial Thromboplastin Time 53.6 Seconds (22.3-36.8)
[2025-10-01] MEDS: ATORVASTATIN 40 MG TABLET PO (20:40)
[2025-10-01] MEDS: SERTRALINE HCL 50 MG TABLET 200 MG PO (20:41)
[2025-10-01] MEDS: cefTRIAXone 1 GM in SODIUM CHLORIDE 0.9% IV 50 ML 100 ML IVPB (20:42)
[2025-10-01] MEDS: DOXYCYCLINE HYCLATE 100 MG TABLET PO (20:42)
[2025-10-01] MEDS: ZOLPIDEM TARTRATE (*CRX) 5 MG TABLET 10 MG PO (21:05)
[2025-10-02] VITALS (19 sets, daily range): BP systolic 102–148; BP diastolic 41–75; PULSE 52–56; RESP 14–18; TEMP 36.3–36.6; O2SAT 94–100
[2025-10-02 02:28] LABS: Hematocrit 26.7 % (42.0-52.0); Hemoglobin 8.3 g/dL (14.0-18.0); Immature Granulocyte Percent A 0.2 % (0-0.5); Lymphocytes Absolute Auto 2.06 K/mm3 (0.9-3.2); Mean Corpuscular HGB Conc 31.1 g/dl (32-36); Mean Corpuscular Hemoglobin 27.6 pg (26-34); Mean Corpuscular Volume 88.7 fl (80-100); Nucleated Red Blood Cells Absolute Auto 0.000 K/mm3 (0.0-0.012); Nucleated Red Blood Cells Perc 0.0 % (0.0-0.2); Platelet Count Result 153 k/mm3 (150-375); Red Blood Count 3.01 M/mm3 (4.6-6.20); White Blood Count 5.0 K/mm3 (4.5-10.0)
[2025-10-02 02:39] LABS: Albumin Level 3.3 g/dL (3.5-5.1); Anion Gap 7 mmol/L (4-12); Blood Urea Nitrogen 28 mg/dL (9-20); Calcium 8.0 mg/dL (8.4-10.2); Carbon Dioxide 19 mmol/L (22-30); Chloride 110 mmol/L (98-107); Estimated CRCL calculation 43 ml/min; Estimated Glomerular Filt Rate 33; Glucose 118 mg/dL (65-110); Magnesium 1.7 mg/dL (1.6-2.3); Potassium 4.1 mmol/L (3.4-5.0); Sodium 136 mmol/L (137-145)
[2025-10-02 02:42] LABS: Partial Thromboplastin Time 110.2 Seconds (22.3-36.8)
[2025-10-02] MEDS: SODIUM CHLORIDE 0.9% IV 500 ML 75 ML IV CONT ×4 (03:30→21:04)
[2025-10-02 08:39] LABS: Partial Thromboplastin Time 68.9 Seconds (22.3-36.8)
[2025-10-02] MEDS: ASPIRIN 81 MG CHEWABLE TABLET PO (08:52)
[2025-10-02] MEDS: FOLIC ACID 1 MG TABLET PO (08:52)
[2025-10-02] MEDS: DOXYCYCLINE HYCLATE 100 MG TABLET PO ×2 (08:52→20:55)
[2025-10-02] MEDS: PANTOPRAZOLE 40 MG TABLET PO ×2 (08:52→20:56)
[2025-10-02] MEDS: EUCERIN CREAM 454 GM JAR 1 APPLIC TOPICAL (08:53)
[2025-10-02] MEDS: HEPARIN SOD/D5W 100 UNITS/ML 25,000 UNITS/250 ML BAG 13 UNITS IV CONT ×2 (08:53→21:09)
[2025-10-02] MEDS: TAMSULOSIN HCL 0.4 MG CAPSULE PO (09:00)
--- NOTE | 2025-10-02 10:12 | WPDHPUPDATE1 ---
History and Physical Update Update Date/Time: 10/02/25 10:12 History and Physical has been reviewed, including an updated exam of the patient. There are NO changes in the patient's condition. Risks, benefits, and alternatives have been discussed and questions answered. Patient agrees to proceed with procedure.
--- NOTE | 2025-10-02 10:13 | WPDMODSED ---
Moderate Sedation Note-Pt Data Patient Data Allergies Allergy/AdvReac Type Severity Reaction Status Date / Time tramadol AdvReac Hallucinati Verified 09/30/25 00:20 ng Home Medications ?Medication ?Instructions ?Recorded ?Confirmed ?Type gabapentin 300 mg capsule 400 mg PO QID PRN Muscle Pain 04/27/20 09/30/25 History atorvastatin 80 mg tablet 40 mg PO QPM 03/23/23 09/30/25 History sertraline 100 mg tablet 200 mg PO HS 03/23/23 09/30/25 History aspirin 81 mg chewable tablet 1 tablet PO DAILY 03/28/25 09/30/25 History carvedilol 25 mg tablet 25 mg PO Q12H 03/28/25 09/30/25 History ergocalciferol (vitamin D2) 1,250 1,250 mcg PO WEEKLY 03/28/25 09/30/25 History mcg (50,000 unit) capsule folic acid 1 mg tablet 1 mg PO DAILY 03/28/25 09/30/25 History hydralazine 25 mg tablet 25 mg PO DAILY 03/28/25 09/30/25 History losartan 50 mg tablet 50 mg PO DAILY 03/28/25 09/30/25 History pantoprazole 40 mg tablet,delayed 40 mg PO Q12H 03/28/25 09/30/25 History release rivaroxaban 20 mg tablet (Xarelto) 20 mg PO QPM 03/28/25 09/30/25 History zolpidem 10 mg tablet 10 mg PO QHS 03/28/25 09/30/25 History ondansetron 4 mg disintegrating 4 mg translingual Q8H PRN nausea 05/14/25 09/30/25 History tablet and vomiting oxycodone 5 mg tablet 5 mg PO Q6H PRN pain #12 tabs 05/16/25 09/30/25 Rx empagliflozin 10 mg tablet 10 mg PO DAILY 09/30/25 09/30/25 History (Jardiance) metoprolol succinate 25 mg 25 mg PO DAILY 09/30/25 09/30/25 History tablet,extended release 24 hr Current Medications: Active Medications Acetaminophen (Acetaminophen 325 Mg Tablet) 650 mg PO Q4H PRN PRN Reason: Mild Pain (1-3) or Fever Last Admin: 09/30/25 00:48 Dose: 650 mg Albuterol/Ipratropium (Ipratropium 0.5 Mg/Albuterol Sulfate 2.5 Mg (Base) Ampul.Neb 3 Ml) 3 ml INHALATION Q6HRT PRN PRN Reason: Shortness Of Breath Or Wheezing Aspirin (Aspirin 81 Mg Chewable Tablet) 81 mg PO DAILY@0800 [facility] Last Admin: 10/02/25 08:52 Dose: 81 mg Atorvastatin Calcium (Atorvastatin 40 Mg Tablet) 40 mg PO QHS [facility] Last Admin: 10/01/25 20:40 Dose: 40 mg Carvedilol (Carvedilol 25 Mg Tablet) 25 mg PO Q12HR [facility] Last Admin: 10/02/25 09:04 Dose: 25 mg Dextrose (Dextrose 50% 25 Gm/50 Ml Syringe) 12.5 gm IV PUSH PRN PRN; Protocol PRN Reason: Hypoglycemia Doxycycline Hyclate (Doxycycline Hyclate 100 Mg Tablet) 100 mg PO Q12HR [facility] Stop: 10/03/25 09:01 Last Admin: 10/02/25 08:52 Dose: 100 mg Empagliflozin (Empagliflozin 10 Mg Tablet) 10 mg PO DAILY [facility] On Hold: 10/01/25 08:43 Last Admin: 09/30/25 09:38 Dose: 10 mg Folic Acid (Folic Acid 1 Mg Tablet) 1 mg PO DAILY [facility] Last Admin: 10/02/25 08:52 Dose: 1 mg Gabapentin (Gabapentin 400 Mg Capsule) 400 mg PO QID PRN PRN Reason: Muscle Pain Glucagon (Glucagon For Inj 1 Mg Vial) 1 mg IM PRN PRN; Protocol PRN Reason: Hypoglycemia Glucose (Glucose Oral Gel 15 Gm Of Glucse In 37.5 Gm Tube) 15 gm PO PRN PRN; Protocol PRN Reason: Hypoglycemia Heparin Sodium (Porcine) (Heparin Sodium 5,000 Units/Ml Vial) 4,000 units IV PUSH PRN PRN PRN Reason: aPTT less than 55 seconds Last Admin: 10/01/25 19:45 Dose: 4,000 units Heparin Sodium (Porcine) (Heparin Sodium 5,000 Units/Ml Vial) 3,500 units IV PUSH PRN PRN PRN Reason: aPTT 55 - 70 seconds Last Admin: 10/02/25 09:01 Dose: 3,500 units Hydralazine HCl (Hydralazine Hcl 25 Mg Tablet) 25 mg PO DAILY REYNA On Hold: 09/30/25 17:59 Last Admin: 09/30/25 09:40 Dose: 25 mg Ceftriaxone Sodium 1 gm/ (Sodium Chloride) 50 mls @ 100 mls/hr IVPB Q24H [facility] Last Admin: 10/01/25 20:42 Dose: 100 mls/hr Dextrose (Dextrose 5% 1,000 Ml) 1,000 mls @ 100 mls/hr IVPB PRN PRN; Protocol PRN Reason: Hypoglycemia Heparin Sodium/Dextrose (Heparin Sodium/D5w 100 Units/Ml) 25,000 units in 250 mls @ 13 mls/hr IV CONT .[id number] [facility]; Protocol Last Admin: 10/02/25 08:53 Dose: 1,300 units/hr, 13 mls/hr Sodium Chloride (Normal Saline Iv) 500 mls @ 75 mls/hr IV CONT .Q6H40M [facility] Last Admin: 10/02/25 03:30 Dose: 75 mls/hr Insulin Aspart (Insulin Aspart (*Bkc) 100 Units/Ml) 2 - 5 units SUB-Q TIDWM [facility]; Protocol Last Admin: 10/02/25 08:53 Dose: Not Given Losartan Potassium (Losartan Potassium 50 Mg Tablet) 50 mg PO DAILY [facility] On Hold: 10/01/25 08:43 Last Admin: 09/30/25 09:39 Dose: 50 mg Morphine Sulfate (Morphine Sulfate (*Crx) 4 Mg/Ml Inj) 1 mg IV PUSH Q4H PRN PRN Reason: Pain Rated 7-10 Multi-Ingred Cream/Lotion/Oil/Oint (Eucerin Cream 454 Gm Jar) 1 applic TOPICAL DAILY [facility] Last Admin: 10/02/25 08:53 Dose: 1 applic Oxycodone HCl (Oxycodone Hcl (*Crx) 5 Mg Tab Ir) 5 mg PO Q6H PRN PRN Reason: Pain 7-10 Last Admin: 10/01/25 18:09 Dose: 5 mg Pantoprazole Sodium (Pantoprazole 40 Mg Tablet) 40 mg PO Q12HR [facility] Last Admin: 10/02/25 08:52 Dose: 40 mg Rivaroxaban (Rivaroxaban 20 Mg Tablet) 20 mg PO DAILY@1700 [facility] On Hold: 09/30/25 17:00 Last Admin: 09/30/25 18:16 Dose: Not Given Sertraline HCl (Sertraline Hcl 50 Mg Tablet) 200 mg PO HS [facility] Last Admin: 10/01/25 20:41 Dose: 200 mg Tamsulosin HCl (Tamsulosin Hcl 0.4 Mg Capsule) 0.4 mg PO QAM [facility] Last Admin: 10/02/25 09:00 Dose: 0.4 mg Zolpidem Tartrate (Zolpidem Tartrate (*Crx) 5 Mg Tablet) 10 mg PO QHS PRN PRN Reason: Insomnia Last Admin: 10/01/25 21:05 Dose: 10 mg Sedation/Anesthesia: No previous sedation/anesthesia problems (including family history). 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 Psoriasis Eczema Hepatic steatosis Esophagitis with gastritis Chronic kidney disease, stage 3b With baseline creatinine ranging between 1.45 and 1.6 Diabetic nephropathy Hyperlipidemia Mitral regurgitation Diabetic neuropathy DM2 (diabetes mellitus, type 2) Now diet controlled due to 200 lb weight loss previously was insulin-dependent HTN (hypertension) with goal to be determined Kidney stones COPD (chronic obstructive pulmonary disease) Depression with anxiety History of COPD History of hypertension Surgical History Surgical History History of amputation of right great toe Partial amputation of right great toe 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 Patient had a metal mitral valve replacement place in 2022 and had 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 with secondary tissue valve replacement within 2 weeks of original procedure H/O tooth extraction History of lithotripsy (~2019) Right kidney History of cardiac catheterization 2013, no coronary artery disease with repeat heart catheterization 2022 with placement of 2 stents Family History Family History Mother Cerebrovascular accident Hypertension Depression Father Diabetes mellitus Heart disease Cancer before age 60 Acute myocardial infarction Grandparent Heart disease COPD (chronic obstructive pulmonary disease) Kidney disease Social History Social History (Updated 10/01/25 @ 21:30 by Ashly Salas APRN) Social History: The patient is and lives with his He has 3 children. 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 He used to smoke 2-3 packs of cigarettes per day but quit smoking in 2022 when he had his mitral valve replaced. He denies any alcohol. He uses marijuana. Code status: Full code Surrogate decision maker: Malia () Smoking packs per day: 2 Smoking cigarettes per day: 40.0 Years smoked: 30 Smoking pack-years: 60.00 Smoking status: Former smoker Tobacco type: cigarettes Second hand tobacco smoke exposure: No Alcohol intake: never Substance use: current Substance use type: marijuana Last use: 09/16/25 Do You Feel Safe in your Home?: Yes Lack of Transportation: No Lack of Food: Never True Current Housing: I Have Housing Concerned About Future Housing: No Difficulty Paying Gas/Electric Bills: No Difficulty Paying for Meds: No Currently Unemployed: No Education: High School Diploma/GED Difficulty w/ Childcare or Family Care: No Gender identity (if verbalized by the patient): Male Spiritual care concerns: No Mod Sed Physical Exam Physical Exam Pre Procedural Exam: Normal: Lungs, Heart Size, Heart Rate and Heart Rhythm Hours since solid foods: 12 Hours since liquid intake: 12 Mallampati Classification: class II and class III Internal Medicine - PN: Obj Da Vital Signs Vital Signs: Vital Signs - 24 hr 10/01/25 12:00 10/01/25 12:00 10/01/25 12:00 Temperature 36.4 C Pulse Rate 54 L 58 L Respiratory Rate 12 Blood Pressure 131/75 Pulse Oximetry 99 Oxygen Delivery Room Air 10/01/25 14:00 10/01/25 16:00 10/01/25 16:00 Temperature 36.4 C Pulse Rate 53 L 56 L Respiratory Rate 12 Blood Pressure 100/45 L Pulse Oximetry 100 Oxygen Delivery Room Air 10/01/25 16:00 10/01/25 18:00 10/01/25 19:46 Temperature 36.5 C Pulse Rate 54 L 57 L 59 L Respiratory Rate 16 Blood Pressure 117/55 L Pulse Oximetry 100 Oxygen Delivery 10/01/25 20:00 10/01/25 20:00 10/01/25 21:04 Temperature Pulse Rate 58 L 60 Respiratory Rate Blood Pressure Pulse Oximetry Oxygen Delivery Room Air 10/01/25 22:00 10/02/25 00:00 10/02/25 00:00 Temperature Pulse Rate 59 L 54 L Respiratory Rate Blood Pressure Pulse Oximetry Oxygen Delivery Room Air 10/02/25 00:00 10/02/25 02:00 10/02/25 04:00 Temperature 36.5 C Pulse Rate 53 L 53 L Respiratory Rate 14 Blood Pressure 102/45 L Pulse Oximetry 97 Oxygen Delivery Room Air 10/02/25 04:00 10/02/25 04:00 10/02/25 06:00 Temperature 36.5 C Pulse Rate 56 L 56 L 53 L Respiratory Rate 18 Blood Pressure 110/57 L Pulse Oximetry 99 Oxygen Delivery 10/02/25 07:42 10/02/25 09:04 Temperature 36.6 C Pulse Rate 54 L 55 L Respiratory Rate 14 Blood Pressure 119/56 L Pulse Oximetry 100 Oxygen Delivery Intake/Output Intake/Output: Intake & Output 09/29/25 09/30/25 10/01/25 10/02/25 23:59 23:59 23:59 23:59 Intake Total 1300 1044.2 2807.8 1116.0 Output Total 700 1500 750 Balance 1300 344.2 1307.8 366.0 Meds/Results Medications: Active Medications Generic Name Dose Route Start Last Admin Trade Name Freq PRN Reason Stop Dose Admin Acetaminophen 650 mg 09/29/25 22:33 09/30/25 00:48 Acetaminophen 325 Mg Tablet PO 650 mg Q4H PRN Administration Mild Pain (1-3) or Fever Albuterol/Ipratropium 3 ml 09/30/25 18:07 Ipratropium 0.5 Mg/Albuterol Sulfate 2.5 Mg (Base) Ampul.Neb 3 Ml INHALATION Q6HRT PRN Shortness Of Breath Or Wheezing Aspirin 81 mg 09/30/25 08:00 10/02/25 08:52 Aspirin 81 Mg Chewable Tablet PO 81 mg DAILY@0800 [facility]NA Administration Atorvastatin Calcium 40 mg 09/30/25 21:00 10/01/25 20:40 Atorvastatin 40 Mg Tablet PO 40 mg QHS REYNA Administration Carvedilol 25 mg 09/30/25 03:27 10/02/25 09:04 Carvedilol 25 Mg Tablet PO 25 mg Q12HR REYNA Administration Dextrose 12.5 gm 09/30/25 03:47 Dextrose 50% 25 Gm/50 Ml Syringe IV PUSH PRN PRN Hypoglycemia Protocol Doxycycline Hyclate 100 mg 10/01/25 21:00 10/02/25 08:52 Doxycycline Hyclate 100 Mg Tablet PO 10/03/25 09:01 100 mg Q12HR REYNA Administration Empagliflozin 10 mg 09/30/25 09:00 09/30/25 09:38 Empagliflozin 10 Mg Tablet PO 10 mg On Hold: 10/01/25 08:43 DAILY RE[facility]NA Administration Folic Acid 1 mg 09/30/25 09:00 10/02/25 08:52 Folic Acid 1 Mg Tablet PO 1 mg DAILY REYNA Administration Gabapentin 400 mg 09/30/25 02:29 Gabapentin 400 Mg Capsule PO QID PRN Muscle Pain Glucagon 1 mg 09/30/25 03:47 Glucagon For Inj 1 Mg Vial IM PRN PRN Hypoglycemia Protocol Glucose 15 gm 09/30/25 03:47 Glucose Oral Gel 15 Gm Of Glucse In 37.5 Gm Tube PO PRN PRN Hypoglycemia Protocol Heparin Sodium (Porcine) 4,000 units 10/01/25 11:43 10/01/25 19:45 Heparin Sodium 5,000 Units/Ml Vial IV PUSH 4,000 units PRN PRN Administration aPTT less than 55 seconds Heparin Sodium (Porcine) 3,500 units 10/01/25 11:43 10/02/25 09:01 Heparin Sodium 5,000 Units/Ml Vial IV PUSH 3,500 units PRN PRN Administration aPTT 55 - 70 seconds Hydralazine HCl 25 mg 09/30/25 09:00 09/30/25 09:40 Hydralazine Hcl 25 Mg Tablet PO 25 mg On Hold: 09/30/25 17:59 DAILY REYNA Administration Ceftriaxone Sodium 1 gm/ 50 mls @ 100 mls/hr 09/30/25 21:00 10/01/25 20:42 Sodium Chloride IVPB 100 mls/hr Q24H [facility]NA Administration Dextrose 1,000 mls @ 100 mls/hr 09/30/25 03:47 Dextrose 5% 1,000 Ml IVPB PRN PRN Hypoglycemia Protocol Heparin Sodium/Dextrose 25,000 units in 250 mls @ 13 mls/hr 10/01/25 11:45 10/02/25 08:53 Heparin Sodium/D5w 100 Units/Ml IV CONT 1,300 units/hr .[id number] REYNA 13 mls/hr Protocol Administration 1,300 UNITS/HR Sodium Chloride 500 mls @ 75 mls/hr 10/01/25 12:15 10/02/25 03:30 Normal Saline Iv IV CONT 75 mls/hr .Q6H40M [facility]NA Administration Insulin Aspart 2 - 5 units 09/30/25 08:00 10/02/25 08:53 Insulin Aspart (*Bkc) 100 Units/Ml SUB-Q Not Given TIDWM [facility] Protocol Losartan Potassium 50 mg 09/30/25 09:00 09/30/25 09:39 Losartan Potassium 50 Mg Tablet PO 50 mg On Hold: 10/01/25 08:43 DAILY REYNA Administration Morphine Sulfate 1 mg 09/30/25 18:07 Morphine Sulfate (*Crx) 4 Mg/Ml Inj IV PUSH Q4H PRN Pain Rated 7-10 Multi-Ingred Cream/Lotion/Oil/Oint 1 applic 10/02/25 09:00 10/02/25 08:53 Eucerin Cream 454 Gm Jar TOPICAL 1 applic DAILY [facility] Administration Oxycodone HCl 5 mg 09/30/25 02:29 10/01/25 18:09 Oxycodone Hcl (*Crx) 5 Mg Tab Ir PO 5 mg Q6H PRN Administration Pain 7-10 Pantoprazole Sodium 40 mg 09/30/25 09:00 10/02/25 08:52 Pantoprazole 40 Mg Tablet PO 40 mg Q12HR [facility] Administration Rivaroxaban 20 mg 09/30/25 02:30 09/30/25 18:16 Rivaroxaban 20 Mg Tablet PO Not Given On Hold: 09/30/25 17:00 DAILY@1700 [facility] Sertraline HCl 200 mg 09/30/25 21:00 10/01/25 20:41 Sertraline Hcl 50 Mg Tablet PO 200 mg HS [facility] Administration Tamsulosin HCl 0.4 mg 09/30/25 09:00 10/02/25 09:00 Tamsulosin Hcl 0.4 Mg Capsule PO 0.4 mg QAM [facility] Administration Zolpidem Tartrate 10 mg 09/30/25 15:29 10/01/25 21:05 Zolpidem Tartrate (*Crx) 5 Mg Tablet PO 10 mg QHS PRN Administration Insomnia Radiology Results: ITS Impressions Abdomen/Pelvis CT 09/29/25 21:17 IMPRESSION: 1. 10 mm calculus in the right kidney lower calyx. Mild prominence of right renal pelvis. Mild perinephric stranding around the kidney, suggesting possible pyelonephritis. 2. No evidence of hydroureter. No bladder calculus. Chest X-Ray 10/01/25 11:58 IMPRESSION: 1. Improving interstitial pulmonary edema. Labs 10/02/25 02:15 10/02/25 02:15 Labs: Laboratory Results - last 24 hr 10/01/25 10/01/25 10/01/25 11:28 11:51 16:09 WBC 6.1 RBC 3.59 L Hgb 9.9 L Hct 31.8 L MCV 88.6 MCH 27.6 MCHC 31.1 L RDW 16.8 H Plt Count 178 MPV 10.6 H Immature Gran % (Auto) 0.2 Neut % (Auto) 53.4 Lymph % (Auto) 35.7 Kinney % (Auto) 7.9 Eos % (Auto) 2.1 Baso % (Auto) 0.7 Lymph # (Auto) 2.17 Kinney # (Auto) 0.5 Eos # (Auto) 0.1 Baso # (Auto) 0.0 Abs Immat Gran (auto) 0.01 Absolute Neuts (auto) 3.2 Absolute Nucleated RBC 0.000 Nucleated RBC % 0.0 PT 16.9 H INR 1.4 APTT 42.2 H Sodium Potassium Chloride Carbon Dioxide Anion Gap BUN Creatinine Estim Creat Clear Calc Estimated GFR Glucose POC Capillary Glucose 94 138 H Calcium Phosphorus Magnesium Albumin 10/01/25 10/01/25 10/02/25 19:03 20:49 02:15 WBC 5.0 RBC 3.01 L Hgb 8.3 L Hct 26.7 L MCV 88.7 MCH 27.6 MCHC 31.1 L RDW 16.6 H Plt Count 153 MPV 11.3 H Immature Gran % (Auto) 0.2 Neut % (Auto) 45.9 Lymph % (Auto) 41.3 Kinney % (Auto) 8.4 Eos % (Auto) 3.4 Baso % (Auto) 0.8 Lymph # (Auto) 2.06 Kinney # (Auto) 0.4 Eos # (Auto) 0.2 Baso # (Auto) 0.0 Abs Immat Gran (auto) 0.01 Absolute Neuts (auto) 2.3 Absolute Nucleated RBC 0.000 Nucleated RBC % 0.0 PT INR APTT 53.6 H 110.2 H Sodium 136 L Potassium 4.1 Chloride 110 H Carbon Dioxide 19 L Anion Gap 7 BUN 28 H Creatinine 2.20 H Estim Creat Clear Calc 43 Estimated GFR 33 L Glucose 118 H POC Capillary Glucose 167 H Calcium 8.0 L Phosphorus 4.2 Magnesium 1.7 Albumin 3.3 L 10/02/25 10/02/25 07:27 08:18 WBC RBC Hgb Hct MCV MCH MCHC RDW Plt Count MPV Immature Gran % (Auto) Neut % (Auto) Lymph % (Auto) Kinney % (Auto) Eos % (Auto) Baso % (Auto) Lymph # (Auto) Kinney # (Auto) Eos # (Auto) Baso # (Auto) Abs Immat Gran (auto) Absolute Neuts (auto) Absolute Nucleated RBC Nucleated RBC % PT INR APTT 68.9 H Sodium Potassium Chloride Carbon Dioxide Anion Gap BUN Creatinine Estim Creat Clear Calc Estimated GFR Glucose POC Capillary Glucose 131 H Calcium Phosphorus Magnesium Albumin ASA Classification/Sedation ASA Classification/Sedation ASA Class: IV Emergent: No Risks: Risks, benefits and alternatives explained and patient/family accepted plan for sedation. Patient re-evaluated immediately prior to sedation.
--- NOTE | 2025-10-02 10:13 | PM.PNCARD ---
Progress Note: A&P Assessment and Plan (1) Elevated troponin: Code(s): R79.89 - Other specified abnormal findings of blood chemistry Status: Acute (2) Cardiomyopathy: Code(s): I42.9 - Cardiomyopathy, unspecified Status: Acute Plan Assessment: Elevated troponin without any chest pain- degree of troponin elevation is significant and concerning for underlying obstructive coronary artery disease; other differential includes type 2 PR due to ongoing sepsis versus stress cardiomyopathy New onset cardiomyopathy EF35%-stress cardiomyopathy versus CAD History of mitral valve replacement redo Dec 2023 (29 [address] II) Paroxysmal atrial flutter SARAH on CKD stage 3-EGFR 33 today Hypertension-controlled Sepsis and pyelonephritis-management per primary team 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 His creatinine is still high at 2.2 with GFR of 33. Given SARAH on CKD and no chest pain, I recommend check troponin to ensure down trend and plan for left heart catheterization in a.m. tomorrow if renal function continues to improve. Continue IV fluids Continue to hold Xarelto for left heart catheterization Continue heparin drip Continue Aspirin, statin, Coreg Guideline directed medical therapy for new onset cardiomyopathy. Continue beta-loida, empagliflozin. Holding ANABELLA-inhibitor due to SARAH on CKD Check and replace electrolytes to keep potassium greater than 4 and magnesium greater than 2 Management of sepsis per primary team Subjective Date/time seen: 10/02/25 10:13 Interval history: Reason for encounter: Elevated troponin, new cardiomyopathy with LVEF dropped to 35% (last echo in 09/2023 showed normal LVEF) Relevant history. 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 He was diagnosed with pneumonia, sepsis, UTI and is on IV antibiotic therapy. He was noted to have SARAH on CKD with creatinine up to 2.3 from baseline of 1.75. He was noted to have elevated troponins up to 14.4, [place] [address], and a new cardiomyopathy with LVEF of 35% for which Cardiology was consulted. Patient has no chest pain either prior to or after admission. Interval history: Patient denies chest pain. Shortness of breath is resolved. No dizziness, lightheadedness. Telemetry shows sinus rhythm. EKG shows sinus bradycardia with prolonged QT interval and no new ST or T-wave changes Review of Systems Review of Systems: A complete review of systems was performed and pertinent positives are reported in HPI. Exam Narrative: General: Alert oriented x3, no acute distress Neck: Supple, no JVD Chest: Bilaterally clear to auscultation, no rales or rhonchi Cardiac: S1, S2 +, regular rate, regular rhythm, no murmurs or rubs Extremities: No pedal edema, no skin rash Neurologic: Alert and oriented x3, no focal neurological deficits Objective Data Vital Signs Vital Signs: Vital Signs - 24 hr 10/01/25 12:00 10/01/25 12:00 10/01/25 12:00 Temperature 36.4 C Pulse Rate 54 L 58 L Respiratory Rate 12 Blood Pressure 131/75 Pulse Oximetry 99 Oxygen Delivery Room Air 10/01/25 14:00 10/01/25 16:00 10/01/25 16:00 Temperature 36.4 C Pulse Rate 53 L 56 L Respiratory Rate 12 Blood Pressure 100/45 L Pulse Oximetry 100 Oxygen Delivery Room Air 10/01/25 16:00 10/01/25 18:00 10/01/25 19:46 Temperature 36.5 C Pulse Rate 54 L 57 L 59 L Respiratory Rate 16 Blood Pressure 117/55 L Pulse Oximetry 100 Oxygen Delivery 10/01/25 20:00 10/01/25 20:00 10/01/25 21:04 Temperature Pulse Rate 58 L 60 Respiratory Rate Blood Pressure Pulse Oximetry Oxygen Delivery Room Air 10/01/25 22:00 10/02/25 00:00 10/02/25 00:00 Temperature Pulse Rate 59 L 54 L Respiratory Rate Blood Pressure Pulse Oximetry Oxygen Delivery Room Air 10/02/25 00:00 10/02/25 02:00 10/02/25 04:00 Temperature 36.5 C Pulse Rate 53 L 53 L Respiratory Rate 14 Blood Pressure 102/45 L Pulse Oximetry 97 Oxygen Delivery Room Air 10/02/25 04:00 10/02/25 04:00 10/02/25 06:00 Temperature 36.5 C Pulse Rate 56 L 56 L 53 L Respiratory Rate 18 Blood Pressure 110/57 L Pulse Oximetry 99 Oxygen Delivery 10/02/25 07:42 10/02/25 09:04 Temperature 36.6 C Pulse Rate 54 L 55 L Respiratory Rate 14 Blood Pressure 119/56 L Pulse Oximetry 100 Oxygen Delivery Intake/Output Intake/Output: Intake & Output 09/29/25 09/30/25 10/01/25 10/02/25 23:59 23:59 23:59 23:59 Intake Total 1300 1044.2 2807.8 1116.0 Output Total 700 1500 750 Balance 1300 344.2 1307.8 366.0 Meds/Results Medications: Active Medications Generic Name Dose Route Start Last Admin Trade Name Freq PRN Reason Stop Dose Admin Acetaminophen 650 mg 09/29/25 22:33 09/30/25 00:48 Acetaminophen 325 Mg Tablet PO 650 mg Q4H PRN Administration Mild Pain (1-3) or Fever Albuterol/Ipratropium 3 ml 09/30/25 18:07 Ipratropium 0.5 Mg/Albuterol Sulfate 2.5 Mg (Base) Ampul.Neb 3 Ml INHALATION Q6HRT PRN Shortness Of Breath Or Wheezing Aspirin 81 mg 09/30/25 08:00 10/02/25 08:52 Aspirin 81 Mg Chewable Tablet PO 81 mg DAILY@0800 REYNA Administration Atorvastatin Calcium 40 mg 09/30/25 21:00 10/01/25 20:40 Atorvastatin 40 Mg Tablet PO 40 mg QHS REYNA Administration Carvedilol 25 mg 09/30/25 03:27 10/02/25 09:04 Carvedilol 25 Mg Tablet PO 25 mg Q12HR REYNA Administration Dextrose 12.5 gm 09/30/25 03:47 Dextrose 50% 25 Gm/50 Ml Syringe IV PUSH PRN PRN Hypoglycemia Protocol Doxycycline Hyclate 100 mg 10/01/25 21:00 10/02/25 08:52 Doxycycline Hyclate 100 Mg Tablet PO 10/03/25 09:01 100 mg Q12HR REYNA Administration Empagliflozin 10 mg 09/30/25 09:00 09/30/25 09:38 Empagliflozin 10 Mg Tablet PO 10 mg On Hold: 10/01/25 08:43 DAILY REYNA Administration Folic Acid 1 mg 09/30/25 09:00 10/02/25 08:52 Folic Acid 1 Mg Tablet PO 1 mg DAILY REYNA Administration Gabapentin 400 mg 09/30/25 02:29 Gabapentin 400 Mg Capsule PO QID PRN Muscle Pain Glucagon 1 mg 09/30/25 03:47 Glucagon For Inj 1 Mg Vial IM PRN PRN Hypoglycemia Protocol Glucose 15 gm 09/30/25 03:47 Glucose Oral Gel 15 Gm Of Glucse In 37.5 Gm Tube PO PRN PRN Hypoglycemia Protocol Heparin Sodium (Porcine) 4,000 units 10/01/25 11:43 10/01/25 19:45 Heparin Sodium 5,000 Units/Ml Vial IV PUSH 4,000 units PRN PRN Administration aPTT less than 55 seconds Heparin Sodium (Porcine) 3,500 units 10/01/25 11:43 10/02/25 09:01 Heparin Sodium 5,000 Units/Ml Vial IV PUSH 3,500 units PRN PRN Administration aPTT 55 - 70 seconds Hydralazine HCl 25 mg 09/30/25 09:00 09/30/25 09:40 Hydralazine Hcl 25 Mg Tablet PO 25 mg On Hold: 09/30/25 17:59 DAILY REYNA Administration Ceftriaxone Sodium 1 gm/ 50 mls @ 100 mls/hr 09/30/25 21:00 10/01/25 20:42 Sodium Chloride IVPB 100 mls/hr Q24H REYNA Administration Dextrose 1,000 mls @ 100 mls/hr 09/30/25 03:47 Dextrose 5% 1,000 Ml IVPB PRN PRN Hypoglycemia Protocol Heparin Sodium/Dextrose 25,000 units in 250 mls @ 13 mls/hr 10/01/25 11:45 10/02/25 08:53 Heparin Sodium/D5w 100 Units/Ml IV CONT 1,300 units/hr .[id number] REYNA 13 mls/hr Protocol Administration 1,300 UNITS/HR Sodium Chloride 500 mls @ 75 mls/hr 10/01/25 12:15 10/02/25 03:30 Normal Saline Iv IV CONT 75 mls/hr .[id number] REYNA Administration Insulin Aspart 2 - 5 units 09/30/25 08:00 10/02/25 08:53 Insulin Aspart (*Bkc) 100 Units/Ml SUB-Q Not Given TIDWM [facility] Protocol Losartan Potassium 50 mg 09/30/25 09:00 09/30/25 09:39 Losartan Potassium 50 Mg Tablet PO 50 mg On Hold: 10/01/25 08:43 DAILY REYNA Administration Morphine Sulfate 1 mg 09/30/25 18:07 Morphine Sulfate (*Crx) 4 Mg/Ml Inj IV PUSH Q4H PRN Pain Rated 7-10 Multi-Ingred Cream/Lotion/Oil/Oint 1 applic 10/02/25 09:00 10/02/25 08:53 Eucerin Cream 454 Gm Jar TOPICAL 1 applic DAILY REYNA Administration Oxycodone HCl 5 mg 09/30/25 02:29 10/01/25 18:09 Oxycodone Hcl (*Crx) 5 Mg Tab Ir PO 5 mg Q6H PRN Administration Pain 7-10 Pantoprazole Sodium 40 mg 09/30/25 09:00 10/02/25 08:52 Pantoprazole 40 Mg Tablet PO 40 mg Q12HR [facility] Administration Rivaroxaban 20 mg 09/30/25 02:30 09/30/25 18:16 Rivaroxaban 20 Mg Tablet PO Not Given On Hold: 09/30/25 17:00 DAILY@1700 [facility] Sertraline HCl 200 mg 09/30/25 21:00 10/01/25 20:41 Sertraline Hcl 50 Mg Tablet PO 200 mg HS [facility] Administration Tamsulosin HCl 0.4 mg 09/30/25 09:00 10/02/25 09:00 Tamsulosin Hcl 0.4 Mg Capsule PO 0.4 mg QAM [facility] Administration Zolpidem Tartrate 10 mg 09/30/25 15:29 10/01/25 21:05 Zolpidem Tartrate (*Crx) 5 Mg Tablet PO 10 mg QHS PRN Administration Insomnia Radiology Results: ITS Impressions Abdomen/Pelvis CT 09/29/25 21:17 IMPRESSION: 1. 10 mm calculus in the right kidney lower calyx. Mild prominence of right renal pelvis. Mild perinephric stranding around the kidney, suggesting possible pyelonephritis. 2. No evidence of hydroureter. No bladder calculus. Chest X-Ray 10/01/25 11:58 IMPRESSION: 1. Improving interstitial pulmonary edema. Labs Labs: Laboratory Results - last 24 hr 10/01/25 10/01/25 10/01/25 11:28 11:51 16:09 WBC 6.1 RBC 3.59 L Hgb 9.9 L Hct 31.8 L MCV 88.6 MCH 27.6 MCHC 31.1 L RDW 16.8 H Plt Count 178 MPV 10.6 H Immature Gran % (Auto) 0.2 Neut % (Auto) 53.4 Lymph % (Auto) 35.7 Yancey % (Auto) 7.9 Eos % (Auto) 2.1 Baso % (Auto) 0.7 Lymph # (Auto) 2.17 Yancey # (Auto) 0.5 Eos # (Auto) 0.1 Baso # (Auto) 0.0 Abs Immat Gran (auto) 0.01 Absolute Neuts (auto) 3.2 Absolute Nucleated RBC 0.000 Nucleated RBC % 0.0 PT 16.9 H INR 1.4 APTT 42.2 H Sodium Potassium Chloride Carbon Dioxide Anion Gap BUN Creatinine Estim Creat Clear Calc Estimated GFR Glucose POC Capillary Glucose 94 138 H Calcium Phosphorus Magnesium Albumin 10/01/25 10/01/25 10/02/25 19:03 20:49 02:15 WBC 5.0 RBC 3.01 L Hgb 8.3 L Hct 26.7 L MCV 88.7 MCH 27.6 MCHC 31.1 L RDW 16.6 H Plt Count 153 MPV 11.3 H Immature Gran % (Auto) 0.2 Neut % (Auto) 45.9 Lymph % (Auto) 41.3 Yancey % (Auto) 8.4 Eos % (Auto) 3.4 Baso % (Auto) 0.8 Lymph # (Auto) 2.06 Yancey # (Auto) 0.4 Eos # (Auto) 0.2 Baso # (Auto) 0.0 Abs Immat Gran (auto) 0.01 Absolute Neuts (auto) 2.3 Absolute Nucleated RBC 0.000 Nucleated RBC % 0.0 PT INR APTT 53.6 H 110.2 H Sodium 136 L Potassium 4.1 Chloride 110 H Carbon Dioxide 19 L Anion Gap 7 BUN 28 H Creatinine 2.20 H Estim Creat Clear Calc 43 Estimated GFR 33 L Glucose 118 H POC Capillary Glucose 167 H Calcium 8.0 L Phosphorus 4.2 Magnesium 1.7 Albumin 3.3 L 10/02/25 10/02/25 07:27 08:18 WBC RBC Hgb Hct MCV MCH MCHC RDW Plt Count MPV Immature Gran % (Auto) Neut % (Auto) Lymph % (Auto) Yancey % (Auto) Eos % (Auto) Baso % (Auto) Lymph # (Auto) Yancey # (Auto) Eos # (Auto) Baso # (Auto) Abs Immat Gran (auto) Absolute Neuts (auto) Absolute Nucleated RBC Nucleated RBC % PT INR APTT 68.9 H Sodium Potassium Chloride Carbon Dioxide Anion Gap BUN Creatinine Estim Creat Clear Calc Estimated GFR Glucose POC Capillary Glucose 131 H Calcium Phosphorus Magnesium Albumin
[2025-10-02] MEDS: oxyCODONE HCL (*CRX) 5 MG TAB IR PO ×2 (11:10→19:54)
[2025-10-02 11:20] LABS: Troponin I 1.860 ng/mL (0.000-0.034)
--- NOTE | 2025-10-02 13:29 | P.PNIM_ITS ---
Progress Note: A&P Assessment and Plan (1) Non-ST elevation NC (NSTEMI): Code(s): I21.4 - Non-ST elevation (NSTEMI) myocardial infarction Status: Acute Assessment and Plan: Patient presents to the ED by ambulance from home complaining of nausea, vomiting, SOB and right flank pain. Troponin 2.04 on admission and climbed to 14.4. EKG showing sinus tachycardia (101), possible LAE and nonspecific ST-T wave c hanges. Repeat EKG showing similar findings. Echo showing EF 30-35% with all segments hypokinetic except basal segments (consider stress induced vs multivessel disease), LV enlarged, diastolic dysfun ction, normal appearing bioprosthetic valve, mod pulm HTN. Patient is already on aspirin, beta-loida, atorvastatin on admission Possible multi-vessel disease versus takotsubo. Cardiology consulted. Unclear if patient had LHC prior to his mitral valve surgery in Nov 2023. Continue with aspirin, atorvastatin and carvedilol. Xarelto held and Heparin gtt started. LHC postponed due to rising Cr. Now plan for LHC for tomorrow if Cr better. (2) Pyelonephritis: Code(s): N12 - Tubulo-interstitial nephritis, not specified as acute or chronic Status: Acute Assessment and Plan: CT imaging showing mild perinephri stranding around right kidney. UA showing 3+ protein, tr glucose, 2+ bld, Neg LE/N, 11-20 RBC and no WBC. WBC 13.6K -> normal. The patient is having right sided back tenderness present on admission but suspect musculoskeletal BCx pending. Rocephin started. Follow up Cx results. Continue abx for now. (3) Chronic kidney disease, stage 3b: Code(s): N18.32 - Chronic kidney disease, stage 3b Status: Acute Assessment and Plan: Patient with normal renal function in 2022. Creatinine earlier this year runs 1.4-1.7 range. Creatinine 1.7 on admission. 3+ protein noted with Prot/Cr 3.7gm Cr was up to 2.3 but slightly better today Holding Empagliflozin, Losartan. IV fluids stared. Avoid nephrotoxic medication. Monitor urine output, renal function and electrolytes. (4) Community acquired pneumonia: Code(s): J18.9 - Pneumonia, unspecified organism Status: Acute Assessment and Plan: CXR showing mild CMG and post-op changes with patchy airspace opacities bilateral (R>L) lung bases. Presumed PNA so started on Zithromax and Rocephin. QTC is 478 so Azithro changed to Doxy. CT Abd showing basilar ground glass opacities due to pulmonary edema c/w CHF MRSA nasal swab negative. Cultures obtained. Suspect CHF related to low EF and and less likely PNA. (5) CHF (congestive heart failure): Code(s): I50.9 - Heart failure, unspecified Status: Acute Assessment and Plan: As above. BNP 23K. Suspect acute systolic and diastolic CHF. Repeat CXR showing improved interstitial pulmonary edema. Not currently on diuretics. Monitor (6) HTN (hypertension) with goal to be determined: Code(s): I10 - Essential (primary) hypertension Status: Chronic Assessment and Plan: Patient's blood pressure was reviewed on 10/02 Home medication list: Carvedilol, hydralazine, losartan, metoprolol (hopefully pt not taking two BB) On carvedilol. Hydralazine and losartan held. Blood pressure better and Cr slightly improved. Will continue carvedilol. Follow (7) DM2 (diabetes mellitus, type 2): Qualifiers: Diabetes mellitus complication status: with other specified complication Diabetes mellitus manager long term care insulin use: unspecified manager long term care insulin use status Qualified Code(s): E11.69 - Type 2 diabetes mellitus with other specified complication Code(s): E11.9 - Type 2 diabetes mellitus without complications Status: Acute Assessment and Plan: A1c 5.5%. The patient's blood glucose was reviewed on 10/02 Home meds: Empagliflozin Glucose remains well controlled. Continue AccuCheks covering with sliding scale. Hypoglycemia protocol available as needed. Holding Empagliflozin. 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 Continue heparin drip. (9) COPD (chronic obstructive pulmonary disease): Code(s): J44.9 - Chronic obstructive pulmonary disease, unspecified Status: Chronic Assessment and Plan: Stable. Lungs clear. Remains on room air. Continue with DuoNeb PRN (10) Depression with anxiety: Code(s): F41.8 - Other specified anxiety disorders Status: Chronic Assessment and Plan: Mood stable. Zoloft continued. Ambien available p.r.n.. Plan DVT prophylaxis - Heparin gtt Code status -full Subjective Date/time seen: 10/02/25 13:29 Interval history: 44yo male with DM, HLD, CKD, pAFib and VTE on Xarelto here for complaints of nausea, vomiting and trouble breathing. 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 He did not require bypass. No complaints. No CP or SOB. No n/v. Currently NPO for possible LHC today but this has since by postponed. Exam Narrative: AF 97.6 148/75 56 18 100% ra Gen - NARD Chest - CTA bilaterally, nml RR CV - RRR S1/S2. Tele showing sinus with sinus arrhythmia Abd - Soft, NT/ND, Positive BS Ext - No pedal edema. Psych - Nml mood and affect Skin - Warm and dry. Objective Data Vital Signs Vital Signs: Vital Signs - 24 hr 10/01/25 14:00 10/01/25 16:00 10/01/25 16:00 Temperature 97.6 F Pulse Rate 53 L 56 L Respiratory Rate 12 Blood Pressure 100/45 L Pulse Oximetry 100 Oxygen Delivery Room Air 10/01/25 16:00 10/01/25 18:00 10/01/25 19:46 Temperature 97.7 F Pulse Rate 54 L 57 L 59 L Respiratory Rate 16 Blood Pressure 117/55 L Pulse Oximetry 100 Oxygen Delivery 10/01/25 20:00 10/01/25 20:00 10/01/25 21:04 Temperature Pulse Rate 58 L 60 Respiratory Rate Blood Pressure Pulse Oximetry Oxygen Delivery Room Air 10/01/25 22:00 10/02/25 00:00 10/02/25 00:00 Temperature Pulse Rate 59 L 54 L Respiratory Rate Blood Pressure Pulse Oximetry Oxygen Delivery Room Air 10/02/25 00:00 10/02/25 02:00 10/02/25 04:00 Temperature 97.7 F Pulse Rate 53 L 53 L Respiratory Rate 14 Blood Pressure 102/45 L Pulse Oximetry 97 Oxygen Delivery Room Air 10/02/25 04:00 10/02/25 04:00 10/02/25 06:00 Temperature 97.7 F Pulse Rate 56 L 56 L 53 L Respiratory Rate 18 Blood Pressure 110/57 L Pulse Oximetry 99 Oxygen Delivery 10/02/25 07:42 10/02/25 08:00 10/02/25 08:00 Temperature 97.9 F Pulse Rate 54 L 55 L Respiratory Rate 14 Blood Pressure 119/56 L Pulse Oximetry 100 Oxygen Delivery Room Air 10/02/25 09:04 10/02/25 10:00 10/02/25 11:33 Temperature 97.6 F Pulse Rate 55 L 56 L 56 L Respiratory Rate 18 Blood Pressure 148/75 H Pulse Oximetry 100 Oxygen Delivery Intake/Output Intake/Output: Intake & Output 09/29/25 09/30/25 10/01/25 10/02/25 23:59 23:59 23:59 23:59 Intake Total 1300 1044.2 2807.8 1666.0 Output Total 700 1500 1025 Balance 1300 344.2 1307.8 641.0 Meds/Results Medications: Active Medications Generic Name Dose Route Start Last Admin Trade Name Freq PRN Reason Stop Dose Admin Acetaminophen 650 mg 09/29/25 22:33 09/30/25 00:48 Acetaminophen 325 Mg Tablet PO 650 mg Q4H PRN Administration Mild Pain (1-3) or Fever Albuterol/Ipratropium 3 ml 09/30/25 18:07 Ipratropium 0.5 Mg/Albuterol Sulfate 2.5 Mg (Base) Ampul.Neb 3 Ml INHALATION Q6HRT PRN Shortness Of Breath Or Wheezing Aspirin 81 mg 09/30/25 08:00 10/02/25 08:52 Aspirin 81 Mg Chewable Tablet PO 81 mg DAILY@0800 REYNA Administration Atorvastatin Calcium 40 mg 09/30/25 21:00 10/01/25 20:40 Atorvastatin 40 Mg Tablet PO 40 mg QHS REYNA Administration Carvedilol 25 mg 09/30/25 03:27 10/02/25 09:04 Carvedilol 25 Mg Tablet PO 25 mg Q12HR REYNA Administration Dextrose 12.5 gm 09/30/25 03:47 Dextrose 50% 25 Gm/50 Ml Syringe IV PUSH PRN PRN Hypoglycemia Protocol Doxycycline Hyclate 100 mg 10/01/25 21:00 10/02/25 08:52 Doxycycline Hyclate 100 Mg Tablet PO 10/03/25 09:01 100 mg Q12HR REYNA Administration Empagliflozin 10 mg 09/30/25 09:00 09/30/25 09:38 Empagliflozin 10 Mg Tablet PO 10 mg On Hold: 10/01/25 08:43 DAILY REYNA Administration Folic Acid 1 mg 09/30/25 09:00 10/02/25 08:52 Folic Acid 1 Mg Tablet PO 1 mg DAILY REYNA Administration Gabapentin 400 mg 09/30/25 02:29 Gabapentin 400 Mg Capsule PO QID PRN Muscle Pain Glucagon 1 mg 09/30/25 03:47 Glucagon For Inj 1 Mg Vial IM PRN PRN Hypoglycemia Protocol Glucose 15 gm 09/30/25 03:47 Glucose Oral Gel 15 Gm Of Glucse In 37.5 Gm Tube PO PRN PRN Hypoglycemia Protocol Heparin Sodium (Porcine) 4,000 units 10/01/25 11:43 10/01/25 19:45 Heparin Sodium 5,000 Units/Ml Vial IV PUSH 4,000 units PRN PRN Administration aPTT less than 55 seconds Heparin Sodium (Porcine) 3,500 units 10/01/25 11:43 10/02/25 09:01 Heparin Sodium 5,000 Units/Ml Vial IV PUSH 3,500 units PRN PRN Administration aPTT 55 - 70 seconds Hydralazine HCl 25 mg 09/30/25 09:00 09/30/25 09:40 Hydralazine Hcl 25 Mg Tablet PO 25 mg On Hold: 09/30/25 17:59 DAILY REYNA Administration Ceftriaxone Sodium 1 gm/ 50 mls @ 100 mls/hr 09/30/25 21:00 10/02/25 12:01 Sodium Chloride IVPB Infused Q24H REYNA Infusion Dextrose 1,000 mls @ 100 mls/hr 09/30/25 03:47 Dextrose 5% 1,000 Ml IVPB PRN PRN Hypoglycemia Protocol Heparin Sodium/Dextrose 25,000 units in 250 mls @ 13 mls/hr 10/01/25 11:45 10/02/25 08:53 Heparin Sodium/D5w 100 Units/Ml IV CONT 1,300 units/hr .[id number] REYNA 13 mls/hr Protocol Administration 1,300 UNITS/HR Sodium Chloride 500 mls @ 75 mls/hr 10/01/25 12:15 10/02/25 11:11 Normal Saline Iv IV CONT 75 mls/hr .Q6H40M REYNA Administration Insulin Aspart 2 - 5 units 09/30/25 08:00 10/02/25 11:36 Insulin Aspart (*Bkc) 100 Units/Ml SUB-Q Not Given TIDWM [facility] Protocol Losartan Potassium 50 mg 09/30/25 09:00 09/30/25 09:39 Losartan Potassium 50 Mg Tablet PO 50 mg On Hold: 10/01/25 08:43 DAILY REYNA Administration Morphine Sulfate 1 mg 09/30/25 18:07 Morphine Sulfate (*Crx) 4 Mg/Ml Inj IV PUSH Q4H PRN Pain Rated 7-10 Multi-Ingred Cream/Lotion/Oil/Oint 1 applic 10/02/25 09:00 10/02/25 08:53 Eucerin Cream 454 Gm Jar TOPICAL 1 applic DAILY [facility] Administration Oxycodone HCl 5 mg 09/30/25 02:29 10/02/25 11:10 Oxycodone Hcl (*Crx) 5 Mg Tab Ir PO 5 mg Q6H PRN Administration Pain 7-10 Pantoprazole Sodium 40 mg 09/30/25 09:00 10/02/25 08:52 Pantoprazole 40 Mg Tablet PO 40 mg Q12HR REYNA Administration Rivaroxaban 20 mg 09/30/25 02:30 09/30/25 18:16 Rivaroxaban 20 Mg Tablet PO Not Given On Hold: 09/30/25 17:00 DAILY@1700 [facility] Sertraline HCl 200 mg 09/30/25 21:00 10/01/25 20:41 Sertraline Hcl 50 Mg Tablet PO 200 mg HS [facility] Administration Tamsulosin HCl 0.4 mg 09/30/25 09:00 10/02/25 09:00 Tamsulosin Hcl 0.4 Mg Capsule PO 0.4 mg QAM [facility] Administration Zolpidem Tartrate 10 mg 09/30/25 15:29 10/01/25 21:05 Zolpidem Tartrate (*Crx) 5 Mg Tablet PO 10 mg QHS PRN Administration Insomnia Radiology Results: ITS Impressions Abdomen/Pelvis CT 09/29/25 21:17 IMPRESSION: 1. 10 mm calculus in the right kidney lower calyx. Mild prominence of right renal pelvis. Mild perinephric stranding around the kidney, suggesting possible pyelonephritis. 2. No evidence of hydroureter. No bladder calculus. Chest X-Ray 10/01/25 11:58 IMPRESSION: 1. Improving interstitial pulmonary edema. Labs Labs: Laboratory Results - last 24 hr 10/01/25 10/01/25 10/01/25 16:09 19:03 20:49 WBC RBC Hgb Hct MCV MCH MCHC RDW Plt Count MPV Immature Gran % (Auto) Neut % (Auto) Lymph % (Auto) Blair % (Auto) Eos % (Auto) Baso % (Auto) Lymph # (Auto) Blair # (Auto) Eos # (Auto) Baso # (Auto) Abs Immat Gran (auto) Absolute Neuts (auto) Absolute Nucleated RBC Nucleated RBC % APTT 53.6 H Sodium Potassium Chloride Carbon Dioxide Anion Gap BUN Creatinine Estim Creat Clear Calc Estimated GFR Glucose POC Capillary Glucose 138 H 167 H Calcium Phosphorus Magnesium Troponin I Albumin 10/02/25 10/02/25 10/02/25 02:15 07:27 08:18 WBC 5.0 RBC 3.01 L Hgb 8.3 L Hct 26.7 L MCV 88.7 MCH 27.6 MCHC 31.1 L RDW 16.6 H Plt Count 153 MPV 11.3 H Immature Gran % (Auto) 0.2 Neut % (Auto) 45.9 Lymph % (Auto) 41.3 Blair % (Auto) 8.4 Eos % (Auto) 3.4 Baso % (Auto) 0.8 Lymph # (Auto) 2.06 Blair # (Auto) 0.4 Eos # (Auto) 0.2 Baso # (Auto) 0.0 Abs Immat Gran (auto) 0.01 Absolute Neuts (auto) 2.3 Absolute Nucleated RBC 0.000 Nucleated RBC % 0.0 APTT 110.2 H 68.9 H Sodium 136 L Potassium 4.1 Chloride 110 H Carbon Dioxide 19 L Anion Gap 7 BUN 28 H Creatinine 2.20 H Estim Creat Clear Calc 43 Estimated GFR 33 L Glucose 118 H POC Capillary Glucose 131 H Calcium 8.0 L Phosphorus 4.2 Magnesium 1.7 Troponin I 1.860 H* Albumin 3.3 L 10/02/25 11:26 WBC RBC Hgb Hct MCV MCH MCHC RDW Plt Count MPV Immature Gran % (Auto) Neut % (Auto) Lymph % (Auto) Blair % (Auto) Eos % (Auto) Baso % (Auto) Lymph # (Auto) Blair # (Auto) Eos # (Auto) Baso # (Auto) Abs Immat Gran (auto) Absolute Neuts (auto) Absolute Nucleated RBC Nucleated RBC % APTT Sodium Potassium Chloride Carbon Dioxide Anion Gap BUN Creatinine Estim Creat Clear Calc Estimated GFR Glucose POC Capillary Glucose 116 H Calcium Phosphorus Magnesium Troponin I Albumin
[2025-10-02] MEDS: MAGNESIUM SULF 2 GM/WATER 50ML 2 GM/50 ML BAG IVPB (15:21)
[2025-10-02 15:49] LABS: Partial Thromboplastin Time 82.5 Seconds (22.3-36.8)
[2025-10-02] MEDS: MORPHINE SULFATE (*CRX) 4 MG/ML INJ 1 MG IV PUSH (16:30)
[2025-10-02] MEDS: cefTRIAXone 1 GM in SODIUM CHLORIDE 0.9% IV 50 ML 100 ML IVPB (20:54)
[2025-10-02] MEDS: SERTRALINE HCL 50 MG TABLET 200 MG PO (20:56)
[2025-10-02] MEDS: ATORVASTATIN 40 MG TABLET PO (21:08)
[2025-10-02] MEDS: ZOLPIDEM TARTRATE (*CRX) 5 MG TABLET 10 MG PO (21:08)
[2025-10-02 22:51] LABS: Partial Thromboplastin Time 78.9 Seconds (22.3-36.8)
[2025-10-03] VITALS (29 sets, daily range): BP systolic 119–186; BP diastolic 60–90; PULSE 52–64; RESP 12–20; TEMP 36.4–36.7; O2SAT 98–100
[2025-10-03] MEDS: HEPARIN SOD/D5W 100 UNITS/ML 25,000 UNITS/250 ML BAG 13 UNITS IV CONT (03:40)
[2025-10-03] MEDS: SODIUM CHLORIDE 0.9% IV 500 ML 75 ML IV CONT (03:41)
[2025-10-03 04:37] LABS: Hematocrit 26.3 % (42.0-52.0); Hemoglobin 8.0 g/dL (14.0-18.0); Mean Corpuscular HGB Conc 30.4 g/dl (32-36); Mean Corpuscular Hemoglobin 27.5 pg (26-34); Mean Corpuscular Volume 90.4 fl (80-100); Platelet Count Result 144 k/mm3 (150-375); Red Blood Count 2.91 M/mm3 (4.6-6.20); White Blood Count 4.2 K/mm3 (4.5-10.0)
[2025-10-03 04:55] LABS: Partial Thromboplastin Time 96.9 Seconds (22.3-36.8)
[2025-10-03 05:06] LABS: Albumin Level 3.2 g/dL (3.5-5.1); Anion Gap 7 mmol/L (4-12); Blood Urea Nitrogen 23 mg/dL (9-20); Calcium 8.1 mg/dL (8.4-10.2); Carbon Dioxide 18 mmol/L (22-30); Chloride 112 mmol/L (98-107); Estimated CRCL calculation 45 ml/min; Estimated Glomerular Filt Rate 34; Glucose 120 mg/dL (65-110); Magnesium 2.0 mg/dL (1.6-2.3); Potassium 3.7 mmol/L (3.4-5.0); Sodium 137 mmol/L (137-145)
--- NOTE | 2025-10-03 08:41 | P.SEDATION_ITS ---
Moderate Sedation Note-Pt Data Patient Data Allergies Allergy/AdvReac Type Severity Reaction Status Date / Time tramadol AdvReac Hallucinati Verified 09/30/25 00:20 ng Home Medications ?Medication ?Instructions ?Recorded ?Confirmed ?Type gabapentin 300 mg capsule 400 mg PO QID PRN Muscle Michel n 04/27/20 09/30/25 History atorvastatin 80 mg tablet 40 mg PO QPM 03/23/23 History sertraline 100 mg tablet 200 mg PO HS 03/23/23 History aspirin 81 mg chewable tablet 1 tablet PO DAILY 09/30/25 History carvedilol 25 mg tablet 25 mg PO Q12H 03/28/2509/30 History ergocalciferol (vitamin D2) 1,250 1,250 mcg PO WEEKLY 03/28/25 09/30/25 History mcg (50,000 unit) capsule folic acid 1 mg tablet 1 mg PO DAILY 03/28/2509/30 History hydralazine 25 mg tablet 25 mg PO DAILY 03/28/2509/10 History losartan 50 mg tablet 50 mg PO DAILY 03/28/2509/10 History pantoprazole 40 mg tablet,delayed 40 mg PO Q12H 09/30/25 History release rivaroxaban 20 mg tablet (Xarelto) 20 mg PO QPM 09/30/25 History zolpidem 10 mg tablet 10 mg PO QHS 03/28/25 History ondansetron 4 mg disintegrating 4 mg translingual Q8H PRN nausea 05/14/25 09/30/25 History tablet and vomiting oxycodone 5 mg tablet 5 mg PO Q6H PRN pain #12 tab s 05/16/25 09/30/25 Rx empagliflozin 10 mg tablet 10 mg PO DAILY 09/30/25 History (Jardiance) metoprolol succinate 25 mg 25 mg PO DAILY 09/30/25 History tablet,extended release 24 hr Current Medications: Active Medications Acetaminophen (Acetaminophen 325 Mg Tablet) 650 mg PO Q4H PRN PRN Reason: Mild Pain (1-3) or Fever Last Admin: 09/30/25 00:48 Dose: 650 mg Albuterol/Ipratropium (Ipratropium 0.5 Mg/Albuterol Sulfate 2.5 Mg (Base) Ampul.Neb 3 Ml) 3 ml INHALATION Q6HRT PRN PRN Reason: Shortness Of Breath Or Wheezing Aspirin (Aspirin 81 Mg Chewable Tablet) 81 mg PO DAILY@0800 [facility] Last Admin: 10/02/25 08:52 Dose: 81 mg Atorvastatin Calcium (Atorvastatin 40 Mg Tablet) 40 mg PO QHS [facility] Last Admin: 10/02/25 21:08 Dose: 40 mg Carvedilol (Carvedilol 25 Mg Tablet) 25 mg PO Q12HR [facility] Last Admin: 10/02/25 20:55 Dose: 25 mg Dextrose (Dextrose 50% 25 Gm/50 Ml Syringe) 12.5 gm IV PUSH PRN PRN; Protocol PRN Reason: Hypoglycemia Doxycycline Hyclate (Doxycycline Hyclate 100 Mg Tablet) 100 mg PO Q12HR [facility] Stop: 10/03/25 09:01 Last Admin: 10/02/25 20:55 Dose: 100 mg Empagliflozin (Empagliflozin 10 Mg Tablet) 10 mg PO DAILY [facility] On Hold: 10/01/25 08:43 Last Admin: 09/30/25 09:38 Dose: 10 mg Folic Acid (Folic Acid 1 Mg Tablet) 1 mg PO DAILY [facility] Last Admin: 10/02/25 08:52 Dose: 1 mg Gabapentin (Gabapentin 400 Mg Capsule) 400 mg PO QID PRN PRN Reason: Muscle Pain Glucagon (Glucagon For Inj 1 Mg Vial) 1 mg IM PRN PRN; Protocol PRN Reason: Hypoglycemia Glucose (Glucose Oral Gel 15 Gm Of Glucse In 37.5 Gm Tube) 15 gm PO PRN PRN; Protocol PRN Reason: Hypoglycemia Heparin Sodium (Porcine) (Heparin Sodium 5,000 Units/Ml Vial) 4,000 units IV PUSH PRN PRN PRN Reason: aPTT less than 55 seconds Last Admin: 10/01/25 19:45 Dose: 4,000 units Heparin Sodium (Porcine) (Heparin Sodium 5,000 Units/Ml Vial) 3,500 units IV PUSH PRN PRN PRN Reason: aPTT 55 - 70 seconds Last Admin: 10/02/25 09:01 Dose: 3,500 units Hydralazine HCl (Hydralazine Hcl 25 Mg Tablet) 25 mg PO DAILY REYNA On Hold: 09/30/25 17:59 Last Admin: 09/30/25 09:40 Dose: 25 mg Ceftriaxone Sodium 1 gm/ (Sodium Chloride) 50 mls @ 100 mls/hr IVPB Q24H [facility] Last Admin: 10/02/25 20:54 Dose: 100 mls/hr Dextrose (Dextrose 5% 1,000 Ml) 1,000 mls @ 100 mls/hr IVPB PRN PRN; Protocol PRN Reason: Hypoglycemia Heparin Sodium/Dextrose (Heparin Sodium/D5w 100 Units/Ml) 25,000 units in 250 mls @ 13 mls/hr IV CONT .[id number] [facility]; Protocol Last Titration: 10/03/25 05:22 Dose: 1,300 units/hr, 13 mls/hr Sodium Chloride (Normal Saline Iv) 500 mls @ 75 mls/hr IV CONT .Q6H40M [facility] Last Admin: 10/03/25 03:41 Dose: 75 mls/hr Insulin Aspart (Insulin Aspart (*Bkc) 100 Units/Ml) 2 - 5 units SUB-Q TIDWM [facility]; Protocol Last Admin: 10/02/25 19:18 Dose: Not Given Losartan Potassium (Losartan Potassium 50 Mg Tablet) 50 mg PO DAILY [facility] On Hold: 10/01/25 08:43 Last Admin: 09/30/25 09:39 Dose: 50 mg Morphine Sulfate (Morphine Sulfate (*Crx) 4 Mg/Ml Inj) 1 mg IV PUSH Q4H PRN PRN Reason: Pain Rated 7-10 Last Admin: 10/02/25 16:30 Dose: 1 mg Multi-Ingred Cream/Lotion/Oil/Oint (Eucerin Cream 454 Gm Jar) 1 applic TOPICAL DAILY [facility] Last Admin: 10/02/25 08:53 Dose: 1 applic Oxycodone HCl (Oxycodone Hcl (*Crx) 5 Mg Tab Ir) 5 mg PO Q6H PRN PRN Reason: Pain 7-10 Last Admin: 10/02/25 19:54 Dose: 5 mg Pantoprazole Sodium (Pantoprazole 40 Mg Tablet) 40 mg PO Q12HR [facility] Last Admin: 10/02/25 20:56 Dose: 40 mg Rivaroxaban (Rivaroxaban 20 Mg Tablet) 20 mg PO DAILY@1700 [facility] On Hold: 09/30/25 17:00 Last Admin: 09/30/25 18:16 Dose: Not Given Sertraline HCl (Sertraline Hcl 50 Mg Tablet) 200 mg PO HS [facility] Last Admin: 10/02/25 20:56 Dose: 200 mg Tamsulosin HCl (Tamsulosin Hcl 0.4 Mg Capsule) 0.4 mg PO QAM [facility] Last Admin: 10/02/25 09:00 Dose: 0.4 mg Zolpidem Tartrate (Zolpidem Tartrate (*Crx) 5 Mg Tablet) 10 mg PO QHS PRN PRN Reason: Insomnia Last Admin: 10/02/25 21:08 Dose: 10 mg Sedation/Anesthesia: No previous sedation/anesthesia problems (including family history). 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 Psoriasis Eczema Hepatic steatosis Esophagitis with gastritis Chronic kidney disease, stage 3b With baseline creatinine ranging between 1.45 and 1.6 Diabetic nephropathy Hyperlipidemia Mitral regurgitation Diabetic neuropathy DM2 (diabetes mellitus, type 2) Now diet controlled due to 200 lb weight loss previously was insulin- dependent HTN (hypertension) with goal to be determined Kidney stones COPD (chronic obstructive pulmonary disease) Depression with anxiety History of COPD History of hypertension Surgical History Surgical History History of amputation of right great toe Partial amputation of right great toe 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 Patient had a metal mitral valve replacement place in 2022 and had 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 with secondary tissue valve replacement within 2 weeks of original procedure H/O tooth extraction History of lithotripsy (~2019) Right kidney History of cardiac catheterization 2013, no coronary artery disease with repeat heart catheterization 2022 with placement of 2 stents Family History Family History Mother Cerebrovascular accident Hypertension Depression Father Diabetes mellitus Heart disease Cancer before age 60 Acute myocardial infarction Grandparent Heart disease COPD (chronic obstructive pulmonary disease) Kidney disease Social History Social History (Updated 10/01/25 @ 21:30 by Ashly Salas APRN) Social History: The patient is and lives with his He has 3 children. 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 He used to smoke 2-3 packs of cigarettes per day but quit smoking in 2022 when he had his mitral valve replaced. He denies any alcohol. He uses marijuana. Code status: Full code Surrogate decision maker: Malia () Smoking packs per day: 2 Smoking cigarettes per day: 40.0 Years smoked: 30 Smoking pack-years: 60.00 Smoking status: Former smoker Tobacco type: cigarettes Second hand tobacco smoke exposure: No Alcohol intake: never Substance use: current Substance use type: marijuana Last use: 09/16/25 Do You Feel Safe in your Home?: Yes Lack of Transportation: No Lack of Food: Never True Current Housing: I Have Housing Concerned About Future Housing: No Difficulty Paying Gas/Electric Bills: No Difficulty Paying for Meds: No Currently Unemployed: No Education: High School Diploma/GED Difficulty w/ Childcare or Family Care: No Gender identity (if verbalized by the patient): Male Spiritual care concerns: No Mod Sed Physical Exam Physical Exam Pre Procedural Exam: Normal: Lungs, Heart Size, Heart Rate and Heart Rhythm Hours since solid foods: 12 Hours since liquid intake: 12 Mallampati Classification: class II Internal Medicine - PN: Obj Da Vital Signs Vital Signs: Vital Signs - 24 hr 10/02/25 09:04 10/02/25 10:00 10/02/25 11:33 Temperature 36.4 C Pulse Rate 55 L 56 L 56 L Respiratory Rate 18 Blood Pressure 148/75 H Pulse Oximetry 100 Oxygen Delivery 10/02/25 12:00 10/02/25 12:00 10/02/25 14:00 Temperature Pulse Rate 54 L 53 L Respiratory Rate Blood Pressure Pulse Oximetry Oxygen Delivery Room Air 10/02/25 15:32 10/02/25 16:00 10/02/25 16:00 Temperature 36.5 C Pulse Rate 54 L 54 L Respiratory Rate 16 Blood Pressure 111/51 L Pulse Oximetry 100 Oxygen Delivery Room Air 10/02/25 18:00 10/02/25 19:58 10/02/25 20:00 Temperature 36.3 C L Pulse Rate 54 L 52 L 55 L Respiratory Rate 14 Blood Pressure 115/62 Pulse Oximetry 100 Oxygen Delivery 10/02/25 20:55 10/02/25 22:00 10/02/25 23:52 Temperature 36.6 C Pulse Rate 53 L 52 L 52 L Respiratory Rate 18 Blood Pressure 102/41 L Pulse Oximetry 94 Oxygen Delivery 10/03/25 00:00 10/03/25 02:00 10/03/25 03:32 Temperature 36.4 C Pulse Rate 54 L 52 L 52 L Respiratory Rate 20 Blood Pressure 119/60 Pulse Oximetry 98 Oxygen Delivery 10/03/25 04:00 10/03/25 06:00 10/03/25 07:50 Temperature 36.5 C Pulse Rate 55 L 54 L 54 L Respiratory Rate 20 Blood Pressure 144/74 H Pulse Oximetry 99 Oxygen Delivery Intake/Output Intake/Output: Intake & Output 09/30/25 10/01/25 10/02/25 10/03/25 23:59 23:59 23:59 23:59 Intake Total 1044.2 2807.8 3154.3 585.6 Output Total 700 1500 1475 750 Balance 344.2 1307.8 1679.3 -164.4 Meds/Results Medications: Active Medications Generic Name Dose Route Start Last Admin Trade Name Freq PRN Reason Stop Dose Admin Acetaminophen 650 mg 09/29/25 22:33 09/30/25 00:48 Acetaminophen 325 Mg Tablet PO 650 mg Q4H PRN Administration Mild Pain (1-3) or Fever Albuterol/Ipratropium 3 ml 09/30/25 18:07 Ipratropium 0.5 Mg/Albuterol Sulfate 2.5 Mg (Base) Ampul.Neb 3 Ml INHALATION Q6HRT PRN Shortness Of Breath Or Wheezing Aspirin 81 mg 09/30/25 08:00 10/02/25 08:52 Aspirin 81 Mg Chewable Tablet PO 81 mg DAILY@0800 [facility] Administration Atorvastatin Calcium 40 mg 09/30/25 21:00 10/02/25 21:08 Atorvastatin 40 Mg Tablet PO 40 mg QHS [facility]NA Administration Carvedilol 25 mg 09/30/25 03:27 10/02/25 20:55 Carvedilol 25 Mg Tablet PO 25 mg Q12HR [facility] Administration Dextrose 12.5 gm 09/30/25 03:47 Dextrose 50% 25 Gm/50 Ml Syringe IV PUSH PRN PRN Hypoglycemia Protocol Doxycycline Hyclate 100 mg 10/01/25 21:00 10/02/25 20:55 Doxycycline Hyclate 100 Mg Tablet PO 10/03/25 09:01 100 mg Q12HR [facility] Administration Empagliflozin 10 mg 09/30/25 09:00 09/30/25 09:38 Empagliflozin 10 Mg Tablet PO 10 mg On Hold: 10/01/25 08:43 DAILY [facility] Administration Folic Acid 1 mg 09/30/25 09:00 10/02/25 08:52 Folic Acid 1 Mg Tablet PO 1 mg DAILY [facility] Administration Gabapentin 400 mg 09/30/25 02:29 Gabapentin 400 Mg Capsule PO QID PRN Muscle Pain Glucagon 1 mg 09/30/25 03:47 Glucagon For Inj 1 Mg Vial IM PRN PRN Hypoglycemia Protocol Glucose 15 gm 09/30/25 03:47 Glucose Oral Gel 15 Gm Of Glucse In 37.5 Gm Tube PO PRN PRN Hypoglycemia Protocol Heparin Sodium (Porcine) 4,000 units 10/01/25 11:43 10/01/25 19:45 Heparin Sodium 5,000 Units/Ml Vial IV PUSH 4,000 units PRN PRN Administration aPTT less than 55 seconds Heparin Sodium (Porcine) 3,500 units 10/01/25 11:43 10/02/25 09:01 Heparin Sodium 5,000 Units/Ml Vial IV PUSH 3,500 units PRN PRN Administration aPTT 55 - 70 seconds Hydralazine HCl 25 mg 09/30/25 09:00 09/30/25 09:40 Hydralazine Hcl 25 Mg Tablet PO 25 mg On Hold: 09/30/25 17:59 DAILY [facility]NA Administration Ceftriaxone Sodium 1 gm/ 50 mls @ 100 mls/hr 09/30/25 21:00 10/02/25 20:54 Sodium Chloride IVPB 100 mls/hr Q24H [facility] Administration Dextrose 1,000 mls @ 100 mls/hr 09/30/25 03:47 Dextrose 5% 1,000 Ml IVPB PRN PRN Hypoglycemia Protocol Heparin Sodium/Dextrose 25,000 units in 250 mls @ 13 mls/hr 10/01/25 11:45 10/03/25 05:22 Heparin Sodium/D5w 100 Units/Ml IV CONT 1,300 units/hr .[id number] RE[facility]NA 13 mls/hr Protocol Titration 1,300 UNITS/HR Sodium Chloride 500 mls @ 75 mls/hr 10/01/25 12:15 10/03/25 03:41 Normal Saline Iv IV CONT 75 mls/hr .Q6H40M [facility] Administration Insulin Aspart 2 - 5 units 09/30/25 08:00 10/02/25 19:18 Insulin Aspart (*Bkc) 100 Units/Ml SUB-Q Not Given TIDWM [facility] Protocol Losartan Potassium 50 mg 09/30/25 09:00 09/30/25 09:39 Losartan Potassium 50 Mg Tablet PO 50 mg On Hold: 10/01/25 08:43 DAILY [facility] Administration Morphine Sulfate 1 mg 09/30/25 18:07 10/02/25 16:30 Morphine Sulfate (*Crx) 4 Mg/Ml Inj IV PUSH 1 mg Q4H PRN Administration Pain Rated 7-10 Multi-Ingred Cream/Lotion/Oil/Oint 1 applic 10/02/25 09:00 10/02/25 08:53 Eucerin Cream 454 Gm Jar TOPICAL 1 applic DAILY [facility] Administration Oxycodone HCl 5 mg 09/30/25 02:29 10/02/25 19:54 Oxycodone Hcl (*Crx) 5 Mg Tab Ir PO 5 mg Q6H PRN Administration Pain 7-10 Pantoprazole Sodium 40 mg 09/30/25 09:00 10/02/25 20:56 Pantoprazole 40 Mg Tablet PO 40 mg Q12HR [facility] Administration Rivaroxaban 20 mg 09/30/25 02:30 09/30/25 18:16 Rivaroxaban 20 Mg Tablet PO Not Given On Hold: 09/30/25 17:00 DAILY@1700 [facility] Sertraline HCl 200 mg 09/30/25 21:00 10/02/25 20:56 Sertraline Hcl 50 Mg Tablet PO 200 mg HS [facility] Administration Tamsulosin HCl 0.4 mg 09/30/25 09:00 10/02/25 09:00 Tamsulosin Hcl 0.4 Mg Capsule PO 0.4 mg QAM [facility] Administration Zolpidem Tartrate 10 mg 09/30/25 15:29 10/02/25 21:08 Zolpidem Tartrate (*Crx) 5 Mg Tablet PO 10 mg QHS PRN Administration Insomnia Radiology Results: ITS Impressions Abdomen/Pelvis CT 09/29/25 21:17 IMPRESSION: 1. 10 mm calculus in the right kidney lower calyx. Mild prominence of right renal pelvis. Mild perinephric stranding around the kidney, suggesting possible pyelonephritis. 2. No evidence of hydroureter. No bladder calculus. Chest X-Ray 10/01/25 11:58 IMPRESSION: 1. Improving interstitial pulmonary edema. Labs 10/03/25 04:19 10/03/25 04:19 Labs: Laboratory Results - last 24 hr 10/02/25 10/02/25 10/02/25 02:15 11:26 15:06 WBC RBC Hgb Hct MCV MCH MCHC RDW Plt Count MPV APTT 82.5 H Sodium Potassium Chloride Carbon Dioxide Anion Gap BUN Creatinine Estim Creat Clear Calc Estimated GFR Glucose POC Capillary Glucose 116 H Calcium Phosphorus Magnesium Troponin I 1.860 H* Albumin 10/02/25 10/02/25 10/02/25 15:30 20:18 22:18 WBC RBC Hgb Hct MCV MCH MCHC RDW Plt Count MPV APTT 78.9 H Sodium Potassium Chloride Carbon Dioxide Anion Gap BUN Creatinine Estim Creat Clear Calc Estimated GFR Glucose POC Capillary Glucose 145 H 129 H Calcium Phosphorus Magnesium Troponin I Albumin 10/03/25 10/03/25 04:19 07:35 WBC 4.2 L RBC 2.91 L Hgb 8.0 L Hct 26.3 L MCV 90.4 MCH 27.5 MCHC 30.4 L RDW 16.4 H Plt Count 144 L MPV 11.2 H APTT 96.9 H Sodium 137 Potassium 3.7 Chloride 112 H Carbon Dioxide 18 L Anion Gap 7 BUN 23 H Creatinine 2.10 H Estim Creat Clear Calc 45 Estimated GFR 34 L Glucose 120 H POC Capillary Glucose 103 Calcium 8.1 L Phosphorus 4.4 Magnesium 2.0 Troponin I Albumin 3.2 L ASA Classification/Sedation ASA Classification/Sedation ASA Class: IV Emergent: No Risks: Risks, benefits and alternatives explained and patient/family accepted plan for sedation. Patient re-evaluated immediately prior to sedation.
--- NOTE | 2025-10-03 08:41 | WPDHPUPDATE1 ---
History and Physical Update Update Date/Time: 10/03/25 08:41 History and Physical has been reviewed, including an updated exam of the patient. There are NO changes in the patient's condition. Risks, benefits, and alternatives have been discussed and questions answered. Patient agrees to proceed with procedure.
--- NOTE | 2025-10-03 08:42 | P.PNCA_ITS ---
Progress Note: A&P Assessment and Plan (1) Elevated troponin: Code(s): R79.89 - Other specified abnormal findings of blood chemistry Status: Acute (2) Cardiomyopathy: Code(s): I42.9 - Cardiomyopathy, unspecified Status: Acute Plan Assessment: Elevated troponin without any chest pain- degree of troponin elevation is significant and concerning for underlying obstructive coronary artery disease; other differential includes type 2 NH due to ongoing sepsis versus stress cardiomyopathy New onset cardiomyopathy EF35%-stress cardiomyopathy versus CAD History of mitral valve replacement redo Dec 2023 (29 [address] II) Paroxysmal atrial flutter SARAH on CKD stage 3- creatinine decreased are 2.2-2.1 today, eGFR 34 today Hypertension-controlled Sepsis and pyelonephritis-management per primary team Hx fo DVT and PE on Xarelto Hx of osteomylitis toes Plan: Cardiac catheterization this a.m. Risks, benefits, and alternatives discussed with patient in detail and he is willing to proceed Continue to hold Xarelto for left heart catheterization Continue heparin drip Continue Aspirin, statin, Coreg Guideline directed medical therapy for new onset cardiomyopathy. Continue beta- loida, empagliflozin. Holding ANABELLA-inhibitor due to SARAH on CKD Check and replace electrolytes to keep potassium greater than 4 and magnesium greater than 2 Subjective Date/time seen: 10/03/25 08:42 Interval history: Reason for encounter: Elevated troponin, new cardiomyopathy with LVEF decreased to 35% (last echo in 09/2023 showed normal LVEF) Relevant history. 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 He was diagnosed with pneumonia, sepsis, UTI and is on IV antibiotic therapy. He was noted to have SARAH on CKD with creatinine up to 2.3 from baseline of 1.75. He was noted to have elevated troponins up to 14.4, [place] [address], and a new cardiomyopathy with LVEF of 35% for which Cardiology was consulted. Patient has no chest pain either prior to or after admission. Interval history: No chest pain, shortness breath, dizziness, lightheadedness. Telemetry shows sinus rhythm. EKG shows sinus bradycardia with prolonged QT interval and no new ST or T-wave changes Review of Systems Review of Systems: A complete review of systems was performed and pertinent positives are reported in HPI. Exam Narrative: General: Alert oriented x3, no acute distress Neck: Supple, no JVD Chest: Bilaterally clear to auscultation, no rales or rhonchi Cardiac: S1, S2 +, regular rate, regular rhythm, no murmurs or rubs Extremities: No pedal edema, no skin rash Neurologic: Alert and oriented x3, no focal neurological deficits Objective Data Vital Signs Vital Signs: Vital Signs - 24 hr 10/02/25 09:04 10/02/25 10:00 10/02/25 11:33 Temperature 36.4 C Pulse Rate 55 L 56 L 56 L Respiratory Rate 18 Blood Pressure 148/75 H Pulse Oximetry 100 Oxygen Delivery 10/02/25 12:00 10/02/25 12:00 10/02/25 14:00 Temperature Pulse Rate 54 L 53 L Respiratory Rate Blood Pressure Pulse Oximetry Oxygen Delivery Room Air 10/02/25 15:32 10/02/25 16:00 10/02/25 16:00 Temperature 36.5 C Pulse Rate 54 L 54 L Respiratory Rate 16 Blood Pressure 111/51 L Pulse Oximetry 100 Oxygen Delivery Room Air 10/02/25 18:00 10/02/25 19:58 10/02/25 20:00 Temperature 36.3 C L Pulse Rate 54 L 52 L 55 L Respiratory Rate 14 Blood Pressure 115/62 Pulse Oximetry 100 Oxygen Delivery 10/02/25 20:55 10/02/25 22:00 10/02/25 23:52 Temperature 36.6 C Pulse Rate 53 L 52 L 52 L Respiratory Rate 18 Blood Pressure 102/41 L Pulse Oximetry 94 Oxygen Delivery 10/03/25 00:00 10/03/25 02:00 10/03/25 03:32 Temperature 36.4 C Pulse Rate 54 L 52 L 52 L Respiratory Rate 20 Blood Pressure 119/60 Pulse Oximetry 98 Oxygen Delivery 10/03/25 04:00 10/03/25 06:00 10/03/25 07:50 Temperature 36.5 C Pulse Rate 55 L 54 L 54 L Respiratory Rate 20 Blood Pressure 144/74 H Pulse Oximetry 99 Oxygen Delivery Intake/Output Intake/Output: Intake & Output 09/30/25 10/01/25 10/02/25 10/03/25 23:59 23:59 23:59 23:59 Intake Total 1044.2 2807.8 3154.3 585.6 Output Total 700 1500 1475 750 Balance 344.2 1307.8 1679.3 -164.4 Meds/Results Medications: Active Medications Generic Name Dose Route Start Last Admin Trade Name Freq PRN Reason Stop Dose Admin Acetaminophen 650 mg 09/29/25 22:33 09/30/25 00:48 Acetaminophen 325 Mg Tablet PO 650 mg Q4H PRN Administration Mild Pain (1-3) or Fever Albuterol/Ipratropium 3 ml 09/30/25 18:07 Ipratropium 0.5 Mg/Albuterol Sulfate 2.5 Mg (Base) Ampul.Neb 3 Ml INHALATION Q6HRT PRN Shortness Of Breath Or Wheezing Aspirin 81 mg 09/30/25 08:00 10/02/25 08:52 Aspirin 81 Mg Chewable Tablet PO 81 mg DAILY@0800 REYNA Administration Atorvastatin Calcium 40 mg 09/30/25 21:00 10/02/25 21:08 Atorvastatin 40 Mg Tablet PO 40 mg QHS REYNA Administration Carvedilol 25 mg 09/30/25 03:27 10/02/25 20:55 Carvedilol 25 Mg Tablet PO 25 mg Q12HR REYNA Administration Dextrose 12.5 gm 09/30/25 03:47 Dextrose 50% 25 Gm/50 Ml Syringe IV PUSH PRN PRN Hypoglycemia Protocol Doxycycline Hyclate 100 mg 10/01/25 21:00 10/02/25 20:55 Doxycycline Hyclate 100 Mg Tablet PO 10/03/25 09:01 100 mg Q12HR REYNA Administration Empagliflozin 10 mg 09/30/25 09:00 09/30/25 09:38 Empagliflozin 10 Mg Tablet PO 10 mg On Hold: 10/01/25 08:43 DAILY REYNA Administration Folic Acid 1 mg 09/30/25 09:00 10/02/25 08:52 Folic Acid 1 Mg Tablet PO 1 mg DAILY REYNA Administration Gabapentin 400 mg 09/30/25 02:29 Gabapentin 400 Mg Capsule PO QID PRN Muscle Pain Glucagon 1 mg 09/30/25 03:47 Glucagon For Inj 1 Mg Vial IM PRN PRN Hypoglycemia Protocol Glucose 15 gm 09/30/25 03:47 Glucose Oral Gel 15 Gm Of Glucse In 37.5 Gm Tube PO PRN PRN Hypoglycemia Protocol Heparin Sodium (Porcine) 4,000 units 10/01/25 11:43 10/01/25 19:45 Heparin Sodium 5,000 Units/Ml Vial IV PUSH 4,000 units PRN PRN Administration aPTT less than 55 seconds Heparin Sodium (Porcine) 3,500 units 10/01/25 11:43 10/02/25 09:01 Heparin Sodium 5,000 Units/Ml Vial IV PUSH 3,500 units PRN PRN Administration aPTT 55 - 70 seconds Hydralazine HCl 25 mg 09/30/25 09:00 09/30/25 09:40 Hydralazine Hcl 25 Mg Tablet PO 25 mg On Hold: 09/30/25 17:59 DAILY REYNA Administration Ceftriaxone Sodium 1 gm/ 50 mls @ 100 mls/hr 09/30/25 21:00 10/02/25 20:54 Sodium Chloride IVPB 100 mls/hr Q24H REYNA Administration Dextrose 1,000 mls @ 100 mls/hr 09/30/25 03:47 Dextrose 5% 1,000 Ml IVPB PRN PRN Hypoglycemia Protocol Heparin Sodium/Dextrose 25,000 units in 250 mls @ 13 mls/hr 10/01/25 11:45 10/03/25 05:22 Heparin Sodium/D5w 100 Units/Ml IV CONT 1,300 units/hr .[id number] REYNA 13 mls/hr Protocol Titration 1,300 UNITS/HR Sodium Chloride 500 mls @ 75 mls/hr 10/01/25 12:15 10/03/25 03:41 Normal Saline Iv IV CONT 75 mls/hr .Q6H40M REYNA Administration Insulin Aspart 2 - 5 units 09/30/25 08:00 10/02/25 19:18 Insulin Aspart (*Bkc) 100 Units/Ml SUB-Q Not Given TIDWM REYNA Protocol Losartan Potassium 50 mg 09/30/25 09:00 09/30/25 09:39 Losartan Potassium 50 Mg Tablet PO 50 mg On Hold: 10/01/25 08:43 DAILY REYNA Administration Morphine Sulfate 1 mg 09/30/25 18:07 10/02/25 16:30 Morphine Sulfate (*Crx) 4 Mg/Ml Inj IV PUSH 1 mg Q4H PRN Administration Pain Rated 7-10 Multi-Ingred Cream/Lotion/Oil/Oint 1 applic 10/02/25 09:00 10/02/25 08:53 Eucerin Cream 454 Gm Jar TOPICAL 1 applic DAILY REYNA Administration Oxycodone HCl 5 mg 09/30/25 02:29 10/02/25 19:54 Oxycodone Hcl (*Crx) 5 Mg Tab Ir PO 5 mg Q6H PRN Administration Pain 7-10 Pantoprazole Sodium 40 mg 09/30/25 09:00 10/02/25 20:56 Pantoprazole 40 Mg Tablet PO 40 mg Q12HR REYNA Administration Rivaroxaban 20 mg 09/30/25 02:30 09/30/25 18:16 Rivaroxaban 20 Mg Tablet PO Not Given On Hold: 09/30/25 17:00 DAILY@1700 REYNA Sertraline HCl 200 mg 09/30/25 21:00 10/02/25 20:56 Sertraline Hcl 50 Mg Tablet PO 200 mg HS REYNA Administration Tamsulosin HCl 0.4 mg 09/30/25 09:00 10/02/25 09:00 Tamsulosin Hcl 0.4 Mg Capsule PO 0.4 mg QAM REYNA Administration Zolpidem Tartrate 10 mg 09/30/25 15:29 10/02/25 21:08 Zolpidem Tartrate (*Crx) 5 Mg Tablet PO 10 mg QHS PRN Administration Insomnia Radiology Results: ITS Impressions Abdomen/Pelvis CT 09/29/25 21:17 IMPRESSION: 1. 10 mm calculus in the right kidney lower calyx. Mild prominence of right renal pelvis. Mild perinephric stranding around the kidney, suggesting possible pyelonephritis. 2. No evidence of hydroureter. No bladder calculus. Chest X-Ray 10/01/25 11:58 IMPRESSION: 1. Improving interstitial pulmonary edema. Labs Labs: Laboratory Results - last 24 hr 10/02/25 10/02/25 10/02/25 02:15 11: 15:06 WBC RBC Hgb Hct MCV MCH MCHC RDW Plt Count MPV APTT 82.5 H Sodium Potassium Chloride Carbon Dioxide Anion Gap BUN Creatinine Estim Creat Clear Calc Estimated GFR Glucose POC Capillary Glucose 116 H Calcium Phosphorus Magnesium Troponin I 1.860 H* Albumin 10/02/25 10/02/2525 15:30 20:18 22:18 WBC RBC Hgb Hct MCV MCH MCHC RDW Plt Count MPV APTT 78.9 H Sodium Potassium Chloride Carbon Dioxide Anion Gap BUN Creatinine Estim Creat Clear Calc Estimated GFR Glucose POC Capillary Glucose 145 H 129 H Calcium Phosphorus Magnesium Troponin I Albumin 10/03/25 10/03/25 04:19 07:35 WBC 4.2 L RBC 2.91 L Hgb 8.0 L Hct 26.3 L MCV 90.4 MCH 27.5 MCHC 30.4 L RDW 16.4 H Plt Count 144 L MPV 11.2 H APTT 96.9 H Sodium 137 Potassium 3.7 Chloride 112 H Carbon Dioxide 18 L Anion Gap 7 BUN 23 H Creatinine 2.10 H Estim Creat Clear Calc 45 Estimated GFR 34 L Glucose 120 H POC Capillary Glucose 103 Calcium 8.1 L Phosphorus 4.4 Magnesium 2.0 Troponin I Albumin 3.2 L
[2025-10-03] MEDS: oxyCODONE HCL (*CRX) 5 MG TAB IR PO ×3 (08:51→20:58)
[2025-10-03] MEDS: TAMSULOSIN HCL 0.4 MG CAPSULE PO (09:50)
[2025-10-03] MEDS: PANTOPRAZOLE 40 MG TABLET PO ×2 (09:50→20:58)
[2025-10-03] MEDS: ASPIRIN 81 MG CHEWABLE TABLET PO (09:50)
[2025-10-03] MEDS: FOLIC ACID 1 MG TABLET PO (09:50)
[2025-10-03] MEDS: DOXYCYCLINE HYCLATE 100 MG TABLET PO (09:51)
[2025-10-03] MEDS: ACETAMINOPHEN 325 MG TABLET 650 MG PO ×2 (09:52→17:43)
--- NOTE | 2025-10-03 12:16 | WPDCARDPROC ---
Cardiac Cath Procedure Note Date of procedure:: 10/03/25 Performing physician:: Marlene Vallecillo MD Indication:: CATHETERIZATION LABORATORY REPORT Procedure Date: 10/03/2025 Anesthesia: Versed and Fentanyl were ordered and given in my presence at 10:59 a.m., procedure ended at 11:58 a.m.. Supervision of nurse monitored moderate sedation with Versed and Fentanyl was provided for 59 minutes. Pre-op Diagnosis: NSTEMI Post-op Diagnosis: NSTEMI status post IVUS guided PCI to 80% stenosis of proximal RCA with 4.0 mm X 28 mm Xience Skypoint ROSA post dilated with 4.5 mm X 15 mm non compliant balloon to high pressures. PCI performed with 50 cc contrast. Obstructive CAD-70% stenosis in proximal RPDA, 70% and 90% serial stenosis in the small RPLA. Nonobstructive CAD with 40% stenosis in mid LCX. Bifurcation PCI to RPDA and RPLA was not done today given patient has SARAH with EGFR of 34. Recommend staged PCI to RPDA and RPLA once patient's creatinine is back to baseline. Procedure(s): Ultrasound-guided right femoral artery access Left heart catheterization with coronary angiography PCI to 80% stenosis of proximal RCA with 4.0 mm X 28 mm Xience Skypoint ROSA post dilated with 4.5 mm X 15 mm non compliant balloon to high pressures Access Site: Ultrasound guided right femoral artery access Brief History and Clinical Indications: All risks, benefits and alternatives to left heart catheterization with or without percutaneous coronary intervention was discussed at length with the patient. Risk of complications including but not limited to bleeding, infection, arrhythmia, stroke, worsening kidney function, blood loss, groin hematoma, limb loss, emergency coronary artery bypass grafting, and even were discussed with the patient and all questions were answered. The patient understood and wished to proceed. Time out called, patient name, date of , medical record number, allergies, procedure performed, identify [employer], patient and staff member concurred with accurate data, procedure carried on. Findings: LEFT HEART CATHETERIZATION FINDINGS: 1. Left main: The left main coronary artery is widely patent without any significant obstructive disease. 2. Left anterior descending: The LAD and the diagonal branches have mild luminal irregularities without any significant obstructive angiographic disease. 3. Left circumflex: The mid left circumflex artery has 40% stenosis and the main marginal branches have mild luminal irregularities without any significant obstructive angiographic disease. 4. Right coronary artery: The proximal RCA has 30% and 90% serial stenosis there is 70% stenosis in the proximal RPDA. There are 70% and 90% serial stenosis in small RPLA. The RCA is the dominant vessel. 5. Left ventricle: A. End-diastolic pressure 30 mmHg. B. LV gram deferred. C. No significant gradient across aortic valve on catheter pullback. 6. Opening AO pressure 147/79/107 and closing AO pressure 138/72/99 mm Hg Description of Procedure: Informed consent signed and placed in the chart. 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 Prepped and draped in usual sterile fashion. 2% lidocaine in right groin area. Micropuncture needle used to access right common femoral artery with Seldinger technique under fluoroscopic guidance. J wire advanced, micropuncture cannula placed. Right iliofemoral angiogram performed, access confirmed and micropuncture cannula exchanged for 6-FR sheath. ? Five [place] JL 4 diagnostic catheter engaged Left Main Coronary Artery. 5 [place] JR4 diagnostic catheter engaged Right Coronary Artery. Multiple orthogonal angiogram obtained and reviewed 5 [place] JR4 diagnostic catheter crossed aortic valve to obtain LVEDP, LV angiogram deferred. Procedure Description for PCI: Heparin was used for anticoagulation (ACT maintained above 250) Patient loaded with heparin at 70 units/kg. 6 [place] JR4 guide catheter was used to intubate the RCA 0.014 run-through coronary wire was passed in to the distal RCA The 80% stenotic lesion in the proximal RCA was pre-dilated with a 2.0 mm X 20 mm and 3.0 mm x 20 mm compliant balloon inflated to high LADAN A 4.0 mm x 28 mm with signs Skypoint ROSA was successfully deployed into the proximal RCA The stent was post-dilated with a 4.5 mm X 15 mm NC balloon inflated to high LADAN Intracoronary NTG was administered Follow-up angiograms showed an excellent result Coronary wire and guide-catheter were removed Pre-procedure - VLADISLAV 3 flow Post-procedure - VLADISLAV 3 flow No angiographic complications identified. Hemostasis: 6 [place] Angio-Seal Assessment: NSTEMI status post IVUS guided PCI to 80% stenosis of proximal RCA with 4.0 mm X 28 mm Xience Skypoint ROSA post dilated with 4.5 mm X 15 mm non compliant balloon to high pressures with 50 cc contrast. Obstructive CAD-70% stenosis in proximal RPDA, 70% and 90% serial stenosis in the small RPLA. Nonobstructive CAD with 40% stenosis in mid LCX. Bifurcation PCI to RPDA and RPLA was not done today given patient has SARAH with EGFR of 34. Recommend staged PCI to RPDA and RPLA once patient's creatinine is back to baseline. SARAH on top of CKD with GFR 34 Post Operative Condition: Stable No significant blood loss Disposition: Floor Plan: Recommend staged bifurcation PCI to proximal RPDA and possibly proximal RPLA in 2-4 weeks if renal function continues to improve. The patient will be monitored in the recovery area. Patient is on Xarelto for history of DVT, PE. Resume Xarelto tonight. Load with Plavix 600 mg once tomorrow (10/04/2025) morning. Start Plavix 75 mg daily on 10/05/2025. IV fluids normal saline 100 mL/hour for 250 mL. Bedrest for 2 hours. Continue aggressive medical therapy and risk factor modification. Follow-up with cardiology in 1-2 weeks after discharge. Marlene Vallecillo MD, MS, FACC, [facility] Interventional Cardiology
[2025-10-03] MEDS: SODIUM CHLORIDE 0.9% IV 250 ML 125 ML IV CONT (12:53)
[2025-10-03] MEDS: MORPHINE SULFATE (*CRX) 4 MG/ML INJ 1 MG IV PUSH ×3 (13:55→22:40)
--- NOTE | 2025-10-03 14:50 | P.PNIM_ITS ---
Progress Note: A&P Assessment and Plan (1) Non-ST elevation PA (NSTEMI): Code(s): I21.4 - Non-ST elevation (NSTEMI) myocardial infarction Status: Acute Assessment and Plan: Patient presents to the ED by ambulance from home complaining of nausea, vomiting, SOB and right flank pain. Troponin peaked at 14.4. EKG showing sinus tachycardia (101), possible LAE and nonspecific ST-T wave changes. Repeat EKG showing similar findings. Echo showing EF 30-35% with all segments hypokinetic except basal segments (consider stress induced vs multivessel disease), LV enlarged, diastolic dysfunction, normal appearing bioprosthetic valve, mod pulm HTN. Patient is already on aspirin, beta-loida, atorvastatin on admission Cardiology consulted. Patient underwent LHC (10/03) showing 80% stenosis of prox RCA s/p PCI and ROSA placement. Planned for staged approach to a 70% stenosis of the RPDA and a 70- 90% stenosis to a small RPLA Continue with atorvastatin and carvedilol. Xarelto resumed and Plavix added. (2) Pyelonephritis: Code(s): N12 - Tubulo-interstitial nephritis, not specified as acute or chronic Status: Acute Assessment and Plan: CT imaging showing mild perinephri stranding around right kidney. UA showing 3+ protein, tr glucose, 2+ bld, Neg LE/N, 11-20 RBC and no WBC. WBC 13.6K -> normal. The patient is having right sided back tenderness present on admission but suspect musculoskeletal BCx negative for 2 days. Rocephin started. 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 Encourage use of the heating pad Cx negative so will stop abx. Follow clinically. (3) Chronic kidney disease, stage 3b: Code(s): N18.32 - Chronic kidney disease, stage 3b Status: Acute Assessment and Plan: Patient with normal renal function in 2022. Creatinine earlier this year runs 1.4-1.7 range. Creatinine 1.7 on admission. 3+ protein noted with Prot/Cr 3.7gm Cr was up to 2.3 but slightly better today Avoid nephrotoxic medication. Add oral bicarb Monitor urine output, renal function and electrolytes. (4) Community acquired pneumonia: Code(s): J18.9 - Pneumonia, unspecified organism Status: Acute Assessment and Plan: CXR showing mild CMG and post-op changes with patchy airspace opacities bilateral (R>L) lung bases. Presumed PNA so started on Zithromax and Rocephin. QTC is 478 so Azithro changed to Doxy. CT Abd showing basilar ground glass opacities due to pulmonary edema c/w CHF MRSA nasal swab negative. Cultures obtained. Suspect CHF related to low EF and and less likely PNA. Rocephin stopped. (5) CHF (congestive heart failure): Code(s): I50.9 - Heart failure, unspecified Status: Acute Assessment and Plan: As above. BNP 23K. Suspect acute systolic and diastolic CHF. Repeat CXR showing improved interstitial pulmonary edema. Not currently on diuretics. 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 The patient's blood glucose was reviewed on 10/03 Home meds: Empagliflozin Glucose remains well controlled. Continue AccuCheks covering with sliding scale. Hypoglycemia protocol available as needed. 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 Lungs clear. Remains on room air. Continue with DuoNeb PRN (10) Depression with anxiety: Code(s): F41.8 - Other specified anxiety disorders Status: Chronic Assessment and Plan: Mood stable. Zoloft continued. Ambien available p.r.n.. Plan DVT prophylaxis - Zoloft Code status -full Subjective Date/time seen: 10/03/25 14:50 Interval history: 44yo male with DM, HLD, CKD, pAFib and VTE on Xarelto here for complaints of nausea, vomiting and trouble breathing. He has a hx of mitral valve disease s/p mechanical valve in Nov 2023 that became infected requiring explant and replace ment with bioprosthetic valve in Dec 2023. He did not require bypass. Complains of increased right sided back pain. No dysuria or hematuria. Exam Narrative: AF 97.6 172/76 58 20 100% ra Gen - NARD Chest - CTA bilaterally, nml RR CV - RRR S1/S2. Tele showing no significant dysrhythmias Abd - Soft, NT/ND, Positive BS Back - tender right para-spinal muscles Ext - No pedal edema. Psych - Nml mood and affect Skin - Warm and dry. Objective Data Vital Signs Vital Signs: Vital Signs - 24 hr 10/02/25 15:32 10/02/25 16:00 10/02/25 16:00 Temperature 97.7 F Pulse Rate 54 L 54 L Pulse Rate [Bilateral Pedal (Dorsalis Pedis) Palpation] Respiratory Rate 16 Blood Pressure 111/51 L Pulse Oximetry 100 Oxygen Delivery Room Air 10/02/25 18:00 10/02/25 19:58 10/02/25 20:00 Temperature 97.4 F L Pulse Rate 54 L 52 L 55 L Pulse Rate [Bilateral Pedal (Dorsalis Pedis) Palpation] Respiratory Rate 14 Blood Pressure 115/62 Pulse Oximetry 100 Oxygen Delivery 10/02/25 20:55 10/02/25 22:00 10/02/25 23:52 Temperature 97.9 F Pulse Rate 53 L 52 L 52 L Pulse Rate [Bilateral Pedal (Dorsalis Pedis) Palpation] Respiratory Rate 18 Blood Pressure 102/41 L Pulse Oximetry 94 Oxygen Delivery 10/03/25 00:00 10/03/25 02:00 10/03/25 03:32 Temperature 97.6 F Pulse Rate 54 L 52 L 52 L Pulse Rate [Bilateral Pedal (Dorsalis Pedis) Palpation] Respiratory Rate 20 Blood Pressure 119/60 Pulse Oximetry 98 Oxygen Delivery 10/03/25 04:00 10/03/25 06:00 10/03/25 07:50 Temperature 97.7 F Pulse Rate 55 L 54 L 54 L Pulse Rate [Bilateral Pedal (Dorsalis Pedis) Palpation] Respiratory Rate 20 Blood Pressure 144/74 H Pulse Oximetry 99 Oxygen Delivery 10/03/25 08:00 10/03/25 09:50 10/03/25 10:00 Temperature Pulse Rate 55 L 56 L 54 L Pulse Rate [Bilateral Pedal (Dorsalis Pedis) Palpation] Respiratory Rate Blood Pressure Pulse Oximetry Oxygen Delivery 10/03/25 12:10 10/03/25 12:10 10/03/25 12:20 Temperature Pulse Rate 61 Pulse Rate [Bilateral Pedal (Dorsalis Pedis) Palpation] 61 61 Respiratory Rate 16 Blood Pressure 153/79 H Pulse Oximetry 99 Oxygen Delivery Room Air 10/03/25 12:20 10/03/25 12:30 10/03/25 12:30 Temperature Pulse Rate 61 59 L Pulse Rate [Bilateral Pedal (Dorsalis Pedis) Palpation] 59 L Respiratory Rate 16 15 Blood Pressure 151/82 H 151/83 H Pulse Oximetry 98 98 Oxygen Delivery Room Air Room Air 10/03/25 12:45 10/03/25 12:45 10/03/25 13:00 Temperature Pulse Rate 58 L Pulse Rate [Bilateral Pedal (Dorsalis Pedis) Palpation] 58 L 56 L Respiratory Rate 14 Blood Pressure 163/87 H Pulse Oximetry 100 Oxygen Delivery Room Air 10/03/25 13:00 10/03/25 13:30 10/03/25 13:30 Temperature 97.5 F L Pulse Rate 56 L 56 L Pulse Rate [Bilateral Pedal (Dorsalis Pedis) Palpation] 56 L Respiratory Rate 12 12 Blood Pressure 154/85 H 148/79 H Pulse Oximetry 99 100 Oxygen Delivery Room Air 10/03/25 13:39 10/03/25 13:45 10/03/25 13:59 Temperature Pulse Rate 58 L Pulse Rate [Bilateral Pedal (Dorsalis Pedis) Palpation] 58 L Respiratory Rate Blood Pressure Pulse Oximetry Oxygen Delivery Room Air 10/03/25 14:03 Temperature 97.6 F Pulse Rate 58 L Pulse Rate [Bilateral Pedal (Dorsalis Pedis) Palpation] Respiratory Rate 20 Blood Pressure 172/76 H Pulse Oximetry 100 Oxygen Delivery Intake/Output Intake/Output: Intake & Output 09/30/25 10/01/25 10/02/25 10/03/25 23:59 23:59 23:59 23:59 Intake Total 1044.2 2807.8 3154.3 585.6 Output Total 700 1500 1475 1550 Balance 344.2 1307.8 1679.3 -964.4 Meds/Results Medications: Active Medications Generic Name Dose Route Start Last Admin Trade Name Freq PRN Reason Stop Dose Admin Acetaminophen 650 mg 09/29/25 22:33 10/03/25 09:52 Acetaminophen 325 Mg Tablet PO 650 mg Q4H PRN Administration Mild Pain (1-3) or Fever Albuterol/Ipratropium 3 ml 09/30/25 18:07 Ipratropium 0.5 Mg/Albuterol Sulfate 2.5 Mg (Base) Ampul.Neb 3 Ml INHALATION Q6HRT PRN Shortness Of Breath Or Wheezing Aspirin 81 mg 09/30/25 08:00 10/03/25 09:50 Aspirin 81 Mg Chewable Tablet PO 81 mg DAILY@0800 REYNA Administration Atorvastatin Calcium 40 mg 09/30/25 21:00 10/02/25 21:08 Atorvastatin 40 Mg Tablet PO 40 mg QHS REYNA Administration Carvedilol 25 mg 09/30/25 03:27 10/03/25 09:50 Carvedilol 25 Mg Tablet PO 25 mg Q12HR REYNA Administration Clopidogrel Bisulfate 75 mg 10/05/25 09:00 Clopidogrel Bisulfate 75 Mg Tablet PO QAM [facility] Clopidogrel Bisulfate 600 mg 10/04/25 09:00 Clopidogrel Bisulfate 300 Mg Tablet PO 10/04/25 09:01 ONCE ONE Dextrose 12.5 gm 09/30/25 03:47 Dextrose 50% 25 Gm/50 Ml Syringe IV PUSH PRN PRN Hypoglycemia Protocol Empagliflozin 10 mg 09/30/25 09:00 09/30/25 09:38 Empagliflozin 10 Mg Tablet PO 10 mg DAILY REYNA Administration Folic Acid 1 mg 09/30/25 09:00 10/03/25 09:50 Folic Acid 1 Mg Tablet PO 1 mg DAILY REYNA Administration Gabapentin 400 mg 09/30/25 02:29 Gabapentin 400 Mg Capsule PO QID PRN Muscle Pain Glucagon 1 mg 09/30/25 03:47 Glucagon For Inj 1 Mg Vial IM PRN PRN Hypoglycemia Protocol Glucose 15 gm 09/30/25 03:47 Glucose Oral Gel 15 Gm Of Glucse In 37.5 Gm Tube PO PRN PRN Hypoglycemia Protocol Hydralazine HCl 25 mg 09/30/25 09:00 09/30/25 09:40 Hydralazine Hcl 25 Mg Tablet PO 25 mg DAILY REYNA Administration Ceftriaxone Sodium 1 gm/ 50 mls @ 100 mls/hr 09/30/25 21:00 10/02/25 20:54 Sodium Chloride IVPB 100 mls/hr Q24H REYNA Administration Dextrose 1,000 mls @ 100 mls/hr 09/30/25 03:47 Dextrose 5% 1,000 Ml IVPB PRN PRN Hypoglycemia Protocol Insulin Aspart 2 - 5 units 09/30/25 08:00 10/03/25 13:44 Insulin Aspart (*Bkc) 100 Units/Ml SUB-Q Not Given TIDWM [facility] Protocol Losartan Potassium 50 mg 09/30/25 09:00 09/30/25 09:39 Losartan Potassium 50 Mg Tablet PO 50 mg DAILY REYNA Administration Morphine Sulfate 1 mg 09/30/25 18:07 10/03/25 13:55 Morphine Sulfate (*Crx) 4 Mg/Ml Inj IV PUSH 1 mg Q4H PRN Administration Pain Rated 7-10 Multi-Ingred Cream/Lotion/Oil/Oint 1 applic 10/02/25 09:00 10/03/25 13:44 Eucerin Cream 454 Gm Jar TOPICAL Not Given DAILY [facility] Oxycodone HCl 5 mg 09/30/25 02:29 10/03/25 09:51 Oxycodone Hcl (*Crx) 5 Mg Tab Ir PO 5 mg Q6H PRN Administration Pain 7-10 Pantoprazole Sodium 40 mg 09/30/25 09:00 10/03/25 09:50 Pantoprazole 40 Mg Tablet PO 40 mg Q12HR REYNA Administration Rivaroxaban 20 mg 09/30/25 02:30 09/30/25 18:16 Rivaroxaban 20 Mg Tablet PO Not Given DAILY@1700 REYNA Sertraline HCl 200 mg 09/30/25 21:00 10/02/25 20:56 Sertraline Hcl 50 Mg Tablet PO 200 mg HS REYNA Administration Tamsulosin HCl 0.4 mg 09/30/25 09:00 10/03/25 09:50 Tamsulosin Hcl 0.4 Mg Capsule PO 0.4 mg QAM REYNA Administration Zolpidem Tartrate 10 mg 09/30/25 15:29 10/02/25 21:08 Zolpidem Tartrate (*Crx) 5 Mg Tablet PO 10 mg QHS PRN Administration Insomnia Radiology Results: ITS Impressions Abdomen/Pelvis CT 09/29/25 21:17 IMPRESSION: 1. 10 mm calculus in the right kidney lower calyx. Mild prominence of right renal pelvis. Mild perinephric stranding around the kidney, suggesting possible pyelonephritis. 2. No evidence of hydroureter. No bladder calculus. Chest X-Ray 10/01/25 11:58 IMPRESSION: 1. Improving interstitial pulmonary edema. Labs Labs: Laboratory Results - last 24 hr 10/02/25 10/02/25 10/02/25 15:06 15:30 20:18 WBC RBC Hgb Hct MCV MCH MCHC RDW Plt Count MPV APTT 82.5 H Sodium Potassium Chloride Carbon Dioxide Anion Gap BUN Creatinine Estim Creat Clear Calc Estimated GFR Glucose POC Capillary Glucose 145 H 129 H Calcium Phosphorus Magnesium Albumin 10/02/25 10/03/25 10/03/25 22:18 04:19 07:35 WBC 4.2 L RBC 2.91 L Hgb 8.0 L Hct 26.3 L MCV 90.4 MCH 27.5 MCHC 30.4 L RDW 16.4 H Plt Count 144 L MPV 11.2 H APTT 78.9 H 96.9 H Sodium 137 Potassium 3.7 Chloride 112 H Carbon Dioxide 18 L Anion Gap 7 BUN 23 H Creatinine 2.10 H Estim Creat Clear Calc 45 Estimated GFR 34 L Glucose 120 H POC Capillary Glucose 103 Calcium 8.1 L Phosphorus 4.4 Magnesium 2.0 Albumin 3.2 L
[2025-10-03] MEDS: RIVAROXABAN 20 MG TABLET PO (17:43)
[2025-10-03] MEDS: SERTRALINE HCL 50 MG TABLET 200 MG PO (20:57)
[2025-10-03] MEDS: ZOLPIDEM TARTRATE (*CRX) 5 MG TABLET 10 MG PO (20:58)
[2025-10-03] MEDS: ATORVASTATIN 40 MG TABLET PO (20:58)
[2025-10-03] MEDS: SODIUM BICARBONATE TAB 325 MG TABLET PO (20:58)
[2025-10-04] VITALS (9 sets, daily range): BP systolic 125–144; BP diastolic 67–72; PULSE 52–66; RESP 15–18; TEMP 36.6–36.8; O2SAT 99–100
[2025-10-04 04:03] LABS: Hematocrit 26.7 % (42.0-52.0); Hemoglobin 8.6 g/dL (14.0-18.0); Immature Granulocyte Percent A 0.4 % (0-0.5); Lymphocytes Absolute Auto 1.54 K/mm3 (0.9-3.2); Mean Corpuscular HGB Conc 32.2 g/dl (32-36); Mean Corpuscular Hemoglobin 27.9 pg (26-34); Mean Corpuscular Volume 86.7 fl (80-100); Nucleated Red Blood Cells Absolute Auto 0.000 K/mm3 (0.0-0.012); Nucleated Red Blood Cells Perc 0.0 % (0.0-0.2); Platelet Count Result 178 k/mm3 (150-375); Red Blood Count 3.08 M/mm3 (4.6-6.20); White Blood Count 4.7 K/mm3 (4.5-10.0)
[2025-10-04 04:25] LABS: Albumin Level 3.3 g/dL (3.5-5.1); Anion Gap 7 mmol/L (4-12); Blood Urea Nitrogen 20 mg/dL (9-20); Calcium 8.3 mg/dL (8.4-10.2); Carbon Dioxide 18 mmol/L (22-30); Chloride 113 mmol/L (98-107); Estimated CRCL calculation 57 ml/min; Estimated Glomerular Filt Rate 40; Glucose 111 mg/dL (65-110); Magnesium 1.8 mg/dL (1.6-2.3); Potassium 3.4 mmol/L (3.4-5.0); Sodium 138 mmol/L (137-145)
[2025-10-04] MEDS: FOLIC ACID 1 MG TABLET PO (09:48)
[2025-10-04] MEDS: ASPIRIN 81 MG CHEWABLE TABLET PO (09:48)
[2025-10-04] MEDS: EMPAGLIFLOZIN 10 MG TABLET PO (09:48)
[2025-10-04] MEDS: SODIUM BICARBONATE TAB 325 MG TABLET PO (09:49)
[2025-10-04] MEDS: oxyCODONE HCL (*CRX) 5 MG TAB IR PO (09:49)
[2025-10-04] MEDS: TAMSULOSIN HCL 0.4 MG CAPSULE PO (09:49)
[2025-10-04] MEDS: PANTOPRAZOLE 40 MG TABLET PO (09:50)
[2025-10-04] MEDS: LOSARTAN POTASSIUM 50 MG TABLET PO (09:50)
[2025-10-04] MEDS: EUCERIN CREAM 454 GM JAR 1 APPLIC TOPICAL (09:51)
--- NOTE | 2025-10-04 10:07 | P.PNCA_ITS ---
Progress Note: A&P Assessment and Plan (1) Elevated troponin: Code(s): R79.89 - Other specified abnormal findings of blood chemistry Status: Acute (2) Cardiomyopathy: Code(s): I42.9 - Cardiomyopathy, unspecified Status: Acute Plan Assessment: -NSTEMI status post IVUS guided PCI to 80% stenosis of proximal RCA with 4.0 mm X 28 mm Xience Skypoint ROSA post dilated with 4.5 mm X 15 mm non compliant balloon to high pressures. PCI performed with 50 cc contrast. -Obstructive CAD-70% stenosis in proximal RPDA, 70% and 90% serial stenosis in the small RPLA. Nonobstructive CAD with 40% stenosis in mid LCX. Bifurcation PCI to RPDA and RPLA was not done given SARAH with EGFR of 34 -Ischemic cardiomyopathy with EF 35% -History of mitral valve replacement redo Dec 2023 (29 [address] II) -Paroxysmal atrial flutter -SARAH on CKD stage 3- creatinine 0.1 -Hypertension-controlled -Sepsis and pyelonephritis-management per primary team -Hx fo DVT and PE on Xarelto -Hx of osteomylitis toes Plan: Continue Xarelto- was resumed post PCI Ticagrelor 180mg load given post PCI but given he is also on Xarelto, will switch to Plavix. Plavix 600 mg load this morning followed by 75 mg daily Stop aspirin after 1 week post PCI (stop date: 10/11/2025) Continue statin, Coreg Guideline directed medical therapy for new onset cardiomyopathy. Continue beta-loida, empagliflozin. Holding ANABELLA-inhibitor due to SARAH on CKD-resume when renal function back to baseline Check and replace electrolytes to keep potassium greater than 4 and magnesium greater than 2 Follow up with cardiology in 1-2 weeks post discharge Subjective Date/time seen: 10/04/25 10:07 Interval history: Reason for encounter: Elevated troponin, new cardiomyopathy with LVEF decreased to 35% (last echo in 09/2023 showed normal LVEF) Relevant history. 44-year-old male with history of diabetes mellitus, hyperlipidemia, history of DVT and PE on oral anticoagulation with Xarelto, CKD stage 3, coronary artery disease with a history of 2 stents, mitral valve replac ement X 2 in 2023 (initially had surgical mitral valve replacement with a mechanical mitral valve prosthesis followed 3 weeks later by redo surgical MVR with bioprosthetic valve as mechanical valve was infected) was admitted with chief complaints of nausea, vomiting, shortness of breath. He was diagnosed with pneumonia, sepsis, UTI and is on IV antibiotic therapy. He was noted to have SARAH on CKD with creatinine up to 2.3 from baseline of 1.75. He was noted to have elevated troponins up to 14.4, [place] [address], and a new cardiomyopathy with LVEF of 35% for which Cardiology was consulted. Patient has no chest pain either prior to or after admission. Interval history: No chest pain, shortness breath, dizziness, lightheadedness. Telemetry shows sinus rhythm. EKG shows sinus bradycardia with prolonged QT interval and no new ST or T-wave changes Review of Systems Review of Systems: A complete review of systems was performed and pertinent positives are reported in HPI. Exam Narrative: General: Alert oriented x3, no acute distress Neck: Supple, no JVD Chest: Bilaterally clear to auscultation, no rales or rhonchi Cardiac: S1, S2 +, regular rate, regular rhythm, no murmurs or rubs Extremities: No pedal edema, no skin rash Neurologic: Alert and oriented x3, no focal neurological deficits Objective Data Vital Signs Vital Signs: Vital Signs - 24 hr 10/03/25 12:10 10/03/25 12:10 10/03/25 12:20 Temperature Pulse Rate 61 Pulse Rate [Bilateral Pedal (Dorsalis Pedis) Palpation] 61 61 Respiratory Rate 16 Blood Pressure 153/79 H Pulse Oximetry 99 Oxygen Delivery Room Air 10/03/25 12:20 10/03/25 12:30 10/03/25 12:30 Temperature Pulse Rate 61 59 L Pulse Rate [Bilateral Pedal (Dorsalis Pedis) Palpation] 59 L Respiratory Rate 16 15 Blood Pressure 151/82 H 151/83 H Pulse Oximetry 98 98 Oxygen Delivery Room Air Room Air 10/03/25 12:45 10/03/25 12:45 10/03/25 13:00 Temperature Pulse Rate 58 L Pulse Rate [Bilateral Pedal (Dorsalis Pedis) Palpation] 58 L 56 L Respiratory Rate 14 Blood Pressure 163/87 H Pulse Oximetry 100 Oxygen Delivery Room Air 10/03/25 13:00 10/03/25 13:30 10/03/25 13:30 Temperature 36.4 C L Pulse Rate 56 L 56 L Pulse Rate [Bilateral Pedal (Dorsalis Pedis) Palpation] 56 L Respiratory Rate 12 12 Blood Pressure 154/85 H 148/79 H Pulse Oximetry 99 100 Oxygen Delivery Room Air 10/03/25 13:39 10/03/25 13:45 10/03/25 13:59 Temperature Pulse Rate 58 L Pulse Rate [Bilateral Pedal (Dorsalis Pedis) Palpation] 58 L Respiratory Rate Blood Pressure Pulse Oximetry Oxygen Delivery Room Air 10/03/25 14:03 10/03/25 15:00 10/03/25 15:45 Temperature 36.4 C Pulse Rate 58 L 60 Pulse Rate [Bilateral Pedal (Dorsalis Pedis) Palpation] 59 L Respiratory Rate 20 16 Blood Pressure 172/76 H 180/86 H Pulse Oximetry 100 100 Oxygen Delivery 10/03/25 16:00 10/03/25 16:00 10/03/25 16:00 Temperature 36.6 C Pulse Rate 62 59 L Pulse Rate [Bilateral Pedal (Dorsalis Pedis) Palpation] Respiratory Rate 16 Blood Pressure 152/90 H Pulse Oximetry 100 Oxygen Delivery Room Air 10/03/25 16:45 10/03/25 17:25 10/03/25 17:45 Temperature Pulse Rate 62 Pulse Rate [Bilateral Pedal (Dorsalis Pedis) Palpation] 58 L 56 L Respiratory Rate 18 Blood Pressure 186/90 H Pulse Oximetry 100 Oxygen Delivery 10/03/25 18:00 10/03/25 20:00 10/03/25 20:18 Temperature 36.7 C Pulse Rate 58 L 64 62 Pulse Rate [Bilateral Pedal (Dorsalis Pedis) Palpation] Respiratory Rate 18 Blood Pressure 150/66 H Pulse Oximetry 100 Oxygen Delivery 10/03/25 20:58 10/03/25 22:00 10/04/25 00:00 Temperature Pulse Rate 57 L 57 L 54 L Pulse Rate [Bilateral Pedal (Dorsalis Pedis) Palpation] Respiratory Rate Blood Pressure Pulse Oximetry Oxygen Delivery 10/04/25 00:37 10/04/25 02:00 10/04/25 04:00 Temperature 36.7 C Pulse Rate 54 L 52 L 54 L Pulse Rate [Bilateral Pedal (Dorsalis Pedis) Palpation] Respiratory Rate 18 Blood Pressure 125/69 Pulse Oximetry 100 Oxygen Delivery 10/04/25 04:58 10/04/25 06:00 10/04/25 08:00 Temperature 36.6 C 36.8 C Pulse Rate 56 L 53 L 56 L Pulse Rate [Bilateral Pedal (Dorsalis Pedis) Palpation] Respiratory Rate 15 18 Blood Pressure 126/67 144/72 H Pulse Oximetry 100 99 Oxygen Delivery 10/04/25 08:00 10/04/25 09:47 Temperature Pulse Rate 57 L 66 Pulse Rate [Bilateral Pedal (Dorsalis Pedis) Palpation] Respiratory Rate Blood Pressure Pulse Oximetry Oxygen Delivery Intake/Output Intake/Output: Intake & Output 10/01/25 10/02/25 10/03/25 10/04/25 23:59 23:59 23:59 23:59 Intake Total 2807.8 3154.3 1135.6 550 Output Total 1500 1475 2350 Balance 1307.8 1679.3 -1214.4 550 Meds/Results Medications: Active Medications Generic Name Dose Route Start Last Admin Trade Name Freq PRN Reason Stop Dose Admin Acetaminophen 650 mg 09/29/25 22:33 10/03/25 17:43 Acetaminophen 325 Mg Tablet PO 650 mg Q4H PRN Administration Mild Pain (1-3) or Fever Albuterol/Ipratropium 3 ml 09/30/25 18:07 Ipratropium 0.5 Mg/Albuterol Sulfate 2.5 Mg (Base) Ampul.Neb 3 Ml INHALATION Q6HRT PRN Shortness Of Breath Or Wheezing Aspirin 81 mg 09/30/25 08:00 10/04/25 09:48 Aspirin 81 Mg Chewable Tablet PO 81 mg DAILY@0800 REYNA Administration Atorvastatin Calcium 40 mg 09/30/25 21:00 10/03/25 20:58 Atorvastatin 40 Mg Tablet PO 40 mg QHS REYNA Administration Carvedilol 25 mg 09/30/25 03:27 10/04/25 09:47 Carvedilol 25 Mg Tablet PO 25 mg Q12HR REYNA Administration Clopidogrel Bisulfate 75 mg 10/05/25 09:00 Clopidogrel Bisulfate 75 Mg Tablet PO QAM [facility] Dextrose 12.5 gm 09/30/25 03:47 Dextrose 50% 25 Gm/50 Ml Syringe IV PUSH PRN PRN Hypoglycemia Protocol Empagliflozin 10 mg 09/30/25 09:00 10/04/25 09:48 Empagliflozin 10 Mg Tablet PO 10 mg DAILY REYNA Administration Folic Acid 1 mg 09/30/25 09:00 10/04/25 09:48 Folic Acid 1 Mg Tablet PO 1 mg DAILY REYNA Administration Gabapentin 400 mg 09/30/25 02:29 Gabapentin 400 Mg Capsule PO QID PRN Muscle Pain Glucagon 1 mg 09/30/25 03:47 Glucagon For Inj 1 Mg Vial IM PRN PRN Hypoglycemia Protocol Glucose 15 gm 09/30/25 03:47 Glucose Oral Gel 15 Gm Of Glucse In 37.5 Gm Tube PO PRN PRN Hypoglycemia Protocol Hydralazine HCl 25 mg 09/30/25 09:00 10/04/25 09:48 Hydralazine Hcl 25 Mg Tablet PO 25 mg DAILY REYNA Administration Dextrose 1,000 mls @ 100 mls/hr 09/30/25 03:47 Dextrose 5% 1,000 Ml IVPB PRN PRN Hypoglycemia Protocol Insulin Aspart 2 - 5 units 09/30/25 08:00 10/04/25 09:44 Insulin Aspart (*Bkc) 100 Units/Ml SUB-Q Not Given TIDWM REYNA Protocol Losartan Potassium 50 mg 09/30/25 09:00 10/04/25 09:50 Losartan Potassium 50 Mg Tablet PO 50 mg DAILY REYNA Administration Morphine Sulfate 1 mg 09/30/25 18:07 10/03/25 22:40 Morphine Sulfate (*Crx) 4 Mg/Ml Inj IV PUSH 1 mg Q4H PRN Administration Pain Rated 7-10 Multi-Ingred Cream/Lotion/Oil/Oint 1 applic 10/02/25 09:00 10/04/25 09:51 Eucerin Cream 454 Gm Jar TOPICAL 1 applic DAILY REYNA Administration Oxycodone HCl 5 mg 09/30/25 02:29 10/04/25 09:49 Oxycodone Hcl (*Crx) 5 Mg Tab Ir PO 5 mg Q6H PRN Administration Pain 7-10 Pantoprazole Sodium 40 mg 09/30/25 09:00 10/04/25 09:50 Pantoprazole 40 Mg Tablet PO 40 mg Q12HR REYNA Administration Rivaroxaban 20 mg 09/30/25 02:30 10/03/25 17:43 Rivaroxaban 20 Mg Tablet PO 20 mg DAILY@1700 REYNA Administration Sertraline HCl 200 mg 09/30/25 21:00 10/03/25 20:57 Sertraline Hcl 50 Mg Tablet PO 200 mg HS REYNA Administration Sodium Bicarbonate 325 mg 10/03/25 20:25 10/04/25 09:49 Sodium Bicarbonate Tab 325 Mg Tablet PO 325 mg BID REYNA Administration Tamsulosin HCl 0.4 mg 09/30/25 09:00 10/04/25 09:49 Tamsulosin Hcl 0.4 Mg Capsule PO 0.4 mg QAM REYNA Administration Zolpidem Tartrate 10 mg 09/30/25 15:29 10/03/25 20:58 Zolpidem Tartrate (*Crx) 5 Mg Tablet PO 10 mg QHS PRN Administration Insomnia Radiology Results: ITS Impressions Abdomen/Pelvis CT 09/29/25 21:17 IMPRESSION: 1. 10 mm calculus in the right kidney lower calyx. Mild prominence of right renal pelvis. Mild perinephric stranding around the kidney, suggesting possible pyelonephritis. 2. No evidence of hydroureter. No bladder calculus. Chest X-Ray 10/01/25 11:58 IMPRESSION: 1. Improving interstitial pulmonary edema. Labs Labs: Laboratory Results - last 24 hr 10/03/25 10/03/25 10/04/25 15:16 20:27 03:46 WBC 4.7 RBC 3.08 L Hgb 8.6 L Hct 26.7 L MCV 86.7 MCH 27.9 MCHC 32.2 RDW 16.3 H Plt Count 178 MPV 11.1 H Immature Gran % (Auto) 0.4 Neut % (Auto) 55.1 Lymph % (Auto) 33.1 Traverse % (Auto) 6.7 Eos % (Auto) 4.1 Baso % (Auto) 0.6 Lymph # (Auto) 1.54 Traverse # (Auto) 0.3 Eos # (Auto) 0.2 Baso # (Auto) 0.0 Abs Immat Gran (auto) 0.02 Absolute Neuts (auto) 2.6 Absolute Nucleated RBC 0.000 Nucleated RBC % 0.0 Sodium 138 Potassium 3.4 Chloride 113 H Carbon Dioxide 18 L Anion Gap 7 BUN 20 Creatinine 1.86 H Estim Creat Clear Calc 57 Estimated GFR 40 L Glucose 111 H POC Capillary Glucose 91 155 H Calcium 8.3 L Phosphorus 3.9 Magnesium 1.8 Albumin 3.3 L 10/04/25 07:43 WBC RBC Hgb Hct MCV MCH MCHC RDW Plt Count MPV Immature Gran % (Auto) Neut % (Auto) Lymph % (Auto) [place]verse % (Auto) Eos % (Auto) Baso % (Auto) Lymph # (Auto) [place]verse # (Auto) Eos # (Auto) Baso # (Auto) Abs Immat Gran (auto) Absolute Neuts (auto) Absolute Nucleated RBC Nucleated RBC % Sodium Potassium Chloride Carbon Dioxide Anion Gap BUN Creatinine Estim Creat Clear Calc Estimated GFR Glucose POC Capillary Glucose 97 Calcium Phosphorus Magnesium Albumin
[2025-10-04] MEDS: CLOPIDOGREL BISULFATE 300 MG TABLET 600 MG PO (10:46)
--- NOTE | 2025-10-04 11:36 | PM.DS ---
DS: Admitting Diagnosis Discharge Date 10/04/25 Admitting Diagnosis Shortness of breath, CAD DS: Discharge Diagnosis Discharge Diagnosis (1) Non-ST elevation GA (NSTEMI): Code(s): I21.4 - Non-ST elevation (NSTEMI) myocardial infarction Status: Acute Assessment and Plan: Patient presents to the ED by ambulance from home complaining of nausea, vomiting, SOB and right flank pain. Troponin peaked at 14.4. EKG showing sinus tachycardia (101), possible LAE and nonspecific ST-T wave changes. Repeat EKG showing similar findings. Echo showing EF 30-35% with all segments hypokinetic except basal segments (consider stress induced vs multivessel disease), LV enlarged, diastolic dysfunction, normal appearing bioprosthetic valve, mod pulm HTN. Patient is already on aspirin, beta-loida, atorvastatin on admission Cardiology consulted. Patient underwent LHC (10/03) showing 80% stenosis of prox RCA s/p PCI and ROSA placement. Planned for staged approach to a 70% stenosis of the RPDA and a 70-90% stenosis to a small RPLA Continue with atorvastatin and carvedilol. Xarelto resumed and Plavix added. (2) Pyelonephritis: Code(s): N12 - Tubulo-interstitial nephritis, not specified as acute or chronic Status: Acute Assessment and Plan: CT imaging showing mild perinephri stranding around right kidney. UA showing 3+ protein, tr glucose, 2+ bld, Neg LE/N, 11-20 RBC and no WBC. WBC 13.6K -> normal. The patient is having right sided back tenderness present on admission but suspect musculoskeletal BCx negative . Rocephindc Suspect back pain worse from the metal table in label sewer. Encourage use of the heating pad Cx negative so will stop abx. Follow clinically. (3) Chronic kidney disease, stage 3b: Code(s): N18.32 - Chronic kidney disease, stage 3b Status: Acute Assessment and Plan: Patient with normal renal function in 2022. Creatinine earlier this year runs 1.4-1.7 range. Creatinine 1.7 on admission. 3+ protein noted with Prot/Cr 3.7gm Cr was up to 2.3 but 1..86 today Avoid nephrotoxic medication. Add oral bicarb Monitor urine output, renal function and electrolytes. (4) Community acquired pneumonia: Code(s): J18.9 - Pneumonia, unspecified organism Status: Acute Assessment and Plan: CXR showing mild CMG and post-op changes with patchy airspace opacities bilateral (R>L) lung bases. Presumed PNA so started on Zithromax and Rocephin. QTC is 478 so Azithro changed to Doxy. CT Abd showing basilar ground glass opacities due to pulmonary edema c/w CHF MRSA nasal swab negative. Cultures obtained. Suspect CHF related to low EF and and less likely PNA. Rocephin stopped. (5) CHF (congestive heart failure): Code(s): I50.9 - Heart failure, unspecified Status: Acute Assessment and Plan: As above. BNP 23K. Suspect acute systolic and diastolic CHF. Repeat CXR showing improved interstitial pulmonary edema. Not currently on diuretics. 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 The patient's blood glucose was reviewed on 10/03 Home meds: Empagliflozin Glucose remains well controlled. Continue AccuCheks covering with sliding scale. Hypoglycemia protocol available as needed. 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 Lungs clear. Remains on room air. Continue with DuoNeb PRN (10) Depression with anxiety: Code(s): F41.8 - Other specified anxiety disorders Status: Chronic Assessment and Plan: Mood stable. Zoloft continued. Ambien available p.r.n.. Plan DVT prophylaxis - Zoloft Code status -full DS: Summary Hospital Course Hospital Course: Patient with history of diabetes presented with nausea vomiting, shortness of breath and right flank pain. Troponin was elevated. Echo showed LVEF 30-35% segments hypokinetic cardiology was consulted. Patient underwent LHC (10/03) showing 80% stenosis of prox RCA s/p PCI and ROSA placement. Planned for staged approach to a 70% stenosis of the RPDA and a 70-90% stenosis to a small RPLA Continue with atorvastatin and carvedilol. Xarelto resumed and Plavix added. Patient had SARAH on CKD. CT showed mild perinephric stranding around right kidney. Urology was consulted. Recommended outpatient follow-up for nuclear medicine renal scan Patient seen examined at bedside. He is feeling better. Denies any chest pain, shortness off breath, nausea vomiting. he Is requesting to be discharged. Status at Discharge Overall status at discharge: patient is back to baseline Time Spent with Patient Time attestation: Total time spent providing and/or coordinating discharge services: Time spent: Greater than 30 minutes Exam Narrative: AF 97.6 172/76 58 20 100% ra Gen - NARD Chest - CTA bilaterally, nml RR CV - RRR S1/S2. Tele showing no significant dysrhythmias Abd - Soft, NT/ND, Positive BS Back - tender right para-spinal muscles Ext - No pedal edema. Psych - Nml mood and affect Skin - Warm and dry. Const: General: cooperative, comfortable, no acute distress, well developed, awake, Physically active, average body habitus and well nourished Nutritional Appearance: average body habitus and well nourished Orientation/consciousness: oriented to person, oriented to place, oriented to time and patient oriented x3 Limitations: no limitations HENMT: Head: normal to inspection, No palpable skull fracture present, normocephalic, atraumatic and abrasion Eyes: General: appearance normal, both eyes and all related structures Alignment and Position: alignment normal Periorbital: periorbital findings normal Eyelids: eyelids normal Pupils: Equal, round and reactive pupils present Neck: Neck: normal visual inspection, full ROM and no lymphadenopathy Chest: Chest palpation & inspection: normal inspection of the chest Resp: Effort & Inspection: normal respiratory effort Auscultation: clear to auscultation bilaterally Cardio: Palpation: normal PMI Rate: regular rate Rhythm: regular rhythm Heart sounds: S1 normal heart sound present and S2 normal heart sound present GI: Inspection: normal to inspection Auscultation: normal bowel sounds Rectal Exam: deferred Other: CVA tenderness noted to the flank area. Skin: General skin exam: normal color Lesions: no lesions Rashes: no rashes Trauma: no lacerations or abrasions Wounds: no wounds Neuro: General: oriented to person, oriented to place, oriented to time and patient oriented x3 Cranial nerves: Yes Equal, round and reactive pupils present and Yes Normal hearing present Cognition (Neuro): normal cognition Speech: normal speech Motor exam (neuro): 5/5 motor strength present throughout Sensory Exam: normal sensation Extrem: General: normal to inspection Right upper extremity: normal to inspection and shoulder/upper arm Left upper extremity: normal to inspection and shoulder/upper arm Right lower extremity: normal to inspection Left lower extremity: normal to inspection Psych: Appearance: grossly normal Mental Status: mental status grossly normal Speech and movement: Normal speech and movement present Affect: normal affect Attitude: cooperative Thought process: Normal thought process present Insight: Good insight present (Psych) Judgement: Good judgement present (Psych) DS: Data Data Completed and Pending Labs on day of discharge: Labs from last 24 hours 10/04/25 10/04/25 10/03/25 07:43 03:46 20:27 WBC 4.7 RBC 3.08 L Hgb 8.6 L Hct 26.7 L MCV 86.7 MCH 27.9 MCHC 32.2 RDW 16.3 H Plt Count 178 MPV 11.1 H Immature Gran % (Auto) 0.4 Neut % (Auto) 55.1 Lymph % (Auto) 33.1 [place] % (Auto) 6.7 Eos % (Auto) 4.1 Baso % (Auto) 0.6 Lymph # (Auto) 1.54 [place] # (Auto) 0.3 Eos # (Auto) 0.2 Baso # (Auto) 0.0 Abs Immat Gran (auto) 0.02 Absolute Neuts (auto) 2.6 Absolute Nucleated RBC 0.000 Nucleated RBC % 0.0 Sodium 138 Potassium 3.4 Chloride 113 H Carbon Dioxide 18 L Anion Gap 7 BUN 20 Creatinine 1.86 H Estim Creat Clear Calc 57 Estimated GFR 40 L Glucose 111 H POC Capillary Glucose 97 155 H Calcium 8.3 L Phosphorus 3.9 Magnesium 1.8 Albumin 3.3 L 10/03/25 15:16 WBC RBC Hgb Hct MCV MCH MCHC RDW Plt Count MPV Immature Gran % (Auto) Neut % (Auto) Lymph % (Auto) [place] % (Auto) Eos % (Auto) Baso % (Auto) Lymph # (Auto) [place] # (Auto) Eos # (Auto) Baso # (Auto) Abs Immat Gran (auto) Absolute Neuts (auto) Absolute Nucleated RBC Nucleated RBC % Sodium Potassium Chloride Carbon Dioxide Anion Gap BUN Creatinine Estim Creat Clear Calc Estimated GFR Glucose POC Capillary Glucose 91 Calcium Phosphorus Magnesium Albumin Preliminary micro results at discharge 09/30/25 09:49 Sputum Culture - Preliminary Sputum 09/29/25 21:33 Blood Culture - Preliminary Blood 09/29/25 21:34 Blood Culture - Preliminary Blood Discharge Plan Discharge Attending physician on discharge: Divine Norwood Consulting providers: Ana Laura Loza; Mikey Pedro; Loi Poe; Divine Norwood Discharging Clinician: Divine Norwood Anticipated Discharge Date/Time: 10/04/25 11:24 Patient Disposition: Home Activity: as tolerated Diet: heart healthy Discharge Instructions: [facility] [address] [place] [address] DISCHARGE INSTRUCTIONS - POST PCI Activity 1. No driving until 48 hours post procedure 2. No lifting, pushing or pulling more than 10 pounds for 1 week. 3. No strenuous exercise or activity (including sexual activity) until you are released to do so. 4. May shower but no tub baths or swimming pool for 1 week. Avoid commercial hot tubs. They are too hot. 5. Place a new bandage daily for 5 days Medications DO NOT STOP YOUR MEDICATIONS ONLY YOUR PRESCRIPTIONIST CAN STOP THE FOLLOWING MEDICATIONS - PLEASE CALL THE OFFICE WITH QUESTIONS. *Aspirin *Ticagrelor (Brilinta) *Atorvastatin *Lisinopril or ARB *Metoprolol tartrate or succinate *Clopidogrel (Plavix) *Prasugrel (Effient) Important Reminders 1. Keep your stent card in your wallet at all times 2. Follow a heart healthy diet paying extra attention to cholesterol and fats. 3. Stay hydrated. 4. If you have chest pain unrelieved by rest or nitroglycerin (if prescribed) call 911 immediately. *For any other questions please call the office at [phone]. Office hours are 8AM 4:30PM Thursday through Thursday. 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 Patient Instructions: Antibiotic Form, Rivaroxaban (By mouth), Flank Pain (ED), Pneumonia (DC) Patient Language: Italian Stand Alone Forms: General Discharge Information Follow-up/Referrals: Jorge,Masha [Other] - 1 Week Mikey Pedro MD [Physician, Cardiology] - Call for Appointment Loi Poe MD [Physician, Urology] - Call for Appointment Discharge Medications: New clopidogrel [Plavix] 75 mg tablet 75 mg PO DAILY Qty: 90 2RF tamsulosin 0.4 mg Capsule 0.4 mg PO QAM Qty: 30 0RF oxycodone 5 mg Tablet 5 mg PO Q6H PRN (Reason: Pain 7-10) Qty: 12 0RF Continued carvedilol 25 mg tablet 25 mg PO Q12H hydralazine 25 mg tablet 25 mg PO DAILY losartan 50 mg tablet 50 mg PO DAILY pantoprazole 40 mg tablet,delayed release (DR/EC) 40 mg PO Q12H Xarelto 20 mg tablet 20 mg PO QPM zolpidem 10 mg tablet 10 mg PO QHS folic acid 1 mg tablet 1 mg PO DAILY ergocalciferol (vitamin D2) 1,250 mcg (50,000 unit) capsule 1,250 mcg PO WEEKLY Patient Comments: Pt takes on Wednesdays. aspirin 81 mg tablet,chewable 1 tablet PO DAILY Jardiance 10 mg tablet 10 mg PO DAILY metoprolol succinate 25 mg tablet extended release 24 hr 25 mg PO DAILY gabapentin 300 mg capsule 400 mg PO QID PRN (Reason: Muscle Pain) atorvastatin 80 mg tablet 40 mg PO QPM sertraline 100 mg tablet 200 mg PO HS Patient Comments: patient taking 200mg ondansetron 4 mg tablet,disintegrating 4 mg translingual Q8H PRN (Reason: nausea and vomiting) Discontinued oxycodone 5 mg tablet 5 mg PO Q6H PRN (Reason: pain) Qty: 12 0RF Date of admission: 10/01/25 12:48 Primary Care Provider: Jorge,Masha Admitting Provider: Lucas Valderrama Attending physician on admission: Lucas Valderrama Condition: Stable Quality VTE Prophylaxis VTE prophylaxis: pharmacologic ordered
--- NOTE | 2025-10-04 13:44 | PC.NURSE ---
patient left at 1338. patient stated he needed to leave at this time due to his needing to be at her doctors appointment. Patient educated on the risks of leaving without his medications. Multiple calls made to [facility] who stated that they were on the way. However have not yet arrived in time for the patient to make it to his 's appointment. Patient stated that he would come back after her appointment to get his medications. Charge nurse made aware of the situation as well as the community health nurse. Patient stable, belongings with patient. No signs of distress.
== END 2025-10-04 13:38 | disposition home or self-care (01) | DRG 710 ==
LOC: ANHED 22:32 → ANHIMU 23:38
PROVIDERS: Internal Medicine; Internal Medicine Interventional Cardiology; Nurse Practitioner; Student in an Organized Health Care Education/Training Program; Admitting Provider Internal Medicine; Emergency Provider Emergency Medicine; Visit Provider Internal Medicine
PROC: 4A023N7 Measurement of Cardiac Sampling and Pressure, Left Heart, Percutaneous Approach (ICD-10-PCS; CPT 93452; principal; 2025-10-03 10:00)
PROC: 027034Z Dilation of Coronary Artery, One Artery with Drug-eluting Intraluminal Device, Percutaneous Approach (ICD-10-PCS; 2025-10-03 10:00)
PROC: 027034Z Dilation of Coronary Artery, One Artery with Drug-eluting Intraluminal Device, Percutaneous Approach (ICD-10-PCS; 2025-10-03 10:00)
PROC: 027034Z Dilation of Coronary Artery, One Artery with Drug-eluting Intraluminal Device, Percutaneous Approach (ICD-10-PCS; 2025-10-03 10:00)
DX: A41.9 Sepsis, unspecified organism (principal); J18.9 Pneumonia, unspecified organism; E11.22 Type 2 diabetes mellitus with diabetic chronic kidney disease; I13.0 Hypertensive heart and chronic kidney disease with heart failure and stage 1 through stage 4 chronic kidney disease, or unspecified chronic kidney disease; I25.10 Atherosclerotic heart disease of native coronary artery without angina pectoris; N18.32 Chronic kidney disease, stage 3b; I21.4 Non-ST elevation (NSTEMI) myocardial infarction; N17.9 Acute kidney failure, unspecified; N12 Tubulo-interstitial nephritis, not specified as acute or chronic; L40.9 Psoriasis, unspecified; L30.9 Dermatitis, unspecified; I50.41 Acute combined systolic (congestive) and diastolic (congestive) heart failure; I25.5 Ischemic cardiomyopathy; E78.5 Hyperlipidemia, unspecified; I48.92 Unspecified atrial flutter; E11.42 Type 2 diabetes mellitus with diabetic polyneuropathy; J44.0 Chronic obstructive pulmonary disease with (acute) lower respiratory infection; I48.91 Unspecified atrial fibrillation; F41.8 Other specified anxiety disorders; Z87.891 Personal history of nicotine dependence; Z89.411 Acquired absence of right great toe; Z95.2 Presence of prosthetic heart valve; Z95.5 Presence of coronary angioplasty implant and graft; Z86.718 Personal history of other venous thrombosis and embolism; Z79.01 Long term (current) use of anticoagulants; Z86.711 Personal history of pulmonary embolism
CPT/HCPCS: 36415; 71045; 74177; 80053; 80069; 81001; 82550; 82570; 82948; 83036; 83605; 83690; 83735; 83880; 84100; 84156; 84300; 84439; 84443; 84480; 84484; 85025; 85027; 85610; 85730; 85999; 86140; 87040; 87070; 87081; 87186; 87205; 87449; 87637; 87641; 92978; 93005; 93458; 94640; 94762; 96365; 96367; 96375; 99285; A9270; C1725; C1753; C1760; C1769; C1874; C1887; C1894; C8929; C9600; G0269; G0378; G0379; J0456; J0696; J1171; J1644; J2003; J2250; J2270; J2305; J2405; J3010; J3475; J7030; J7040; J7050; Q9957; Q9967

== ENCOUNTER 2025-10-30 12:51 | Emergency (ER) | payer OTHER, SELFPAY ==
--- NOTE | ~2025-10-30 | CT_ITS ---
EXAMINATION: CT abdomen pelvis wo con DATE: 10/30/2025 14:17 INDICATION: Flank pain TECHNIQUE: Computed tomography (CT) of the abdomen and pelvis was performed without intravenous contrast. The dose-length product was 801.76 mGy-cm. Automated exposure control and iterative reconstruction technique were employed. COMPARISON: CT dated 09/29/2025 FINDINGS: Lung bases are unremarkable. Heart size normal. No significant pleural or pericardial effusion. There is a cluster of stones in the lower pole the right kidney. There is moderate-severe right hydronephrosis with abrupt termination of the renal pelvis at the UPJ, suspicious for UPJ obstruction. There is punctate nonobstructing left nephrolithiasis. There is bilateral perinephric stranding. Nonobstructive bowel gas pattern. Mild diffuse bladder wall thickening. No abnormal pelvic masses or fluid collections. Moderate lumbar and lower thoracic spondylosis. 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 Moderate diffuse atherosclerosis without evidence for aneurysm. There is left inguinal lymphadenopathy, likely reactive. Mild left periaortic lymph node enlargement, likely reactive. Gallbladder is present. IMPRESSION: 1. Moderate-severe right hydronephrosis with abrupt termination of the UPJ. Cannot exclude UPJ obstruction. Moderate bilateral perinephric stranding with bladder wall thickening. Cannot exclude ascending urinary tract infection with cystitis. Clinically correlate. 2: Nonobstructing bilateral nephrolithiasis. Reviewed, dictated and finalized at location O. COMMUNICATIONS CLERK IMPRESSION: 1. Moderate-severe right hydronephrosis with abrupt termination of the UPJ. Can not exclude UPJ obstruction. Moderate bilateral perinephric stranding with blad alyx wall thickening. Cannot exclude ascending urinary tract infection with cyst itis. Clinically correlate. 2: Nonobstructing bilateral nephrolithiasis.
[2025-10-30 12:55] VITALS: BP 147/77; PULSE 61; RESP 16; TEMP 36.4; O2SAT 100
[2025-10-30 13:38] LABS: Add Urine Microscopic? YES; Appearance Urine Clear (Clear); Glucose Urine UA 2+ mg/dL (Negative); Leukocyte Esterase Ur Negative LEU/UL (Negative); Nitrate Urine Negative (Negative); Non Pathogenic Casts 0-2; Specific Grav Ur 1.014 (1.001-1.035)
[2025-10-30 13:53] LABS: Hematocrit 35.6 % (42.0-52.0); Hemoglobin 11.0 g/dL (14.0-18.0); Immature Granulocyte Percent A 0.4 % (0-0.5); Lymphocytes Absolute Auto 1.53 K/mm3 (0.9-3.2); Mean Corpuscular HGB Conc 30.9 g/dl (32-36); Mean Corpuscular Hemoglobin 28.2 pg (26-34); Mean Corpuscular Volume 91.3 fl (80-100); Nucleated Red Blood Cells Absolute Auto 0.000 K/mm3 (0.0-0.012); Nucleated Red Blood Cells Perc 0.0 % (0.0-0.2); Platelet Count Result 199 k/mm3 (150-375); Red Blood Count 3.90 M/mm3 (4.6-6.20); White Blood Count 7.0 K/mm3 (4.5-10.0)
[2025-10-30 14:20] LABS: Alanine Aminotransferase 14 U/L (6-50); Albumin Level 4.7 g/dL (3.5-5.1); Alkaline Phosphatase 186 U/L (38-126); Anion Gap 13 mmol/L (4-12); Aspartate Amino Transferase 29 U/L (17-59); Bilirubin,Total 0.3 mg/dL (0.2-1.3); Blood Urea Nitrogen 36 mg/dL (9-20); Calcium 8.8 mg/dL (8.4-10.2); Carbon Dioxide 16 mmol/L (22-30); Chloride 111 mmol/L (98-107); Estimated CRCL calculation 45 ml/min; Estimated Glomerular Filt Rate 34; Glucose 126 mg/dL (65-110); Potassium 4.8 mmol/L (3.4-5.0); Sodium 140 mmol/L (137-145); Total Protein 9.0 g/dL (6.3-8.2)
--- OUTSIDE RECORDS SUMMARY | 2025-10-30 14:23 | XMS_ITS | Encounter Summary ---
Author Organization [facility] Healthcare Address [address] [place] [address] Care Team Providers Care Viticulture Teacher Name Role Phone Aniceto Olivera MD Unavailable Miscellaneous, Not In File Unavailable Unava ilMasha Napier GRAIN COMBINER Primary Care Provider [phone] Keon Smith DPM Unavailable [phone] Encounter Details Date Type Department Care Team (Late st Contact Info) Description 04/21/2025 Telephone [facility] Radiology [address] [place] [address] Lisa Lacey RN Social History Tobacco Use Types Packs/Day Years Used Date Smoking Tobacco: Former Cigarettes 1.5 2.1 S tarted: 10/08/2023 Passive Smoke Exposure: Past Smokeless Tobacco: Never [facility] Utilities Answer Date Recorded In the past 12 months has [employer] electric, gas, oil, or water company threatened to shut off services in your home? No 12/03/2024 Social Connection and Isolation Panel Answer Date Recorded In a typical week, how many times do you talk on the phone with family, friends, or neighbors? More than three times a week 12/03/2024 How often do you get togethe r with friends or relatives? More than three times a week 12/03/2024 How often do you attend chur ch or jain services? More than 4 times per year 12/03/2024 Do you belong to any clubs o r organizations such as rastafari groups, unions, fraternal or athletic groups, or school groups? No 12/03/2024 How often do you attend meet ings of the clubs or organizations you belong to? Never 12/03/2024 Are you , , di vorced, , never , or living with a partner? 12/03/2024 AUDIT-C Answer Date Recorded Frequency of Alcohol Consumption Not on file 07/25/2024 Q2: How many drinks containi ng alcohol do you have on a typical day when you are drinking? Patient does not drink Frequency of Binge Drinking Not on file 07/10 Overall Financial Resource Strain (CARDIA) Answe r Date Recorded How hard is it for you to pa y for the very basics like food, housing, medical care, and heating? Not very hard 12/03/2024 PHQ-2 Answer Date Recorded PHQ-2 Total Score 0 12/03/2024 [facility] - Occupational Stress Questionnaire Answer Date Recorded Do you feel stress - tense, restless, nervous, or anxious, or unable to sleep at night because your mind is troubled all the time - these days? Very much 11/08/2023 Hunger Vital Sign Answer Date Recorded Within the past 12 months, y ou worried that your food would run out before you got the money to buy more. Never true 12/03/19 Within the past 12 months, t he food you bought just didn't last and you didn't have money to get more. Never true 12/03/2024 PRAPARE - Transportation Answer Date Re corded In the past 12 months, has l ack of transportation kept you from medical appointments or from getting medications? No 11/10 In the past 12 months, has l ack of transportation kept you from meetings, work, or from getting things needed for daily living? No 12/03/2024 Housing Stability Vital Sign Answer Anthony e Recorded In the last 12 months, was t here a time when you were not able to pay the mortgage or rent on time? No 11/25/2023 In the last 12 months, how many places have you lived? 1 11/25/2023 In the last 12 months, was t here a time when you did not have a steady place to sleep or slept in a long term (including now)? No 11/25/2023 Housing Stability Vital Sign Answer Anthony e Recorded In the last 12 months, was t here a time when you were not able to pay the mortgage or rent on time? No 12/03/2024 In the past 12 months, how m any times have you moved where you were living? 0 12/03/2024 At any time in the past 12 m ont, were you homeless or living in a long term (including now)? No 12/03/2024 Personal Safety Answer Date Recorded Have you ever been in or are you currently in a harmful physical or emotional relationship or is someone making you feel afraid or unsafe? 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
--- OUTSIDE RECORDS SUMMARY | 2025-10-30 14:23 | XMS_ITS | Encounter Summary ---
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 Answer Date of Assessment Author Status No 09/25/2019 1:24 PM CALENDER LET OFF HELPER Activ e * Do you have serious [...] on filedocumented in this encounter Care Teams Top Cleaner Relationship Specialty Start Date End Date Uyen Vieyra MD [address] [place] [address] [place] [address] PCP - General FAMILY PRACTICE 04/17/19 documented as of this encounter
--- OUTSIDE RECORDS SUMMARY | 2025-10-30 14:23 | XMS_ITS | Encounter Summary ---
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 Answer Date of Assessment Author Status No 09/25/2019 1:24 PM ENGRAVING PLATE MAKER Activ e * Do you have serious [...] on filedocumented in this encounter Care Teams Steam Drier Operator Relationship Specialty Start Date End Date Uyen Vieyra MD [address] [place] [address] [place] [address] PCP - General FAMILY PRACTICE 04/17/19 documented as of this encounter
--- OUTSIDE RECORDS SUMMARY | 2025-10-30 14:23 | XMS_ITS | Clinical Summary ---
Author Organization [facility] Address [address] [place] [address] Care Team Providers Care Charging Plug Placer Name Role Phone Uyen Vieyra MD Primary Care Provider [phone] Allergies Active Allergy Reactions Criticality Noted Date [...] Noted Date Diagnosed Date Diabetic foot infection 09/25/2019 Chronic pain of both knees 08/06/2018 Thoracic [...] 108.9 kg (240 lb) 01/10/2020 12:02 PM SANDWICH PEDDLER Height 185.4 cm (6' 1) 04/17/2020 5:20 PM CDT Body Mass Index 31.66 01/10/2020 12:02 PM SANDWICH PEDDLER Plan of Treatment Health Maintenance Due Date Last Done Comments Kidney Health Evaluation 1980 Lipid Panel 1980 Annual Physical 1983 Diabetes: Retinopathy Eye Exam 1998 Hepatitis C 1998 Hepatitis B Vaccines (1 of 3 - 19+ 3-dose series) 1999 Pneumococcal Vaccine: Pediat rics (0 to 5 Years) and At-Risk Patients (6 to 49 Years) (1 of 2 - PCV) 1999 HPV Vaccines (1 - 3-dose SCD M series) 2007 Hemoglobin A1C 03/26/2020 09/26/2019 COVID-19 Vaccine ( - 2024-2 6 season) 2025 Influenza Adult (#1) 2025 DTaP, Tdap and Td Vaccines ( 2 - Td or Tdap) 06/14/2029 06/14/2019 Hepatitis A Vaccines Aged Out No long er eligible based on patient's age to complete [...] Comments HEMOGLOBIN, GLYCOSYLATED Routine 09/26/2019 5:58 AM SANDWICH PEDDLER from Last 3 Months or Most Recently Relevant to Health Maintenance Results * (ABNORMAL) HEMOGLOBIN, GLYCOSYLATED (09/26/2019 5:58 AM SANDWICH PEDDLER) HGB A1C 10.5(H) <5.7 % 09/26/2019 12:00 PM SANDWICH PEDDLER [facility] Comment: INCREASED RISK OF DIABETES <5.7% NON-DIABETES 5.7-6.4% INCREASED RISK FOR FUTURE DIABETES > OR = 6.5 CONSISTENT WITH DIABETES STANDARDS OF MEDICAL CARE IN DIABETES-2010 DIABETES CARE, 33(SUPP 1): S1-S61,2010 09/26/2019 5:58 AM SANDWICH PEDDLER Deisy Gregory PA-C LABORATORY Final Result [facility] [address] [place] [address], from Last 3 Months or Most Recently Relevant to Health Maintenance Insurance [employer] Advance Directives * Full Code (Latest Code Status on File) Date Activated Date Inactivated Comments 09/25/2019 12:09 PM 09/27/2019 12:08 PM Care Teams Charging Plug Placer Relationship Specialty Start Date End Date Uyen Vieyra MD [address] [place] [address] [place] [address] PCP - General FAMILY PRACTICE 04/17/19
--- OUTSIDE RECORDS SUMMARY | 2025-10-30 14:23 | XMS_ITS | Clinical Summary ---
Author Organization [facility]) Address [address] [place] [address] Care Team Providers Care Supervisor Press Room Name Role Phone Uyen Vieyra MD Primary Care Provider [phone] Source Comments [facility],non-owned Affiliates and Associated Physician Practices is amultiple site organization consisting of ambulatory clinics and hospital sitesin [place], [place], [place] and [place]. This disclosure is being madepursuant to the Care Everywhere program and may not contain all information available regarding this patient. Last updated 18.[facility] Allergies Active Allergy Reactions Criticality Noted Date [...] Unable or Declines to Respond No 04/24/2023 AUDIT-C Answer Date Recorded Q1: How often do you have a drink containing alc ohol? Never 05/04/2020 Average Number of Drinks Not on file 020 Frequency of Binge Drinking Not on file 04/10 Sex and Gender Information Value Date Recorded Sex Assigned at Not on file Legal Sex Male 12:09 PM [employer] Gender Identity Not on file Sexual Orientation [...] VACCINE (1 of 2 - PCV) 1999 HPV VACCINE (1 - 3-dose SCDM series) 2007 DEPRESSION SCREENING 11/09/2024 COVID-19 VACCINE (1 - 2024-2 6 season) 2025 INFLUENZA VACCINE (#1) 2025 ZOSTER VACCINE (1 of 2) 2030 HIB VACCINE Aged Out No longer eligi ble based on patient's age to complete this topic MENINGOCOCCAL (Group B) VACC INE SHARED DECISION-MAKING Aged Out No longer eligibl e based on patient's age to complete this topic MENINGOCOCCAL GROUPS A/C/Y/W VACCINE Aged Out No longer eligible b ased on patient's age to complete this topic Insurance [facility] [place] [address] [facility] Advance Directives * Full Code (Latest Code Status on File) Date Activated Date Inactivated Comments 04/02/2023 8:00 PM To update the patient's code status, place a code status order. Do not modify or discontinue any currently active code status orders. Care Teams Supervisor Press Room Relationship Specialty Start Date End Date Uyen Vieyra MD [address] [place] [address] [place] [id number] PCP - General 07/16/18
--- OUTSIDE RECORDS SUMMARY | 2025-10-30 14:23 | XMS_ITS | Clinical Summary ---
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 Role Phone Aniceto Olivera MD Unavailable Miscellaneous, Not In File Unavailable Unava ilable Masha Amador REHABILITATION SERVICES COORDINATOR Primary Care Provider [phone] Keon Smith DPM Unavailable Allergies Active Allergy Reactions Criticality Noted Date Comments Chlorhexidine Gluconate Hives Medium 10/23/2025 Medications aspirin 81 mg chewable tablet Take 1 tablet (81 mg total) by mouth daily 30 tablet 11 03/04/20 24 Active acetaminophen 500 mg capsule Take 2 capsules (1,000 mg total) by mouth every 6 (six) hours as needed for pain for up to 28 doses 28 capsule 07/26/20 24 Active atorvastatin (LIPITOR) 40 mg tablet Take 1 tablet (40 mg total) by mouth daily 30 tablet 2 05/29/20 25 026 Active folic acid (FOLVITE) 1 mg tabletIndicati ons:Folate deficiency Take 1 tablet (1 mg total) by mouth daily 30 tablet 5 06/26/20 25 026 Active rivaroxaban (Xarelto) 20 mg tabletIndicati ons:DVT, lower extremity, recurrent, right (HCC) Take 1 tablet (20 mg total) by mouth daily with breakfast 90 tablet 08/21/20 25 Active zolpidem (AMBIEN) 10 mg tablet Take 1 tablet (10 mg total) by mouth nightly as needed for sleep for sleep 30 tablet 10/04/20 25 Active gabapentin (NEURONTIN) 400 mg capsule TAKE 1 CAPSULE(400 MG) BY MOUTH THREE TIMES DAILY 90 capsule 1 10/13/20 25 Active clopidogreL (PLAVIX) 75 mg tablet Take 1 tablet (75 mg total) by mouth daily 10/04/20 25 Active tamsulosin (FLOMAX) 0.4 mg extended release capsule Take 1 capsule (0.4 mg total) by mouth daily 10/04/[address] (PROTONIX) 40 mg EC tablet Take 1 tablet (40 mg total) by mouth daily 03/28/20 25 Active carvediloL (COREG) 25 mg tablet Take 1 tablet (25 mg total) by mouth 2 (two) times a day with meals 60 tablet 10/22/20 25 026 Active empagliflozin (JARDIANCE) 10 mg tablet Take 1 tablet (10 mg total) by mouth daily 30 tablet 10/22/20 25 026 Active losartan (COZAAR) 50 mg tablet Take 1 tablet (50 mg total) by mouth daily 30 tablet 10/22/20 25 026 Active hydrALAZINE (APRESOLINE) 25 mg tabletIndicati ons:hypertensi on Take 1 tablet (25 mg total) by mouth 3 (three) times a day 90 tablet 10/22/20 25 026 Active furosemide (LASIX) 20 mg tablet Take 1 tablet (20 mg total) by mouth daily for 10 days 10 tablet 10/22/20 25 025 Active sertraline (ZOLOFT) 100 mg tabletIndicati ons:Anxiety Take 2 tablets (200 mg total) by mouth daily 60 tablet 10/22/20 25 Active oxyCODONE (ROXICODONE) 5 mg immediate release tabletIndicati ons:Pain Take 1 tablet (5 mg total) by mouth every 6 (six) hours as needed for pain 16 tablet 10/25/20 25 Active carvediloL (COREG) 25 mg tablet Take 1 tablet (25 mg total) by mouth 2 (two) times a day with meals 60 tablet 11 12/12/19 025 Discontinued hydrALAZINE (APRESOLINE) 25 mg tabletIndicati ons:hypertensi on Take 1 tablet (25 mg total) by mouth 3 (three) times a day 90 tablet 11 12/12/19 025 Discontinued empagliflozin (JARDIANCE) 10 mg tablet Take 1 tablet (10 mg total) by mouth daily 90 tablet 3 03/13/20 025 Discontinued losartan (COZAAR) 50 mg tablet Take 1 tablet (50 mg total) by mouth daily 90 tablet 3 03/13/20 025 Discontinued tiZANidine (ZANAFLEX) 2 mg tablet Take 1 tablet (2 mg total) by mouth every 6 (six) hours as needed for muscle spasms 30 tablet 05/29/20 025 Discontinued(Jerrod bond Reported) cyanocobalamin (Vitamin B-12) 1,000 mcg tabletIndicati ons:B12 deficiency Take 1 tablet (1,000 mcg total) by mouth daily 30 tablet 11 06/26/20 025 Discontinued(Jerrod bond Reported) ferrous sulfate 325 mg (65 mg of elemental iron) tabletIndicati ons:Iron Deficiency Anemia Take 1 tablet (325 mg total) by mouth daily with breakfast 30 tablet 3 06/26/20 025 Discontinued(Jerrod bond Reported) sertraline (ZOLOFT) 100 mg tabletIndicati ons:Anxiety Take 2 tablets (200 mg total) by mouth daily 90 tablet 1 07/21/20 025 Discontinued gabapentin (NEURONTIN) 400 mg capsule TAKE 1 CAPSULE(400 MG) BY MOUTH THREE TIMES DAILY 90 capsule 1 08/15/20 025 Discontinued zolpidem (AMBIEN) 10 mg tablet Take 1 tablet (10 mg total) by mouth nightly as needed for sleep for sleep 30 tablet 09/03/20 025 Discontinued(Re order) oxyCODONE (ROXICODONE) 5 mg immediate release tabletIndicati ons:Pain Take 1 tablet (5 mg total) by mouth every 6 (six) hours as needed for pain 16 tablet 10/24/20 25 025 Discontinued(Re order) Active Problems Problem Noted Date Diagnosed Date Trigger ring finger of left hand 10/23/2025 Overview (10/23/2025): -left ring finger stuck every morning -occurs multiple times per day since May Ortho hand referral placed. 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 He is elevating legs at night, reports treated with oxyxodone and dilaudid during recent admission. No improvement with tylenol at home. Scheduled for cardiology follow up later this week. He is requesting oxycodone refill. I will send short one time refill for leg pain. Reviewed using as needed and side effects. Continue xarelto daily. Will call about [facility]. Heart failure with reduced ejection fraction Assessment & Plan (10/22/2025 8:54 AM ICT BUSINESS DEVELOPMENT MANAGER): Patient with recent history NSTEMI noted present for 10/01/2025 status post PCI to the proximal RCA noted to have 80% stenosis with ROSA placed. LHC also notable for 40% stenosis to the left circumflex, 70% stenosis to the proximal RP LA, LVEF noted to be 35%. 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 Patient recently (09/2025)initiated on GDM T with Losartan, Jardiance and Coreg but ARNI/MRA deferred given SARAH on CKD during last admission. For history of drug- eluting stent patient currently on Plavix 75 mg daily and Aspirin 81mg daily. -Continue GDM T while inpatient -Continue triple therapy Assessment & Plan (10/21/2025 9:19 PM ICT BUSINESS DEVELOPMENT MANAGER): Patient with recent history NSTEMI noted present for 10/01/2025 status post PCI to the proximal RCA noted to have 80% stenosis with ROSA placed. LHC also notable for 40% stenosis to the left circumflex, 70% stenosis to the proximal RP LA, LVEF noted to be 35%. 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 Patient recently (09/2025)initiated on GDM T with Losartan, Jardianc and Coreg but ARNI/MRA deferred given SARAH on CKD during last admission. For history of drug- eluting stent patient currently on Plavix 75 mg daily and Aspirin 81mg daily. -Continue GDM T while inpatient -Consider Lasix 40 IV given concern for volume overload is etiology lower extremity edema -Continue triple therapy BPH (benign prostatic hyperplasia) 10/21/2025 Assessment & Plan (10/22/2025 7:15 AM ICT BUSINESS DEVELOPMENT MANAGER): Patient was continued on home Flomax 0.4mg Assessment & Plan (10/21/2025 9:19 PM ICT BUSINESS DEVELOPMENT MANAGER): Patient was continued on home Flomax 0.4mg Atrial flutter 10/21/2025 Assessment & Plan (10/22/2025 8:54 AM ICT BUSINESS DEVELOPMENT MANAGER): Patient with recent history NSTEMI noted present for 10/01/2025 status post PCI to the proximal RCA noted to have 80% stenosis with ROSA placed. LHC also notable for 40% stenosis to the left circumflex, 70% stenosis to the proximal RP LA, LVEF noted to be 35%. 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 Patient recently (09/2025)initiated on GDM T with Losartan, Jardiance and Coreg but ARNI/MRA deferred given SARAH on CKD during last admission. For history of drug- eluting stent patient currently on Plavix 75 mg daily and Aspirin 81mg daily. -Continue GDM T while inpatient -Continue triple therapy Assessment & Plan (10/21/2025 9:19 PM ICT BUSINESS DEVELOPMENT MANAGER): Patient with recent history NSTEMI noted present for 10/01/2025 status post PCI to the proximal RCA noted to have 80% stenosis with ROSA placed. LHC also notable for 40% stenosis to the left circumflex, 70% stenosis to the proximal RP LA, LVEF noted to be 35%. 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 Patient recently (09/2025)initiated on GDM T with Losartan, Jardianc and Coreg but ARNI/MRA deferred given SARAH on CKD during last admission. For history of drug- eluting stent patient currently on Plavix 75 mg daily and Aspirin 81mg daily. -Continue GDM T while inpatient -Consider Lasix 40 IV given concern for volume overload is etiology lower extremity edema -Continue triple therapy Lower extremity edema 10/20/2025 Assessment & Plan (10/22/2025 8:54 AM ICT BUSINESS DEVELOPMENT MANAGER): Patient presenting with acute on chronic lower extremity edema, erythema with history of lymphedema iso of missing recent appointment to lymphedema clinic and lack of access to home GDMT after recent diagnosis of HFrEF iso NSTEMI s/p PCI. Patient also has history chronic DVTs and non-occlusive PEs on indefinite Xarelto (reporting adherence) and history of recurrent cellulitis ( 12/2024 for LLE cellulitis ). Exam reassuring with stable vitals, lack of leukocytosis, and bilaterally LE swelling/erythema concerning for venous stasis dermatitis v.s pitting edema iso HFrEF v.s lymphedema. Patient follows with [facility] for history of postthrombotic syndrome with inflammation. -Plan to resume home GDMT: Jardiance 10mg and Coreg 25 BID -OT Lymphedema c/s -Will defer antibiotics given low concern for infection at this time. -Repeat TTE and LE USordered by ED, pending results Assessment & Plan (10/21/2025 9:19 PM ICT BUSINESS DEVELOPMENT MANAGER): Patient presenting with acute on chronic lower extremity edema, erythema with history of lymphedema iso of missing recent appointment to lymphedema clinic and lack of access to home GDMT after recent diagnosis of HFrEF iso NSTEMI s/p PCI. Patient also has history chronic DVTs and non-occlusive PEs on indefinite Xarelto (reporting adherence) and history of recurrent cellulitis ( 12/2024 for LLE cellulitis ). Exam reassuring with stable vitals, lack of leukocytosis, and bilaterally LE swelling/erythema concerning for venous stasis dermatitis v.s pitting edema iso HFrEF v.s lymphedema. -Plan to resume home GDMT: Jardiance 10mg and Coreg 25 BID -Lymphedema c/s -Will defer antibiotics given low concern for infection at this time. -Consider Lasix 40mg IV given lasix naive for LE edema -Repeat TTE and LE US Osteomyelitis of second toe of right foot 2024 Assessment & Plan (07/06/2025 8:21 AM CDT): I have explained the surgical risks and benefits with the patient and/or family today regarding this minor risk procedure(s). All questions were answered fully and no implied or written guarantees were offered. Informed surgical consent reviewed. Plan is for partial amputation right 2nd toe . The patient has failed conservative care which has included accommodative shoe/padding, pain medication, and recommendations and treatment from our office. Based upon this failure, the patient's desire to correct the deformity, prevent additional complications, and improve pain/function, it is felt that surgical intervention is the best option at this time. Decision was made by the patient after being presented with all possible treatment options. The procedure will be performed under MAC (monitored anesthetic care). Patient will go to PAT clinic for evaluation pre-operatively. The patient's active medication list was reviewed. I have requested the following modifications perioperatively: None. The patient agreed to follow and abide by my perioperative recommendations. Patient understands that if he does not follow these, that he is at risk for complications. Patient verbalized understanding. I reiterated again to the patient that not all surgeries are 100% successful and I cannot guarantee a good surgical result. The ramifications, risks, benefits, treatment alternatives, follow up, and compliance were were explained to the patient. The patient understood the risks and benefits of surgery, including, but not limited to bleeding, infection, nerve or muscle injury, need for reoperation, nonunion, malunion, and recurrence of deformity, and in an extreme situation loss of digit or limb. The patient is told that they may have recurrent or increased pain, recurrence of the issue, complications specific to the procedure, scar tissue, nerve related issues, and possible postoperative infection. The expected post-operative course was discussed in detail. We also discussed that it is possible that any hardware implanted during the surgery such as screws plates are pins may need to be removed postoperatively. This would be a separate surgical procedure. Imaging was reviewed and the planned surgery was discussed utilizing the patient's radiographic images. We have discussed expectations after surgical recovery is complete, including possible physical therapy, changes in shoewear and duration of swelling. Patient verbalized that they understood that not all surgery is 100% successful. 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 I am recommending a home exercise program to include pre weight-bearing stretch and also q.i.d. weight-bearing stretch. You may ice, rest, and elevate the feet when possible. Deep tissue massage to the plantar fascial origin 5-10 minutes per day. Use good supportive shoes when walking when possible. Await diabetic shoes. Purpura 06/07/2025 Overview (06/07/2025): -xarelto daily -red spots developed 3-4 days ago -significantly to right leg, smaller patches to left leg and right arm -no blistering, drainage, itching -mildy painful -denies cold symptoms, fever, trauma E consult to derm, update labs today. CKD (chronic kidney disease) 05/19/2025 Assessment & Plan (10/22/2025 7:15 AM ICT BUSINESS DEVELOPMENT MANAGER): Patient with history of CKD with SCr baseline of 1.5-2 from hospitalizations in 2024, likely CKD 3a. SCr on admission of 1.7. -Daily BMP, renally dose medications, avoid nephrotoxic agents Assessment & Plan (10/21/2025 9:19 PM ICT BUSINESS DEVELOPMENT MANAGER): Patient with history of CKD with SCr baseline of 1.5-2 from hospitalizations in 2024, likely CKD 3a. SCr on admission of 1.7. -Daily BMP, renally dose medications, avoid nephrotoxic agents Assessment & Plan (05/26/2025 12:07 PM CDT): With baseline 1.5-2, presenting with Cr 2.2 on admission. CKD thought to be in setting of longstanding DM. SARAH may be in setting of decreased intake, low concern for post-renal etiology given without urinary retention. Follows with CKD clinic. Home regimen losartan, jardiance. Cr back to baseline BP sill not at target, on Amlodipine 10 and losartan 100 mg, will add home coreg - ctm, avoid nephrotoxic agents Assessment & Plan (05/25/2025 2:22 PM CDT): With baseline 1.5-2, presenting with Cr 2.2 on admission. CKD thought to be in setting of longstanding DM. SARAH may be in setting of decreased intake, low concern for post-renal etiology given without urinary retention. Follows with CKD clinic. Home regimen losartan, jardiance. Cr back to baseline BP sill not at target, will continue Amlodipine, will increase losartan from 50 mg-- 100 mg - ctm, avoid nephrotoxic agents Assessment & Plan (05/24/2025 2:13 PM CDT): With baseline 1.5-2, presenting with Cr 2.2 on admission. CKD thought to be in setting of longstanding DM. SARAH may be in setting of decreased intake, low concern for post-renal etiology given without urinary retention. Follows with CKD clinic. Home regimen losartan, jardiance. Cr back to baseline BP sill not at target, will continue Amlodipine, will increase losartan from 50 mg-- 100 mg - ctm, avoid nephrotoxic agents Assessment & Plan (05/23/2025 4:32 PM CDT): With baseline 1.5-2, presenting with Cr 2.2 on admission. CKD thought to be in setting of longstanding DM. SARAH may be in setting of decreased intake, low concern for post-renal etiology given without urinary retention. Follows with CKD clinic. Home regimen losartan, jardiance. Cr back to baseline BP uncontrolled today likely secondary to holding Losartan in the context of SARAH - will resume losartan, jardiance, will add amlodipine 10 mg - ctm, avoid nephrotoxic agents Assessment & Plan (05/22/2025 7:58 AM CDT): With baseline 1.5-2, presenting with Cr 2.2 on admission. CKD thought to be in setting of longstanding DM. SARAH may be in setting of decreased intake, low concern for post-renal etiology given without urinary retention. Follows with CKD clinic. Home regimen losartan, jardiance. - ctm, avoid nephrotoxic agents - Hold losartan, jardiance Assessment & Plan (05/21/2025 9:35 AM CDT): With baseline 1.5-2, presenting with Cr 2.2 on admission. CKD thought to be in setting of longstanding DM. SARAH may be in setting of decreased intake, low concern for post-renal etiology given without urinary retention. Follows with CKD clinic. Home regimen losartan, jardiance. - ctm, avoid nephrotoxic agents - Hold losartan, jardiance Assessment & Plan (05/20/2025 9:57 AM CDT): With baseline 1.5-2, presenting with Cr 2.2 on admission. CKD thought to be in setting of longstanding DM. SARAH may be in setting of decreased intake, low concern for post-renal etiology given without urinary retention. Follows with CKD clinic. Home regimen losartan, jardiance. - ctm, avoid nephrotoxic agents - Hold losartan, jardiance Assessment & Plan (05/19/2025 10:20 AM CDT): With baseline 1.5-2, presenting with Cr 2.2 on admission. CKD thought to be in setting of longstanding DM. SARAH may be in setting of decreased intake, low concern for post-renal etiology given without urinary retention. Follows with CKD clinic. Home regimen losartan, jardiance. - 1L LR - ctm, avoid nephrotoxic agents - hold losartan, jardiance CAD (coronary artery disease) 05/19/2025 Assessment & Plan (10/22/2025 8:54 AM ICT BUSINESS DEVELOPMENT MANAGER): Patient with recent history NSTEMI noted present for 10/01/2025 status post PCI to the proximal RCA noted to have 80% stenosis with ROSA placed. LHC also notable for 40% stenosis to the left circumflex, 70% stenosis to the proximal RP LA, LVEF noted to be 35%. 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 Patient recently (09/2025)initiated on GDM T with Losartan, Jardiance and Coreg but ARNI/MRA deferred given SARAH on CKD during last admission. For history of drug- eluting stent patient currently on Plavix 75 mg daily and Aspirin 81mg daily. -Continue GDM T while inpatient -Continue triple therapy Assessment & Plan (10/21/2025 9:19 PM ICT BUSINESS DEVELOPMENT MANAGER): Patient with recent history NSTEMI noted present for 10/01/2025 status post PCI to the proximal RCA noted to have 80% stenosis with ROSA placed. LHC also notable for 40% stenosis to the left circumflex, 70% stenosis to the proximal RP LA, LVEF noted to be 35%. 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 Patient recently (09/2025)initiated on GDM T with Losartan, Jardianc and Coreg but ARNI/MRA deferred given SARAH on CKD during last admission. For history of drug- eluting stent patient currently on Plavix 75 mg daily and Aspirin 81mg daily. -Continue GDM T while inpatient -Consider Lasix 40 IV given concern for volume overload is etiology lower extremity edema -Continue triple therapy Assessment & Plan (05/26/2025 12:07 PM CDT): Cont home ASA, statin Assessment & Plan (05/25/2025 2:22 PM CDT): Cont home ASA, statin Assessment & Plan (05/24/2025 2:13 PM CDT): Cont home ASA, statin Assessment & Plan (05/23/2025 4:32 PM CDT): Cont home ASA, statin Assessment & Plan (05/22/2025 7:58 AM CDT): Cont home ASA, statin Assessment & Plan (05/21/2025 9:32 AM CDT): Cont home ASA, statin Assessment & Plan (05/20/2025 9:57 AM CDT): Cont home ASA, statin Assessment & Plan (05/19/2025 10:20 AM CDT): Cont home ASA, statin Anemia 05/19/2025 Assessment & Plan (10/22/2025 7:15 AM ICT BUSINESS DEVELOPMENT MANAGER): Patient with history of anemia and follows with [facility]. Etiology of chronic normocytic anemia believed to be iso nutritional deficiencies (Folate, B12, Iron). Hgb as outpatient with baseline of 9-10. -Continue home B12, Folate supplementation. Assessment & Plan (05/26/2025 12:07 PM CDT): Likely iso ACD. - ctm Assessment & Plan (05/25/2025 3:35 PM CDT): Likely iso ACD. - ctm Assessment & Plan (05/24/2025 2:13 PM CDT): Hgb 9.6 at baseline. Likely iso ACD. - ctm Assessment & Plan (05/23/2025 4:32 PM CDT): Hgb 9.6 at baseline. Likely iso ACD. - ctm Assessment & Plan (05/22/2025 7:58 AM CDT): Hgb 9.6 at baseline. Likely iso ACD. - ctm Assessment & Plan (05/21/2025 9:32 AM CDT): Hgb 9.6 at baseline. Likely iso ACD. - ctm Assessment & Plan (05/20/2025 9:57 AM CDT): Hgb 9.6 at baseline. Likely iso ACD. - ctm Assessment & Plan (05/19/2025 10:20 AM CDT): Hgb 9.6 at baseline. Likely iso ACD. 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 Assessment & Plan (08/20/2025 5:01 PM CDT): Surgically resolved. All sutures removed today without incident. Okay to bathe or shower starting tomorrow. Recommend he resume use of diabetic shoes and multi density pressure relief inserts. This she would be worn at all times when walking or standing including while at home. Monitor for any new wound development. I have recommended that he return for follow up in 8-10 weeks for at-risk foot care. Assessment & Plan (07/28/2025 8:52 PM CDT): Sutures left intact x2 more weeks. Dry sterile dressing reapplied right 2nd toe. May keep this dressing intact as long as it remains dry and stable. If it becomes wet or soiled must be changed. Continue surgical shoe when standing or walking. Limit activity necessities only. Monitor for any complications. Assessment & Plan (07/06/2025 8:23 AM CDT): No debridement indicated today. A wound culture was obtained right 2nd toe. This was sent for routine aerobic and anaerobic culture. I sent in a prescription for doxycycline 100 mg p.o. b.i.d. times 2 weeks. I will adjust the prescription based upon the wound cultures. Continue daily care of the right foot as directed. I placed a silver alginate and gauze dressing to the site today. Assessment & Plan (06/19/2025 2:47 AM CDT): Sutures removed right great toe amputation site. No debridement indicated at the right 2nd toe ulcer site. Daily care instructions were given for this site. I dressed the site with silver alginate and gauze. Monitor closely for any exacerbation. He might need hammertoe correction on the right foot to prevent further breakdown of skin at this site. Assessment & Plan (05/26/2025 12:07 PM CDT): With known OM of left distal 2nd phalanx who presents with purulent drainage of left toe ulcer. On exam with ulceration of 2nd left toe and great right toe present without significant drainage, with surrounding erythema, no pain to palpation due to neuropathy. XR bilateral feet with possible OM of same left toe and possible OM of distal 2nd phalanx. With elevated ESR/CRP. He follows with Dr. Smith of podiatry s/p Amputation of left 2nd toe on 05/22 , NGTD - Discussed with ID, considering source removal and IV abx x week, can be discharged on oral Doxycycline x 7 days - Pending bone pathology results, NGTD, will follow in clinic with podiatry - Pain control Assessment & Plan (05/25/2025 3:35 PM CDT): With known OM of left distal 2nd phalanx who presents with purulent drainage of left toe ulcer. On exam with ulceration of 2nd left toe and great right toe present without significant drainage, with surrounding erythema, no pain to palpation due to neuropathy. XR bilateral feet with possible OM of same left toe and possible OM of distal 2nd phalanx. With elevated ESR/CRP. He follows with Dr. Smith of podiatry s/p Amputation of left 2nd toe on 07/14 - Vancomycin Bilevel, will administer dose once today, will repeat level in 24 hours post adminstration - will continue cefepime and flagyl - will follow cultures and pathology, NGTD - Pain control Assessment & Plan (05/25/2025 11:34 AM CDT): One day status post right hallux amputation. Maceration is noted at the incisional site. Dry sterile gauze dressing Kerlix and Jeyson bandage reapplied. I have discussed the need to limit weight-bearing on the right foot and only use the surgical shoe when standing or walking. If the dressing remains dry it can stay intact for up to a week. Would like to see him for follow up in approximately 7-10 days post hospital discharge Assessment & Plan (05/24/2025 2:13 PM CDT): With known OM of left distal 2nd phalanx who presents with purulent drainage of left toe ulcer. On exam with ulceration of 2nd left toe and great right toe present without significant drainage, with surrounding erythema, no pain to palpation due to neuropathy. XR bilateral feet with possible OM of same left toe and possible OM of distal 2nd phalanx. With elevated ESR/CRP. He follows with Dr. Smith of podiatry s/p Amputation of left 2nd toe on 05/22 - Vancomycin level supra therapeutic, will hold and repeat level - Reporting Vomiting to flagyl and refusing PO pills, switched flagyl to IV - Continues cefepime - will follow cultures and pathology, NGTD - Pain control Assessment & Plan (05/23/2025 4:32 PM CDT): With known OM of left distal 2nd phalanx who presents with purulent drainage of left toe ulcer. On exam with ulceration of 2nd left toe and great right toe present without significant drainage, with surrounding erythema, no pain to palpation due to neuropathy. XR bilateral feet with possible OM of same left toe and possible OM of distal 2nd phalanx. With elevated ESR/CRP. He follows with Dr. Smith of podiatry s/p Amputation of left 2nd toe on 05/22 - will cont vanc/cefe/flagyl - will follow cultures and pathology, NGTD - Pain control Assessment & Plan (05/22/2025 7:58 AM CDT): With known OM of left distal 2nd phalanx who presents with purulent drainage of left toe ulcer. On exam with ulceration of 2nd left toe and great right toe present without significant drainage, with surrounding erythema, no pain to palpation due to neuropathy. XR bilateral feet with possible OM of same left toe and possible OM of distal 2nd phalanx. With elevated ESR/CRP. He follows with Dr. Smith of podiatry (is currently scheduled to have amputation 06/05 of multiple toes), who recommended admission for IV antibiotics and possible expedited amputation. - cont vanc/cefe/flagyl - podiatry c/s, appreciate recs - MRI Rt Foot wo cont revealed small focus of osteomyelitis involving the medial aspect of the head of the proximal phalanx of the right great toe. - Tentatively planning surgery (partial amputation left 2nd toe) on 05/[address] Weir Assessment & Plan (05/21/2025 9:32 AM CDT): With known OM of left distal 2nd phalanx who presents with purulent drainage of left toe ulcer. On exam with ulceration of 2nd left toe and great right toe present without significant drainage, with surrounding erythema, no pain to palpation due to neuropathy. XR bilateral feet with possible OM of same left toe and possible OM of distal 2nd phalanx. With elevated ESR/CRP. He follows with Dr. Smith of podiatry (is currently scheduled to have amputation 06/05 of multiple toes), who recommended admission for IV antibiotics and possible expedited amputation. - cont vanc/cefe/flagyl - podiatry c/s, appreciate recs - MRI wo contrast of right foot (Pending) - Tentatively planning surgery on 05/[address] Weir Assessment & Plan (05/20/2025 9:57 AM CDT): With known OM of left distal 2nd phalanx who presents with purulent drainage of left toe ulcer. On exam with ulceration of 2nd left toe and great right toe present without significant drainage, with surrounding erythema, no pain to palpation due to neuropathy. XR bilateral feet with possible OM of same left toe and possible OM of distal 2nd phalanx. With elevated ESR/CRP. He follows with Dr. Smith of podiatry (is currently scheduled to have amputation 06/05 of multiple toes), who recommended admission for IV antibiotics and possible expedited amputation. - cont vanc/cefe/flagyl - podiatry c/s, appreciate recs - MRI wo contrast of right foot (Pending) - Tentatively planning surgery on 05/[address] Weir Assessment & Plan (05/19/2025 10:20 AM CDT): With known OM of left distal 2nd phalanx who presents with purulent drainage of left toe ulcer. On exam with ulceration of 2nd left toe and great right toe present without significant drainage, with surrounding erythema, no pain to palpation due to neuropathy. XR bilateral feet with possible OM of same left toe and possible OM of distal 2nd phalanx. With elevated ESR/CRP. He follows with Dr. Smith of podiatry (is currently scheduled to have amputation 06/05 of multiple toes), who recommended admission for IV antibiotics and possible expedited amputation. - s/p vanc/cefe - cont vanc/cefe/flagyl - podiatry c/s, appreciate recs - MRI wo contrast of right foot - tentatively planning surgery on 05/22 Assessment & Plan (05/15/2025 11:03 AM CDT): Written consent was obtained for ulcer debridement right great toe. Using 15 blade I performed excisional debridement of nonviable skin margin, fibrin slough and biofilm from the wound base. Bleeding was controlled with direct pressure. Silver alginate and gauze dressing reapplied. Instructions were given for daily care. Wear offloading shoes at all times when standing or walking. Hallux limitus of right foot 05/15/2025 Assessment & Plan (05/15/2025 11:06 AM CDT): I discussed condition and treatment options today with the patient. He might eventually need total implant arthroplasty of the 1st metatarsophalangeal joint to help improve range of motion. Due to the loss of extension it is creating pressure at the distal medial tip of the right hallux which is the cause of his ulcer. We will proceed with left 2nd toe surgery 1st before any elective procedures for the right foot. Pain in left lower leg 04/25/2025 Overview (04/25/2025): -previously referred to PT and lymphedema clinic Provided phone number to call and schedule. Screening for diabetes mellitus 04/25/2025 Weight loss 04/19/2025 Nausea and vomiting 04/19/2025 Overview (04/25/2025): -lost 20 pounds -eating once every 2 days -low appetite -loose stool, no blood or dark stool -vomiting every other day -zofran is helpful Ok to continue zofran prn, encouraged bland, small meals, egd ordered. Lymphedema 04/14/2025 Assessment & Plan (10/22/2025 8:54 AM ICT BUSINESS DEVELOPMENT MANAGER): Patient presenting with acute on chronic lower extremity edema, erythema with history of lymphedema iso of missing recent appointment to lymphedema clinic and lack of access to home GDMT after recent diagnosis of HFrEF iso NSTEMI s/p PCI. Patient also has history chronic DVTs and non-occlusive PEs on indefinite Xarelto (reporting adherence) and history of recurrent cellulitis ( 12/2024 for LLE cellulitis ). Exam reassuring with stable vitals, lack of leukocytosis, and bilaterally LE swelling/erythema concerning for venous stasis dermatitis v.s pitting edema iso HFrEF v.s lymphedema. Patient follows with [facility] for history of postthrombotic syndrome with inflammation. -Plan to resume home GDMT: Jardiance 10mg and Coreg 25 BID -OT Lymphedema c/s -Will defer antibiotics given low concern for infection at this time. -Repeat TTE and LE USordered by ED, pending results Assessment & Plan (10/21/2025 9:19 PM ICT BUSINESS DEVELOPMENT MANAGER): Patient presenting with acute on chronic lower extremity edema, erythema with history of lymphedema iso of missing recent appointment to lymphedema clinic and lack of access to home GDMT after recent diagnosis of HFrEF iso NSTEMI s/p PCI. Patient also has history chronic DVTs and non-occlusive PEs on indefinite Xarelto (reporting adherence) and history of recurrent cellulitis ( 12/2024 for LLE cellulitis ). Exam reassuring with stable vitals, lack of leukocytosis, and bilaterally LE swelling/erythema concerning for venous stasis dermatitis v.s pitting edema iso HFrEF v.s lymphedema. -Plan to resume home GDMT: Jardiance 10mg and Coreg 25 BID -Lymphedema c/s -Will defer antibiotics given low concern for infection at this time. -Consider Lasix 40mg IV given lasix naive for LE edema -Repeat TTE and LE US Chest pain, unspecified type 12/01/2024 Adjustment disorder 11/24/2024 Blood in urine 11/24/2024 Abdominal pain 11/24/2024 Cough 11/24/2024 Depressive disorder 11/24/2024 Diabetes mellitus 11/24/2024 Assessment & Plan (05/21/2025 9:32 AM CDT): A1c 6.3 7/10. Home regimen includes jardiance. Not currently taking metformin. - hold jardiance iso SARAH - LDSSI Assessment & Plan (05/20/2025 9:57 AM CDT): A1c 6.3 7/10. Home regimen includes jardiance. Not currently taking metformin. - hold jardiance iso SARAH - LDSSI Hyperglycemia 11/24/2024 Disorder of bursae of shoulder region 11/24/2024 Disorder of rotator cuff 11/24/2024 Eczema 11/24/2024 Hypercalcemia 11/24/2024 Hypercholesterolemia 11/24/2024 Hyperlipidemia 11/24/2024 Assessment & Plan (10/22/2025 7:15 AM ICT BUSINESS DEVELOPMENT MANAGER): Patient was continued on home regimen of Atorvastatin 40mg. Assessment & Plan (10/21/2025 9:19 PM ICT BUSINESS DEVELOPMENT MANAGER): Patient was continued on home regimen of Atorvastatin 40mg. Hypertriglyceridemia 11/24/2024 Kidney stone 11/24/2024 Low back pain 11/24/2024 Lumbar radiculopathy 11/24/2024 Lumbar spondylosis 11/24/2024 Muscle pain 11/24/2024 Neck pain 11/24/2024 Nonspecific syndrome suggestive of viral illness 11/24/2024 Bronchitis 11/24/2024 Upper respiratory infection 11/24/2024 Shoulder joint pain 11/24/2024 Spinal stenosis of lumbar region 11/24/2024 Type 2 diabetes mellitus without complication Overview (01/12/2025): -previously on metformin 500mg daily -cardiology started jardiance while inpatient -he thought he was supposed to stop metformin He will restart metformin. Assessment & Plan (05/26/2025 12:07 PM CDT): A1c 6.3 7. Home regimen includes jardiance. Not currently taking metformin. - will continue Jardiance, SARAH resolved - LDSSI Assessment & Plan (05/25/2025 2:22 PM CDT): A1c 6.3 7. Home regimen includes jardiance. Not currently taking metformin. - will continue Jardiance, SARAH resolved - LDSSI Assessment & Plan (05/24/2025 2:13 PM CDT): A1c 6.3 7. Home regimen includes jardiance. Not currently taking metformin. - will continue Jardiance, SARAH resolved - LDSSI Assessment & Plan (05/23/2025 4:32 PM CDT): A1c 6.3 710. Home regimen includes jardiance. Not currently taking metformin. - will resume Jardiance, SARAH resolved - LDSSI Assessment & Plan (05/22/2025 7:58 AM CDT): A1c 6.3 710. Home regimen includes jardiance. Not currently taking metformin. - Hold jardiance iso SARAH - LDSSI Assessment & Plan (05/21/2025 9:32 AM CDT): A1c 6.3 7/10. Home regimen includes jardiance. Not currently taking metformin. - Hold jardiance iso SARAH - LDSSI Assessment & Plan (05/20/2025 9:57 AM CDT): A1c 6.3 05/18. Home regimen includes jardiance. Not currently taking metformin. - Hold jardiance iso SARAH - LDSSI Assessment & Plan (05/19/2025 10:20 AM CDT): A1c 6.3 05/18. Home regimen includes jardiance. Not currently taking metformin. - hold jardiance iso SARAH - LDSSI Vitamin D deficiency 11/24/2024 Wheezing 11/24/2024 Anxiety 11/24/2024 Gastroesophageal reflux disease 11/24/2024 Hypertensive disorder 11/24/2024 Cyst of skin 11/24/2024 Pruritic rash 11/24/2024 Skin lesion 11/24/2024 Ulcer of toe of right foot, with necrosis of bon e 07/25/2024 Diabetic polyneuropathy asso ciated with type 2 diabetes mellitus 07/25/2024 Cellulitis of right lower extremity 07/21/2024 Overview (04/25/2025): -daily penicillin, started with ID while inpatient, he has not followed up with ID but has appointment later this month -continues to have lower leg pain despite gabapentin, zanaflex, tylenol Discussed we will no longer be filling oxy, he needs to follow up with hematology and ID. Will also place pain management referral. Assessment & Plan (07/26/2024 1:13 PM CDT): Vanc/cefe initiated 07/20 as per OM treatment. Improving cellulitis, narrowed antibiotics to Unasyn based on superficial wound cultures (+) MSSA, S dysgalactiae. Immunocompromised iso diabetes. Patient feeling well today and feels appearance is improving. Plan: -Discharge on Augmentin 875mg BID x 7 days (to complete 14 day abx course total) Osteomyelitis R 1st toe 07/21/2024 Overview (08/02/2024): -partial first toe amputation 07/25 -d/c with 14 day course augmentin, reports compliance -last night applied betadine and re-wrapped - would like me to look at his toe to make sure it is not infected -treating pain with oxy from discharge but continues to have pain No sign of infection on exam today, toe re-dressed with gauze, gauze wrap and jeyson wrap. Will provide short 5 day course of oxy for pain, reviewed side effects, any further pain management will need to come from podiatry after his appointment next week. He was instructed to take tylenol with or in between doses of oxycodone. Assessment & Plan (07/26/2024 12:03 PM CDT): The patient is a 43 y.o. 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 He was following with [facility] wound care and had a ulcer wound swab done on 07/12 that grew MSSA and Strep dysgalactiae and was prescribed doxycycline but has not started. In the ED he was afebrile and HDS. Labs without leukocytosis, ESR 45 and CRP 277. Blood cultures NGTD. RLE doppler found age indeterminate DVT. He was admitted for concern of RLE cellulitis and was started on empiric vanc and cefepime. XR R foot showed soft tissue swelling in distal phalanx of great toe with fragmentation/destruction distal phalanx compatible with possible OM. He was seen by podiatry and had bedside debridement with wound cultures that are growing MSSA and Strep dysgalactiae. MRI R foot showed acute OM of distal phalanx R great toe. S/p amputation of the distal phalanx, residual proximal phalanx not c/f infection. Plan to treat for cellulitis as bone infection has been amputated. Recommendations: - stop unasyn. - ok to discharge on amoxicillin-clavulanate 875/125mg PO q12h x1 week to complete treatment for cellulitis. No ID follow up needed. Assessment & Plan (07/26/2024 1:16 PM CDT): Diabetic foot ulcer R 1st toe, plain films w bony destruction, MRI confirms OM changes, wound cultures mssa/s dysgalactiae Checking OSWALDO low suspicion sig large vessel disease S/p partial 1st ray amputation with Podiatry 07/25/24. Cultures and pathology samples obtained, pending final result. Has clean/dry dressing+JEYSON wrap in place. Plan: -Discharge antibiotics as elsewhere -Podiatry post-op instructions: 1) no longer than 5 minutes on right foot 4-5 times a day wearing post op shoe, heel focused, assistive devices as needed such as hand walker 2) cleared to restart AC -Follow up with outpatient IM -Patient educated that improved DM control will improve wound healing and decrease complications related to diabetic foot ulcers Elevated alkaline phosphatase level 06/07/2024 Overview (06/07/2024): Repeat today, consider US is elevated. Swelling of right lower extremity 06/07/2024 Overview (06/07/2024): -known DVT to right extremity -reports compliance to eliquis 5mg BID -increasing swelling and pain to entire right leg for about a week -denies CP, SOB Stat doppler ordered, reviewed red flag signs. Personal history of venous thrombosis and emboli sm 06/07/2024 Overview (07/24/2025): -follows with hematology -Xarelto daily Open wound of toe 06/07/2024 Overview (06/07/2024): -poor healing wound to second right toe, he hit it on the dresser -open wound to right great toe, this is a new wound -increasing redness to first two toes Bactrim ordered, reviewed side effects, concern for possible cellulits. He was previously seeing the wound team for sacral wound, encouraged to reach out but also placed referral to [facility] for non healing foot wounds. Skin rash 04/07/2024 Overview (04/07/2024): -breakout on chest started 2 days ago -he was using some commercial or institutional cleaner -started as red bumps that he itched and now are scabbing over -very itching, no pain or burning -he did apply some benadryl along with oral benadryl and it has been improving Continue with benadryl cream, he does have some triamcinolone at home, I encouraged him to use. S/P MVR (mitral valve repair) 04/07/2024 Overview (04/07/2024): -10/01 presented to [facility], respiratory failure, L pleural effusion, chest tube -transferred to [facility] developed pneumonia, trach and peg placed, found to have MR with MV perforation, concerning for endocarditis -transferred to [facility] 11/18/2023 -OR 11/25/2023 for MVR -12/02/2023 fever with positive blood cultures, TWAN, also found to have UPJ obstruction and right renal stone -12/14 stent placed with urology -12/20/2023, redo MVR -discharge to [place] 01/01/2024 -cardiology prescribing eliquis, metoprolol, aspirin, he is no longer taking atorvastatin, reports he was told to discontinue (I do not see this in chart) Encouraged to continue with cardiology and reach out as far as atorvastatin. Assessment & Plan (10/22/2025 8:54 AM ICT BUSINESS DEVELOPMENT MANAGER): Patient with recent history NSTEMI noted present for 10/01/2025 status post PCI to the proximal RCA noted to have 80% stenosis with ROSA placed. LHC also notable for 40% stenosis to the left circumflex, 70% stenosis to the proximal RP LA, LVEF noted to be 35%. 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 Patient recently (09/2025)initiated on GDM T with Losartan, Jardiance and Coreg but ARNI/MRA deferred given SARAH on CKD during last admission. For history of drug- eluting stent patient currently on Plavix 75 mg daily and Aspirin 81mg daily. -Continue GDM T while inpatient -Continue triple therapy Assessment & Plan (10/21/2025 9:19 PM ICT BUSINESS DEVELOPMENT MANAGER): Patient with recent history NSTEMI noted present for 10/01/2025 status post PCI to the proximal RCA noted to have 80% stenosis with ROAS placed. LHC also notable for 40% stenosis to the left circumflex, 70% stenosis to the proximal RP LA, LVEF noted to be 35%. 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 Patient recently (09/2025)initiated on GDM T with Losartan, Jardianc and Coreg but ARNI/MRA deferred given SARAH on CKD during last admission. For history of drug- eluting stent patient currently on Plavix 75 mg daily and Aspirin 81mg daily. -Continue GDM T while inpatient -Consider Lasix 40 IV given concern for volume overload is etiology lower extremity edema -Continue triple therapy Gastroesophageal reflux disease without esophagi tis 04/07/2024 Overview (04/07/2024): -well controlled with pantoprazole daily Assessment & Plan (10/22/2025 7:15 AM ICT BUSINESS DEVELOPMENT MANAGER): Patient was continued on home Pantoprazole 40mg daily. Assessment & Plan (10/21/2025 9:19 PM ICT BUSINESS DEVELOPMENT MANAGER): Patient was continued on home Pantoprazole 40mg daily. Assessment & Plan (07/21/2024 3:35 PM CDT): Continue PPI Anxiety 04/07/2024 Overview (07/24/2025): -sertraline 200mg daily -needs refill today -overall well controlled -a lot going on, still admitted, he recently had another partial left toe amputation Refilled. Assessment & Plan (10/22/2025 7:15 AM ICT BUSINESS DEVELOPMENT MANAGER): Patient was continued on home Sertraline 100mg daily. Assessment & Plan (10/21/2025 9:19 PM ICT BUSINESS DEVELOPMENT MANAGER): Patient was continued on home Sertraline 100mg daily. Assessment & Plan (07/21/2024 4:18 PM CDT): Chronic issues since prolonged hospital stay earlier this year. Patient due to follow up with Psychiatry outpatient. He reports frequent panic attacks that occur randomly, with no clear trigger. Patient requesting remain at bedside during admission, however he was informed that is against policy while inpatient. - continue zoloft 150 mg daily and buspar 15 mg BID - patient reports hydroxyzine prn did not help with symptoms outpatient - prn ativan 0.5 mg TID PRN - continue ambien 5 mg qhs for insomnia Back spasm 04/07/2024 Overview (04/07/2024): -ongoing back spasms -reports he has seem multiple orthopedics and was told surgery is not an option and to see primary provider -robaxin does help the pain Pressure injury of skin of sacral region 024 Deep incisional surgical site infection 01/08/20 24 Soft tissue infection 01/08/2024 Contact dermatitis 12/30/2023 Assessment & Plan (12/30/2023 3:44 PM ICT BUSINESS DEVELOPMENT MANAGER): Developed on posterior neck on 12/27 -Continue Triamcinolone cream GI bleed 12/16/2023 Assessment & Plan (12/25/2023 11:19 AM ICT BUSINESS DEVELOPMENT MANAGER): EGD on 12/15: bleeding AVM in stomach, clipped Hgb dropped to 5.4 12/15, 2 units of PRBC, repeat hgb 7.3 2 FFP and one PRBC 12/16 with stable Hgb GI EGD 12/18: - Stool in the sigmoid colon. No evidence of bleeding. Upper: - Normal esophagus. Normal stomach. gastric tube was found in the stomach. Duodenal Clips. The examined portion of the jejunum was normal. Tattooed.CBC daily Pantoprazole bid GI following, appreciate recs Daily CBC, H/H stable Diarrhea 12/13/2023 Assessment & Plan (07/26/2024 1:15 PM CDT): Presume abx associated acute diarrhea, cdiff gdh+/toxin- unlikely to represent cdi Started loperamide yesterday. No diarrhea. Solid BM this AM. Assessment & Plan (12/18/2023 1:25 PM ICT BUSINESS DEVELOPMENT MANAGER): Bowel prep last night with FCD inserted, now pulled post EGD -12/13 Cdiff and VRE-negative -Imodium as needed for diarrhea Ureteropelvic junction (UPJ) obstruction 024 Overview (03/18/2024): 03/18/24: NC. UPJO. Obstruction identified during prolonged hospitalization for multi-organism sepsis, infected valvular heart disease, and DVT requiring anticoagulation. CT AP w/ (12/09/23) - right hydronephrosis, non-obstructing nephrolithiasis. NM renogram (12/11/23) - L: 61%; R: 39%. Underwent cystoscopy, retrogrades, and stent (12/14/23) [per note, retrograde consistent w/ UPJO]. Undergoing PT/OT. No active antimicrobial mgmt. Assessment & Plan (12/25/2023 11:13 AM ICT BUSINESS DEVELOPMENT MANAGER): Urology consulted 12/11 to renal calculus and UPJ obstruction Tenorio remains in place ID concerned that fungemia could be caused by UPJ and renal calculus -12/14 S/P cystoscopy with right urethral stent placement. Keep right ureteral stent for up to 6-10 months before it will need to be exchanged. Per Urology, he can have a right pyeloplasty if possible to definitively fix the right ureter Fungemia 12/04/2023 Assessment & Plan (12/21/2023 4:05 PM ICT BUSINESS DEVELOPMENT MANAGER): Patient fevered on 12/02 with blood cultures positive 2/2 for alex glabrata. He was given his first dose of micafungin at 0351 on 12/04 and repeat blood culture NG on 12/04 at 0410. This rapid clearance is not consistent with alex endocarditis. TTE on 12/08 poor quality but not findings of vegetation. TWAN on 12/09 indicated severe paravalvular leak on the mechanical valve. No vegetations seen. Per primary team, planning on redo. Regarding source for candidemia, patient with yeast noted on multiple UAs. Micafungin has poor urine concentration and is not ideal for treating candiduria. However, patient with elevated QTc and there is an interaction between Warfarin and fluconazole, thus it was recommended to increase micafungin to improve urinary coverage. Imaging on 12/09 indicates New right renal cortical medullary differentiation, UPJ obstruction and nonobstructing right renal stone. Patient reports he has required surgical intervention of his stones in the past and new about the stone in question. In light of persistent yeast in his UA, it is reasonable to assume that the retained stone and possibly urine are sources of infection. Patient went to the OR on 12/14 with urology surgery for right ureteral stent placement. Clarified with urology that non-obstructing stone remains in place. Planning to address possible pyeloplasty down the road. Yeast in the urine is the presumed source of patient's candidemia. Given the obstruction has been alleviated with the stent placement, we can assume source control has been achieved. We are recommending 4 weeks of micafungin from stent placement. Plan: -continue Micafungin to 200mg IV Q24H for candidemia treatment and alex UTI and candidemia -Plan on 4 weeks of doug from stent -Appreciate recommendations. Assessment & Plan (12/26/2023 12:45 PM ICT BUSINESS DEVELOPMENT MANAGER): Continue Micafungin TWAN reviewed by Dr Giron, with perivalvular leak, possible caused by infection S/p redo MVR Urology c/s- concerns that renal stone may be source of infection- signed off, continue IV abx per ID team Acute post-operative pain 11/29/2023 Assessment & Plan (12/30/2023 3:40 PM ICT BUSINESS DEVELOPMENT MANAGER): To be expected following cardiac surgery Continue PRN Oxycodone Continue Gabapentin, Robaxin Continue Lidocaine patch Utilize splinting technique Acute blood loss anemia 11/29/2023 Assessment & Plan (12/30/2023 3:40 PM ICT BUSINESS DEVELOPMENT MANAGER): Expected finding post op brett MVR and GIB prior to the 2nd MV surgery - GI consutled 2/4 and AVM clips to stomach preformed - now stable H/H -Daily CBC, hgb 7.7 last night -Consider transfusion if hgb <7 or if hemodynamically unstable -Repeat EGD 12/18 without evidence of bleeding-continue bid PPI 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 Assessment & Plan (12/24/2023 3:40 PM ICT BUSINESS DEVELOPMENT MANAGER): Patient is a 42 y.o. male with PMH significant for uncontrolled T2DM c/b foot ulcer, PSA (tobacco, alcohol, and MJ no IVDU), multiple thormbi (bilateral LE DVTs, non-occlusive PE), atrial flutter, hypertension, empyema of left pleural space, and COPD who was originally admitted to OSH for AHRF ISO pneumonia and was transferred to [facility] for surgical evaluation of MR with MV perforation and LA mass. BCx were not positive however given extent of valve destruction non-infectious endocarditis was unlikely by cardiology opinion. 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 No pericardial effusion. Numerous blood cultures (09/28, 10/04, 10/09, 11/07, 11/13, 11/14) without growth on aerobic/anaerobic cultures. No IVDU, no exposure to livestock (though does have 2 pet dogs at home) or international travel. He has also been adentulous for 15-20 years s/p dental extraction for oral abscesses. Mechanical mitral valve placed 11/25. In OR his [place] valve had a large perforation in posterior leaflet without active vegetation. Valve tissue was sent for cultures and PCR sequencing. He had been on various abx ~1mo at time of valve replacement at OSH (had PNA). He had erratic vanc troughs unable to achieve predictable stable levels over several weeks of treatment prior to surgery. ID provided final recommendations on 11/27 for daptomycin and ceftriaxone for 6 weeks with an end date of 01/05. Valve culture finalized with NG, tropheryma whipplei PCR negative, and 16s positive for streptococcus agalactiae (GBS) Patient went for EGD on 12/15 that indicated bleeding of duodenal AVM. Clips utilized and bleeding controlled. He underwent Colonoscopy and EGD on 12/18 with no additional source of bleeding noted. Patient was having sternal incision drainage, antibiotics broadened to cefepime and dapto and culture and found to be positive for alex albicans. He went to the OR on 12/20 with CTS and underwent redo sternotomy and MVR. Sternal cultures obtained but no valve culture obtained and operative report comments on no findings of infection.Valve sent for pathology.On review of operative report, purulent fluid noted and was sent for culture. Confirmed with surgical team that no c/f endocarditis and they were supportive regarding completing treatment course previously outlined for endocarditis. Regarding purulent fluid, cultures grew alex albicans. Confirmed purulence fluid did not extend deep or involve the sternum and was superficial. Operative cultures from drainage positive for alex albicans. Given cultures were obtained while on cefepime and daptomycin, we would recommend continuing broad coverage to treat for SSTI. Treatment for endocarditis will be covered by the antibiotics treating the SSTI. Reviewed ID involvement in care with patient and . Discussed antibiotic plan and questions answered as needed. Patient tolerating current therapy well and is hopeful to discharge to Rehab or LTAC early next week. Plan: -Continue daptomycin and cefepime as ordered -While on the IV antibiotics, please obtain at least a weekly CBC with diff, weekly CMP, and TWICE weekly CKs for antibiotic toxicity monitoring -End date for daptomycin and cefepime 01/05 -Thank you for allowing us to participate in the care of this patient. For questions or concerns, please do not hesitate to reach out. Assessment & Plan (12/31/2023 4:56 PM ICT BUSINESS DEVELOPMENT MANAGER): Culture negative endocarditis -OR cultures remain neg - ID consulted and following - continue Cefe, Dapto and Micafungin per ID recs -Monitor daily CBC -Remains afebrile -Blood cultures from 12/02 positive for yeast- continue Micafungin 200mg daily per ID -Blood cultures from 12/10-neg -No additional blood cultures per ID Continue Dapto and Cefepime-end date 01/05 -Continue Micafungin- end date 01/[address] Hypertension 11/29/2023 Overview (07/24/2025): -losartan 50mg -coreg BID -hydral 25mg TID -at goal in clinic today Assessment & Plan (10/22/2025 7:15 AM ICT BUSINESS DEVELOPMENT MANAGER): Home regimen of Losartan 50mg, Coreg25 BID, Hydral 25mg TID. -Continue while inpatient Assessment & Plan (10/21/2025 9:19 PM ICT BUSINESS DEVELOPMENT MANAGER): Home regimen of Losartan 50mg, Coreg25 BID, Hydral 25mg TID. -Continue while inpatient Assessment & Plan (05/26/2025 12:07 PM CDT): With baseline 1.5-2, presenting with Cr 2.2 on admission. CKD thought to be in setting of longstanding DM. SARAH may be in setting of decreased intake, low concern for post-renal etiology given without urinary retention. Follows with CKD clinic. Home regimen losartan, jardiance. Cr back to baseline BP sill not at target, on Amlodipine 10 and losartan 100 mg, will add home coreg - ctm, avoid nephrotoxic agents Assessment & Plan (05/25/2025 2:22 PM CDT): With baseline 1.5-2, presenting with Cr 2.2 on admission. CKD thought to be in setting of longstanding DM. SARAH may be in setting of decreased intake, low concern for post-renal etiology given without urinary retention. Follows with CKD clinic. Home regimen losartan, jardiance. Cr back to baseline BP sill not at target, will continue Amlodipine, will increase losartan from 50 mg-- 100 mg - ctm, avoid nephrotoxic agents Assessment & Plan (05/24/2025 2:13 PM CDT): With baseline 1.5-2, presenting with Cr 2.2 on admission. CKD thought to be in setting of longstanding DM. SARAH may be in setting of decreased intake, low concern for post-renal etiology given without urinary retention. Follows with CKD clinic. Home regimen losartan, jardiance. Cr back to baseline BP sill not at target, will continue Amlodipine, will increase losartan from 50 mg-- 100 mg - ctm, avoid nephrotoxic agents Assessment & Plan (05/23/2025 4:32 PM CDT): With baseline 1.5-2, presenting with Cr 2.2 on admission. CKD thought to be in setting of longstanding DM. SARAH may be in setting of decreased intake, low concern for post-renal etiology given without urinary retention. Follows with CKD clinic. Home regimen losartan, jardiance. Cr back to baseline BP uncontrolled today likely secondary to holding Losartan in the context of SARAH - will resume losartan, jardiance, will add amlodipine 10 mg - ctm, avoid nephrotoxic agents Assessment & Plan (05/22/2025 7:58 AM CDT): Home regimen losartan 50 mg. - Hold losartan iso SARAH Assessment & Plan (05/21/2025 9:35 AM CDT): Home regimen losartan 50 mg. - Hold losartan iso SARAH Assessment & Plan (05/20/2025 9:57 AM CDT): Home regimen losartan 50 mg. - Hold losartan iso SARAH Assessment & Plan (05/19/2025 10:20 AM CDT): Home regimen losartan 50 mg. - hold losartan iso SARAH Assessment & Plan (12/28/2023 6:08 PM ICT BUSINESS DEVELOPMENT MANAGER): -Monitor VS Q4H -Continue Metoprolol at current dose -Encourage low sodium diet Sacral wound 11/29/2023 Overview (04/07/2024): -wound appears to be healing well -follows with wound clinic but was told to reach out to PCP for pain management -using barrier cream and donut pillow -still having significant pain -was using oxycodone for pain ran out recently Continue with would clinic, consider refill of oxycodone. Assessment & Plan (12/30/2023 3:43 PM ICT BUSINESS DEVELOPMENT MANAGER): -Patient reports he developed sacral wound at OSH -Continue wound care, wound team following -Continue topical Lidocaine for pain control Polysubstance abuse 11/29/2023 Assessment & Plan (12/28/2023 6:08 PM ICT BUSINESS DEVELOPMENT MANAGER): Hx of alcohol, marijuana and tobacco abuse Severe protein-calorie malnutrition 11/19/2023 Assessment & Plan (12/31/2023 4:55 PM ICT BUSINESS DEVELOPMENT MANAGER): Oral intake continues to improve G tube being flushed only, no feedings PEG tube (placed on 11/04 at OSH) -All Purpose Clerk following, appreciate recs Severe mitral regurgitation 11/18/2023 Assessment & Plan (12/31/2023 4:55 PM ICT BUSINESS DEVELOPMENT MANAGER): -s/p MVR (#33mm [facility]) on 11/25/2312/20: redo sternotomy, MVR (29 Hdz) Most recent TWAN prior to 12/20 surgery: normal LVF, eccentric and wall-hugging jet, potentially representing severe mitral paravalvular leak. -TTF again 12/22 -Continue ASA, metoprolol and statin -No anticoagulation (bio MV) - antibiotics to continue until 01/10, PICC placed -Encourage pulmonary hygiene, IS -Continue PT/OT -Sternal joel removed on 12/29 Working on placement at [place] (LTAC) Tachycardia 11/08/2023 Oliguria 11/08/2023 Type 2 diabetes mellitus wit h diabetic polyneuropathy, with long-term current use of insulin 11/07/2023 Overview (06/07/2024): -lantus 18 units nightly -last A1c 6.1 -on metformin before with upset stomach Will decrease lantus to 15 units, start metformin 500mg XR, reviewed side effects and take with food. Assessment & Plan (10/22/2025 7:15 AM ICT BUSINESS DEVELOPMENT MANAGER): Patient with history of T2DM on Jardiance 10mg daily. HbA1c in 2024 of 6.3 % -Continue to monitor with POC BG TIDAC, SSI -Continue home Gabapentin 400mg TID for neuropathic pain Assessment & Plan (10/21/2025 9:19 PM ICT BUSINESS DEVELOPMENT MANAGER): Patient with history of T2DM on Jardiance 10mg daily. HbA1c in 2024 of 6.3 % -Continue to monitor with POC BG TIDAC, SSI -Continue home Gabapentin 400mg TID for neuropathic pain Assessment & Plan (08/20/2025 5:01 PM CDT): ADA Risk Category 3 (High): Presence of diabetes with previous history of ulcer or lower extremity amputation Assessment & Plan (07/28/2025 8:52 PM CDT): Consistent carb diet. Encouraged good glycemic control to help with wound healing. Assessment & Plan (07/06/2025 8:21 AM CDT): He is ADA risk stratification-urgent secondary to right 2nd toe ulcer and osteomyelitis. Assessment & Plan (06/19/2025 2:48 AM CDT): He remains at ADA risk stratification-urgent secondary to 2nd toe new ulcer site. I have written a prescription for diabetic shoes and multi density pressure relief inserts. Continue surgical shoe for now. Limit weight-bearing when possible so as not to exacerbate the right 2nd toe ulcer. Assessment & Plan (07/25/2024 11:30 AM CDT): Last A1c 6.1%. Patient reports PCP recently discontinued lantus nightly with improved A1c. Now on Metformin XR 500 mg daily Hold metformin while inpatient Carb consistent diet w sliding scale coverage Assessment & Plan (12/30/2023 3:39 PM ICT BUSINESS DEVELOPMENT MANAGER): 10/01/23 A1C 9.5 On Lantus and Humalog at home for blood glucose management Monitor accu-checks ACHS Continue Lantus nightly Continue Lispro SSI qid, ac and hs Tolerating diet well, no longer requiring G-tube feedings POC glucose 106-170 over past 24 hours Hypokalemia 11/06/2023 Arterial hypotension 11/05/2023 DVT (deep venous thrombosis) 11/04/2023 Overview (04/25/2025): -xarelto 20mg daily -following with hematology, seeing IR later this month Assessment & Plan (10/22/2025 8:54 AM ICT BUSINESS DEVELOPMENT MANAGER): Patient presenting with acute on chronic lower extremity edema, erythema with history of lymphedema iso of missing recent appointment to lymphedema clinic and lack of access to home GDMT after recent diagnosis of HFrEF iso NSTEMI s/p PCI. Patient also has history chronic DVTs and non-occlusive PEs on indefinite Xarelto (reporting adherence) and history of recurrent cellulitis ( 12/2024 for LLE cellulitis ). Exam reassuring with stable vitals, lack of leukocytosis, and bilaterally LE swelling/erythema concerning for venous stasis dermatitis v.s pitting edema iso HFrEF v.s lymphedema. Patient follows with [facility] for history of postthrombotic syndrome with inflammation. -Plan to resume home GDMT: Jardiance 10mg and Coreg 25 BID -OT Lymphedema c/s -Will defer antibiotics given low concern for infection at this time. -Repeat TTE and LE USordered by ED, pending results Assessment & Plan (10/21/2025 9:19 PM ICT BUSINESS DEVELOPMENT MANAGER): Patient presenting with acute on chronic lower extremity edema, erythema with history of lymphedema iso of missing recent appointment to lymphedema clinic and lack of access to home GDMT after recent diagnosis of HFrEF iso NSTEMI s/p PCI. Patient also has history chronic DVTs and non-occlusive PEs on indefinite Xarelto (reporting adherence) and history of recurrent cellulitis ( 12/2024 for LLE cellulitis ). Exam reassuring with stable vitals, lack of leukocytosis, and bilaterally LE swelling/erythema concerning for venous stasis dermatitis v.s pitting edema iso HFrEF v.s lymphedema. -Plan to resume home GDMT: Jardiance 10mg and Coreg 25 BID -Lymphedema c/s -Will defer antibiotics given low concern for infection at this time. -Consider Lasix 40mg IV given lasix naive for LE edema -Repeat TTE and LE US Assessment & Plan (05/26/2025 12:07 PM CDT): Failed eliquis. Will continue home xarelto 20 mg daily Assessment & Plan (05/25/2025 2:22 PM CDT): Failed eliquis. Will continue home xarelto 20 mg daily Assessment & Plan (05/24/2025 2:13 PM CDT): Failed eliquis. Will continue home xarelto 20 mg daily Assessment & Plan (05/23/2025 4:32 PM CDT): Failed eliquis. Will resume home xarelto 20 mg daily Assessment & Plan (05/22/2025 7:58 AM CDT): Failed eliquis. Cont xarelto 20 mg daily (Holding for potential procedure with podiatry; resume postoperatively) Assessment & Plan (05/21/2025 9:35 AM CDT): Failed eliquis. Cont xarelto 20 mg daily (Holding for potential procedure with podiatry; resume after) Assessment & Plan (05/20/2025 9:57 AM CDT): Failed eliquis. Cont xarelto 20 mg daily Assessment & Plan (05/19/2025 11:35 AM CDT): Failed eliquis. Cont xarelto 20 mg daily Assessment & Plan (07/26/2024 1:14 PM CDT): Substituting lovenox in lieu of Xarelto before OR Some R leg edema, probably postphlebitic/venous insufficiency, consider (open toe) compression stockings when cellulitis resolved Provoked dvt 09/2023, also on AC due to recent bioprosthetic valve implant nov 2023 Plan: -Restart Xarelto 20mg daily upon discharge -Recommend discussion w fitness sales consultant/cardiac surgeon regarding proposed duration of anticoagulation on outpatient follow up Assessment & Plan (12/17/2023 11:10 AM ICT BUSINESS DEVELOPMENT MANAGER): Last Doppler (10/26/23): +DVT right posterior tibial and peroneal veins and in the bilateral gastrocnemius veins -Holding anticoagulation with Bival and Coumadin due to GIB (See GIB problem) Moderate malnutrition 10/02/2023 Septic shock 09/29/2023 Acute respiratory failure 09/28/2023 Assessment & Plan (12/31/2023 4:55 PM ICT BUSINESS DEVELOPMENT MANAGER): OSH course complicated by pericardial effusion, pneumonia and respiratory failure S/p trach placement on 10/21 at OSH Trach last downsized on 11/25/23 to #[id number] cuffed Weaned to trach collar in the ICU Continue respiratory therapy Continue HHTC with 28 % FiO2 Wean FiO2 for SaO2 > 90 Trach suction/pulmonary toilet. No suctioning needed Plan to leave trach in place for rehab facility ID following and pt currently on Cefe, Dapto, micafungin - continue Dysphagia 09/28/2023 Hypokalemia 08/05/2023 Hernia of anterior abdominal wall 01/19/2023 Insomnia 01/12/2023 Foot pain 11/21/2020 Diabetic peripheral neuropat hy associated with type 2 diabetes mellitus 11/21/2020 Diabetic peripheral neuropathy 09/10/2020 Assessment & Plan (05/26/2025 12:07 PM CDT): A1c 6.3 05/18. Home regimen includes jardiance. Not currently taking metformin. - will continue Jardiance, SARAH resolved - LDSSI Assessment & Plan (05/25/2025 2:22 PM CDT): A1c 6.3 05/18. Home regimen includes jardiance. Not currently taking metformin. - will continue Jardiance, SARAH resolved - LDSSI Assessment & Plan (05/25/2025 11:39 AM CDT): Consistent carb diet. We discussed the need to follow the diet and eliminate simple sugars from his diet including the alan Pepsi that is at bedside today. Assessment & Plan (05/24/2025 2:13 PM CDT): A1c 6.3 7. Home regimen includes jardiance. Not currently taking metformin. - will continue Jardiance, SARAH resolved - LDSSI Assessment & Plan (05/23/2025 4:32 PM CDT): A1c 6.3 7. Home regimen includes jardiance. Not currently taking metformin. - will resume Jardiance, SARAH resolved - LDSSI Assessment & Plan (05/22/2025 7:58 AM CDT): A1c 6.3 7/10. Home regimen includes jardiance. Not currently taking metformin. - Hold jardiance iso SARAH - LDSSI Assessment & Plan (05/21/2025 9:32 AM CDT): A1c 6.3 7/10. Home regimen includes jardiance. Not currently taking metformin. - Hold jardiance iso SARAH - LDSSI Assessment & Plan (05/20/2025 9:57 AM CDT): A1c 6.3 7/10. Home regimen includes jardiance. Not currently taking metformin. - Hold jardiance iso SARAH - LDSSI Assessment & Plan (05/19/2025 10:20 AM CDT): A1c 6.3 7/10. Home regimen includes jardiance. Not currently taking metformin. - hold jardiance iso SARAH - LDSSI Misuse of drugs 05/10/2020 Chronic pain of both knees 08/06/2018 Neuropathy 08/19/2017 Resolved Problems Problem Noted Date Diagnosed Date Resolved Date Bilious vomiting with nausea 05/24/2025 05/26/2025 Assessment & Plan (05/26/2025 12:07 PM CDT): Reporting epigastric /RUQ discomfort Lipase: normal, RUQ US: biliary sludge otherwise no cholecystitis signs Plan Reglan 5 mg TID and Zofran prn PPI and Maalox Assessment & Plan (05/25/2025 3:35 PM CDT): Reporting epigastric /RUQ discomfort Lipase: normal, RUQ US: biliary sludge otherwise no cholecystitis signs Plan Reglan 5 mg TID and Zofran prn PPI and Maalox Assessment & Plan (05/24/2025 2:13 PM CDT): Zofran prn Reporting epigastric discomfort, on PPI and Maalox IVF 500 ml bolus Dysuria 05/24/2025 05/25/2025 Assessment & Plan (05/25/2025 3:35 PM CDT): UA: mild proteinuria otherwise unremarkable, glucosuria likely due to JArdiance Assessment & Plan (05/24/2025 2:13 PM CDT): Will obtain UA Cellulitis 05/19/2025 05/26/2025 Assessment & Plan (05/26/2025 12:07 PM CDT): With chronic venous insufficiency, frequent episodes of lower extremity cellulitis. Presenting for worsening pain, swelling of medial right calf. No leukocytosis, afebrile, reports fevers and chills at home. His medial right calf is not significantly erythematous though is warm to touch, tender to palpation, with hardened tissue. - vanc/cefe/flagyl as above - tylenol, oxy 5 q4hrs prn, dilaudid 0.5 mg q4hrs for breakthrough - cont home gabapentin 400 TID, tizanidine prn Assessment & Plan (05/26/2025 10:10 AM CDT): Right lower extremity cellulitis improved w/ empiric broad-spectrum IV antibiotics (vancomycin, cefepime, metronidazole). - Can transition to doxycycline 100mg PO x 7 days on discharge - Follow-up ID clinic PRN Assessment & Plan (05/25/2025 2:22 PM CDT): With chronic venous insufficiency, frequent episodes of lower extremity cellulitis. Presenting for worsening pain, swelling of medial right calf. No leukocytosis, afebrile, reports fevers and chills at home. His medial right calf is not significantly erythematous though is warm to touch, tender to palpation, with hardened tissue. - vanc/cefe/flagyl as above - tylenol, oxy 5 q4hrs prn, dilaudid 0.5 mg q4hrs for breakthrough - cont home gabapentin 400 TID, tizanidine prn Assessment & Plan (05/24/2025 2:13 PM CDT): With chronic venous insufficiency, frequent episodes of lower extremity cellulitis. Presenting for worsening pain, swelling of medial right calf. No leukocytosis, afebrile, reports fevers and chills at home. His medial right calf is not significantly erythematous though is warm to touch, tender to palpation, with hardened tissue. - vanc/cefe/flagyl as above - tylenol, oxy 5 q4hrs prn, dilaudid 0.5 mg q4hrs for breakthrough - cont home gabapentin 400 TID, tizanidine prn Assessment & Plan (05/23/2025 4:32 PM CDT): With chronic venous insufficiency, frequent episodes of lower extremity cellulitis. Presenting for worsening pain, swelling of medial right calf. No leukocytosis, afebrile, reports fevers and chills at home. His medial right calf is not significantly erythematous though is warm to touch, tender to palpation, with hardened tissue. - vanc/cefe/flagyl as above - tylenol, oxy 5 q4hrs prn, dilaudid 0.5 mg q4hrs for breakthrough - cont home gabapentin 400 TID, tizanidine prn Assessment & Plan (05/22/2025 7:58 AM CDT): With chronic venous insufficiency, frequent episodes of lower extremity cellulitis. Presenting for worsening pain, swelling of medial right calf. No leukocytosis, afebrile, reports fevers and chills at home. His medial right calf is not significantly erythematous though is warm to touch, tender to palpation, with hardened tissue. - vanc/cefe/flagyl as above - tylenol, oxy 5 q4hrs prn, dilaudid 0.5 mg q4hrs for breakthrough - cont home gabapentin 400 TID, tizanidine prn Assessment & Plan (05/21/2025 9:32 AM CDT): With chronic venous insufficiency, frequent episodes of lower extremity cellulitis. Presenting for worsening pain, swelling of medial right calf. No leukocytosis, afebrile, reports fevers and chills at home. His medial right calf is not significantly erythematous though is warm to touch, tender to palpation, with hardened tissue. - vanc/cefe/flagyl as above - tylenol, oxy 5 q4hrs prn, dilaudid 0.5 mg q4hrs for breakthrough - cont home gabapentin 400 TID, tizanidine prn Assessment & Plan (05/20/2025 9:57 AM CDT): With chronic venous insufficiency, frequent episodes of lower extremity cellulitis. Presenting for worsening pain, swelling of medial right calf. No leukocytosis, afebrile, reports fevers and chills at home. His medial right calf is not significantly erythematous though is warm to touch, tender to palpation, with hardened tissue. - vanc/cefe/flagyl as above - tylenol, oxy 5 q4hrs prn, dilaudid 0.5 mg q4hrs for breakthrough - cont home gabapentin 400 TID, tizanidine prn Assessment & Plan (05/19/2025 11:35 AM CDT): With chronic venous insufficiency, frequent episodes of lower extremity cellulitis. Presenting for worsening pain, swelling of medial right calf. No leukocytosis, afebrile, reports fevers and chills at home. His medial right calf is not significantly erythematous though is warm to touch, tender to palpation, with hardened tissue. - vanc/cefe/flagyl as above - tylenol, oxy 5 q4hrs prn, dilaudid 0.5 mg q4hrs for breakthrough - cont home gabapentin 400 TID, tizanidine prn SARAH (acute kidney injury) 05/19/2025 Assessment & Plan (05/23/2025 4:32 PM CDT): With baseline 1.5-2, presenting with Cr 2.2 on admission. CKD thought to be in setting of longstanding DM. SARAH may be in setting of decreased intake, low concern for post-renal etiology given without urinary retention. Follows with CKD clinic. Home regimen losartan, jardiance. Cr back to baseline BP uncontrolled today likely secondary to holding Losartan in the context of SARAH - will resume losartan, jardiance, will add amlodipine 10 mg - ctm, avoid nephrotoxic agents Assessment & Plan (05/22/2025 7:58 AM CDT): With baseline 1.5-2, presenting with Cr 2.2 on admission. CKD thought to be in setting of longstanding DM. SARAH may be in setting of decreased intake, low concern for post-renal etiology given without urinary retention. Follows with CKD clinic. Home regimen losartan, jardiance. - ctm, avoid nephrotoxic agents - Hold losartan, jardiance Assessment & Plan (05/21/2025 9:35 AM CDT): With baseline 1.5-2, presenting with Cr 2.2 on admission. CKD thought to be in setting of longstanding DM. SARAH may be in setting of decreased intake, low concern for post-renal etiology given without urinary retention. Follows with CKD clinic. Home regimen losartan, jardiance. - ctm, avoid nephrotoxic agents - Hold losartan, jardiance Assessment & Plan (05/20/2025 9:57 AM CDT): With baseline 1.5-2, presenting with Cr 2.2 on admission. CKD thought to be in setting of longstanding DM. SARAH may be in setting of decreased intake, low concern for post-renal etiology given without urinary retention. Follows with CKD clinic. Home regimen losartan, jardiance. - ctm, avoid nephrotoxic agents - Hold losartan, jardiance Assessment & Plan (05/19/2025 10:20 AM CDT): With baseline 1.5-2, presenting with Cr 2.2 on admission. CKD thought to be in setting of longstanding DM. SARAH may be in setting of decreased intake, low concern for post-renal etiology given without urinary retention. Follows with CKD clinic. Home regimen losartan, jardiance. - 1L LR - ctm, avoid nephrotoxic agents - hold losartan, jardiance Fungal infection of toenail 05/19/2025 05/26/2025 Assessment & Plan (05/26/2025 12:07 PM CDT): Hold home terbinafine Assessment & Plan (05/25/2025 2:22 PM CDT): Hold home terbinafine Assessment & Plan (05/24/2025 2:13 PM CDT): Hold home terbinafine Assessment & Plan (05/23/2025 4:32 PM CDT): Hold home terbinafine Assessment & Plan (05/22/2025 7:58 AM CDT): Hold home terbinafine Assessment & Plan (05/21/2025 9:32 AM CDT): Hold home terbinafine Assessment & Plan (05/20/2025 9:57 AM CDT): Hold home terbinafine Assessment & Plan (05/19/2025 10:20 AM CDT): Hold home terbinafine Osteomyelitis 05/18/2025 05/26/2025 Assessment & Plan (05/26/2025 12:07 PM CDT): With known OM of left distal 2nd phalanx who presents with purulent drainage of left toe ulcer. On exam with ulceration of 2nd left toe and great right toe present without significant drainage, with surrounding erythema, no pain to palpation due to neuropathy. XR bilateral feet with possible OM of same left toe and possible OM of distal 2nd phalanx. With elevated ESR/CRP. He follows with Dr. Smith of podiatry s/p Amputation of left 2nd toe on 05/22 , NGTD - Discussed with ID, considering source removal and IV abx x week, can be discharged on oral Doxycycline x 7 days - Pending bone pathology results, NGTD, will follow in clinic with podiatry - Pain control Assessment & Plan (05/25/2025 3:35 PM CDT): With known OM of left distal 2nd phalanx who presents with purulent drainage of left toe ulcer. On exam with ulceration of 2nd left toe and great right toe present without significant drainage, with surrounding erythema, no pain to palpation due to neuropathy. XR bilateral feet with possible OM of same left toe and possible OM of distal 2nd phalanx. With elevated ESR/CRP. He follows with Dr. Smith of podiatry s/p Amputation of left 2nd toe on 05/22 - Vancomycin Bilevel, will administer dose once today, will repeat level in 24 hours post adminstration - will continue cefepime and flagyl - will follow cultures and pathology, NGTD - Pain control Assessment & Plan (05/24/2025 2:13 PM CDT): With known OM of left distal 2nd phalanx who presents with purulent drainage of left toe ulcer. On exam with ulceration of 2nd left toe and great right toe present without significant drainage, with surrounding erythema, no pain to palpation due to neuropathy. XR bilateral feet with possible OM of same left toe and possible OM of distal 2nd phalanx. With elevated ESR/CRP. He follows with Dr. Smith of podiatry s/p Amputation of left 2nd toe on 05/22 - Vancomycin level supra therapeutic, will hold and repeat level - Reporting Vomiting to flagyl and refusing PO pills, switched flagyl to IV - Continues cefepime - will follow cultures and pathology, NGTD - Pain control Assessment & Plan (05/23/2025 4:32 PM CDT): With known OM of left distal 2nd phalanx who presents with purulent drainage of left toe ulcer. On exam with ulceration of 2nd left toe and great right toe present without significant drainage, with surrounding erythema, no pain to palpation due to neuropathy. XR bilateral feet with possible OM of same left toe and possible OM of distal 2nd phalanx. With elevated ESR/CRP. He follows with Dr. Smith of podiatry s/p Amputation of left 2nd toe on 05/22 - will cont vanc/cefe/flagyl - will follow cultures and pathology, NGTD - Pain control Assessment & Plan (05/22/2025 7:58 AM CDT): With known OM of left distal 2nd phalanx who presents with purulent drainage of left toe ulcer. On exam with ulceration of 2nd left toe and great right toe present without significant drainage, with surrounding erythema, no pain to palpation due to neuropathy. XR bilateral feet with possible OM of same left toe and possible OM of distal 2nd phalanx. With elevated ESR/CRP. He follows with Dr. Smith of podiatry (is currently scheduled to have amputation 06/05 of multiple toes), who recommended admission for IV antibiotics and possible expedited amputation. - cont vanc/cefe/flagyl - podiatry c/s, appreciate recs - MRI Rt Foot wo cont revealed small focus of osteomyelitis involving the medial aspect of the head of the proximal phalanx of the right great toe. - Tentatively planning surgery (partial amputation left 2nd toe) on 05/[address] Weir Assessment & Plan (05/21/2025 9:32 AM CDT): With known OM of left distal 2nd phalanx who presents with purulent drainage of left toe ulcer. On exam with ulceration of 2nd left toe and great right toe present without significant drainage, with surrounding erythema, no pain to palpation due to neuropathy. XR bilateral feet with possible OM of same left toe and possible OM of distal 2nd phalanx. With elevated ESR/CRP. He follows with Dr. Smith of podiatry (is currently scheduled to have amputation 06/05 of multiple toes), who recommended admission for IV antibiotics and possible expedited amputation. - cont vanc/cefe/flagyl - podiatry c/s, appreciate recs - MRI wo contrast of right foot (Pending) - Tentatively planning surgery on 05/[address] Weir Assessment & Plan (05/20/2025 9:57 AM CDT): With known OM of left distal 2nd phalanx who presents with purulent drainage of left toe ulcer. On exam with ulceration of 2nd left toe and great right toe present without significant drainage, with surrounding erythema, no pain to palpation due to neuropathy. XR bilateral feet with possible OM of same left toe and possible OM of distal 2nd phalanx. With elevated ESR/CRP. He follows with Dr. Smith of podiatry (is currently scheduled to have amputation 06/05 of multiple toes), who recommended admission for IV antibiotics and possible expedited amputation. - cont vanc/cefe/flagyl - podiatry c/s, appreciate recs - MRI wo contrast of right foot (Pending) - Tentatively planning surgery on 05/[address] Weir Assessment & Plan (05/19/2025 10:20 AM CDT): With known OM of left distal 2nd phalanx who presents with purulent drainage of left toe ulcer. On exam with ulceration of 2nd left toe and great right toe present without significant drainage, with surrounding erythema, no pain to palpation due to neuropathy. XR bilateral feet with possible OM of same left toe and possible OM of distal 2nd phalanx. With elevated ESR/CRP. He follows with Dr. Smith of podiatry (is currently scheduled to have amputation 06/05 of multiple toes), who recommended admission for IV antibiotics and possible expedited amputation. - s/p vanc/cefe - cont vanc/cefe/flagyl - podiatry c/s, appreciate recs - MRI wo contrast of right foot - tentatively planning surgery on 05/22 Osteomyelitis of second toe of left foot 05/10/2025 05/26/2025 Assessment & Plan (05/26/2025 10:13 AM CDT): History of DM w/ neuropathy and prior right great toe osteomyelitis (MSSA, Strep dysgalactiae) s/p partial amputation (07/25/2024), admitted w/ left 2nd toe diabetic foot ulcer w/ osteomyelitis of the distal phalanx + right great toe ulcer w/ osteomyelitis of the proximal phalanx. S/P left second toe amputation (at the DIP joint) + right great toe amputation (at the MTP joint) on 05/22/2025. ESR 60, CRP 26.6. Supratherapeutic vancomycin trough of 27.7 on 05/23/2025. Random level 15.9 on 05/24/2025. - D/C IV cefepime + IV metronidazole - wmputations achieved source control for osteomyelitis involving the left 2nd distal phalanx and right great toe proximal phalanx. - Follow-up 05/22/2025 operative cultures (left 2nd toe distal phalanx bone) - no growth thusfar - Will monitor peripherally at this point, but please contact w/ questions Assessment & Plan (05/25/2025 11:34 AM CDT): One day status post amputation. Dry dressing reapplied left foot. Sutures to be left intact for at least 3 weeks. Limit weight-bearing when possible. I am ordering postop shoes for bilateral feet. This should help protect the feet much better. Await bone culture. Expect that he would only need short course 5-7 days of oral antibiotic for soft tissue coverage. Assessment & Plan (05/15/2025 11:04 AM CDT): I have explained the surgical risks and benefits with the patient and/or family today regarding this minor risk procedure(s). All questions were answered fully and no implied or written guarantees were offered. Informed surgical consent reviewed. Plan is for partial amputation left 2nd toe . The patient has failed conservative care which has included accommodative shoe/padding, pain medication, and recommendations and treatment from our office. Based upon this failure, the patient's desire to correct the deformity, prevent additional complications, and improve pain/function, it is felt that surgical intervention is the best option at this time. Decision was made by the patient after being presented with all possible treatment options. The procedure will be performed under MAC (monitored anesthetic care). Patient will go to PAT clinic for evaluation pre-operatively. The patient's active medication list was reviewed. I have requested the following modifications perioperatively: None. The patient agreed to follow and abide by my perioperative recommendations. Patient understands that if he does not follow these, that he is at risk for complications. Patient verbalized understanding. I reiterated again to the patient that not all surgeries are 100% successful and I cannot guarantee a good surgical result. The ramifications, risks, benefits, treatment alternatives, follow up, and compliance were were explained to the patient. The patient understood the risks and benefits of surgery, including, but not limited to bleeding, infection, nerve or muscle injury, need for reoperation, nonunion, malunion, and recurrence of deformity, and in an extreme situation loss of digit or limb. The patient is told that they may have recurrent or increased pain, recurrence of the issue, complications specific to the procedure, scar tissue, nerve related issues, and possible postoperative infection. The expected post-operative course was discussed in detail. We also discussed that it is possible that any hardware implanted during the surgery such as screws plates are pins may need to be removed postoperatively. This would be a separate surgical procedure. Imaging was reviewed and the planned surgery was discussed utilizing the patient's radiographic images. We have discussed expectations after surgical recovery is complete, including possible physical therapy, changes in shoewear and duration of swelling. Patient verbalized that they understood that not all surgery is 100% successful. Pyogenic inflammation of bone 07/25/2024 06/07/2025 Cellulitis of right leg 07/22/202407/10 Supratherapeutic INR 12/12/2023 024 Assessment & Plan (12/12/2023 12:20 PM ICT BUSINESS DEVELOPMENT MANAGER): Continue to give FFP to get INR <1.5 for OR Check LFT Dc acetaminophen until LFT results If LFT elevated should stop statin also Drainage from wound 12/11/2023 12/23/19 24 Assessment & Plan (12/23/2023 2:52 PM ICT BUSINESS DEVELOPMENT MANAGER): Sternal wound drainage, Dr. Olivera aware Has two sites of drainage today, cx from 12/15 negative and final Perivalvular leak of prosthetic heart valve 12/10/2023 12/23/2023 Assessment & Plan (12/31/2023 4:56 PM ICT BUSINESS DEVELOPMENT MANAGER): Consider causes for PVL, fragile tissue or infection ID continues to work the infectious cause, consideration of renal calculus as contributing cause Hyponatremia 11/29/2023 12/18/2023 Assessment & Plan (12/17/2023 11:19 AM ICT BUSINESS DEVELOPMENT MANAGER): -na 133 today -continue to monitor -Monitor need for ongoing Lasix Diabetic ulcer of toe of lef t foot associated with type 2 diabetes mellitus, with bone involvement without evidence of necrosis 01/27/2023 05/26/2025 Assessment & Plan (05/26/2025 12:07 PM CDT): With known OM of left distal 2nd phalanx who presents with purulent drainage of left toe ulcer. On exam with ulceration of 2nd left toe and great right toe present without significant drainage, with surrounding erythema, no pain to palpation due to neuropathy. XR bilateral feet with possible OM of same left toe and possible OM of distal 2nd phalanx. With elevated ESR/CRP. He follows with Dr. Smith of podiatry s/p Amputation of left 2nd toe on 05/22 , NGTD - Discussed with ID, considering source removal and IV abx x week, can be discharged on oral Doxycycline x 7 days - Pending bone pathology results, NGTD, will follow in clinic with podiatry - Pain control Assessment & Plan (05/25/2025 3:35 PM CDT): With known OM of left distal 2nd phalanx who presents with purulent drainage of left toe ulcer. On exam with ulceration of 2nd left toe and great right toe present without significant drainage, with surrounding erythema, no pain to palpation due to neuropathy. XR bilateral feet with possible OM of same left toe and possible OM of distal 2nd phalanx. With elevated ESR/CRP. He follows with Dr. Smith of podiatry s/p Amputation of left 2nd toe on 05/22 - Vancomycin Bilevel, will administer dose once today, will repeat level in 24 hours post adminstration - will continue cefepime and flagyl - will follow cultures and pathology, NGTD - Pain control Assessment & Plan (05/25/2025 11:34 AM CDT): Surgically resolved. Assessment & Plan (05/24/2025 2:13 PM CDT): With known OM of left distal 2nd phalanx who presents with purulent drainage of left toe ulcer. On exam with ulceration of 2nd left toe and great right toe present without significant drainage, with surrounding erythema, no pain to palpation due to neuropathy. XR bilateral feet with possible OM of same left toe and possible OM of distal 2nd phalanx. With elevated ESR/CRP. He follows with Dr. Smith of podiatry s/p Amputation of left 2nd toe on 05/22 - Vancomycin level supra therapeutic, will hold and repeat level - Reporting Vomiting to flagyl and refusing PO pills, switched flagyl to IV - Continues cefepime - will follow cultures and pathology, NGTD - Pain control Assessment & Plan (05/23/2025 4:32 PM CDT): With known OM of left distal 2nd phalanx who presents with purulent drainage of left toe ulcer. On exam with ulceration of 2nd left toe and great right toe present without significant drainage, with surrounding erythema, no pain to palpation due to neuropathy. XR bilateral feet with possible OM of same left toe and possible OM of distal 2nd phalanx. With elevated ESR/CRP. He follows with Dr. Smith of podiatry s/p Amputation of left 2nd toe on 05/22 - will cont vanc/cefe/flagyl - will follow cultures and pathology, NGTD - Pain control Assessment & Plan (05/22/2025 7:58 AM CDT): With known OM of left distal 2nd phalanx who presents with purulent drainage of left toe ulcer. On exam with ulceration of 2nd left toe and great right toe present without significant drainage, with surrounding erythema, no pain to palpation due to neuropathy. XR bilateral feet with possible OM of same left toe and possible OM of distal 2nd phalanx. With elevated ESR/CRP. He follows with Dr. Smith of podiatry (is currently scheduled to have amputation 06/05 of multiple toes), who recommended admission for IV antibiotics and possible expedited amputation. - cont vanc/cefe/flagyl - podiatry c/s, appreciate recs - MRI Rt Foot wo cont revealed small focus of osteomyelitis involving the medial aspect of the head of the proximal phalanx of the right great toe. - Tentatively planning surgery (partial amputation left 2nd toe) on 05/[address] Weir Assessment & Plan (05/21/2025 9:32 AM CDT): With known OM of left distal 2nd phalanx who presents with purulent drainage of left toe ulcer. On exam with ulceration of 2nd left toe and great right toe present without significant drainage, with surrounding erythema, no pain to palpation due to neuropathy. XR bilateral feet with possible OM of same left toe and possible OM of distal 2nd phalanx. With elevated ESR/CRP. He follows with Dr. Smith of podiatry (is currently scheduled to have amputation 06/05 of multiple toes), who recommended admission for IV antibiotics and possible expedited amputation. - cont vanc/cefe/flagyl - podiatry c/s, appreciate recs - MRI wo contrast of right foot (Pending) - Tentatively planning surgery on 05/[address] Weir Assessment & Plan (05/20/2025 9:57 AM CDT): With known OM of left distal 2nd phalanx who presents with purulent drainage of left toe ulcer. On exam with ulceration of 2nd left toe and great right toe present without significant drainage, with surrounding erythema, no pain to palpation due to neuropathy. XR bilateral feet with possible OM of same left toe and possible OM of distal 2nd phalanx. With elevated ESR/CRP. He follows with Dr. Smith of podiatry (is currently scheduled to have amputation 06/05 of multiple toes), who recommended admission for IV antibiotics and possible expedited amputation. - cont vanc/cefe/flagyl - podiatry c/s, appreciate recs - MRI wo contrast of right foot (Pending) - Tentatively planning surgery on 05/[address] Weir Assessment & Plan (05/19/2025 10:20 AM CDT): With known OM of left distal 2nd phalanx who presents with purulent drainage of left toe ulcer. On exam with ulceration of 2nd left toe and great right toe present without significant drainage, with surrounding erythema, no pain to palpation due to neuropathy. XR bilateral feet with possible OM of same left toe and possible OM of distal 2nd phalanx. With elevated ESR/CRP. He follows with Dr. Smith of podiatry (is currently scheduled to have amputation 06/05 of multiple toes), who recommended admission for IV antibiotics and possible expedited amputation. - s/p vanc/cefe - cont vanc/cefe/flagyl - podiatry c/s, appreciate recs - MRI wo contrast of right foot - tentatively planning surgery on 05/22 Assessment & Plan (05/15/2025 11:02 AM CDT): Written consent was obtained for debridement of wounds bilateral feet. Using 15 blade I performed excisional debridement of ulcer left 2nd toe to remove nonviable fibrin slough, biofilm, and also subcutaneous tissue from the left 2nd toe distally that was nonviable. Wound base was granular with active bleeding at both sites post debridement. Bleeding was controlled with direct pressure. The sites were dressed with silver alginate, 4 x 4 gauze, and tape. Monitor for any signs of infection. Daily care instructions were given. Use offloading shoe at all times when standing or walking. Do not expose ulcer sites to bath or shower water. Total area of debridement: 0.15 sq cm including subcutaneous tissue left 2nd toe Ulcer of right foot due to t ype 2 diabetes mellitus 01/19/2023 05/15/2025 Diabetic foot infection 09/25/201906/09 Encounters Date Type Department Care Team Description 10/27/2025 Telephone [facility] Cardiology [address] [place] [address] [place] [phone] Leigh Grey NP 10/26/2025 3:00 PM ICT BUSINESS DEVELOPMENT MANAGER Office Visit [facility] Cardiology [address] [place] [phone] Leigh Grey NP Coronary artery disease involving [place] coronary artery of [place] heart without angina pectoris (Primary Dx); Presence of stent in coronary artery; Stage 3b chronic kidney disease (HCC); S/P MVR (mitral valve repair); Hospital discharge follow-up 10/25/2025 Telephone [facility] [address] [place] [address] Medical Office [address], [address] [place] [phone] Arely Mehta RN pain medication 10/25/2025 [id number] [address] [place] [address] [place] [address] Masha Amador NP Leg swelling (Primary Dx) 10/24/2025 [id number] [address] [place] [address] [place] [phone] Masha Amador NP 10/23/2025 11:00 AM ICT BUSINESS DEVELOPMENT MANAGER Office Visit [facility] [address] [place] [address] [place] [address] Masha Amador NP Trigger ring finger of left hand (Primary Dx); Leg swelling 10/23/2025 [facility] Transitional Care Outreach [facility] Care Coordination [address] [place] [phone] Kellee Flores RN 10/20/2025 4:37 PM ICT BUSINESS DEVELOPMENT MANAGER - 10/22/2025 2:36 PM ICT BUSINESS DEVELOPMENT MANAGER Hospital Encounter [facility] [address] [place] [address] Kellee Aguirre MD Baum, MD Luba Gandhi, Regis Gómez MD Lower extremity edema (Primary Dx); T wave inversion in EKG; Right leg pain; Anxiety Discharge Disposition: Discharge to home or self care 10/13/2025 Orders Only [facility] Medical Group Cardiology [address] [place] [address] Marlene Vallecillo MD 10/12/2025 Orders Only [facility] Medical [facility] [address] [place] [address] Mikey Pedro MD 10/11/2025 Telephone [facility] [address] 8th [place] [address] [place] [phone] Nila Davis MD 10/04/2025 Telephone [facility] Medical [facility] [address] [place] [phone] Elinor Flynn NP 08/11/2025 1:00 PM CDT Office Visit [facility] Medicine Surgery [address] [place] [phone] Keon Smith, DPM Diabetic ulcer of toe of right foot associated with type 2 diabetes mellitus, with necrosis of bone (HCC) (Primary Dx); Type 2 diabetes mellitus with diabetic polyneuropathy, with long-term current use of insulin (HCC); Amputation of right great toe; Hx of amputation of lesser toe, left from Last 3 Months Immunizations Immunization Administration Dates Next Due Tdap 06/14/2019,08/01/2013 Surgical History Surgery Date Site/Laterality Comments EXTRACORPOREAL SHOCK WAVE LITHOTRIPSY Lithotripsy BRONCHOSCOPY 10/21/2023 with trach placement GASTROSTOMY TUBE PLACEMENT 11/04/2023 CARDIOVERSION 10/09/2023 - 11/08/2023 for aflutter CARDIAC CATHETERIZATION FL FLUORO GUIDED LUMBAR PUNCTURE 01/01/2018 Right CARDIAC CATHETERIZATION 05/22/2025 Foot/Left Procedure: AMPUTATION OF SECOND LEFT TOE; Surgeon: Keon Smith DPM; Location: [facility]OD 2; Service: Podiatry Foot / Ankle; Laterality: Left; Medical History Medical History Date Comments Hx Other Medical Sinus problems Calculus of kidney Kidney Stones Diabetes mellitus Hypertension Hyperlipidemia DVT (deep venous thrombosis) Pulmonary embolism Empyema (HCC) COPD (chronic obstructive pulmonary disease) Sepsis (HCC) Respiratory failure (HCC) Severe mitral valve regurgitation Atrial flutter (HCC) 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 Hyponatremia 11/29/2023 Perivalvular leak of prosthetic heart valve 2023 Drainage from wound 12/11/2023 Diarrhea 12/13/2023 Nausea and vomiting 04/19/2025 Family History Medical History Relation Name Comments Other Father No known health problems; Heart attack Maternal Grandfather Myocard ial Infarction; Cause of : Myocardial Infarction Other Mother thyroditis; Relation Name Status Comments Father Maternal Grandfather (Age 64) Mother Alive Social History Tobacco Use Types Packs/Day Years Used Date Smoking Tobacco: Former Cigarettes 1.5 2.1 S tarted: 10/08/2023 Passive Smoke Exposure: Past Smokeless Tobacco: Never Tobacco Cessation:Counseling Given: Not Answered Alcohol Use Standard Drinks/Week Comments Never 0 (1 standard drink = 0.6 oz pur e alcohol) Social Connection and Isolation Panel Answer Date Recorded In a typical week, how many times do you talk on the phone with family, friends, or neighbors? More than three times a week 05/21/2025 How often do you get togethe r with friends or relatives? More than three times a week 05/21/2025 How often do you attend chur or yazidi services? 1 to 4 times per year 05/21/2025 Do you belong to any clubs o r organizations such as yarsani groups, unions, fraternal or athletic groups, or school groups? No 05/21/2025 How often do you attend meet ings of the clubs or organizations you belong to? Never 05/21/2025 Are you , , di vorced, , never , or living with a partner? 05/21/2025 Overall Financial Resource Strain (CARDIA) Answe r Date Recorded How hard is it for you to pa y for the very basics like food, housing, medical care, and heating? Not hard at all 05/21/2025 PHQ-2 Answer Date Recorded PHQ-2 Total Score 0 10/22/2025 [facility] of Occupat ional Health - Occupational Stress Questionnaire Answer Date Recorded Do you feel stress - tense, restless, nervous, or anxious, or unable to sleep at night because your mind is troubled all the time - these days? Very much 11/08/2023 PRAPARE - Transportation Answer Date Re corded In the past 12 months, has l ack of transportation kept you from medical appointments or from getting medications? No 05/09 In the past 12 months, has l ack of transportation kept you from meetings, work, or from getting things needed for daily living? No 05/21/2025 Housing Stability Vital Sign Answer Anthony e [...] place to sleep or slept in a longterm (including now)? No 11/25/2023 Housing Stability Vital Sign Answer Anthony e Recorded In the last 12 months, was t here a time when you were not able to pay the mortgage or rent on time? No 05/21/2025 In the past 12 months, how m any times have you moved where you were living? 0 05/21/2025 At any time in the past 12 m [facility], were you homeless or living in a longterm (including now)? No 05/21/2025 Social Connection and Isolation Panel Answer Date Recorded In a typical week, how many times do you talk on the phone with family, friends, or neighbors? More than three times a week 10/22/2025 How often do you get togethe r with friends or relatives? More than three times a week 10/22/2025 How often do you attend chur or yazidi services? 1 to 4 times per year 10/22/2025 Do you belong to any clubs o r organizations such as yarsani groups, unions, fraternal or athletic groups, or school groups? No 10/22/2025 How often do you attend meet ings of the clubs or organizations you belong to? Never 10/22/2025 Are you , , di vorced, , never , or living with a partner? 10/22/2025 AUDIT-C Answer Date Recorded Q1: How often do you have a drink containing alcohol? Never 07/13/2025 Q2: How many drinks containi ng alcohol do you have on a typical day when you are drinking? Patient does not drink Q3: How often do you have si x or more drinks on one occasion? Never 07/13/2025 Overall Financial Resource Strain (CARDIA) Answe r Date Recorded How hard is it for you to pa y for the very basics like food, housing, medical care, and heating? Not very hard 10/22/2025 Hunger Vital Sign Answer Date Recorded Within the past 12 months, y ou worried that your food would run out before you got the money to buy more. Never true 10/22/20 25 Within the past 12 months, t he food you bought just didn't last and you didn't have money to get more. Never true 10/22/2025 PRAPARE - Transportation Answer Date Re corded In the past 12 months, has l ack of transportation kept you from medical appointments or from getting medications? No 10/09 In the past 12 months, has l ack of transportation kept you from meetings, work, or from getting things needed for daily living? No 10/22/2025 Housing Stability Vital Sign Answer Anthony e Recorded In the last 12 months, was t here a time when you were not able to pay the mortgage or rent on time? No 10/22/2025 In the past 12 months, how m any times have you moved where you were living? 0 10/22/2025 At any time in the past 12 m [facility], were you homeless or living in a longterm (including now)? No 10/22/2025 [facility] Utilities Answer Date Recorded In the past 12 months has th [employer] electric, gas, oil, or water company threatened to shut off services in your home? No 10/22/2025 Personal Safety Answer Date Recorded Have you ever been in or are you currently in a harmful physical or emotional relationship or is someone making you feel afraid or unsafe? Denies 10/21/2025 Sex and Gender Information Value Date Recorded Sex Assigned at Not on file Legal Sex Male 2:41 PM ICT BUSINESS DEVELOPMENT MANAGER Gender Identity Not on file Sexual Orientation Not on file Last Filed Vital Signs Vital Sign Reading Time Taken Comments Blood Pressure 118/56 10/26/2025 2:52 PM ICT BUSINESS DEVELOPMENT MANAGER Pulse 58 10/26/2025 2:52 PM ICT BUSINESS DEVELOPMENT MANAGER Temperature 36.6 C (97.9 F) 10/23/2025 11:05 AM ICT BUSINESS DEVELOPMENT MANAGER Respiratory Rate 16 10/23/2025 11:05 AM ICT BUSINESS DEVELOPMENT MANAGER Oxygen Saturation 98% 10/26/2025 2:52 PM ICT BUSINESS DEVELOPMENT MANAGER Inhaled Oxygen Concentration - - Weight 100.7 kg (222 lb) 10/26/2025 2:52 PM ICT BUSINESS DEVELOPMENT MANAGER Height 182.9 cm (6') 10/26/2025 2:52 PM ICT BUSINESS DEVELOPMENT MANAGER Body Mass Index 30.11 10/26/2025 2:52 PM ICT BUSINESS DEVELOPMENT MANAGER Plan of Treatment Scheduled Procedures Name Priority Associated Diagnoses Date/Ti me ESOPHAGOGASTRODUODENOSCOPY Open Access Weight loss Nausea and vomiting, unspecified vomiting type Health Maintenance Due Date Last Done Comments Dilated Eye Exam 1980 Foot Exam 1980 Varicella Vaccines (1 of 2 - 13+ 2-dose series) 1993 Hepatitis B Screening 1998 Regular Well Visit/Exam 18-64 1998 Pneumococcal vaccine <65 (1 of 2 - PCV) 1999 HPV Vaccines (1 - 3-dose SCD M series) 2007 Influenza Vaccine (#1) 2025 Hemoglobin A1C 04/21/2026 10/21/2025, 10/09, 05/18/2025, Additional history exists Lipid Panel 05/18/2026 05/18/2025, 11/10, 07/21/2024, Additional history exists Albumin Creatinine Ratio, Urine 06/09/2026 06/09/2025, 03/13/2025, 02/13/2025, Additional history exists Depression Screening 10/20/2026 10/20/2025, 05/18/2025, 12/01/2024, Additional history exists eGFR 10/21/2026 10/21/2025, 10/09, 06/26/2025, Additional history exists DTaP/Tdap/Td Vaccine (3 - Td or Tdap) 06/14/2029 06/14/2019, 08/01/2013 Hepatitis C Screening Completed 12/02/2024 Medical Devices Implanted Type Area Butadiene Converter Helper Device Identifier Shelf Expiration Date Model / Serial / Lot [employer] [id number] Od6 Fr L30 Cm L145 Cm Radiopaque; Positioner; Flexible; Guidewire - [id number] Implanted:Qty: 1 on 12/14/2023 by Dayton Case MD at [facility] Stent Right: Ureter [employer] [id number] 02/16/2024 [id number] / / [id number] [employer] Masters-Series 33mm 26.1mm Mechanical Standard Cuff Style [id number] - [id number] - [id number] Implanted:Qty: 1 on 11/25/2023 by Aniceto Olivera MD at [facility] N/A: Heart [employer] [id number] 12/20/2024 [id number] / [id number] / [employer] Supple Evelyn-Guard [place] Processing 4x4cm Patch Cardiovascular [id number] - [id number] Implanted:Qty: 1 on 12/20/2023 by Aniceto Olivera MD at [facility] [employer] [id number] 04/20/2024 [id number] / / [id number]- [id number] Med[employer] Inc Hdz Mitral Valve 29mm [id number] - [id number] - [id number] Implanted:Qty: 1 on 12/20/2023 by Aniceto Olivera MD at [facility] N/A: Heart [employer] [id number] 12/29/2025 [id number] / [id number] / Procedures Procedure Name Priority Date/Time Associated Diagnosis Comments POCT GLUCOSE DEVICE Routine 10/22/2025 1 2:15 PM ICT BUSINESS DEVELOPMENT MANAGER POCT GLUCOSE DEVICE Routine 10/22/2025 8 :18 AM ICT BUSINESS DEVELOPMENT MANAGER EGFR Timed 10/21/2025 9:17 PM ICT BUSINESS DEVELOPMENT MANAGER COMPREHENSIVE METABOLIC PANEL Timed 10/21/2025 9:17 PM ICT BUSINESS DEVELOPMENT MANAGER CBC WITHOUT DIFFERENTIAL Timed 10/21/2025 9:17 PM ICT BUSINESS DEVELOPMENT MANAGER POCT GLUCOSE DEVICE Routine 10/21/2025 8 :20 PM ICT BUSINESS DEVELOPMENT MANAGER POCT GLUCOSE DEVICE Routine 10/21/2025 5 :40 PM ICT BUSINESS DEVELOPMENT MANAGER POCT GLUCOSE DEVICE Routine 10/21/2025 1 2:34 PM ICT BUSINESS DEVELOPMENT MANAGER POCT GLUCOSE DEVICE Routine 10/21/2025 8 :02 AM ICT BUSINESS DEVELOPMENT MANAGER POCT GLUCOSE DEVICE Routine 10/21/2025 4 :01 AM ICT BUSINESS DEVELOPMENT MANAGER POCT GLUCOSE DEVICE Routine 10/21/2025 1 2:58 AM ICT BUSINESS DEVELOPMENT MANAGER TROPONIN I HIGH-SENSITIVITY 2-HOUR Timed 10/20/2025 8:02 PM ICT BUSINESS DEVELOPMENT MANAGER ECG 12-LEAD STAT 10/20/2025 7:59 PM ICT BUSINESS DEVELOPMENT MANAGER POCT GLUCOSE DEVICE Routine 10/20/2025 7 :54 PM ICT BUSINESS DEVELOPMENT MANAGER POCT GLUCOSE DEVICE Routine 10/20/2025 6 :08 PM ICT BUSINESS DEVELOPMENT MANAGER TROPONIN I HIGH-SENSITIVITY SERIES (BASELINE, 2HR, 4HR, 6HR) STAT 10/20/2025 6:06 PM ICT BUSINESS DEVELOPMENT MANAGER HEMOGLOBIN A1C STAT 10/20/2025 5:45 PM ICT BUSINESS DEVELOPMENT MANAGER THYROID FUNCTION CASCADE STAT 10/20/2025 5:45 PM ICT BUSINESS DEVELOPMENT MANAGER EGFR STAT 10/20/2025 5:45 PM ICT BUSINESS DEVELOPMENT MANAGER DIFFERENTIAL AUTO STAT 10/20/2025 5:4 5 PM ICT BUSINESS DEVELOPMENT MANAGER PRO B-TYPE NATRIURETIC PEPTIDE STAT 10/20/2025 5:45 PM ICT BUSINESS DEVELOPMENT MANAGER CRP (ACUTE PHASE) STAT 10/20/2025 5:4 5 PM ICT BUSINESS DEVELOPMENT MANAGER ERYTHROCYTE SEDIMENTATION RATE STAT 10/20/2025 5:45 PM ICT BUSINESS DEVELOPMENT MANAGER SEPSIS LACTATE WITH REFLEX STAT 10/20/2025 5:45 PM ICT BUSINESS DEVELOPMENT MANAGER CBC WITH AUTO DIFFERENTIAL STAT 10/20/2025 5:45 PM ICT BUSINESS DEVELOPMENT MANAGER COMPREHENSIVE METABOLIC PANEL STAT 10/20/2025 5:45 PM ICT BUSINESS DEVELOPMENT MANAGER POCT GLUCOSE DEVICE Routine 10/20/2025 3 :58 PM ICT BUSINESS DEVELOPMENT MANAGER POCT KETONE, BLOOD Routine 10/20/2025 3: 58 PM ICT BUSINESS DEVELOPMENT MANAGER CARDIOLOGY DOCUMENT SCAN Routine 10/04/2025 3:31 PM ICT BUSINESS DEVELOPMENT MANAGER CARDIOLOGY DOCUMENT SCAN Routine 10/03/2025 1:52 PM ICT BUSINESS DEVELOPMENT MANAGER CARDIOLOGY DOCUMENT SCAN Routine 10/03/2025 1:50 PM ICT BUSINESS DEVELOPMENT MANAGER CARDIOLOGY DOCUMENT SCAN Routine 10/02/2025 1:49 PM ICT BUSINESS DEVELOPMENT MANAGER CARDIOLOGY DOCUMENT SCAN Routine 10/02/2025 1:44 PM ICT BUSINESS DEVELOPMENT MANAGER CARDIOLOGY DOCUMENT SCAN Routine 10/01/2025 1:42 PM ICT BUSINESS DEVELOPMENT MANAGER CARDIOLOGY DOCUMENT SCAN Routine 09/30/2025 1:31 PM ICT BUSINESS DEVELOPMENT MANAGER ALBUMIN CREATININE RATIO, URINE Routine 06/09/2025 10:33 AM CDT Nephrotic range proteinuria LIPID PANEL STAT 05/18/2025 11:05 PM CDT HEPATITIS C ANTIBODY Routine 12/02/2024 8:40 PM ICT BUSINESS DEVELOPMENT MANAGER from Last 3 Months or Most Recently Relevant to Health Maintenance Results * POCT glucose (10/22/2025 12:15 PM ICT BUSINESS DEVELOPMENT MANAGER) Glucose, POC 153 70 - 199 mg/dL Blood 10/22/2025 12:1 5 PM ICT BUSINESS DEVELOPMENT MANAGER 10/22/2025 12:15 PM ICT BUSINESS DEVELOPMENT MANAGER Regis Verduzco MD LAB POCT ORDERABLES - DEVICE Final Result Performing Organization Address [facility] Co de Phone Number [facility] Department [place] [address] * POCT glucose (10/22/2025 8:18 AM ICT BUSINESS DEVELOPMENT MANAGER) Glucose, POC 89 70 - 199 mg/dL Blood 10/22/2025 8:18 AM ICT BUSINESS DEVELOPMENT MANAGER 10/22/2025 8:18 AM ICT BUSINESS DEVELOPMENT MANAGER Regis Verduzco MD LAB POCT ORDERABLES - DEVICE Final Result Performing Organization Address [facility] de Phone Number [facility] Department [place] [address] * (ABNORMAL) eGFR (10/21/2025 9:17 PM ICT BUSINESS DEVELOPMENT MANAGER) eGFR 47(L) >=60 mL/min/1. 73 m2 Comment: Interpretive Data Reference Interval Normal >/= 90 mL/min/1.73m2 Mildly decreased* 60 - 89 mL/min/1.73m2 Mildly to moderately decreased 45 - 59 mL/min/1.73m2 Moderately to severely decreased 30 - 44 mL/min/1.73m2 Severely decreased 15 - 29 mL/min/1.73m2 Kidney Failure < 15 mL/min/1.73m2 *Relative to young adult level Estimated glomerular filtration rate is determined by the 2020 CKD-EPI equation recommended by the National Kidney Foundation (A Unifying Approach to GFR Estimation: Recommendations of the NKF-ASK Task Force on Reassessing the Inclusion of Race in Diagnosing Kidney Disease, JASN 2020). The CKD-EPI equation should not be used for patients with unstable renal function and has not been validated in children and those over 70. Current interpretive data was last reviewed 2021. Blood 10/21/2025 9:17 PM ICT BUSINESS DEVELOPMENT MANAGER 10/21/2025 9:52 PM ICT BUSINESS DEVELOPMENT MANAGER Result [facility] Regis Verduzco MD LAB BLOOD ORDERABLES Final Re sult Performing Organization Address City/[facility] Co de Phone Number [facility] Department [place] [address] * (ABNORMAL) CBC without differential (10/21/2025 9:17 PM ICT BUSINESS DEVELOPMENT MANAGER) WBC 4.35 3.80 - 9.90 K/cumm Hgb 9.0(L) 13.0 - 17.5 g/dL [facility] Hct 28.6(L) 38.9 - 50.3 % [facility] Plt 175 150 - 400 K/cumm [facility] MPV 12.3 9.1 - 12.3 fL [facility] RBC 3.29(L) 4.30 - 5.80 M/cumm [facility] MCV 86.9 81.3 - 96.4 fL [facility] MCH 27.4 27.1 - 33.3 pg [facility] MCHC 31.5(L) 32.3 - 35.7 g/dL [facility] RDW CV 15.5(H) 11.1 - 14.9 % [facility] RDW SD 49.8(H) 35.7 - 48.1 fL [facility] NRBC abs 0.00 0.00 - 0.01 K/cumm [facility] Blood 10/21/2025 9:17 PM ICT BUSINESS DEVELOPMENT MANAGER 10/21/2025 9:52 PM ICT BUSINESS DEVELOPMENT MANAGER Regis Verduzco MD LAB BLOOD ORDERABLES Final Re sult Performing Organization Address City/[facility]/ZIP Co de Phone Number [facility] Department [place] [address] * (ABNORMAL) Comprehensive metabolic panel (10/21/2025 9:17 PM ICT BUSINESS DEVELOPMENT MANAGER) Sodium 137 135 - 145 mmol/L Potassium, pl 4.0 3.3 - 4.9 mmol/L [facility] Chloride 108 97 - 110 mmol/L [facility] CO2 19(L) 22 - 32 mmol/L [facility] Anion gap 10 2 - 15 mmol/L [facility] BUN 22 6 - 25 mg/dL [facility] Creatinine 1.80(H) 0.80 - 1.30 mg/dL [facility] Glucose 132 70 - 199 mg/dL [facility] Comment: Interpretive Data Fasting glucose >/= 126 mg/dl is diagnostic for diabetes. Fasting is defined as no caloric intake for at least 8 hours. Fasting glucose between 100 mg/dl to 125 mg/dl is diagnostic of prediabetes. In a patient with classic symptoms of hyperglycemia or hyperglycemic crisis, a random glucose >/= 200 mg/dl is diagnostic for diabetes. In the absence of unequivocal hyperglycemia, results should be confirmed by repeat testing. The classification and Diagnosis of Diabetes Diabetes Care 2021; 46: S19-S40. Current interpretive data was last revised 2022. Calcium 8.4(L) 8.5 - 10.3 mg/dL [facility] Bilirubin, total 0.3 0.1 - 1.2 mg/dL [facility] Protein, pl 7.7 6.5 - 8.5 g/dL [facility] Albumin 3.9 3.5 - 5.0 g/dL [facility] Alk phos 189(H) 40 - 130 Units/L [facility] ALT 8 7 - 55 Units/L [facility] AST 21 10 - 50 Units/L [facility] Blood 10/21/2025 9:17 PM ICT BUSINESS DEVELOPMENT MANAGER 10/21/2025 9:52 PM ICT BUSINESS DEVELOPMENT MANAGER us Regis Verduzco MD LAB BLOOD ORDERABLES Final Re sult [facility] Department [place] [address] * POCT glucose (10/21/2025 8:20 PM ICT BUSINESS DEVELOPMENT MANAGER) Glucose, POC 158 70 - 199 mg/dL Blood 10/21/2025 8:20 PM ICT BUSINESS DEVELOPMENT MANAGER 10/21/2025 8:20 PM ICT BUSINESS DEVELOPMENT MANAGER Regis Verduzco MD LAB POCT ORDERABLES - DEVICE Final Result Performing Organization Address [facility] Co de Phone Number [facility] [place] [address] * POCT glucose (10/21/2025 5:40 PM ICT BUSINESS DEVELOPMENT MANAGER) Glucose, POC 138 70 - 199 mg/dL Blood 10/21/2025 5:40 PM ICT BUSINESS DEVELOPMENT MANAGER 10/21/2025 5:40 PM ICT BUSINESS DEVELOPMENT MANAGER Kellee Aguirre MD LAB POCT ORDERABLES - D EVICE Final Result Performing Organization Address [facility] Co de Phone Number [facility] [place] [address] * POCT glucose (10/21/2025 12:34 PM ICT BUSINESS DEVELOPMENT MANAGER) Glucose, POC 135 70 - 199 mg/dL Blood 10/21/2025 12:3 4 PM ICT BUSINESS DEVELOPMENT MANAGER 10/21/2025 12:34 PM ICT BUSINESS DEVELOPMENT MANAGER Kellee Aguirre MD LAB POCT ORDERABLES - D EVICE Final Result Performing Organization Address [facility] Co de Phone Number [facility] [place] [address] * POCT glucose (10/21/2025 8:02 AM ICT BUSINESS DEVELOPMENT MANAGER) Glucose, POC 96 70 - 199 mg/dL Blood 10/21/2025 8:02 AM ICT BUSINESS DEVELOPMENT MANAGER 10/21/2025 8:02 AM ICT BUSINESS DEVELOPMENT MANAGER Kellee Aguirre MD LAB POCT ORDERABLES - D EVICE Final Result Performing Organization Address [facility] Co de Phone Number [facility] [place] [address] * POCT glucose (10/21/2025 4:01 AM ICT BUSINESS DEVELOPMENT MANAGER) Glucose, POC 133 70 - 199 mg/dL Blood 10/21/2025 4:01 AM ICT BUSINESS DEVELOPMENT MANAGER 10/21/2025 4:01 AM ICT BUSINESS DEVELOPMENT MANAGER Kellee Aguirre MD LAB POCT ORDERABLES - D EVICE Final Result Performing Organization Address [facility] Co de Phone Number [facility] [place] [address] * POCT glucose (10/21/2025 12:58 AM ICT BUSINESS DEVELOPMENT MANAGER) Glucose, POC 180 70 - 199 mg/dL Blood 10/21/2025 12:5 8 AM ICT BUSINESS DEVELOPMENT MANAGER 10/21/2025 12:58 AM ICT BUSINESS DEVELOPMENT MANAGER Kellee Aguirre MD LAB POCT ORDERABLES - D EVICE Final Result Performing Organization Address [facility] de Phone Number [facility] [place] [address] * Troponin I high-sensitivity 2-hour (10/20/2025 8:02 PM ICT BUSINESS DEVELOPMENT MANAGER) Trop I hs 30 <=35 ng/L Comment: Interpretive Data For further hscTnI resources including the diagnostic algorithm and an aid in interpretation, copy and paste this link: https://bjhlab.testcatalog.org/show/[email or web address]-[email or web address] Current Interpretive Data last revised 2020. Trop I hs delta 0 ng/L [facility] Trop I hs interp Insignificant [facility] Blood 10/20/2025 8:02 PM ICT BUSINESS DEVELOPMENT MANAGER 10/20/2025 8:15 PM ICT BUSINESS DEVELOPMENT MANAGER Reina Red MD LAB BLOOD ORDERABLES Final Resul t Performing Organization Address [facility] de Phone Number [facility] Department [place] [address] * ECG 12-LEAD (10/20/2025 7:59 PM ICT BUSINESS DEVELOPMENT MANAGER) Narrative [facility] [place] 10/20/2025 7:59 PM ICT BUSINESS DEVELOPMENT MANAGER Kellee Aguirre MD 10/20/2025 8:02 PM ECG 12 lead Date/Time: 10/20/2025 7:59 PM Performed by: Kellee Aguirre MD Authorized by: Reina Red MD Comments: EKG obtained for leg edema that shows normal sinus rhythm at a rate of 67 with normal axis and prolonged QTC at 5:[address] segment elevation or depression . T-waves inverted in lead 1 and aVL as well as V1 through V2. No ectopy and no bundle branch block. Prior EKG: compared to 12/01/24, T waves inverted in anterior leads us Reina Red MD ECG ORDERABLES Final Result Performing Organization Address [facility] de Phone Number [facility] * POCT glucose (10/20/2025 7:54 PM ICT BUSINESS DEVELOPMENT MANAGER) Glucose, POC 122 70 - 199 mg/dL Blood 10/20/2025 7:54 PM ICT BUSINESS DEVELOPMENT MANAGER 10/20/2025 7:54 PM ICT BUSINESS DEVELOPMENT MANAGER Kellee Aguirre MD LAB POCT ORDERABLES - D EVICE Final Result Performing Organization Address [facility] Co de Phone Number [facility] Department [place] [address] * POCT glucose (10/20/2025 6:08 PM ICT BUSINESS DEVELOPMENT MANAGER) Glucose, POC 83 70 - 199 mg/dL Blood 10/20/2025 6:08 PM ICT BUSINESS DEVELOPMENT MANAGER 10/20/2025 6:08 PM ICT BUSINESS DEVELOPMENT MANAGER us Kellee Aguirre MD LAB POCT ORDERABLES - D LO Final Result Performing Organization Address [facility] [place] [address] * Troponin I high-sensitivity series (baseline, 2hr, 4hr, 6hr) (10/20/2025 6:06 PM ICT BUSINESS DEVELOPMENT MANAGER) [facility] Trop I hs 30 <=35 ng/L Comment: Interpretive Data For further hscTnI resources including the diagnostic algorithm and an aid in interpretation, copy and paste this link: [email or web address].[email or web address]/[email or web address] Current Interpretive Data last revised 2020. Blood 10/20/2025 6:06 PM ICT BUSINESS DEVELOPMENT MANAGER 10/20/2025 6:20 PM ICT BUSINESS DEVELOPMENT MANAGER us Reina Red MD LAB BLOOD ORDERABLES Final Resul t Performing Organization Address [facility] [place] [address] * Sepsis Lactate w/ Reflex (10/20/2025 5:45 PM ICT BUSINESS DEVELOPMENT MANAGER) [facility] Sepsis Lactate 1.3 0.7 - 2.0 mmol/L Blood 10/20/2025 5:45 PM ICT BUSINESS DEVELOPMENT MANAGER 10/20/2025 6:03 PM ICT BUSINESS DEVELOPMENT MANAGER us Reina Red MD LAB BLOOD ORDERABLES Final Resul t Performing Organization Address [facility] Co de Phone Number [facility] [place] [address] * (ABNORMAL) eGFR (10/20/2025 5:45 PM ICT BUSINESS DEVELOPMENT MANAGER) [facility] eGFR 50(L) >=60 mL/min/1. 73 m2 Comment: Interpretive Data Reference Interval Normal >/= 90 mL/min/1.73m2 Mildly decreased* 60 - 89 mL/min/1.73m2 Mildly to moderately decreased 45 - 59 mL/min/1.73m2 Moderately to severely decreased 30 - 44 mL/min/1.73m2 Severely decreased 15 - 29 mL/min/1.73m2 Kidney Failure < 15 mL/min/1.73m2 *Relative to young adult level Estimated glomerular filtration rate is determined by the 2020 CKD-EPI equation recommended by the National Kidney Foundation (A Unifying Approach to GFR Estimation: Recommendations of the NKF-ASK Task Force on Reassessing the Inclusion of Race in Diagnosing Kidney Disease, JASN 2020). The CKD-EPI equation should not be used for patients with unstable renal function and has not been validated in children and those over 70. Current interpretive data was last reviewed 2021. Blood 10/20/2025 5:45 PM ICT BUSINESS DEVELOPMENT MANAGER 10/20/2025 6:19 PM ICT BUSINESS DEVELOPMENT MANAGER us Reina Red MD LAB BLOOD ORDERABLES Final Resul t [facility] Department [place] [address] * Differential, auto (10/20/2025 5:45 PM ICT BUSINESS DEVELOPMENT MANAGER) [facility] Neutrophil abs 2.94 1.50 - 6.50 K/cumm Imm gran abs 0.02 0.00 - 0.10 K/cumm [facility] Lymphocyte abs 1.85 0.80 - 3.30 K/cumm [facility] Monocyte abs 0.37 0.20 - 0.80 K/cumm [facility] Eosinophil abs 0.20 0.00 - 0.50 K/cumm [facility] Basophil abs 0.06 0.00 - 0.10 K/cumm [facility] Neutrophil pct 54.0 % [facility] Comment: Interpretive Data Percent cell count reference ranges are not reported, since discordance with absolute values may lead to misinterpretation of CBC data. Current Interpretive Data was last revised on 2018. Imm gran pct 0.4 % [facility] Comment: Interpretive Data Percent cell count reference ranges are not reported, since discordance with absolute values may lead to misinterpretation of CBC data. Current Interpretive Data was last revised on 2018. Lymphocyte pct 34.0 % [facility] Comment: Interpretive Data Percent cell count reference ranges are not reported, since discordance with absolute values may lead to misinterpretation of CBC data. Current Interpretive Data was last revised on 2018. Monocyte pct 6.8 % [facility] Comment: Interpretive Data Percent cell count reference ranges are not reported, since discordance with absolute values may lead to misinterpretation of CBC data. Current Interpretive Data was last revised on 2018. Eosinophil pct 3.7 % [facility] Comment: Interpretive Data Percent cell count reference ranges are not reported, since discordance with absolute values may lead to misinterpretation of CBC data. Current Interpretive Data was last revised on 2018. Basophil pct 1.1 % [facility] Comment: Interpretive Data Percent cell count reference ranges are not reported, since discordance with absolute values may lead to misinterpretation of CBC data. Current Interpretive Data was last revised on 2018. Blood 10/20/2025 5:45 PM ICT BUSINESS DEVELOPMENT MANAGER 10/20/2025 6:19 PM ICT BUSINESS DEVELOPMENT MANAGER us Reina Red MD LAB BLOOD ORDERABLES Final Resul t [facility] Department [place] [address] * (ABNORMAL) Pro B-type natriuretic peptide (10/20/2025 5:45 PM ICT BUSINESS DEVELOPMENT MANAGER) NT-proBNP 8,037(H) <=300 pg/mL Comment: Interpretive Comments: A. Dyspnea in Acute Care Setting All Ages: < 300 pg/ml, acute heart failure unlikely. < 50 yrs: 300 - 450 pg/ml, further investigation warranted. > 450 pg/ml, acute heart failure likely. 50 - 74 yrs: 300 - 900 pg/ml, further investigation warranted. > 900 pg/ml, acute heart failure likely . > or = 75 yrs: 450 - 1800 pg/ml, further investigation warranted. > 1800 pg/ml, acute heart failure likely. B. Non-acute Setting < 75 yrs < 125 pg/ml, rules out heart failure. > or = 125 pg/ml, further investigation warranted. > or = 75 yrs < 450 pg/ml, rules out heart failure. > or = 450 pg/ml, further investigation warranted. - Knowledge of each individual patient's NT-proBNP range may be more useful than using similar cut-points for every patient. Please note that marked elevations in NT-proBNP levels may be observed in state other than Left Ventricular Congestive Failure, including: acute coronary syndromes, right heart strain/failure (including pulmonary embolism and cor pulmonale), critical illness, renal failure, as well as advanced age. - References: 1. Madina BURNETTE et.al. Eur Heart J. 2006:27:330-337. 2. James RW, Gabino AM. J. AM Julienne Cardiol: Cardiovasc Imag. 2009;2: 216- 225. Interpretive Data Last Revised Date: 2018. Blood 10/20/2025 5:45 PM ICT BUSINESS DEVELOPMENT MANAGER 10/20/2025 6:19 PM ICT BUSINESS DEVELOPMENT MANAGER us Reina Red MD LAB BLOOD ORDERABLES Final Resul t Performing Organization Address [facility] Co de Phone Number [facility] [place] [address] * Thyroid Function Morrill (10/20/2025 5:45 PM ICT BUSINESS DEVELOPMENT MANAGER) TSH 0.91 0.30 - 4.20 mcIUnit/mL Blood 10/20/2025 5:45 PM ICT BUSINESS DEVELOPMENT MANAGER 10/20/2025 6:19 PM ICT BUSINESS DEVELOPMENT MANAGER us Regis Verduzco MD LAB BLOOD ORDERABLES Final Re sult Performing Organization Address [facility] Co de Phone Number [facility] [place] [address] * (ABNORMAL) CBC with auto differential (10/20/2025 5:45 PM ICT BUSINESS DEVELOPMENT MANAGER) [facility] WBC 5.44 3.80 - 9.90 K/cumm Hgb 10.1(L) 13.0 - 17.5 g/dL [facility] Hct 31.5(L) 38.9 - 50.3 % [facility] Plt 198 150 - 400 K/cumm [facility] MPV 12.1 9.1 - 12.3 fL [facility] RBC 3.64(L) 4.30 - 5.80 M/cumm [facility] MCV 86.5 81.3 - 96.4 fL [facility] MCH 27.7 27.1 - 33.3 pg [facility] MCHC 32.1(L) 32.3 - 35.7 g/dL [facility] RDW CV 15.8(H) 11.1 - 14.9 % [facility] RDW SD 50.3(H) 35.7 - 48.1 fL [facility] NRBC abs 0.03(H) 0.00 - 0.01 K/cumm [facility] Blood 10/20/2025 5:45 PM ICT BUSINESS DEVELOPMENT MANAGER 10/20/2025 6:19 PM ICT BUSINESS DEVELOPMENT MANAGER us Reina Red MD LAB BLOOD ORDERABLES Final Resul t Performing Organization Address City/[facility] Co de Phone Number [facility] [place] [address] * (ABNORMAL) Erythrocyte sedimentation rate (10/20/2025 5:45 PM ICT BUSINESS DEVELOPMENT MANAGER) [facility] Erythrocyte sedimentation rate 41(H) 1 - 15 mm/hr Blood 10/20/2025 5:45 PM ICT BUSINESS DEVELOPMENT MANAGER 10/20/2025 6:19 PM ICT BUSINESS DEVELOPMENT MANAGER us Reina Red MD LAB BLOOD ORDERABLES Final Resul t [facility] [place] [address] * CRP (acute phase) (10/20/2025 5:45 PM ICT BUSINESS DEVELOPMENT MANAGER) [facility] CRP 4.2 <=10.0 mg/L Blood 10/20/2025 5:45 PM ICT BUSINESS DEVELOPMENT MANAGER 10/20/2025 6:19 PM ICT BUSINESS DEVELOPMENT MANAGER Reina Red MD LAB BLOOD ORDERABLES Final Resul t Performing Organization Address [facility] de Phone Number [facility] Department [place] [address] * Hemoglobin A1c (10/20/2025 5:45 PM ICT BUSINESS DEVELOPMENT MANAGER) [facility] Hgb A1C 5.5 4.0 - 5.6 % Estimated Average Glucose 111 mg/dL [facility] Comment: The ADA recommends reporting an estimated Average Glucose (eAG) with all Hemoglobin A1c results using the equation derived from a study of 507 normal and diabetic adults. Minority populations were underrepresented and children were not included. (Diabetes Care 2020; 43(S1): S66-S76). The eAG is not equivalent to a fasting glucose. Blood 10/20/2025 5:45 PM ICT BUSINESS DEVELOPMENT MANAGER 10/20/2025 6:23 PM ICT BUSINESS DEVELOPMENT MANAGER Result [facility] Regis Verduzco MD LAB BLOOD ORDERABLES Final Re sult Performing Organization Address [facility] de Phone Number [facility] [place] [address] * (ABNORMAL) Comprehensive metabolic panel (10/20/2025 5:45 PM ICT BUSINESS DEVELOPMENT MANAGER) [facility] Sodium 140 135 - 145 mmol/L Potassium, pl 4.4 3.3 - 4.9 mmol/L [facility] Chloride 107 97 - 110 mmol/L [facility] CO2 19(L) 22 - 32 mmol/L [facility] Anion gap 14 2 - 15 mmol/L [facility] BUN 29(H) 6 - 25 mg/dL [facility] Creatinine 1.72(H) 0.80 - 1.30 mg/dL [facility] Glucose 127 70 - 199 mg/dL [facility] Comment: Interpretive Data Fasting glucose >/= 126 mg/dl is diagnostic for diabetes. Fasting is defined as no caloric intake for at least 8 hours. Fasting glucose between 100 mg/dl to 125 mg/dl is diagnostic of prediabetes. In a patient with classic symptoms of hyperglycemia or hyperglycemic crisis, a random glucose >/= 200 mg/dl is diagnostic for diabetes. In the absence of unequivocal hyperglycemia, results should be confirmed by repeat testing. The classification and Diagnosis of Diabetes Diabetes Care 2021; 46: S19-S40. Current interpretive data was last revised 2022. Calcium 9.0 8.5 - 10.3 mg/dL [facility] Bilirubin, total 0.2 0.1 - 1.2 mg/dL [facility] Protein, pl 8.5 6.5 - 8.5 g/dL [facility] Albumin 4.1 3.5 - 5.0 g/dL [facility] Alk phos 208(H) 40 - 130 Units/L [facility] ALT 13 7 - 55 Units/L [facility] AST 27 10 - 50 Units/L [facility] Blood 10/20/2025 5:45 PM ICT BUSINESS DEVELOPMENT MANAGER 10/20/2025 6:19 PM ICT BUSINESS DEVELOPMENT MANAGER us Reina Red MD LAB BLOOD ORDERABLES Final Resul t Performing Organization Address City/[facility]/ZIP Co de Phone Number [facility] Department [place] [address] * POCT glucose (10/20/2025 3:58 PM ICT BUSINESS DEVELOPMENT MANAGER) Glucose, POC 159 70 - 199 mg/dL Blood 10/20/2025 3:58 PM ICT BUSINESS DEVELOPMENT MANAGER 10/20/2025 3:58 PM ICT BUSINESS DEVELOPMENT MANAGER us Notinfile Unknown LAB POCT ORDERABLES - DEVICE F inal Result Performing Organization Address [facility]/ZIP Co de Phone Number [facility] Department [place] [address] * POCT ketone, blood (10/20/2025 3:58 PM ICT BUSINESS DEVELOPMENT MANAGER) Beta-Hydroxybut yrate, POC <0.1 0.0 - 0.5 mmol/L Blood 10/20/2025 3:58 PM ICT BUSINESS DEVELOPMENT MANAGER 10/20/2025 3:58 PM ICT BUSINESS DEVELOPMENT MANAGER us Notinfile Unknown LAB POCT ORDERABLES - DEVICE F inal Result [facility] Department [place] [address] * Cardiology Document Scan (10/04/2025 3:31 PM ICT BUSINESS DEVELOPMENT MANAGER) Anatomical Region Laterality Modality Other us Marlene Vallecillo MD CV CARDIAC SERVICES PROCEDU RES Final Result * Cardiology Document Scan (10/03/2025 1:52 PM ICT BUSINESS DEVELOPMENT MANAGER) Anatomical Region Laterality Modality Other us Marlene Vallecillo MD CV CARDIAC SERVICES PROCEDU RES Final Result * Cardiology Document Scan (10/03/2025 1:50 PM ICT BUSINESS DEVELOPMENT MANAGER) Anatomical Region Laterality Modality Other us Marlene Vallecillo MD CV CARDIAC SERVICES PROCEDU RES Final Result * Cardiology Document Scan (10/02/2025 1:49 PM ICT BUSINESS DEVELOPMENT MANAGER) Anatomical Region Laterality Modality Other us Marlene Vallecillo MD CV CARDIAC SERVICES PROCEDU RES Final Result * Cardiology Document Scan (10/02/2025 1:44 PM ICT BUSINESS DEVELOPMENT MANAGER) Anatomical Region Laterality Modality Other us Marlene Vallecillo MD CV CARDIAC SERVICES PROCEDU RES Final Result * Cardiology Document Scan (10/01/2025 1:42 PM ICT BUSINESS DEVELOPMENT MANAGER) Anatomical Region Laterality Modality Other us Mikey Pedro MD CV CARDIAC SERVICES PROCEDU RES Final Result * Cardiology Document Scan (09/30/2025 1:31 PM ICT BUSINESS DEVELOPMENT MANAGER) Anatomical Region Laterality Modality Other Mikey Pedro MD CV CARDIAC SERVICES PROCEDU RES Final Result * (ABNORMAL) Albumin Creatinine Ratio, Urine (06/09/2025 10:33 AM CDT) Albumin Ur 1,218.4 mg/L Comment: Interpretive Data No reference range established. Current interpretive data was last revised 2019. Creatinine Ur 131.1 mg/dL [facility] Comment: Interpretive Data No reference range established. Current interpretive data was last revised 2019. Albumin Creatinine Ratio, Ur 929(H) 1 - 29 mg/g [facility] Urine 06/09/2025 10:3 3 AM CDT 06/09/2025 11:08 AM CDT Diana Cabrera MD LAB URINE ORDERABLES Fin al Result [facility] Department [place] [address] * (ABNORMAL) Lipid panel (05/18/2025 11:05 PM CDT) Cholesterol 122 30 - 199 mg/dL Comment: Interpretive Data Ages < or = 19 years Acceptable: <170 mg/dL Borderline high: 170-199 mg/dL High: >or= 200 mg/dL Ages > or = 20 years Desirable: <200 mg/dL Borderline high: 200-239 mg/dL High: >or= 240 mg/dL Literature References: 1. Expert Panel on Integrated Guidelines for Cardiovascular Health and Risk Reduction in Children and Adolescents. Pediatrics 2011;128:S213 2. NCEP Expert Panel. Circulation 2004;110:227 Current Interpretive Data was last revised on 2018. Triglycerides 155(H) <=149 mg/dL [facility] Comment: Interpretive Data Ages < or = 9 years Acceptable: <75 mg/dL Borderline high: 75-99 mg/dL High: >or= 100 mg/dL Ages 10 to 20 years Acceptable: <90 mg/dL Borderline high: 90-129 mg/dL High: >or= 130 mg/dL Ages > or = 20 years Desirable: <150 mg/dL Borderline high: 150-199 mg/dL High: 200-499 mg/dL Very high: >or= 499 mg/dL Literature References: 1. Expert Panel on Integrated Guidelines for Cardiovascular Health and Risk Reduction in Children and Adolescents. Pediatrics 2011;128:S213 2. NCEP Expert Panel. Circulation 2004;110:227 Current Interpretive Data was last revised on 2018. HDL 33(L) >=40 mg/dL [facility] Comment: Interpretive Data Ages < or = 19 years Acceptable: >45 mg/dL Borderline low: 40-45 mg/dL Low: <40 mg/dL Ages > or = 20 years Desirable: >or= 60 mg/dL Low: <40 mg/dL Literature References: 1. Expert Panel on Integrated Guidelines for Cardiovascular Health and Risk Reduction in Children and Adolescents. Pediatrics 2011;128:S213 2. NCEP Expert Panel. Circulation 2004;110:227 Current Interpretive Data was last revised on 2018. LDL, calculated 62 <=129 mg/dL [facility] Comment: Interpretive Data Ages < or = 19 years Acceptable: <110 mg/dL Borderline high: 110-129 mg/dL High: >or= 130 mg/dL Ages > or = 20 years Optimal: <100 mg/dL Near optimal: 100-129 mg/dL Borderline high: 130-159 mg/dL High: >160 mg/dL Calculated using the Toi LDL-C estimating equation. This equation was implemented on 2024. Prior to this date LDL-C was estimated using the Friedewald equation. Literature References: 1. Expert Panel on Integrated Guidelines for Cardiovascular Health and Risk Reduction in Children and Adolescents. Pediatrics 2011;128:S213 2. NCEP Expert Panel. Circulation 2004;110:227 3. Toi Barajas al. WENDY Cardiol. 2020 March 09;5(5):540-548. doi: [email or web address] Current Interpretive Data was last revised on 2024. Non-HDL Cholesterol 89 mg/dL [facility] Comment: Interpretive Data Ages < or = 19 years Acceptable: <120 mg/dL Borderline high: 120-144 mg/dL High: >145 mg/dL Ages > or = 20 years When triglycerides are >200 mg/dL, Non-HDL cholesterol is a secondary target of therapy with treatment goals that are 30 mg/dL greater than the LDL cholesterol target. Literature References: 1. Expert Panel on Integrated Guidelines for Cardiovascular Health and Risk Reduction in Children and Adolescents. Pediatrics 2011;128:S213 2. NCEP Expert Panel. Circulation 2004;110:227 Current Interpretive Data was last revised on 2018. Chol/HDL ratio 4 [facility] Blood 05/18/2025 11:0 5 PM CDT 05/18/2025 11:29 PM CDT us Lidya Faulkner MD LAB BLOOD ORDERABLES Final Re sult Performing Organization Address City/[facility]/ZIP Co de Phone Number [facility] Department [place] [address] * Hepatitis C antibody Blood (12/02/2024 8:40 PM ICT BUSINESS DEVELOPMENT MANAGER) Hep C Ab Nonreactive Nonreactive Comment:Antibodies to HCV no t detected. Does NOT exclude the possibility of recent exposure to HCV. 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 12/03/23 12/03/2023 01/01/2024 Insurance [facility] Advance Directives For more information, please contact: [phone] Documents on File Type Date Recorded 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 Expl anation ADVANCE DIRECTIVE 07/28/2024 4:37 PM POWER OF PRIVATE BANKER-MEDICAL ADVANCE DIRECTIVE 07/26/2024 3:21 PM Malia Dickson POWER OF PRIVATE BANKER-MEDICAL * Full Code (Latest Code Status on File) Date Activated Date Inactivated Comments 10/21/2025 6:45 PM 10/22/2025 6:41 PM * Full Code Date Activated Date Inactivated Comments 05/19/2025 9:42 AM 05/26/2025 8:08 PM * Full Code Date Activated Date Inactivated Comments 04/26/2025 10:11 AM 04/27/2025 4:47 AM * Full Code Date Activated Date Inactivated Comments 12/02/2024 12:50 PM 12/12/2024 7:29 PM * Full Code Date Activated Date Inactivated Comments 07/21/2024 3:42 PM 07/26/2024 7:36 PM Healthcare Agents on File Name Relationship Healthcare Agent Relationshi p Communication Malia Dickson Spouse Health Care Agent Cheo Dickson Son [facility] Ca re Agent 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
--- OUTSIDE RECORDS SUMMARY | 2025-10-30 14:23 | XMS_ITS | Clinical Summary ---
Author Organization [facility] Address [address] [place] [address] Phone Care Team Providers Care Transfer Driver Name Role Phone MARIELLA YANEZ, JOSE Barrientos Primary Care Provider [phone] JOSELIN PACHECO MD Unavailable [phone] Reason for Visit and Chief Complaint referred by shira kelly - The Chief Complaint is: pt here today for back pain that radiates down his right side/leg. Pt has tried PT about 6 months ago, no relief. Pt has tried injections in December and he states he is not willing to try that again. Injections done at [facility]. denies any previous PM. imaging done at [facility] Plan of Treatment Risk assessment completed and UDS collected for initial pain management visit to determine opioid candidacy and risk. Urine sample sent for confirmation via LCMS when appropriate. - Last Documented On 07/25/2019 9:12AM ; [facility] Assessments Includes: Assessments from this encounter Findings - Diabetic peripheral neuropathy [E13.40 - Other specified diabetes mellitus with diabetic neuropathy unspecified] - Last Documented On 07/25/2019 9:12AM ; [facility] - Sacroiliitis [M46.1 - Sacroiliitis not elsewhere classified] - Last Documented On 07/25/2019 9:12AM ; [facility] - Lumbar radiculopathy [M54.16 - Radiculopathy lumbar region] - Last Documented On 07/25/2019 9:12AM ; [facility] - Myalgia [M79.18 - Myalgia other site] - Last Documented On 07/25/2019 9:12AM ; [facility] - Chronic pain syndrome [G89.4 - Chronic pain syndrome] - Last Documented On 07/25/2019 9:12AM ; [facility] - 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 [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 - [facility] (current) use of opiate analgesic] - Last Documented On 07/25/2019 9:12AM ; [facility] Medical Equipment - Implanted Devices Includes: Current Devices No Medical Equipment Recorded Medications Includes: Medications discussed during this encounter and other current Medications Current Medications (continue as prescribed) Pregabalin 150 MG Oral Capsule 10/11/2021 Provider: SUZE MARTINEZ Diagnosis: Ot diabetes del litus with diabetic neuropathy, unspecified 1 CAPSULE TWO TIMES A DAY Last Documented On 1 10:44AM By SUZE REZA ; [facility] Sertraline HCl 100 MG Oral Tablet 07/21/2019 Provide r: Diagnosis: Last Documented On 9 3:11PM By Olga FISCHER ; [facility] Losartan Potassium 100 MG Oral Tablet 07/21/2019 Pro vider: Diagnosis: Last Documented On 9 3:11PM By Olga FISCHER ; [facility] Gabapentin 300 MG Oral Capsule 07/21/2019 Provider: Diagnosis: Last Documented On 9 3:11PM By Olga FISCHER ; [facility] Naproxen 500 MG Oral Tablet 07/21/2019 Provider: Diagnosis: Last Documented On 9 3:11PM By Olga FISCHER ; [facility] hydroCHLOROthiazide 25 MG Oral Tablet 07/21/2019 Pro vider: Diagnosis: Last Documented On 9 3:12PM By Olga FISCHER ; [facility] Metoprolol Tartrate 100 MG Oral Tablet 07/21/2019 Pr ovider: Diagnosis: Last Documented On 9 3:12PM By Olga FISCHER ; [facility] Medications Administered Includes: Administered Medications from this encounter No Administered Medications Recorded Vital Signs Includes: Vital Signs from this encounter Vital Name 07/21/2019 03:14P Blood Pressure Sitting R 122/80 BP Cuff Size Regular Pulse Rate-Sitting (bpm) 76 Pulse Rhythm Regular Respiration Rate (breaths/min) 18 Weight (lb) 252 Pain Level 9 Last Documented: On 07/21/2019 3:15PM ; [facility] Results Includes: Results discussed during this encounter Drugs of abuse screen [facility] Or[facility] by [facility] Collected: Reported: 07/21/2019 16:04 Last Documented On 9 4:04PM ; [facility] Reviewed on 07/21/2019; All test results are final unless otherwise noted. Internal QC Acceptable YES N (Normal) Last Documented On 9 4:04PM ; [facility] Lot # & Exp. Date [id number] EXP 03/28 N (Normal) Last Documented On 9 4:04PM ; [facility] Amphetamines NEG (NEG) N (Normal) Last Documented On 9 4:04PM ; [facility] Barbiturates NEG (neg) N (Normal) Last Documented On 9 4:04PM ; [facility] Benzodiazepines NEG (neg) N (Normal) Last Documented On 9 4:04PM ; [facility] Cocaine NEG (neg) N (Normal) Last Documented On 9 4:04PM ; [facility] Ecstasy NEG (Neg) N (Normal) Last Documented On 9 4:04PM ; [facility] Methamphetamines NEG (neg) N (Normal) Last Documented On 9 4:04PM ; [facility] Methadone NEG (Neg) N (Normal) Last Documented On 9 4:04PM ; [facility] Morphine POS (Neg) A (Abnormal) Last Documented On 9 4:04PM ; [facility] Oxycodone NEG (Neg) N (Normal) Last Documented On 9 4:04PM ; [facility] Phencyclidine NEG (NEG) N (Normal) Last Documented On 9 4:04PM ; [facility] TCA/Tricyclic Antidepressants NEG (neg) N (Normal) Last Documented On 9 4:04PM ; [facility] Cannabis NEG (neg) N (Normal) Last Documented On 9 4:04PM ; [facility] History of Present Illness Includes: History of Present Illness from this encounter HPI VILLA FREEMAN is a 38 year old male. Patient presents for evaluation and treatment. He complains of chronic low back pain with pain into the right posterior thigh. Pain has been present since 2011, progressively worsening. He also suffers from diabetic neuropathy. He was seen by a surgeon at [facility] who recommended injections. These were painful and did not help. He finished therapy about 4 months ago, stopped due to increase pain. He does try to perform home stretches. Hydrocodone has been given by PCP, but they no longer will fill medications. His last refill was 2-3 days ago. He is taking two per day with benefit, a decrease from 4/day at one time. Gabapentin 600mg BID helps to some degree. He is also on sertraline for depression and naproxen twice per day. No imaging or records are available today to review. - Medication list reviewed with patient - Medication reconciliation performed - Prescription Drug Monitoring Program website checked. 07/19/19 - Last dose of medication? thursday Social History Description Last Updated Currently 07/21/2019 Last Documented On 9 9:12AM ; [facility] No consumption of alcohol 07/21/2019 Last Documented On 9 9:12AM ; [facility] Not using drugs 07/21/2019 Last Documented On 9 9:12AM ; [facility] Tobacco use 07/21/2019 Last Documented On 9 9:12AM ; [facility] Smoking Status Unknown Procedures and Surgical History Includes: Procedures from this encounter Procedures Code Diagnosis Performing Provider Service L ocation Service Date education and instructions provided Last Documented On 9 3:58PM ; [facility] Medical History Includes: Medical History addressed during this encounter Description Last Updated History of arthritis 07/21/2019 Last Documented On 9 9:12AM ; [facility] History of diabetes mellitus 07/21/2019 Last Documented On 9 9:12AM ; [facility] Family History Includes: Family History addressed during this encounter Description Last Updated Father LUNG CANCER 07/21/2019 Last Documented On 9 9:12AM ; [facility] Spouse BLADDER FISTULA ~DIVERTICULITIS 0 07/21/2019 Last Documented On 9 9:12AM ; [facility] Review of Systems Includes: Review of Systems from this encounter Systemic: No fever, no chills, and no recent weight change. Head: No headache. Cardiovascular: No chest pain or discomfort. Pulmonary: No dyspnea. Gastrointestinal: No nausea and no vomiting. Genitourinary: No dysuria. Endocrine: Muscle weakness. Hematologic: No tendency for easy bruising. Musculoskeletal: Lower back pain and muscle aches. Neurological: No dizziness, no vertigo, and no motor disturbances. Numbness. Psychological: Anxiety. No depression and no sleep apnea. Skin: No rash. Mental Status Includes: Mental Status from this encounter Description Oriented to time, place, and person Anxiety Functional Status Includes: Functional Status from this encounter No Functional Status Recorded Physical Exam Includes: Physical Exam from this encounter Allergies Includes: Active Allergies Substance Type Reaction Onset Date Resolved Date Statu s traMADol HCl Allergy 07/21/2019 Active Last Documented On 1 9:56AM ; [facility] Encounters Encounter Provider Location Date Check-In Time Check-Out Time Diagnosis PAIN MANAGEMENT NEW CONSULT SUZE [facility]- 07/21/20 19 3:15PM 4:00PM Sacroiliitis,L umbar Radiculopathy, Myalgia,Diabet es Mellitus Diabetic Peripheral Neuropathy,Chr onic Pain Syndrome,Chcf Use of Opiate Analgesic Insurance Includes: Active Insurance Policies Plan Name Member ID Group # Subscriber Relationship Effect brice Dates - [facility] [id number] VILLA Ryder Clinical Notes Includes: Clinical Notes from this encounter No Clinical Notes Recorded
--- OUTSIDE RECORDS SUMMARY | 2025-10-30 14:23 | XMS_ITS | Encounter Summary ---
Author Organization [facility] Address [address] [place] [address] Care Team Providers Care Senior Quality Assurance Engineer Name Role Phone Aniceto Olivera MD Unavailable Miscellaneous, Not In File Unavailable Unava Masha Kelley ROTOR BALANCER Primary Care Provider [phone] Keon Smith DPM Unavailable [phone] Encounter Details Date Type Department Care Team (Late st Contact Info) Description 01/25/2025 Telephone [facility] Radiology [address] [place] [address] Tommy Cedeno RN Social History Tobacco Use Types Packs/Day Years Used Date Smoking Tobacco: Former Cigarettes 1.5 2.1 S tarted: 10/08/2023 Passive Smoke Exposure: Past Smokeless Tobacco: Never [facility] Utilities Answer Date Recorded In the past 12 months has [employer] electric, gas, oil, or water company threatened [...] week 12/03/2024 How often do you attend [facility] or rastafari services? More than 4 times per year 12/03/2024 Do you belong to any clubs o r organizations such as confucianist groups, unions, fraternal or athletic groups, or [...] Date Recorded PHQ-2 Total Score 0 12/03/2024 [facility] - Occupational Stress [...] place to sleep or slept in a halfway (including now)? No 11/25/2023 Housing Stability Vital Sign Answer Anthony e Recorded In the last 12 months, was t here a time when you were not able to pay the mortgage or rent on time? No 12/03/2024 In the past 12 months, how m any times have you moved where you were living? 0 12/03/2024 At any time in the past 12 m [facility], were you homeless or living in a halfway (including now)? No 12/03/2024 Personal Safety Answer Date Recorded Have you ever been in or are you currently in a harmful physical or emotional relationship or is someone making you feel afraid or unsafe? 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 Gender Identity Not on file Sexual Orientation Not on file documented as of this encounter Miscellaneous Notes * Telephone Encounter - Tommy Cedeno RN - 01/25/2025 4:26 PM CDT documented in this encounter Plan of Treatment Scheduled Procedures Name Priority Associated Diagnoses Date/Ti me ESOPHAGOGASTRODUODENOSCOPY Open Access Weight loss Nausea and vomiting, unspecified vomiting type documented as of this encounter Visit Diagnoses Not on filedocumented in this encounter Additional Health Concerns Infection Onset Date Last Indicated Resolved Time 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
--- OUTSIDE RECORDS SUMMARY | 2025-10-30 14:23 | XMS_ITS | Clinical Summary ---
Author Organization [facility] Address [address] [place] [id number] Phone Care Team Providers Care Telephone Installer Name Role Phone MARIELLA YANEZ, JOSE Barrientos Primary Care Provider [phone] TRAA YANEZ, JOSELIN Wells Unavailable [phone] Reason for Visit and Chief Complaint The Chief Complaint is: REFERRED BY SEJAL CASTREJON FOR PERIPHERAL NEUROPATHY Plan of Treatment No Plan of Treatment Recorded Assessments Includes: Assessments from this encounter Findings - Diabetic peripheral neuropathy [E13.40 - Other specified diabetes mellitus with diabetic neuropathy, unspecified] - Last Documented On 10/15/2021 4:55PM ; [facility] - Sacroiliitis [M46.1 - Sacroiliitis, not elsewhere classified] - Last Documented On 10/15/2021 4:55PM ; [facility] - Lumbar disc degeneration [M51.36 - Other intervertebral disc degeneration, lumbar region] - Last Documented On 10/15/2021 4:55PM ; [facility] - Bulging lumbar disc [M51.26 - Other intervertebral disc displacement, lumbar region] - Last Documented On 10/15/2021 4:55PM ; [facility] - Myalgia [M79.18 - Myalgia, other site] - Last Documented On 10/15/2021 4:55PM ; [facility] - Chronic pain syndrome [G89.4 - Chronic pain syndrome] - Last Documented On 10/15/2021 4:55PM ; [facility] Medical Equipment - Implanted Devices Includes: Current Devices No Medical Equipment Recorded Medications Includes: Medications discussed during this encounter and other current Medications Discontinued / Stopped on this date SUZE ACEVES-EMIL on 07/25/2019 Gabapentin 600 MG Oral Tablet Provider: SUZEAlvarado REZA Diagnosis: Oth diabetes del litus with diabetic neuropathy, unspecified Last Documented On 10/11/2021 9:56AM By Darya FISCHER ; [facility] HYDROcodone-Acetaminophen 10-325 MG Oral Tablet Provider: Diagnosis: Last Documented On 10/11/2021 9:55AM By Darya FISCHER ; [facility] New / Renewed during this visit SUZE REZA on 10/11/2021 Pregabalin 150 MG Oral Capsule Provider: SUZE REZA 30 day supply: 60 capsule, 1 refills Diagnosis: Oth diabetes mellitus with diabetic neuropathy, unspecified 1 CAPSULE TWO TIMES A DAY Pharmacy: [facility] ([facility] - [address] , [place], [phone] - Last Documented On 10:44AM By SUZE REZA ; [facility] Current Medications (continue as prescribed) Sertraline HCl 100 MG Oral Tablet 07/21/2019 Provide r: Diagnosis: Last Documented On 9 3:11PM By Olga FISCHER ; [facility] Losartan Potassium 100 MG Oral Tablet 07/21/2019 Pro vider: Diagnosis: Last Documented On 9 3:11PM By Olga FISCHER ; [facility] Gabapentin 300 MG Oral Capsule 07/21/2019 Provider: Diagnosis: Last Documented On 9 3:11PM By Olga FISCHER ; [facility] Naproxen 500 MG Oral Tablet 07/21/2019 Provider: Diagnosis: Last Documented On 9 3:11PM By Olga FISCHER ; [facility] hydroCHLOROthiazide 25 MG Oral Tablet 07/21/2019 Pro vider: Diagnosis: Last Documented On 9 3:12PM By Olga FISCHER ; [facility] Metoprolol Tartrate 100 MG Oral Tablet 07/21/2019 Pr ovider: Diagnosis: Last Documented On 9 3:12PM By Olga FISCHER ; [facility] Medications Administered Includes: Administered Medications from this encounter No Administered Medications Recorded Vital Signs Includes: Vital Signs from this encounter Vital Name 10/11/2021 09:51A Blood Pressure Sitting L 110/80 Pulse Rate-Sitting (bpm) 95 Temp-Tympanic (F) 96.6 Height (in) 70 Weight (lb) 246 Body Mass Index (kg/m2) 35.3 Body Surface Area (m2) 2.3 Pain Level 8 Oxygen Saturation (%) 98 Last Documented: On 10/11/2021 9:54AM ; [facility] Results Includes: Results discussed during this encounter No Results Recorded For Specified Dates History of Present Illness Includes: History of Present Illness from this encounter HPI - Allergy list reviewed - Problem list reviewed - Medication reconciliation performed - Medication list reviewed - Prescription Drug Monitoring Program website checked. - Last dose of medication? - Pain is continuous - Pain aggravated when sleeping - Primary pain location My lower back and feet - Primary pain duration All the time - Secondary pain duration Stabbing - Secondary pain location My feet - Pain is throbbing - Pain is shooting - Pain is described as numbness - Pain is tight - Pain is like pins/needles - Relieved by repositioning - Relieved by leaning forward - Pain aggravated getting in/out of car - Pain aggravated going down stairs - Pain aggravated lying down - Pain aggravated standing - Pain aggravated by walking - Pain aggravated lifting - Pain aggravated bending - Pain radiating to both shoulders - Pain radiates in both feet Discussion: Patient is a 40-year-old male referred for evaluation and treatment. He describes chronic low back pain for 5+ years. Pain radiates to the right posterior thigh with numbness and tingling. Pain is worse with bouncing while driving, sitting, walking. There is improvement with ice, heat, massage, position and change. Therapy last done in 01/2020 at [facility], this increased symptoms. He does home exercises. Patient also suffers from diabetic neuropathy bilateral feet, mainly the toes. A1C 10.5, this is a decrease from over 11. Gabapentin 600mg bid, helps some. This pain is worse at night. Higher dose of gabapentin didn't offer additional relief and caused side effects. Diclofenac/Naproxen alternated every other week, but doesn't fell one helps more than the other. Recommended sticking with diclofenac. We will start therapy, get updated imaging and convert to lyrica. He may benefit from injections in the future. May also benefit from cymalta in place of zoloft. Imaging: All relevant imaging available was personally reviewed with the patient today with the following tests and results noted: CTL spine 07/21/19: small posterior disc osteophyte complex present L3-4, L4-5 and L5-S1. MRI L spine 07/21/19: central and right paracentral disc bulge with mild displacement of the nerve root at L5-S1. At L4-5 posterior annular tear with small central disc protrusion. Ligamentum flavum hypertrophy at L3-4. Social History Description Last Updated [PHQ-2] Patient Health Questionnaire 2 i tem total score: 15 (Scale: 0-6) 10/11/2021 Last Documented On 1 4:55PM ; [facility] Difficulty walking 10/11/2021 Last Documented On 1 4:55PM ; [facility] No consumption of alcohol 10/11/2021 Last Documented On 1 4:55PM ; [facility] Not using drugs 10/11/2021 Last Documented On 1 4:55PM ; [facility] Smoking packs of cigarettes per day 1 Last Documented On 1 4:55PM ; [facility] Currently 07/21/2019 Last Documented On 1 9:49AM ; [facility] Tobacco use 07/21/2019 Last Documented On 1 9:49AM ; [facility] Smoking Status Unknown Procedures and Surgical History Includes: Procedures from this encounter Procedures Code Diagnosis Performing Provider Service L ocation Service Date use of tobacco assessment performed 1000F Last Documented On 1 10:09AM ; [facility] review of medications documented 1160F Last Documented On 1 10:09AM ; [facility] Clinical summary provided to patient Last Documented On 1 10:09AM ; [facility] Surgical History Last Updated No Pacemaker 10/11/2021 Last Documented On 1 4:55PM ; [facility] Medical History Includes: Medical History addressed during this encounter Description Last Updated CT/MRI Lower back mri in 2017 10/11/2021 Last Documented On 1 4:55PM ; [facility] Currently wearing eyeglasses 10/11/2021 Last Documented On 1 4:55PM ; [facility] Injection/Nerve blocks 10/11/2021 Last Documented On 1 4:55PM ; [facility] No Pain Pump 10/11/2021 Last Documented On 1 4:55PM ; [facility] No Spinal cord stimulator 10/11/2021 Last Documented On 1 4:55PM ; [facility] Please list all surgeries: Laser 021 Last Documented On 1 4:55PM ; [facility] Uses a Knee Brace 10/11/2021 Last Documented On 1 4:55PM ; [facility] Family History Includes: Family History addressed during this encounter Description Last Updated Family history of ischemic heart disease 10/11/2021 Last Documented On 1 4:55PM ; [facility] Maternal history of Arthritis 10/11/2021 Last Documented On 1 4:55PM ; [facility] Maternal history of stroke/paralysis 01/2021 Last Documented On 1 4:55PM ; [facility] Review of Systems Includes: Review of Systems from this encounter Systemic: No systemic symptoms other than noted. Head: No head symptoms other then noted. Neck: No neck pain. Otolaryngeal: No otolaryngeal symptoms other than noted. Cardiovascular: No cardiovascular symptoms other than noted. Pulmonary: No pulmonary symptoms other than noted. Wheezing. Gastrointestinal: No gastrointestinal symptoms other than noted. Genitourinary: No genitourinary symptoms other than noted. Endocrine: No endocrine symptoms other than noted. Hematologic: No easy bleeding and no tendency for easy bruising. Musculoskeletal: No musculoskeletal symptoms other than noted. Neurological: No neurological symptoms other than noted and no fainting passing out with needles or medical procedures. Falls. Psychological: No psychological symptoms other than noted. Skin: No skin symptoms other than noted. Mental Status Includes: Mental Status from this encounter No Mental Status Recorded Functional Status Includes: Functional Status from this encounter No Functional Status Recorded Physical Exam Includes: Physical Exam from this encounter Allergies Includes: Active Allergies Substance Type Reaction Onset Date Resolved Date Statu s traMADol HCl Allergy 07/21/2019 Active Last Documented On 1 9:56AM ; [facility] Encounters Encounter Provider Location Date Check-In Time Check-Out Time Diagnosis PAIN MANAGEMENT NEW CONSULT ESTABLISHED SUZE [facility]VES[facility] 021 9:44AM 10:34AM Chronic Pain Syndrome,Sacroili itis,Intervertebr al Disc Degeneration - Lumbar,Bulging Intervertebral Disc Lumbar,Myalgia , Other Site (M79.18),Diabetes Mellitus Diabetic Peripheral Neuropathy Insurance Includes: Active Insurance Policies Plan Name Member ID Group # Subscriber Relationship Effect brice Dates 1 - [facility] [id number] VILLA Ryder Clinical Notes Includes: Clinical Notes from this encounter No Clinical Notes Recorded
--- OUTSIDE RECORDS SUMMARY | 2025-10-30 14:23 | XMS_ITS ---
Care Plan - [facility] Created on: October 30, 2025 LYDIA VILLA Childers : 1980 Sex: Male Author Organization [facility] Address [address] [place] [id number] Phone Care Team Providers Care Dandy Tender Name Role Phone MARIELLA YANEZ, JOSE Barrientos Primary Care Provider [phone] TARA YANEZ, JOSELIN Wells Unavailable [phone]
--- OUTSIDE RECORDS SUMMARY | 2025-10-30 14:23 | XMS_ITS ---
Author Organization [facility] Address [address] [place] [id number] Phone Care Team Providers Care Package Handler Name Role Phone MARIELLA YANEZ, JOSE Barrientos Primary Care Provider [phone] JOSELIN PACHECO MD Unavailable [phone] Plan of Treatment No Plan of Treatment Recorded Assessments Includes: Assessments for all patient encounters Findings Encounter Date Bulging lumbar disc PAIN MANAGEMENT NEW CONSULT ESTABLISHED with SUZE ACEVES-BC 10/11/2021 Last Documented On 1 4:55PM ; [facility] Chronic pain syndrome PAIN MANAGEMENT NE W CONSULT ESTABLISHED with SUZE PEREZ ANP-BC 10/11/2021 Last Documented On 1 4:55PM ; [facility] Diabetic peripheral neuropathy PAIN JAZMINE GEMENT NEW CONSULT ESTABLISHED with SUZEAlvarado PEREZ ANP-BC 10/11/2021 Last Documented On 1 4:55PM ; [facility] Lumbar disc degeneration PAIN MANAGEMENT NEW CONSULT ESTABLISHED with SUZETAMIR PEREZ ANP-BC 10/11/2021 Last Documented On 1 4:55PM ; [facility] Myalgia PAIN MANAGEMENT NEW CONSULT ESTABLISHED with SUZE Iliana PEREZ ANP-BC 10/11/2021 Last Documented On 1 4:55PM ; [facility] Sacroiliitis PAIN MANAGEMENT NEW CONSULT ESTABLISHED with SUZE Iliana PEREZ ANP-BC 10/11/2021 Last Documented On 1 4:55PM ; [facility] Chronic pain syndrome PAIN MANAGEMENT NE W CONSULT with SUZE PEREZ ANP-BC 07/21/2019 Last Documented On 9 9:12AM ; [facility] Diabetic peripheral neuropathy PAIN JAZMINE G[facility] Last Documented On 9 9:12AM ; [facility] half-way use of opiate analgesic PAIN M ANAGEMENT [facility] Last Documented On 9 9:12AM ; [facility] Lumbar radiculopathy PAIN MANA[facility]EMENT [facility] Last Documented On 9 9:12AM ; [facility] Myalgia PAIN MANAGEMENT [facility] Last Documented On 9 9:12AM ; [facility] Sacroiliitis PAIN MANAGEMENT [facility]2019 Last Documented On 9 9:12AM ; [facility] Medical Equipment - Implanted Devices Includes: Current and historical Devices No Medical Equipment Recorded Medications Includes: Current and historical Medications Current Medications (continue as prescribed) Pregabalin 150 MG Oral Capsule 10/11/2021 Provider: SUZE MARTINEZ Diagnosis: Oth diabetes del litus with diabetic neuropathy, unspecified 1 CAPSULE TWO TIMES A DAY Last Documented On 1 10:44AM [facility] ; [facility] Sertraline HCl 100 MG Oral Tablet 07/21/2019 Provide r: Diagnosis: Last Documented On 9 3:11PM By Olga FISCHER ; [facility] Losartan Potassium 100 MG Oral Tablet 07/21/2019 Pro vider: Diagnosis: Last Documented On 9 3:11PM By Olga FISCHER ; [facility] Gabapentin 300 MG Oral Capsule 07/21/2019 Provider: Diagnosis: Last Documented On 9 3:11PM By Olga FISCHER ; [facility] Naproxen 500 MG Oral Tablet 07/21/2019 Provider: Diagnosis: Last Documented On 9 3:11PM By Olga FISCHER ; [facility] hydroCHLOROthiazide 25 MG Oral Tablet 07/21/2019 Pro vider: Diagnosis: Last Documented On 9 3:12PM By Olga FISCHER ; [facility] Metoprolol Tartrate 100 MG Oral Tablet 07/21/2019 Pr ovider: Diagnosis: Last Documented On 9 3:12PM By Olga FISCHER ; [facility] Past Medications on file Gabapentin 600 MG Oral Tablet 07/25/2019 - 10/11/2021 Provider: SUZE PEREZ [facility]- Diagnosis: Oth diabetes del litus with diabetic neuropathy, unspecified One tablet three times a day Last Documented On 10/11/2021 9:56AM By Darya FISCHER ; [facility] HYDROcodone-Acetaminophen 10-325 MG Oral Tablet 07/21/2019 - 10/11/2021 Provider: Diagnosis: Last Documented On 10/11/2021 9:55AM By Darya FISCHER ; [facility] Medications Administered Includes: Administered Medications in patient's chart No Administered Medications Recorded Results Includes: Results from 10/30/2024 through 10/30/2025 No Results Recorded For Specified Dates History of Present Illness History of Present Illness not supported for this document type No History of Present Illness Recorded Social History Description Last Updated [PHQ-2] Patient Health Questionnaire 2 i tem total score: 15 (Scale: 0-6) 10/11/2021 Last Documented On 1 4:55PM ; [facility] Difficulty walking 10/11/2021 Last Documented On 1 4:55PM ; [facility] No consumption of alcohol 10/11/2021 Last Documented On 1 4:55PM ; [facility] Not using drugs 10/11/2021 Last Documented On 1 4:55PM ; [facility] Smoking packs of cigarettes per day 1 Last Documented On 1 4:55PM ; [facility] Currently 07/21/2019 Last Documented On 9 9:12AM ; [facility] Tobacco use 07/21/2019 Last Documented On 9 9:12AM ; [facility] Smoking Status Unknown Procedures and Surgical History Surgical History Last Updated No Pacemaker 10/11/2021 Last Documented On 1 4:55PM ; [facility] Medical History Includes: Medical History in patient's chart Description Last Updated CT/MRI Lower back mri in 2017 10/11/2021 Last Documented On 1 4:55PM ; [facility] Currently wearing eyeglasses 10/11/2021 Last Documented On 1 4:55PM ; [facility] Injection/Nerve blocks 10/11/2021 Last Documented On 1 4:55PM ; [facility] No Pain Pump 10/11/2021 Last Documented On 1 4:55PM ; [facility] No Spinal cord stimulator 10/11/2021 Last Documented On 1 4:55PM ; [facility] Please list all surgeries: Laser 021 Last Documented On 1 4:55PM ; [facility] Uses a Knee Brace 10/11/2021 Last Documented On 1 4:55PM ; [facility] History of arthritis 07/21/2019 Last Documented On 9 9:12AM ; [facility] History of diabetes mellitus 07/21/2019 Last Documented On 9 9:12AM ; [facility] Family History Includes: Family History in patient's chart Description Last Updated Family history of ischemic heart disease 10/11/2021 Last Documented On 1 4:55PM ; [facility] Maternal history of Arthritis 10/11/2021 Last Documented On 1 4:55PM ; [facility] Maternal history of stroke/paralysis 01/2021 Last Documented On 1 4:55PM ; [facility] Father LUNG CANCER 07/21/2019 Last Documented On 9 9:12AM ; [facility] Spouse BLADDER FISTULA ~DIVERTICULITIS 0 07/21/2019 Last Documented On 9 9:12AM ; [facility] Review of Systems Review of Systems not supported for this document type No Review of Systems Recorded Mental Status No Mental Status Recorded Functional Status No Functional Status Recorded Physical Exam Physical Exam not supported for this document type No Physical Exam Recorded Allergies Includes: Active, inactive, and resolved Allergies Substance Type Reaction Onset Date Resolved Date Statu s traMADol HCl Allergy 07/21/2019 Active Last Documented On 1 9:56AM ; [facility] Insurance Includes: Active Insurance Policies Plan Name Member ID Group # Subscriber Relationship Effect brice Dates 1 - [facility] [id number] VILLA Ryder Clinical Notes Includes: Signed Clinical Notes starting from 11/28/2022 No Clinical Notes Recorded
--- OUTSIDE RECORDS SUMMARY | 2025-10-30 14:23 | XMS_ITS | Data Portability ---
Author Organization [facility], Main Office Address [address] [place] [address] Assessment Encounter Date Assessment Date Assessment LastModified by Organization Details LastModified Time 06/10/2023 06/10/2023 This note is dictated and transcribed by [employer]. Home Care Rn variances may occur. Despite proofreading, typographical errors may occur. Not available 06/10/2023 18:00:03 09/09/2023 09/09/2023 This note is dictated and transcribed by [employer]. Home Care Rn variances may occur. Despite proofreading, typographical errors may occur. Not available 09/17/2023 12:37:06 09/23/2023 09/23/2023 This note is dictated and transcribed by [employer]. Home Care Rn variances may occur. Despite proofreading, typographical errors [...] preta tion No observ ation record ed. [email or web address] [facility] [address], [place], [address], 09/02/2023 10:41:20 09/01/20 23 09/01/2023 imagi ng inter preta tion No observ ation record ed. [email or web address] [place] [address] [address], [place], [address], 09/02/2023 11:03:27 09/01/20 23 09/01/2023 imagi ng inter preta tion No observ ation record ed. [email or web address] [place] [address] [address], [place], [address], 09/02/2023 11:04:01 09/06/20 23 09/06/2023 CT, foot, w/ contr ast No observ ation record ed. [address] [facility], [place], [address], 03/22/2024 11:07:09 09/16/20 23 09/16/2023 XR, chest , 2 view No observ ation record ed. [email or web address] [address], [place], [address], 03/22/2024 11:17:18 09/17/20 23 09/17/2023 , [facility] ardio gram No observ ation record ed. [email or web address] [place], [place] [address]e [facility], [place], [address], 03/22/2024 11:17:28 09/17/20 23 09/17/2023 CT, chest + abdom en, w/ contr ast No observ ation record ed. [email or web address] [facility], [place], [address], 03/22/2024 11:17:49 09/19/20 23 09/18/2023 XR, chest , 1 view No observ ation record ed. [address] [facility], [place], [address], 03/22/2024 11:18:00 09/20/20 23 09/20/2023 XR, chest , 1 view No observ ation record ed. [email or web address] [place] [address] [address], [place], [address], 03/22/2024 11:18:18 09/28/20 23 09/28/2023 XR, chest No observ ation record ed. [address], [place], [address], 03/21/2024 15:02:57 09/28/20 23 09/28/2023 XR, chest No observ ation record ed. [address], [place], [address], 03/21/2024 15:03:06 09/28/20 23 09/28/2023 XR, abdom en No observ ation record ed. [address] [address], [place], [address], 03/21/2024 15:03:28 09/28/20 23 09/28/2023 , [facility] ardio gram No observ ation record ed. [address], [place], [address], 03/21/2024 15:03:44 09/28/20 23 09/28/2023 XR, chest , 1 view No observ ation record ed. [address] [facility], [place], [address], 03/21/2024 15:03:58 09/28/20 23 09/28/2023 CT, abdom en + pelvi s, w/o contr ast No observ ation record ed. [address], [place], [address], 03/21/2024 15:04:15 09/28/20 23 09/28/2023 XR, chest , 1 view No observ ation record ed. [address], [place], [address], 03/21/2024 15:04:27 09/28/20 23 09/28/2023 thora cente sis (PROC ) No observ ation record ed. [address] [facility], [place], [address], 03/21/2024 15:04:53 09/28/20 23 09/28/2023 XR, chest , 1 view No observ ation record ed. [address] [facility], [place], [address], 03/21/2024 15:05:02 09/28/20 23 09/28/2023 biops y, absce ss (PROC ) No observ ation record ed. [address] [address], [place], [address], 03/21/2024 15:07:20 03/27/20 25 03/27/2025 imagi ng inter preta tion No observ ation record ed. [address] [address], [place], [address], 08/24/2025 12:42:17 03/27/20 25 03/27/2025 imagi ng inter preta tion No observ ation record ed. [address] [address], [place], [address], 08/24/2025 12:42:28 03/28/20 25 03/27/2025 imagi ng inter preta tion No observ ation record ed. [address] [address], [place], [address], 08/24/2025 12:42:39 03/28/20 25 03/28/2025 imagi ng inter preta tion No observ ation record ed. [address] [address], [place], [address], 08/24/2025 12:45:36 Result Notes None recorded. Problems Name Problem SNOMED Code Status Onset Date Resolution Date Notes Provider Name and Address Organization Details Recorded Time Lumbar radiculopa thy 350121539 Active Not Available [facility] 4 01:06:03 Hyperchole sterolemia 93503601 Active Not Available [facility] 4 01:06:03 Adjustment disorder 18498768 Active Not Available [facility] 4 01:06:03 Spinal stenosis of lumbar region 76677863 Active Not Available [facility] 4 01:06:03 Abdominal pain 75294988 Active Not Available [facility] 4 01:06:04 Gastroesop hageal reflux disease 963439438 Active Not Available [facility] 4 01:06:04 Lumbar spondylosi s 490019416 Active Not Available [facility] 4 01:06:04 Shoulder joint pain 147327698 Active Not Available [facility] 4 01:06:04 Low back pain 541335894 Active Not Available [facility] 4 01:06:04 Cyst of skin 303466035 Active Not Available [facility] 4 01:06:04 Hypertrigl yceridemia 866481940 Active Not Available [facility] 4 01:06:04 Knee pain Active Not Available [facility] 4 01:06:04 Laceration - injury 707201128 Active Not Available [facility] 4 01:06:04 Type 2 diabetes mellitus without complicati on 022339763 Active Not Available [facility] 4 01:06:04 Bronchitis 72681332 Active Not Available [facility] 4 01:06:04 Blood in urine 49926528 Active Not Available [facility] 4 01:06:04 Vitamin D deficiency 70491675 Active Not Available [facility] 4 01:06:04 Depressive disorder 29758007 Active Not Available [facility] 4 01:06:04 Hypertensi ve disorder 83674444 Active Not Available [facility] 4 01:06:04 Disorder of rotator cuff 938838871 Active Not Available [facility] 4 01:06:04 Eczema 23586957 Active Not Available [facility] 4 01:06:04 Viral syndrome 476302391 Active Not Available [facility] 4 01:06:04 Pain of shoulder region 12620243 Active Not Available [facility] 4 01:06:04 Anxiety 75640761 Active Not Available [facility] 4 01:06:04 Cough 75462001 Active Not Available [facility] 4 01:06:04 Upper respirator y infection 02792890 Active Not Available [facility] 4 01:06:04 Hyperlipid emia 24188490 Active Not Available [facility] 4 01:06:04 Disorder of bursa of shoulder region 17503689 Active Not Available [facility] 4 01:06:04 Wheezing 11042795 Active Not Available [facility] 4 01:06:04 Pain of joint 98383258 Active Not Available [facility] 4 01:06:04 Pruritic rash 34976076 Active Not Available [facility] 4 01:06:04 Hypercalce shakira 95038274 Active Not Available [facility] 4 01:06:04 Muscle pain 13510742 Active Not Available [facility] 4 01:06:04 Diabetes mellitus 50297227 Active Not Available [facility] 4 01:06:04 Hyperglyce shakira 33989895 Active Not Available [facility] 4 01:06:04 Neck pain 11048403 Active Not Available [facility] 4 01:06:04 Skin lesion 15755385 Active Not Available [facility] 4 01:06:04 Kidney stone 86402400 Active Not Available [facility] 4 01:06:04 Neuropathy 858575627 Active 2016 Not Available [facility] 4 01:06:04 Misuses drugs 089856351 Active 2019 Not Available [facility] 4 01:06:04 Diabetic peripheral neuropathy 479537050 Active 2019 Not Available [facility] 4 01:06:04 Peripheral neuropathy due to type 2 diabetes mellitus 3732725796073 Active 2020 Not Available [facility] 4 01:06:03 Dry skin 55525600 Active 2020 Not Available [facility] 4 01:06:03 On examinatio n - skin fissures present Active 2020 Not Available [facility] 4 01:06:03 Foot pain 04639483 Active 2020 Not Available [facility] 4 01:06:04 Insomnia 967290014 Active 2022 Not Available [facility] 4 01:06:03 Hernia of anterior abdominal wall 823282072 Active 2022 Not Available [facility] 4 01:06:04 Ulcer of right foot due to type 2 diabetes mellitus 9519691832135 9102 Active 2022 Not Available [facility] 4 01:06:03 Diabetic foot ulcer 429106509 Active 2022 Not Available [facility] 4 01:06:04 Diabetic foot ulcer 326030830 Active 2022 Not Available [facility] 4 01:06:04 Hypokalemi a 20720522 Active 2022 Not Available [facility] 4 01:06:04 Pressure injury of sacral region of back 928186917 Active 2023 Uyen Vieyra MD [address], [place], [address] , [facility] 4 11:35:43 Problem Notes None recorded. Procedures Surgical History Date Name Laterality Status Provider Name and Address Organization Details Recorded Time 3 endoscopy completed Virginie Pascual LPN [facility] 11/06/2023 08:51:19 3 Wound Care-Podiatry completed Robert Bradshaw DPM [address], [place], [address], [facility] 09/23/2023 17:05:49 3 Wound Care-Podiatry completed Roebrt Bradshaw DPM [address], [place], [address], [facility] 09/23/2023 09:56:11 3 Wound Care-Podiatry completed Robert Bradshaw DPM [address], [address], [place], [address], [facility] 06/25/2023 09:17:02 3 Wound Care-Podiatry completed Robert Bradshaw DPM [address], [address], [place], [address], [facility] 06/10/2023 17:59:53 3 Wound Care-Podiatry completed Robert Bradshaw DPM [address], [place], [address], [facility] [employer] [facility] 06/03/2023 17:23:59 3 Wound Care-Podiatry completed Hillary Mo RN [facility] [facility] 05/27/2023 16:30:58 3 Wound Care-Podiatry completed Marilyn Beal RN [facility] [employer] [facility] 05/20/2023 17:17:29 3 Wound Care-Podiatry completed Hillary Mo RN [facility] [employer] [facility] 05/13/2023 15:56:55 3 Wound Care-Podiatry completed Hillary Mo RN [facility] [facility] 05/06/2023 17:40:57 3 Wound Care-Podiatry completed Marilyn Beal RN [facility] [facility] 04/22/2023 18:31:31 3 Wound Care-Podiatry completed Hillary Mo RN [facility] [facility] 04/15/2023 17:39:58 3 Wound Care-Podiatry completed Marilyn Beal RN [facility] [facility] 04/08/2023 16:50:43 3 Wound Care-Podiatry completed Hillary Mo RN [facility] 04/01/2023 16:25:29 3 Wound Care-Podiatry completed Robert Bradshaw DPM [address], [place], [address], [employer] [facility] 03/25/2023 17:33:03 3 Wound Care-Podiatry completed Robert Bradshaw DPM [address], [address], [place], [address], [facility] 03/18/2023 16:09:01 3 Wound Care-Podiatry completed Robert Bradshaw DPM [address], [place], [address], [employer] [facility] 03/18/2023 16:12:54 3 Wound Care-Podiatry completed Marilyn Beal RN [facility] [employer] [facility] 03/04/2023 16:15:08 3 Wound Care-Podiatry completed Robert Bradshaw DPM [address], [place], [address], [employer] [facility] 02/26/2023 17:54:08 3 Wound Care-Podiatry completed Marilyn Beal RN [facility] [facility] 02/19/2023 19:01:04 3 Wound Care-Podiatry completed Robert Bradshaw DPM [address], [place], [address], [employer] [facility] 02/18/2023 15:32:35 3 Wound Care-Podiatry completed Marilyn Beal RN [facility] 02/04/2023 15:49:06 Kidney Stones completed Not Available [facility] 01/07/2023 05:56:33 Imaging Results None recorded. Procedure Notes None recorded. Medical Equipment None Reported. Allergies Allergen ID Allergen Name Allergen Category Reaction Reaction Severity Criticality Documentation Date Start Date Code Code System Note Provider Name and Address Organization Details Recorded Time 96882 tramadol medicatio n Not available Not available Not available 01/07/2023 51056 RxNorm Not Available [facility] 3 06:09:31 Medications Name Sig Start Date [...] ml per neb x 1 08/09 completed [id number] Not Available Not Available Not Available ammonium [...] Not Available Not Available No t Available [employer] Ultra Test strips USE TO TEST BLOOD [...] injected right knee x 1 08/09 completed [facility] [id number] Not Available Not Available Not Available [...] Recorded Body height Body temperature Oxygen saturation Respiratory rate Heart rate Systolic And Diastolic Provider Name and Address Organization Details Last Updated DateTime 3 185.42 cm 98.2 [degF] 98 % 18 /min 65 /min 121/77 mm[Hg] Hillary Mo RN [facility] [employer] [facility] 3 17:01:47 Date Recorded Body height Heart rate Respiratory rate Body temperature Oxygen saturation Systolic And Diastolic Provider Name and Address Organization Details Last Updated DateTime 3 185.42 cm 89 /min 18 /min 98 [degF] 98 % 120/79 mm[Hg] Hillary Mo RN [facility] [employer] [facility] 3 17:36:27 Date Recorded Body height Body temperature Oxygen saturation Respiratory rate Heart rate Systolic And Diastolic Provider Name and Address Organization Details Last Updated DateTime 3 185.42 cm 98.2 [degF] 98 % 18 /min 84 /min 109/72 mm[Hg] Hillary Mo RN [facility] [employer] [facility] 3 16:31:17 Date Recorded Body height Heart rate Oxygen saturation Body temperature Systolic And Diastolic Provider Name and Address Organization Details Last Updated DateTime 3 185.42 cm 106 /min 97 % 97.7 [degF] 125/73 mm[Hg] Loi Rosen RN [place] [facility] 16:29:12 Social History Question Answer Notes LastModified by Organizat ion Details LastModified Time Tobacco Smoking Status Current Every Day Smoker Not Available [facility] 01/07/2023 05:54:40 What Is Your Level Of Caffeine Consumption? Occasional [id number] Information not available 01/07/2023 In The 14 Days Before Symptom Onset, Have You Had Close Contact With A Laboratory-confir med COVID-19 While That Case Was Ill? No [id number] Information not available 01/07/2023 In The 14 Days Before Symptom Onset, Have You Had Close Contact With A Person Who Is Under Investigation For COVID-19 While That Person Was Ill? No [id number].[id number] Information not available 01/07/2023 What Type Of Diet Are You Following? REGULAR [id number].[id number] Information not available 01/07/2023 Which Illicit Or Recreational Drugs Have You Used? NO [id number].[id number] 1267 Information not available 01/07/2023 At What Age Did You Start Smoking Tobacco? 12 MIGRATION.[id number] Information not available 01/07/2023 How Much Tobacco Do You Smoke? 1 PPW MIGRATION.[id number] 2887 Information not available 01/07/2023 How Many Years Have You Smoked Tobacco? 20 MIGRATION.657894 4518 Information not available 01/07/2023 Sex: Unknown Functional Status Question Answer Note LastModified by Organizat [employer] Details LastModified Time What is your level of alcohol consumption? Occasional [id number] Information not available 01/07/2023 Do you or have you ever used smokeless tobacco? Never used smokeless tobacco MIGRATION.[id number] 026 Information not available 01/07/2023 Do you or have you ever used e-cigarettes or vape? Never used electronic cigarettes MIGRATION.[id number] 026 Information not available 01/07/2023 What is your exercise level? Occasional MIGRATION.[id number] 026 Information not available 01/07/2023 Mental Status None recorded. Family History Nothing Reported Notes:Diabetes, [place], CVA Medical History Condition Response BACK INJECTIONS N ALLERGIES/HAYFEVER N LUNG DISEASE/DISORDER N ESRD N HISTORY OF DRUG ABUSE N INSOMNIA Y RADIATION / CHEMOTHERAPY N COPD N HIGH CHOLESTEROL / HYPERLIPIDEMIA Y RHEUMATOID ARTHRITIS N PVD N EDEMA N CAROTID BLOCKAGE N SHINGLES N BACK / NECK PROBLEMS Y BOWEL PROBLEMS N DEPRESSION (INCLUDING POST ) Y HAVE YOU BEEN HOSPITALIZED OR SEEN IN [facility] ER IN THE PAST YEAR ? Y FAILED BACK SYNDROME N STROKE/TIA N LYMPHEDEMA N THYROID DISEASE N TB SKIN TEST N POLYCYSTIC OVARIES N OBESITY N HISTORY WITH COMPLICATIONS WITH ANESTHES IA ? N ANEURYSM N FIBROMYALGIA N OSTEOPOROSIS N URINARY/BLADDER/KIDNEY PROBLEMS [...] e and Address Organization Details Recorded Time Td 08/01/2013 completed Not Available [facility] 12/10/2023 01:06:05 Past Encounters Encounter ID Performer Location Encounter Start Date Encounter Closed Date Diagnosis/Indication Diagnosis SNOMED-CT Code Diagnosis ICD10 Code Diagnosis IMO Codes Diagnosis Note [id number] Uyen Vieyra MD [facility] Primary Care [address] [place] [address] 05/14/2021 00:00:00 05/14/2021 18:41:26 [id number] Uyen Vieyra MD [facility] [address] [place] [address] 05/16/2021 00:00:00 05/31/2021 10:34:36 [id number] [facility] Podiatry Aaron Caraballo [address] [facility] [address] [place] [address] 08/19/2021 00:00:00 08/20/2021 14:03:49 [id number] JERROD Wei [facility] [place] [address] [place] [address] 08/21/2021 00:00:00 08/21/2021 16:03:17 [id number] JERROD Wei [facility] [place] [address] [place] [address] 08/28/2021 00:00:00 08/28/2021 16:24:05 [id number] JERROD Wei [facility] [place] [address] [place] [address] 09/23/2021 00:00:00 09/23/2021 16:54:28 [id number] JERROD Wei [facility] [place] [address] [place] [address] 03/11/2022 00:00:00 03/11/2022 16:02:58 [id number] JERROD Wei [facility] [place] [address] [place] [address] 05/20/2022 00:00:00 05/20/2022 17:02:37 [id number] Uyen Vieyra MD [facility] [place] [address] [place] [address] 08/05/2022 00:00:00 08/05/2022 17:48:40 [id number] JERROD Wei [facility] [place] [address] [place] [address] 08/12/2022 00:00:00 08/12/2022 16:50:12 [id number] Robert Bradshaw DPM [facility] [address] [place] [address] 02/04/2023 14:23:18 02/04/2023 16:13:36 Ulcer of right foot due to type 2 diabetes mellitus 0826152454 4508204 E11.621 Betadine wet-to-dry dressings dailyofflo ading At all times, continue will checkfollo w-up in 2 weeks Diabetic p eripheral neuropathy 495109537 E11.40 [id number] Robert Bradshaw DPM [facility] [address] [place] [address] 02/18/2023 14:30:37 02/18/2023 15:45:12 Ulcer of right foot due to type 2 diabetes mellitus 0402152526 2894619 E11.621 Betadine wet-to-dry dressings with iodoform packing due to new tunnelingh h ordered for above QOD dressingso ffloading At all times, continue will checkfollo w-up in 1 week Diabetic foot ulcer 3710 37469 L97.512 sub 3rd metatarsal debrided per noteBetadi ne wet to dry dressings dailyofflo ading with wheelchair follow up in 1 week [id number] [facility] [address] [place] [address] 02/19/2023 17:31:42 02/19/2023 18:00:43 [id number] [facility] [address] [address] 02/25/2023 14:56:42 02/25/2023 15:41:29 Ulcer of right foot due to type 2 diabetes mellitus 2273997961 2153660 E11.621 Betadine wet-to-dry dressings with iodoform packing due to new tunnelingw ound debrided per notehh ordered for above daily dressingso ffloading At all times, continue will checkfollo w-up in 1 week Diabetic foot ulcer 3710 78792 L97.512 sub 3rd metatarsal healed [id number] [facility] [address] [place] [address] 03/04/2023 15:28:33 03/04/2023 16:03:46 Ulcer of right foot due to type 2 diabetes mellitus 4185267047 1990278 E11.621 Betadine wet-to-dry dressings with iodoform packing due to new tunnelingh h ordered for above daily dressingsO rder wound VAC- q.o.d. dressing changes 125mmhg suctionoff loading At all timesobtai n x-raysfoll ow-up in 1 week [id number] [facility] [address] [place] [address] 03/11/2023 15:33:03 03/11/2023 15:59:24 Diabetic foot ulcer 840289542 L97.512 Betadine wet-to-dry dressings with iodoform packing due to new tunnelingh h ordered for above daily dressingsO rder wound VAC- q.o.d. dressing changes 125mmhg suctionoff loading At all timesobtai n x-raysfoll ow-up in 1 week [id number] [facility] [address] [place] [address] 03/18/2023 15:06:59 03/18/2023 16:06:39 Ulcer of right foot due to type 2 diabetes mellitus 5755292751 2325113 E11.621 Wound VAC applied today right heelPatien t educated on the importance of nonweightb earingReco mmend 100% nonweightb earingPati ent educated on how to run wound VACif wound VAC becomes from rheumatic remove dressings and apply Betadine wet-to-dry dressing to prevent worsening of woundFollo w-up in 1 weekNursin g set up for Thursday and Thursday dressing changes [id number] [facility] [address] [place] [address] 03/25/2023 15:35:52 03/26/2023 13:14:59 Ulcer of right foot due to type 2 diabetes mellitus 1568327863 1747296 E11.621 Wound VAC Hold until home health is reschedule dwound debrided todayPatie nt educated on the importance of nonweightb earingReco mmend 100% nonweightb earingFoll ow-up in 1 week [id number] [facility] [address] [place] [address] 04/01/2023 16:19:04 04/01/2023 16:40:27 Ulcer of right foot due to type 2 diabetes mellitus 0193402981 1468135 E11.621 Wound VAC Hold until home health is reschedule d home healthcurr ently unable to find a new home health agentconti nue Betadine wet-to-dry dressings dailyPatie nt educated on the importance of nonweightb earingReco mmend 100% nonweightb earingFoll ow-up in 1 week [id number] Robert Bradshaw DPM [facility] [address] [place] [address] 04/08/2023 16:38:15 04/08/2023 17:25:51 Ulcer of right foot due to type 2 diabetes mellitus 2385121328 8572247 E11.621 Wound VAC Restart wound VAC with next home health visitappli ed Betadine wet-to-dry dressings todayPatie nt educated on the importance of nonweightb earingReco mmend 100% nonweightb earingFoll ow-up in 1 week [id number] [facility] [address] [place] [address] 04/15/2023 17:17:01 04/15/2023 18:01:27 Ulcer of right foot due to type 2 diabetes mellitus 7379213796 1422182 E11.621 Wound VAC Restart wound VAC [facility] updated orders today-- q.o.d. dressing changes 125 mm mercury continuous right plantar heel woundif wound VAC malfunctio ns patient is to remove the dressing apply Betadine wet-to-dry dressing until nursing can reapply.Jerrod bond educated on the importance of nonweightb earingReco mmend 100% nonweightb earingFoll ow-up in 1 week [id number] Robert Bradshaw DPM [facility] [address] [place] [address] 04/22/2023 18:08:01 04/22/2023 18:40:13 Ulcer of right foot due to type 2 diabetes mellitus [id number] E11.621 hold wound VACchange dressings to daily silver collagen with dry dressingsc hange dressings dailyMonit or for signs of infection at present seek medical attention immediatel yPatient educated on the importance of nonweightb earingReco mmend 100% nonweightb earingFoll ow-up in 2 week [id number] K[facility] [address] [place] [address] 05/06/2023 17:35:01 05/06/2023 17:48:10 Ulcer of right foot due to type 2 diabetes mellitus [id number] E11.621 hold wound VACchange dressings to daily silver collagen with dry dressingsc hange dressings dailyMonit or for signs of infection at present seek medical attention immediatel yPatient educated on the importance of nonweightb earingReco mmend 100% nonweightb earingFoll ow-up in 2 week [id number] KUL[facility] [address] [place] [address] 05/13/2023 15:31:05 05/13/2023 18:15:02 Ulcer of right foot due to type 2 diabetes mellitus [id number] E11.621 hold wound VACchange dressings to daily silver collagen with dry dressingsc hange dressings dailyMonit or for signs of infection at present seek medical attention immediatel yPatient educated on the importance of nonweightb earingReco mmend 100% nonweightb earingFoll ow-up in 2 week [id number] K[facility] [address] [place] [address] 05/20/2023 17:12:58 05/20/2023 18:44:39 Ulcer of right foot due to type 2 diabetes mellitus [id number] E11.621 hold wound VACchange dressings to daily silver collagen with dry dressingsc hange dressings dailyMonit or for signs of infection at present seek medical attention immediatel yPatient educated on the importance of nonweightb earingReco mmend 100% nonweightb earingFoll ow-up in 2 week [id number] KULWIND[facility] [address] [place] [address] 05/27/2023 16:05:29 05/27/2023 16:48:09 Ulcer of right foot due to type 2 diabetes mellitus [id number] E11.621 discontinu e wound VACchange dressings to daily silver collagen with dry dressingsc hange dressings dailyMonit or for signs of infection at present seek medical attention immediatel yPatient educated on the importance of nonweightb earingReco mmend 100% nonweightb earingFoll ow-up in 1 week [id number] Robert Bradshaw DPM [facility] [address] [place] [address] 06/03/2023 16:56:56 06/03/2023 18:09:02 Ulcer of right foot due to type 2 diabetes mellitus [id number] E11.621 Wound debrided per notechange dressings to daily silver collagen with dry dressingsc hange dressings dailyMonit or for signs of infection at present seek medical attention immediatel yPatient educated on the importance of nonweightb earingReco mmend 100% nonweightb earingFoll ow-up in 1 week [id number] [facility]ULWIND[facility] [address] [place] [address] 06/10/2023 17:30:30 06/10/2023 19:20:16 Ulcer of right foot due to type 2 diabetes mellitus [id number] E11.621 Wound debrided per notechange dressings to daily silver collagen with dry dressingsc hange dressings dailyMonit or for signs of infection at present seek medical attention immediatel yPatient educated on the importance of nonweightb earingReco mmend 100% nonweightb earingFoll ow-up in 1 week [id number] Robert Bradshaw DPM [facility] [address] [place] [address] 06/24/2023 16:29:13 06/24/2023 18:05:51 Ulcer of right foot due to type 2 diabetes mellitus [id number] E11.621 Wound debrided per notechange dressings to daily silver collagen with dry dressingsc hange dressings dailyMonit or for signs of infection at present seek medical attention immediatel yPatient educated on the importance of nonweightb earingReco mmend 100% nonweightb earingFoll ow-up in 1 week [id number] Robert Bradshaw DPM [facility] [address] [place] [address] 09/09/2023 16:27:51 09/10/2023 15:31:44 Ulcer of right foot due to type 2 diabetes mellitus [id number] E11.621 right foot times x2 diabetic foot ulcersWoun ds debrided per notechange dressings to daily apply Betadine wet-to-dry dressingsc ultures takenMonit or for signs of infection at present seek medical attention immediatel yPatient educated on the importance of nonweightb earingReco mmend 100% nonweightb earingFoll ow-up in 1 week [id number] Robert Bradshaw DPM [facility] [address] [place] [address] 09/23/2023 16:01:31 09/23/2023 17:26:30 Ulcer of right foot due to type 2 diabetes mellitus [id number] E11.621 right foot times x3 diabetic foot [...] [place] Member ID Guarantor Name 07/13/2024 1 [facility] - DOS ON OR AFTER 21 (MEDICAID REPLACEMENT - HMO) Robert Dickson [id number] Robert Dickson Notes Date Note Type Note Provider Name and Address Organization Details Recorded Time 06/03/2023 text/html . Patient is a 42-year-old male diabetic who returns the office for follow-up on right heel wound. Patient has continued to slowly heal the wound denies any signs of infection. Patient denies any other complaints. Robert Bradshaw DPM [address], [place], [address], [place] 06/03/2023 17:24:31 06/10/2023 text/html . Patient is a 42-year-old male diabetic with neuropathy who returns the office for right foot heel wound. Patient continue to reduce pressure to the area and the wound is almost completely healed. Patient denies any new pedal complaints. Robert Bradshaw DPM [address], [place], [address], [place] 06/10/2023 18:00:15 06/24/2023 text/html . Patient is [...] any other pedal complaints. Robert Bradshaw DPM [address], [place], [address], [facility] 06/25/2023 09:17:24 09/09/2023 text/html . Patient is a 42-year-old male diabetic returns to the Wound Care office for new wounds he has sustained to the right foot x2. Patient states that they have been present for a couple days. Patient denies any fever, chills, nausea vomiting. Patient states he has mild pain to the area. Patient denies any other complaints. Robert Bradshaw DPM [address], [place], [address], [facility] 09/23/2023 09:56:16 09/23/2023 text/html . Patient is [...] any other complaints. Robert Bradshaw DPM [address] [facility], [facility] [address], [place], [address], [facility] 09/23/2023 17:07:46
--- OUTSIDE RECORDS SUMMARY | 2025-10-30 14:24 | XMS_ITS | Clinical Summary ---
Author Organization [facility] Address [address] [place] [phone] Phone Care Team Providers Care Enrollment Coordinator Name Role Phone MARIELLA YANEZ, JOSE Barrientos Primary Care Provider [phone] TARA YANEZ, JOSELIN Wells Unavailable [phone] Reason for Visit and Chief Complaint [Patient Encounter] Plan of Treatment No Plan of Treatment Recorded Assessments Includes: Assessments from this encounter No Assessments Recorded Medical Equipment - Implanted Devices Includes: Current Devices No Medical Equipment Recorded Medications Includes: Medications discussed during this encounter and other current Medications Current Medications (continue as prescribed) Pregabalin 150 MG Oral Capsule 10/11/2021 Provider: SUZE REZA Diagnosis: Oth diabetes del litus with diabetic neuropathy, unspecified 1 CAPSULE TWO TIMES A DAY Last Documented On 1 10:44AM By SUZE REZA ; [facility] Sertraline HCl 100 MG Oral Tablet 07/21/2019 Provide r: Diagnosis: Last Documented On 9 3:11PM By Olga FISCHER ; [facility] Losartan Potassium 100 MG Oral Tablet 07/21/2019 Pro vider: Diagnosis: Last Documented On 9 3:11PM By Olga FISCHER ; [facility] Gabapentin 300 MG Oral Capsule 07/21/2019 Provider: Diagnosis: Last Documented On 9 3:11PM By Olga FISCHER ; [facility] Naproxen 500 MG Oral Tablet 07/21/2019 Provider: Diagnosis: Last Documented On 9 3:11PM By Olga FISCHER ; [facility] hydroCHLOROthiazide 25 MG Oral Tablet 07/21/2019 Pro vider: Diagnosis: Last Documented On 9 3:12PM By Olga FISCHER ; [facility] Metoprolol Tartrate 100 MG Oral Tablet 07/21/2019 Pr ovider: Diagnosis: Last Documented On 9 3:12PM By Olga FISCHER ; [facility] Medications Administered Includes: Administered Medications from this encounter No Administered Medications Recorded Results Includes: Results discussed during this encounter No Results Recorded For Specified Dates History of Present Illness Includes: History of Present Illness from this encounter No History of Present Illness Recorded Social History No Social History Recorded - Smoking Status Unknown Medical History Includes: Medical History addressed during this encounter No Medical History Recorded Family History Includes: Family History addressed during this encounter No Family History Recorded Review of Systems Includes: Review of Systems from this encounter No Review of Systems Recorded Mental Status Includes: Mental Status from this encounter No Mental Status Recorded Functional Status Includes: Functional Status from this encounter No Functional Status Recorded Physical Exam Includes: Physical Exam from this encounter No Physical Exam Recorded Allergies Includes: Active Allergies Substance Type Reaction Onset Date Resolved Date Statu s traMADol HCl Allergy 07/21/2019 Active Last Documented On 1 9:56AM ; [facility] Encounters Encounter Provider Location Date Check-In Time Check-Out Time Diagnosis [Patient Encounter] SUZE REZA 08/09/2019 4:13PM 11:59PM Insurance Includes: Active Insurance Policies Plan Name Member ID Group # Subscriber Relationship Effect brice Dates 1 - [facility] [id number] VILLA Ryder Clinical Notes Includes: Clinical Notes from this encounter No Clinical Notes Recorded
--- NOTE | 2025-10-30 15:05 | ED.GENADULT ---
HPI - General Adult General Chief complaint: Urogenital-Male Stated complaint: flank pain, leg swelling Time Seen by Provider: 10/30/25 14:08 History of Present Illness HPI narrative: 44-year-old male presents to the emergency department for evaluation for right flank pain. Patient also does have chronic lymphedema. Patient states that he also does have a history of kidney stones. Patient does follow-up with cardiology and primary care and Urology at [facility]. Related Data Home Medications ?Medication ?Instructions ?Recorded ?Confirmed ?Last Taken ?Type gabapentin 300 mg capsule 400 mg PO QID PRN Muscle Pain 04/27/20 09/30/25 09/17/25 History atorvastatin 80 mg tablet 40 mg PO QPM 03/23/23 09/30/25 09/17/25 History sertraline 100 mg tablet 200 mg PO HS 03/23/23 09/30/25 09/17/25 History aspirin 81 mg chewable tablet 1 tablet PO DAILY 03/28/25 09/30/25 09/17/25 History carvedilol 25 mg tablet 25 mg PO Q12H 03/28/25 09/30/25 09/17/25 History ergocalciferol (vitamin D2) 1,250 1,250 mcg PO WEEKLY 03/28/25 09/30/25 09/13/25 History mcg (50,000 unit) capsule folic acid 1 mg tablet 1 mg PO DAILY 03/28/25 09/30/25 09/17/25 History hydralazine 25 mg tablet 25 mg PO DAILY 03/28/25 09/30/25 09/17/25 History losartan 50 mg tablet 50 mg PO DAILY 03/28/25 09/30/25 09/17/25 History pantoprazole 40 mg tablet,delayed 40 mg PO Q12H 03/28/25 09/30/25 09/17/25 History release rivaroxaban 20 mg tablet (Xarelto) 20 mg PO QPM 03/28/25 09/30/25 09/17/25 History zolpidem 10 mg tablet 10 mg PO QHS 03/28/25 09/30/25 09/17/25 History ondansetron 4 mg disintegrating 4 mg translingual Q8H PRN nausea 05/14/25 09/30/25 05/13/25 09:18 History tablet and vomiting 4 mg empagliflozin 10 mg tablet 10 mg PO DAILY 09/30/25 09/30/25 09/29/25 12:00 History (Jardiance) metoprolol succinate 25 mg 25 mg PO DAILY 09/30/25 09/30/25 09/17/25 History tablet,extended release 24 hr Allergies Allergy/AdvReac Type Severity Reaction Status Date / Time tramadol AdvReac Hallucinati Verified 09/30/25 00:20 ng Review of Systems Review of Systems: All systems reviewed & are unremarkable except as noted in HPI and below [facility] Past Medical History Medical History (Updated 10/30/25 @ 15:12 by Bean Oneill MD) DVT (deep venous thrombosis) Pneumonia Amputation of toe 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 Psoriasis Eczema Hepatic steatosis Esophagitis with gastritis Chronic kidney disease, stage 3b With baseline creatinine ranging between 1.45 and 1.6 Diabetic nephropathy Hyperlipidemia Mitral regurgitation Diabetic neuropathy DM2 (diabetes mellitus, type 2) Now diet controlled due to 200 lb weight loss previously was insulin-dependent HTN (hypertension) with goal to be determined Kidney stones COPD (chronic obstructive pulmonary disease) Depression with anxiety History of COPD History of hypertension Surgical History Surgical History History of amputation of right great toe Partial amputation of right great toe 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 Patient had a metal mitral valve replacement place in 2022 and had 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 with secondary tissue valve replacement within 2 weeks of original procedure H/O tooth extraction History of lithotripsy (~2019) Right kidney History of cardiac catheterization 2013, no coronary artery disease with repeat heart catheterization 2022 with placement of 2 stents Family History Family History Mother Cerebrovascular accident Hypertension Depression Father Diabetes mellitus Heart disease Cancer before age 60 Acute myocardial infarction Grandparent Heart disease COPD (chronic obstructive pulmonary disease) Kidney disease Social History Social History (Updated 10/01/25 @ 21:30 by Ashly Salas APRN) Social History: The patient is and lives with his He has 3 children. 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 He used to smoke 2-3 packs of cigarettes per day but quit smoking in 2022 when he had his mitral valve replaced. He denies any alcohol. He uses marijuana. Code status: Full code Surrogate decision maker: Malia () Smoking packs per day: 2 Smoking cigarettes per day: 40.0 Years smoked: 30 Smoking pack-years: 60.00 Smoking status: Former smoker Tobacco type: cigarettes Second hand tobacco smoke exposure: No Alcohol intake: never Substance use: current Substance use type: marijuana Last use: 09/16/25 Lack of Transportation: No Lack of Food: Never True Current Housing: I Have Housing Concerned About Future Housing: No Difficulty Paying Gas/Electric Bills: No Difficulty Paying for Meds: No Currently Unemployed: No Education: High School Diploma/GED Difficulty w/ Childcare or Family Care: No Gender identity (if verbalized by the patient): Male Spiritual care concerns: No Exam Narrative: APPEARANCE: Well appearing, no pain, no distress, well-nourished. HEAD: normocephalic, atraumatic. EYES: PERRLA/EOMI, conjunctivae clear. NOSE: Normal no drainage EARS:TMS clear with good light reflex. THROAT: Pharynx clear, no exudate. NECK: Supple. No adenopathy, no masses. RESPIRATORY: Airway patent, respirations nonlabored. Clear to auscultation bilaterally, no rales, rhonchi, wheezing. CARDIOVASCULAR: Regular rate and rhythm without murmurs rubs or gallops. ABDOMINAL: Soft, nontender, nondistended, normal bowel sounds MUSCULOSKELETAL: lower extremity edema +1. NEURO: Alert. Cranial nerves II through XII intact. Good gait. Good coordination SKIN: Warm, dry. Normal Color Course Vital Signs Vital signs: Vital Signs Temperature 97.6 F 10/30/25 12:55 Pulse Rate 61 10/30/25 12:55 Respiratory Rate 16 10/30/25 12:55 Blood Pressure 147/77 H 10/30/25 12:55 Pulse Oximetry 100 10/30/25 12:55 Temperature 98.4 F 10/30/25 15:24 Pulse Rate 61 10/30/25 12:55 Respiratory Rate 20 10/30/25 15:24 Blood Pressure 147/77 H 10/30/25 12:55 Pulse Oximetry 100 10/30/25 12:55 MDM MDM Narrative Medical decision making narrative: 44-year-old male presents emergency department for evaluation for right flank pain. Patient states he does suspect this is a kidney stone. Patient is currently afebrile with no leukocytosis and a stable hemoglobin. Patient does have a creatinine of 2.1 which is similar to his baseline. UA was negative for infection was positive for hematuria. Low concern for infection. Patient does follow-up with Urology at [facility]. Patient states he does have Flomax at home. Patient was advised to have close follow-up with his physicians. Patient's for additional medication for pain control. Patient was also educated on reasons to return to the emergency department. Differential Diagnosis Differential Diagnosis: UTI, hematuria, ureteral calculi, colitis, diverticulitis, obstructive uropathy, acute kidney injury chronic kidney disease Lab Data 10/30/25 13:45 10/30/25 13:45 Labs: Lab Results 10/30/25 10/30/25 Range/Units 13:25 13:45 WBC 7.0 (4.5-10.0) K/mm3 RBC 3.90 L (4.6-6.20) M/mm3 Hgb 11.0 L (14.0-18.0) g/dL Hct 35.6 L (42.0-52.0) % MCV 91.3 (80-100) fl MCH 28.2 (26-34) pg MCHC 30.9 L (32-36) g/dl RDW 15.6 H (11.5-14.5) % Plt Count 199 (150-375) k/mm3 MPV 10.9 H (7.4-10.4) fl Immature Gran % (Auto) 0.4 (0-0.5) % Neut % (Auto) 69.0 (45.5-73.1) % Lymph % (Auto) 22.0 (18.3-44.2) % Placer % (Auto) 5.6 (2.6-8.5) % Eos % (Auto) 2.3 (0-4.4) % Baso % (Auto) 0.7 (0.2-1.2) % Lymph # (Auto) 1.53 (0.9-3.2) K/mm3 Placer # (Auto) 0.4 (0.1-0.6) K/mm3 Eos # (Auto) 0.2 (0-0.3) K/mm3 Baso # (Auto) 0.1 (0.0-0.1) K/mm3 Abs Immat Gran (auto) 0.03 (0.00-0.031) K/mm3 Absolute Neuts (auto) 4.8 (1.3-6.7) K/mm3 Absolute Nucleated RBC 0.000 (0.0-0.012) K/mm3 Nucleated RBC % 0.0 (0.0-0.2) % Sodium 140 (137-145) mmol/L Potassium 4.8 (3.4-5.0) mmol/L Chloride 111 H (98-107) mmol/L Carbon Dioxide 16 L (22-30) mmol/L Anion Gap 13 H (4-12) mmol/L BUN 36 H D (9-20) mg/dL Creatinine 2.10 H (0.7-1.3) mg/dL Estim Creat Clear Calc 45 ml/min Estimated GFR 34 L (59 - ) Glucose 126 H (65-110) mg/dL Calcium 8.8 (8.4-10.2) mg/dL Total Bilirubin 0.3 (0.2-1.3) mg/dL AST 29 (17-59) U/L ALT 14 (6-50) U/L Alkaline Phosphatase 186 H (38-126) U/L Total Protein 9.0 H (6.3-8.2) g/dL Albumin 4.7 (3.5-5.1) g/dL Urine Color Yellow (Yellow) Urine Appearance Clear (Clear) Urine pH 5.5 (5.0-9.0) Ur Specific [place] 1.014 (1.001-1.035) Urine Protein 2+ H (Negative) mg/dL Urine Glucose (UA) 2+ H (Negative) mg/dL Urine Ketones Negative (Negative) mg/dL Ur Blood (Man) 1+ H (Negative) Urine Nitrate Negative (Negative) Urine Bilirubin Negative (Negative) Urine Urobilinogen 0.2 (<2.0) mg/dL Leukocyte Esterase Rfl Negative (Negative) MARIA VICTORIA/UL Urine RBC 11-20 H (0-2) /hpf Urine WBC 0-5 (0-3) /hpf Ur Squamous Epith Cells None seen (Few) /hpf Urine Bacteria None seen /hpf Urine Casts 0-2 Imaging Data Radiologist's impression: ITS Impressions Abdomen/Pelvis CT 10/30/25 14:18 IMPRESSION: 1. Moderate-severe right hydronephrosis with abrupt termination of the UPJ. Cannot exclude UPJ obstruction. Moderate bilateral perinephric stranding with bladder wall thickening. Cannot exclude ascending urinary tract infection with cystitis. Clinically correlate. 2: Nonobstructing bilateral nephrolithiasis. Discharge Plan Discharge Clinical Impression: Acute right flank pain Patient Disposition: Home Condition: Stable Instructions: Antibiotic Form, Kidney Stones (ED), How to Strain Your Urine (ED) Additional Instructions: Have close follow-up with Urology. Medications for pain control as directed. Flomax to help you pass the stone. Strain your urine as instructed. Patient Language: Irish Prescriptions: New hydrocodone-acetaminophen 5-325 mg tablet 1 tablet PO Q12H PRN (Reason: pain) Qty: 14 0RF No Action carvedilol 25 mg tablet 25 mg PO Q12H hydralazine 25 mg tablet 25 mg PO DAILY losartan 50 mg tablet 50 mg PO DAILY pantoprazole 40 mg tablet,delayed release (DR/EC) 40 mg PO Q12H Xarelto 20 mg tablet 20 mg PO QPM zolpidem 10 mg tablet 10 mg PO QHS folic acid 1 mg tablet 1 mg PO DAILY ergocalciferol (vitamin D2) 1,250 mcg (50,000 unit) capsule 1,250 mcg PO WEEKLY Patient Comments: Pt takes on Wednesdays. aspirin 81 mg tablet,chewable 1 tablet PO DAILY Jardiance 10 mg tablet 10 mg PO DAILY metoprolol succinate 25 mg tablet extended release 24 hr 25 mg PO DAILY clopidogrel [Plavix] 75 mg tablet 75 mg PO DAILY Qty: 90 2RF tamsulosin 0.4 mg Capsule 0.4 mg PO QAM Qty: 30 0RF oxycodone 5 mg Tablet 5 mg PO Q6H PRN (Reason: Pain 7-10) Qty: 12 0RF gabapentin 300 mg capsule 400 mg PO QID PRN (Reason: Muscle Pain) atorvastatin 80 mg tablet 40 mg PO QPM sertraline 100 mg tablet 200 mg PO HS Patient Comments: patient taking 200mg ondansetron 4 mg tablet,disintegrating 4 mg translingual Q8H PRN (Reason: nausea and vomiting) Follow-up/Referrals: Marjorie,Masha Ellis APRN [Primary Care Provider, Unknown]
[2025-10-30] MEDS: HYDROcodone/acetaminophen (*CRX) 5-325 MG TABLET 1 TAB PO (15:23)
[2025-10-30 15:24] VITALS: RESP 20; TEMP 36.9
--- OUTSIDE RECORDS SUMMARY | 2025-10-30 16:00 | XMS_ITS ---
Author Organization [facility] Address [address] [place] [address] Phone Care Team Providers Care Superintendent Transportation Name Role Phone MARIELLA YANEZ, JOSE Barrientos Primary Care Provider [phone] JOSELIN PACHECO MD Unavailable [phone] Plan of Treatment No Plan of Treatment Recorded Assessments Includes: Assessments for all patient encounters Findings Encounter Date Bulging lumbar disc PAIN MANAGEMENT NEW CONSULT ESTABLISHED with SUZE ACEVES-BC 10/11/2021 Last Documented On 1 4:55PM ; [facility] Chronic pain syndrome PAIN MANAGEMENT NE W CONSULT ESTABLISHED with SUZE PEREZ ANP-BC 10/11/2021 Last Documented On 1 4:55PM ; [facility] Diabetic peripheral neuropathy PAIN JAZMINE GEMENT NEW CONSULT ESTABLISHED with SUZEAlvarado PEREZ ANP-BC 10/11/2021 Last Documented On 1 4:55PM ; [facility] Lumbar disc degeneration PAIN MANAGEMENT NEW CONSULT ESTABLISHED with SUZETAMIR PEREZ ANP-BC 10/11/2021 Last Documented On 1 4:55PM ; [facility] Myalgia PAIN MANAGEMENT NEW CONSULT ESTABLISHED with SUZE Iliana PEREZ ANP-BC 10/11/2021 Last Documented On 1 4:55PM ; [facility] Sacroiliitis PAIN MANAGEMENT NEW CONSULT ESTABLISHED with SUZE Iliana PEREZ ANP-BC 10/11/2021 Last Documented On 1 4:55PM ; [facility] Chronic pain syndrome PAIN MANAGEMENT NE W CONSULT with SUZE PEREZ ANP-BC 07/21/2019 Last Documented On 9 9:12AM ; [facility] Diabetic peripheral neuropathy PAIN JAZMINE GEMENT [facility] 07/21/2019 Last Documented On 9 9:12AM ; [facility] use of opiate analgesic PAIN M ANAGEMENT NEW CONSULT [facility] 07/21/2019 Last Documented On 9 9:12AM ; [facility] Lumbar radiculopathy PAIN MANAGEMENT [facility] 07/21/2019 Last Documented On 9 9:12AM ; [facility] Myalgia PAIN MANAGEMENT [facility] 07/21/2019 Last Documented On 9 9:12AM ; [facility] Sacroiliitis PAIN MANAGEMENT NEW [facility] 07/21/2019 Last Documented On 9 9:12AM ; [facility] Medical Equipment - Implanted Devices Includes: Current and historical Devices No Medical Equipment Recorded Medications Includes: Current and historical Medications Current Medications (continue as prescribed) Pregabalin 150 MG Oral Capsule 10/11/2021 Provider: SUZE MARTINEZ Diagnosis: Oth diabetes del litus with diabetic neuropathy, unspecified 1 CAPSULE TWO TIMES A DAY Last Documented On 1 10:44AM By [facility] ; [facility] Sertraline HCl 100 MG Oral Tablet 07/21/2019 Provide r: Diagnosis: Last Documented On 9 3:11PM By Olga FISCHER ; [facility] Losartan Potassium 100 MG Oral Tablet 07/21/2019 Pro vider: Diagnosis: Last Documented On 9 3:11PM By Olga FISCHER ; [facility] Gabapentin 300 MG Oral Capsule 07/21/2019 Provider: Diagnosis: Last Documented On 9 3:11PM By Olga FISCHER ; [facility] Naproxen 500 MG Oral Tablet 07/21/2019 Provider: Diagnosis: Last Documented On 9 3:11PM By Olga FISCHER ; [facility] hydroCHLOROthiazide 25 MG Oral Tablet 07/21/2019 Pro vider: Diagnosis: Last Documented On 9 3:12PM By Olga FISCHER ; [facility] Metoprolol Tartrate 100 MG Oral Tablet 07/21/2019 Pr ovider: Diagnosis: Last Documented On 9 3:12PM By Olga FISCHER ; [facility] Past Medications on file Gabapentin 600 MG Oral Tablet 07/25/2019 - 10/11/2021 Provider: SUZE PEREZ [facility]- Diagnosis: Oth diabetes del litus with diabetic neuropathy, unspecified One tablet three times a day Last Documented On 10/11/2021 9:56AM By Darya FISCHER ; [facility] HYDROcodone-Acetaminophen 10-325 MG Oral Tablet 07/21/2019 - 10/11/2021 Provider: Diagnosis: Last Documented On 10/11/2021 9:55AM By Darya FISCHER ; [facility] Medications Administered Includes: Administered [...] 10/11/2021 Last Documented On 1 4:55PM ; [facility] Difficulty walking 10/11/2021 Last Documented On 1 4:55PM ; [facility] No consumption of alcohol 10/11/2021 Last Documented On 1 4:55PM ; [facility] Not using drugs 10/11/2021 Last Documented On 1 4:55PM ; [facility] Smoking packs of cigarettes per day 1 Last Documented On 1 4:55PM ; [facility] Currently 07/21/2019 Last Documented On 9 9:12AM ; [facility] Tobacco use 07/21/2019 Last Documented On 9 9:12AM ; [facility] Smoking Status Unknown Procedures and [...] 07/21/2019 Last Documented On 9 9:12AM ; [facility] Review of Systems Review of Systems [...] Active Last Documented On 1 9:56AM ; [facility] Insurance Includes: Active Insurance Policies Plan Name Member ID Group # Subscriber Relationship Effect brice Dates 1 - [facility] [id number] VILLA [employer] Clinical Notes Includes: Signed Clinical Notes starting from 11/28/2022 No Clinical Notes Recorded
--- OUTSIDE RECORDS SUMMARY | 2025-10-30 16:00 | XMS_ITS | Clinical Summary ---
Author Organization [facility] Address [address] [place] [address] Phone Care Team Providers Care Corrosion Prevention Metal Sprayer Name Role Phone MARIELLA YANEZ, JOSE Barrientos Primary Care Provider [phone] JOSELIN PACHECO MD Unavailable [phone] Reason for Visit and Chief Complaint referred by shira kelly - The Chief Complaint is: pt here today for back pain that radiates down his right side/leg. Pt has tried PT about 6 months ago, no relief. Pt has tried injections in December and he states he is not willing to try that again. Injections done at [facility]. denies any previous PM. imaging done at [facility] Plan of Treatment Risk assessment completed and UDS collected for initial pain management visit to determine opioid candidacy and risk. Urine sample sent for confirmation via LCMS when appropriate. - Last Documented On 07/25/2019 9:12AM ; [facility] Assessments Includes: Assessments from this encounter Findings - Diabetic peripheral neuropathy [E13.40 - Other specified diabetes mellitus with diabetic neuropathy unspecified] - Last Documented On 07/25/2019 9:12AM ; [facility] - Sacroiliitis [M46.1 - Sacroiliitis not elsewhere classified] - Last Documented On 07/25/2019 9:12AM ; [facility] - Lumbar radiculopathy [M54.16 - Radiculopathy lumbar region] - Last Documented On 07/25/2019 9:12AM ; [facility] - Myalgia [M79.18 - Myalgia other site] - Last Documented On 07/25/2019 9:12AM ; [facility] - Chronic pain syndrome [G89.4 - Chronic pain syndrome] - Last Documented On 07/25/2019 9:12AM ; [facility] - oysterman use of opiate analgesic [Z79.891 - nursing home (current) use of opiate analgesic] - Last Documented On 07/25/2019 9:12AM ; [facility] Medical Equipment - Implanted [...] On 1 10:44AM By SUZE REZA ; [facility] Sertraline HCl 100 MG Oral Tablet 07/21/2019 Provide r: Diagnosis: Last Documented On 9 3:11PM By Olga FISCHER ; [facility] Losartan Potassium 100 MG Oral Tablet 07/21/2019 Pro vider: Diagnosis: Last Documented On 9 3:11PM By Olga FISCHER ; [facility] Gabapentin 300 MG Oral Capsule 07/21/2019 Provider: Diagnosis: Last Documented On 9 3:11PM By Olga FISCHER ; [facility] Naproxen 500 MG Oral Tablet 07/21/2019 Provider: Diagnosis: Last Documented On 9 3:11PM By Olga FISCHER ; [facility] hydroCHLOROthiazide 25 MG Oral Tablet 07/21/2019 Pro vider: Diagnosis: Last Documented On 9 3:12PM By Olga FISCHER ; [facility] Metoprolol Tartrate 100 MG Oral Tablet 07/21/2019 Pr ovider: Diagnosis: Last Documented On 9 3:12PM By Olga FISCHER ; [facility] Medications Administered Includes: Administered Medications from this encounter No Administered Medications Recorded Vital Signs Includes: Vital Signs from this encounter Vital Name 07/21/2019 03:14P Blood Pressure Sitting R 122/80 BP Cuff Size Regular Pulse Rate-Sitting (bpm) 76 Pulse Rhythm Regular Respiration Rate (breaths/min) 18 Weight (lb) 252 Pain Level 9 Last Documented: On 07/21/2019 3:15PM ; [facility] Results Includes: Results discussed during this encounter Drugs of abuse screen [facility] Ordered by SUZE PEREZ [facility] [place] Collected: Reported: 07/21/2019 16:04 Last Documented On 9 4:04PM ; [facility] Reviewed on 07/21/2019; All test results are final unless otherwise noted. Internal QC Acceptable YES N (Normal) Last Documented On 9 4:04PM ; [facility] Lot # & Exp. Date [id number] EXP 03/28 N (Normal) Last Documented On 9 4:04PM ; [facility] Amphetamines NEG (NEG) N (Normal) Last Documented On 9 4:04PM ; [facility] Barbiturates NEG (neg) N (Normal) Last Documented On 9 4:04PM ; [facility] Benzodiazepines NEG (neg) N (Normal) Last Documented On 9 4:04PM ; [facility] Cocaine NEG (neg) N (Normal) Last Documented On 9 4:04PM ; [facility] Ecstasy NEG (Neg) N (Normal) Last Documented On 9 4:04PM ; [facility] Methamphetamines NEG (neg) N (Normal) Last Documented On 9 4:04PM ; [facility] Methadone NEG (Neg) N (Normal) Last Documented On 9 4:04PM ; [facility] Morphine POS (Neg) A (Abnormal) Last Documented On 9 4:04PM ; [facility] Oxycodone NEG (Neg) N (Normal) Last Documented On 9 4:04PM ; [facility] Phencyclidine NEG (NEG) N (Normal) Last Documented On 9 4:04PM ; [facility] TCA/Tricyclic Antidepressants NEG (neg) N (Normal) Last Documented On 9 4:04PM ; [facility] Cannabis NEG (neg) N (Normal) Last Documented On 9 4:04PM ; [facility] History of Present Illness [...] He was seen by a surgeon at [facility] who recommended injections. These were painful and [...] 07/21/2019 Last Documented On 9 9:12AM ; [facility] No consumption of alcohol 07/21/2019 Last Documented On 9 9:12AM ; [facility] Not using drugs 07/21/2019 Last Documented On 9 9:12AM ; [facility] Tobacco use 07/21/2019 Last Documented On 9 9:12AM ; [facility] Smoking Status Unknown Procedures and Surgical History Includes: Procedures from this encounter Procedures Code Diagnosis Performing Provider Service L ocation Service Date education and instructions provided Last Documented On 9 3:58PM ; [facility] Medical History Includes: Medical History addressed during this encounter Description Last Updated History of arthritis 07/21/2019 Last Documented On 9 9:12AM ; [facility] History of diabetes mellitus 07/21/2019 Last Documented On 9 9:12AM ; [facility] Family History Includes: Family History addressed during this encounter Description Last Updated Father LUNG CANCER 07/21/2019 Last Documented On 9 9:12AM ; [facility] Spouse BLADDER FISTULA ~DIVERTICULITIS 0 07/21/2019 Last Documented On 9 9:12AM ; [facility] Review of Systems Includes: [...] Active Last Documented On 1 9:56AM ; [facility] Encounters Encounter Provider Location Date Check-In Time Check-Out Time Diagnosis PAIN MANAGEMENT NEW CONSULT SUZE ACEVES-[facility]- 07/21/20 19 3:15PM 4:00PM Sacroiliitis,L umbar Radiculopathy, Myalgia,Diabet es Mellitus Diabetic Peripheral Neuropathy,Chr onic Pain Syndrome,Shelter Use of Opiate Analgesic Insurance Includes: Active Insurance Policies Plan Name Member ID Group # Subscriber Relationship Effect brice Dates - [facility] [id number] VILL[employer] Clinical Notes Includes: Clinical Notes from this encounter No Clinical Notes Recorded
--- OUTSIDE RECORDS SUMMARY | 2025-10-30 16:00 | XMS_ITS | Clinical Summary ---
Author Organization [facility] Address [address] [place] [phone] Phone Care Team Providers Care Gleason Gear Generator Name Role Phone MARIELLA YANEZ, JOSE Barrientos Primary Care Provider [phone] TARA YANEZ, JOSELIN Wells Unavailable [phone] Reason for Visit and Chief Complaint The Chief Complaint is: REFERRED BY SEJAL CASTREJON FOR PERIPHERAL NEUROPATHY Plan of Treatment No Plan of Treatment Recorded Assessments Includes: Assessments from this encounter Findings - Diabetic peripheral neuropathy [E13.40 - Other specified diabetes mellitus with diabetic neuropathy, unspecified] - Last Documented On 10/15/2021 4:55PM ; [facility] - Sacroiliitis [M46.1 - Sacroiliitis, not elsewhere classified] - Last Documented On 10/15/2021 4:55PM ; [facility] - Lumbar disc degeneration [M51.36 - Other intervertebral disc degeneration, lumbar region] - Last Documented On 10/15/2021 4:55PM ; [facility] - Bulging lumbar disc [M51.26 - Other intervertebral disc displacement, lumbar region] - Last Documented On 10/15/2021 4:55PM ; [facility] - Myalgia [M79.18 - Myalgia, other site] - Last Documented On 10/15/2021 4:55PM ; [facility] - Chronic pain syndrome [G89.4 - Chronic pain syndrome] - Last Documented On 10/15/2021 4:55PM ; [facility] Medical Equipment - Implanted Devices Includes: Current Devices No Medical Equipment Recorded Medications Includes: Medications discussed during this encounter and other current Medications Discontinued / Stopped on this date SUZE ACEVES-[facility] on 07/25/2019 Gabapentin 600 MG Oral Tablet Provider: SUZEAlvarado REZA Diagnosis: Oth diabetes del litus with diabetic neuropathy, unspecified Last Documented On 10/11/2021 9:56AM By Darya FISCHER ; [facility] HYDROcodone-Acetaminophen 10-325 MG Oral Tablet Provider: Diagnosis: Last Documented On 10/11/2021 9:55AM By Darya FISCHER ; [facility] New / Renewed during this visit SUZE REZA on 10/11/2021 Pregabalin 150 MG Oral Capsule Provider: SUZE REZA 30 day supply: 60 capsule, 1 refills Diagnosis: Oth diabetes mellitus with diabetic neuropathy, unspecified 1 CAPSULE TWO TIMES A DAY Pharmacy: [facility] ([facility]) - [address] , [place], [phone] - Last Documented On 10:44AM By SUZE REZA ; [facility] Current Medications (continue as prescribed) Sertraline HCl 100 MG Oral Tablet 07/21/2019 Provide r: Diagnosis: Last Documented On 9 3:11PM By Olga FISCHER ; [facility] Losartan Potassium 100 MG Oral Tablet 07/21/2019 Pro vider: Diagnosis: Last Documented On 9 3:11PM By Olga FISCHER ; [facility] Gabapentin 300 MG Oral Capsule 07/21/2019 Provider: Diagnosis: Last Documented On 9 3:11PM By Olga FISCHER ; [facility] Naproxen 500 MG Oral Tablet 07/21/2019 Provider: Diagnosis: Last Documented On 9 3:11PM By Olga FISCHER ; [facility] hydroCHLOROthiazide 25 MG Oral Tablet 07/21/2019 Pro vider: Diagnosis: Last Documented On 9 3:12PM By Olga FISCHER ; [facility] Metoprolol Tartrate 100 MG Oral Tablet 07/21/2019 Pr ovider: Diagnosis: Last Documented On 9 3:12PM By Olga FISCHER ; [facility] Medications Administered Includes: Administered [...] 98 Last Documented: On 10/11/2021 9:54AM ; [facility] Results Includes: Results discussed [...] change. Therapy last done in 01/2020 at [place], this increased symptoms. He does home exercises. [...] 10/11/2021 Last Documented On 1 4:55PM ; [facility] Difficulty walking 10/11/2021 Last Documented On 1 4:55PM ; [facility] No consumption of alcohol 10/11/2021 Last Documented On 1 4:55PM ; [facility] Not using drugs 10/11/2021 Last Documented On 1 4:55PM ; [facility] Smoking packs of cigarettes per day 1 Last Documented On 1 4:55PM ; [facility] Currently 07/21/2019 Last Documented On 1 9:49AM ; [facility] Tobacco use 07/21/2019 Last Documented On 1 9:49AM ; [facility] Smoking Status Unknown Procedures and Surgical History Includes: Procedures from this encounter Procedures Code Diagnosis Performing Provider Service L ocation Service Date use of tobacco assessment performed 1000F Last Documented On 1 10:09AM ; [facility] review of medications documented 1160F Last Documented On 1 10:09AM ; [facility] Clinical summary provided to patient Last Documented On 1 10:09AM ; [facility] Surgical History Last Updated No Pacemaker 10/11/2021 Last Documented On 1 4:55PM ; [facility] Medical History Includes: Medical History addressed during this encounter Description Last Updated CT/MRI Lower back mri in 2017 10/11/2021 Last Documented On 1 4:55PM ; [facility] Currently wearing eyeglasses 10/11/2021 Last Documented On 1 4:55PM ; [facility] Injection/Nerve blocks 10/11/2021 Last Documented On 1 4:55PM ; [facility] No Pain Pump 10/11/2021 Last Documented On 1 4:55PM ; [facility] No Spinal cord stimulator 10/11/2021 Last Documented On 1 4:55PM ; [facility] Please list all surgeries: Laser 021 Last Documented On 1 4:55PM ; [facility] Uses a Knee Brace 10/11/2021 Last Documented On 1 4:55PM ; [facility] Family History Includes: Family History addressed during this encounter Description Last Updated Family history of ischemic heart disease 10/11/2021 Last Documented On 1 4:55PM ; [facility] Maternal history of Arthritis 10/11/2021 Last Documented On 1 4:55PM ; [facility] Maternal history of stroke/paralysis 01/2021 Last Documented On 1 4:55PM ; [facility] Review of Systems Includes: Review of Systems [...] Active Last Documented On 1 9:56AM ; [facility] Encounters Encounter Provider Location Date Check-In Time Check-Out Time Diagnosis PAIN MANAGEMENT NEW CONSULT ESTABLISHED SUZE ACEVES-[facility] 021 9:44AM 10:34AM Chronic Pain Syndrome,Sacroili itis,Intervertebr al Disc Degeneration - Lumbar,Bulging Intervertebral Disc Lumbar,Myalgia , Other Site (M79.18),Diabetes Mellitus Diabetic Peripheral Neuropathy Insurance Includes: Active Insurance Policies Plan Name Member ID Group # Subscriber Relationship Effect brice Dates 1 - [facility] [id number] [employer]ILL[employer] Clinical Notes Includes: Clinical Notes from this encounter No Clinical Notes Recorded
--- OUTSIDE RECORDS SUMMARY | 2025-10-30 16:00 | XMS_ITS | Clinical Summary ---
Author Organization [facility] Address [address] [place] [address] Care Team Providers Care Manager Front Office Name Role Phone Uyen Vieyra MD Primary Care Provider [phone] Source Comments [facility],non-owned Affiliates and Associated Physician Practices is amultiple site organization consisting of ambulatory clinics and hospital sitesin [place], [place], [place] and [place]. This disclosure is being madepursuant to the Care Everywhere program and may not contain all information available regarding this patient. 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 Do not modify or discontinue any currently active code status orders. Care Teams Manager Front Office Relationship Specialty Start Date End Date Uyen Vieyra MD [address] [place] [address] [place] [id number] PCP - General 07/16/18
--- OUTSIDE RECORDS SUMMARY | 2025-10-30 16:00 | XMS_ITS | Clinical Summary ---
Author Organization [facility] [address] Address [address] [place] [address] Care Team Providers Care Termite Control Technician Name Role Phone Aniceto Olivera MD Unavailable Miscellaneous, Not In File Unavailable Unava ilable Masha Amador ACCOUNTING MANAGER Primary Care Provider [phone] Keon Smith DPM Unavailable Allergies Active Allergy [...] fraction Assessment & Plan (10/22/2025 8:54 AM WASTEWATER TECHNICIAN): Patient with recent history NSTEMI noted present [...] therapy Assessment & Plan (10/21/2025 9:19 PM WASTEWATER TECHNICIAN): Patient with recent history NSTEMI noted present [...] 10/21/2025 Assessment & Plan (10/22/2025 7:15 AM WASTEWATER TECHNICIAN): Patient was continued on home Flomax 0.4mg Assessment & Plan (10/21/2025 9:19 PM WASTEWATER TECHNICIAN): Patient was continued on home Flomax 0.4mg Atrial flutter 10/21/2025 Assessment & Plan (10/22/2025 8:54 AM WASTEWATER TECHNICIAN): Patient with recent history NSTEMI noted present [...] therapy Assessment & Plan (10/21/2025 9:19 PM WASTEWATER TECHNICIAN): Patient with recent history NSTEMI noted present [...] 10/20/2025 Assessment & Plan (10/22/2025 8:54 AM WASTEWATER TECHNICIAN): Patient presenting with acute on chronic lower [...] results Assessment & Plan (10/21/2025 9:19 PM WASTEWATER TECHNICIAN): Patient presenting with acute on chronic lower [...] successful. 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 SCr on admission of 1.7. -Daily BMP, renally dose medications, avoid nephrotoxic agents Assessment & Plan (10/21/2025 9:19 PM WASTEWATER TECHNICIAN): Patient with history of CKD with SCr [...] 05/19/2025 Assessment & Plan (10/22/2025 8:54 AM WASTEWATER TECHNICIAN): Patient with recent history NSTEMI noted present [...] therapy Assessment & Plan (10/21/2025 9:19 PM WASTEWATER TECHNICIAN): Patient with recent history NSTEMI noted present for 10/01/2025 status post PCI to the proximal RCA noted to have 80% stenosis with RSOA placed. LHC also notable for 40% stenosis [...] 05/19/2025 Assessment & Plan (10/22/2025 7:15 AM WASTEWATER TECHNICIAN): Patient with history of anemia and follows with [facility] Hematology. Etiology of chronic normocytic anemia believed [...] 04/14/2025 Assessment & Plan (10/22/2025 8:54 AM WASTEWATER TECHNICIAN): Patient presenting with acute on chronic lower [...] results Assessment & Plan (10/21/2025 9:19 PM WASTEWATER TECHNICIAN): Patient presenting with acute on chronic lower [...] 11/24/2024 Assessment & Plan (10/22/2025 7:15 AM WASTEWATER TECHNICIAN): Patient was continued on home regimen of Atorvastatin 40mg. Assessment & Plan (10/21/2025 9:19 PM WASTEWATER TECHNICIAN): Patient was continued on home regimen of [...] the last month. He was following with [facility] wound care and had a [...] 2 days ago -he was using some fur dry cleaner hand -started as red bumps that he itched and now are scabbing over -very itching, no pain or burning -he did apply some benadryl along with oral benadryl and it has been improving Continue with benadryl cream, he does have some triamcinolone at home, I encouraged him to use. S/P MVR (mitral valve repair) 04/07/2024 Overview (04/07/2024): -10/01 presented to [facility], respiratory failure, L pleural effusion, chest tube -transferred to [facility] [place] developed pneumonia, trach and peg placed, found to have MR with MV perforation, concerning for endocarditis -transferred to [facility] 11/18/2023 -OR 11/25/2023 for MVR -12/02/2023 fever with positive blood cultures, TWAN, also found to have UPJ obstruction and right renal stone -12/14 stent placed with urology -12/20/2023, redo MVR -discharge to new ulm 01/01/2024 -cardiology prescribing eliquis, metoprolol, aspirin, he is no longer taking atorvastatin, reports he was told to discontinue (I do not see this in chart) Encouraged to continue with cardiology and reach out as far as atorvastatin. Assessment & Plan (10/22/2025 8:54 AM WASTEWATER TECHNICIAN): Patient with recent history NSTEMI noted present [...] therapy Assessment & Plan (10/21/2025 9:19 PM WASTEWATER TECHNICIAN): Patient with recent history NSTEMI noted present [...] daily Assessment & Plan (10/22/2025 7:15 AM WASTEWATER TECHNICIAN): Patient was continued on home Pantoprazole 40mg daily. Assessment & Plan (10/21/2025 9:19 PM WASTEWATER TECHNICIAN): Patient was continued on home Pantoprazole 40mg daily. Assessment & Plan (07/21/2024 3:35 PM CDT): Continue PPI Anxiety 04/07/2024 Overview (07/24/2025): -sertraline 200mg daily -needs refill today -overall well controlled -a lot going on, still admitted, he recently had another partial left toe amputation Refilled. Assessment & Plan (10/22/2025 7:15 AM WASTEWATER TECHNICIAN): Patient was continued on home Sertraline 100mg daily. Assessment & Plan (10/21/2025 9:19 PM WASTEWATER TECHNICIAN): Patient was continued on home Sertraline 100mg [...] 12/30/2023 Assessment & Plan (12/30/2023 3:44 PM WASTEWATER TECHNICIAN): Developed on posterior neck on 12/27 -Continue Triamcinolone cream GI bleed 12/16/2023 Assessment & Plan (12/25/2023 11:19 AM WASTEWATER TECHNICIAN): EGD on 12/15: bleeding AVM in stomach, [...] AM. Assessment & Plan (12/18/2023 1:25 PM WASTEWATER TECHNICIAN): Bowel prep last night with FCD inserted, [...] mgmt. Assessment & Plan (12/25/2023 11:13 AM WASTEWATER TECHNICIAN): Urology consulted 12/11 to renal calculus and [...] 12/04/2023 Assessment & Plan (12/21/2023 4:05 PM WASTEWATER TECHNICIAN): Patient fevered on 12/02 with blood cultures [...] recommendations. Assessment & Plan (12/26/2023 12:45 PM WASTEWATER TECHNICIAN): Continue Micafungin TWAN reviewed by Dr Giron, with perivalvular leak, possible caused by infection S/p redo MVR Urology c/s- concerns that renal stone may be source of infection- signed off, continue IV abx per ID team Acute post-operative pain 11/29/2023 Assessment & Plan (12/30/2023 3:40 PM WASTEWATER TECHNICIAN): To be expected following cardiac surgery Continue PRN Oxycodone Continue Gabapentin, Robaxin Continue Lidocaine patch Utilize splinting technique Acute blood loss anemia 11/29/2023 Assessment & Plan (12/30/2023 3:40 PM WASTEWATER TECHNICIAN): Expected finding post op brett MVR and GIB prior to the 2nd MV surgery - GI consutled 2/4 and AVM clips to stomach preformed - now stable H/H -Daily CBC, hgb 7.7 last night -Consider transfusion if hgb <7 or if hemodynamically unstable -Repeat EGD 12/18 without evidence of bleeding-continue bid PPI 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 Assessment & Plan (12/24/2023 3:40 PM WASTEWATER TECHNICIAN): Patient is a 42 y.o. male with PMH significant for uncontrolled T2DM c/b foot ulcer, PSA (tobacco, alcohol, and MJ no IVDU), multiple thormbi (bilateral LE DVTs, non-occlusive PE), atrial flutter, hypertension, empyema of left pleural space, and COPD who was originally admitted to OSH for AHRF ISO pneumonia and was transferred to [facility] for surgical evaluation of MR with MV [...] mitral valve placed 11/25. In OR his tatitlek valve had a large perforation in posterior [...] out. 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 -Continue while inpatient Assessment & Plan (10/21/2025 9:19 PM WASTEWATER TECHNICIAN): Home regimen of Losartan 50mg, Coreg25 BID, [...] SARAH Assessment & Plan (12/28/2023 6:08 PM WASTEWATER TECHNICIAN): -Monitor VS Q4H -Continue Metoprolol at current [...] oxycodone. Assessment & Plan (12/30/2023 3:43 PM WASTEWATER TECHNICIAN): -Patient reports he developed sacral wound at OSH -Continue wound care, wound team following -Continue topical Lidocaine for pain control Polysubstance abuse 11/29/2023 Assessment & Plan (12/28/2023 6:08 PM WASTEWATER TECHNICIAN): Hx of alcohol, marijuana and tobacco abuse Severe protein-calorie malnutrition 11/19/2023 Assessment & Plan (12/31/2023 4:55 PM WASTEWATER TECHNICIAN): Oral intake continues to improve G tube being flushed only, no feedings PEG tube (placed on 11/04 at OSH) -Corporate Development Analyst following, appreciate recs Severe mitral regurgitation 11/18/2023 Assessment & Plan (12/31/2023 4:55 PM WASTEWATER TECHNICIAN): -s/p MVR (#33mm [facility] [employer]) on 11/25/2312/20: [...] removed on 12/29 Working on placement at [facility] (LTAC) Tachycardia 11/08/2023 Oliguria 11/08/2023 Type 2 diabetes mellitus wit h diabetic polyneuropathy, with long-term current use of insulin 11/07/2023 Overview (06/07/2024): -lantus 18 units nightly -last A1c 6.1 -on metformin before with upset stomach Will decrease lantus to 15 units, start metformin 500mg XR, reviewed side effects and take with food. Assessment & Plan (10/22/2025 7:15 AM WASTEWATER TECHNICIAN): Patient with history of T2DM on Jardiance 10mg daily. HbA1c in 2024 of 6.3 % -Continue to monitor with POC BG TIDAC, SSI -Continue home Gabapentin 400mg TID for neuropathic pain Assessment & Plan (10/21/2025 9:19 PM WASTEWATER TECHNICIAN): Patient with history of T2DM on Jardiance [...] coverage Assessment & Plan (12/30/2023 3:39 PM WASTEWATER TECHNICIAN): 10/01/23 A1C 9.5 On Lantus and Humalog [...] month Assessment & Plan (10/22/2025 8:54 AM WASTEWATER TECHNICIAN): Patient presenting with acute on chronic lower [...] results Assessment & Plan (10/21/2025 9:19 PM WASTEWATER TECHNICIAN): Patient presenting with acute on chronic lower [...] 20mg daily upon discharge -Recommend discussion w sql etl developer/cardiac surgeon regarding proposed duration of anticoagulation on outpatient follow up Assessment & Plan (12/17/2023 11:10 AM WASTEWATER TECHNICIAN): Last Doppler (10/26/23): +DVT right posterior tibial and peroneal veins and in the bilateral gastrocnemius veins -Holding anticoagulation with Bival and Coumadin due to GIB (See GIB problem) Moderate malnutrition 10/02/2023 Septic shock 09/29/2023 Acute respiratory failure 09/28/2023 Assessment & Plan (12/31/2023 4:55 PM WASTEWATER TECHNICIAN): OSH course complicated by pericardial effusion, pneumonia [...] 024 Assessment & Plan (12/12/2023 12:20 PM WASTEWATER TECHNICIAN): Continue to give FFP to get INR <1.5 for OR Check LFT Dc acetaminophen until LFT results If LFT elevated should stop statin also Drainage from wound 12/11/2023 12/23/19 24 Assessment & Plan (12/23/2023 2:52 PM WASTEWATER TECHNICIAN): Sternal wound drainage, Dr. Olivera aware Has two sites of drainage today, cx from 12/15 negative and final Perivalvular leak of prosthetic heart valve 12/10/2023 12/23/2023 Assessment & Plan (12/31/2023 4:56 PM WASTEWATER TECHNICIAN): Consider causes for PVL, fragile tissue or infection ID continues to work the infectious cause, consideration of renal calculus as contributing cause Hyponatremia 11/29/2023 12/18/2023 Assessment & Plan (12/17/2023 11:19 AM WASTEWATER TECHNICIAN): -na 133 today -continue to monitor -Monitor [...] Type Department Care Team Description 10/27/[address] [facility] Cardiology [address] [place] [address] [place] [phone] Leigh Grey NP 10/26/2025 3:00 PM WASTEWATER TECHNICIAN Office Visit 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 angina pectoris (Primary Dx); Presence of stent in coronary artery; Stage 3b chronic kidney disease (HCC); S/P MVR (mitral valve repair); Hospital discharge follow-up 10/25/2025 Telephone [facility] [address] [place] [address] Medical Office Building [address], [address] [place] [phone] Arely Mehta RN pain medication 10/25/2025 [facility] [address] [place] [address] [place] [address] Masha Amador NP Leg swelling (Primary Dx) 10/24/2025 Orders [facility] [address] [place] [address] [place] [address] Masha Amador NP 10/23/2025 11:00 AM WASTEWATER TECHNICIAN Office Visit [facility] Medicine [facility] [address] [place] [address] [place] [address] Masha Amador NP Trigger ring finger of left hand (Primary Dx); Leg swelling 10/23/2025 [facility] Transitional Care Outreach [facility] Medicine Care Coordination [address] [place] [phone] Kellee Flores RN 10/20/2025 4:37 PM WASTEWATER TECHNICIAN - 10/22/2025 2:36 PM WASTEWATER TECHNICIAN Hospital Encounter [facility] [address] [place] [address] Kellee Aguirre MD Baum, MD Luba Gandhi, Regis Gómez MD Lower extremity edema (Primary Dx); T wave inversion in EKG; Right leg pain; Anxiety Discharge Disposition: Discharge to home or self care 10/13/2025 Orders Only [facility] Medical Group Cardiology [address] [place] [address] Marlene Vallecillo MD 10/12/2025 Orders Only [facility] Medical [facility] Cardiology [address] [place] [address] Mikey Pedro MD 10/11/2025 Telephone [facility] Cardiology [address] [facility] 8th [place] [address] [place] [phone] Nila Davis MD 10/04/2025 Telephone [facility] Medical [facility] Cardiology [address] [place] [phone] Elinor Flynn NP 08/11/2025 1:00 PM CDT Office Visit [facility] Medicine Surgery [address] [facility] Medical Office Building [address] [place] [phone] Keon Smith, DPM Diabetic ulcer of toe [...] LEFT TOE; Surgeon: Keon Smith DPM; Location: [facility] OR POD 2; Service: Podiatry Foot / [...] How often do you attend chur or mormon services? 1 to 4 times per year 05/21/2025 Do you belong to any clubs o r organizations such as episcopal groups, unions, fraternal or athletic groups, or [...] Date Recorded PHQ-2 Total Score 0 10/22/2025 [facility] Occupat ional Health - Occupational Stress [...] place to sleep or slept in a [place] facility (including now)? No 11/25/2023 Housing Stability Vital Sign Answer Anthony e Recorded In the last 12 months, was t here a time when you were not able to pay the mortgage or rent on time? No 05/21/2025 In the past 12 months, how m any times have you moved where you were living? 0 05/21/2025 At any time in the past 12 m [facility], were you homeless or living in a [place] facility (including now)? No 05/21/2025 Social Connection and Isolation Panel Answer Date Recorded In a typical week, how many times do you talk on the phone with family, friends, or neighbors? More than three times a week 10/22/2025 How often do you get togethe r with friends or relatives? More than three times a week 10/22/2025 How often do you attend chur or mormon services? 1 to 4 times per year 10/22/2025 Do you belong to any clubs o r organizations such as episcopal groups, unions, fraternal or athletic groups, or [...] any time in the past 12 m [facility], were you homeless or living in a [place] facility (including now)? No 10/22/2025 [facility] Utilities Answer Date Recorded In the past 12 months has th [employer], gas, oil, or water company threatened [...] on file Legal Sex Male 2:41 PM WASTEWATER TECHNICIAN Gender Identity Not on file Sexual Orientation Not on file Last Filed Vital Signs Vital Sign Reading Time Taken Comments Blood Pressure 118/56 10/26/2025 2:52 PM WASTEWATER TECHNICIAN Pulse 58 10/26/2025 2:52 PM WASTEWATER TECHNICIAN Temperature 36.6 C (97.9 F) 10/23/2025 11:05 AM WASTEWATER TECHNICIAN Respiratory Rate 16 10/23/2025 11:05 AM WASTEWATER TECHNICIAN Oxygen Saturation 98% 10/26/2025 2:52 PM WASTEWATER TECHNICIAN Inhaled Oxygen Concentration - - Weight 100.7 kg (222 lb) 10/26/2025 2:52 PM WASTEWATER TECHNICIAN Height 182.9 cm (6') 10/26/2025 2:52 PM WASTEWATER TECHNICIAN Body Mass Index 30.11 10/26/2025 2:52 PM WASTEWATER TECHNICIAN Plan of Treatment Scheduled Procedures Name Priority [...] Completed 12/02/2024 Medical Devices Implanted Type Area Architect Device Identifier Shelf Expiration Date Model / Serial / Lot [employer] [id number] Fr L30 Cm L145 Cm Radiopaque; Positioner; Flexible; Guidewire - [id number] Implanted:Qty: 1 on 12/14/2023 by Dayton Case MD at [facility] Stent Right: Ureter [employer] [id number] 02/16/2024 [id number] / / [id number] [employer] Masters-Series 33mm 26.1mm Mechanical Standard Cuff Style [id number] - [id number] - [id number] Implanted:Qty: 1 on 11/25/2023 by Aniceto Olivera MD at [facility] N/A: Heart [employer] [id number] 12/20/2024 [id number] / [id number] / [employer] Supple Evelyn-Guard Adrian Processing 4x4cm Patch Cardiovascular [id number] - [id number] Implanted:Qty: 1 on 12/20/2023 by Aniceto Olivera MD at [facility] [employer] [id number] 04/20/2024 [id number] / / [id number]- [id number] [employer] Hdz Mitral Valve 29mm [id number] - [id number] - [id number] Implanted:Qty: 1 on 12/20/2023 by Aniceto Olivera MD at [facility] N/A: Heart [employer] [id number] 12/29/2025 [id number] / [id number] / Procedures Procedure Name Priority Date/Time Associated Diagnosis Comments POCT GLUCOSE DEVICE Routine 10/22/2025 1 2:15 PM WASTEWATER TECHNICIAN POCT GLUCOSE DEVICE Routine 10/22/2025 8 :18 AM WASTEWATER TECHNICIAN EGFR Timed 10/21/2025 9:17 PM WASTEWATER TECHNICIAN COMPREHENSIVE METABOLIC PANEL Timed 10/21/2025 9:17 PM WASTEWATER TECHNICIAN CBC WITHOUT DIFFERENTIAL Timed 10/21/2025 9:17 PM WASTEWATER TECHNICIAN POCT GLUCOSE DEVICE Routine 10/21/2025 8 :20 PM WASTEWATER TECHNICIAN POCT GLUCOSE DEVICE Routine 10/21/2025 5 :40 PM WASTEWATER TECHNICIAN POCT GLUCOSE DEVICE Routine 10/21/2025 1 2:34 PM WASTEWATER TECHNICIAN POCT GLUCOSE DEVICE Routine 10/21/2025 8 :02 AM WASTEWATER TECHNICIAN POCT GLUCOSE DEVICE Routine 10/21/2025 4 :01 AM WASTEWATER TECHNICIAN POCT GLUCOSE DEVICE Routine 10/21/2025 1 2:58 AM WASTEWATER TECHNICIAN TROPONIN I HIGH-SENSITIVITY 2-HOUR Timed 10/20/2025 8:02 PM WASTEWATER TECHNICIAN ECG 12-LEAD STAT 10/20/2025 7:59 PM WASTEWATER TECHNICIAN POCT GLUCOSE DEVICE Routine 10/20/2025 7 :54 PM WASTEWATER TECHNICIAN POCT GLUCOSE DEVICE Routine 10/20/2025 6 :08 PM WASTEWATER TECHNICIAN TROPONIN I HIGH-SENSITIVITY SERIES (BASELINE, 2HR, 4HR, 6HR) STAT 10/20/2025 6:06 PM WASTEWATER TECHNICIAN HEMOGLOBIN A1C STAT 10/20/2025 5:45 PM WASTEWATER TECHNICIAN THYROID FUNCTION CASCADE STAT 10/20/2025 5:45 PM WASTEWATER TECHNICIAN EGFR STAT 10/20/2025 5:45 PM WASTEWATER TECHNICIAN DIFFERENTIAL AUTO STAT 10/20/2025 5:4 5 PM WASTEWATER TECHNICIAN PRO B-TYPE NATRIURETIC PEPTIDE STAT 10/20/2025 5:45 PM WASTEWATER TECHNICIAN CRP (ACUTE PHASE) STAT 10/20/2025 5:4 5 PM WASTEWATER TECHNICIAN ERYTHROCYTE SEDIMENTATION RATE STAT 10/20/2025 5:45 PM WASTEWATER TECHNICIAN SEPSIS LACTATE WITH REFLEX STAT 10/20/2025 5:45 PM WASTEWATER TECHNICIAN CBC WITH AUTO DIFFERENTIAL STAT 10/20/2025 5:45 PM WASTEWATER TECHNICIAN COMPREHENSIVE METABOLIC PANEL STAT 10/20/2025 5:45 PM WASTEWATER TECHNICIAN POCT GLUCOSE DEVICE Routine 10/20/2025 3 :58 PM WASTEWATER TECHNICIAN POCT KETONE, BLOOD Routine 10/20/2025 3: 58 PM WASTEWATER TECHNICIAN CARDIOLOGY DOCUMENT SCAN Routine 10/04/2025 3:31 PM WASTEWATER TECHNICIAN CARDIOLOGY DOCUMENT SCAN Routine 10/03/2025 1:52 PM WASTEWATER TECHNICIAN CARDIOLOGY DOCUMENT SCAN Routine 10/03/2025 1:50 PM WASTEWATER TECHNICIAN CARDIOLOGY DOCUMENT SCAN Routine 10/02/2025 1:49 PM WASTEWATER TECHNICIAN CARDIOLOGY DOCUMENT SCAN Routine 10/02/2025 1:44 PM WASTEWATER TECHNICIAN CARDIOLOGY DOCUMENT SCAN Routine 10/01/2025 1:42 PM WASTEWATER TECHNICIAN CARDIOLOGY DOCUMENT SCAN Routine 09/30/2025 1:31 PM WASTEWATER TECHNICIAN ALBUMIN CREATININE RATIO, URINE Routine 06/09/2025 10:33 AM CDT Nephrotic range proteinuria LIPID PANEL STAT 05/18/2025 11:05 PM CDT HEPATITIS C ANTIBODY Routine 12/02/2024 8:40 PM WASTEWATER TECHNICIAN from Last 3 Months or Most Recently Relevant to Health Maintenance Results * POCT glucose (10/22/2025 12:15 PM WASTEWATER TECHNICIAN) Glucose, POC 153 70 - 199 mg/dL Blood 10/22/2025 12:1 5 PM WASTEWATER TECHNICIAN 10/22/2025 12:15 PM WASTEWATER TECHNICIAN Regis Verduzco MD LAB POCT ORDERABLES - DEVICE Final Result Performing Organization Address [facility] Co de Phone Number [facility] Department [place] [address] * POCT glucose (10/22/2025 8:18 AM WASTEWATER TECHNICIAN) Glucose, POC 89 70 - 199 mg/dL Blood 10/22/2025 8:18 AM WASTEWATER TECHNICIAN 10/22/2025 8:18 AM WASTEWATER TECHNICIAN Regis Verduzco MD LAB POCT ORDERABLES - DEVICE Final Result Performing Organization Address [facility] de Phone Number [facility] Department [place] [address] * (ABNORMAL) eGFR (10/21/2025 9:17 PM WASTEWATER TECHNICIAN) eGFR 47(L) >=60 mL/min/1. 73 m2 Comment: [...] last reviewed 2021. Blood 10/21/2025 9:17 PM WASTEWATER TECHNICIAN 10/21/2025 9:52 PM WASTEWATER TECHNICIAN Result [facility] Regis Verduzco MD LAB BLOOD ORDERABLES Final Re sult Performing Organization Address City/[facility] Co de Phone Number [facility] [place] [address] * (ABNORMAL) CBC without differential (10/21/2025 9:17 PM WASTEWATER TECHNICIAN) WBC 4.35 3.80 - 9.90 K/cumm Hgb 9.0(L) 13.0 - 17.5 g/dL [facility] Hct 28.6(L) 38.9 - 50.3 % [facility] Plt 175 150 - 400 K/cumm [facility] MPV 12.3 9.1 - 12.3 fL [facility] RBC 3.29(L) 4.30 - 5.80 M/cumm [facility] MCV 86.9 81.3 - 96.4 fL [facility] MCH 27.4 27.1 - 33.3 pg [facility] MCHC 31.5(L) 32.3 - 35.7 g/dL [facility] RDW CV 15.5(H) 11.1 - 14.9 % [facility] RDW SD 49.8(H) 35.7 - 48.1 fL [facility] NRBC abs 0.00 0.00 - 0.01 K/cumm [facility] Blood 10/21/2025 9:17 PM WASTEWATER TECHNICIAN 10/21/2025 9:52 PM WASTEWATER TECHNICIAN Regis Verduzco MD LAB BLOOD ORDERABLES Final Re sult Performing Organization Address City/[facility]/ZIP Co de Phone Number [facility] Department [place] [address] * (ABNORMAL) Comprehensive metabolic panel (10/21/2025 9:17 PM WASTEWATER TECHNICIAN) Sodium 137 135 - 145 mmol/L Potassium, pl 4.0 3.3 - 4.9 mmol/L [facility] Chloride 108 97 - 110 mmol/L [facility] CO2 19(L) 22 - 32 mmol/L [facility] Anion gap 10 2 - 15 mmol/L [facility] BUN 22 6 - 25 mg/dL [facility] Creatinine 1.80(H) 0.80 - 1.30 mg/dL [facility] Glucose 132 70 - 199 mg/dL [facility] Comment: Interpretive Data Fasting glucose >/= [...] 2022. Calcium 8.4(L) 8.5 - 10.3 mg/dL [facility] Bilirubin, total 0.3 0.1 - 1.2 mg/dL [facility] Protein, pl 7.7 6.5 - 8.5 g/dL [facility] Albumin 3.9 3.5 - 5.0 g/dL [facility] [facility] Alk phos 189(H) 40 - 130 Units/L [facility] ALT 8 7 - 55 Units/L [facility] AST 21 10 - 50 Units/L [facility] Blood 10/21/2025 9:17 PM WASTEWATER TECHNICIAN 10/21/2025 9:52 PM WASTEWATER TECHNICIAN us Regis Verduzco MD LAB BLOOD ORDERABLES Final Re sult [facility] Department [place] [address] * POCT glucose (10/21/2025 8:20 PM WASTEWATER TECHNICIAN) Glucose, POC 158 70 - 199 mg/dL Blood 10/21/2025 8:20 PM WASTEWATER TECHNICIAN 10/21/2025 8:20 PM WASTEWATER TECHNICIAN Regis Verduzco MD LAB POCT ORDERABLES - DEVICE Final Result Performing Organization Address [facility]/[place] Co de Phone Number [facility] [place] [address] * POCT glucose (10/21/2025 5:40 PM WASTEWATER TECHNICIAN) Glucose, POC 138 70 - 199 mg/dL Blood 10/21/2025 5:40 PM WASTEWATER TECHNICIAN 10/21/2025 5:40 PM WASTEWATER TECHNICIAN Kellee Aguirre MD LAB POCT ORDERABLES - D EVICE Final Result Performing Organization Address [facility]/[place] Co de Phone Number [facility] [place] [address] * POCT glucose (10/21/2025 12:34 PM WASTEWATER TECHNICIAN) Glucose, POC 135 70 - 199 mg/dL Blood 10/21/2025 12:3 4 PM WASTEWATER TECHNICIAN 10/21/2025 12:34 PM WASTEWATER TECHNICIAN Kellee Aguirre MD LAB POCT ORDERABLES - D EVICE Final Result Performing Organization Address [facility] Co de Phone Number [facility] [place] [address] * POCT glucose (10/21/2025 8:02 AM WASTEWATER TECHNICIAN) Glucose, POC 96 70 - 199 mg/dL Blood 10/21/2025 8:02 AM WASTEWATER TECHNICIAN 10/21/2025 8:02 AM WASTEWATER TECHNICIAN Kellee Agurire MD LAB POCT ORDERABLES - D EVICE Final Result Performing Organization Address [facility] Co de Phone Number [facility] [place] [address] * POCT glucose (10/21/2025 4:01 AM WASTEWATER TECHNICIAN) Glucose, POC 133 70 - 199 mg/dL Blood 10/21/2025 4:01 AM WASTEWATER TECHNICIAN 10/21/2025 4:01 AM WASTEWATER TECHNICIAN Kellee Aguirre MD LAB POCT ORDERABLES - D EVICE Final Result Performing Organization Address [facility]/[place] Co de Phone Number [facility] [place] [address] * POCT glucose (10/21/2025 12:58 AM WASTEWATER TECHNICIAN) Glucose, POC 180 70 - 199 mg/dL Blood 10/21/2025 12:5 8 AM WASTEWATER TECHNICIAN 10/21/2025 12:58 AM WASTEWATER TECHNICIAN Kellee Aguirre MD LAB POCT ORDERABLES - D EVICE Final Result Performing Organization Address [facility] de Phone Number [facility] [place] [address] * Troponin I high-sensitivity 2-hour (10/20/2025 8:02 PM WASTEWATER TECHNICIAN) Trop I hs 30 <=35 ng/L Comment: Interpretive Data For further hscTnI resources including the diagnostic algorithm and an aid in interpretation, copy and paste this link: https://bjhlab.testcatalog.org/show/hsTrop-1 Current Interpretive Data last revised 2020. Trop I hs delta 0 ng/L [facility] Trop I hs interp Insignificant [facility] Blood 10/20/2025 8:02 PM WASTEWATER TECHNICIAN 10/20/2025 8:15 PM WASTEWATER TECHNICIAN Reina Red MD LAB BLOOD ORDERABLES Final Resul t Performing Organization Address [facility] de Phone Number [facility] Department [place] [address] * ECG 12-LEAD (10/20/2025 7:59 PM WASTEWATER TECHNICIAN) Narrative [facility] - 10/20/2025 7:59 PM WASTEWATER TECHNICIAN Kellee Aguirre MD 10/20/2025 8:02 PM ECG [...] ECG ORDERABLES Final Result Performing Organization Address [facility] de Phone Number [facility] * POCT glucose (10/20/2025 7:54 PM WASTEWATER TECHNICIAN) Glucose, POC 122 70 - 199 mg/dL Blood 10/20/2025 7:54 PM WASTEWATER TECHNICIAN 10/20/2025 7:54 PM WASTEWATER TECHNICIAN Kellee Aguirre MD LAB POCT ORDERABLES - D EVICE Final Result Performing Organization Address [facility]/[place] Co de Phone Number [facility] Department [place] [address] * POCT glucose (10/20/2025 6:08 PM WASTEWATER TECHNICIAN) Glucose, POC 83 70 - 199 mg/dL Blood 10/20/2025 6:08 PM WASTEWATER TECHNICIAN 10/20/2025 6:08 PM WASTEWATER TECHNICIAN us Kellee Aguirre MD LAB POCT ORDERABLES - D LO Final Result Performing Organization Address [facility]/[place] [address] * Troponin I high-sensitivity series (baseline, 2hr, 4hr, 6hr) (10/20/2025 6:06 PM WASTEWATER TECHNICIAN) [facility] Trop I hs 30 <=35 ng/L Comment: Interpretive Data For further hscTnI resources including the diagnostic algorithm and an aid in interpretation, copy and paste this link: https://bjhlab.testcatalog.org/show/hsTrop-1 Current Interpretive Data last revised 2020. Blood 10/20/2025 6:06 PM WASTEWATER TECHNICIAN 10/20/2025 6:20 PM WASTEWATER TECHNICIAN us Reina Red MD LAB BLOOD ORDERABLES Final Resul t Performing Organization Address [facility]/[place] [address] * Sepsis Lactate w/ Reflex (10/20/2025 5:45 PM WASTEWATER TECHNICIAN) [facility] Sepsis Lactate 1.3 0.7 - 2.0 mmol/L Blood 10/20/2025 5:45 PM WASTEWATER TECHNICIAN 10/20/2025 6:03 PM WASTEWATER TECHNICIAN us Reina Red MD LAB BLOOD ORDERABLES Final Resul t Performing Organization Address [facility]/[place] Co de Phone Number [facility] [place] [address] * (ABNORMAL) eGFR (10/20/2025 5:45 PM WASTEWATER TECHNICIAN) [facility] eGFR 50(L) >=60 mL/min/1. 73 m2 Comment: [...] last reviewed 2021. Blood 10/20/2025 5:45 PM WASTEWATER TECHNICIAN 10/20/2025 6:19 PM WASTEWATER TECHNICIAN us Reina Red MD LAB BLOOD ORDERABLES Final Resul t [facility] Department [place] [address] * Differential, auto (10/20/2025 5:45 PM WASTEWATER TECHNICIAN) [facility] Neutrophil abs 2.94 1.50 - 6.50 K/cumm Imm gran abs 0.02 0.00 - 0.10 K/cumm [facility] Lymphocyte abs 1.85 0.80 - 3.30 K/cumm [facility] Monocyte abs 0.37 0.20 - 0.80 K/cumm [facility] Eosinophil abs 0.20 0.00 - 0.50 K/cumm [facility] Basophil abs 0.06 0.00 - 0.10 K/cumm [facility] Neutrophil pct 54.0 % [facility] Comment: Interpretive Data Percent cell count reference ranges are not reported, since discordance with absolute values may lead to misinterpretation of CBC data. Current Interpretive Data was last revised on 2018. Imm gran pct 0.4 % [facility] Comment: Interpretive Data Percent cell count reference ranges are not reported, since discordance with absolute values may lead to misinterpretation of CBC data. Current Interpretive Data was last revised on 2018. Lymphocyte pct 34.0 % [facility] Comment: Interpretive Data Percent cell count reference ranges are not reported, since discordance with absolute values may lead to misinterpretation of CBC data. Current Interpretive Data was last revised on 2018. Monocyte pct 6.8 % [facility] Comment: Interpretive Data Percent cell count reference ranges are not reported, since discordance with absolute values may lead to misinterpretation of CBC data. Current Interpretive Data was last revised on 2018. Eosinophil pct 3.7 % [facility] Comment: Interpretive Data Percent cell count reference ranges are not reported, since discordance with absolute values may lead to misinterpretation of CBC data. Current Interpretive Data was last revised on 2018. Basophil pct 1.1 % [facility] Comment: Interpretive Data Percent cell count reference ranges are not reported, since discordance with absolute values may lead to misinterpretation of CBC data. Current Interpretive Data was last revised on 2018. Blood 10/20/2025 5:45 PM WASTEWATER TECHNICIAN 10/20/2025 6:19 PM WASTEWATER TECHNICIAN us Reina Red MD LAB BLOOD ORDERABLES Final Resul t [facility] Department [place] [address] * (ABNORMAL) Pro B-type natriuretic peptide (10/20/2025 5:45 PM WASTEWATER TECHNICIAN) NT-proBNP 8,037(H) <=300 pg/mL Comment: Interpretive Comments: [...] Revised Date: 2018. Blood 10/20/2025 5:45 PM WASTEWATER TECHNICIAN 10/20/2025 6:19 PM WASTEWATER TECHNICIAN us Reina Red MD LAB BLOOD ORDERABLES Final Resul t Performing Organization Address [facility]/[place] Co de Phone Number [facility] [place] [address] * Thyroid Function Daykin (10/20/2025 5:45 PM WASTEWATER TECHNICIAN) TSH 0.91 0.30 - 4.20 mcIUnit/mL Blood 10/20/2025 5:45 PM WASTEWATER TECHNICIAN 10/20/2025 6:19 PM WASTEWATER TECHNICIAN us Regis Verduzco MD LAB BLOOD ORDERABLES Final Re sult Performing Organization Address [facility]/[place] Co de Phone Number [facility] [place] [address] * (ABNORMAL) CBC with auto differential (10/20/2025 5:45 PM WASTEWATER TECHNICIAN) [facility] WBC 5.44 3.80 - 9.90 K/cumm Hgb 10.1(L) 13.0 - 17.5 g/dL [facility] Hct 31.5(L) 38.9 - 50.3 % [facility] Plt 198 150 - 400 K/cumm [facility] MPV 12.1 9.1 - 12.3 fL [facility] RBC 3.64(L) 4.30 - 5.80 M/cumm [facility] MCV 86.5 81.3 - 96.4 fL [facility] MCH 27.7 27.1 - 33.3 pg [facility] MCHC 32.1(L) 32.3 - 35.7 g/dL [facility] RDW CV 15.8(H) 11.1 - 14.9 % [facility] RDW SD 50.3(H) 35.7 - 48.1 fL [facility] NRBC abs 0.03(H) 0.00 - 0.01 K/cumm [facility] Blood 10/20/2025 5:45 PM WASTEWATER TECHNICIAN 10/20/2025 6:19 PM WASTEWATER TECHNICIAN us Reina Red MD LAB BLOOD ORDERABLES Final Resul t Performing Organization Address City/[facility]/[place] Co de Phone Number [facility] [place] [address] * (ABNORMAL) Erythrocyte sedimentation rate (10/20/2025 5:45 PM WASTEWATER TECHNICIAN) [facility] Erythrocyte sedimentation rate 41(H) 1 - 15 mm/hr Blood 10/20/2025 5:45 PM WASTEWATER TECHNICIAN 10/20/2025 6:19 PM WASTEWATER TECHNICIAN us Reina Red MD LAB BLOOD ORDERABLES Final Resul t [facility] [place] [address] * CRP (acute phase) (10/20/2025 5:45 PM WASTEWATER TECHNICIAN) [facility] CRP 4.2 <=10.0 mg/L Blood 10/20/2025 5:45 PM WASTEWATER TECHNICIAN 10/20/2025 6:19 PM WASTEWATER TECHNICIAN Reina Red MD LAB BLOOD ORDERABLES Final Resul t Performing Organization Address [facility] de Phone Number [facility] Department [place] [address] * Hemoglobin A1c (10/20/2025 5:45 PM WASTEWATER TECHNICIAN) [facility] Hgb A1C 5.5 4.0 - 5.6 % Estimated Average Glucose 111 mg/dL [facility] Comment: The ADA recommends reporting an estimated Average Glucose (eAG) with all Hemoglobin A1c results using the equation derived from a study of 507 normal and diabetic adults. Minority populations were underrepresented and children were not included. (Diabetes Care 2020; 43(S1): S66-S76). The eAG is not equivalent to a fasting glucose. Blood 10/20/2025 5:45 PM WASTEWATER TECHNICIAN 10/20/2025 6:23 PM WASTEWATER TECHNICIAN Result [facility] Regis Verduzco MD LAB BLOOD ORDERABLES Final Re sult Performing Organization Address [facility] de Phone Number [facility] [place] [address] * (ABNORMAL) Comprehensive metabolic panel (10/20/2025 5:45 PM WASTEWATER TECHNICIAN) [facility] Sodium 140 135 - 145 mmol/L Potassium, pl 4.4 3.3 - 4.9 mmol/L [facility] Chloride 107 97 - 110 mmol/L [facility] CO2 19(L) 22 - 32 mmol/L [facility] Anion gap 14 2 - 15 mmol/L [facility] BUN 29(H) 6 - 25 mg/dL [facility] Creatinine 1.72(H) 0.80 - 1.30 mg/dL [facility] Glucose 127 70 - 199 mg/dL [facility] Comment: Interpretive Data Fasting glucose >/= [...] 2022. Calcium 9.0 8.5 - 10.3 mg/dL [facility] Bilirubin, total 0.2 0.1 - 1.2 mg/dL [facility] Protein, pl 8.5 6.5 - 8.5 g/dL [facility] Albumin 4.1 3.5 - 5.0 g/dL [facility] Alk phos 208(H) 40 - 130 Units/L [facility] ALT 13 7 - 55 Units/L [facility] AST 27 10 - 50 Units/L [facility] Blood 10/20/2025 5:45 PM WASTEWATER TECHNICIAN 10/20/2025 6:19 PM WASTEWATER TECHNICIAN us Reina Red MD LAB BLOOD ORDERABLES Final Resul t Performing Organization Address City/[facility]/ZIP Co de Phone Number [facility] Department [place] [address] * POCT glucose (10/20/2025 3:58 PM WASTEWATER TECHNICIAN) Glucose, POC 159 70 - 199 mg/dL Blood 10/20/2025 3:58 PM WASTEWATER TECHNICIAN 10/20/2025 3:58 PM WASTEWATER TECHNICIAN us Notinfile Unknown LAB POCT ORDERABLES - DEVICE F inal Result Performing Organization Address City/[facility]/ZIP Co de Phone Number [facility] Department [place] [address] * POCT ketone, blood (10/20/2025 3:58 PM WASTEWATER TECHNICIAN) Beta-Hydroxybut yrate, POC <0.1 0.0 - 0.5 mmol/L Blood 10/20/2025 3:58 PM WASTEWATER TECHNICIAN 10/20/2025 3:58 PM WASTEWATER TECHNICIAN us Notinfile Unknown LAB POCT ORDERABLES - DEVICE F inal Result [facility] Department [place] [address] * Cardiology Document Scan (10/04/2025 3:31 PM WASTEWATER TECHNICIAN) Anatomical Region Laterality Modality Other us Marlene Vallecillo MD CV CARDIAC SERVICES PROCEDU RES Final Result * Cardiology Document Scan (10/03/2025 1:52 PM WASTEWATER TECHNICIAN) Anatomical Region Laterality Modality Other us Marlene Vallecillo MD CV CARDIAC SERVICES PROCEDU RES Final Result * Cardiology Document Scan (10/03/2025 1:50 PM WASTEWATER TECHNICIAN) Anatomical Region Laterality Modality Other us Marlene Vallecillo MD CV CARDIAC SERVICES PROCEDU RES Final Result * Cardiology Document Scan (10/02/2025 1:49 PM WASTEWATER TECHNICIAN) Anatomical Region Laterality Modality Other us Marlene Vallecillo MD CV CARDIAC SERVICES PROCEDU RES Final Result * Cardiology Document Scan (10/02/2025 1:44 PM WASTEWATER TECHNICIAN) Anatomical Region Laterality Modality Other us Marlene Vallecillo MD CV CARDIAC SERVICES PROCEDU RES Final Result * Cardiology Document Scan (10/01/2025 1:42 PM WASTEWATER TECHNICIAN) Anatomical Region Laterality Modality Other us Mikey Pedro MD CV CARDIAC SERVICES PROCEDU RES Final Result * Cardiology Document Scan (09/30/2025 1:31 PM WASTEWATER TECHNICIAN) Anatomical Region Laterality Modality Other Mikey Pedro MD CV CARDIAC SERVICES PROCEDU RES Final Result * (ABNORMAL) Albumin Creatinine Ratio, Urine (06/09/2025 10:33 AM CDT) Albumin Ur 1,218.4 mg/L Comment: Interpretive Data No reference range established. Current interpretive data was last revised 2019. Creatinine Ur 131.1 mg/dL [facility] Comment: Interpretive Data No reference range established. Current interpretive data was last revised 2019. Albumin Creatinine Ratio, Ur 929(H) 1 - 29 mg/g [facility] Urine 06/09/2025 10:3 3 AM CDT 06/09/2025 11:08 AM CDT Diana Cabrera MD LAB URINE ORDERABLES Fin al Result [facility] Department [place] [address] * (ABNORMAL) Lipid panel (05/18/2025 11:05 PM [...] revised on 2018. Triglycerides 155(H) <=149 mg/dL [facility] Comment: Interpretive Data Ages < or [...] revised on 2018. HDL 33(L) >=40 mg/dL [facility] Comment: Interpretive Data Ages < or [...] on 2018. LDL, calculated 62 <=129 mg/dL [facility] Comment: Interpretive Data Ages < or [...] revised on 2024. Non-HDL Cholesterol 89 mg/dL [facility] Comment: Interpretive Data Ages < or [...] last revised on 2018. Chol/HDL ratio 4 [facility] Blood 05/18/2025 11:0 5 PM CDT 05/18/2025 11:29 PM CDT us Lidya Faulkner MD LAB BLOOD ORDERABLES Final Re sult Performing Organization Address City/[facility]/ZIP Co de Phone Number [facility] Department [place] [address] * Hepatitis C antibody Blood (12/02/2024 8:40 PM WASTEWATER TECHNICIAN) Hep C Ab Nonreactive Nonreactive Comment:Antibodies to HCV no t detected. Does NOT exclude the possibility of recent exposure to HCV. 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 12/03/23 12/03/2023 01/01/2024 Insurance [facility] Advance Directives For more information, please contact: [phone] Documents on File Type Date Recorded Patient Machine Plaster Mixer Expl anation ADVANCE DIRECTIVE 07/28/2024 4:37 PM POWER OF SUPERVISOR [employer]-MEDICAL ADVANCE DIRECTIVE 07/26/2024 3:21 PM Malia Dickson POWER OF SUPERVISOR [employer]LE[employer]-MEDICAL * Full Code (Latest Code Status on [...] Health Care Agent Cheo Dickson [facility] Ca re Agent Care Teams Termite Control Technician Relationship Specialty Start Date End Date Masha Amador NP [address] [facility] [address] [address] PCP - General Nurse Practitioner 05/13/24 Aniceto Olivera MD Thoracic Surgery 01/01/24 Miscellaneous, Not In File 01/01/24 Keon Smith DPM [address] [place] [address] Consulting Physician Foot and Ankle Surg 07/13/25
--- OUTSIDE RECORDS SUMMARY | 2025-10-30 16:00 | XMS_ITS | Encounter Summary ---
Author Organization [facility] Healthcare Address [address] [place] [address] Care Team Providers Care Concrete Finisher Apprentice Name Role Phone Aniceto Olivera MD Unavailable Miscellaneous, Not In File Unavailable Unava ilMasha Napier CONSULTING PROJECT DIRECTOR Primary Care Provider [phone] Keon Smith DPM Unavailable [phone] Encounter Details Date Type Department Care Team (Late st Contact Info) Description 04/21/2025 Telephone [facility] Radiology [address] [place] [address] Lisa Lacey RN Social History Tobacco Use Types Packs/Day Years Used Date Smoking Tobacco: Former Cigarettes 1.5 2.1 S tarted: 10/08/2023 Passive Smoke Exposure: Past Smokeless Tobacco: Never [facility] Utilities Answer Date Recorded In the past 12 months has [employer] electric, gas, oil, or water company threatened [...] often do you attend chur ch or restorationism services? More than 4 times per year 12/03/2024 Do you belong to any clubs o r organizations such as synagogue groups, unions, fraternal or athletic groups, or [...] Date Recorded PHQ-2 Total Score 0 12/03/2024 [facility] - Occupational Stress [...] place to sleep or slept in a intermediate (including now)? No 11/25/2023 Housing Stability Vital [...] were you homeless or living in a intermediate (including now)? No 12/03/2024 Personal Safety Answer Date Recorded Have you ever been in or are you currently in a harmful physical or emotional relationship or is someone making you feel afraid or unsafe? Denies 12/01/2024 Sex and Gender Information Value Date Recorded Sex Assigned at Not on file Legal Sex Male 2:41 PM HOPPER OPERATOR Gender Identity Not on file Sexual Orientation [...] documented as of this encounter Care Teams Concrete Finisher Apprentice Relationship Specialty Start Date End Date Masha Amador NP [address] [facility], [address] [address] PCP - General Nurse Practitioner 05/13/24 Aniceto Olivera MD Thoracic Surgery 01/01/24 Miscellaneous, Not In File 01/01/24 Keon Smith DPM [address] [place] [address] Consulting Physician Foot and Ankle Surg 07/13/25 documented as of this encounter
--- OUTSIDE RECORDS SUMMARY | 2025-10-30 16:00 | XMS_ITS | Encounter Summary ---
Author Organization [facility] Address [facility] [place] [address] Care Team Providers Care National Account Director Name Role Phone Uyen Vieyra MD Primary Care Provider [phone] Encounter Details Date Type Department Care Team (Late st Contact Info) Description 09/28/2019 Hospital Follow-up Call [facility] Med/Surg [address] [place] [address] Sujata Carr RN Social History [...] Assessment Author Status No 09/25/2019 1:24 PM PHYSICIAN SUPPORT COORDINATOR Activ e * RETIRED Are you blind or do you have serious difficulty seeing, even when wearing glasses? Answer Date of Assessment Author Status No 09/25/2019 1:24 PM PHYSICIAN SUPPORT COORDINATOR Activ e * Do you have serious [...] on filedocumented in this encounter Care Teams National Account Director Relationship Specialty Start Date End Date Uyen Vieyra MD [address] [place] [address] [place] [address] PCP - General FAMILY PRACTICE 04/17/19 documented as of this encounter
--- OUTSIDE RECORDS SUMMARY | 2025-10-30 16:00 | XMS_ITS | Encounter Summary ---
Author Organization [facility] Address [facility] [place] [address] Care Team Providers Care Publicity Person Name Role Phone Uyen Vieyra MD Primary Care Provider [phone] Reason for Visit * Reason Onset Date Comments Follow Up Call 10/22/2019 Encounter Details Date Type Department Care Team (Late st Contact Info) Description 10/22/2019 Telephone [facility] Med/Surg [address] [place] [address] Qasim Meyers CNA Follow Up [...] Assessment Author Status No 09/25/2019 1:24 PM CUSTOMER SALES SPECIALIST Activ e * RETIRED Are you blind or do you have serious difficulty seeing, even when wearing glasses? Answer Date of Assessment Author Status No 09/25/2019 1:24 PM CUSTOMER SALES SPECIALIST Activ e * Do you have serious [...] on filedocumented in this encounter Care Teams Publicity Person Relationship Specialty Start Date End Date Uyen Vieyra MD [address] [place] [address] [place] [address] PCP - General FAMILY PRACTICE 04/17/19 documented as of this encounter
--- OUTSIDE RECORDS SUMMARY | 2025-10-30 16:00 | XMS_ITS | Clinical Summary ---
Author Organization [facility] Address [address] [place] [address] Care Team Providers Care Applications Systems Analyst Name Role Phone Uyen Vieyra MD Primary Care Provider [phone] Allergies Active Allergy Reactions Criticality Noted Date [...] 108.9 kg (240 lb) 01/10/2020 12:02 PM BUILDING ESTIMATOR Height 185.4 cm (6' 1) 04/17/2020 5:20 PM CDT Body Mass Index 31.66 01/10/2020 12:02 PM BUILDING ESTIMATOR Plan of Treatment Health Maintenance Due Date [...] Comments HEMOGLOBIN, GLYCOSYLATED Routine 09/26/2019 5:58 AM BUILDING ESTIMATOR from Last 3 Months or Most Recently Relevant to Health Maintenance Results * (ABNORMAL) HEMOGLOBIN, GLYCOSYLATED (09/26/2019 5:58 AM BUILDING ESTIMATOR) HGB A1C 10.5(H) <5.7 % 09/26/2019 12:00 PM BUILDING ESTIMATOR [facility] Comment: INCREASED RISK OF DIABETES <5.7% NON-DIABETES 5.7-6.4% INCREASED RISK FOR FUTURE DIABETES > OR = 6.5 CONSISTENT WITH DIABETES STANDARDS OF MEDICAL CARE IN DIABETES-2010 DIABETES CARE, 33(SUPP 1): S1-S61,2010 09/26/2019 5:58 AM BUILDING ESTIMATOR Deisy Gregory PA-C LABORATORY Final Result [facility] [address] [place] [address], from Last 3 Months or Most Recently Relevant to Health Maintenance Insurance [employer] Advance Directives * Full Code (Latest Code Status on File) Date Activated Date Inactivated Comments 09/25/2019 12:09 PM 09/27/2019 12:08 PM Care Teams Applications Systems Analyst Relationship Specialty Start Date End Date Uyen Vieyra MD [address] [place] [address] [place] [address] PCP - General FAMILY PRACTICE 04/17/19
--- OUTSIDE RECORDS SUMMARY | 2025-10-30 16:00 | XMS_ITS ---
Care Plan - [facility] Created on: October 30, 2025 LYDIA VILLA Childers : 1980 Sex: Male Author Organization [facility] Address [address] [place] [id number] Phone Care Team Providers Care Grill Chef Name Role Phone MARIELLA YANEZ, JOSE Barrientos Primary Care Provider [phone] TARA YANEZ, JOSELIN Wells Unavailable [phone]
--- OUTSIDE RECORDS SUMMARY | 2025-10-30 16:00 | XMS_ITS | Encounter Summary ---
Author Organization [facility] Address [address] [place] [address] Care Team Providers Care Marketing Project Coordinator Name Role Phone Aniceto Olivera MD Unavailable [phone] Miscellaneous, Not In File Unavailable Unava Masha Kelley [employer]CH[employer]IC Primary Care Provider [phone] Keon Smith DPM Unavailable [phone] Encounter Details Date Type Department Care Team (Late st Contact Info) Description 01/25/2025 Telephone Radiology [address] [place] [address] Tommy Cedeno RN Social History Tobacco Use Types Packs/Day Years Used Date Smoking Tobacco: Former Cigarettes 1.5 2.1 S tarted: 10/08/2023 Passive Smoke Exposure: Past Smokeless Tobacco: Never [facility] Utilities Answer Date Recorded In the past 12 months has [employer], gas, oil, or water company threatened [...] week 12/03/2024 How often do you attend [facility] or [facility] services? More than 4 times per year 12/03/2024 Do you belong to any clubs o r organizations such as pentecostalism groups, unions, fraternal or athletic groups, or [...] Date Recorded PHQ-2 Total Score 0 12/03/2024 [facility] - Occupational [...] No 12/03/2024 Housing Stability Vital Sign Answer Atnhony e Recorded In the last 12 months, [...] place to sleep or slept in a nursing home (including now)? No 11/25/2023 Housing Stability Vital Sign Answer Anthony e Recorded In the last 12 months, was t here a time when you were not able to pay the mortgage or rent on time? No 12/03/2024 In the past 12 months, how m any times have you moved where you were living? 0 12/03/2024 At any time in the past 12 m [facility], were you homeless or living in a nursing home (including now)? No 12/03/2024 Personal Safety Answer Date Recorded Have you ever been in or are you currently in a harmful physical or emotional relationship or is someone making you feel afraid or unsafe? Denies 12/01/2024 Sex and Gender Information Value Date Recorded Sex Assigned at Not on file Legal Sex Male 2:41 PM [employer] Gender Identity Not on file Sexual Orientation [...] documented as of this encounter Care Teams Marketing Project Coordinator Relationship Specialty Start Date End Date Masha Amador NP [address] [facility] [address] [place] [address] PCP - General Nurse Practitioner 05/13/24 Aniceto Olivera MD Thoracic Surgery 01/01/24 Miscellaneous, Not In File 01/01/24 Keon Smith, DPM [address] [place] [address] Consulting Physician Foot and Ankle Surg 07/13/25 documented as of this encounter
== END 2025-10-30 15:27 | disposition home or self-care (01) ==
PROVIDERS: Emergency Provider Emergency Medicine; PCP Nurse Practitioner Gerontology
DX: R10.A1 Flank pain, right side (principal); I12.9 Hypertensive chronic kidney disease with stage 1 through stage 4 chronic kidney disease, or unspecified chronic kidney disease; E11.22 Type 2 diabetes mellitus with diabetic chronic kidney disease; N18.32 Chronic kidney disease, stage 3b; J44.9 Chronic obstructive pulmonary disease, unspecified; Z87.891 Personal history of nicotine dependence
CPT/HCPCS: 36415; 74176; 80053; 81001; 85025; 99284; A9270